=== PATIENT | female | born 1980 | race Two or more races ===

== ENCOUNTER → 2020-06-11 12:52 | Outpatient (BNVA) | payer OTHER, SELFPAY | PROVIDERS: PCP Internal Medicine Geriatric Medicine; Referring Provider Internal Medicine Geriatric Medicine; Visit Provider Internal Medicine | DX: Z76.89 Persons encountering health services in other specified circumstances (principal) | CPT/HCPCS: 99214 ==

== ENCOUNTER 2020-07-09 10:37 | Outpatient (REF) | payer OTHER, SELFPAY ==
[2020-07-09 12:57] LABS: Thyroid Stimulating Hormone 0.04 mIU/mL (0.32-4.0)
== END 2020-07-09 10:38 | disposition home or self-care (01) ==
LOC: HO.LAB 10:37
PROVIDERS: PCP Internal Medicine Geriatric Medicine; Visit Provider Internal Medicine
DX: C73 Malignant neoplasm of thyroid gland (principal)
CPT/HCPCS: 84439; 84443

== ENCOUNTER 2020-08-18 09:31 | Outpatient (REF) | payer OTHER, SELFPAY | END 2020-08-18 09:32 | disposition home or self-care (01) | LOC: HO.LAB 09:31 | PROVIDERS: PCP Internal Medicine Geriatric Medicine; Visit Provider Internal Medicine | DX: Z13.89 Encounter for screening for other disorder (principal) ==

== ENCOUNTER 2020-08-20 07:49 | Outpatient (REF) | payer OTHER, SELFPAY ==
[2020-08-20 14:10] LABS: Free T4 (Free Thyroxine) 1.47 ng/dL (0.71-1.85); Thyroid Stimulating Hormone 0.33 uIU/mL (0.32-4.0)
[2020-08-25 23:57] LABS: FT4 by Equilib. Dialysis 2.4 ng/dL (0.9-2.2)
== END 2020-08-20 07:50 | disposition home or self-care (01) ==
LOC: HO.LAB 07:49
PROVIDERS: PCP Internal Medicine Geriatric Medicine; Visit Provider Internal Medicine
DX: C73 Malignant neoplasm of thyroid gland (principal); E89.0 Postprocedural hypothyroidism; E55.9 Vitamin D deficiency, unspecified
CPT/HCPCS: 84439; 84443

== ENCOUNTER 2020-10-09 11:45 | Outpatient (REF) | payer OTHER, SELFPAY ==
[2020-10-09 14:56] LABS: Free T4 (Free Thyroxine) 1.46 ng/dL (0.71-1.85); Thyroid Stimulating Hormone 0.12 uIU/mL (0.32-4.0)
[2020-10-10 06:47] LABS: Triiodothyronine T3 Total 62 ng/dL (76-181)
[2020-10-18 06:27] LABS: FT4 by Equilib. Dialysis 2.6 ng/dL (0.9-2.2)
== END 2020-10-09 11:46 | disposition home or self-care (01) ==
LOC: HO.10HDL 11:45
PROVIDERS: Visit Provider Internal Medicine
DX: E89.0 Postprocedural hypothyroidism (principal); C73 Malignant neoplasm of thyroid gland
CPT/HCPCS: 36415; 84439; 84443; 84480

== ENCOUNTER → 2020-10-15 08:05 | Outpatient (BNVA) | payer OTHER, SELFPAY | PROVIDERS: PCP Internal Medicine Geriatric Medicine; Visit Provider Internal Medicine ==

== ENCOUNTER 2020-10-30 16:21 | Outpatient (REF) | payer OTHER, SELFPAY ==
--- NOTE | ~2020-10-30 | US_ITS ---
EXAMINATION: US SOFT TISSUE NECK CLINICAL INFORMATION: C73 - Malignant neoplasm of thyroid gland COMPARISON: CT neck with contrast, report 04/22/2019, ultrasound-guided lymph node fine-needle aspiration report 04/20/2019. TECHNIQUE: Ultrasound of the neck soft tissues is performed with high frequency duffy-scale imaging and color Doppler. FINDINGS: RIGHT NECK SOFT TISSUES: Scattered architecturally normal nodes are present. The nodes show normal fatty hilus, normal cortical thickness, and no cystic change or calcification. No abnormal color flow. The largest nodes are as follows: Level 2: 2.1 x 0.7 x 1.3 cm. Normal nicole architecture. Level 2: 1.4 x 0.5 x 1.2 cm. Normal nicole architecture. Level 3: 1.9 x 0.7 x 1.4 cm. Normal nicole architecture. LEFT NECK SOFT TISSUES: Scattered architecturally normal nodes are present. The nodes show normal fatty hilus, normal cortical thickness, and no cystic change or calcification. No abnormal color flow. Level 1B: 1.2 x 0.6 x 0.9 cm. Normal nicole architecture. Level 1B: 1.2 x 0.5 x 0.9 cm. Normal nicole architecture. US/US soft tiss head and/or neck IMPRESSION: 1. Bilateral architecturally normal nodes. No lymphadenopathy. 2. If further evaluation is clinically indicated, CT neck with contrast would be recommended.
== END 2020-10-30 16:22 | disposition home or self-care (01) ==
LOC: HO.US 16:21
PROVIDERS: PCP Internal Medicine Geriatric Medicine; Visit Provider Internal Medicine
DX: C73 Malignant neoplasm of thyroid gland (principal)
CPT/HCPCS: 76536

== ENCOUNTER → 2020-11-19 12:49 | Outpatient (BNVA) | payer OTHER, SELFPAY | PROVIDERS: PCP Internal Medicine Geriatric Medicine; Visit Provider Internal Medicine | DX: C73 Malignant neoplasm of thyroid gland (principal) | CPT/HCPCS: 96372 ==

== ENCOUNTER → 2020-11-20 12:53 | Outpatient (BNVA) | payer OTHER, SELFPAY | PROVIDERS: PCP Internal Medicine Geriatric Medicine; Visit Provider Internal Medicine Endocrinology, Diabetes & Metabolism | DX: C73 Malignant neoplasm of thyroid gland (principal) | CPT/HCPCS: 96372 ==

== ENCOUNTER 2020-11-21 12:45 | Outpatient (REF) | payer OTHER, SELFPAY ==
[2020-11-21 14:44] LABS: Thyroid Stimulating Hormone 91.16 uIU/mL (0.32-4.0)
[2020-11-22 18:01] LABS: Thyroglobulin 0.3 ng/mL; Thyroglobulin Antibodies 6 IU/mL (< or = 1)
== END 2020-11-21 12:46 | disposition home or self-care (01) ==
LOC: HO.10HDL 12:45
PROVIDERS: Visit Provider Internal Medicine
DX: C73 Malignant neoplasm of thyroid gland (principal)
CPT/HCPCS: 36415; 84432; 84443; 86800

== ENCOUNTER 2020-11-22 12:35 | Outpatient (REF) | payer OTHER, SELFPAY ==
[2020-11-22 14:45] LABS: Thyroid Stimulating Hormone 26.82 uIU/mL (0.32-4.0)
[2020-11-23 05:12] LABS: Thyroglobulin 0.3 ng/mL
[2020-11-23 09:07] LABS: Thyroglobulin Antibodies 6 IU/mL (< or = 1)
== END 2020-11-22 12:36 | disposition home or self-care (01) ==
LOC: HO.10HDL 12:35
PROVIDERS: Visit Provider Internal Medicine
DX: C73 Malignant neoplasm of thyroid gland (principal)
CPT/HCPCS: 36415; 84432; 84443; 86800

== ENCOUNTER → 2020-12-17 09:13 | Outpatient (BNVA) | payer OTHER, SELFPAY | PROVIDERS: PCP Internal Medicine Geriatric Medicine; Visit Provider Internal Medicine ==

== ENCOUNTER 2020-12-18 12:27 | Outpatient (REF) | payer OTHER, SELFPAY ==
[2020-12-18 14:27] LABS: Free T4 (Free Thyroxine) 1.05 ng/dL (0.71-1.85); Thyroid Stimulating Hormone 11.05 uIU/mL (0.32-4.0)
[2020-12-26 18:32] LABS: FT4 by Equilib. Dialysis 1.8 ng/dL (0.9-2.2)
== END 2020-12-18 12:28 | disposition home or self-care (01) ==
LOC: HO.10HDL 12:27
PROVIDERS: Visit Provider Internal Medicine
DX: C73 Malignant neoplasm of thyroid gland (principal)
CPT/HCPCS: 36415; 84439; 84443

== ENCOUNTER 2021-02-09 07:15 | Outpatient (REF) | payer OTHER, SELFPAY ==
[2021-02-09 09:01] LABS: Free T4 (Free Thyroxine) 1.46 ng/dL (0.71-1.85)
[2021-02-11 20:17] LABS: Thyroglobulin Antibodies 4 IU/mL (< or = 1); Triiodothyronine T3 Total 98 ng/dL (76-181)
[2021-02-12 01:06] LABS: Thyroglobulin <0.1 ng/mL
[2021-02-16 01:36] LABS: FT4 by Equilib. Dialysis 2.7 ng/dL (0.9-2.2)
== END 2021-02-09 07:16 | disposition home or self-care (01) ==
LOC: HO.LAB 07:15
PROVIDERS: PCP Internal Medicine Geriatric Medicine; Visit Provider Internal Medicine
DX: C73 Malignant neoplasm of thyroid gland (principal); E89.0 Postprocedural hypothyroidism
CPT/HCPCS: 36415; 84432; 84439; 84443; 84480; 86800

== ENCOUNTER → 2021-02-11 09:09 | Outpatient (BNVA) | payer OTHER, SELFPAY | PROVIDERS: PCP Internal Medicine Geriatric Medicine; Visit Provider Internal Medicine ==

== ENCOUNTER 2021-05-15 11:45 | Outpatient (REF) | payer OTHER, SELFPAY ==
[2021-05-15 14:29] LABS: Free T4 (Free Thyroxine) 1.41 ng/dL (0.71-1.85); Thyroid Stimulating Hormone 0.53 uIU/mL (0.32-4.0)
[2021-05-22 06:17] LABS: FT4 by Equilib. Dialysis 2.1 ng/dL (0.9-2.2)
== END 2021-05-15 11:46 | disposition home or self-care (01) ==
LOC: HO.10HDL 11:45
PROVIDERS: Visit Provider Internal Medicine
DX: E89.0 Postprocedural hypothyroidism (principal)
CPT/HCPCS: 36415; 84439; 84443

== ENCOUNTER → 2021-05-16 08:24 | Outpatient (BNVA) | payer OTHER, SELFPAY | PROVIDERS: PCP Internal Medicine Geriatric Medicine; Visit Provider Internal Medicine ==

== ENCOUNTER 2021-05-17 17:07 | Emergency (ER) | payer OTHER, SELFPAY ==
--- NOTE | ~2021-05-17 | XR_ITS ---
EXAMINATION: XR LUMBOSACRAL SPINE CLINICAL INFORMATION: Low back pain COMPARISON: None TECHNIQUE: Three views of the lumbosacral spine. FINDINGS: The vertebral bodies and posterior elements are normal aside from some minimal superior spondylitic endplate changes at L4.. The disc spaces are preserved and the vertebral alignment is normal. The paraspinal soft tissues are normal. Surgical clips are present in the upper abdomen. XR/XR lumbar spine 2-3V IMPRESSION: Unremarkable examination.
[2021-05-17 17:54] VITALS: BP 151/93; PULSE 73; RESP 16; TEMP 37.2; O2SAT 98; BMI 41.3
--- NOTE | 2021-05-17 21:26 | ED.ABDPAIN ---
HPI - Abdominal Pain General Chief Complaint: Extremity Injury, Lower Stated Complaint: leg pain Time Seen by Provider: 05/17/21 22:51 Source: patient Mode of arrival: ambulatory Limitations: no limitations History of Present Illness HPI narrative: 41-year-old female presents for left lower quadrant abdominal pain radiating to her groin and to her back and down the right knee. States that she has had this pain for approximately 2 days. Does not report any injury or any other concerning symptoms. MD elicited complaint: abdominal pain Onset (ago): day(s) (2) Pain Consistency: constant Severity: moderate Quality: cramping and aching Radiation: L flank Exacerbating factors: movement Relieving factors: nothing Associated symptoms: denies other symptoms Related Data Patient : No Home Medications Medication Instructions Recorded Confirmed ipratropium 20 mcg-albuterol 100 1 puff INHALATION QID 06/11/20 05/16/21 mcg/actuation mist for inhalation (Combivent Respimat) fluticasone propionate 50 1 spray INTRANASAL DAILY PRN 10/15/20 05/16/21 mcg/actuation nasal spray,suspension (Flonase Allergy Relief) Previous Rx's Medication Instructions Recorded levothyroxine 175 mcg tablet 175 mcg PO DAILY 30 Days #30 tab 12/19/20 nitrofurantoin 100 mg PO Q12H 7 Days #14 cap 05/17/21 monohydrate/macrocrystals 100 mg capsule (Macrobid) phenazopyridine 200 mg tablet 200 mg PO TID PRN #6 tab 05/17/21 (Pyridium) Allergies Allergy/AdvReac Type Severity Reaction Status Date / Time drospirenone [From SHAQ 28] Allergy Unknown SWELLING Verified 05/16/21 09:30 ethinyl estradiol Allergy Unknown SWELLING Verified 05/16/21 09:30 [From SHAQ 28] naproxen [From NAPROSYN] Allergy Unknown SWELLING Verified 05/16/21 09:30 sulfamethoxazole Allergy Unknown RASH Verified 05/16/21 09:30 [From BACTRIM] trimethoprim [From BACTRIM] Allergy Unknown RASH Verified 05/16/21 09:30 adhesive tape Allergy Unknown Unknown Uncoded 05/16/21 09:30 uti antibiotic Allergy Unknown Unknown Uncoded 05/16/21 09:30 Review of Systems Review of Systems Constitutional: No Fever, No Chills ENT/Mouth: No Ear Pain, No Hoarseness, No sore throat Eyes: No Eye Pain, No Swelling, No Redness, No Foreign Body Cardiovascular: No Chest Pain, No SOB Respiratory: No Cough, No Dyspnea Gastrointestinal: No Nausea, No Vomiting, No Diarrhea, positive abdominal Pain Genitourinary: No Dysuria, No Hematuria Musculoskeletal: positive lower back pain, No Myalgias, No Joint Swelling Skin: No Skin lacerations, No rash Neuro: No Weakness, No Numbness, No Paresthesias, No Loss of Consciousness, No Dizziness, No Headache Psych: No Anxiety/Panic, No Depression Heme/Lymph: no easy bruising, no Lymphadenopathy Endocrine: No Polyuria, No Polydipsia Yes all other systems are reviewed and are negative Physical Exam Vital Signs: Vital Signs: Last Vital Signs Temp 98.9 F 05/17/21 17:54 Pulse 73 05/17/21 17:54 Resp 16 05/17/21 17:54 BP 151/93 H 05/17/21 17:54 Pulse Ox 98 05/17/21 17:54 Body Mass Index 41.3 Appearance: Alert. Oriented X3. No acute distress. Eyes: Pupils equal, round and reactive to light. ENT: Pharynx normal. Neck: Normal inspection. Neck supple. CVS: Normal heart rate and rhythm. Pulses normal. Respiratory: No respiratory distress. Breath sounds normal. Abdomen: Soft and nontender. Skin: Skin warm and dry. Normal skin color. Normal skin turgor. Extremities: No lower extremity edema. Strength 5/5 to all extremities, gait well balanced well coordinated. Neuro: No motor deficit. No sensory deficit. Cranial nerves 2 through 12 intact. Course Course Course Narrative: 41-year-old female presents with left lower abdominal pain radiating to her groin and lower back pain. States that she is also trying to get at this time. Will order urinalysis and U preg. U preg is negative will order lumbar spine x-ray. Urinalysis positive for UTI. Lumbar x-ray negative. U preg negative. Plan of care is to treat for UTI. Patient verbalized understanding of and agrees to plan care discharge home. MDM - Abdominal Pain MDM Narrative Medical decision making narrative: UTI Differential Diagnosis Differential diagnosis: Likely abdominal pain and constipation Medical Records Attestation: I reviewed the patient's medical records. Lab Data Attestation: I reviewed the patient's lab results. Labs: Lab Results 05/17/21 05/17/21 Range/Units 22:17 22:17 Urine Color DK YELLOW Urine Appearance CLEAR Urine pH 6.0 (5.0-8.0) Ur Specific [place] >= 1.030 H (1.005-1.025) Urine Protein NEG (NEG-TRACE) MG/DL Urine Glucose (UA) NEG (NEG) MG/DL Urine Ketones 15 (NEG) MG/DL Urine Blood NEG (NEG) Urine Nitrite NEG (NEG) Ur Leukocyte Esterase 2+ H (NEG) Urine RBC 1-4 (0) /HPF Urine WBC 15-29 H (0-4) /HPF Ur Squamous Epith Cells 3+ /LPF Uric Acid Crystals 1+ /LPF Urine Bacteria 2+ /LPF Urine Mucus 4+ /LPF Urine Test NEGATIVE (NEGATIVE) Imaging Data Lumbar: Attestation: I personally reviewed and interpreted this imaging study as follows: Radiologist's impression: EXAMINATION: XR LUMBOSACRAL SPINE CLINICAL INFORMATION: Low back pain COMPARISON: None TECHNIQUE: Three views of the lumbosacral spine. FINDINGS: The vertebral bodies and posterior elements are normal aside from some minimal superior spondylitic endplate changes at L4.. The disc spaces are preserved and the vertebral alignment is normal. The paraspinal soft tissues are normal. Surgical clips are present in the upper abdomen. XR/XR lumbar spine 2-3V IMPRESSION: Unremarkable examination. Discharge Plan Discharge Clinical Impression: Urinary tract infection Qualifiers: Urinary tract infection type: acute cystitis Hematuria presence: with hematuria Qualified Code(s): N30.01 - Acute cystitis with hematuria Patient Disposition: Home, Self-Care Instructions: Urinary Tract Infection in Women (ED) Additional Instructions: You were evaluated for lower back pain and groin pain. Urinalysis positive for UTI. Please take Macrobid twice a day for the next 7 days. This medication is an antibiotic. Please use Pyridium for bladder spasms and pain. This medication will turn your urine bright orange. This is a normal side effect of this medication. Thank you for choosing this emergency department for evaluation. Please follow-up with primary care physician as needed. Return to the emergency department for any new, concerning, or worsening symptoms. Prescriptions: New phenazopyridine [Pyridium] 200 mg tablet 200 mg PO TID PRN (Reason: pain) Qty: 6 RF: 0 nitrofurantoin monohyd/m-cryst [Macrobid] 100 mg capsule 100 mg PO Q12H 7 Days Qty: 14 RF: 0 No Action levothyroxine 175 mcg tablet 175 mcg PO DAILY 30 Days Qty: 30 RF: 4 Combivent Respimat 20-100 mcg/actuation mist 1 puff inhalation QID RF: 0 fluticasone propionate [Flonase Allergy Relief] 50 mcg/actuation spray,suspension 1 spray intranasal DAILY PRN (Reason: nasal congestion) RF: 0 Interventions: ED Discharge Assessment Last Done: 05/18/21 00:01 Discharge Date/Time: 05/18/21 00:02 [facility] Past Medical History Attestation statement: The following information was validated with the patient. Source: old records reviewed Medical History Hypothyroidism Thyroid cancer Vitamin D deficiency Surgical History Hx of dilation and curettage Hx of thyroidectomy Family History Family History Father Asthma Hypertension Mother Hypertension Social History Social History Alcohol intake: current Alcohol intake frequency: holidays/special occasions only Patient Tobacco Use Status: Never used Tobacco Advance Directives: No Advance Directives Information Provided: No Patient : No
[2021-05-17 22:23] LABS: Appearance Urine CLEAR; Color Urine DK YELLOW; Glucose Urine UA NEG (NEG); Leukocyte Esterase Urine 2+ (NEG); Nitrite Urine NEG (NEG); Specific Gravity - Urine >= 1.030 (1.005-1.025); UACC Culture Trigger YES; Urine Blood NEG (NEG); Urine Ketones 15 MG/DL (NEG); Urine Protein NEG (NEG-TRACE)
[2021-05-17 22:38] LABS: Bacteria Urine 2+ /LPF; Mucus Urine 4+ /LPF; Squamous Epithelial Cell Urine 3+ /LPF; UPreg QC Valid YES; Uric Acid Crystals Urine 1+ /LPF; Urine Pregnancy NEGATIVE (NEGATIVE)
[2021-05-18] MEDS: Phenazopyridine HCL 200 MG TABLET PO (00:01)
[2021-05-18] MEDS: Nitrofurantoin Monohyd/M-Cryst 100 MG CAPSULE PO (00:01)
== END 2021-05-18 00:02 | disposition home or self-care (01) ==
PROVIDERS: Nurse Practitioner Family; Emergency Provider Emergency Medicine Emergency Medical Services; PCP Internal Medicine Geriatric Medicine
DX: N30.01 Acute cystitis with hematuria (principal); M54.5 Low back pain; R10.32 Left lower quadrant pain; Z79.899 Other long term (current) drug therapy
CPT/HCPCS: 72100; 81001; 81025; 87086; 87147; 99283

== ENCOUNTER 2021-05-21 11:24 | Outpatient (REF) | payer OTHER, SELFPAY ==
--- NOTE | ~2021-05-21 | US_ITS ---
EXAMINATION: US SOFT TISSUE NECK CLINICAL INFORMATION: Thyroid cancer. COMPARISON: 10/30/2020 TECHNIQUE: Ultrasound of the neck soft tissues is performed with high- frequency duffy-scale imaging and color Doppler. FINDINGS: THYROID BED: Prior thyroidectomy. No residual thyroid tissue demonstrated in the thyroid bed. No cystic or solid nodules demonstrated in the thyroid bed. There are numerous normal-appearing lymph nodes seen bilaterally RIGHT NECK SOFT TISSUES: Scattered lymph nodes are present. Some appear normal with normal fatty clefts and smooth margins without cortical thickening or lobulation. A few are abnormal and will be listed. The largest nodes are as follows: Level 3: 2.2 x 0.6 x 0.6 cm. Normal nicole architecture Level 3: 1.9 x 0.7 x 1.4 cm. Normal nicole architecture. Cortical thickness of 2.5 mm. There is an abnormal right level 1B lymph node that was not previously seen measuring 5 x 5 x 5 mm in size. It is rounded in appearance without fatty hilum identified. There is an abnormal lymph node seen within level 1B measuring 1.1 x 0.5 x 0.9 cm in size with a nodular cortex. There is normal fatty cleft present and no cortical thickening. There is an abnormal lymph node seen at level 1B which is essentially stable in size to previous study measuring 8 x 6 x 8 mm in size with some cortical nodularity but without significant change from prior study. Fatty hilum present. There is an abnormal-appearing lymph node level IA measuring 3 x 2 x 3 mm in size which is smaller than on prior study where it measured 5 x 4 x 5 mm in size. LEFT NECK SOFT TISSUES: Scattered architecturally normal nodes are present. The nodes show normal fatty hilus, normal cortical thickness, and no cystic change or calcification. No abnormal color flow. The largest nodes are as follows: Level 3: 1.1 x 0.3 x 0.8 cm. Normal nicole architecture. This was not noted on previous study. Level 3: 1.3 x 0.5 x 0.6 cm. Normal nicole architecture. This has enlarged and previously was 1.3 x 0.5 x 0.6 cm in size. Level 1B: 1.5 x 0.5 x 1.2 cm in size compared to previous study where it measured 1.2 x 0.6 x 0.9 cm in size. Normal nicole architecture. There are 3 other lymph nodes that were not seen on prior study: One within level 2 measuring 5 x 2 x 5 mm in size. This has normal architecture. Another is in level 3 measuring 1.1 x 0.3 x 0.8 cm in size. This has normal architecture. The third is in segment 5A measuring 6 x 4 x 5 mm in size with normal architecture. US/US soft tiss head and/or neck IMPRESSION: Numerous bilateral neck lymph nodes with normal architecture on the left with a few lymph nodes not noted previously as described. Some abnormal-appearing right neck lymph nodes as described above. In previous report it is stated that biopsies were performed of bilateral lymph nodes however none are listed as being within level 1 within the right neck where most of the abnormal-appearing lymph nodes are seen.
== END 2021-05-21 11:25 | disposition home or self-care (01) ==
LOC: HO.HMGCX 11:24
PROVIDERS: PCP Internal Medicine Geriatric Medicine; Visit Provider Internal Medicine
DX: C73 Malignant neoplasm of thyroid gland (principal)
CPT/HCPCS: 76536

== ENCOUNTER 2021-05-27 16:40 | Emergency (ER) | payer OTHER, SELFPAY ==
--- NOTE | ~2021-05-27 | CT_ITS ---
EXAMINATION: CT ABDOMEN AND PELVIS WITHOUT CONTRAST CLINICAL INFORMATION: Left flank pain COMPARISON: None TECHNIQUE: Multidetector volumetric imaging was performed from the superior aspect of the liver through the pubic symphysis. Sagittal and coronal reformatted images were obtained on the technologist's workstation. This CT examination was performed using dose optimization techniques as appropriate, variously including the following: *Automated exposure control *Adjustment of mA and/or kV according to patient size (this includes techniques or standardized protocols for targeted exams where dose is matched to indication/reason for exam; i.e. extremities or head) *Use of iterative reconstruction technique DLP: 895 mGy-cm FINDINGS: LUNG BASES: There is a 4 mm lung nodule in the right lower lobe (4:34). Some minimal bibasilar atelectasis is seen. The visualized lung bases are otherwise unremarkable. LIVER, GALLBLADDER, AND BILIARY TREE: The liver is normal in size, shape, and attenuation. No focal hepatic lesion or biliary ductal dilatation is present. The gallbladder is unremarkable with no evidence of radiopaque gallstones, gallbladder wall thickening, or obvious pericholecystic inflammatory changes. PANCREAS: Unremarkable. SPLEEN: There is mild splenic enlargement with the spleen measuring 12.9 cm in greatest length. ADRENAL GLANDS: Unremarkable. KIDNEYS AND URETERS: The kidneys are normal in size, shape, and attenuation. No hydronephrosis, hydroureter, or calculi seen. No perinephric stranding. BLADDER: Unremarkable. GASTROINTESTINAL TRACT: There is been previous bariatric gastric surgery. The small and large bowel are unremarkable. The appendix is is not seen but there is no evidence of appendicitis. ABDOMINAL WALL: No significant hernia is appreciated. Tiny umbilical hernia seen containing only fat. LYMPH NODES: Normal. VASCULAR: Unremarkable. PELVIC VISCERA: An anteverted uterus is present. An abnormal adnexal mass is not present. A small amount of fluid is present in the cul-de-sac. OSSEOUS STRUCTURES: Unremarkable. CT/CT abdomen pelvis wo con IMPRESSION: 1. An etiology for the patient's left flank pain is not seen. 2. Incidental note made of mild splenomegaly, prior bariatric surgery and 4 mm right lower lobe lung nodule. According to the UPDATED 2017 Fleischner Society recommendations, the advised follow-up imaging for solid nodules < 6 mm is: LOW RISK PATIENT: No routine follow-up. HIGH RISK PATIENT: Optional CT at 12 months.
[2021-05-27 17:32] VITALS: BP 146/101; PULSE 67; RESP 18; TEMP 36.1; O2SAT 100; BMI 41.7
[2021-05-27 17:56] LABS: Appearance Urine HAZY; Color Urine YELLOW; Glucose Urine UA NEG (NEG); Leukocyte Esterase Urine NEG (NEG); Nitrite Urine NEG (NEG); PH 6.5 (5.0-8.0); UACC Culture Trigger NO; Urine Blood TRACE (NEG); Urine Ketones 5 MG/DL (NEG); Urine Protein TRACE MG/DL (NEG-TRACE)
[2021-05-27 18:27] LABS: Bacteria Urine 1+ /LPF; Squamous Epithelial Cell Urine 2+ /LPF; WBC Urine 0 /HPF (0-4)
--- NOTE | 2021-05-27 20:55 | ED.BACK ---
HPI - Back Pain/Injury General Chief Complaint: General Medical Stated Complaint: hip pain, low back pain Time Seen by Provider: 05/27/21 20:54 Source: patient Mode of arrival: ambulatory Limitations: no limitations History of Present Illness MD elicited complaint: back pain Onset (ago): week(s) (1) Timing: constant Severity: severe Similar Symptoms Previously: No Quality: sharp Location: lumbar spine Radiation: groin, buttocks and left upper leg Relieving factors: movement Context: unknown Associated symptoms: denies other symptoms Treatments prior to arrival: other (was seen recently had xrays - UA + took abx no relief of pain) Work related injury: No Related Data Home Medications Medication Instructions Recorded Confirmed ipratropium 20 mcg-albuterol 100 1 puff INHALATION QID 06/11/20 05/16/21 mcg/actuation mist for inhalation (Combivent Respimat) fluticasone propionate 50 1 spray INTRANASAL DAILY PRN 10/15/20 05/16/21 mcg/actuation nasal spray,suspension (Flonase Allergy Relief) Previous Rx's Medication Instructions Recorded levothyroxine 175 mcg tablet 175 mcg PO DAILY 30 Days #30 tab 12/19/20 nitrofurantoin 100 mg PO Q12H 7 Days #14 cap 05/17/21 monohydrate/macrocrystals 100 mg capsule (Macrobid) phenazopyridine 200 mg tablet 200 mg PO TID PRN #6 tab 05/17/21 (Pyridium) cyclobenzaprine 10 mg tablet 10 mg PO TID PRN #14 tab 05/27/21 ibuprofen 600 mg tablet 600 mg PO Q6H PRN #30 tab 05/27/21 lidocaine 4 % topical patch 1 patch TOPICAL DAILY PRN #10 ea 05/27/21 prednisone 20 mg tablet 20 mg PO DAILY 5 Days #5 tab 05/27/21 Allergies Allergy/AdvReac Type Severity Reaction Status Date / Time drospirenone [From SHAQ 28] Allergy Unknown SWELLING Verified 05/16/21 09:30 ethinyl estradiol Allergy Unknown SWELLING Verified 05/16/21 09:30 [From SHAQ 28] naproxen [From NAPROSYN] Allergy Unknown SWELLING Verified 05/16/21 09:30 sulfamethoxazole Allergy Unknown RASH Verified 05/16/21 09:30 [From BACTRIM] trimethoprim [From BACTRIM] Allergy Unknown RASH Verified 05/16/21 09:30 adhesive tape Allergy Unknown Unknown Uncoded 05/16/21 09:30 uti antibiotic Allergy Unknown Unknown Uncoded 05/16/21 09:30 Review of Systems Review of Systems: Constitutional : No Weight loss, No Fever, No Chills, ENT/Mouth : No Hearing loss, No Ear Pain, No Nasal Congestion, No Sinus Pain, No Hoarseness, No sore throat, No Rhinorrhea, No Swallowing Difficulty Cardiovascular : No Chest Pain, No SOB Respiratory : No Cough, No Dyspnea Gastrointestinal : No Nausea, No Vomiting, No Diarrhea, No abdominal Pain, No Hematochezia, No Melena Genitourinary : No Dysuria, No Urinary Frequency, No Hematuria, No Urinary Incontinence, Musculoskeletal : positive back pain Skin : No Skin Lesions, No rash Neuro : No Weakness, No Numbness, No Paresthesias, no loss of bowel or bladder incontinence, no saddle anesthesia PMFSH Past Medical History Attestation statement: The following information was validated with the patient. Medical History Hypothyroidism Thyroid cancer Vitamin D deficiency Surgical History Hx of dilation and curettage Hx of thyroidectomy Family History Family History Father Asthma Hypertension Mother Hypertension Social History Social History Alcohol intake: current Alcohol intake frequency: holidays/special occasions only Patient Tobacco Use Status: Never used Tobacco Advance Directives: No Advance Directives Information Provided: No Physical Exam Vital Signs: Vital Signs: Last Vital Signs Temp 97.0 F 05/27/21 17:32 Pulse 57 05/27/21 21:36 Resp 16 05/27/21 21:36 BP 131/72 05/27/21 21:36 Pulse Ox 100 05/27/21 21:36 Body Mass Index 41.7 Appearance: Alert. Oriented X3. No acute distress. Eyes: Pupils equal, round and reactive to light. ENT: Pharynx normal. Neck: Normal inspection. Neck supple. CVS: Normal heart rate and rhythm. Pulses normal. Respiratory: No respiratory distress. Breath sounds normal. Abdomen: Soft and nontender. Back: ttp in L buttock radiates pain down LLE - NV intact distally Skin: Skin warm and dry. Normal skin color. Normal skin turgor. Extremities: No lower extremity edema. No calf ttp Neuro: Oriented X 3. No motor deficit. No sensory deficit. MDM - Back Pain/Injury MDM Narrative Medical decision making narrative: 41 yo female with hx of thyroid cancer - at this time c/o L sciatica distal NV intact, no b/b incontinence, no saddle anesthesia - no AC therapy, at this time will treat with toradol and flexeril. She does have history of thyroid cancer - CT scan for mass ordered, just had neck US there were some slight enlarged lymph nodes though I do think this is sciatica. Lab Data Result diagrams: 05/27/21 21:14 05/27/21 21:14 Labs: Lab Results 05/27/21 05/27/21 05/27/21 Range/Units 17:48 21:14 21:14 WBC 4.2 L (4.8-10.8) X10*3/uL RBC 4.03 L (4.20-5.50) X10*6/uL Hgb 12.0 (12.0-16.0) g/dl Hct 36.4 L (37-47) % MCV 90.3 (80-98) fL MCH 29.8 (27.0-33.0) pg MCHC 33.0 (31.0-35.0) g/dl RDW 14.3 (11.0-16.0) % Plt Count 171 (160-400) X10*3/uL MPV 12.7 H (9.4-12.3) fL Immature Gran % (Auto) 0.0 (0.0-0.4) % Neut % (Auto) 46.7 (45-73) % Lymph % (Auto) 32.1 (20-40) % [place] % (Auto) 13.8 H (2-11) % Eos % (Auto) 6.4 H (0-4) % Baso % (Auto) 1.0 (0-2) % Lymph # (Auto) 1.4 (1.2-4.9) X10*3/uL [place] # (Auto) 0.6 (0.1-1.2) X10*3/uL Eos # (Auto) 0.3 (0.0-0.4) X10*3/uL Baso # (Auto) 0.0 (0.0-0.2) X10*3/uL Abs Immat Gran (auto) 0.00 (0.00-0.03) X10*3/uL Absolute Neuts (auto) 2.0 (2.0-8.3) X10*3/uL Absolute Nucleated RBC 0.000 (0.0-0.012) X10*3/uL Nucleated RBC % (auto) 0.0 (0.0-0.2) /100WBC Sodium 142 (135-145) mmol/L Potassium 3.9 (3.3-5.1) mmol/L Chloride 112 H (96-108) mmol/L Carbon Dioxide 25 (22-29) mmol/L Anion Gap 9 L (12-20) BUN 14 (9-16) mg/dL Creatinine 0.63 (0.5-1.4) mg/dL Estim Creat Clear Calc 126.2 Estimated GFR > 60 Random Glucose 97 (60-115) mg/dL Calcium 8.2 L (8.4-10.2) mg/dL Urine Color YELLOW Urine Appearance HAZY Urine pH 6.5 (5.0-8.0) Ur Specific [place] 1.020 (1.005-1.025) Urine Protein TRACE (NEG-TRACE) MG/DL Urine Glucose (UA) NEG (NEG) MG/DL Urine Ketones 5 (NEG) MG/DL Urine Blood TRACE (NEG) Urine Nitrite NEG (NEG) Ur Leukocyte Esterase NEG (NEG) Urine RBC 1-4 (0) /HPF Urine WBC 0 (0-4) /HPF Ur Squamous Epith Cells 2+ /LPF Urine Bacteria 1+ /LPF Discharge Plan Discharge Clinical Impression: Sciatica Qualifiers: Laterality: left Qualified Code(s): M54.32 - Sciatica, left side Patient Disposition: Home, Self-Care Instructions: Sciatica (ED) Additional Instructions: return to ED for any worsening symptoms or concerns Prescriptions: New cyclobenzaprine 10 mg tablet 10 mg PO TID PRN (Reason: muscle spasm) Qty: 14 RF: 0 lidocaine 4 % adhesive patch,medicated 1 patch topical DAILY PRN (Reason: pain) Qty: 10 RF: 0 prednisone 20 mg tablet 20 mg PO DAILY 5 Days Qty: 5 RF: 0 ibuprofen 600 mg tablet 600 mg PO Q6H PRN (Reason: pain) Qty: 30 RF: 0 No Action levothyroxine 175 mcg tablet 175 mcg PO DAILY 30 Days Qty: 30 RF: 4 phenazopyridine [Pyridium] 200 mg tablet 200 mg PO TID PRN (Reason: pain) Qty: 6 RF: 0 nitrofurantoin monohyd/m-cryst [Macrobid] 100 mg capsule 100 mg PO Q12H 7 Days Qty: 14 RF: 0 Combivent Respimat 20-100 mcg/actuation mist 1 puff inhalation QID RF: 0 fluticasone propionate [Flonase Allergy Relief] 50 mcg/actuation spray,suspension 1 spray intranasal DAILY PRN (Reason: nasal congestion) RF: 0 Referrals: Name,MD [place] [Primary Care Provider] - 2 days Stand Alone Forms: Work/School Release
[2021-05-27 21:17] LABS: MANUAL DIFF FLAG NO
[2021-05-27 21:19] LABS: Eosinophils Absolute Auto 0.3 X10*3/uL (0.0-0.4); Eosinophils Percent Auto 6.4 % (0-4); Hematocrit 36.4 % (37-47); Lymphocytes Absolute Auto 1.4 X10*3/uL (1.2-4.9); Lymphocytes Percent Auto 32.1 % (20-40); Mean Corpuscular Hemoglobin 29.8 pg (27.0-33.0); Mean Corpuscular Volume 90.3 fL (80-98); Mean Platelet Volume 12.7 fL (9.4-12.3); Monocytes Absolute Auto 0.6 X10*3/uL (0.1-1.2); Monocytes Percent Auto 13.8 % (2-11); Neutrophils Percent Auto 46.7 % (45-73); Platelet Count 171 X10*3/uL (160-400); Red Blood Count 4.03 X10*6/uL (4.20-5.50); Red Cell Distribution Width 14.3 % (11.0-16.0); White Blood Count 4.2 X10*3/uL (4.8-10.8)
[2021-05-27] MEDS: Cyclobenzaprine HCl 10 MG TABLET PO (21:27)
[2021-05-27] MEDS: Ketorolac Tromethamine 60 MG/2 ML VIAL IM (21:28)
[2021-05-27 21:34] LABS: Anion Gap 9 (12-20); Blood Urea Nitrogen 14 mg/dL (9-16); Calcium 8.2 mg/dL (8.4-10.2); Carbon Dioxide 25 mmol/L (22-29); Chloride 112 mmol/L (96-108); Creatinine Clr Calc Pharmacy 126.2; Estimated Glomerular Filt Rate > 60; Glucose Random 97 mg/dL (60-115); Potassium 3.9 mmol/L (3.3-5.1); Sodium 142 mmol/L (135-145)
[2021-05-27 21:36] VITALS: BP 131/72; PULSE 57; RESP 16; O2SAT 100
== END 2021-05-27 22:43 | disposition home or self-care (01) ==
PROVIDERS: Emergency Provider Emergency Medicine; PCP Internal Medicine Geriatric Medicine
DX: M54.32 Sciatica, left side (principal); M25.552 Pain in left hip; M54.5 Low back pain; Z79.899 Other long term (current) drug therapy
CPT/HCPCS: 36415; 74176; 80048; 81001; 85025; 96372; 99284; J1885

== ENCOUNTER 2021-06-05 10:40 | Outpatient (REF) | payer OTHER, SELFPAY ==
--- NOTE | ~2021-06-05 | US_ITS ---
EXAMINATION: ULTRASOUND-GUIDED BIOPSY LYMPH NODE CLINICAL INFORMATION: Thyroid cancer. Lymphadenopathy. COMPARISON: Previous soft tissue head and neck ultrasound May and October 2020 TECHNIQUE: Procedure and risks and benefits including bleeding and infection were discussed with the patient and informed consent was obtained. Right neck in the submandibular region was prepped and draped in the usual sterile fashion. The skin and soft tissues were anesthetized with 1% lidocaine plain. Using ultrasound guidance and a 25-gauge needle,the requested right neck level 1b lymph node was aspirated. 3 separate 25-gauge FNA specimens were obtained for cytology and thyroglobulin washout studies. FINDINGS: There is a 0.8 x 1.1 x 0.5 cm in transverse sagittal and AP dimension right level 1B lymph node that was targeted for fine-needle aspiration. US/US biopsy lymph node IMPRESSION: Ultrasound-guided fine-needle aspiration of right cervical lymph node.
[2021-06-05] MEDS: Lidocaine HCl 1 % MPF 5 ML VIAL SUBCUT (12:14)
[2021-06-08 20:01] LABS: FNA Site NG; Thyroglobulin, Fine Needle Asp <0.1 ng/mL
== END 2021-06-05 10:41 | disposition home or self-care (01) ==
LOC: HO.US 10:40
PROVIDERS: Radiology Diagnostic Radiology; Visit Provider Internal Medicine
DX: C73 Malignant neoplasm of thyroid gland (principal)
CPT/HCPCS: 36415; 38505; 76942; 88172; 88173; 88177; 88184; 88185; 88300

== ENCOUNTER 2021-07-31 06:23 | Outpatient (REF) | payer OTHER, SELFPAY ==
[2021-07-31 08:04] LABS: Free T4 (Free Thyroxine) 1.23 ng/dL (0.71-1.85); Thyroid Stimulating Hormone 0.44 uIU/mL (0.32-4.0)
[2021-08-03 01:41] LABS: Thyroglobulin <0.1 ng/mL; Thyroglobulin Antibodies 3 IU/mL (< or = 1)
== END 2021-07-31 06:24 | disposition home or self-care (01) ==
LOC: HO.LAB 06:23
PROVIDERS: Visit Provider Internal Medicine
DX: C73 Malignant neoplasm of thyroid gland (principal)
CPT/HCPCS: 36415; 84432; 84439; 84443; 86800

== ENCOUNTER 2021-09-05 06:16 | Outpatient (REF) | payer OTHER, SELFPAY ==
[2021-09-05 08:12] LABS: Free T4 (Free Thyroxine) 1.14 ng/dL (0.71-1.85); Thyroid Stimulating Hormone 0.98 uIU/mL (0.32-4.0)
== END 2021-09-05 06:17 | disposition home or self-care (01) ==
LOC: HO.LAB 06:16
PROVIDERS: PCP Internal Medicine Geriatric Medicine; Visit Provider Internal Medicine
DX: E89.0 Postprocedural hypothyroidism (principal)
CPT/HCPCS: 36415; 84439; 84443

== ENCOUNTER → 2021-09-25 09:05 | Outpatient (BNVA) | payer OTHER, SELFPAY | PROVIDERS: PCP Internal Medicine Geriatric Medicine; Visit Provider Internal Medicine ==

== ENCOUNTER 2021-10-28 06:43 | Outpatient (REF) | payer OTHER, SELFPAY ==
[2021-10-28 08:08] LABS: Free T4 (Free Thyroxine) 1.04 ng/dL (0.71-1.85); Thyroid Stimulating Hormone 1.32 uIU/mL (0.32-4.0)
== END 2021-10-28 06:44 | disposition home or self-care (01) ==
LOC: HO.LAB 06:43
PROVIDERS: PCP Internal Medicine Geriatric Medicine; Visit Provider Internal Medicine
DX: C73 Malignant neoplasm of thyroid gland (principal)
CPT/HCPCS: 36415; 84439; 84443

== ENCOUNTER → 2021-12-30 09:20 | Outpatient (BNVA) | payer OTHER, SELFPAY | PROVIDERS: PCP Internal Medicine Geriatric Medicine; Visit Provider Internal Medicine | DX: Z13.89 Encounter for screening for other disorder (principal) ==

== ENCOUNTER 2022-01-02 06:06 | Outpatient (REF) | payer OTHER, SELFPAY ==
[2022-01-02 08:02] LABS: T4 Thyroxine 14.8 ug/dL (4.5-12.0); Thyroid Stimulating Hormone 0.33 uIU/mL (0.32-4.0)
== END 2022-01-02 06:07 | disposition home or self-care (01) ==
LOC: HO.LAB 06:06
PROVIDERS: PCP Internal Medicine Geriatric Medicine; Visit Provider Internal Medicine
DX: C73 Malignant neoplasm of thyroid gland (principal)
CPT/HCPCS: 36415; 84436; 84443

== ENCOUNTER → 2022-02-11 10:56 | Outpatient (BNVA) | payer OTHER, SELFPAY | PROVIDERS: PCP Internal Medicine Geriatric Medicine; Visit Provider Internal Medicine | DX: Z13.89 Encounter for screening for other disorder (principal) ==

== ENCOUNTER 2022-02-24 06:01 | Outpatient (REF) | payer OTHER, SELFPAY ==
[2022-02-24 08:37] LABS: T4 Thyroxine 13.3 ug/dL (4.5-12.0); Thyroid Stimulating Hormone 0.75 uIU/mL (0.32-4.0)
== END 2022-02-24 06:02 | disposition home or self-care (01) ==
LOC: HO.LAB 06:01
PROVIDERS: PCP Internal Medicine Geriatric Medicine; Visit Provider Internal Medicine
DX: C73 Malignant neoplasm of thyroid gland (principal)
CPT/HCPCS: 36415; 84436; 84443

== ENCOUNTER 2022-04-10 11:21 | Outpatient (REF) | payer OTHER, SELFPAY ==
[2022-04-10 12:17] LABS: Free T4 (Free Thyroxine) 1.62 ng/dL (0.71-1.85); Thyroid Stimulating Hormone 0.09 uIU/mL (0.32-4.0)
== END 2022-04-10 11:22 | disposition home or self-care (01) ==
LOC: HO.LAB 11:21
PROVIDERS: PCP Internal Medicine Geriatric Medicine; Visit Provider Internal Medicine
DX: C73 Malignant neoplasm of thyroid gland (principal)
CPT/HCPCS: 36415; 84439; 84443

== ENCOUNTER 2022-05-18 06:11 | Emergency (ER) | payer OTHER, SELFPAY ==
--- NOTE | ~2022-05-18 | US_ITS ---
EXAMINATION: US ABDOMEN LIMITED CLINICAL INFORMATION: Right upper quadrant pain and elevated LFTs.. COMPARISON: None TECHNIQUE: Real-time imaging of the right upper quadrant abdominal viscera. FINDINGS: PANCREAS: Head and body appear unremarkable. Tail not visualized. Pancreatic duct diameter within normal limits. LIVER: The liver is normal in size. The liver contour is normal. Parenchymal echogenicity is normal. No focal hepatic lesion identified. There is no intrahepatic biliary duct dilatation seen. GALLBLADDER: Mildly distended gallbladder, measuring 5.1 cm in diameter. No evidence of stones, sludge, polyps, wall thickening or pericholecystic fluid. Technologist reports positive sonographic Montalvo's sign. COMMON BILE DUCT: Normal in caliber measuring 0.8 cm in diameter. RIGHT KIDNEY: No hydronephrosis. No renal calculi or focal parenchymal lesions. The kidney measures 11.5 cm in maximum dimension. FREE FLUID: None. US/US abdomen limited IMPRESSION: Mildly distended gallbladder. Technologist reports positive sonographic Montalvo's sign. Mildly dilated common bile duct. No stone, gallbladder wall thickening, or pericholecystic fluid identified.
--- NOTE | ~2022-05-18 | CT_ITS ---
EXAMINATION: CT ABDOMEN AND PELVIS WITHOUT CONTRAST CLINICAL INFORMATION: Right upper quadrant abdominal pain and elevated LFT. COMPARISON: CT of the abdomen and pelvis done on 05/27/2021. TECHNIQUE: Multidetector volumetric imaging was performed from the superior aspect of the liver through the pubic symphysis. Sagittal and coronal reformatted images were obtained on the technologist's workstation. This CT examination was performed using dose optimization techniques as appropriate, variously including the following: *Automated exposure control *Adjustment of mA and/or kV according to patient size (this includes techniques or standardized protocols for targeted exams where dose is matched to indication/reason for exam; i.e. extremities or head) *Use of iterative reconstruction technique DLP: 733 mGy-cm FINDINGS: LUNG BASES: There is a 0.4 cm noncalcified right lower lobar lung nodule present (1:5). LIVER, GALLBLADDER, AND BILIARY TREE: The liver is normal in size, shape, and attenuation. No focal hepatic lesion or biliary ductal dilatation is present. The gallbladder is distended without evidence of any wall thickening or pericholecystic fluid or CT detectable gallstone, measures approximately 4.9 cm at its maximum transverse dimension (233:4). PANCREAS: The body and tail of the pancreas appear unremarkable. The head of the pancreas and uncinate process are not well evaluated on this nonenhanced study. There is soft tissue fullness present in the retroperitoneum inseparable from the head, may represent adjacent nonopacified bowel loops, suboptimally characterized on this study with no oral or intravenous contrast. SPLEEN: Unremarkable. ADRENAL GLANDS: Unremarkable. KIDNEYS AND URETERS: The kidneys are normal in size, shape, and attenuation. No hydronephrosis, hydroureter, or calculi seen. No perinephric stranding. BLADDER: Unremarkable. GASTROINTESTINAL TRACT: The small and large bowel are unremarkable. The appendix is nonvisualized, without any inflammatory changes around the cecum. Few shotty mesenteric lymph nodes are present around the ileocecal region. Postsurgical changes of gastric surgery. ABDOMINAL WALL: No significant hernia is appreciated. LYMPH NODES: Normal. VASCULAR: Unremarkable. PELVIC VISCERA: There is no pelvic mass present. No evidence of any free fluid and/or free air. OSSEOUS STRUCTURES: Unremarkable. CT/CT abdomen pelvis wo IV con IMPRESSION: 1. No CT evidence of any acute intra-abdominal and/or intrapelvic pathology is present. 2. Solitary 0.5 cm noncalcified right lower lung nodule. 3. Incidental note is also made of distended gallbladder without evidence of any gallbladder wall thickening or pericolonic fluid or CT detectable gallstones. The head of the pancreas is inseparable from the adjacent bowel loops, suboptimally evaluated on this noncontrast study. 5. Postsurgical changes of gastric surgery and few shotty lymph nodes at right lower quadrant of the abdomen near the ileocecal junction. 6. Nonvisualized appendix without any inflammatory changes around the cecum. According to the UPDATED 2017 Fleischner Society recommendations, the advised follow-up imaging for solid nodules < 6 mm is: LOW RISK PATIENT: No routine follow-up. HIGH RISK PATIENT: Optional CT at 12 months. Fleischner guidelines were followed.
[2022-05-18 06:27] VITALS: BP 159/83; PULSE 62; RESP 16; TEMP 36.1; O2SAT 95; BMI 38.7
[2022-05-18 06:38] LABS: Hematocrit 44.2 % (37.0-47.0); Hemoglobin 14.5 g/dl (12.0-16.0); Mean Corpuscular HGB Conc 32.8 g/dl (31.0-35.0); Mean Corpuscular Hemoglobin 29.4 pg (27.0-33.0); Mean Corpuscular Volume 89.5 fL (80.0-98.0); Platelet Count 192 X10*3/uL (160-400); Red Blood Count 4.94 X10*6/uL (4.20-5.50); Red Cell Distribution Width 13.2 % (11.0-16.0); White Blood Count 9.5 X10*3/uL (4.8-10.8)
[2022-05-18 07:09] LABS: Alanine Aminotransferase 52 U/L (0-31); Albumin Level 4.3 g/dL (3.5-5.0); Alkaline Phosphatase 111 U/L (39-117); Anion Gap 15 (12-20); Aspartate Amino Transferase 78 U/L (5-31); Bilirubin Direct 0.7 mg/dL (0.0-0.5); Bilirubin Total 1.2 mg/dL (0.0-1.0); Blood Urea Nitrogen 16 mg/dL (9-16); Calcium 9.1 mg/dL (8.4-10.2); Carbon Dioxide 26 mmol/L (22-29); Chloride 105 mmol/L (96-108); Creatinine Clr Calc Pharmacy 100.6; Estimated Glomerular Filt Rate > 60; Glucose Random 99 mg/dL (60-115); Lipase 55 U/L (8-78); Potassium 5.1 mmol/L (3.3-5.1); Sodium 141 mmol/L (135-145); Total Protein 7.2 g/dL (6.5-8.0)
--- NOTE | 2022-05-18 07:33 | ECG_ITS ---
Test Reason : CP Blood Pressure : / mmHG Vent. Rate : 055 BPM Atrial Rate : 055 BPM P-R Int : 142 ms QRS Dur : 096 ms QT Int : 430 ms P-R-T Axes : 028 -03 008 degrees QTc Int : 411 ms Sinus bradycardia Nonspecific T wave abnormality Abnormal ECG When compared with ECG of 17-NOV-2012 23:00, Heart rate has decreased Referred By: Generic ED Physician Electronically Signed By:KVNG ALARCON
--- NOTE | 2022-05-18 08:57 | ED.ABDPAIN ---
HPI - Abdominal Pain General Chief Complaint: Abdominal Pain Stated Complaint: abdominal pain near right rib cage Time Seen by Provider: 05/18/22 08:54 Source: patient Mode of arrival: ambulatory Limitations: no limitations History of Present Illness HPI narrative: 42-year-old female came in for evaluation of abdominal pain. Patient describes abdominal pain started since yesterday as intermittent right upper quadrant tenderness after eating breakfast yesterday, patient ate steak for dinner then the pain becoming more severe and more constant, pain is localized to the right upper quadrant area, associated with nausea and vomiting but no diarrhea or fever, no pain radiation, pain was described as severe 10/10, pain is aggravated by food. Patient had past Surgical history of sleeve gastrectomy in 2018 at [facility], and . No urinary tract symptoms no dysuria or frequency urination, last bowel movement was yesterday. Last she ate banana at 06:00 to take Tylenol for pain. Patient is breast feeding. Related Data Home Medications Medication Instructions Recorded Confirmed ipratropium 20 mcg-albuterol 100 1 puff inhalation QID 06/11/20 04/21/22 mcg/actuation mist for inhalation (Combivent Respimat) fluticasone propionate 50 1 spray intranasal DAILY PRN nasal 10/15/20 04/21/22 mcg/actuation nasal congestion spray,suspension (Flonase Allergy Relief) cyanocobalamin (vitamin B-12) 500 500 mcg PO DAILY 12/30/21 04/21/22 mcg tablet ergocalciferol (vitamin D2) 50 mcg 2,000 mcg PO 12/30/21 04/21/22 (2,000 unit) capsule vitamin with calcium 1 tab PO DAILY 12/30/21 04/21/22 no.72-iron 27 mg-folic acid 1 mg tablet (M-Renu Plus) Previous Rx's Medication Instructions Recorded nitrofurantoin 100 mg PO Q12H 7 days #14 caps 05/17/21 monohydrate/macrocrystals 100 mg capsule (Macrobid) phenazopyridine 200 mg tablet 200 mg PO TID PRN pain 6 doses #6 05/17/21 (Pyridium) tabs cyclobenzaprine 10 mg tablet 10 mg PO TID PRN muscle spasm #14 05/27/21 tabs ibuprofen 600 mg tablet 600 mg PO Q6H PRN pain #30 tabs 05/27/21 lidocaine 4 % topical patch 1 patch topical DAILY PRN pain #10 05/27/21 ea prednisone 20 mg tablet 20 mg PO DAILY 5 days #5 tabs 05/27/21 levothyroxine 175 mcg tablet 175 mcg PO DAILY 30 days #30 tabs 04/21/22 Allergies Allergy/AdvReac Type Severity Reaction Status Date / Time drospirenone [From SHAQ 28] Allergy Unknown SWELLING Verified 04/21/22 10:02 ethinyl estradiol Allergy Unknown SWELLING Verified 04/21/22 10:02 [From SHAQ 28] naproxen [From NAPROSYN] Allergy Unknown SWELLING Verified 04/21/22 10:02 sulfamethoxazole Allergy Unknown RASH Verified 04/21/22 10:02 [From BACTRIM] trimethoprim [From BACTRIM] Allergy Unknown RASH Verified 04/21/22 10:02 adhesive tape Allergy Unknown Unknown Uncoded 04/21/22 10:02 uti antibiotic Allergy Unknown Unknown Uncoded 04/21/22 10:02 Review of Systems Review of Systems All other systems are reviewed and are negative Constitutional: Reports as per HPI and Reports no additional constitutional complaints Eyes: Reports as per HPI and Reports no additional eye complaints Reports system reviewed and no additional complaints, except as documented Cardiovascular: Reports as per HPI and Reports no additional cardiovascular complaints Respiratory: Reports as per HPI and Reports no additional respiratory complaints Gastrointestinal: Reports as per HPI and Reports no additional gastrointestinal complaints Genitourinary: Reports no additional female genitourinary complaints Musculoskeletal: Reports no additional musculoskeletal complaints Skin/Breast: Reports system reviewed and no additional complaints, except as docu Psychiatric: Reports no additional psychiatric complaints Endocrine: Reports no additional endocrine complaints Hematologic/Lymphatic: Reports no additional hematologic/lymphatic complaints Allergic/Immunologic: Reports no additional allergic/immunologic complaints Reports system reviewed and no additional complaints, except as documented and Reports Abnormal speech present FORMERLY [facility] Past Medical History Medical History Hypothyroidism Thyroid cancer Vitamin D deficiency Surgical History Hx of dilation and curettage Hx of thyroidectomy Family History Family History Father Asthma Hypertension Mother Hypertension Social History Social History Alcohol intake: current Alcohol intake frequency: holidays/special occasions only Patient Tobacco Use Status: Never used Tobacco Advance Directives: No Advance Directives Information Provided: Yes Physical Exam ED Vital Signs: Vital Signs - 24 hr 05/18/22 06:27 05/18/22 10:38 Temperature 97 F 98.7 F Pulse Rate 62 54 Respiratory Rate 16 Blood Pressure 159/83 H 127/71 Pulse Oximetry 95 98 Oxygen Delivery Method Room Air Room Air BMI result Body Mass Index 38.7 Vital signs have been reviewed as appeared to be correct. Blood pressure normal. Heart rate normal. Respiration rate normal. Temperature normal. Oxygen saturation normal. Appearance: Alert. Oriented X3. No acute distress. Head: Normal external exam. Normocephalic. Atraumatic. No Steen signs noted. No raccoon eyes noted Eyes: PERRLA. EOMI. Conjunctiva and sclera normal. Eyelids normal. ENT: TM's Normal. Pharynx normal. Uvula midline. Moist mucous membranes. No trismus noted. No drooling noted. No muffled voice noted. Neck: Normal inspection. Neck supple. FROM. No adenopathy. Thyroid Normal. No meningeal signs. No neck mass noted. CVS: Normal heart rate and rhythm. Heart sound normal. No murmurs noted. Pulses normal throughout. Respiratory: No respiratory distress. Painless inspiration. Breath sounds normal. No wheezes/rales/rhonchi noted. Chest nontender. No accessory muscle usage noted or decreased air movement noted. Abdomen: Soft, obese, right upper quadrant tenderness, no rebound tenderness, no guarding. Bowel sounds normal in all 4 quadrants. No distention noted. No organomegaly noted. No visible injury noted. Back: No CVA tenderness. Full range of motion noted. Skin: Skin warm and dry. Normal skin color. Normal skin turgor. No rashes/lesions/lacerations noted. Extremities: No lower extremity edema. Extremities exhibit normal range of motion. Extremities nontender. Neuro: Oriented X 3. Cranial nerve exam: II-XII are grossly intact No motor deficit. No sensory deficit. Reflexes normal. Course Course Course Narrative: 42-year-old female status post sleeve gastrectomy bypass surgery 5 years ago, presented with upper abdominal pain after eating steak yesterday, because the elevation of LFTs and liver enzymes patient had an ultrasound which showed more less no evidence of cholelithiasis or cholecystitis. Patient feels better after was given Pepcid and Maalox, able to tolerate p.o. intake, will start the patient on Prilosec, patient also was instructed to start with clear not advance gradually and slowly as tolerated. Patient was instructed to return to the ED for worsening of the abdominal pain. MDM - Abdominal Pain Medical Records Attestation: I reviewed the patient's medical records. Lab Data Attestation: I reviewed the patient's lab results. Result diagrams: 05/18/22 06:34 05/18/22 06:34 Labs: Lab Results 05/18/22 05/18/22 05/18/22 Range/Units 06:34 06:34 08:53 WBC 9.5 (4.8-10.8) X10*3/uL RBC 4.94 (4.20-5.50) X10*6/uL Hgb 14.5 (12.0-16.0) g/dl Hct 44.2 (37.0-47.0) % MCV 89.5 (80.0-98.0) fL MCH 29.4 (27.0-33.0) pg MCHC 32.8 (31.0-35.0) g/dl RDW 13.2 (11.0-16.0) % Plt Count 192 (160-400) X10*3/uL MPV 12.0 (9.4-12.3) fL Absolute Nucleated RBC 0.000 (0.0-0.012) X10*3/uL Nucleated RBC % (auto) 0.0 (0.0-0.2) /100WBC Sodium 141 (135-145) mmol/L Potassium 5.1 D (3.3-5.1) mmol/L Chloride 105 (96-108) mmol/L Carbon Dioxide 26 (22-29) mmol/L Anion Gap 15 (12-20) BUN 16 (9-16) mg/dL Creatinine 0.75 (0.5-1.4) mg/dL Estim Creat Clear Calc 100.6 Estimated GFR > 60 Random Glucose 99 (60-115) mg/dL Calcium 9.1 D (8.4-10.2) mg/dL Total Bilirubin 1.2 H (0.0-1.0) mg/dL Direct Bilirubin 0.7 H (0.0-0.5) mg/dL AST 78 H (5-31) U/L ALT 52 H (0-31) U/L Alkaline Phosphatase 111 (39-117) U/L Total Protein 7.2 (6.5-8.0) g/dL Albumin 4.3 (3.5-5.0) g/dL Lipase 55 (8-78) U/L Urine Color Dark Yellow Urine Appearance Clear Urine pH 5.5 (5.0-9.0) Ur Specific [place] >= 1.030 H (1.005-1.025) Urine Protein Trace (Neg-Trace) mg/dL Urine Glucose (UA) Negative (Negative) mg/dL Urine Ketones Negative (Negative) mg/dL Urine Blood Moderate (2+) H (Negative) Urine Nitrite Negative (Negative) Ur Leukocyte Esterase Trace H (Negative) Urine RBC 11-20 H (0-2) /HPF Urine WBC 0-5 (0-5) /HPF Ur Squamous Epith Cells 0-2 (0-2) /HPF Urine Bacteria None Seen (None Seen) Hyaline Casts 0-2 (0-2) /LPF Urine Test (NEGATIVE) 05/18/22 Range/Units 08:53 WBC (4.8-10.8) X10*3/uL RBC (4.20-5.50) X10*6/uL Hgb (12.0-16.0) g/dl Hct (37.0-47.0) % MCV (80.0-98.0) fL MCH (27.0-33.0) pg MCHC (31.0-35.0) g/dl RDW (11.0-16.0) % Plt Count (160-400) X10*3/uL MPV (9.4-12.3) fL Absolute Nucleated RBC (0.0-0.012) X10*3/uL Nucleated RBC % (auto) (0.0-0.2) /100WBC Sodium (135-145) mmol/L Potassium (3.3-5.1) mmol/L Chloride (96-108) mmol/L Carbon Dioxide (22-29) mmol/L Anion Gap (12-20) BUN (9-16) mg/dL Creatinine (0.5-1.4) mg/dL Estim Creat Clear Calc Estimated GFR Random Glucose (60-115) mg/dL Calcium (8.4-10.2) mg/dL Total Bilirubin (0.0-1.0) mg/dL Direct Bilirubin (0.0-0.5) mg/dL AST (5-31) U/L ALT (0-31) U/L Alkaline Phosphatase (39-117) U/L Total Protein (6.5-8.0) g/dL Albumin (3.5-5.0) g/dL Lipase (8-78) U/L Urine Color Urine Appearance Urine pH (5.0-9.0) Ur Specific [place] (1.005-1.025) Urine Protein (Neg-Trace) mg/dL Urine Glucose (UA) (Negative) mg/dL Urine Ketones (Negative) mg/dL Urine Blood (Negative) Urine Nitrite (Negative) Ur Leukocyte Esterase (Negative) Urine RBC (0-2) /HPF Urine WBC (0-5) /HPF Ur Squamous Epith Cells (0-2) /HPF Urine Bacteria (None Seen) Hyaline Casts (0-2) /LPF Urine Test NEGATIVE (NEGATIVE) Imaging Data CT scan - abdomen: Attestation: I personally reviewed and interpreted this imaging study as follows: Radiologist's impression: 1. No CT evidence of any acute intra-abdominal and/or intrapelvic pathology is present. 2. Solitary 0.5 cm noncalcified right lower lung nodule. 3. Incidental note is also made of distended gallbladder without evidence of any gallbladder wall thickening or pericolonic fluid or CT detectable gallstones. The head of the pancreas is inseparable from the adjacent bowel loops, suboptimally evaluated on this noncontrast study. 5. Postsurgical changes of gastric surgery and few shotty lymph nodes at right lower quadrant of the abdomen near the ileocecal junction. 6. Nonvisualized appendix without any inflammatory changes around the cecum. Abdominal ultrasound: Attestation: I personally reviewed and interpreted this imaging study as follows: Radiologist's impression: PANCREAS: Head and body appear unremarkable. Tail not visualized. Pancreatic duct diameter within normal limits. LIVER: The liver is normal in size. The liver contour is normal. Parenchymal echogenicity is normal. No focal hepatic lesion identified. There is no intrahepatic biliary duct dilatation seen. GALLBLADDER: Mildly distended gallbladder, measuring 5.1 cm in diameter. No evidence of stones, sludge, polyps, wall thickening or pericholecystic fluid. Technologist reports positive sonographic Montalvo's sign. COMMON BILE DUCT: Normal in caliber measuring 0.8 cm in diameter. RIGHT KIDNEY: No hydronephrosis. No renal calculi or focal parenchymal lesions. The kidney measures 11.5 cm in maximum dimension. FREE FLUID: None. Discharge Plan Discharge Clinical Impression: Abdominal pain, Elevated liver function tests Clinical Impression: (Ruled Out): Constipation Patient Disposition: Home, Self-Care Instructions: Acute Abdominal Pain (ED) Additional Instructions: Start today was clear diet and avoid fried and greasy food start to advance your diet from tomorrow advanced gradually and slowly as you tolerated. Prescriptions: No Action cyclobenzaprine 10 mg tablet 10 mg PO TID PRN (Reason: muscle spasm) Qty: 14 0RF lidocaine 4 % adhesive patch,medicated 1 patch topical DAILY PRN (Reason: pain) Qty: 10 0RF Rx Instructions: may leave on for up to 12 hrs prednisone 20 mg tablet 20 mg PO DAILY 5 Days Qty: 5 0RF ibuprofen 600 mg tablet 600 mg PO Q6H PRN (Reason: pain) Qty: 30 0RF phenazopyridine [Pyridium] 200 mg tablet 200 mg PO TID PRN (Reason: pain) Qty: 6 0RF nitrofurantoin monohyd/m-cryst [Macrobid] 100 mg capsule 100 mg PO Q12H 7 Days Qty: 14 0RF Rx Instructions: must administer with a meal/food Combivent Respimat 20-100 mcg/actuation mist 1 puff inhalation QID Rx Instructions: space evenly during waking hours fluticasone propionate [Flonase Allergy Relief] 50 mcg/actuation spray,suspension 1 spray intranasal DAILY PRN (Reason: nasal congestion) Rx Instructions: administer into each nostril levothyroxine 175 mcg tablet 175 mcg PO DAILY 30 Days Qty: 30 4RF M-Renu Plus 27 mg iron- 1 mg tablet 1 tab PO DAILY cyanocobalamin (vitamin B-12) 500 mcg tablet 500 mcg PO DAILY ergocalciferol (vitamin D2) 50 mcg (2,000 unit) capsule 2,000 mcg PO Referrals: Physician,Unknown J [Primary Care Provider] -
[2022-05-18 08:59] LABS: UPreg QC Valid YES; Urine Pregnancy NEGATIVE (NEGATIVE)
[2022-05-18 09:00] LABS: Appearance Urine Clear; Color Urine Dark Yellow; Glucose Urine UA Negative (Negative); Leukocyte Esterase Urine Trace (Negative); Nitrite Urine Negative (Negative); PH 5.5 (5.0-9.0); Specific Gravity - Urine >= 1.030 (1.005-1.025); Urine Blood Moderate (2+) (Negative); Urine Ketones Negative (Negative); Urine Protein Trace mg/dL (Neg-Trace)
[2022-05-18 09:04] LABS: Bacteria Urine None Seen (None Seen); Hyaline Casts Urine 0-2 /LPF (0-2); Squamous Epithelial Cell Urine 0-2 /HPF (0-2); WBC Urine 0-5 /HPF (0-5)
[2022-05-18] MEDS: ondansetron HCL 4 MG/2 ML VIAL IVPUSH (09:04)
[2022-05-18] MEDS: Morphine Sulfate 2 MG/ML CARTRIDGE 1 MG IVPUSH (09:04)
[2022-05-18] MEDS: Piperacillin Sodium/Tazobactam 3.375 GM in 0.9 % Sodium Chloride 50 ML IV (09:07)
[2022-05-18 10:38] VITALS: BP 127/71; PULSE 54; TEMP 37.1; O2SAT 98
[2022-05-18] MEDS: Famotidine/PF 20 MG/2 ML VIAL IVPUSH (10:52)
[2022-05-18] MEDS: Magnesium Hydrox/Alum Hydrox 30 ML ORAL.SUSP PO (10:53)
--- NOTE | 2022-05-18 11:11 | PC.NURSE ---
nad, states epigastric pain still present, medicated as ordered, alert, aware of care plan
== END 2022-05-18 11:44 | disposition home or self-care (01) ==
PROVIDERS: Emergency Provider Emergency Medicine
DX: R07.81 Pleurodynia (principal); R10.11 Right upper quadrant pain; R79.89 Other specified abnormal findings of blood chemistry; Z79.899 Other long term (current) drug therapy
CPT/HCPCS: 36415; 74176; 76705; 80053; 81001; 81025; 82248; 83690; 85027; 93005; 99284; J2270; J2405; J2543

== ENCOUNTER 2022-09-06 00:47 | Emergency (ER) | payer OTHER, SELFPAY ==
--- NOTE | 2022-09-06 | ECG_ITS ---
Test Reason : abd pain Blood Pressure : / mmHG Vent. Rate : 065 BPM Atrial Rate : 065 BPM P-R Int : 140 ms QRS Dur : 100 ms QT Int : 404 ms P-R-T Axes : 039 002 021 degrees QTc Int : 420 ms Normal sinus rhythm Nonspecific T wave abnormality Abnormal ECG When compared with ECG of 18-MAY-2022 07:38, Nonspecific T wave abnormality, worse in Lateral leads Referred By: Generic ED Physician Electronically Signed By:KATHRIN BERRIOS
--- NOTE | ~2022-09-06 | US_ITS ---
EXAMINATION: US ABDOMEN LIMITED CLINICAL INFORMATION: Right upper quadrant pain. Distended gallbladder. COMPARISON: CT scan of the abdomen and pelvis dated 05/18/2022. TECHNIQUE: Real-time imaging of the right upper quadrant abdominal viscera. FINDINGS: GALLBLADDER: The gallbladder is hydropic, measuring 5.2 cm transversely. No evidence of stones, sludge, polyps, sonographic [place] sign or pericholecystic fluid. Gallbladder wall thickness is borderline normal at 0.3 cm. COMMON BILE DUCT: Normal in caliber measuring 0.4 cm in diameter. FREE FLUID: None. OTHER: The pancreas, liver, and right kidney were not specifically evaluated. Portions of the liver and right kidney are included and are grossly unremarkable. US/US abdomen limited IMPRESSION: 1. Hydropic gallbladder with borderline normal wall thickness. No evidence of cholelithiasis or other signs of acute cholecystitis. Close clinical correlation and follow-up as clinically appropriate is recommended. 2. No evidence of biliary obstruction.
[2022-09-06 00:58] VITALS: BP 156/72; PULSE 67; RESP 16; TEMP 36.2; O2SAT 99; BMI 42.5
[2022-09-06 01:42] LABS: MANUAL DIFF FLAG NO
[2022-09-06 01:43] LABS: Basophils Absolute Auto 0.1 X10*3/uL (0.0-0.2); Basophils Percent Auto 0.5 % (0-2); Eosinophils Absolute Auto 0.1 X10*3/uL (0.0-0.4); Imm Gran Abs Auto 0.03 X10*3/uL (0.00-0.03); Imm Gran Pct Auto 0.3 % (0.0-0.4); Lymphocytes Absolute Auto 1.9 X10*3/uL (1.2-4.9); Lymphocytes Percent Auto 18.4 % (20-40); Mean Corpuscular HGB Conc 32.6 g/dl (31.0-35.0); Mean Corpuscular Hemoglobin 29.3 pg (27.0-33.0); Mean Platelet Volume 11.9 fL (9.4-12.3); Monocytes Percent Auto 9.9 % (2-11); Neutrophils Absolute Auto 7.3 x10*3/uL (2.0-8.3); Neutrophils Percent Auto 69.9 % (45-73); Platelet Count 184 X10*3/uL (160-400); Red Blood Count 4.78 X10*6/uL (4.20-5.50); Red Cell Distribution Width 16.3 % (11.0-16.0); White Blood Count 10.5 X10*3/uL (4.8-10.8)
[2022-09-06 02:02] LABS: Alanine Aminotransferase 19 U/L (0-31); Albumin Level 4.2 g/dL (3.5-5.0); Alkaline Phosphatase 74 U/L (39-117); Anion Gap 12 (12-20); Aspartate Amino Transferase 26 U/L (5-31); Bilirubin Direct 0.4 mg/dL (0.0-0.5); Blood Urea Nitrogen 15 mg/dL (9-16); Calcium 8.5 mg/dL (8.4-10.2); Carbon Dioxide 26 mmol/L (22-29); Chloride 106 mmol/L (96-108); Creatinine Clr Calc Pharmacy 104.7; Estimated Glomerular Filt Rate > 60; Glucose Random 111 mg/dL (60-115); Potassium 4.1 mmol/L (3.3-5.1); Sodium 140 mmol/L (135-145); Total Protein 6.8 g/dL (6.5-8.0)
[2022-09-06 02:06] LABS: Troponin-I High Sensitivity < 3.5 ng/L (<3.5-17.0)
[2022-09-06 03:22] VITALS: BP 142/87; PULSE 72; RESP 18; TEMP 36.9; O2SAT 100
--- NOTE | 2022-09-06 04:20 | ED.ABDPAIN ---
HPI - Abdominal Pain General Chief Complaint: Abdominal Pain Stated Complaint: gallbladder pain Time Seen by Provider: 09/06/22 04:20 Source: patient Mode of arrival: ambulatory Limitations: no limitations History of Present Illness HPI narrative: Patient has recurrent right upper quadrant pain last episode was in 05/[address] scan and ultrasound which showed distended gallbladder without any stones comes back again for the pain started just prior to arrival at 23:00 started with nausea vomited 3 times patient had dinner at 17:00 and she woke up prior to arrival with pain and nausea vomiting no urinary complaints afebrile no urinary complaints Related Data Home Medications Medication Instructions Recorded Confirmed ipratropium 20 mcg-albuterol 100 1 puff inhalation QID 06/11/20 04/21/22 mcg/actuation mist for inhalation (Combivent Respimat) fluticasone propionate 50 1 spray intranasal DAILY PRN nasal 10/15/20 04/21/22 mcg/actuation nasal congestion spray,suspension (Flonase Allergy Relief) cyanocobalamin (vitamin B-12) 500 500 mcg PO DAILY 12/30/21 04/21/22 mcg tablet ergocalciferol (vitamin D2) 50 mcg 2,000 mcg PO 12/30/21 04/21/22 (2,000 unit) capsule vitamin with calcium 1 tab PO DAILY 12/30/21 04/21/22 no.72-iron 27 mg-folic acid 1 mg tablet (M- Plus) Previous Rx's Medication Instructions Recorded nitrofurantoin 100 mg PO Q12H 7 days #14 caps 05/17/21 monohydrate/macrocrystals 100 mg capsule (Macrobid) phenazopyridine 200 mg tablet 200 mg PO TID PRN pain 6 doses #6 05/17/21 (Pyridium) tabs cyclobenzaprine 10 mg tablet 10 mg PO TID PRN muscle spasm #14 05/27/21 tabs ibuprofen 600 mg tablet 600 mg PO Q6H PRN pain #30 tabs 05/27/21 lidocaine 4 % topical patch 1 patch topical DAILY PRN pain #10 05/27/21 ea prednisone 20 mg tablet 20 mg PO DAILY 5 days #5 tabs 05/27/21 levothyroxine 175 mcg tablet 175 mcg PO DAILY 30 days #30 tabs 04/21/22 ondansetron 4 mg disintegrating 4 mg PO Q6-8H PRN nausea and 09/06/22 tablet vomiting #14 tabs oxycodone 5 mg tablet 5 mg PO Q6H PRN pain #20 tabs 09/06/22 pantoprazole 40 mg tablet,delayed 40 mg PO DAILY #30 tabs 09/06/22 release (Protonix) Allergies Allergy/AdvReac Type Severity Reaction Status Date / Time drospirenone [From SHAQ 28] Allergy Unknown SWELLING Verified 09/06/22 01:02 ethinyl estradiol Allergy Unknown SWELLING Verified 09/06/22 01:02 [From SHAQ 28] naproxen [From NAPROSYN] Allergy Unknown SWELLING Verified 09/06/22 01:02 sulfamethoxazole Allergy Unknown RASH Verified 09/06/22 01:02 [From BACTRIM] trimethoprim [From BACTRIM] Allergy Unknown RASH Verified 09/06/22 01:02 adhesive tape Allergy Unknown Unknown Uncoded 09/06/22 01:02 uti antibiotic Allergy Unknown Unknown Uncoded 09/06/22 01:02 Review of Systems Review of Systems Yes all other systems are reviewed and are negative [facility] Past Medical History Medical History Hypothyroidism Thyroid cancer Vitamin D deficiency Surgical History Hx of dilation and curettage Hx of thyroidectomy Family History Family History Father Asthma Hypertension Mother Hypertension Social History Social History Alcohol intake: current Alcohol intake frequency: holidays/special occasions only Patient Tobacco Use Status: Never used Tobacco Smoked in Last 30 Days: No Advance Directives: No Advance Directives Information Provided: Yes Patient : No Physical Exam ED Vital Signs: Vital Signs - 24 hr 09/06/22 00:58 09/06/22 03:22 09/06/22 05:03 Temperature 97.2 F 98.5 F Pulse Rate 67 72 Respiratory Rate 16 18 18 Blood Pressure 156/72 H 142/87 H Pulse Oximetry 99 100 Oxygen Delivery Method Room Air Room Air 09/06/22 06:15 Temperature Pulse Rate 75 Respiratory Rate 18 Blood Pressure 140/94 H Pulse Oximetry 98 Oxygen Delivery Method Room Air BMI result Body Mass Index 42.5 Appearance: Alert. Oriented X3. No acute distress. Eyes: PERRLA, No Nystagmus ENT: Pharynx normal. Oral Mucosa moist Neck: Normal inspection. Neck supple. CVS: Normal heart rate and rhythm. Pulses normal. Respiratory: No respiratory distress. Equal air entry bilateral, no wheezing/rales/rhonchi Abdomen: Soft tenderness right upper quadrant with guarding no rebound tenderness Bowel sounds are present, no mass palpable, no CVA tenderness Skin: Skin warm and dry. Normal skin color. Normal skin turgor. Extremities: No lower extremity edema. No calf tenderness Neuro: Oriented X 3. No motor deficit. Medical Decision Making Medical Decision Making [facility] Narrative: Patient with recurrent right upper quadrant pain with distended gallbladder bedside ultrasound done which showed again distended gallbladder no obvious gallstone or gallbladder wall thickening was noticed. Patient LFTs are normal. Will get official ultrasound to see CBD dilatation/sludge if negative patient may need HIDA scan as outpatient Lab Data [facility] Lab Attestation statement: I reviewed the patient's lab results. Result Diagrams: 09/06/22 01:19 09/06/22 01:19 Labs: Lab Results 09/06/22 09/06/22 09/06/22 Range/Units 01:19 01:19 01:19 WBC 10.5 (4.8-10.8) X10*3/uL RBC 4.78 (4.20-5.50) X10*6/uL Hgb 14.0 (12.0-16.0) g/dl Hct 43.0 (37.0-47.0) % MCV 90.0 (80.0-98.0) fL MCH 29.3 (27.0-33.0) pg MCHC 32.6 (31.0-35.0) g/dl RDW 16.3 H (11.0-16.0) % Plt Count 184 (160-400) X10*3/uL MPV 11.9 (9.4-12.3) fL Immature Gran % (Auto) 0.3 (0.0-0.4) % Neut % (Auto) 69.9 (45-73) % Lymph % (Auto) 18.4 L (20-40) % [place] % (Auto) 9.9 (2-11) % Eos % (Auto) 1.0 (0-4) % Baso % (Auto) 0.5 (0-2) % Lymph # (Auto) 1.9 (1.2-4.9) X10*3/uL [place] # (Auto) 1.0 (0.1-1.2) X10*3/uL Eos # (Auto) 0.1 (0.0-0.4) X10*3/uL Baso # (Auto) 0.1 (0.0-0.2) X10*3/uL Abs Immat Gran (auto) 0.03 (0.00-0.03) X10*3/uL Absolute Neuts (auto) 7.3 (2.0-8.3) x10*3/uL Absolute Nucleated RBC 0.000 (0.0-0.012) X10*3/uL Nucleated RBC % (auto) 0.0 (0.0-0.2) /100WBC Sodium 140 (135-145) mmol/L Potassium 4.1 (3.3-5.1) mmol/L Chloride 106 (96-108) mmol/L Carbon Dioxide 26 (22-29) mmol/L Anion Gap 12 (12-20) BUN 15 (9-16) mg/dL Creatinine 0.76 (0.5-1.4) mg/dL Estim Creat Clear Calc 104.7 Estimated GFR > 60 Random Glucose 111 (60-115) mg/dL Calcium 8.5 D (8.4-10.2) mg/dL Total Bilirubin 1.0 (0.0-1.0) mg/dL Direct Bilirubin 0.4 (0.0-0.5) mg/dL AST 26 (5-31) U/L ALT 19 (0-31) U/L Alkaline Phosphatase 74 (39-117) U/L Troponin I High Sens < 3.5 (<3.5-17.0) ng/L Total Protein 6.8 (6.5-8.0) g/dL Albumin 4.2 (3.5-5.0) g/dL Urine Color Urine Appearance Urine pH (5.0-9.0) Ur Specific [place] (1.005-1.025) Urine Protein (Neg-Trace) mg/dL Urine Glucose (UA) (Negative) mg/dL Urine Ketones (Negative) mg/dL Urine Blood (Negative) Urine Nitrite (Negative) Ur Leukocyte Esterase (Negative) Urine RBC (0-2) /HPF Urine WBC (0-5) /HPF Ur Squamous Epith Cells (0-2) /HPF Urine Bacteria (None Seen) Hyaline Casts (0-2) /LPF 09/06/22 Range/Units 06:25 WBC (4.8-10.8) X10*3/uL RBC (4.20-5.50) X10*6/uL Hgb (12.0-16.0) g/dl Hct (37.0-47.0) % MCV (80.0-98.0) fL MCH (27.0-33.0) pg MCHC (31.0-35.0) g/dl RDW (11.0-16.0) % Plt Count (160-400) X10*3/uL MPV (9.4-12.3) fL Immature Gran % (Auto) (0.0-0.4) % Neut % (Auto) (45-73) % Lymph % (Auto) (20-40) % [place] % (Auto) (2-11) % Eos % (Auto) (0-4) % Baso % (Auto) (0-2) % Lymph # (Auto) (1.2-4.9) X10*3/uL [place] # (Auto) (0.1-1.2) X10*3/uL Eos # (Auto) (0.0-0.4) X10*3/uL Baso # (Auto) (0.0-0.2) X10*3/uL Abs Immat Gran (auto) (0.00-0.03) X10*3/uL Absolute Neuts (auto) (2.0-8.3) x10*3/uL Absolute Nucleated RBC (0.0-0.012) X10*3/uL Nucleated RBC % (auto) (0.0-0.2) /100WBC Sodium (135-145) mmol/L Potassium (3.3-5.1) mmol/L Chloride (96-108) mmol/L Carbon Dioxide (22-29) mmol/L Anion Gap (12-20) BUN (9-16) mg/dL Creatinine (0.5-1.4) mg/dL Estim Creat Clear Calc Estimated GFR Random Glucose (60-115) mg/dL Calcium (8.4-10.2) mg/dL Total Bilirubin (0.0-1.0) mg/dL Direct Bilirubin (0.0-0.5) mg/dL AST (5-31) U/L ALT (0-31) U/L Alkaline Phosphatase (39-117) U/L Troponin I High Sens (<3.5-17.0) ng/L Total Protein (6.5-8.0) g/dL Albumin (3.5-5.0) g/dL Urine Color Dark Yellow Urine Appearance Clear Urine pH 5.5 (5.0-9.0) Ur Specific [place] 1.025 (1.005-1.025) Urine Protein Negative (Neg-Trace) mg/dL Urine Glucose (UA) Negative (Negative) mg/dL Urine Ketones Negative (Negative) mg/dL Urine Blood Small (1+) H (Negative) Urine Nitrite Negative (Negative) Ur Leukocyte Esterase Negative (Negative) Urine RBC 0-2 (0-2) /HPF Urine WBC 0-5 (0-5) /HPF Ur Squamous Epith Cells 3-5 (0-2) /HPF Urine Bacteria None Seen (None Seen) Hyaline Casts 0-2 (0-2) /LPF Medications Administered Discontinued Medications Generic Name Dose Route Start Last Admin Trade Name Freq PRN Reason Stop Dose Admin Sodium Chloride 1,000 mls @ 999 mls/hr 09/06/22 04:29 09/06/22 06:15 Ns IV 09/06/22 05:29 Infused .Q1H1M ONE Infusion Morphine Sulfate 4 mg 09/06/22 04:29 09/06/22 05:03 Morphine Sulfate 4 Mg/Ml Cartridge IVPUSH 09/06/22 04:30 4 mg ONCE ONE Administration Protocol Ondansetron HCl 4 mg 09/06/22 04:29 09/06/22 05:03 Ondansetron Hcl 4 Mg/2 Ml Vial IVPUSH 09/06/22 04:30 4 mg ONCE ONE Administration Discharge Plan Discharge Clinical Impression: Abdominal pain Patient Disposition: Still a Patient Instructions: Abdominal Pain (ED) Additional Instructions: Cause of abdominal pain is not very clear you may need further evaluation including HIDA scan Avoid fried food and follow with supervising librarian Pain Medication as prescribed Prescriptions: New oxycodone 5 mg tablet 5 mg PO Q6H PRN (Reason: pain) Qty: 20 0RF Rx Instructions: Partial Fill upon patient request. ondansetron 4 mg tablet,disintegrating 4 mg PO Q6-8H PRN (Reason: nausea and vomiting) Qty: 14 0RF pantoprazole [Protonix] 40 mg tablet,delayed release (DR/EC) 40 mg PO DAILY Qty: 30 0RF No Action cyclobenzaprine 10 mg tablet 10 mg PO TID PRN (Reason: muscle spasm) Qty: 14 0RF lidocaine 4 % adhesive patch,medicated 1 patch topical DAILY PRN (Reason: pain) Qty: 10 0RF Rx Instructions: may leave on for up to 12 hrs prednisone 20 mg tablet 20 mg PO DAILY 5 Days Qty: 5 0RF ibuprofen 600 mg tablet 600 mg PO Q6H PRN (Reason: pain) Qty: 30 0RF phenazopyridine [Pyridium] 200 mg tablet 200 mg PO TID PRN (Reason: pain) Qty: 6 0RF nitrofurantoin monohyd/m-cryst [Macrobid] 100 mg capsule 100 mg PO Q12H 7 Days Qty: 14 0RF Rx Instructions: must administer with a meal/food Combivent Respimat 20-100 mcg/actuation mist 1 puff inhalation QID Rx Instructions: space evenly during waking hours fluticasone propionate [Flonase Allergy Relief] 50 mcg/actuation spray,suspension 1 spray intranasal DAILY PRN (Reason: nasal congestion) Rx Instructions: administer into each nostril levothyroxine 175 mcg tablet 175 mcg PO DAILY 30 Days Qty: 30 4RF M-Renu Plus 27 mg iron- 1 mg tablet 1 tab PO DAILY cyanocobalamin (vitamin B-12) 500 mcg tablet 500 mcg PO DAILY ergocalciferol (vitamin D2) 50 mcg (2,000 unit) capsule 2,000 mcg PO
[2022-09-06] MEDS: 0.9 % Sodium Chloride 1,000 ML 999 ML IV (05:00)
[2022-09-06 05:03] VITALS: RESP 18
[2022-09-06] MEDS: Morphine Sulfate 4 MG/ML CARTRIDGE IVPUSH (05:03)
[2022-09-06] MEDS: ondansetron HCL 4 MG/2 ML VIAL IVPUSH (05:03)
[2022-09-06 06:15] VITALS: BP 140/94; PULSE 75; RESP 18; O2SAT 98
[2022-09-06 06:31] LABS: Appearance Urine Clear; Color Urine Dark Yellow; Glucose Urine UA Negative (Negative); Leukocyte Esterase Urine Negative (Negative); Nitrite Urine Negative (Negative); PH 5.5 (5.0-9.0); Specific Gravity - Urine 1.025 (1.005-1.025); UMIC TRIGGER UACC YES; Urine Blood Small (1+) (Negative); Urine Ketones Negative (Negative); Urine Protein Negative (Neg-Trace)
[2022-09-06 06:48] LABS: Bacteria Urine None Seen (None Seen); Hyaline Casts Urine 0-2 /LPF (0-2); RBC Urine 0-2 /HPF (0-2); WBC Urine 0-5 /HPF (0-5)
[2022-09-06 08:07] VITALS: BP 121/63; PULSE 68; RESP 18; TEMP 37; O2SAT 97
[2022-09-06 09:12] VITALS: BP 124/75; PULSE 69; RESP 18; O2SAT 98
--- NOTE | 2022-09-06 09:13 | PC.NURSE ---
pt is currently resting with her eyes shut but easily arousble, skin appropriate for ethnicity, respirations even and unlabored, pt denies pain/nausea at this time.
== END 2022-09-06 09:35 | disposition still patient (30) ==
PROVIDERS: Internal Medicine; Emergency Provider Emergency Medicine; PCP Internal Medicine Geriatric Medicine
DX: K82.1 Hydrops of gallbladder (principal); R10.11 Right upper quadrant pain
CPT/HCPCS: 36415; 76705; 80048; 80076; 81001; 84484; 85025; 93005; 96361; 96374; 96375; 99284; 99285; J2270; J2405

== ENCOUNTER 2022-09-29 19:55 | Emergency (ER) | payer OTHER, SELFPAY ==
[2022-09-29 20:39] VITALS: BP 136/81; PULSE 75; RESP 20; TEMP 36.3; O2SAT 98; BMI 42.9
--- NOTE | 2022-09-29 20:45 | ED.ABDPAIN ---
HPI - Abdominal Pain General Chief Complaint: Abdominal Pain <INDIGO Dyson - Last Filed: 09/29/22 20:47> Stated Complaint: Abdominal pain <INDIGO Dyson - Last Filed: 09/29/22 20:47> Time Seen by Provider: 09/29/22 21:10 <INDIGO Dyson - Last Filed: 09/29/22 20:47> Source: patient <Maxim Casas MD - Last Filed: 09/29/22 21:46> Mode of arrival: ambulatory <Maxim Casas MD - Last Filed: 09/29/22 21:46> Limitations: no limitations <Maxim Casas MD - Last Filed: 09/29/22 21:46> History of Present Illness HPI narrative: Patient with hydropic gallbladder with no evidence of cholelithiasis been having upper abdominal pain since 05/29 seen her PCP had HIDA scan done today which was negative comes here for the pain in upper epigastric area after HIDA scan assist with nausea no vomiting pain is similar to that in the past <Maxim Casas MD - Last Filed: 09/29/22 21:46> Related Data Home Medications: Home Medications Medication Instructions Recorded Confirmed ipratropium 20 mcg-albuterol 100 1 puff inhalation QID 06/11/20 04/21/22 mcg/actuation mist for inhalation (Combivent Respimat) fluticasone propionate 50 1 spray intranasal DAILY PRN nasal 10/15/20 04/21/22 mcg/actuation nasal congestion spray,suspension (Flonase Allergy Relief) cyanocobalamin (vitamin B-12) 500 500 mcg PO DAILY 12/30/21 04/21/22 mcg tablet ergocalciferol (vitamin D2) 50 mcg 2,000 mcg PO 12/30/21 04/21/22 (2,000 unit) capsule vitamin with calcium 1 tab PO DAILY 12/30/21 04/21/22 no.72-iron 27 mg-folic acid 1 mg tablet (M-Renu Plus) Previous Rx's Medication Instructions Recorded nitrofurantoin 100 mg PO Q12H 7 days #14 caps 05/17/21 monohydrate/macrocrystals 100 mg capsule (Macrobid) phenazopyridine 200 mg tablet 200 mg PO TID PRN pain 6 doses #6 05/17/21 (Pyridium) tabs cyclobenzaprine 10 mg tablet 10 mg PO TID PRN muscle spasm #14 05/27/21 tabs ibuprofen 600 mg tablet 600 mg PO Q6H PRN pain #30 tabs 05/27/21 lidocaine 4 % topical patch 1 patch topical DAILY PRN pain #10 05/27/21 ea prednisone 20 mg tablet 20 mg PO DAILY 5 days #5 tabs 05/27/21 levothyroxine 175 mcg tablet 175 mcg PO DAILY 30 days #30 tabs 04/21/22 ondansetron 4 mg disintegrating 4 mg PO Q6-8H PRN nausea and 09/06/22 tablet vomiting #14 tabs oxycodone 5 mg tablet 5 mg PO Q6H PRN pain #20 tabs 09/06/22 pantoprazole 40 mg tablet,delayed 40 mg PO DAILY #30 tabs 09/06/22 release (Protonix) <INDIGO Dyson - Last Filed: 09/29/22 20:47> Allergies/Adverse Reactions: Allergies Allergy/AdvReac Type Severity Reaction Status Date / Time drospirenone [From SHAQ 28] Allergy Unknown SWELLING Verified 09/29/22 20:46 ethinyl estradiol Allergy Unknown SWELLING Verified 09/29/22 20:46 [From SHAQ 28] naproxen [From NAPROSYN] Allergy Unknown SWELLING Verified 09/29/22 20:46 sulfamethoxazole Allergy Unknown RASH Verified 09/29/22 20:46 [From BACTRIM] trimethoprim [From BACTRIM] Allergy Unknown RASH Verified 09/29/22 20:46 adhesive tape Allergy Unknown Unknown Uncoded 09/29/22 20:46 uti antibiotic Allergy Unknown Unknown Uncoded 09/29/22 20:46 <INDIGO Dyson - Last Filed: 09/29/22 20:47> Review of Systems Review of Systems Yes all other systems are reviewed and are negative <Maxim Casas MD - Last Filed: 09/29/22 21:46> PMFSH Past Medical History Medical History: Medical History Hypothyroidism Thyroid cancer Vitamin D deficiency <INDIGO Dyson - Last Filed: 09/29/22 20:47> Surgical History: Surgical History Hx of dilation and curettage Hx of thyroidectomy <INDIGO Dyson - Last Filed: 09/29/22 20:47> Family History Family History: Family History Father Asthma Hypertension Mother Hypertension <INDIGO Dyson - Last Filed: 09/29/22 20:47> Social History Social History: Social History Alcohol intake: current Alcohol intake frequency: holidays/special occasions only Patient Tobacco Use Status: Never used Tobacco Advance Directives: No Advance Directives Information Provided: No <INDIGO Dyson - Last Filed: 09/29/22 20:47> Physical Exam ED Vital Signs: Vital Signs - 24 hr 09/29/22 20:39 Temperature 97.4 F Pulse Rate 75 Respiratory Rate 20 Blood Pressure 136/81 Pulse Oximetry 98 Oxygen Delivery Method Room Air BMI result Body Mass Index 42.9 <INDIGO Dyson - Last Filed: 09/29/22 20:47> Vital Signs - 24 hr 09/29/22 20:39 Temperature 97.4 F Pulse Rate 75 Respiratory Rate 20 Blood Pressure 136/81 Pulse Oximetry 98 Oxygen Delivery Method Room Air BMI result Body Mass Index 42.9 <Maxim Casas MD - Last Filed: 09/29/22 21:46> Appearance: Alert. Oriented X3. No acute distress. Eyes: PERRLA, No Nystagmus ENT: Pharynx normal. Oral Mucosa moist Neck: Normal inspection. Neck supple. CVS: Normal heart rate and rhythm. Pulses normal. Respiratory: No respiratory distress. Equal air entry bilateral, no wheezing/rales/rhonchi Abdomen: Soft, tenderness in epigastric area no rebound tenderness or guarding no [place] sign. Bowel sounds are present, no mass palpable, no CVA tenderness Skin: Skin warm and dry. Normal skin color. Normal skin turgor. Extremities: No lower extremity edema. No calf tenderness Neuro: Oriented X 3. No motor deficit. <Maxim Casas MD - Last Filed: 09/29/22 21:46> Course Course Course Narrative: RME - 42 yo female presenting with acute onset of RUQ pain that started at 4:30pm today c/w her previous gallbladder attack pain. She took oxycodone and zofran and the pain continues to be a 9/10. She states she had a HIDA scan today at [facility] today but did not get the official results. Tech told her everything looked ok. Recent U/S here showed hydropic gallbladder w/ borderline normal wall thickness. No gallstones were seen. Will check LFTs and repeat U/S <INDIGO Dyson - Last Filed: 09/29/22 20:47> Medical Decision Making Medical Decision Making [facility] Narrative: Patient with chronic epigastric upper abdominal pain for over [address] scan shows hydropic gallbladder patient need to follow with environmental compliance engineer for further workup <Maxim Casas MD - Last Filed: 09/29/22 21:46> Lab Data [facility] Lab Attestation statement: I reviewed the patient's lab results. <Maxim Casas MD - Last Filed: 09/29/22 21:46> Result Diagrams: 09/29/22 20:57 09/29/22 20:57 <INDIGO Dyson - Last Filed: 09/29/22 20:47> Labs: Lab Results 09/29/22 09/29/22 Range/Units 20:57 20:57 WBC 9.2 (4.8-10.8) X10*3/uL RBC 4.79 (4.20-5.50) X10*6/uL Hgb 14.0 (12.0-16.0) g/dl Hct 43.1 (37.0-47.0) % MCV 90.0 (80.0-98.0) fL MCH 29.2 (27.0-33.0) pg MCHC 32.5 (31.0-35.0) g/dl RDW 15.4 (11.0-16.0) % Plt Count 223 (160-400) X10*3/uL MPV 12.2 (9.4-12.3) fL Immature Gran % (Auto) 0.2 (0.0-0.4) % Neut % (Auto) 76.0 H (45-73) % Lymph % (Auto) 11.5 L (20-40) % [place] % (Auto) 11.3 H (2-11) % Eos % (Auto) 0.3 (0-4) % Baso % (Auto) 0.7 (0-2) % Lymph # (Auto) 1.1 L (1.2-4.9) X10*3/uL [place] # (Auto) 1.0 (0.1-1.2) X10*3/uL Eos # (Auto) 0.0 (0.0-0.4) X10*3/uL Baso # (Auto) 0.1 (0.0-0.2) X10*3/uL Abs Immat Gran (auto) 0.02 (0.00-0.03) X10*3/uL Absolute Neuts (auto) 7.0 (2.0-8.3) x10*3/uL Absolute Nucleated RBC 0.000 (0.0-0.012) X10*3/uL Nucleated RBC % (auto) 0.0 (0.0-0.2) /100WBC Sodium 144 (135-145) mmol/L Potassium 4.1 (3.3-5.1) mmol/L Chloride 107 (96-108) mmol/L Carbon Dioxide 25 (22-29) mmol/L Anion Gap 16 (12-20) BUN 14 (9-16) mg/dL Creatinine 0.70 (0.5-1.4) mg/dL Estim Creat Clear Calc 114.2 Estimated GFR > 60 Random Glucose 114 (60-115) mg/dL Calcium 8.6 (8.4-10.2) mg/dL Magnesium 2.0 (1.6-2.6) mg/dL Total Bilirubin 1.2 H (0.0-1.0) mg/dL Direct Bilirubin 0.6 H (0.0-0.5) mg/dL AST 127 H (5-31) U/L ALT 85 H (0-31) U/L Alkaline Phosphatase 80 (39-117) U/L Total Protein 6.9 (6.5-8.0) g/dL Albumin 4.2 (3.5-5.0) g/dL <INDIGO Dyson - Last Filed: 09/29/22 20:47> Lab Results 09/29/22 09/29/22 Range/Units 20:57 20:57 WBC 9.2 (4.8-10.8) X10*3/uL RBC 4.79 (4.20-5.50) X10*6/uL Hgb 14.0 (12.0-16.0) g/dl Hct 43.1 (37.0-47.0) % MCV 90.0 (80.0-98.0) fL MCH 29.2 (27.0-33.0) pg MCHC 32.5 (31.0-35.0) g/dl RDW 15.4 (11.0-16.0) % Plt Count 223 (160-400) X10*3/uL MPV 12.2 (9.4-12.3) fL Immature Gran % (Auto) 0.2 (0.0-0.4) % Neut % (Auto) 76.0 H (45-73) % Lymph % (Auto) 11.5 L (20-40) % [place] % (Auto) 11.3 H (2-11) % Eos % (Auto) 0.3 (0-4) % Baso % (Auto) 0.7 (0-2) % Lymph # (Auto) 1.1 L (1.2-4.9) X10*3/uL [place] # (Auto) 1.0 (0.1-1.2) X10*3/uL Eos # (Auto) 0.0 (0.0-0.4) X10*3/uL Baso # (Auto) 0.1 (0.0-0.2) X10*3/uL Abs Immat Gran (auto) 0.02 (0.00-0.03) X10*3/uL Absolute Neuts (auto) 7.0 (2.0-8.3) x10*3/uL Absolute Nucleated RBC 0.000 (0.0-0.012) X10*3/uL Nucleated RBC % (auto) 0.0 (0.0-0.2) /100WBC Sodium 144 (135-145) mmol/L Potassium 4.1 (3.3-5.1) mmol/L Chloride 107 (96-108) mmol/L Carbon Dioxide 25 (22-29) mmol/L Anion Gap 16 (12-20) BUN 14 (9-16) mg/dL Creatinine 0.70 (0.5-1.4) mg/dL Estim Creat Clear Calc 114.2 Estimated GFR > 60 Random Glucose 114 (60-115) mg/dL Calcium 8.6 (8.4-10.2) mg/dL Magnesium 2.0 (1.6-2.6) mg/dL Total Bilirubin 1.2 H (0.0-1.0) mg/dL Direct Bilirubin 0.6 H (0.0-0.5) mg/dL AST 127 H (5-31) U/L ALT 85 H (0-31) U/L Alkaline Phosphatase 80 (39-117) U/L Total Protein 6.9 (6.5-8.0) g/dL Albumin 4.2 (3.5-5.0) g/dL <Maxim Casas MD - Last Filed: 09/29/22 21:46> Medications Administered Discontinued Medications Generic Name Dose Route Start Last Admin Trade Name Freq PRN Reason Stop Dose Admin Al Hydroxide/Mg Hydroxide 30 ml 09/29/22 21:26 09/29/22 21:38 Magnesium Hydrox/Alum Hydrox 30 Ml Oral.Susp PO 09/29/22 21:27 30 ml ONCE ONE Administration Lidocaine HCl 15 ml 09/29/22 21:26 09/29/22 21:38 Lidocaine Hcl Viscous 2 % 15 Ml Solution MUCOUS MEM 09/29/22 21:27 15 ml ONCE ONE Administration <INDIGO Dyson - Last Filed: 09/29/22 20:47> Medications Administered Discontinued Medications Generic Name Dose Route Start Last Admin Trade Name Freq PRN Reason Stop Dose Admin Al Hydroxide/Mg Hydroxide 30 ml 09/29/22 21:26 09/29/22 21:38 Magnesium Hydrox/Alum Hydrox 30 Ml Oral.Susp PO 09/29/22 21:27 30 ml ONCE ONE Administration Lidocaine HCl 15 ml 09/29/22 21:26 09/29/22 21:38 Lidocaine Hcl Viscous 2 % 15 Ml Solution MUCOUS MEM 09/29/22 21:27 15 ml ONCE ONE Administration <Maxim Casas MD - Last Filed: 09/29/22 21:46> Discharge Plan Discharge Clinical Impression: Abdominal pain <INDIGO Dyson - Last Filed: 09/29/22 20:47> Patient Disposition: Home, Self-Care <INDIGO Dyson - Last Filed: 09/29/22 20:47> Instructions: Abdominal Pain (ED) <INDIGO Dyson - Last Filed: 09/29/22 20:47> Additional Instructions: Your HIDA scan was negative for obstructive lesion of gallbladder Take medication as prescribed Have small meals Follow-up with environmental compliance engineer <INDIGO Dyson - Last Filed: 09/29/22 20:47> Prescriptions: No Action cyclobenzaprine 10 mg tablet 10 mg PO TID PRN (Reason: muscle spasm) Qty: 14 0RF lidocaine 4 % adhesive patch,medicated 1 patch topical DAILY PRN (Reason: pain) Qty: 10 0RF Rx Instructions: may leave on for up to 12 hrs prednisone 20 mg tablet 20 mg PO DAILY 5 Days Qty: 5 0RF ibuprofen 600 mg tablet 600 mg PO Q6H PRN (Reason: pain) Qty: 30 0RF phenazopyridine [Pyridium] 200 mg tablet 200 mg PO TID PRN (Reason: pain) Qty: 6 0RF nitrofurantoin monohyd/m-cryst [Macrobid] 100 mg capsule 100 mg PO Q12H 7 Days Qty: 14 0RF Rx Instructions: must administer with a meal/food oxycodone 5 mg tablet 5 mg PO Q6H PRN (Reason: pain) Qty: 20 0RF Rx Instructions: Partial Fill upon patient request. ondansetron 4 mg tablet,disintegrating 4 mg PO Q6-8H PRN (Reason: nausea and vomiting) Qty: 14 0RF pantoprazole [Protonix] 40 mg tablet,delayed release (DR/EC) 40 mg PO DAILY Qty: 30 0RF Combivent Respimat 20-100 mcg/actuation mist 1 puff inhalation QID Rx Instructions: space evenly during waking hours fluticasone propionate [Flonase Allergy Relief] 50 mcg/actuation spray,suspension 1 spray intranasal DAILY PRN (Reason: nasal congestion) Rx Instructions: administer into each nostril levothyroxine 175 mcg tablet 175 mcg PO DAILY 30 Days Qty: 30 4RF M-Renu Plus 27 mg iron- 1 mg tablet 1 tab PO DAILY cyanocobalamin (vitamin B-12) 500 mcg tablet 500 mcg PO DAILY ergocalciferol (vitamin D2) 50 mcg (2,000 unit) capsule 2,000 mcg PO <INDIGO Dyson - Last Filed: 09/29/22 20:47>
[2022-09-29 21:01] LABS: MANUAL DIFF FLAG NO
[2022-09-29 21:02] LABS: Basophils Absolute Auto 0.1 X10*3/uL (0.0-0.2); Basophils Percent Auto 0.7 % (0-2); Eosinophils Percent Auto 0.3 % (0-4); Hematocrit 43.1 % (37.0-47.0); Imm Gran Abs Auto 0.02 X10*3/uL (0.00-0.03); Imm Gran Pct Auto 0.2 % (0.0-0.4); Lymphocytes Absolute Auto 1.1 X10*3/uL (1.2-4.9); Lymphocytes Percent Auto 11.5 % (20-40); Mean Corpuscular HGB Conc 32.5 g/dl (31.0-35.0); Mean Corpuscular Hemoglobin 29.2 pg (27.0-33.0); Mean Platelet Volume 12.2 fL (9.4-12.3); Monocytes Percent Auto 11.3 % (2-11); Platelet Count 223 X10*3/uL (160-400); Red Blood Count 4.79 X10*6/uL (4.20-5.50); Red Cell Distribution Width 15.4 % (11.0-16.0); White Blood Count 9.2 X10*3/uL (4.8-10.8)
[2022-09-29 21:29] LABS: Alanine Aminotransferase 85 U/L (0-31); Albumin Level 4.2 g/dL (3.5-5.0); Alkaline Phosphatase 80 U/L (39-117); Anion Gap 16 (12-20); Aspartate Amino Transferase 127 U/L (5-31); Bilirubin Direct 0.6 mg/dL (0.0-0.5); Bilirubin Total 1.2 mg/dL (0.0-1.0); Blood Urea Nitrogen 14 mg/dL (9-16); Calcium 8.6 mg/dL (8.4-10.2); Carbon Dioxide 25 mmol/L (22-29); Chloride 107 mmol/L (96-108); Creatinine Clr Calc Pharmacy 114.2; Estimated Glomerular Filt Rate > 60; Glucose Random 114 mg/dL (60-115); Potassium 4.1 mmol/L (3.3-5.1); Sodium 144 mmol/L (135-145); Total Protein 6.9 g/dL (6.5-8.0)
[2022-09-29] MEDS: Lidocaine HCl Viscous 2 % 15 ML SOLUTION MUCOUS MEM (21:38)
[2022-09-29] MEDS: Magnesium Hydrox/Alum Hydrox 30 ML ORAL.SUSP PO (21:38)
== END 2022-09-29 22:11 | disposition home or self-care (01) ==
PROVIDERS: Physician Assistant; Emergency Provider Internal Medicine; PCP Internal Medicine
DX: G89.29 Other chronic pain (principal); R10.13 Epigastric pain; R10.10 Upper abdominal pain, unspecified; I10 Essential (primary) hypertension; Z79.899 Other long term (current) drug therapy
CPT/HCPCS: 36415; 80048; 80076; 83735; 85025; 99282; 99283

== ENCOUNTER 2022-10-10 06:44 | Outpatient (REF) | payer OTHER, SELFPAY ==
[2022-10-10 08:53] LABS: Free T4 (Free Thyroxine) 0.66 ng/dL (0.71-1.85); Thyroid Stimulating Hormone 31.48 uIU/mL (0.32-4.0); Vitamin D 25-OH Total 17.6 ng/mL (>30)
== END 2022-10-10 06:45 | disposition home or self-care (01) ==
LOC: HO.LAB 06:44
PROVIDERS: PCP Internal Medicine; Visit Provider Internal Medicine
DX: E89.0 Postprocedural hypothyroidism (principal); E55.9 Vitamin D deficiency, unspecified
CPT/HCPCS: 36415; 82306; 84439; 84443

== ENCOUNTER 2022-12-03 11:42 | Outpatient (REF) | payer OTHER, SELFPAY ==
[2022-12-03 14:18] LABS: Free T4 (Free Thyroxine) 1.13 ng/dL (0.71-1.85); Thyroid Stimulating Hormone 15.82 uIU/mL (0.32-4.0)
== END 2022-12-03 11:43 | disposition home or self-care (01) ==
LOC: HO.10HDL 11:42
PROVIDERS: Visit Provider Internal Medicine
DX: E89.0 Postprocedural hypothyroidism (principal)
CPT/HCPCS: 36415; 84439; 84443

== ENCOUNTER 2023-01-01 12:22 | Outpatient (REF) | payer OTHER, SELFPAY ==
[2023-01-01 14:19] LABS: Free T4 (Free Thyroxine) 1.22 ng/dL (0.71-1.85); Thyroid Stimulating Hormone 3.03 uIU/mL (0.32-4.0)
== END 2023-01-01 12:23 | disposition home or self-care (01) ==
LOC: HO.10HDL 12:22
PROVIDERS: Visit Provider Internal Medicine
DX: E89.0 Postprocedural hypothyroidism (principal)
CPT/HCPCS: 36415; 84439; 84443

== ENCOUNTER → 2023-01-07 07:54 | Outpatient (BNVA) | payer OTHER, SELFPAY | PROVIDERS: PCP Internal Medicine; Visit Provider Internal Medicine ==

== ENCOUNTER → 2023-01-21 08:25 | Outpatient (BNVA) | payer OTHER, SELFPAY | PROVIDERS: PCP Internal Medicine; Visit Provider Physician Assistant Surgical ==

== ENCOUNTER → 2023-01-26 14:20 | Outpatient (BNVA) | payer OTHER, SELFPAY | PROVIDERS: PCP Internal Medicine; Visit Provider Internal Medicine ==

== ENCOUNTER → 2023-02-23 08:22 | Outpatient (BNVA) | payer OTHER, SELFPAY | PROVIDERS: PCP Internal Medicine; Visit Provider Physician Assistant | DX: E66.01 Morbid (severe) obesity due to excess calories (principal); E89.0 Postprocedural hypothyroidism; C73 Malignant neoplasm of thyroid gland; J45.909 Unspecified asthma, uncomplicated; Z90.3 Acquired absence of stomach [part of]; Z68.41 Body mass index [BMI] 40.0-44.9, adult | CPT/HCPCS: 99202 ==

== ENCOUNTER 2023-03-18 10:30 | Outpatient (AMB) | payer OTHER, SELFPAY ==
--- NOTE | 2023-03-18 10:44 | MHC.OFFVISWM ---
Intake VS Expanded 03/18/23 10:49 Height 5 ft 1 in Weight 228 lb BMI 43.1 Intake Visit Reasons: VIDEO F/U SWL Allergies drospirenone [From SHAQ 28] Allergy (Unknown, Verified 02/23/23 08:40) SWELLING ethinyl estradiol [From SHAQ 28] Allergy (Unknown, Verified 02/23/23 08:40) SWELLING naproxen [From NAPROSYN] Allergy (Unknown, Verified 02/23/23 08:40) SWELLING sulfamethoxazole [From BACTRIM] Allergy (Unknown, Verified 02/23/23 08:40) RASH trimethoprim [From BACTRIM] Allergy (Unknown, Verified 02/23/23 08:40) RASH adhesive tape Allergy (Unknown, Uncoded 01/26/23 14:24) Unknown uti antibiotic Allergy (Unknown, Uncoded 01/26/23 14:24) Unknown HPI HPI Comments History of Present Illness Details This is patients second appt for revision from band to LSG done previously. Labs and UGI wre ordered on first appt. Labs have not been drawn yet. Meal plan and exercise plans created. Meal plan - had started meal plan for 2 weeks, then stopped while on vacation and restarted on vacation. 8:30- Premeir 12:30- same shake 3:30 - Zone bar dinner - meat and veggie 4 oz/4 oz Exercise - 20 or 30 minute beach body videos - 4 d/ week. [facility] Medical History (Updated 02/23/23 @ 08:42 by Faviola Harris PA-C) Hypothyroidism Thyroid cancer Vitamin D deficiency Surgical History (Updated 02/23/23 @ 08:42 by Faviola Harris PA-C) Hx of section Hx of dilation and curettage Hx of thyroidectomy S/P gastric sleeve procedure Family History Father Asthma Hypertension Mother Hypertension Social History Alcohol intake: current Alcohol intake frequency: holidays/special occasions only Patient Tobacco Use Status: Never used Tobacco Assessment & Plan Assessment & Plan (1) Morbid obesity: Code(s): E66.01 - Morbid (severe) obesity due to excess calories Plan: Pt started plan, stopped for vacation and then restarted - will continue now with her meal plan. Exercise - recommended doing at lest 30 minute classes 5d/ week. Will schedule RD, BH and SWL classes now. Pt states she will get labs done this week. Will order the rest of the pre op work up at next appt if she is progressing Next appt with me in 3 weeks. Patient is still morbidly obese and is not considered stable at this time. I spent 15 minutes in total speaking with the patient via video conference counseling , reviewing records and charting in patients chart. . (2) S/P gastric sleeve procedure: Comment: 2018 [facility] Code(s): Z90.3 - Acquired absence of stomach [part of] Telehealth Telehealth Location of provider rendering services: practice address Location of patient: address on file Patient Identification confirmed using: Name, : Yes Telehealth method: video Patient verbally consented to treatment: Yes Patient verbally consented to billing insurance company: Yes Patient informed of any privacy concerns related to visit: Yes Coding Level of Care Code Tele Est Pt Level 3 (25484) Diagnoses Morbid obesity E66.01 S/P gastric sleeve procedure Z90.3
[2023-03-18 10:49] VITALS: BMI 43.1
== END 2023-03-18 10:54 | disposition home or self-care (01) ==
LOC: HO.HBS 10:53
PROVIDERS: PCP Internal Medicine; Visit Provider Physician Assistant
DX: E66.01 Morbid (severe) obesity due to excess calories (principal); Z68.41 Body mass index [BMI] 40.0-44.9, adult; Z90.3 Acquired absence of stomach [part of]; Z98.84 Bariatric surgery status
CPT/HCPCS: 99213

== ENCOUNTER → 2023-03-18 10:30 | Outpatient (BNVA) | payer OTHER, SELFPAY | PROVIDERS: PCP Internal Medicine; Visit Provider Physician Assistant ==

== ENCOUNTER 2023-03-21 08:20 | Outpatient (REF) | payer OTHER, SELFPAY ==
[2023-03-21 08:40] LABS: MANUAL DIFF FLAG NO
[2023-03-21 08:49] LABS: Basophils Percent Auto 0.9 % (0-2); Eosinophils Absolute Auto 0.2 X10*3/uL (0.0-0.4); Eosinophils Percent Auto 4.7 % (0-4); Hematocrit 40.5 % (37.0-47.0); Hemoglobin 13.4 g/dl (12.0-16.0); Imm Gran Abs Auto 0.01 X10*3/uL (0.00-0.03); Imm Gran Pct Auto 0.2 % (0.0-0.4); Lymphocytes Absolute Auto 0.9 X10*3/uL (1.2-4.9); Mean Corpuscular HGB Conc 33.1 g/dl (31.0-35.0); Mean Corpuscular Hemoglobin 29.5 pg (27.0-33.0); Mean Corpuscular Volume 89.2 fL (80.0-98.0); Mean Platelet Volume 12.7 fL (9.4-12.3); Monocytes Absolute Auto 0.5 X10*3/uL (0.1-1.2); Monocytes Percent Auto 12.4 % (2-11); Neutrophils Absolute Auto 2.6 x10*3/uL (2.0-8.3); Neutrophils Percent Auto 60.8 % (45-73); Platelet Count 152 X10*3/uL (160-400); Red Blood Count 4.54 X10*6/uL (4.20-5.50); Red Cell Distribution Width 14.6 % (11.0-16.0); White Blood Count 4.3 X10*3/uL (4.8-10.8)
[2023-03-21 09:35] LABS: Alanine Aminotransferase 10 U/L (0-31); Alkaline Phosphatase 53 U/L (39-117); Anion Gap 12 (12-20); Aspartate Amino Transferase 13 U/L (5-31); Bilirubin Total 0.9 mg/dL (0.0-1.0); Blood Urea Nitrogen 12 mg/dL (9-16); C Reactive Protein 0.13 mg/dL (< or = 0.50); Calcium 8.5 mg/dL (8.4-10.2); Carbon Dioxide 23 mmol/L (22-29); Chloride 108 mmol/L (96-108); Cholesterol 145 mg/dL; Estimated Glomerular Filt Rate > 60; Glucose Random 91 mg/dL (60-115); HDL Cholesterol 66 mg/dL; Iron 79 mcg/dL (30-160); LDL Cholesterol Calculated 72 mg/dl; Percent Iron Saturation 31 % (15-50); Potassium 4.1 mmol/L (3.3-5.1); Sodium 139 mmol/L (135-145); Total Iron Binding Capacity 254 mcg/dL (228-428); Total Protein 6.7 g/dL (6.5-8.0); Triglycerides 39 mg/dL; Unsaturated Iron Binding 175 ug/dL
[2023-03-21 09:38] LABS: Estimated Average Glucose 91 mg/dL; Hemoglobin A1c % 4.8 %
[2023-03-21 09:43] LABS: Free T4 (Free Thyroxine) 0.79 ng/dL (0.71-1.85)
[2023-03-21 10:00] LABS: Ferritin 18 ng/mL (10-250); TSH reflex Free T4 17.67 uIU/mL (0.32-4.0); Thyroid Stimulating Hormone 17.67 uIU/mL (0.32-4.0); Vitamin D 25-OH Total 27.1 ng/mL (>30)
[2023-03-21 10:03] LABS: Folate 11.6 ng/mL (> or = 4.0)
[2023-03-21 10:11] LABS: Insulin 6 uU/mL (2-29); Vitamin B12 575 pg/mL (200-900)
[2023-03-23 01:44] LABS: HCG Tumor Marker <5 mIU/mL
[2023-03-24 19:09] LABS: Calcium (PTHI) 8.5 mg/dL (8.6-10.2); PTHI 40 pg/mL (16-77)
[2023-03-25 06:48] LABS: Zinc 67 mcg/dL (60-130)
[2023-03-26 17:23] LABS: Vitamin A 27 mcg/dL (38-98)
[2023-03-27 13:47] LABS: Vitamin B1 12 nmol/L (8-30)
[2023-03-30 01:13] LABS: Thyroglobulin Antibody 2 IU/mL (<=1); Thyroglobulin LC/MS/MS <0.4 ng/mL (Athyrotic: <0)
== END 2023-03-21 08:21 | disposition home or self-care (01) ==
LOC: HO.LAB 08:20
PROVIDERS: Absent Provider Internal Medicine; PCP Internal Medicine; Visit Provider Physician Assistant
DX: E66.01 Morbid (severe) obesity due to excess calories (principal); C73 Malignant neoplasm of thyroid gland; Z90.3 Acquired absence of stomach [part of]
CPT/HCPCS: 36415; 80053; 80061; 82306; 82607; 82728; 82746; 83036; 83525; 83540; 83970; 84425; 84432; 84439; 84443; 84590; 84630; 84702; 85025; 86140; 86800

== ENCOUNTER 2023-04-01 08:09 | Outpatient (REF) | payer OTHER, SELFPAY ==
--- NOTE | ~2023-04-01 | FL_ITS ---
EXAMINATION: XR FLUOROSCOPY UPPER GI WITH AIR CLINICAL INFORMATION: Obesity. Patient has history of previous gastric sleeve procedure. COMPARISON: None available. TECHNIQUE: Upper GI was performed using thin and thick barium and effervescent granules FINDINGS: Esophageal motility is normal. There is mild gastroesophageal reflux. No hernia is seen. The stomach and duodenum are normal-appearing. No fold thickening, mass, ulcer or stricture is seen. FLUOROSCOPY TIME: 0.4 minutes DOSE AREA PRODUCT: 4.8 Julio per centimeter squared. Total dose 16.6 mgy. 17 saved fluoroscopic images. FL/FL upper GI w air IMPRESSION: Mild gastroesophageal reflux otherwise unremarkable exam.
== END 2023-04-01 08:10 | disposition home or self-care (01) ==
LOC: HO.XRAY 08:09
PROVIDERS: PCP Internal Medicine; Visit Provider Physician Assistant
DX: E66.01 Morbid (severe) obesity due to excess calories (principal); Z90.3 Acquired absence of stomach [part of]
CPT/HCPCS: 74246

== ENCOUNTER → 2023-04-01 08:10 | Outpatient (BNV) | payer OTHER, SELFPAY | PROVIDERS: PCP Internal Medicine; Visit Provider Radiology Diagnostic Radiology | DX: E66.01 Morbid (severe) obesity due to excess calories (principal); Z68.41 Body mass index [BMI] 40.0-44.9, adult; Z90.3 Acquired absence of stomach [part of]; Z98.84 Bariatric surgery status | CPT/HCPCS: 74246 ==

== ENCOUNTER 2023-04-30 15:30 | Outpatient (REF) | payer OTHER, SELFPAY ==
[2023-04-30 18:28] LABS: Free T4 (Free Thyroxine) < 0.42 ng/dL (0.71-1.85); HCG Quantitative < 2 mIU/mL; Thyroid Stimulating Hormone > 100.00 uIU/mL (0.32-4.0)
[2023-05-15 01:54] LABS: Thyroglobulin Antibody 2 IU/mL (<=1); Thyroglobulin LC/MS/MS <0.4 ng/mL (Athyrotic: <0)
== END 2023-04-30 15:31 | disposition home or self-care (01) ==
LOC: HO.LAB 15:30
PROVIDERS: Visit Provider Internal Medicine
DX: C73 Malignant neoplasm of thyroid gland (principal)
CPT/HCPCS: 36415; 84432; 84439; 84443; 84702; 86800

== ENCOUNTER 2023-05-05 10:57 | Outpatient (REF) | payer OTHER, SELFPAY ==
[2023-05-05 14:16] LABS: HCG Quantitative < 2 mIU/mL
[2023-05-05 14:49] LABS: Free T4 (Free Thyroxine) < 0.42 ng/dL (0.71-1.85); Thyroid Stimulating Hormone > 100.00 uIU/mL (0.32-4.0)
[2023-05-16 00:49] LABS: Thyroglobulin Antibody 2 IU/mL (<=1); Thyroglobulin LC/MS/MS <0.4 ng/mL (Athyrotic: <0)
== END 2023-05-05 10:58 | disposition home or self-care (01) ==
LOC: HO.10HDL 10:57
PROVIDERS: Visit Provider Internal Medicine
DX: C73 Malignant neoplasm of thyroid gland (principal)
CPT/HCPCS: 36415; 84432; 84439; 84443; 84702; 86800

== ENCOUNTER → 2023-05-13 14:00 | Outpatient (BNVA) | payer OTHER, SELFPAY | PROVIDERS: PCP Internal Medicine; Visit Provider Internal Medicine ==

== ENCOUNTER → 2023-05-13 14:04 | Outpatient (BNV) | payer OTHER, SELFPAY ==
--- NOTE | 2023-05-13 14:04 | A.OFFVIS_ITS ---
Intake Intake Visit Reasons: Amb Documentation Allergies drospirenone [From SHAQ 28] Allergy (Unknown, Verified 05/13/23 14:04) SWELLING ethinyl estradiol [From SHAQ 28] Allergy (Unknown, Verified 05/13/23 14:04) SWELLING naproxen [From NAPROSYN] Allergy (Unknown, Verified 05/13/23 14:04) SWELLING sulfamethoxazole [From BACTRIM] Allergy (Unknown, Verified 05/13/23 14:04) RASH trimethoprim [From BACTRIM] Allergy (Unknown, Verified 05/13/23 14:04) RASH adhesive tape Allergy (Unknown, Uncoded 05/13/23 14:04) Unknown uti antibiotic Allergy (Unknown, Uncoded 05/13/23 14:04) Unknown Medication List - Last Reconciled 05/13/23 by Liliya Wayne DO cholecalciferol (vitamin D3) 50 mcg PO DAILY cyanocobalamin (vitamin B-12) 500 mcg PO DAILY fluticasone propionate 50 mcg/actuation (Flonase Allergy Relief) 1 spray intranasal DAILY PRN ibuprofen 600 mg PO Q6H PRN ipratropium-albuterol 20-100 mcg/actuation (Combivent Respimat) 1 puff inhalation QID levothyroxine 200 mcg PO DAILY 30 days liothyronine (Cytomel) 25 mcg PO DAILY 14 days PNV,calcium 52-elal-vkyrw acid 27 mg iron- 1 mg (M-Ernu Plus) 1 tab PO DAILY vitamin A palmitate 6,000 mcg (2 x 3,000 mcg (10,000 unit)) PO DAILY 2 weeks HPI HPI Comments History of Present Illness Details 43 YO Female with PMHx 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 She is currently 10 months with a healthy baby boy. She is currently . Review of records reveals that patient has a history of papillary thyroid cancer that was diagnosed in October of 2013. She is status post total thyr oidectomy which was completed October of 2013 at [facility] in [place]. Pathology revealed a 1.6 x 1.2x 1.3 cm left-sided PTC with 5% of cells tall cell variant. There was additionally multifocal microscopic foci of PTC within the R lobe, but no perithyroidal extension was identified. This was stage 1, PT1PN0. Surgery was completed at [facility] in [place] and she later received I- 131 ablation 35 millicurries at [facility] on 02/27/14. Her supervisor waterproofing was Dr. Roque at that time. She later followed up with [facility] in December of 2017. Labs have revealed persistently elevated thyroglobulin antibodies. She did have a whole body scan completed 02/22/14 with report reading LEI uptake in the thyroid bed consistent with metastatic disease if this patient is status post complete thyroidectomy. No distant metastatic deposits are identified. She received her I131 remnant ablation with 35 millicurries just after this. She did have an ultrasound of the neck completed 10/05/2017 which did reveal multiple enlarged cervical lymph nodes. She does report that she had biopsy of 1 lymph node in the past and that this was negative for malignancy. We repeated thyrogen stimulated WBS 03/25/19 which revealed persistent uptake within the thyroid bed, and also faint uptake within the R neck concerning for lymph node mets. TSH checked at that time was 144.62, with TG level of 0.2, with positive TG antibodies of 5. She had US soft tissue head and neck 02/21/19 which revealed multiple bilateral enlarged lymph nodes, including a L level 3 complex appearing 1.9 cm lymph node. She did have FNA biopsy of the enlarged R level II, R level IV, R level V and L level III lymph nodes. All were negative for carcinoma. TG washout was negative in all but the R level II lymph node, where no TG washout was sent. She was poorly compliant with her thyroid hormone medicaton prior to our visit 03/21/2020. TSH was approximately 12 at that time. She was counseled on the importance of compliance and from 03/21/2020 she had been compliant with Levothyroxine 175 mcg PO daily. She notified me of 04/30/2020 and her dose of Levothyroxine was increased to 200 mcg PO daily. She reported good compliance with this. Labs 06/04/2020 reveal TSH of 0.22 with FT4 by dialysis of 2.1. Labs then repeated Oct 2020 revealed elevated FT4 and TT3, so her dose of Levothyroxine was decreased to 150 mcg PO daily, but then increased again to 175 mcg PO daily. She had thyrogen stimulated labs completed 11/21/2020 which revealed a TSH of 91.16 with a TG of 0.3 and TG antibodies of 6. She unfortunately suffered a miscarriage and then began fertility treatments. She was able to succesfully conceive, and now has a 5 week old healthy baby boy. Her dose of levothyroxine was increased to 175 mcg PO 5 days per week, with 2 tabs 2 days per week at the time of conception. She has elected to defer any further WBS or any I131 treatment until after childbearing is complete. She did undergo a repeat US of the head and neck 10/30/2020 which revealed persistent lymphadenopathy. This was repeated 05/21/2021 and revealed 3 abnormal appearing cervical lymph nodes, a R level IB 1.1 cm, R level IB 0.8 cm, and a R level IA 0.3 cm lymph node. She underwent FNA biopsy of her R level IB 1.1 cm cervical lymph node 06/05/2021 with no evidence of metastatic carcinoma identified. She had multiple additional enlarged lymph nodes noted bilaterally, but these all had normal morphology. She now has completed childbearing and has had a tubal ligation. She also has completed . She remains on levothyroxine 200 mcg PO daily now. She underwent an I131 WBS 05/08/2023 with results revealing only physiologic uptake. TSH was >100. Stimulated TG levels are pending at this time. US Soft Tissue Head and Neck: 05/21/2021 FINDINGS: THYROID BED: Prior thyroidectomy. No residual thyroid tissue demonstrated in the thyroid bed. No cystic or solid nodules demonstrated in the thyroid bed. There are numerous normal-appearing lymph nodes seen bilaterally RIGHT NECK SOFT TISSUES: Scattered lymph nodes are present. Some appear normal with normal fatty clefts and smooth margins without cortical thickening or lobulation. A few are abnormal and will be listed. The largest nodes are as follows: Level 3: 2.2 x 0.6 x 0.6 cm.? Normal nicole architecture Level 3: 1.9 x 0.7 x 1.4 cm.? Normal nicole architecture. Cortical thickness of 2.5 mm. There is an abnormal right level 1B lymph node that was not previously seen measuring 5 x 5 x 5 mm in size. It is rounded in appearance without fatty hilum identified. There is an abnormal lymph node seen within level 1B measuring 1.1 x 0.5 x 0.9 cm in size with a nodular cortex. There is normal fatty cleft present and no cortical thickening. There is an abnormal lymph node seen at level 1B which is essentially stable in size to previous study measuring 8 x 6 x 8 mm in size with some cortical nodularity but without significant change from prior study. Fatty hilum present. There is an abnormal-appearing lymph node level IA measuring 3 x 2 x 3 mm in size which is smaller than on prior study where it measured 5 x 4 x 5 mm in size. LEFT NECK SOFT TISSUES: Scattered architecturally normal nodes are present. The nodes show normal fatty hilus, normal cortical thickness, and no cystic change or calcification. No abnormal color flow. The largest nodes are as follows: Level 3: 1.1 x 0.3 x 0.8 cm.? Normal nicole architecture. This was not noted on previous study. Level 3: 1.3 x 0.5 x 0.6 cm.? Normal nicole architecture. This has enlarged and previously was 1.3 x 0.5 x 0.6 cm in size. Level 1B: 1.5 x 0.5 x 1.2 cm in size compared to previous study where it measured 1.2 x 0.6 x 0.9 cm in size. Normal nicole architecture. There are 3 other lymph nodes that were not seen on prior study: One within level 2 measuring 5 x 2 x 5 mm in size. This has normal architecture. Another is in level 3 measuring 1.1 x 0.3 x 0.8 cm in size. This has normal architecture. The third is in segment 5A measuring 6 x 4 x 5 mm in size with normal architecture. Labs: Laboratory Tests 05/05/23 11:05 TSH > 100.00 H Free T4 < 0.42 L [facility] Medical History Hypothyroidism Thyroid cancer Vitamin D deficiency Surgical History Hx of section Hx of dilation and curettage Hx of thyroidectomy S/P gastric sleeve procedure Family History Father Asthma Hypertension Mother Hypertension Social History (Reviewed 05/13/23 @ 14:16 by BERNARDA Arias Alcohol intake: current Alcohol intake frequency: holidays/special occasions only Patient Tobacco Use Status: Never used Tobacco Assessment & Plan Assessment & Plan (1) Thyroid cancer: Code(s): C73 - Malignant neoplasm of thyroid gland Plan: 42 YO Female with PMHx 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 She did have WBS with concern for persistent or metastatic disease within the R neck. She had US which revealed multiple enlarged lymph nodes within the R and L neck. She had FNA of the most concerning of these lymph nodes, with negative TG washout and no evidence of carcinoma. TG has remained low, even stimulated, but there are TG antibodies present. We have discussed potential management options. We discussed that there is potential for recurrent PTC within her neck with spread to the lymph nodes. We discussed that this is concerning given the tall cell variant. We discussed potential options of repeat I131 ablation with a higher dose vs surveillance with repeat US, TG/TGAB levels and WBS at routine intervals. Patient now completed and underwent tubal ligation so no plans for future pregnancies. Will proceed with a nuclear medicine WBS at this time, and discuss findings. Thyrogen was unfortunately not approved. She completed her I131 WBS 05/08/2023 via the withdrawal protocol. TSH was >100 with TG and TG antibody pending at this time. Uptake was only physiologic. We reviewed this in detail today. Plan is to continue with routine surveillance. She will be seeing Walker Lemon in the coming months and determine interval of US cervical lymph node mapping as well as TG/TGAB monitoring. She is currently taking 2 tabs of levothyroxine daily this week and is set to return to 1 tab daily next week. I will repeat her TFTs now and call with adjustments. I would like to insure her TSH is improving. All of her questions were answered today. She is in agreement with this plan of care. I spent 20 minutes in reviewing the record, seeing the patient and documenting in the medical record including 5 minutes on the phone with the Patient. (2) Hypothyroidism: Code(s): E03.9 - Hypothyroidism, unspecified Qualifiers: Hypothyroidism type: postoperative Qualified Code(s): E89.0 - Postprocedural hypothyroidism Plan: Management as per above. Telehealth Telehealth Location of provider rendering services: practice address Location of patient: address on file Patient Identification confirmed using: Name, : Yes Telehealth method: voice only Patient verbally consented to treatment: Yes Patient verbally consented to billing insurance company: Yes Patient informed of any privacy concerns related to visit: Yes Coding Level of Care Code Tele Est Pt Level 3 (95461) Diagnoses Thyroid cancer C73 Hypothyroidism E89.0 Hypothyroidism type: postoperative
== END ==
PROVIDERS: PCP Internal Medicine; Visit Provider Internal Medicine
DX: C73 Malignant neoplasm of thyroid gland (principal); E89.0 Postprocedural hypothyroidism
CPT/HCPCS: 99213

== ENCOUNTER 2023-05-15 06:35 | Outpatient (REF) | payer OTHER, SELFPAY ==
[2023-05-15 08:03] LABS: Free T4 (Free Thyroxine) 0.85 ng/dL (0.71-1.85); Thyroid Stimulating Hormone 57.59 uIU/mL (0.32-4.0)
[2023-05-17 03:14] LABS: Triiodothyronine T3 Total 66 ng/dL (76-181)
[2023-05-29 17:38] LABS: Thyroglobulin Antibody 2 IU/mL (<=1); Thyroglobulin LC/MS/MS <0.4 ng/mL (Athyrotic: <0)
== END 2023-05-15 06:36 | disposition home or self-care (01) ==
LOC: HO.LAB 06:35
PROVIDERS: PCP Internal Medicine; Visit Provider Internal Medicine
DX: C73 Malignant neoplasm of thyroid gland (principal)
CPT/HCPCS: 36415; 84432; 84439; 84443; 84480; 86800

== ENCOUNTER 2023-05-22 12:09 | Outpatient (REF) | payer OTHER, SELFPAY ==
[2023-05-22 14:27] LABS: Free T4 (Free Thyroxine) 1.17 ng/dL (0.71-1.85); Thyroid Stimulating Hormone 5.23 uIU/mL (0.32-4.0)
[2023-06-02 11:39] LABS: Thyroglobulin Antibody 3 IU/mL (<=1); Thyroglobulin LC/MS/MS <0.4 ng/mL (Athyrotic: <0)
== END 2023-05-22 12:10 | disposition home or self-care (01) ==
LOC: HO.10HDL 12:09
PROVIDERS: Visit Provider Internal Medicine
DX: C73 Malignant neoplasm of thyroid gland (principal)
CPT/HCPCS: 36415; 84432; 84439; 84443; 86800

== ENCOUNTER 2023-06-05 14:13 | Outpatient (AMB) | payer OTHER, SELFPAY ==
--- NOTE | 2023-06-05 14:15 | A.OFFVIS_ITS ---
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[employer] Required: No Accompanied by: Self / Same As Patient Allergies drospirenone [From SHAQ 28] Allergy (Unknown, Verified 06/05/23 14:23) SWELLING ethinyl estradiol [From SHAQ 28] Allergy (Unknown, Verified 06/05/23 14:23) SWELLING naproxen [From NAPROSYN] Allergy (Unknown, Verified 06/05/23 14:23) SWELLING sulfamethoxazole [From BACTRIM] Allergy (Unknown, Verified 06/05/23 14:23) RASH trimethoprim [From BACTRIM] Allergy (Unknown, Verified 06/05/23 14:23) RASH adhesive tape Allergy (Unknown, Uncoded 05/13/23 14:04) Unknown uti antibiotic Allergy (Unknown, Uncoded 05/13/23 14:04) Unknown Medication List - Last Reconciled 06/05/23 by Rosas Lemon MD cholecalciferol (vitamin D3) 50 mcg PO DAILY cyanocobalamin (vitamin B-12) 500 mcg PO DAILY fluticasone propionate 50 mcg/actuation (Flonase Allergy Relief) 1 spray intranasal DAILY PRN ibuprofen 600 mg PO Q6H PRN ipratropium-albuterol 20-100 mcg/actuation (Combivent Respimat) 1 puff inhalation QID levothyroxine 200 mcg PO DAILY 30 days vitamin A palmitate 6,000 mcg (2 x 3,000 mcg (10,000 unit)) PO DAILY 2 weeks HPI HPI Comments History of Present Illness Details 43 YO Female with PMHx 1.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 Patient last saw Dr. Pastrana on 05/13/2023 Review of records reveals that patient has a history of papillary thyroid cancer that was diagnosed in October of 2013. She is status post total thyroidectomy which was completed October of 2013 at [facility] in [place]. Pathology revealed a 1.6 x 1.2x 1.3 cm left-sided PTC with 5% of cells tall cell variant. There was additionally multifocal microscopic foci of PTC within the R lobe, but no perithyroidal extension was identified. This was stage 1, PT1PN0. Surgery was completed at [facility] in [place] and she later received I- 131 ablation 35 millicurries at [facility] on 02/27/14. Her well logging mud analysis captain was Dr. Roque at that time. She later followed up with [facility] in December of 2017. Labs have revealed persistently elevated thyroglobulin antibodies. She did have a whole body scan completed 02/22/14 with report reading LEI uptake in the thyroid bed consistent with metastatic disease if this patient is status post complete thyroidectomy. No distant metastatic deposits are identified. She received her I131 remnant ablation with 35 millicurries just after this. She did have an ultrasound of the neck completed 10/05/2017 which did reveal multiple enlarged cervical lymph nodes. She does report that she had biopsy of 1 lymph node in the past and that this was negative for malignancy. We repeated thyrogen stimulated WBS 03/25/19 which revealed persistent uptake within the thyroid bed, and also faint uptake within the R neck concerning for lymph node mets. TSH checked at that time was 144.62, with TG level of 0.2, with positive TG antibodies of 5. She had US soft tissue head and neck 02/21/19 which revealed multiple bilateral enlarged lymph nodes, including a L level 3 complex appearing 1.9 cm lymph node. She did have FNA biopsy of the enlarged R level II, R level IV, R level V and L level III lymph nodes. All were negative for carcinoma. TG washout was negative in all but the R level II lymph node, where no TG washout was sent. She was poorly compliant with her thyroid hormone medicaton prior to our visit 03/21/2020. TSH was approximately 12 at that time. She was counseled on the importance of compliance and from 03/21/2020 she had been compliant with Levothyroxine 175 mcg PO daily. She notified me of 04/30/2020 and her dose of Levothyroxine was increased to 200 mcg PO daily. She reported good compliance with this. Labs 06/04/2020 reveal TSH of 0.22 with FT4 by dialysis of 2.1. Labs then repeated Oct 2020 revealed elevated FT4 and TT3, so her dose of Levothyroxine was decreased to 150 mcg PO daily, but then increased again to 175 mcg PO daily. She had thyrogen stimulated labs completed 11/21/2020 which revealed a TSH of 91.16 with a TG of 0.3 and TG antibodies of 6. She unfortunately suffered a miscarriage and then began fertility treatments. She was able to succesfully conceive, and now has a 5 week old healthy baby boy. Her dose of levothyroxine was increased to 175 mcg PO 5 days per week, with 2 tabs 2 days per week at the time of conception. She has elected to defer any further WBS or any I131 treatment until after childbearing is complete. She did undergo a repeat US of the head and neck 10/30/2020 which revealed persistent lymphadenopathy. This was repeated 05/21/2021 and revealed 3 abnormal appearing cervical lymph nodes, a R level IB 1.1 cm, R level IB 0.8 cm, and a R level IA 0.3 cm lymph node. She underwent FNA biopsy of her R level IB 1.1 cm cervical lymph node 06/05/2021 with no evidence of metastatic carcinoma identified. She had multiple additional enlarged lymph nodes noted bilaterally, but these all had normal morphology. She now has completed childbearing and has had a tubal ligation. She also has completed . She remains on levothyroxine 200 mcg PO daily now. She underwent an I131 WBS 05/08/2023 with results revealing only physiologic uptake. TSH was >100. Stimulated TG levels are pending at this time. US Soft Tissue Head and Neck: 05/21/2021 FINDINGS: THYROID BED: Prior thyroidectomy. No residual thyroid tissue demonstrated in the thyroid bed. No cystic or solid nodules demonstrated in the thyroid bed. There are numerous normal-appearing lymph nodes seen bilaterally RIGHT NECK SOFT TISSUES: Scattered lymph nodes are present. Some appear normal with normal fatty clefts and smooth margins without cortical thickening or lobulation. A few are abnormal and will be listed. The largest nodes are as follows: Level 3: 2.2 x 0.6 x 0.6 cm.? Normal nicole architecture Level 3: 1.9 x 0.7 x 1.4 cm.? Normal nicole architecture. Cortical thickness of 2.5 mm. There is an abnormal right level 1B lymph node that was not previously seen measuring 5 x 5 x 5 mm in size. It is rounded in appearance without fatty hilum identified. There is an abnormal lymph node seen within level 1B measuring 1.1 x 0.5 x 0.9 cm in size with a nodular irish ex. There is normal fatty cleft present and no cortical thickening. There is an abnormal lymph node seen at level 1B which is essentially stable in size to previous study measuring 8 x 6 x 8 mm in size with some cortical nodularity but without significant change from prior study. Fatty hilum present. There is an abnormal-appearing lymph node level IA measuring 3 x 2 x 3 mm in size which is smaller than on prior study where it measured 5 x 4 x 5 mm in size. LEFT NECK SOFT TISSUES: Scattered architecturally normal nodes are present. The nodes show normal fatty hilus, normal cortical thickness, and no cystic change or calcification. No abnormal color flow. The largest nodes are as follows: Level 3: 1.1 x 0.3 x 0.8 cm.? Normal nicole architecture. This was not noted on previous study. Level 3: 1.3 x 0.5 x 0.6 cm.? Normal nicole architecture. This has enlarged and previously was 1.3 x 0.5 x 0.6 cm in size. Level 1B: 1.5 x 0.5 x 1.2 cm in size compared to previous study where it measured 1.2 x 0.6 x 0.9 cm in size. Normal nicole architecture. There are 3 other lymph nodes that were not seen on prior study: One within level 2 measuring 5 x 2 x 5 mm in size. This has normal architecture. Another is in level 3 measuring 1.1 x 0.3 x 0.8 cm in size. This has normal architecture. The third is in segment 5A measuring 6 x 4 x 5 mm in size with normal architecture. Labs: Laboratory Tests 05/05/23 11:05 TSH > 100.00 H Free T4 < 0.42 L [facility] Medical History Hypothyroidism Thyroid cancer Vitamin D deficiency Surgical History S/P gastric sleeve procedure Hx of section Hx of dilation and curettage Hx of thyroidectomy Family History Father Asthma Hypertension Mother Hypertension Social History Alcohol intake: current Alcohol intake frequency: holidays/special occasions only Patient Tobacco Use Status: Never used Tobacco Physical Exam Vital Signs: Last Vital Signs Pulse 80 06/05/23 14:21 BP 136/92 H 06/05/23 14:21 BMI result Body Mass Index 44.2 Const Other: Healed scar status post thyroidectomy. 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 Recent thyroglobulin undetected with stimulation and total body scan did not show any evidence of avid disease in neck or elsewhere. She is currently being treated with levothyroxine 200 mcg QD Plan is to recheck TSH and free T4 in 6 weeks time and adjust levothyroxine accordingly. . Will change generic levothyroxine to branded Synthroid 200 mcg. willl order neck ultrasound. To better assess for abnormal lymph nodes. If there are abnormal lymph nodes on neck ultrasound, could consider referral to Dr. Tata Naidu [facility] Orders: Orders Free T4 (Free Thyroxine) 6 Weeks C73 - Malignant neoplasm of thyroid gland Thyroid Stimulating Hormone 6 Weeks C73 - Malignant neoplasm of thyroid gland US thyroid Today C73 - Malignant neoplasm of thyroid gland Medications: New Synthroid (levothyroxine) 200 mcg PO DAILY 30 tabs 5RF NS Discontinued levothyroxine Discontinued Reason: Doctor's Order 200 mcg PO DAILY 30 days 30 tabs 3RF Coding Level of Care Code Est Pt Level 3 (97122) Diagnoses Thyroid cancer C73
[2023-06-05 14:21] VITALS: BP 136/92; PULSE 80; BMI 44.2
== END 2023-06-05 15:23 | disposition home or self-care (01) ==
PROVIDERS: PCP Internal Medicine; Visit Provider Internal Medicine Endocrinology, Diabetes & Metabolism
DX: C73 Malignant neoplasm of thyroid gland (principal)
CPT/HCPCS: 99213

== ENCOUNTER → 2023-06-05 14:13 | Outpatient (BNVA) | payer OTHER, SELFPAY | PROVIDERS: PCP Internal Medicine; Visit Provider Internal Medicine Endocrinology, Diabetes & Metabolism | DX: C73 Malignant neoplasm of thyroid gland (principal) | CPT/HCPCS: 99212 ==

== ENCOUNTER 2023-06-19 15:45 | Outpatient (REF) | payer OTHER, SELFPAY ==
--- NOTE | ~2023-06-19 | US_ITS ---
EXAMINATION: US SOFT TISSUE OF THE NECK CLINICAL INFORMATION: Malignant neoplasm of thyroid gland. COMPARISON: Soft tissue neck ultrasound 05/21/2021. TECHNIQUE: Linear transducer grayscale and color Doppler examination of the thyroid bed and surrounding soft tissue. FINDINGS: Thyroidectomy. Bilateral thyroidectomy beds appear normal. Imaged cervical lymph nodes: Right upper: 1.7 x 0.6 x 1.0 cm with preserved fatty hilum. Right lower: 1.8 x 0.6 x 0.5 cm with preserved fatty hilum. Left mid: 1.4 x 0.7 x 0.7 cm with preserved fatty hilum. US/US thyroid IMPRESSION: Normal-appearing bilateral cervical lymph nodes. It is difficult to compare individual nodes between studies but there has likely been no significant change compared to soft tissue neck ultrasound 05/21/2021.
== END 2023-06-19 15:46 | disposition home or self-care (01) ==
LOC: HO.US 15:45
PROVIDERS: PCP Internal Medicine; Visit Provider Internal Medicine Endocrinology, Diabetes & Metabolism
DX: C73 Malignant neoplasm of thyroid gland (principal)
CPT/HCPCS: 76536

== ENCOUNTER → 2023-09-21 09:48 | Outpatient (BNVA) | payer OTHER, SELFPAY | PROVIDERS: PCP Internal Medicine; Visit Provider Physician Assistant Surgical ==

== ENCOUNTER 2023-10-12 08:09 | Outpatient (AMB) | payer OTHER, SELFPAY ==
--- NOTE | 2023-10-12 12:01 | A.OFFVIS_ITS ---
Intake VS Expanded 10/12/23 12:17 Height 5 ft 1 in Weight 235 lb 8 oz BMI 44.5 Body Fat % 48.7 Body Fat Mass 114.8 Fat Free Mass 120.8 Visceral Fat Rating 15 Body Water % 36.7 Body Water Mass 86.4 Basal Metabolic Rate/Score 1,728 Intake Visit Reasons: TV Re-Est Revision SWL BMI 44.6 *SEE COMMENTS* Allergies drospirenone [From SHAQ 28] Allergy (Unknown, Verified 10/12/23 12:05) SWELLING ethinyl estradiol [From SHAQ 28] Allergy (Unknown, Verified 10/12/23 12:05) SWELLING naproxen [From NAPROSYN] Allergy (Unknown, Verified 10/12/23 12:05) SWELLING sulfamethoxazole [From BACTRIM] Allergy (Unknown, Verified 10/12/23 12:05) RASH trimethoprim [From BACTRIM] Allergy (Unknown, Verified 10/12/23 12:05) RASH adhesive tape Allergy (Unknown, Uncoded 10/12/23 12:05) Unknown uti antibiotic Allergy (Unknown, Uncoded 10/12/23 12:05) Unknown Medication List - Last Reconciled 10/12/23 by Miguel Angel Solis MD cholecalciferol (vitamin D3) 50 mcg PO DAILY cyanocobalamin (vitamin B-12) 500 mcg PO DAILY fluticasone propionate 50 mcg/actuation (Flonase Allergy Relief) 1 spray intranasal DAILY PRN ipratropium-albuterol 20-100 mcg/actuation (Combivent Respimat) 1 puff inhalation QID Synthroid (levothyroxine) 200 mcg PO DAILY NS vitamin A palmitate 6,000 mcg (2 x 3,000 mcg (10,000 unit)) PO DAILY 2 weeks HPI TV Re-Est Revision SWL BMI 44.6 *SEE COMMENTS* HPI Details Start time: 11.45am, End time: 12.40pm ?I spent 45 minutes speaking with the patient on the phone plus an additional 10 minutes reviewing and updating records for a total of 55 minutes HPI Comments History of Present Illness Details Previous weight loss efforts: lap band and sleeve gastrectromy Wakes up: 6am, Sleeps: 10pm Breakfast: 8.30am (eggs) Lunch: 1pm (left over as dinner) Dinner: 5.30pm (rice, beans and chicken, fish) Snacks: 10.30am (cookies, fruit, or yogurt) Exercise: none Fluids: Coffee 1 cup/day (milk and sugar), tea: none, soda: regular Coke 2/wk, juice: none, ETOH: 2/month PFSH Medical History Vitamin D deficiency Hypothyroidism Thyroid cancer Surgical History S/P gastric sleeve procedure Hx of section Hx of dilation and curettage Hx of thyroidectomy Family History Father Asthma Hypertension Mother Hypertension Social History Alcohol intake: current Alcohol intake frequency: holidays/special occasions only Patient Tobacco Use Status: Never used Tobacco Assessment & Plan Assessment & Plan (1) Morbid obesity: Code(s): E66.01 - Morbid (severe) obesity due to excess calories Plan: 1.? Plan for lap sleeve gastrectomy revision. If diaphragmatic or ventral hernias are present at time of surgery, these will be repaired laparoscopically as well. Risks and complications were discussed in detail including possible conversion to an open procedure, anastomotic leak, bleeding requiring transfusion, small bowel obstruction, , DVT and pulmonary embolism, cardiac, or pulmonary complications, as ferry terminal agent complications such as anastomotic ulcer, insufficient weight loss and vitamin deficiencies. I emphasized the importance of close follow-up, adherence to instructions and good communication. 2. Nutritional counseling. Start with 2 CELEBRATE REBUILD protein (buy at [facility]) shakes (ONE scoop EACH in 8oz low fat unsweetened almond milk each) at 7am-9am and 10am-12pm, 2 protein bars (CELEBRATE protein bars, buy at [facility]) at 1pm-3pm and 4pm-6pm, dinner at 7pm (6 forks of protein and 6 forks of salad/vegetables) AND another HALF protein bar after dinner at 9pm-10pm. So you do 2 protein shakes, 2.5 protein bars and one meal per day. Meal to include lean meat (beef, fish, pork, turkey, chicken), or armenian yogurt, or egg whites, or beans with a salad with olive oil and fruits (berries, pears, apples, kiwi). Avoid salt, breads, potatoes, rice, pasta, desserts. 3. Each shake would be drunk slowly, like coffee in a period of 2 hours. You may add your coffee into your shakes, if flavors match. 4. Cut each bar in 4 pieces and eat each piece in 30min ?to make each bar last 2 hours. 5. I emphasized the importance of measuring accurately the food portion and measure it when serving the food in plate 6. The meal portions include 6 full-size forks of meat and 6 full-size forks of salad. You always eat the meat portion but you can replace up to 6 forks for salad/vegetables with rice, potatoes or pasta, or a fruit ?if you like. The less you do it the better weight loss will be. 7. One full-size fork is what it can be scooped on the fork without falling aside and not what can be bit with the fork. Use regular forks like those you find in a typical restaurant. 8.? Please send me weight measurements as soon as possible and then once a week. Always include your diet and exercise plan. 9. Start walking outside daily, tracking calories with a goal of 300 calories per day, daily. Goal is to burn 2000 calories per week on exercise, which means either 300 calories daily, or 400 calories 5 days per week, or 500 calories 4 days per week, or 650 calories 3 days per week. 10. The best choice would be to purchase a stationary bike, elliptical or treadmill at home that can track calories. Let me know if you do so I can give you an exercise plan. 11.?It is important of avoiding and for at least 18 months postoperatively and has been discussed at the infosession. 12. Goal is to lose at least 1.5-2lbs per week 13. Goal to lose 10% of your weight before surgery, which is about 24lbs. Ultimate weight goal: 211lbs before surgery 14. Please follow the diet plan exactly without any change. If you don't like something about the plan or you feel hungry you need to communicate with me so I can help you revise the plan. You should not change the plan yourself. Orders: Orders Insulin Today E66.01 - Morbid (severe) obesity due to excess calories, J45.909 - Unspecified asthma, uncomplicated, Z90.3 - Acquired absence of stomach [part of] H Pylori Breath Test Today E66.01 - Morbid (severe) obesity due to excess calories, J45.909 - Unspecified asthma, uncomplicated, Z90.3 - Acquired absence of stomach [part of] Complete Blood Count Auto Diff Today E66.01 - Morbid (severe) obesity due to excess calories, J45.909 - Unspecified asthma, uncomplicated, Z90.3 - Acquired absence of stomach [part of] Vitamin B12 and Folate Today E66.01 - Morbid (severe) obesity due to excess calories, J45.909 - Unspecified asthma, uncomplicated, Z90.3 - Acquired absence of stomach [part of] C Reactive Protein Today E66.01 - Morbid (severe) obesity due to excess calories, J45.909 - Unspecified asthma, uncomplicated, Z90.3 - Acquired absence of stomach [part of] Vitamin A Today E66.01 - Morbid (severe) obesity due to excess calories, J45.909 - Unspecified asthma, uncomplicated, Z90.3 - Acquired absence of stomach [part of] TSH reflex Free T4 Today E66.01 - Morbid (severe) obesity due to excess calories, J45.909 - Unspecified asthma, uncomplicated, Z90.3 - Acquired absence of stomach [part of] Ferritin Today E66.01 - Morbid (severe) obesity due to excess calories, J45.909 - Unspecified asthma, uncomplicated, Z90.3 - Acquired absence of stomach [part of] Vitamin D 25-OH Total Today E66.01 - Morbid (severe) obesity due to excess calories, J45.909 - Unspecified asthma, uncomplicated, Z90.3 - Acquired absence of stomach [part of] Hemoglobin A1c Today E66.01 - Morbid (severe) obesity due to excess calories, J45.909 - Unspecified asthma, uncomplicated, Z90.3 - Acquired absence of stomach [part of] Lipid Panel Today E66.01 - Morbid (severe) obesity due to excess calories, J45.909 - Unspecified asthma, uncomplicated, Z90.3 - Acquired absence of stomach [part of] IRON PROFILE Today E66.01 - Morbid (severe) obesity due to excess calories, J45.909 - Unspecified asthma, uncomplicated, Z90.3 - Acquired absence of stomach [part of] Comprehensive Met. Panel Today E66.01 - Morbid (severe) obesity due to excess calories, J45.909 - Unspecified asthma, uncomplicated, Z90.3 - Acquired absence of stomach [part of] Zinc Today E66.01 - Morbid (severe) obesity due to excess calories, J45.909 - Unspecified asthma, uncomplicated, Z90.3 - Acquired absence of stomach [part of] Vitamin B1 Today E66.01 - Morbid (severe) obesity due to excess calories, J45.909 - Unspecified asthma, uncomplicated, Z90.3 - Acquired absence of stomach [part of] US abdomen comp w elastography Today E66.01 - Morbid (severe) obesity due to excess calories, J45.909 - Unspecified asthma, uncomplicated, Z90.3 - Acquired absence of stomach [part of] XR chest 2V Today E66.01 - Morbid (severe) obesity due to excess calories, J45.909 - Unspecified asthma, uncomplicated, Z90.3 - Acquired absence of stomach [part of] ECG 12 lead EKG Today E66.01 - Morbid (severe) obesity due to excess calories, J45.909 - Unspecified asthma, uncomplicated, Z90.3 - Acquired absence of stomach [part of] Referrals Behavioral Health Referral E66.01 - Morbid (severe) obesity due to excess calories, J45.909 - Unspecified asthma, uncomplicated, Z90.3 - Acquired absence of stomach [part of] Nutrition/Dietitian Referral E66.01 - Morbid (severe) obesity due to excess calories, J45.909 - Unspecified asthma, uncomplicated, Z90.3 - Acquired absence of stomach [part of] Telehealth Telehealth Location of provider rendering services: practice address Location of patient: address on file Patient Identification confirmed using: Name, : Yes Telehealth method: voice only Patient verbally consented to treatment: Yes Patient verbally consented to billing insurance company: Yes Patient informed of any privacy concerns related to visit: Yes Minutes spent on Phone/Video with Pt.: 55 Coding Level of Care Code Tele [facility] Pt Level 4 (62628) Diagnoses Morbid obesity E66.01 Time Spent (min) 55
[2023-10-12 12:17] VITALS: BMI 44.5
== END 2023-10-12 13:25 | disposition home or self-care (01) ==
PROVIDERS: PCP Internal Medicine; Visit Provider Surgery
DX: E66.01 Morbid (severe) obesity due to excess calories (principal); Z68.41 Body mass index [BMI] 40.0-44.9, adult
CPT/HCPCS: 99204

== ENCOUNTER → 2023-10-12 08:09 | Outpatient (BNVA) | payer OTHER, SELFPAY | PROVIDERS: PCP Internal Medicine; Visit Provider Surgery ==

== ENCOUNTER 2023-10-19 06:09 | Outpatient (REF) | payer OTHER, SELFPAY ==
--- NOTE | ~2023-10-19 | XR_ITS ---
EXAMINATION: XR CHEST CLINICAL INFORMATION: Morbid (severe) obesity due to excess calories COMPARISON: None available. TECHNIQUE: 2 views of the chest were obtained. FINDINGS: No significant abnormality is noted involving the heart, lungs, mediastinum, bony thorax or soft tissues. XR/XR chest 2V IMPRESSION: Unremarkable examination.
[2023-10-19 06:26] LABS: MANUAL DIFF FLAG NO
[2023-10-19 08:03] LABS: Eosinophils Absolute Auto 0.1 X10*3/uL (0.0-0.4); Eosinophils Percent Auto 3.6 % (0-4); Hematocrit 40.5 % (37.0-47.0); Hemoglobin 13.4 g/dl (12.0-16.0); Imm Gran Abs Auto 0.01 X10*3/uL (0.00-0.03); Imm Gran Pct Auto 0.3 % (0.0-0.4); Lymphocytes Absolute Auto 1.6 X10*3/uL (1.2-4.9); Mean Corpuscular HGB Conc 33.1 g/dl (31.0-35.0); Mean Corpuscular Hemoglobin 28.6 pg (27.0-33.0); Mean Corpuscular Volume 86.4 fL (80.0-98.0); Mean Platelet Volume 12.9 fL (9.4-12.3); Monocytes Absolute Auto 0.5 X10*3/uL (0.1-1.2); Monocytes Percent Auto 12.3 % (2-11); Neutrophils Absolute Auto 1.6 x10*3/uL (2.0-8.3); Neutrophils Percent Auto 41.8 % (45-73); Platelet Count 148 X10*3/uL (160-400); Red Blood Count 4.69 X10*6/uL (4.20-5.50); Red Cell Distribution Width 15.7 % (11.0-16.0); White Blood Count 3.9 X10*3/uL (4.8-10.8)
[2023-10-19 08:11] LABS: Estimated Average Glucose 94 mg/dL; Hemoglobin A1c % 4.9 % (<6.0)
[2023-10-19 08:38] LABS: Alanine Aminotransferase 11 U/L (0-31); Albumin Level 3.9 g/dL (3.5-5.0); Alkaline Phosphatase 51 U/L (39-117); Anion Gap 11 (12-20); Aspartate Amino Transferase 15 U/L (5-31); Bilirubin Total 0.8 mg/dL (0.0-1.0); Blood Urea Nitrogen 21 mg/dL (9-16); C Reactive Protein 0.16 mg/dL (< or = 0.50); Calcium 8.6 mg/dL (8.4-10.2); Carbon Dioxide 19 mmol/L (22-29); Chloride 113 mmol/L (96-108); Cholesterol 134 mg/dL (<200); Estimated Glomerular Filt Rate > 60; Glucose Random 78 mg/dL (60-115); HDL Cholesterol 70 mg/dL (>40); Iron 89 mcg/dL (30-160); LDL Cholesterol Calculated 57 mg/dL (<100); Percent Iron Saturation 32 % (15-50); Potassium 4.1 mmol/L (3.3-5.1); Sodium 139 mmol/L (135-145); Total Iron Binding Capacity 280 mcg/dL (228-428); Total Protein 6.9 g/dL (6.5-8.0); Triglycerides 36 mg/dL (<150); Unsaturated Iron Binding 191 ug/dL
[2023-10-19 09:04] LABS: Folate 7.8 ng/mL (> or = 4.0); Vitamin B12 511 pg/mL (200-900)
[2023-10-19 09:06] LABS: Ferritin 15 ng/mL (10-250); TSH reflex Free T4 3.27 uIU/mL (0.32-4.0); Vitamin D 25-OH Total 21.8 ng/mL (>30)
[2023-10-19 09:35] LABS: Insulin 5 uU/mL (2-29)
--- NOTE | 2023-10-19 13:09 | ECG_ITS ---
Test Reason : morbid obesity Blood Pressure : / mmHG Vent. Rate : 070 BPM Atrial Rate : 070 BPM P-R Int : 140 ms QRS Dur : 094 ms QT Int : 384 ms P-R-T Axes : 040 022 023 degrees QTc Int : 414 ms Normal sinus rhythm Nonspecific T wave abnormality Abnormal ECG When compared with ECG of 06-SEP-2022 01:19, No significant change was found Referred By: Miguel Angel Solis Electronically Signed By:Saroj Rodas
[2023-10-22 00:43] LABS: Zinc 65 mcg/dL (60-130)
[2023-10-22 17:12] LABS: Vitamin A 23 mcg/dL (38-98)
[2023-10-25 15:49] LABS: Vitamin B1 10 nmol/L (8-30)
== END 2023-10-19 06:10 | disposition home or self-care (01) ==
LOC: HO.LAB 06:09
PROVIDERS: PCP Internal Medicine; Visit Provider Surgery
DX: E66.01 Morbid (severe) obesity due to excess calories (principal); J45.909 Unspecified asthma, uncomplicated; Z90.3 Acquired absence of stomach [part of]
CPT/HCPCS: 36415; 71046; 80053; 80061; 82306; 82607; 82728; 82746; 83036; 83525; 83540; 84425; 84443; 84590; 84630; 85025; 86140; 93005

== ENCOUNTER 2023-10-19 09:14 | Outpatient (AMB) | payer OTHER, SELFPAY ==
--- NOTE | 2023-10-19 08:47 | A.OFFWM_ITS ---
Intake Intake Visit Reasons: VIDEO BH Intake Allergies drospirenone [From SHAQ 28] Allergy (Unknown, Verified 10/12/23 12:05) SWELLING ethinyl estradiol [From SHAQ 28] Allergy (Unknown, Verified 10/12/23 12:05) SWELLING naproxen [From NAPROSYN] Allergy (Unknown, Verified 10/12/23 12:05) SWELLING sulfamethoxazole [From BACTRIM] Allergy (Unknown, Verified 10/12/23 12:05) RASH trimethoprim [From BACTRIM] Allergy (Unknown, Verified 10/12/23 12:05) RASH adhesive tape Allergy (Unknown, Uncoded 10/12/23 12:05) Unknown uti antibiotic Allergy (Unknown, Uncoded 10/12/23 12:05) Unknown PFSH Medical History Hypothyroidism Thyroid cancer Vitamin D deficiency Surgical History S/P gastric sleeve procedure Hx of section Hx of dilation and curettage Hx of thyroidectomy Family History Father Asthma Hypertension Mother Hypertension Social History Alcohol intake: current Alcohol intake frequency: holidays/special occasions only Patient Tobacco Use Status: Never used Tobacco Behavioral Health Assessment Weight Management Therapy Therapy Notes Details Pt is looking to have weight loss surgery revision due to weight gain, joint pain, and low energy. She is not in therapy and has never been. She denied any mental health history. Pt reported no hx of problems with drugs or alcohol. Presenting Concerns Referral Source provider Reason for referral weight loss surgery evaluation Precipitating Event obesity weight gain Living Situation Current Living Situation Relative's/Guardian's [place] At risk of losing current housing? No Satisfied with current living situation? Yes Comments Patient lives with her 2 year old son and her parents live downstairs. She rent her apartment from them. Food/Weight/Diet Expectations of change weight loss and maintenance History/Relationship with food Pt stated that she will snack when she is stressed on sweets. She will have eggs, toast, or cracker for breakfast sometimes skipping, grilled cheese, mac and cheese, chicken, rice for lunch, same for dinner, rice, meat, veggies. also will graze during the day. History/Relationship with weight Pt stated that she has struggled with her weight for her whole life. Even in childhood after age 9. History/Relationship with dieting 2018 gastric sleeve at [facility] 275lbs >180 lbs ( for about one year). Past year and a half she has been 235lbs. Binge Eating Do you frequently eat large amounts of food in short periods of time, not feeling physically hungry? No Do you feel out of control when you eat a large amount of food in a short period of time? No Do you eat large amounts of food rapidly and typically alone? Yes Night Eating Do you wake up at least once during the night to eat? No If you wake up in the night, do you find that it is necessary to eat something in order to fall back asleep? No Do you have little or no appetite in the morning and feel very hungry in the evening, often overeating between dinner and when you go to bed? No Social History Family history and relationship Pt was born and raised in [place] by her parents and two siblings. She moved here at age 16. Pt is single and has a two year old with her ex that co parents with her. 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 none Education Preferred learning style Auditory, Verbal, Written, Learn by doing and Visual Currently enrolled in educational program? No Interested in further educational program? 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 No Meaningful activities walking, spending time with her son Financial Situation Financial assistance? None Service Service? No Mental Health and Addiction Treatment Current/Past substance abuse? No Medications Is the patient compliant with medications? Yes Does the patient have [place] Guardian in place? Not applicable Does the patient use complimentary health approaches? No Questionnaires PHQ-9 Over the last 2 weeks, how often have you been bothered by any of the following problems? 1. Little interest or pleasure in doing things: more than half the days 2. Feeling down, depressed, or hopeless: more than half the days 3. Trouble falling or staying asleep, or sleeping too much: nearly every day 4. Feeling tired or having little energy: several days 5. Poor appetite or overeating: more than half the days 6. Feeling bad about yourself - or that you are a failure or have let yourself or your family down: more than half the days 7. Trouble concentrating on things, such as reading the newspaper or watching television: not at all 8. Moving or speaking so slowly that other people could have noticed. Or the opposite - being so fidgety or restless that you have been moving around a lot more than usual: not at all 9. Thoughts that you would be better off or of hurting yourself in some way: not at all Total score: 12 Source: Developed by Drs. Rosas Taylor, Marita Coe, Ralph Owen and colleagues, with an educational claudia from [employer]. Binge Eating Scale Group 1 A. I don't feel self-conscious about my wt. or body size when I'm with others. B. I feel concerned about how I look to others, but it normally does not make me fell disappointed with myself C. I do get self-conscious about my appearance and wt. which makes me feel disappointed in myself. D. I feel very self-conscious about my wt. and frequently I feel intense shame and disgust for myself. I try to avoid social contacts because of my self- consciousness. Response Group 1: B Group 2 A. I don't have any difficulty eating slowly in the proper manner. B. Although I seem to gobble down foods, I don't end up feeling stuffed because of eating to much. C. At times, I tend to eat quickly and then, I feel uncomfortably full afterwards. D. I have the habit of bolting down my food, without really chewing it. When this happens I usually feel uncomfortably stuffed because I've eaten to much. Response Group 2: C Group 3 A. I feel capable to control my eating urges when I want to. B. I feel like I have failed to control my eating more than the average person. C. I feel utterly helpless when it comes to feeling in control of my eating urges. D. Because I feel so helpless about controlling my eating I have become very desperate about trying to get control. Response Group 3: A Group 4 A. I don't have the habit of eating when I'm bored. B. I sometimes eat when I'm bored, but often I'm able to get busy and get my mind off food. C. I have a regular habit of eating when I'm bored, but occasionally, I can use some other activity to get my mind off eating. D. I have a strong habit of eating when I'm bored. Nothing seems to help me breath the habit. Response Group 4: C Group 5 A. I'm usually physically hungry when I eat something. B. Occasionally, I eat something on impulse even though I really am not hungry. C. I have the regular habit of eating foods, that I might not really enjoy, to satisfy a hungry feeling even though physically, I don't need the food. D. Although I'm not physically hungry, I get a hungry feeling in my mouth that only seems to be satisfied when I eat a food, like sandwich, that fills my mouth. Sometimes, when I eat the food to satisfy my mouth hunger, I then spit the food out so I won't gain weight. Response Group 5: B Group 6 A. I don't feel any guilt or self-hate after I overeat. B. After I overeat, occasionally I feel guilt or self-hate. C. Almost all the time I experience strong guilt or self-hate after I overeat. Response Group 6: C Group 7 A. I don't lose total control of my eating when dieting even after periods when I overeat. B. Sometimes when I eat a forbidden food on a diet, I feel like I blew it and eat even more. C. Frequently, I have the habit of saying to myself, I've blown it now, why not go all the way, when I overeat on a diet. When that happens I eat more. D. I have a regular habit of starting a strict diets for myself but I break the diets by going on an eating binge. My life seems to be either a feast or famine. Response Group 7: A Group 8 A. I rarely eat so much food that I feel uncomfortably stuffed afterwards. B. Usually about once a month, I each such a quantity of food, I end up feeling very stuffed. C. I have regular periods during the month when I eat large amounts of food, either at mealtime or at snacks. D. I eat so much food that I regularly feel quite uncomfortable after eating and sometimes a bit nauseous. Response Group 8: D Group 9 A. My level of calorie intake does not go up very high or go down very low on a regular basis. B. Sometimes after I overeat, I will try to reduce my caloric intake to almost nothing to compensate for the excess calories I've eaten. C. I have a regular habit of overeating during the night. It seems that my routine is not to be hungry in the morning but overeat in the evening. D. In my adult years, I have had week-long periods where I practically starve myself. This follows periods when I overeat. It seems I live a life of either feast or famine. Response Group 9: D Group 10 A. I usually am able to stop eating when I want to. I know when enough is enough. B. Every so often, I experience a compulsion to eat which I can't seem to control. C. Frequently, I experience strong urges to eat which I seem unable to control, but at other times I can control my eating urges. D. I feel incapable of controlling urges to eat. I have a fear of not being able to stop eating voluntarily. Response Group 10: C Group 11 A. I don't have any problem stopping eating when I feel full. B. I usually can stop eating when I feel full but occasionally overeat leaving me feeling uncomfortably stuffed. C. I have a problem stopping eating once I start and usually I feel uncomfortably stuffed after I eat a meal. D. Because I have a problem not being able to stop eating when I want, I sometimes have to induce vomiting to relieve my stuffed feeling. Response Group 11: A Group 12 A. I seem to eat just as much when I'm with others, Family social gatherings as when I'm by myself. B. Sometimes, when I'm with other persons, I don't eat as much as I want to eat because I'm self-conscious about my eating. C. Frequently, I eat only a small amount of food when others are present, because I'm very embarrassed about my eating. D. I feel so ashamed about overeating that I pick times to overeat when I know no one will see me. I feel like a closet eater. Response Group 12: A Group 13 A. I eat three meals a day with only an occasional between meal snack. B. I eat 3 meals a day, but I also normally snack between meals. C. When I am snacking heavily, I get in the habit of skipping regular meals. D. There are regular periods when I seem to be continually eating, with no planned meals. Response Group 13: B Group 14 A. I don't think much about trying to control unwanted eating urges. B. At least some of the time, I feel my thoughts are pre-occupied with trying to control my eating urges. C. I feel that frequently I spend much time thinking about how much I ate or about trying not to eat anymore. D. It seems to me that most of my waking hours are pre-occupied by thoughts about eating or not eating. I feel like I'm constantly struggling not to eat. Response Group 14: C Group 15 A. I don't think about food a great deal. B. I have strong craving for food but they last only for brief periods of time. C. I have days when I can't seem to think about anything else but food. D. Most of my days seem to be pre-occupied with thoughts about food. I feel like I live to eat. Response Group 15: B Group 16 A. I usually know whether or not I'm physically hungry. I take the right portion of food to satisfy me. B. Occasionally, I feel uncertain about knowing whether or not I'm physically hungry. A these times it's hard to know how much food I should take to satisfy me. C. Even though I might know how many calories I should eat, I don't have any idea what is a normal amount of food for me. Response Group 16: B Binge Eating Score: 21 Score less than 17 Minimal Risk Score between 18-26 Moderate Risk Score between 27-46 High Risk Assessment & Plan Assessment & Plan (1) Dysthymia: Code(s): F34.1 - Dysthymic disorder (2) Morbid obesity: Code(s): E66.01 - Morbid (severe) obesity due to excess calories Plan Patient has not started plan yet. will be this week. She was tearful in talking about raising her son and feeling the pressures of needing to be with him 30/03 because of what she went through to have him. We discussed self care, planned time for the gym, and using her supports such as his father and her parents. She has no serious mental health issues reported. She would like to be seen again. Coding Level of Care Code Tele [facility] ([id number]) Diagnoses Dysthymia F34.1 Morbid obesity E66.01 Time Spent (min) 45
== END 2023-10-19 09:37 | disposition home or self-care (01) ==
LOC: HO.HBST 09:14
PROVIDERS: PCP Internal Medicine; Visit Provider Counselor Mental Health
DX: F34.1 Dysthymic disorder (principal); E66.01 Morbid (severe) obesity due to excess calories
CPT/HCPCS: 90791

== ENCOUNTER → 2023-10-19 13:09 | Outpatient (BNV) | payer OTHER, SELFPAY | PROVIDERS: PCP Internal Medicine; Visit Provider Internal Medicine Cardiovascular Disease | DX: E66.01 Morbid (severe) obesity due to excess calories (principal); R94.31 Abnormal electrocardiogram [ECG] [EKG] | CPT/HCPCS: 93010 ==

== ENCOUNTER 2023-10-21 08:41 | Day surgery (SDC) | payer OTHER, SELFPAY ==
[2023-10-19 08:49] VITALS: BMI 44.4
--- NOTE | 2023-10-20 09:57 | HO.ANESPROP2 ---
Documented by User: Glenis Giraldo NP 10/20/23 09:58 HPI - Anesthesia Eval Consult details Narrative: 43yo F for Upper Endoscopy PMFSH Active Problems Active Problems: All Active Problems (Updated 10/19/23 @ 09:27 by Sachi Olson) Dysthymia (Acute) S/P gastric sleeve procedure (Acute) Asthma (Acute) Morbid obesity (Acute) Vitamin D deficiency (Acute) Hypothyroidism (Acute) Thyroid cancer (Acute) Past Medical History Medical History Vitamin D deficiency Hypothyroidism Thyroid cancer Family History Family History Father Asthma Hypertension Mother Hypertension Surgical History Surgical History S/P gastric sleeve procedure Hx of section Hx of dilation and curettage Hx of thyroidectomy Social History Social History Alcohol intake: current Alcohol intake frequency: holidays/special occasions only Patient Tobacco Use Status: Never used Tobacco Use of substances other than those prescribed or required for medical reasons: No Are you DNR?: No Advance Directives: No Advance Directives Information Provided: Yes Meds Allergies Allergy/AdvReac Type Severity Reaction Status Date / Time drospirenone [From SHAQ 28] Allergy Unknown SWELLING Verified 10/12/23 12:05 ethinyl estradiol Allergy Unknown SWELLING Verified 10/12/23 12:05 [From SHAQ 28] naproxen [From NAPROSYN] Allergy Unknown SWELLING Verified 10/12/23 12:05 sulfamethoxazole Allergy Unknown RASH Verified 10/12/23 12:05 [From BACTRIM] trimethoprim [From BACTRIM] Allergy Unknown RASH Verified 10/12/23 12:05 adhesive tape Allergy Unknown Unknown Uncoded 10/12/23 12:05 Home Medications Medication Instructions Recorded Confirmed Last Taken Type ipratropium 20 mcg-albuterol 100 1 puff inhalation QID PRN sob 06/11/20 10/21/23 Unknown History mcg/actuation mist for inhalation (Combivent Respimat) fluticasone propionate 50 1 spray intranasal DAILY PRN nasal 10/15/20 10/21/23 Unknown History mcg/actuation nasal congestion spray,suspension (Flonase Allergy Relief) cyanocobalamin (vitamin B-12) 500 500 mcg PO DAILY 12/30/21 10/21/23 Unknown History mcg tablet Exam Height,Weight and Vital Signs: Height 5 ft 1 in Weight 106.594 kg Pertinent Lab Results Pertinent Lab Results: Laboratory Tests 10/19/23 06:24 WBC 3.9 L Hgb 13.4 Hct 40.5 Plt Count 148 L Sodium 139 Potassium 4.1 Chloride 113 H Carbon Dioxide 19 L BUN 21 H Creatinine 0.70 Narrative Narrative: EKG 10/2022 Vent. Rate : 070 BPM Atrial Rate : 070 BPM P-R Int : 140 ms QRS Dur : 094 ms QT Int : 384 ms P-R-T Axes : 040 022 023 degrees QTc Int : 414 ms Normal sinus rhythm Nonspecific T wave abnormality Abnormal ECG When compared with ECG of 06-SEP-2022 01:19, No significant change was found Assessment and Plan Assessment Anesthesia Assessment: Chart Reviewed Documented by User: Katie Oneil MD 10/21/23 09:46 [facility] Past Medical History Medical History Vitamin D deficiency Hypothyroidism Thyroid cancer Family History Family History Father Asthma Hypertension Mother Hypertension Surgical History Surgical History S/P gastric sleeve procedure Hx of section Hx of dilation and curettage Hx of thyroidectomy History of Problems with Anesthesia: No Social History Social History Alcohol intake: current Alcohol intake frequency: holidays/special occasions only Patient Tobacco Use Status: Never used Tobacco Use of substances other than those prescribed or required for medical reasons: No Are you DNR?: No Advance Directives: No Advance Directives Information Provided: Yes Meds Allergies Allergy/AdvReac Type Severity Reaction Status Date / Time drospirenone [From SHAQ 28] Allergy Unknown SWELLING Verified 10/12/23 12:05 ethinyl estradiol Allergy Unknown SWELLING Verified 10/12/23 12:05 [From SHAQ 28] naproxen [From NAPROSYN] Allergy Unknown SWELLING Verified 10/12/23 12:05 sulfamethoxazole Allergy Unknown RASH Verified 10/12/23 12:05 [From BACTRIM] trimethoprim [From BACTRIM] Allergy Unknown RASH Verified 10/12/23 12:05 adhesive tape Allergy Unknown Unknown Uncoded 10/12/23 12:05 Home Medications Medication Instructions Recorded Confirmed Last Taken Type ipratropium 20 mcg-albuterol 100 1 puff inhalation QID PRN sob 06/11/20 10/21/23 Unknown History mcg/actuation mist for inhalation (Combivent Respimat) fluticasone propionate 50 1 spray intranasal DAILY PRN nasal 10/15/20 10/21/23 Unknown History mcg/actuation nasal congestion spray,suspension (Flonase Allergy Relief) cyanocobalamin (vitamin B-12) 500 500 mcg PO DAILY 12/30/21 10/21/23 Unknown History mcg tablet Exam Airway Mallampati Class: II TM Dist: >3cm Neck ROM: Full Loose/Missing/Broken Teeth: No Heart: RRR Lungs: CTA Assessment and Plan Assessment Anesthesia Assessment: Anesthesia Plan Discussed Final Anesthetic Review History of Problems with Anesthesia: No NPO: Yes ASA Class: III Final Preanesthetic Review: Meds/Allgs Chart Reviewed, Consent Obtained/Reviewed and Anes Risks/Benef Reviewed Patient Risk: Intermediate Procedure Risk: Intermediate Anesthetic Plan Anesthetic Plan: MAC: Disposition: Standard PACU
[2023-10-21 09:15] VITALS: BMI 46.1
[2023-10-21 09:27] VITALS: BP 114/77; PULSE 82; RESP 16; TEMP 37.4; O2SAT 98
[2023-10-21 09:28] LABS: UPreg QC Valid YES; Urine Pregnancy NEGATIVE (NEGATIVE)
[2023-10-21] MEDS: Lactated Ringers 1,000 ML 100 ML IVCONT (09:37)
--- NOTE | 2023-10-21 10:23 | MHC.SHP ---
Pre-Procedural Eval Section A - 24 Hr Update-Section A only Date of Service: 10/21/23 The patient is an INPATIENT: No The patient has been examined within 24 hours of the surgical procedure. The History & Physical has been completed within 30 days and I have reviewed it.: Yes Section B - Complete if H&P > 30 days Chief Complaint: Obesity, unspecified Relevant Family History (Specify if Yes): No Relevant Social History: None Present Medications: None Medical History: No relevant PMH History of Previous Operations: Relevant previous surgery/procedure and date(s) (s/p laparoscopic sleeve gastrectomy) Allergies: Allergies Allergy/AdvReac Type Severity Reaction Status Date / Time drospirenone [From SHAQ 28] Allergy Unknown SWELLING Verified 10/12/23 12:05 ethinyl estradiol Allergy Unknown SWELLING Verified 10/12/23 12:05 [From SHAQ 28] naproxen [From NAPROSYN] Allergy Unknown SWELLING Verified 10/12/23 12:05 sulfamethoxazole Allergy Unknown RASH Verified 10/12/23 12:05 [From BACTRIM] trimethoprim [From BACTRIM] Allergy Unknown RASH Verified 10/12/23 12:05 adhesive tape Allergy Unknown Unknown Uncoded 10/12/23 12:05 Review of Systems Sugical H&P ROS: Negative: Constitution, Cardiovascular, Respiratory, Neurological, Psychiatric, Hem-Onc, Allergic/Immunologic, Gastrointestinal, Genitourinary, Musculoskeletal, Integumentary, Endocrine and Eyes/Ears/Nose/Throat Exam Surgical H&P Exam: Normal: HEENT, Normal: Heart, Normal: Lungs, Normal: Extremities, Normal: Abdomen, Normal: Skin and Normal: Neurological Plan Diagnosis/Plan: Unchanged (EGD to assess the anatomy of the sleeve. Risks and complications were discussed with the patient in advance including bleeding and perforation.) I have reviewed the history and physical and performed a pertinent physical examination on my patient. No changes have occurred unless specified. Time Spent With Patient Time: Total time managing care of this patient today ____ minutes.
--- NOTE | 2023-10-21 10:24 | PM.OP ---
Brief Operative Note Date of Service: 10/21/23 Pre-op diagnosis: Obesity, s/p sleeve gastrectomy Post-op diagnosis: same (1) Small hiatal hernia, 2) redundancy proximal sleeve) Procedure: PROCEDURE DATE: 10/21/2023 PREOPERATIVE DIAGNOSIS: Obesity s/p sleeve gastrectomy POSTOPERATIVE DIAGNOSIS: ?Same as above. 1) small hiatal hernia, 2) redundancy proximal sleeve, 3) esophagitis II PROCEDURE: Oxpnocyy-jilrci-[id number] with biopsies Surgeon: ?Charbel Solis M.D.. Ph.D. Precision Grinder External: None ? Anesthesia: IV sedation Estimated blood loss: ?Minimal FINDINGS AND PROCEDURE: ? OPERATIVE INDICATIONS: ?The patient is a 43 year old female known to me who underwent a laparoscopic sleeve gastrectomy. The patient had inadequate weight loss so far and she is interested in a surgical revision of the previous bariatric peocedure.?Based on this information I recommended an upper endoscopy to evaluate the patient's symptoms. Risks and complications of the surgery were discussed with the patient in advance particularly the possibility of perforation or bleeding that may require surgical intervention. The patient understood the risks and was in agreement with the plan. ? PROCEDURE: After informed consent was obtained by the patient, the patient was ?transferred to the Operating Room and was placed in the supine position.? After successful induction of IV sedation, a mouth block was inserted and the patient was placed in the left lateral decubitus position. An upper endoscopy was performed next, the oropharynx and esophagus appeared within the normal limits. There was a small 2-3cm hiatal hernia. The z-line was irregular with tongues of gastric mucosa protruding into the esophagus in less than 50% circumference. Two biopsies were obtained from the distal esohagus 2-3 cm proximal to the GE junction and two additional biopsies from the GE junction. The GE junction was at 34cm and hiatus at 37cm. The sleeve was entered. There was a proximal chamber with mild redundancy ending in a mild narrowing at 39cm from incisisors. The scope could pass through easily. There was no gastritis at distal antrum. There was no ulcer. Biopsies were obtained from the proximal sleeve as well as the distal antrum. No significant bleeding was noted from any of the biopsy sites. The scope was then advanced into the duodenum which appeared to be normal as well. At that point the duodenum ?and the sleeve were decompressed and the scope was withdrawn from the patient's mouth. The patient extubated and was transferred in stable condition to the Recovery Room for further care. I was present and performed all steps of the procedure. There were no residents to assist with this case. Charbel Solis M.D., Ph.D. Surgeon: Miguel Angel Solis MD Anesthesia: MAC Was an Precision Grinder External used for this Procedure?: No Estimated blood loss (mL): 0 IV fluids (mL): 400 Urine output (mL): 0 Pathology: other ( 1) antrum x1, 2) proximal sleeve/gastric fundus x1, 3) EGJ x2, 4) distal esophagus x2) Condition: stable Disposition: PACU
[2023-10-21 11:37] VITALS: BP 118/83; PULSE 79; RESP 18; TEMP 36.6; O2SAT 100
[2023-10-21 11:52] VITALS: BP 136/88; PULSE 72; RESP 18; O2SAT 97
[2023-10-21 12:07] VITALS: BP 140/89; PULSE 86; RESP 18; TEMP 36.6; O2SAT 98
[2023-10-21 12:22] VITALS: BP 126/82; PULSE 75; RESP 16; TEMP 36.6; O2SAT 98
== END 2023-10-21 13:07 | disposition home or self-care (01) ==
PROVIDERS: Nurse Practitioner; PCP Internal Medicine; Visit Provider Surgery
PROC: 0DJ08ZZ Inspection of Upper Intestinal Tract, Via Natural or Artificial Opening Endoscopic (ICD-10-PCS; CPT 43235; principal; 2023-10-21 10:50)
DX: K95.89 Other complications of other bariatric procedure (principal); K20.80 Other esophagitis without bleeding; K22.89 Other specified disease of esophagus; E66.01 Morbid (severe) obesity due to excess calories; Z68.42 Body mass index [BMI] 45.0-49.9, adult; J45.909 Unspecified asthma, uncomplicated; Z98.84 Bariatric surgery status; Z90.3 Acquired absence of stomach [part of]; K44.9 Diaphragmatic hernia without obstruction or gangrene; E89.0 Postprocedural hypothyroidism; Z85.850 Personal history of malignant neoplasm of thyroid; E55.9 Vitamin D deficiency, unspecified; Z79.899 Other long term (current) drug therapy; Z79.51 Long term (current) use of inhaled steroids; Z88.8 Allergy status to other drugs, medicaments and biological substances; Z88.2 Allergy status to sulfonamides; Z91.040 Latex allergy status
CPT/HCPCS: 43239; 81025; 88305; 88313; 88342; J1596; J2250; J2704

== ENCOUNTER → 2023-10-21 08:41 | Outpatient (BNV) | payer OTHER, SELFPAY | PROVIDERS: PCP Internal Medicine; Visit Provider Surgery | DX: K95.89 Other complications of other bariatric procedure (principal); Z90.3 Acquired absence of stomach [part of]; K20.80 Other esophagitis without bleeding | CPT/HCPCS: 43239 ==

== ENCOUNTER 2023-10-30 13:16 | Outpatient (AMB) | payer OTHER, SELFPAY ==
--- NOTE | 2023-10-30 13:06 | A.OFFVIS_ITS ---
Intake Intake Visit Reasons: VIDEO Initial Nutrition [facility] Finance Mgr Required: No Allergies drospirenone [From SHAQ 28] Allergy (Unknown, Verified 10/12/23 12:05) SWELLING ethinyl estradiol [From SHAQ 28] Allergy (Unknown, Verified 10/12/23 12:05) SWELLING naproxen [From NAPROSYN] Allergy (Unknown, Verified 10/12/23 12:05) SWELLING sulfamethoxazole [From BACTRIM] Allergy (Unknown, Verified 10/12/23 12:05) RASH trimethoprim [From BACTRIM] Allergy (Unknown, Verified 10/12/23 12:05) RASH adhesive tape Allergy (Unknown, Uncoded 10/12/23 12:05) Unknown HPI Nutrition Presentation Details Current weight 231# Reason for consult elevated BMI Diet Assmnt Details Pt reports she is doing well with the program.she fagan no concerns or questions today. she is following Dr. pink nutrition plan. having 2 shakes, 2 bars, and a dinner meal - usually chicken or beef and a vegetable, really content with this Exercise: walking 4x per week 30 mins [facility] online classes: completed, reviewed Dietary counseling reduction Who buys your food self Who prepares/cooks your food self Meal frequency regular: breakfast (coffee w milk and sugar ), lunch (1pm rice, beans, chicken), dinner and snacks (mid afternoon and 3pm - fruit) Lifestyle Eating out 1-3 times/week Food frequency Fruit: daily, Vegetables: daily, Grains/pasta/breads/cereal (carbs): daily, Meats/poultry/fish (protein): daily, Meat substi tutes/nuts/seeds/legumes: daily, Processed foods/meats: several times weekly, Restaurants/fast foods: several times weekly, Water: daily, Soda: never, Juice: never and Coffee: daily Diagnosis Nutrition problem #1 overweight/obesity As related to (etiology) #1 excess energy intake and physical inactivity As evidenced by (sign/symptom) #1 high BMI Monitoring/Goals Nutrition problem monitoring total energy intake, level of knowledge/skill, total PRO intake, total CHO intake, weight and oral fluids Outcome progress progressing Learning/Education Readiness to learn good Stages of change action Educational materials provided Yes Most Recent Diabetes Results: Cholesterol 134 mg/dL (<200) 10/19/23 HDL Cholesterol 70 mg/dL (>40) 10/19/23 Triglycerides 36 mg/dL (<150) 10/19/23 Creatinine 0.70 mg/dL (0.5-1.4) 10/19/23 Blood Urea Nitrogen 21 mg/dL (9-16) H 10/19/23 Sodium 139 mmol/L (135-145) 10/19/23 Potassium 4.1 mmol/L (3.3-5.1) 10/19/23 Chloride 113 mmol/L (96-108) H 10/19/23 Carbon Dioxide 19 mmol/L (22-29) L 10/19/23 Calcium 8.6 mg/dL (8.4-10.2) 10/19/23 AST 15 U/L (5-31) 10/19/23 ALT 11 U/L (0-31) 10/19/23 Total Protein 6.9 g/dL (6.5-8.0) 10/19/23 Albumin 3.9 g/dL (3.5-5.0) 10/19/23 [facility] Medical History Vitamin D deficiency Hypothyroidism Thyroid cancer Surgical History S/P gastric sleeve procedure Hx of section Hx of dilation and curettage Hx of thyroidectomy Family History Father Asthma Hypertension Mother Hypertension Social History Alcohol intake: current Alcohol intake frequency: holidays/special occasions only Patient Tobacco Use Status: Never used Tobacco Assessment & Plan Assessment & Plan (1) Morbid obesity: Code(s): E66.01 - Morbid (severe) obesity due to excess calories Plan Patient is cleared from a nutrition standpoint for bariatric surgery. Educational requirements have been completed. Reviewed vitamin supplementation and commitment to protein shake for several months post surgery. Encouraged communication with office as needed Telehealth Telehealth Location of provider rendering services: practice address Location of patient: address on file Patient Identification confirmed using: Name, : Yes Telehealth method: video Patient verbally consented to treatment: Yes Patient verbally consented to billing insurance company: Yes Patient informed of any privacy concerns related to visit: Yes Minutes spent on Phone/Video with Pt.: 20 Coding Level of Care Code Nutr Indiv Intake (44693) Diagnoses Morbid obesity E66.01 Time Spent (min) 20
== END 2023-10-30 13:32 | disposition home or self-care (01) ==
LOC: HO.HBS 13:16
PROVIDERS: PCP Internal Medicine; Visit Provider Dietitian, Registered
DX: E66.01 Morbid (severe) obesity due to excess calories (principal)

== ENCOUNTER → 2023-10-30 13:16 | Outpatient (BNVA) | payer OTHER, SELFPAY | PROVIDERS: PCP Internal Medicine; Visit Provider Dietitian, Registered | DX: E66.01 Morbid (severe) obesity due to excess calories (principal) | CPT/HCPCS: 97802 ==

== ENCOUNTER 2023-11-03 08:13 | Outpatient (REF) | payer OTHER, SELFPAY ==
--- NOTE | ~2023-11-03 | US_ITS ---
EXAMINATION: US COMPLETE ABDOMEN WITH LIVER ELASTOGRAPHY CLINICAL INFORMATION: Morbid obesity. COMPARISON: None available. TECHNIQUE: Real-time imaging of the abdominal viscera. Noninvasive ultrasound liver fibrosis assessment is performed using John ElastPQ point quantification shear wave elastography (2D-SWE) with a C5-2 MHz transducer. Multiple elastography samples are obtained. FINDINGS: PANCREAS: Normal. The visualized pancreatic head and body are normal in appearance. The remainder of the pancreas is obscured from visualization by the overlying bowel gas. ABDOMINAL AORTA: The proximal, middle, and distal aortic segments are normal in caliber. INFERIOR VENA CAVA: Visualized portions are normal. LIVER: The liver demonstrates normal size, contour and generally increased echogenicity. No focal lesion or intrahepatic biliary duct dilatation. The right lobe measures 15.7 cm in length. The left lobe measures 9.5 cm in length. Portal flow is towards the liver (hepatopetal). Shear wave liver elastography median stiffness is 1.53 m/s (reference: normal median stiffness is 1.3 m/s or less). IQR/median stiffness to assess sampling precision is 0.10 (reference: good quality data set is IQR/median stiffness of 0.15 or less). GALLBLADDER: Normal. The gallbladder is physiologically distended without evidence of stones, sludge, polyps, wall thickening or pericholecystic fluid. COMMON BILE DUCT: Normal in caliber measuring 0.3 cm in diameter. RIGHT KIDNEY: Normal. No hydronephrosis. No renal calculi or focal parenchymal lesions. The kidney measures 11.7 cm in maximum dimension. LEFT KIDNEY: Normal. No hydronephrosis. No renal calculi or focal parenchymal lesions. The kidney measures 12.7 cm in maximum dimension. SPLEEN: No focal finding. The spleen measures 14.2 cm in maximum dimension. FREE FLUID: None. US/US abdomen comp w elastography IMPRESSION: 1. There is generalized increase in hepatic echotexture, consistent with fatty infiltration or hepatocellular disease. Please correlate clinically. No focal hepatic mass or intrahepatic biliary dilatation is seen. 2. Liver elastography: In the absence of other known clinical signs, measurements rule out compensated advanced chronic liver disease. If there are known clinical signs, further testing may be needed for confirmation. 3. There is mild splenomegaly. REFERENCE: Society of Radiologists in Ultrasound Liver Stiffness Thresholds (2020): LIVER STIFFNESS THRESHOLDS: *Liver Stiffness equal or less than 1.3 m/s: High probability of being normal. *Liver Stiffness less than 1.7 m/s: In the absence of other known clinical signs, rules out compensated advanced chronic liver disease. *Liver Stiffness 1.7-2.1 m/s: Suggestive of compensated advanced chronic liver disease but need further test for confirmation. *Liver Stiffness over 2.1 m/s: Rules in compensated advanced chronic liver disease. *Liver Stiffness over 2.4 m/s: Suggestive of clinically significant portal hypertension. QUALITY OF DATA SET: *IQR/Median value equal or less than 0.15 implies a quality data set. *IQR/Median value over 0.15 implies a poor quality data set. SIGNIFICANT CHANGE FROM PRIOR EXAM: Significant change if liver stiffness measurement is 10% or greater from prior exam. OTHER CONSIDERATIONS: The stage of liver fibrosis may be overestimated in the setting of acute hepatitis, liver inflammation, elevated liver function tests, hepatic vascular congestion, obstructive cholestasis, non-fasting state, and infiltrative diseases such as amyloidosis and lymphoma. In some patients with NAFLD, the liver stiffness thresholds for compensated advanced chronic liver disease may be lower. In causes other than viral hepatitis and NAFLD, liver stiffness thresholds are not well established.
== END 2023-11-03 08:14 | disposition home or self-care (01) ==
LOC: HO.US 08:13
PROVIDERS: PCP Internal Medicine; Visit Provider Surgery
DX: E66.01 Morbid (severe) obesity due to excess calories (principal); Z90.3 Acquired absence of stomach [part of]; J45.909 Unspecified asthma, uncomplicated
CPT/HCPCS: 76700; 76981

== ENCOUNTER 2023-11-06 08:12 | Outpatient (AMB) | payer OTHER, SELFPAY ==
--- NOTE | 2023-11-06 08:07 | MHC.OFFVISWM ---
Intake VS Expanded 11/06/23 08:14 Height 5 ft 1 in Weight 231 lb BMI 43.6 Body Fat % 38 Body Fat Mass 87.8 Fat Free Mass 143.2 Visceral Fat Rating 25 Body Water Mass 98.1 Basal Metabolic Rate/Score 1,766 Intake Visit Reasons: TV Follow Up SWL - 1ST Allergies drospirenone [From SHAQ 28] Allergy (Unknown, Verified 10/12/23 12:05) SWELLING ethinyl estradiol [From SHAQ 28] Allergy (Unknown, Verified 10/12/23 12:05) SWELLING naproxen [From NAPROSYN] Allergy (Unknown, Verified 10/12/23 12:05) SWELLING sulfamethoxazole [From BACTRIM] Allergy (Unknown, Verified 10/12/23 12:05) RASH trimethoprim [From BACTRIM] Allergy (Unknown, Verified 10/12/23 12:05) RASH adhesive tape Allergy (Unknown, Uncoded 10/12/23 12:05) Unknown HPI TV Follow Up SWL - HPI Details Start time: 8.00am, End time: 8.16am ?I spent 11 minutes speaking with the patient on the phone plus an additional 5 minutes reviewing and updating records for a total of 16 minutes HPI Comments History of Present Illness Details Overall weight loss: 4.8lbs, or 2% TBWL Is doing 2 Celebrate Rebuild protein shakes (1 scoop in 8oz almond milk), 2 Celebrate protein bars and one meal (6 forks of protein and 6 forks of vegetables). Exercise: is doing treadmill 5 days per week for 300 calories PFSH Medical History Vitamin D deficiency Hypothyroidism Thyroid cancer Surgical History S/P gastric sleeve procedure Hx of section Hx of dilation and curettage Hx of thyroidectomy Family History Father Asthma Hypertension Mother Hypertension Social History Alcohol intake: current Alcohol intake frequency: holidays/special occasions only Patient Tobacco Use Status: Never used Tobacco Assessment & Plan Assessment & Plan (1) Morbid obesity: Code(s): E66.01 - Morbid (severe) obesity due to excess calories Plan: 1. Continue same nutritional plan of 2 Celebrate Rebuild protein shakes (1 scoop in 8oz almond milk), 2 Celebrate protein bars and one meal (6 forks of protein and 6 forks of vegetables). 2. Exercise: continue treadmill 5 days per week but increase to 400 calories per work-out for a goal of 2000 calories per week 3. Continue to send me weight measurements weekly on Mondays Telehealth Telehealth Location of provider rendering services: practice address Location of patient: address on file Patient Identification confirmed using: Name, : Yes Telehealth method: voice only Patient verbally consented to treatment: Yes Patient verbally consented to billing insurance company: Yes Patient informed of any privacy concerns related to visit: Yes Minutes spent on Phone/Video with Pt.: 16 Coding Level of Care Code Tele Est Pt Level 2 (60918) Diagnoses Morbid obesity E66.01 Time Spent (min) 16
[2023-11-06 08:14] VITALS: BMI 43.6
== END 2023-11-06 08:16 | disposition home or self-care (01) ==
LOC: HO.HBS 08:13
PROVIDERS: PCP Internal Medicine; Visit Provider Surgery
DX: E66.01 Morbid (severe) obesity due to excess calories (principal)
CPT/HCPCS: 99212

== ENCOUNTER → 2023-11-06 08:12 | Outpatient (BNVA) | payer OTHER, SELFPAY | PROVIDERS: PCP Internal Medicine; Visit Provider Surgery ==

== ENCOUNTER 2023-11-09 11:04 | Outpatient (AMB) | payer OTHER, SELFPAY ==
--- NOTE | 2023-11-09 10:13 | A.OFFWM_ITS ---
Intake Intake Visit Reasons: VIDEO BH F/U Allergies drospirenone [From SHAQ 28] Allergy (Unknown, Verified 10/12/23 12:05) SWELLING ethinyl estradiol [From SHAQ 28] Allergy (Unknown, Verified 10/12/23 12:05) SWELLING naproxen [From NAPROSYN] Allergy (Unknown, Verified 10/12/23 12:05) SWELLING sulfamethoxazole [From BACTRIM] Allergy (Unknown, Verified 10/12/23 12:05) RASH trimethoprim [From BACTRIM] Allergy (Unknown, Verified 10/12/23 12:05) RASH adhesive tape Allergy (Unknown, Uncoded 10/12/23 12:05) Unknown PFSH Medical History Vitamin D deficiency Hypothyroidism Thyroid cancer Surgical History S/P gastric sleeve procedure Hx of section Hx of dilation and curettage Hx of thyroidectomy Family History Father Asthma Hypertension Mother Hypertension Social History Alcohol intake: current Alcohol intake frequency: holidays/special occasions only Patient Tobacco Use Status: Never used Tobacco Behavioral Health Assessment Weight Management Therapy Therapy Notes Details Pt is looking to have weight loss surgery revision due to weight gain, joint pain, and low energy. She is not in therapy and has never been. She denied any mental health history. Pt reported no hx of problems with drugs or alcohol. Presenting Concerns Referral Source provider Reason for referral weight loss surgery evaluation Precipitating Event obesity weight gain Living Situation Current Living Situation Relative's/Guardian's [place] At risk of losing current housing? No Satisfied with current living situation? Yes Comments Patient lives with her 2 year old son and her parents live downstairs. She rent her apartment from them. Food/Weight/Diet Expectations of change weight loss and maintenance History/Relationship with food Pt stated that she will snack when she is stressed on sweets. She will have eggs, toast, or cracker for breakfast sometimes skipping, grilled cheese, mac and cheese, chicken, rice for lunch, same for dinner, rice, meat, veggies. also will graze during the day. History/Relationship with weight Pt stated that she has struggled with her weight for her whole life. Even in childhood after age 9. History/Relationship with dieting 2018 gastric sleeve at [facility] [place] 275lbs >180 lbs ( for about one year). Past year and a half she has been 235lbs. Binge Eating Do you frequently eat large amounts of food in short periods of time, not feeling physically hungry? No Do you feel out of control when you eat a large amount of food in a short period of time? No Do you eat large amounts of food rapidly and typically alone? Yes Night Eating Do you wake up at least once during the night to eat? No If you wake up in the night, do you find that it is necessary to eat something in order to fall back asleep? No Do you have little or no appetite in the morning and feel very hungry in the evening, often overeating between dinner and when you go to bed? No Social History Family history and relationship Pt was born and raised in [place] by her parents and two siblings. She moved here at age 16. Pt is single and has a two year old with her ex that co parents with her. Parental/Familial well blower obligations 2 year old son Developmental history and status no issues reported Social support sister, brother, sister in law, parents Cultural/Ethnic information Legal Involvement and History Current or historical involvement with the legal system? none Education Preferred learning style Auditory, Verbal, Written, Learn by doing and Visual Currently enrolled in educational program? No Interested in further educational program? 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 Employment Employment Status [employer] Wants help to find employment? No Meaningful activities walking, spending time with her son Financial Situation Financial assistance? None Service Service? No Mental Health and Addiction Treatment Current/Past substance abuse? No Medications Is the patient compliant with medications? Yes Does the patient have Miller Guardian in place? Not applicable Does the patient use complimentary health approaches? No Questionnaires PHQ-9 Over the last 2 weeks, how often have you been bothered by any of the following problems? 1. Little interest or pleasure in doing things: several days 2. Feeling down, depressed, or hopeless: several days 3. Trouble falling or staying asleep, or sleeping too much: not at all 4. Feeling tired or having little energy: several days 5. Poor appetite or overeating: more than half the days 6. Feeling bad about yourself - or that you are a failure or have let yourself or your family down: more than half the days 7. Trouble concentrating on things, such as reading the newspaper or watching television: not at all 8. Moving or speaking so slowly that other people could have noticed. Or the opposite - being so fidgety or restless that you have been moving around a lot more than usual: not at all 9. Thoughts that you would be better off or of hurting yourself in some way: not at all Total score: 7 Source: Developed by Drs. Rosas Taylor, Marita Coe, Ralph Owen and colleagues, with an educational claudia from [employer]. Binge Eating Scale Group 1 A. I don't feel self-conscious about my wt. or body size when I'm with others. B. I feel concerned about how I look to others, but it normally does not make me fell disappointed with myself C. I do get self-conscious about my appearance and wt. which makes me feel disappointed in myself. D. I feel very self-conscious about my wt. and frequently I feel intense shame and disgust for myself. I try to avoid social contacts because of my self- consciousness. Response Group 1: B Group 2 A. I don't have any difficulty eating slowly in the proper manner. B. Although I seem to gobble down foods, I don't end up feeling stuffed because of eating to much. C. At times, I tend to eat quickly and then, I feel uncomfortably full afterwards. D. I have the habit of bolting down my food, without really chewing it. When this happens I usually feel uncomfortably stuffed because I've eaten to much. Response Group 2: C Group 3 A. I feel capable to control my eating urges when I want to. B. I feel like I have failed to control my eating more than the average person. C. I feel utterly helpless when it comes to feeling in control of my eating urges. D. Because I feel so helpless about controlling my eating I have become very d esperate about trying to get control. Response Group 3: A Group 4 A. I don't have the habit of eating when I'm bored. B. I sometimes eat when I'm bored, but often I'm able to get busy and get my mind off food. C. I have a regular habit of eating when I'm bored, but occasionally, I can use some other activity to get my mind off eating. D. I have a strong habit of eating when I'm bored. Nothing seems to help me breath the habit. Response Group 4: C Group 5 A. I'm usually physically hungry when I eat something. B. Occasionally, I eat something on impulse even though I really am not hungry. C. I have the regular habit of eating foods, that I might not really enjoy, to satisfy a hungry feeling even though physically, I don't need the food. D. Although I'm not physically hungry, I get a hungry feeling in my mouth that only seems to be satisfied when I eat a food, like sandwich, that fills my simeon th. Sometimes, when I eat the food to satisfy my mouth hunger, I then spit the food out so I won't gain weight. Response Group 5: B Group 6 A. I don't feel any guilt or self-hate after I overeat. B. After I overeat, occasionally I feel guilt or self-hate. C. Almost all the time I experience strong guilt or self-hate after I overeat. Response Group 6: C Group 7 A. I don't lose total control of my eating when dieting even after periods when I overeat. B. Sometimes when I eat a forbidden food on a diet, I feel like I blew it and eat even more. C. Frequently, I have the habit of saying to myself, I've blown it now, why not go all the way, when I overeat on a diet. When that happens I eat more. D. I have a regular habit of starting a strict diets for myself but I break the diets by going on an eating binge. My life seems to be either a feast or famine. Response Group 7: A Group 8 A. I rarely eat so much food that I feel uncomfortably stuffed afterwards. B. Usually about once a month, I each such a quantity of food, I end up feeling very stuffed. C. I have regular periods during the month when I eat large amounts of food, either at mealtime or at snacks. D. I eat so much food that I regularly feel quite uncomfortable after eating and sometimes a bit nauseous. Response Group 8: D Group 9 A. My level of calorie intake does not go up very high or go down very low on a regular basis. B. Sometimes after I overeat, I will try to reduce my caloric intake to almost nothing to compensate for the excess calories I've eaten. C. I have a regular habit of overeating during the night. It seems that my routine is not to be hungry in the morning but overeat in the evening. D. In my adult years, I have had week-long periods where I practically starve myself. This follows periods when I overeat. It seems I live a life of either feast or famine. Response Group 9: D Group 10 A. I usually am able to stop eating when I want to. I know when enough is enough. B. Every so often, I experience a compulsion to eat which I can't seem to control. C. Frequently, I experience strong urges to eat which I seem unable to control, but at other times I can control my eating urges. D. I feel incapable of controlling urges to eat. I have a fear of not being able to stop eating voluntarily. Response Group 10: C Group 11 A. I don't have any problem stopping eating when I feel full. B. I usually can stop eating when I feel full but occasionally overeat leaving me feeling uncomfortably stuffed. C. I have a problem stopping eating once I start and usually I feel uncomfortably stuffed after I eat a meal. D. Because I have a problem not being able to stop eating when I want, I sometimes have to induce vomiting to relieve my stuffed feeling. Response Group 11: A Group 12 A. I seem to eat just as much when I'm with others, Family social gatherings as when I'm by myself. B. Sometimes, when I'm with other persons, I don't eat as much as I want to eat because I'm self-conscious about my eating. C. Frequently, I eat only a small amount of food when others are present, because I'm very embarrassed about my eating. D. I feel so ashamed about overeating that I pick times to overeat when I know no one will see me. I feel like a closet eater. Response Group 12: A Group 13 A. I eat three meals a day with only an occasional between meal snack. B. I eat 3 meals a day, but I also normally snack between meals. C. When I am snacking heavily, I get in the habit of skipping regular meals. D. There are regular periods when I seem to be continually eating, with no planned meals. Response Group 13: B Group 14 A. I don't think much about trying to control unwanted eating urges. B. At least some of the time, I feel my thoughts are pre-occupied with trying to control my eating urges. C. I feel that frequently I spend much time thinking about how much I ate or about trying not to eat anymore. D. It seems to me that most of my waking hours are pre-occupied by thoughts about eating or not eating. I feel like I'm constantly struggling not to eat. Response Group 14: C Group 15 A. I don't think about food a great deal. B. I have strong craving for food but they last only for brief periods of time. C. I have days when I can't seem to think about anything else but food. D. Most of my days seem to be pre-occupied with thoughts about food. I feel like I live to eat. Response Group 15: B Group 16 A. I usually know whether or not I'm physically hungry. I take the right portion of food to satisfy me. B. Occasionally, I feel uncertain about knowing whether or not I'm physically hungry. A these times it's hard to know how much food I should take to satisfy me. C. Even though I might know how many calories I should eat, I don't have any idea what is a normal amount of food for me. Response Group 16: B Binge Eating Score: 21 Score less than 17 Minimal Risk Score between 18-26 Moderate Risk Score between 27-46 High Risk Assessment & Plan Assessment & Plan (1) Unspecified mental disorder due to known physiological condition: Code(s): F09 - Unspecified mental disorder due to known physiological condition (2) S/P gastric sleeve procedure: Comment: Crescencio Stone Code(s): Z90.3 - Acquired absence of stomach [part of] (3) Morbid obesity: Code(s): E66.01 - Morbid (severe) obesity due to excess calories Plan Patient has no serious mental health issues. She is cleared for surgery. Telehealth Telehealth Location of provider rendering services: other Location of patient: address on file Patient Identification confirmed using: Name, : Yes Telehealth method: voice only Patient verbally consented to treatment: Yes Patient verbally consented to billing insurance company: Yes Patient informed of any privacy concerns related to visit: Yes Minutes spent on Phone/Video with Pt.: 45 Coding Level of Care Code Tele Psy Diag Eval (25220) Diagnoses Unspecified mental disorder due to known physiological condition F09 S/P gastric sleeve procedure Z90.3 Morbid obesity E66.01 Time Spent (min) 45
== END 2023-11-09 12:00 ==
PROVIDERS: PCP Internal Medicine; Visit Provider Counselor Mental Health
DX: F09 Unspecified mental disorder due to known physiological condition (principal); Z90.3 Acquired absence of stomach [part of]; E66.01 Morbid (severe) obesity due to excess calories
CPT/HCPCS: 90791

== ENCOUNTER → 2023-11-09 11:04 | Outpatient (BNVA) | payer OTHER, SELFPAY | PROVIDERS: PCP Internal Medicine; Visit Provider Counselor Mental Health ==

== ENCOUNTER 2023-11-28 07:01 | Outpatient (REF) | payer OTHER, SELFPAY ==
[2023-11-28 08:33] LABS: Free T4 (Free Thyroxine) 1.01 ng/dL (0.71-1.85); HCG Quantitative < 2 mIU/mL; Thyroid Stimulating Hormone 3.53 uIU/mL (0.32-4.0)
== END 2023-11-28 07:02 | disposition home or self-care (01) ==
LOC: HO.LAB 07:01
PROVIDERS: Visit Provider Internal Medicine Endocrinology, Diabetes & Metabolism
DX: C73 Malignant neoplasm of thyroid gland (principal)
CPT/HCPCS: 36415; 84439; 84443; 84702

== ENCOUNTER 2023-12-02 10:38 | Outpatient (AMB) | payer OTHER, SELFPAY ==
--- NOTE | 2023-12-04 10:47 | A.OFFWM_ITS ---
Intake Intake Visit Reasons: (TV) BH F/U Allergies drospirenone [From SHAQ 28] Allergy (Unknown, Verified 12/03/23 15:21) SWELLING ethinyl estradiol [From SHAQ 28] Allergy (Unknown, Verified 12/03/23 15:21) SWELLING naproxen [From NAPROSYN] Allergy (Unknown, Verified 12/03/23 15:21) SWELLING sulfamethoxazole [From BACTRIM] Allergy (Unknown, Verified 12/03/23 15:21) RASH trimethoprim [From BACTRIM] Allergy (Unknown, Verified 12/03/23 15:21) RASH adhesive tape Allergy (Unknown, Uncoded 12/03/23 15:21) Unknown PFSH Medical History Vitamin D deficiency Hypothyroidism Thyroid cancer Surgical History S/P gastric sleeve procedure Hx of section Hx of dilation and curettage Hx of thyroidectomy Family History Father Asthma Hypertension Mother Hypertension Social History Alcohol intake: current Alcohol intake frequency: holidays/special occasions only Patient Tobacco Use Status: Never used Tobacco Behavioral Health Assessment Weight Management Therapy Therapy Notes Details Patient reported doing well no issues, she stated that the program is going well and has no struggles to report. increase in energy. Pt is looking to have weight loss surgery revision due to weight gain, joint pain, and low energy. She is not in therapy and has never been. She denied any mental health history. Pt reported no hx of problems with drugs or alcohol. Presenting Concerns Referral Source provider Reason for referral weight loss surgery evaluation Precipitating Event obesity weight gain Living Situation Current Living Situation Relative's/Guardian's [place] At risk of losing current housing? No Satisfied with current living situation? Yes Comments Patient lives with her 2 year old son and her parents live downstairs. She rent her apartment from them. Food/Weight/Diet Expectations of change weight loss and maintenance History/Relationship with food Pt stated that she will snack when she is stressed on sweets. She will have eggs, toast, or cracker for breakfast sometimes skipping, grilled cheese, mac and cheese, chicken, rice for lunch, same for dinner, rice, meat, veggies. also will graze during the day. History/Relationship with weight Pt stated that she has struggled with her weight for her whole life. Even in childhood after age 9. History/Relationship with dieting 2018 gastric sleeve at [facility] 275lbs >180 lbs ( for about one year). Past year and a half she has been 235lbs. Binge Eating Do you frequently eat large amounts of food in short periods of time, not feeling physically hungry? No Do you feel out of control when you eat a large amount of food in a short period of time? No Do you eat large amounts of food rapidly and typically alone? Yes Night Eating Do you wake up at least once during the night to eat? No If you wake up in the night, do you find that it is necessary to eat something in order to fall back asleep? No Do you have little or no appetite in the morning and feel very hungry in the evening, often overeating between dinner and when you go to bed? No Social History Family history and relationship Pt was born and raised in [place] by her parents and two siblings. She moved here at age 16. Pt is single and has a two year old with her ex that co parents with her. 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 none Education Preferred learning style Auditory, Verbal, Written, Learn by doing and Visual Currently enrolled in educational program? No Interested in further educational program? 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 No Meaningful activities walking, spending time with her son Financial Situation Financial assistance? None Service Service? No Mental Health and Addiction Treatment Current/Past substance abuse? No Medications Is the patient compliant with medications? Yes Does the patient have [facility] Guardian in place? Not applicable Does the patient use complimentary health approaches? No Assessment & Plan Assessment & Plan (1) Unspecified mental disorder due to known physiological condition: Code(s): F09 - Unspecified mental disorder due to known physiological condition (2) S/P gastric sleeve procedure: Comment: 2017 [facility] Code(s): Z90.3 - Acquired absence of stomach [part of] (3) Morbid obesity: Code(s): E66.01 - Morbid (severe) obesity due to excess calories Plan Patient has no serious mental health issues. She is cleared for surgery. Telehealth Telehealth Location of provider rendering services: other Location of patient: address on file Patient Identification confirmed using: Name, : Yes Telehealth method: voice only Patient verbally consented to treatment: Yes Patient verbally consented to billing insurance company: Yes Patient informed of any privacy concerns related to visit: Yes Minutes spent on Phone/Video with Pt.: 15 Coding Level of Care Code Tele Psytx 30 mins (58291) Diagnoses Unspecified mental disorder due to known physiological condition F09 S/P gastric sleeve procedure Z90.3 Morbid obesity E66.01 Time Spent (min) 15
== END 2023-12-04 10:47 | disposition home or self-care (01) ==
PROVIDERS: PCP Internal Medicine; Visit Provider Counselor Mental Health
DX: F09 Unspecified mental disorder due to known physiological condition (principal); Z90.3 Acquired absence of stomach [part of]; E66.01 Morbid (severe) obesity due to excess calories
CPT/HCPCS: 90832

== ENCOUNTER → 2023-12-02 10:38 | Outpatient (BNVA) | payer OTHER, SELFPAY | PROVIDERS: PCP Internal Medicine; Visit Provider Counselor Mental Health ==

== ENCOUNTER 2023-12-03 15:13 | Outpatient (AMB) | payer OTHER, SELFPAY ==
--- NOTE | 2023-12-03 15:16 | MHC.OFFVIS ---
Intake Vital Signs 12/03/23 15:17 Height 5 ft 1 in Weight 231 lb 7.766 oz BMI 43.7 BP 122/84 Blood Pressure Location Lt brachial Position Sitting Pulse 81 Pulse Source Pulse Oximeter Intake Visit Reasons: f/u thyroid cancer-confirmed Intake Note: Patient present today for Thyroid cancer follow up visit. Tobacco Stemmer Machine Required: No Accompanied by: Self / Same As Patient Allergies drospirenone [From SHAQ 28] Allergy (Unknown, Verified 12/03/23 15:21) SWELLING ethinyl estradiol [From SHAQ 28] Allergy (Unknown, Verified 12/03/23 15:21) SWELLING naproxen [From NAPROSYN] Allergy (Unknown, Verified 12/03/23 15:21) SWELLING sulfamethoxazole [From BACTRIM] Allergy (Unknown, Verified 12/03/23 15:21) RASH trimethoprim [From BACTRIM] Allergy (Unknown, Verified 12/03/23 15:21) RASH adhesive tape Allergy (Unknown, Uncoded 12/03/23 15:21) Unknown Medication List - Last Reconciled 12/03/23 by Rosas Lemon MD cholecalciferol (vitamin D3) 125 mcg PO DAILY cholecalciferol (vitamin D3) 50 mcg PO DAILY cyanocobalamin (vitamin B-12) 500 mcg PO DAILY fluticasone propionate 50 mcg/actuation (Flonase Allergy Relief) 1 spray intranasal DAILY PRN ipratropium-albuterol 20-100 mcg/actuation (Combivent Respimat) 1 puff inhalation QID PRN Synthroid (levothyroxine) 200 mcg PO DAILY NS vitamin A palmitate 6,000 mcg (2 x 3,000 mcg (10,000 unit)) PO DAILY 2 weeks vitamin A palmitate 10,000 units PO DAILY HPI HPI Comments History of Present Illness Details 43 YO Female with PMHx 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 Review of records reveals that patient has a history of papillary thyroid cancer that was diagnosed in October of 2013. She is status post total thyroidectomy which was completed October of 2013 at [facility] in [place]. Pathology revealed a 1.6 x 1.2x 1.3 cm left-sided PTC with 5% of cells tall cell variant. There was additionally multifocal microscopic foci of PTC within the R lobe, but no perithyroidal extension was identified. This was stage 1, PT1PN0. Surgery was completed at [facility] in [place] and she later received I-131 ablation 35 millicurries at [facility] on 02/27/14. Her inspector glass or mirror was Dr. Roque at that time. She later followed up with [facility] in December of 2017. Labs have revealed persistently elevated thyroglobulin antibodies. She did have a whole body scan completed 02/22/14 with report reading LEI uptake in the thyroid bed consistent with metastatic disease if this patient is status post complete thyroidectomy. No distant metastatic deposits are identified. She received her I131 remnant ablation with 35 millicurries just after this. She did have an ultrasound of the neck completed 10/05/2017 which did reveal multiple enlarged cervical lymph nodes. She does report that she had biopsy of 1 lymph node in the past and that this was negative for malignancy. We repeated thyrogen stimulated WBS 03/25/19 which revealed persistent uptake within the thyroid bed, and also faint uptake within the R neck concerning for lymph node mets. TSH checked at that time was 144.62, with TG level of 0.2, with positive TG antibodies of 5. She had US soft tissue head and neck 02/21/19 which revealed multiple bilateral enlarged lymph nodes, including a L level 3 complex appearing 1.9 cm lymph node. She did have FNA biopsy of the enlarged R level II, R level IV, R level V and L level III lymph nodes. All were negative for carcinoma. TG washout was negative in all but the R level II lymph node, where no TG washout was sent. She was poorly compliant with her thyroid hormone medicaton prior to our visit 03/21/2020. TSH was approximately 12 at that time. She was counseled on the importance of compliance and from 03/21/2020 she had been compliant with Levothyroxine 175 mcg PO daily. She notified me of 04/30/2020 and her dose of Levothyroxine was increased to 200 mcg PO daily. She reported good compliance with this. Labs 06/04/2020 reveal TSH of 0.22 with FT4 by dialysis of 2.1. Labs then repeated Oct 2020 revealed elevated FT4 and TT3, so her dose of Levothyroxine was decreased to 150 mcg PO daily, but then increased again to 175 mcg PO daily. She had thyrogen stimulated labs completed 11/21/2020 which revealed a TSH of 91.16 with a TG of 0.3 and TG antibodies of 6. She unfortunately suffered a miscarriage and then began fertility treatments. She was able to succesfully conceive, and now has a 5 week old healthy baby boy. Her dose of levothyroxine was increased to 175 mcg PO 5 days per week, with 2 tabs 2 days per week at the time of conception. She has elected to defer any further WBS or any I131 treatment until after childbearing is complete. She did undergo a repeat US of the head and neck 10/30/2020 which revealed persistent lymphadenopathy. This was repeated 05/21/2021 and revealed 3 abnormal appearing cervical lymph nodes, a R level IB 1.1 cm, R level IB 0.8 cm, and a R level IA 0.3 cm lymph node. She underwent FNA biopsy of her R level IB 1.1 cm cervical lymph node 06/05/2021 with no evidence of metastatic carcinoma identified. She had multiple additional enlarged lymph nodes noted bilaterally, but these all had normal morphology. She now has completed childbearing and has had a tubal ligation. She also has completed . She remains on levothyroxine (Synthroid) 200 mcg PO daily now. She underwent an I131 WBS 05/08/2023 with results revealing only physiologic uptake. TSH was >100. Stimulated TG levels are pending at this time. US Soft Tissue Head and Neck: 05/21/2021 FINDINGS: THYROID BED: Prior thyroidectomy. No residual thyroid tissue demonstrated in the thyroid bed. No cystic or solid nodules demonstrated in the thyroid bed. There are numerous normal-appearing lymph nodes seen bilaterally RIGHT NECK SOFT TISSUES: Scattered lymph nodes are present. Some appear normal with normal fatty clefts and smooth margins without cortical thickening or lobulation. A few are abnormal and will be listed. The largest nodes are as follows: Level 3: 2.2 x 0.6 x 0.6 cm.? Normal nicole architecture Level 3: 1.9 x 0.7 x 1.4 cm.? Normal nicole architecture. Cortical thickness of 2.5 mm. There is an abnormal right level 1B lymph node that was not previously seen measuring 5 x 5 x 5 mm in size. It is rounded in appearance without fatty hilum identified. There is an abnormal lymph node seen within level 1B measuring 1.1 x 0.5 x 0.9 cm in size with a nodular cortex. There is normal fatty cleft present and no cortical thickening. There is an abnormal lymph node seen at level 1B which is essentially stable in size to previous study measuring 8 x 6 x 8 mm in size with some cortical nodularity but without significant change from prior study. Fatty hilum present. There is an abnormal-appearing lymph node level IA measuring 3 x 2 x 3 mm in size which is smaller than on prior study where it measured 5 x 4 x 5 mm in size. LEFT NECK SOFT TISSUES: Scattered architecturally normal nodes are present. The nodes show normal fatty hilus, normal cortical thickness, and no cystic change or calcification. No abnormal color flow. The largest nodes are as follows: Level 3: 1.1 x 0.3 x 0.8 cm.? Normal nicole architecture. This was not noted on previous study. Level 3: 1.3 x 0.5 x 0.6 cm.? Normal nicole architecture. This has enlarged and previously was 1.3 x 0.5 x 0.6 cm in size. Level 1B: 1.5 x 0.5 x 1.2 cm in size compared to previous study where it measured 1.2 x 0.6 x 0.9 cm in size. Normal nicole architecture. There are 3 other lymph nodes that were not seen on prior study: One within level 2 measuring 5 x 2 x 5 mm in size. This has normal architecture. Another is in level 3 measuring 1.1 x 0.3 x 0.8 cm in size. This has normal architecture. The third is in segment 5A measuring 6 x 4 x 5 mm in size with normal architecture. Labs: Laboratory Tests 05/05/23 11:05 TSH > 100.00 H Free T4 < 0.[address] [facility] Medical History Vitamin D deficiency Hypothyroidism Thyroid cancer Surgical History S/P gastric sleeve procedure Hx of section Hx of dilation and curettage Hx of thyroidectomy Family History Father Asthma Hypertension Mother Hypertension Social History Alcohol intake: current Alcohol intake frequency: holidays/special occasions only Patient Tobacco Use Status: Never used Tobacco Physical Exam Vital Signs: Last Vital Signs Pulse 81 12/03/23 15:17 BP 122/84 12/03/23 15:17 BMI result Body Mass Index 43.7 Const Other: Healed scar status post thyroidectomy. 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 Recent thyroglobulin undetected with stimulation and total body scan did not show any evidence of avid disease in neck or elsewhere. She is currently being treated with Synthroid 200 mcg QD. She appears clinically euthyroid but TSH is high normal. Recent neck ultrasound showed the absence of any abnormal lymph nodes Plan is to increase the Synthroid to 250 mcg and recheck TSH and free T4 in 6 weeks time with the aim of keeping TSH <2.5 . She is scheduled for bariatric surgery I told her to contact our office after the surgery once weight loss occurs to recheck TSH and free T4 as her levothyroxine may need to be adjusted downward Orders: Orders Free T4 (Free Thyroxine) 6 Weeks C73 - Malignant neoplasm of thyroid gland Thyroid Stimulating Hormone 6 Weeks C73 - Malignant neoplasm of thyroid gland Medications: New Synthroid (levothyroxine) Take 50 ug with 200 ug = 250 ug daily 50 mcg PO DAILY 30 tabs 4RF NS Coding Level of Care Code Est Pt Level 3 (44171) Diagnoses Thyroid cancer C73
[2023-12-03 15:17] VITALS: BP 122/84; PULSE 81; BMI 43.7
== END 2023-12-03 15:50 | disposition home or self-care (01) ==
PROVIDERS: PCP Internal Medicine; Visit Provider Internal Medicine Endocrinology, Diabetes & Metabolism
DX: C73 Malignant neoplasm of thyroid gland (principal)
CPT/HCPCS: 99213

== ENCOUNTER → 2023-12-03 15:13 | Outpatient (BNVA) | payer OTHER, SELFPAY | PROVIDERS: PCP Internal Medicine; Visit Provider Internal Medicine Endocrinology, Diabetes & Metabolism | DX: C73 Malignant neoplasm of thyroid gland (principal) | CPT/HCPCS: 99212 ==

== ENCOUNTER 2023-12-04 07:34 | Outpatient (AMB) | payer OTHER, SELFPAY ==
--- NOTE | 2023-12-04 09:59 | MHC.OFFVISWM ---
Intake VS Expanded 12/04/23 10:14 Height 5 ft 1 in Weight 225 lb 6 oz BMI 42.6 Body Fat % 37 Body Fat Mass 83.4 Fat Free Mass 142 Visceral Fat Rating 24 Body Water % 43.2 Body Water Mass 97.4 Basal Metabolic Rate/Score 1,769 Intake Visit Reasons: TV Follow Up SWL Allergies drospirenone [From SHAQ 28] Allergy (Unknown, Verified 12/03/23 15:21) SWELLING ethinyl estradiol [From SHAQ 28] Allergy (Unknown, Verified 12/03/23 15:21) SWELLING naproxen [From NAPROSYN] Allergy (Unknown, Verified 12/03/23 15:21) SWELLING sulfamethoxazole [From BACTRIM] Allergy (Unknown, Verified 12/03/23 15:21) RASH trimethoprim [From BACTRIM] Allergy (Unknown, Verified 12/03/23 15:21) RASH adhesive tape Allergy (Unknown, Uncoded 12/03/23 15:21) Unknown HPI TV Follow Up SWL HPI Details Start time: 10.00am, End time: 10.20am ?I spent 15 minutes speaking with the patient on the phone plus an additional 5 minutes reviewing and updating records for a total of 20 minutes HPI Comments History of Present Illness Details Overall weight loss: 10.2lbs, or 4.33% TBWL Is doing 2 Celebrate Rebuild protein shakes (1 scoop each in 8oz almond milk), 2 Celebrate protein bars and one meal (6 forks of protein and 6 forks of salad or vegetables) Exercise: is doing treadmill for 300 calories, 7 days per week PFSH Medical History Vitamin D deficiency Hypothyroidism Thyroid cancer Surgical History S/P gastric sleeve procedure Hx of section Hx of dilation and curettage Hx of thyroidectomy Family History Father Asthma Hypertension Mother Hypertension Social History Alcohol intake: current Alcohol intake frequency: holidays/special occasions only Patient Tobacco Use Status: Never used Tobacco Assessment & Plan Assessment & Plan (1) Morbid obesity: Code(s): E66.01 - Morbid (severe) obesity due to excess calories Plan: 1. Continue same nutritional plan of 2 Celebrate Rebuild protein shakes (1 scoop each in 8oz almond milk), 2 Celebrate protein bars and one meal (6 forks of protein and 6 forks of salad or vegetables) 2. Exercise: continue the treadmill for 300 calories, 7 days per week. Try to increase, if possible to 350 calories per day. 3. Continue to send me weight measurements weekly on Sundays Telehealth Telehealth Location of provider rendering services: practice address Location of patient: address on file Patient Identification confirmed using: Name, : Yes Telehealth method: voice only Patient verbally consented to treatment: Yes Patient verbally consented to billing insurance company: Yes Patient informed of any privacy concerns related to visit: Yes Minutes spent on Phone/Video with Pt.: 20 Coding Level of Care Code Tele Est Pt Level 3 (35882) Diagnoses Morbid obesity E66.01 Time Spent (min) 20
[2023-12-04 10:14] VITALS: BMI 42.6
== END 2023-12-04 10:20 | disposition home or self-care (01) ==
PROVIDERS: PCP Internal Medicine; Visit Provider Surgery
DX: E66.01 Morbid (severe) obesity due to excess calories (principal)
CPT/HCPCS: 99213

== ENCOUNTER → 2023-12-04 07:37 | Outpatient (REF) | payer OTHER, SELFPAY ==
--- NOTE | 2023-12-04 07:40 | CA_ITS ---
Acquisition Time: 2023-12-04 08:01:55 Total Exercise Time: 00:06:16 Test Indications: Abnormal ECG Medications: Protocol: MELY Max HR: 155 BPM 88% of Pred: 176 BPM Max BP: 142/082 mmHG Max Work Load: 7.3 METS Exercise stress test exercise 6 min 16 sec of Mely protocol achieving 88% MPHR and 7.3 METs, without anginal symptoms, without arrhythmias, with normotensive response to exercise, without EKG changes. Test reviewed with Dr. Rodas. Referred By: Miguel Angel Solis Overread By: Carol Michelle
== END ==
LOC: HO.CARD 07:37
PROVIDERS: PCP Internal Medicine; Visit Provider Surgery
DX: R94.31 Abnormal electrocardiogram [ECG] [EKG] (principal)
CPT/HCPCS: 93017

== ENCOUNTER → 2023-12-04 07:40 | Outpatient (BNV) | payer OTHER, SELFPAY | PROVIDERS: PCP Internal Medicine; Visit Provider Nurse Practitioner | DX: R94.31 Abnormal electrocardiogram [ECG] [EKG] (principal) | CPT/HCPCS: 93016; 93018 ==

== ENCOUNTER 2024-01-18 09:15 | Outpatient (AMB) | payer OTHER, SELFPAY ==
--- NOTE | 2024-01-17 11:02 | A.OFFVIS_ITS ---
Intake Visit Reasons: TV Pre Op LSG 01/28/24 Allergies drospirenone [From SHAQ 28] Allergy (Unknown, Verified 01/17/24 11:03) SWELLING ethinyl estradiol [From SHAQ 28] Allergy (Unknown, Verified 01/17/24 11:03) SWELLING naproxen [From NAPROSYN] Allergy (Unknown, Verified 01/17/24 11:03) SWELLING sulfamethoxazole [From BACTRIM] Allergy (Unknown, Verified 01/17/24 11:03) RASH trimethoprim [From BACTRIM] Allergy (Unknown, Verified 01/17/24 11:03) RASH adhesive tape Allergy (Unknown, Uncoded 01/17/24 11:03) Unknown HPI HPI TV Pre Op LSG 01/28/24: Details: Start time: 1.32pm, End time: 2.02pm ?I spent 25 minutes speaking with the patient on the phone plus an additional 5 minutes reviewing and updating records for a total of 30 minutes HPI Comments Details: Overall weight loss: 22.2lbs, or 9.41% TBWL Is doing 2 Celebrate Rebuild protein shakes (1 scoop each in 8oz almond milk), 2 Celebrate protein bars and one meal (6 forks of protein and 6 forks of salad or vegetables) Exercise: is doing treadmill for 300 calories, 7 days per week PFSH Medical History Vitamin D deficiency Hypothyroidism Thyroid cancer Surgical History S/P gastric sleeve procedure Hx of section Hx of dilation and curettage Hx of thyroidectomy Family History Father Asthma Hypertension Mother Hypertension Social History Alcohol intake: current Alcohol intake frequency: holidays/special occasions only Patient Tobacco Use Status: Never used Tobacco Telehealth Telehealth Telehealth Platform: Telephone Location of provider rendering services: practice address Location of patient: address on file Patient Identification confirmed using: Name, : Yes Telehealth method: voice only Patient verbally consented to treatment: Yes Patient verbally consented to billing insurance company: Yes Patient informed of any privacy concerns related to visit: Yes Minutes spent on Phone/Video with Pt.: 30 Assessment & Plan Assessment & Plan (1) Morbid obesity: Code(s): E66.01 - Morbid (severe) obesity due to excess calories Category: Medical Plan: 1. Plan for lap revision of sleeve gastrectomy including upper GI endoscopy. All tests has been completed and reviewed and the patient is cleared for the surgery. ?If diaphragmatic or ventral hernias are present at time of surgery, these will be repaired laparoscopically as well. Risks and complications were discussed in detail including possible conversion to an open procedure, anastomotic leak, bleeding requiring transfusion, small bowel obstruction, , DVT and pulmonary embolism, cardiac, or pulmonary complications, as intermediate complications such as anastomotic ulcer, insufficient weight loss and vitamin deficiencies. I emphasized the importance of close follow-up, adherence to instructions and good communication. So far she has proven to be an excellent communicator and very compliant with all our directions accomplishing a great weight loss. I believe that she is an excellent candidate and she is ready. 2. Preop prescriptions were provided and explained the purpose of each one. Need to be purchased preop. Start Pantoprazole now as you get it from the pharmacy, 1 pill per day. Sucralfate and Zofran are for after surgery as needed. 3. Bowel prep: please do 7 measuring cups ?of Miralax mixing each one with a an 8oz glass of water, crystal light, gatorade zero, or propel ?on 01/26/24 and the same amount on 01/27/24. The Miralax you begin with one packet at a time in 8oz water or crystal light, gatorade zero, or propel ?as early in the day as you can and you do them back to back until you finish them. Continue the protein shakes during? the bowel prep. 4. Needs to purchase 1oz medicine cups . 5. Needs to purchase Children's liquid Tylenol for postop pain control. 6. Avoid aspirin, motrin, Advil, Aleve, Ibuprofen, Naproxyn. Tylenol is OK. 7. She needs to purchase the Celebrate 4:1 protein shakes from the [facility] gift [facility]. 8. Will do basic preop blood work-up any day between Thursday01/18/24 and Thursday01/22/24 fasting for 12 hours and is scheduled to see the Anesthesiologist prior to the day of surgery. 9. Importance of adherence to postop folllow-up and recommendations was underscored and she understands that. 10. Stop food and bars as of tomorrow 01/18/24 and continue with 3 Celebrate REBUILD protein shakes (ONE scoop EACH in 8oz almond milk) at 7am-9am, 10am-12pm and 1pm-3pm and TWO more Celebrate REBUILD protein shakes with TWO scoops EACH in 8oz of almond milk at 4pm-6pm and 7pm-9pm 11. No soups, broths or V8 12. The patient's?medical?history has been reviewed and they are considered low risk for post op DVT and therefore DVT prophylaxis is not considered necessary. Travel after surgery was reviewed. The patient has not disclosed any travel plans during the first 30 days after surgery and they have been advised that within the first 30 days after surgery any bus, plane, train or car travel over 2 hours in duration is contraindicated due to the possibility of developing blood clots from immobility. Any travel, needs to include periods of ambulation of 10 minutes in duration every 2 hours.? Patient was instructed to discuss any plans for travel during this period with their bariatric surgeon.? 13. Please take at the day of surgery the following medications: NONE 14. Stop any control pills and don't use them for one month after surgery 15. Absolutely no smoking or vaping, or marijuana until the surgery and for at least the first 4 weeks. Only nicotine patches are allowed. 16. Send me weight measurements on Thursday01/24/24 and then on 01/28/24 the day of surgery before you go to the hospital. 17. Avoid any steroids by mouth for any reason. Let me know if someone prescribes them to you20. These instructions supersede anything else you read in the handbook, anything you watched in videos or classes or you were told by any other provider. If there is any conflict, you follow the above instructions Orders: Orders TSH reflex Free T4 01/17/24 E66.01 - Morbid (severe) obesity due to excess calories Prothrombin Time INR 01/17/24 E66.01 - Morbid (severe) obesity due to excess calories Partial Thromboplastin Time 01/17/24 E66.01 - Morbid (severe) obesity due to excess calories Complete Blood Count Auto Diff 01/17/24 E66. - Morbid (severe) obesity due to excess calories Lipid Panel 01/17/24 E66. - Morbid (severe) obesity due to excess calories Comprehensive Met. Panel 01/17/24 E66. - Morbid (severe) obesity due to excess calories Type and Screen 01/17/24 E602.05 - Morbid (severe) obesity due to excess calories Insulin 01/17/24 E602.05 - Morbid (severe) obesity due to excess calories C Reactive Protein 01/17/24 E66. - Morbid (severe) obesity due to excess calories Hemoglobin A1c 01/17/24 E66 - Morbid (severe) obesity due to excess calories Medications: New pantoprazole 40 mg PO DAILY 90 tabs 0RF K21.9 - Gastro-esophageal reflux disease without esophagitis sucralfate 10 mL PO BID 600 mL 2RF K21.9 - Gastro-esophageal reflux disease without esophagitis ondansetron 4 mg PO Q12H 20 tabs 0RF nausea and vomiting R11.0 - Nausea polyethylene glycol 3350 Mix each measuring cup with 8oz of water, Crystal light, or Gatorade zero, or Propel and do 7 measuring cups on 01/26/24 and another 7 measuring cups on 01/27/24 17 grams PO DAILY 238 grams 0RF Z01.818 - Encounter for other preprocedural examination
== END 2024-01-18 14:03 | disposition home or self-care (01) ==
LOC: HO.HBS 09:15
PROVIDERS: PCP Internal Medicine; Visit Provider Surgery
DX: E66.01 Morbid (severe) obesity due to excess calories (principal)
CPT/HCPCS: 99214

== ENCOUNTER → 2024-01-18 09:15 | Outpatient (BNVA) | payer OTHER, SELFPAY | PROVIDERS: PCP Internal Medicine; Visit Provider Surgery | DX: E66.01 Morbid (severe) obesity due to excess calories (principal); K21.9 Gastro-esophageal reflux disease without esophagitis; R11.0 Nausea; Z01.818 Encounter for other preprocedural examination ==

== ENCOUNTER → 2024-01-22 15:25 | Outpatient (BNVA) | payer OTHER, SELFPAY | PROVIDERS: PCP Internal Medicine; Visit Provider Physician Assistant Surgical ==

== ENCOUNTER 2024-01-28 06:00 | Inpatient (IN) | payer OTHER, SELFPAY ==
[2024-01-20 06:29] LABS: MANUAL DIFF FLAG NO
[2024-01-20 08:03] LABS: Eosinophils Absolute Auto 0.2 X10*3/uL (0.0-0.4); Eosinophils Percent Auto 5.7 % (0-4); Hematocrit 40.1 % (37.0-47.0); Hemoglobin 13.4 g/dl (12.0-16.0); Lymphocytes Absolute Auto 1.3 X10*3/uL (1.2-4.9); Lymphocytes Percent Auto 40.1 % (20-40); Mean Corpuscular HGB Conc 33.4 g/dl (31.0-35.0); Mean Corpuscular Hemoglobin 29.1 pg (27.0-33.0); Mean Platelet Volume 13.6 fL (9.4-12.3); Monocytes Absolute Auto 0.5 X10*3/uL (0.1-1.2); Monocytes Percent Auto 16.9 % (2-11); Neutrophils Absolute Auto 1.1 x10*3/uL (2.0-8.3); Neutrophils Percent Auto 36.3 % (45-73); Platelet Count 132 X10*3/uL (160-400); Red Blood Count 4.61 X10*6/uL (4.20-5.50); Red Cell Distribution Width 14.6 % (11.0-16.0); White Blood Count 3.1 X10*3/uL (4.8-10.8)
[2024-01-20 08:05] LABS: Estimated Average Glucose 97 mg/dL; Prothrombin Time 12.2 SEC (11.1-13.3)
[2024-01-20 08:08] LABS: Partial Thromboplastin Time 32.2 SEC (26.0-36.8)
[2024-01-20 08:50] LABS: Alanine Aminotransferase 12 U/L (0-31); Albumin Level 4.2 g/dL (3.5-5.0); Alkaline Phosphatase 39 U/L (39-117); Anion Gap 13 (12-20); Aspartate Amino Transferase 15 U/L (5-31); Blood Urea Nitrogen 12 mg/dL (9-16); C Reactive Protein < 0.10 mg/dL (< or = 0.50); Calcium 8.9 mg/dL (8.4-10.2); Carbon Dioxide 22 mmol/L (22-29); Chloride 108 mmol/L (96-108); Cholesterol 132 mg/dL (<200); Estimated Glomerular Filt Rate > 60; Glucose Random 79 mg/dL (60-115); HDL Cholesterol 63 mg/dL (>40); LDL Cholesterol Calculated 60 mg/dL (<100); Potassium 4.1 mmol/L (3.3-5.1); Sodium 139 mmol/L (135-145); Triglycerides 45 mg/dL (<150)
[2024-01-20 09:00] VITALS: BMI 40.2
[2024-01-20 09:07] LABS: Insulin 6 uU/mL (2-29); TSH reflex Free T4 0.03 uIU/mL (0.32-4.0)
[2024-01-20 09:51] LABS: Free T4 (Free Thyroxine) 1.61 ng/dL (0.71-1.85)
--- NOTE | 2024-01-26 13:25 | P.CONAN_ITS ---
Documented by User: Glenis Giraldo NP 01/26/24 13:27 HPI - Anesthesia Eval Consult details Narrative: 43yo F for Revision Sleeve Gastrectomy,to Sleeve Gastrectomy,EGD,possible diaphragmatic hernia,possible ventral hernia,possible open s/p EGD 10/2023 with TIVA PMF[facility] Active Problems Active Problems: All Active Problems Unspecified mental disorder due to known physiological condition (Acute) Vitamin A deficiency (Acute) Dysthymia (Acute) S/P gastric sleeve procedure (Acute) Asthma (Acute) Morbid obesity (Acute) Vitamin D deficiency (Acute) Hypothyroidism (Acute) Thyroid cancer (Acute) Past Medical History Medical History Vitamin D deficiency Hypothyroidism Thyroid cancer Family History Family History Father Asthma Hypertension Mother Hypertension Surgical History Surgical History S/P gastric sleeve procedure Hx of section Hx of dilation and curettage Hx of thyroidectomy History of Problems with Anesthesia: No Social History Social History Are you a primary skin care instructor to a significant other at home: No Do you presently have visiting nurse or other home services: No Alcohol intake: current Alcohol intake frequency: does not drink Patient Tobacco Use Status: Never used Tobacco Use of substances other than those prescribed or required for medical reasons: No Have you been hit, kicked, punched, or otherwise hurt by someone within the past year? If so, by whom?: No Are you DNR?: No Advance Directives: No Advance Directives on File: No Recently lost weight without trying: No Eating poorly because of decreased appetite: No Nutrition Risks: No Nutritional Risk Patient : No : No Poor oral hygiene: No Meds Allergies Allergy/AdvReac Type Severity Reaction Status Date / Time drospirenone [From SHAQ 28] Allergy Unknown SWELLING Verified 01/22/24 15:38 ethinyl estradiol Allergy Unknown SWELLING Verified 01/22/24 15:38 [From SHAQ 28] naproxen [From NAPROSYN] Allergy Unknown SWELLING Verified 01/22/24 15:38 sulfamethoxazole Allergy Unknown RASH Verified 01/22/24 15:38 [From BACTRIM] trimethoprim [From BACTRIM] Allergy Unknown RASH Verified 01/22/24 15:38 adhesive tape Allergy Unknown Unknown Uncoded 01/22/24 15:38 Home Medications ?Medication ?Instructions ?Recorded ?Confirmed ?Last Taken ?Type cyanocobalamin (vitamin B-12) 500 500 mcg PO DAILY@1200 12/30/21 01/28/24 01/28/24 History mcg tablet cholecalciferol (vitamin D3) 125 125 mcg PO DAILY@1200 01/20/24 01/28/24 01/28/24 History mcg (5,000 unit) capsule vitamin A palmitate 3,000 mcg 10,000 unit PO DAILY@1200 01/20/24 01/28/24 History (10,000 unit) capsule levothyroxine 200 mcg tablet 200 mcg PO DAILY@0601/28/24 01/28/24 01/28/24 History (Synthroid) levothyroxine 50 mcg tablet 50 mcg PO DAILY@0601/28/24 01/28/24 01/28/24 History (Synthroid) Exam Height,Weight and Vital Signs: Height 5 ft 1 in Weight 96.615 kg Pertinent Lab Results Pertinent Lab Results: Laboratory Tests 01/20/24 01/20/24 06:25 06:28 WBC 3.1 L RBC 4.61 Hgb 13.4 Hct 40.1 MCV 87.0 MCH 29.1 MCHC 33.4 RDW 14.6 Plt Count 132 L MPV 13.6 H Immature Gran % (Auto) 0.0 Neut % (Auto) 36.3 L Lymph % (Auto) 40.1 H [place] % (Auto) 16.9 H Eos % (Auto) 5.7 H Baso % (Auto) 1.0 Lymph # (Auto) 1.3 [place] # (Auto) 0.5 Eos # (Auto) 0.2 Baso # (Auto) 0.0 Abs Immat Gran (auto) 0.00 Absolute Neuts (auto) 1.1 L Absolute Nucleated RBC 0.000 Nucleated RBC % (auto) 0.0 PT 12.2 INR 1.0 APTT 32.2 Sodium 139 Potassium 4.1 Chloride 108 Carbon Dioxide 22 Anion Gap 13 BUN 12 Creatinine 0.67 Estim Creat Clear Calc TNP Estimated GFR > 60 Random Glucose 79 Estimat Average Glucose 97 Hemoglobin A1c % 5.0 Insulin Level 6 Calcium 8.9 Total Bilirubin 1.0 AST 15 ALT 12 Alkaline Phosphatase 39 C-Reactive Protein < 0.10 Total Protein 7.0 Albumin 4.2 Triglycerides 45 Cholesterol 132 LDL Cholesterol, Calc 60 HDL Cholesterol 63 TSH 0.03 L Free T4 1.61 Blood Type A Positive Antibody Screen NEGATIVE Narrative Narrative: EKG 10/2023 Vent. Rate : 070 BPM Atrial Rate : 070 BPM P-R Int : 140 ms QRS Dur : 094 ms QT Int : 384 ms P-R-T Axes : 040 022 023 degrees QTc Int : 414 ms Normal sinus rhythm Nonspecific T wave abnormality Abnormal ECG When compared with ECG of 06-SEP-2022 01:19, No significant change was found Exercise Stress 11/2023 Protocol: TONG Max HR: 155 BPM 88% of Pred: 176 BPM Max BP: 142/082 mmHG Max Work Load: 7.3 METS Exercise stress test exercise 6 min 16 sec of Tong protocol achieving 88% MPHR and 7.3 METs, without anginal symptoms, without arrhythmias, with normotensive response to exercise, without EKG changes. Test reviewed with Dr. Rodas. Assessment and Plan Assessment Anesthesia Assessment: Chart Reviewed Final Anesthetic Review History of Problems with Anesthesia: No Documented by User: Karrie Powell MD 01/28/24 08:57 HPI - Anesthesia Eval Consult details Narrative: 43yo F for Revision Sleeve Gastrectomy,to Sleeve Gastrectomy,EGD,possible diaphragmatic hernia,possible ventral hernia,possible open s/p EGD 10/2023 with TIVA 01/28/24: Lap band 2012. Removal of lap band and conversion to LSG 2017 @ [facility]. Has regained weight. For revision of LSG [facility] Active Problems Active Problems: All Active Problems Unspecified mental disorder due to known physiological condition (Acute) Vitamin A deficiency (Acute) Dysthymia (Acute) S/P gastric sleeve procedure (Acute) Asthma - controlled. No inhalers recently Morbid obesity BMI 39 Vitamin D deficiency (Acute) Hypothyroidism (Acute) Thyroid cancer (Acute). S/p thyroidectomy 2013 Denies ZHENG Past Medical History Medical History Vitamin D deficiency Hypothyroidism Thyroid cancer Family History Family History Father Asthma Hypertension Mother Hypertension Family history of problems with anesthesia: No Surgical History Surgical History S/P gastric sleeve procedure Hx of section Hx of dilation and curettage Hx of thyroidectomy History of Problems with Anesthesia: No Social History Social History Are you a primary skin care instructor to a significant other at home: No Do you presently have visiting nurse or other home services: No Alcohol intake: current Alcohol intake frequency: does not drink Patient Tobacco Use Status: Never used Tobacco Use of substances other than those prescribed or required for medical reasons: No Have you been hit, kicked, punched, or otherwise hurt by someone within the past year? If so, by whom?: No Are you DNR?: No Advance Directives: No Advance Directives on File: No Recently lost weight without trying: No Eating poorly because of decreased appetite: No Nutrition Risks: No Nutritional Risk Patient : No : No Poor oral hygiene: No Meds Allergies Allergy/AdvReac Type Severity Reaction Status Date / Time drospirenone [From SHAQ 28] Allergy Unknown SWELLING Verified 01/22/24 15:38 ethinyl estradiol Allergy Unknown SWELLING Verified 01/22/24 15:38 [From SHAQ 28] naproxen [From NAPROSYN] Allergy Unknown SWELLING Verified 01/22/24 15:38 sulfamethoxazole Allergy Unknown RASH Verified 01/22/24 15:38 [From BACTRIM] trimethoprim [From BACTRIM] Allergy Unknown RASH Verified 01/22/24 15:38 adhesive tape Allergy Unknown Unknown Uncoded 01/22/24 15:38 Home Medications ?Medication ?Instructions ?Recorded ?Confirmed ?Last Taken ?Type cyanocobalamin (vitamin B-12) 500 500 mcg PO DAILY@1200 12/30/21 01/28/24 01/28/24 History mcg tablet cholecalciferol (vitamin D3) 125 125 mcg PO DAILY@1200 01/20/24 01/28/24 01/28/24 History mcg (5,000 unit) capsule vitamin A palmitate 3,000 mcg 10,000 unit PO DAILY@1200 01/20/24 01/28/24 01/27/24 History (10,000 unit) capsule levothyroxine 200 mcg tablet 200 mcg PO DAILY@0601/28/24 01/28/24 01/28/24 History (Synthroid) levothyroxine 50 mcg tablet 50 mcg PO DAILY@0601/28/24 01/28/24 01/28/24 History (Synthroid) Exam Height,Weight and Vital Signs: Height 5 ft 1 in Weight 96.615 kg Vital Signs Temp Pulse Resp BP Pulse Ox O2 Del Method 01/28/24 06:22 99.4 F 88 16 126/71 98 Room Air Pertinent Lab Results Pertinent Lab Results: Laboratory Tests 01/20/24 01/20/24 06:25 06:28 WBC 3.1 L RBC 4.61 Hgb 13.4 Hct 40.1 MCV 87.0 MCH 29.1 MCHC 33.4 RDW 14.6 Plt Count 132 L MPV 13.6 H Immature Gran % (Auto) 0.0 Neut % (Auto) 36.3 L Lymph % (Auto) 40.1 H [place] % (Auto) 16.9 H Eos % (Auto) 5.7 H Baso % (Auto) 1.0 Lymph # (Auto) 1.3 [place] # (Auto) 0.5 Eos # (Auto) 0.2 Baso # (Auto) 0.0 Abs Immat Gran (auto) 0.00 Absolute Neuts (auto) 1.1 L Absolute Nucleated RBC 0.000 Nucleated RBC % (auto) 0.0 PT 12.2 INR 1.0 APTT 32.2 Sodium 139 Potassium 4.1 Chloride 108 Carbon Dioxide 22 Anion Gap 13 BUN 12 Creatinine 0.67 Estim Creat Clear Calc TNP Estimated GFR > 60 Random Glucose 79 Estimat Average Glucose 97 Hemoglobin A1c % 5.0 Insulin Level 6 Calcium 8.9 Total Bilirubin 1.0 AST 15 ALT 12 Alkaline Phosphatase 39 C-Reactive Protein < 0.10 Total Protein 7.0 Albumin 4.2 Triglycerides 45 Cholesterol 132 LDL Cholesterol, Calc 60 HDL Cholesterol 63 TSH 0.03 L Free T4 1.61 Blood Type A Positive Antibody Screen NEGATIVE Lab Results 01/20/24 01/20/24 01/28/24 Range/Units 06:25 06:28 06:11 WBC 3.1 L (4.8-10.8) X10*3/uL RBC 4.61 (4.20-5.50) X10*6/uL Hgb 13.4 (12.0-16.0) g/dl Hct 40.1 (37.0-47.0) % MCV 87.0 (80.0-98.0) fL MCH 29.1 (27.0-33.0) pg MCHC 33.4 (31.0-35.0) g/dl RDW 14.6 (11.0-16.0) % Plt Count 132 L (160-400) X10*3/uL MPV 13.6 H (9.4-12.3) fL Immature Gran % (Auto) 0.0 (0.0-0.4) % Neut % (Auto) 36.3 L (45-73) % Lymph % (Auto) 40.1 H (20-40) % [place] % (Auto) 16.9 H (2-11) % Eos % (Auto) 5.7 H (0-4) % Baso % (Auto) 1.0 (0-2) % Lymph # (Auto) 1.3 (1.2-4.9) X10*3/uL [place] # (Auto) 0.5 (0.1-1.2) X10*3/uL Eos # (Auto) 0.2 (0.0-0.4) X10*3/uL Baso # (Auto) 0.0 (0.0-0.2) X10*3/uL Abs Immat Gran (auto) 0.00 (0.00-0.03) X10*3/uL Absolute Neuts (auto) 1.1 L (2.0-8.3) x10*3/uL Absolute Nucleated RBC 0.000 (0.0-0.012) X10*3/uL Nucleated RBC % (auto) 0.0 (0.0-0.2) /100WBC PT 12.2 (11.1-13.3) SEC INR 1.0 (0.9-1.1) APTT 32.2 (26.0-36.8) SEC Sodium 139 (135-145) mmol/L Potassium 4.1 (3.3-5.1) mmol/L Chloride 108 (96-108) mmol/L Carbon Dioxide 22 (22-29) mmol/L Anion Gap 13 (12-20) BUN 12 (9-16) mg/dL Creatinine 0.67 (0.5-1.4) mg/dL Estim Creat Clear Calc TNP Estimated GFR > 60 Random Glucose 79 (60-115) mg/dL Estimat Average Glucose 97 mg/dL Hemoglobin A1c % 5.0 (<6.0) % Insulin Level 6 (2-29) uU/mL Calcium 8.9 (8.4-10.2) mg/dL Total Bilirubin 1.0 (0.0-1.0) mg/dL AST 15 (5-31) U/L ALT 12 (0-31) U/L Alkaline Phosphatase 39 (39-117) U/L C-Reactive Protein < 0.10 (< or = 0.50) mg/dL Total Protein 7.0 (6.5-8.0) g/dL Albumin 4.2 (3.5-5.0) g/dL Triglycerides 45 (<150) mg/dL Cholesterol 132 (<200) mg/dL LDL Cholesterol, Calc 60 (<100) mg/dL HDL Cholesterol 63 (>40) mg/dL TSH 0.03 L (0.32-4.0) uIU/mL Free T4 1.61 (0.71-1.85) ng/dL Urine Test NEGATIVE (NEGATIVE) Blood Type A Positive Antibody Screen NEGATIVE Airway Mallampati Class: II TM Dist: >3cm Neck ROM: Full Loose/Missing/Broken Teeth: No (Denies broken, loose, missing teeth) Heart: RRR Lungs: CTAB Assessment and Plan Assessment Anesthesia Assessment: Anesthesia Plan Discussed and Chart Reviewed Final Anesthetic Review Family History of Problems with Anesthesia: No History of Problems with Anesthesia: No NPO: Yes ASA Class: III Final Preanesthetic Review: No Changes in Pt Med Stat, Meds/Allgs Chart Reviewed, Consent Obtained/Reviewed and Anes Risks/Benef Reviewed Patient Risk: Intermediate Procedure Risk: Intermediate Assessment/Block/Sedation in SS: Assess/Block/Sedation- Anesthetic Plan Anesthetic Plan: GA Disposition: Standard PACU and Inp. Admit - Standard Bed
[2024-01-28] VITALS (12 sets, daily range): BP systolic 116–141; BP diastolic 64–86; PULSE 73–107; RESP 12–20; TEMP 36.3–37.4; O2SAT 94–98; BMI 39.0
--- OUTSIDE RECORDS SUMMARY | 2024-01-28 06:08 | XMS_ITS | Continuity of Care Document ---
Author Organization [facility] Address [address] [place] [address], [address] [place] [address]- Care Team Providers Care Manager Global Communications Name Role Phone Name [place] HUYNH Primary Care Physician [place] [facility] [place](s): 12/27/21 - 01/26/22 [facility] [employer] [facility] [address], [address] [place] [address]- Allergies, Adverse Reactions, Alerts Substance Reaction Severity Status naproxen swollen eyes Moderate Active Bactrim Active Adhesive Bandage Active Vannesa Active Immunizations Given and Recorded Vaccine Date Status Refusal Reason tetanus/diphtheria/pertussis, acel(Tdap) 01/16/22 Given influenza virus vaccine, inactivated 08/29/21 Give n Medications aspirin 81 mg oral tablet, chewable 162 mg, 2, tablet, Chew, Daily, # 60 tablet, Refills 8, Tot. Refills 8, Maintenance, 08/29/21 9:42:00 EST, Route to Pharmacy Electronically, [facility]/pharmacy #[id number], Partial fill upon patient request if the prescription is for a schedule II opioid drug., 1... Start Date: 08/29/21 Status: Ordered Combivent 103 mcg-18 mcg/inh inhalation aerosol with adapter 2 puffs, Inhalation, 4 times a day, PRN Wheezing/Shortness of Breath, 0 Refills, Maintenance Start Date: 06/16/13 Status: Ordered Compression Stockings See Instructions, # 1 each, Refills 0, Tot. Refills 0, Maintenance, surgical, knee length 20-30 mm Hg, 11/20/21 11:13:00 EDT, Supply, 155, cm, 11/20/21 10:49:00 EDT, Height, 101.2, kg, 08/27/21 15:49:00 EST, Dry Weight Start Date: 11/20/21 Status: Ordered levothyroxine 150 mcg (0.15 mg) oral tablet 1 tablet = 150 mcg, By Mouth, Daily, 0 Refills, Maintenance, 10/23/20 10:03:00 EST, Partial fill upon patient request if the prescription is for a schedule II opioid drug. Start Date: 10/23/20 Status: Ordered PNV Plus oral tablet 1 tablet, By Mouth, Daily, # 90 tablet, 1 Refills, Maintenance, 10/07/21 16:30:00 EST, [id number], Partial fill upon patient request if the prescription is for a schedule II opioid drug., 1 tablet By Mouth Daily, 155, cm, 09/25/21 10:47:00 EST... Start Date: 10/07/21 Status: Ordered Vitamin B-12 500 mcg oral tablet 1 tablet = 500 mcg, By Mouth, Daily, # 90 tablet, 3 Refills, Maintenance, 11/01/21 8:45:00 EST, Tablet, [id number], Partial fill upon patient request if the prescription is for a schedule II opioid drug., 155, cm, 10/28/21 11:50:00 EST, Height... Start Date: 11/01/21 Status: Ordered Vitamin D2 2000 intl units oral capsule 1 capsule = 50 mcg, By Mouth, Daily, with food, # 90 capsule, 3 Refills, Maintenance, 11/01/21 8:47:00 EST, Capsule, [id number], Partial fill upon patient request if the prescription is for aschedule II opioid drug., 155, cm, 10/28/21 11:50:0... 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
--- OUTSIDE RECORDS SUMMARY | 2024-01-28 06:08 | XMS_ITS | Continuity of Care Document ---
Author Organization [facility] Address [address] [place] [address]- Care Team Providers Care Dermatology Procedural Physician Name Role Phone Sebastien HUYNH, Lashae Lozano Primary Care Physician [phone] Encounter [facility] Date(s): 01/12/23 - 02/11/23 [facility] [address] [place], [place] [address] Allergies, Adverse Reactions, Alerts Substance Reaction Severity Status naproxen swollen eyes Moderate Active Bactrim Active Adhesive Bandage Active Vannesa Active Immunizations Given and Recorded Vaccine Date Status Refusal Reason tetanus/diphtheria/pertussis, acel(Tdap) 01/16/22 Given tetanus/diphtheria/pertussis, acel(Tdap) 11/02/12 Recorded SARS-CoV-2 (COVID-19) mRNA-1273 vaccine 09/13/21 R ecorded SARS-CoV-2 (COVID-19) mRNA-1273 vaccine 12/14/20 R ecorded SARS-CoV-2 (COVID-19) mRNA-1273 vaccine 11/16/20 R ecorded influenza virus vaccine, inactivated 08/29/21 Give n influenza virus vaccine, inactivated 06/02/17 Kaleb rded influenza virus vaccine, inactivated 07/28/16 Kaleb rded influenza virus vaccine, inactivated 07/30/15 Kaleb rded influenza virus vaccine, inactivated 07/05/14 Kaleb rded influenza virus vaccine, inactivated 07/27/13 Kaleb rded influenza virus vaccine, inactivated 07/12/12 Kaleb rded influenza virus vaccine, inactivated 05/14/11 Kaleb rded influenza virus vaccine, inactivated 05/24/10 Kaleb rded influenza virus vaccine, inactivated 08/14/09 Kaleb rded influenza virus vaccine, inactivated 06/20/08 Kaleb rded tetanus-diphtheria toxoids (Td) 08/23/04 Recorded Medications Combivent Respimat 20 mcg-100 mcg/inh inhalation aerosol 1 puffs, Inhalation, 4 times a day, # 4 mL, 3 Refills, Maintenance, 09/15/22 8:02:00 EST, [id number], 30, TAKE 1 PUFF BY MOUTH 4 TIMES A DAY, 154.9, cm, 08/21/22 10:34:00 EST, Height, 96, kg, 04/17/22 14:30:00 EDT, Dry Weight Start Date: 09/15/22 Status: Ordered diclofenac 1% topical gel 1 application, Topically, 4 times a day, PRN Pain , Moderate, # 100 Gm, 1 Refills, Maintenance, 06/03/22 11:10:00 EDT, Gel, [facility]/pharmacy #[id number], Partial fill upon patient request if the prescription is for a schedule II opioid drug., 61, cm, 05/30/22 1... Start Date: 06/03/22 Status: Ordered ibuprofen 600 mg oral tablet 600 mg, 1, tablet, By Mouth, Every 6 hours, PRN, # 40 tablet, Refills 0, Tot. Refills 0, Maintenance, Pain , Mild, 07/18/22 14:31:00 EST, Route to Pharmacy Electronically, [facility]/pharmacy #[id number], Partialfill upon patient request if the prescription is fo... Start Date: 07/18/22 Status: Ordered levothyroxine 175 mcg (0.175 mg) oral tablet 90 each, TAKE 1 TABLET BY MOUTH EVERY DAY, 0 Refills, 05/15/22 9:08:00 EDT, Partial fill upon patient request if the prescription is for a schedule II opioid drug. Start Date: 05/15/22 Status: Ordered Plus Low Iron oral tablet 1 tablet, By Mouth, Daily, # 90 tablet, 1 Refills, Maintenance, 10/07/22 7:38:00 EST, [id number], 90, TAKE 1 TABLET BY MOUTH EVERY DAY, 154.9, cm, 09/30/22 16:07:00 EST, Height, 96, kg, 04/17/2214:30:00 EDT, Dry Weight Start Date: 10/07/22 Status: Ordered sertraline 25 mg oral tablet 1 tablet = 25 mg, By Mouth, Daily in AM, # 30 tablet, 3 Refills, Maintenance, 12/31/22 9:46:00 EDT,Tablet, [id number], Partial fill upon patient request if the prescription is for a scheduleII opioid drug., 154, cm, 12/19/22 13:01:00 EDT, He... 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 Hx of bariatric surgery Confirmed Active Gallbladder hydrops Confirmed Active Health care maintenance Confirmed Active Hypothyroidism, postsurgical Confirmed Active Chronic RUQ pain Confirmed Active Severe obesity Confirmed Active Social History Social History Type Response Smoking Status Never (less than 100 in lifetime) entered on: 07/31/20 Sex Patient Care team information Care Team Personnel Name: Lashae Crowe MD, V Position: [facility] Physician - Primary Care Member Role: PCP Address: Address: [address] [place] [address] Name: Dee Dee Roberts Position: [facility] Outreach Member Role: Lifetime Consulting Physician Care Team Related Persons Name: JUSTIN PEPPER Address: home [address] [address] Name: KAIN BROOKS Address: [address] Address: home [address] [address] [place] Name: TARSHA DANGELO Address: home [address] [address]
--- OUTSIDE RECORDS SUMMARY | 2024-01-28 06:08 | XMS_ITS | Continuity of Care Document ---
Author Organization [facility] Address Unknown Care Team Providers Care Drawing Tracer Name Role Phone Name [place] HUYNH Primary Care Physician [phone] Encounter [facility] [place] Date(s): 07/10/21 - 08/09/21 [facility] Allergies, Adverse Reactions, Alerts Substance Reaction Severity Status naproxen swollen eyes Moderate Active Bactrim Active Adhesive Bandage Active Vannesa Active Medications Combivent 103 mcg-18 mcg/inh inhalation aerosol with adapter 2 puffs, Inhalation, 4 times a day, PRN Wheezing/Shortness of Breath, 0 Refills, Maintenance Start Date: 06/16/13 Status: Ordered estradiol 2 mg oral tablet 1 tablet = 2 mg, By Mouth, 2 times a day, # 60 tablet, 1 Refills, Maintenance, 11/06/20 16:46:00 EST, [facility]/pharmacy #[id number], Partial fill upon patient request if the prescription is for a schedule II opioid drug., 155, cm, 10/23/20 10:00:00 EST, Height Start Date: 11/06/20 Stop Date: 01/05/21 Status: Ordered ibuprofen 800 mg oral tablet See Instructions, 1 tablet By Mouth 30 minutes prior to procedure, # 5 tablet, Refills 0, Tot. Refills 0, Maintenance, 11/22/20 17:08:00 EDT, Instructions Replace Required Details, Route to Pharmacy Electronically, [facility]/pharmacy #[id number], Partial fill upo... Start Date: 11/22/20 Status: Ordered levothyroxine 150 mcg (0.15 mg) oral tablet 1 tablet = 150 mcg, By Mouth, Daily, 0 Refills, Maintenance, 10/23/20 10:03:00 EST, Partial fill upon patient request if the prescription is for a schedule II opioid drug. Start Date: 10/23/20 Status: Ordered Multivitamins By Mouth, Daily, 0 Refills, Maintenance, 10/23/20 10:04:00 EST, Partial fill upon patient request if the prescription is for a schedule II opioid drug. Start Date: 10/23/20 Status: Ordered Prometrium 200 mg oral capsule = 400 mg, Vaginally, 2 times a day, # 120 capsule, 1 Refills, Maintenance, 07/22/21 16:11:00 EST, [facility]/pharmacy #[id number], Partial fill upon patient request if the prescription is for a schedule II opioiddrug., 155, cm, 01/02/21 9:19:00 EDT, Height Start Date: 07/22/21 Status: Ordered Provera 10 mg oral tablet 10 mg, 1, tablet, By Mouth, Daily, start tomorrow if test is negative, # 10 tablet, Refills 0, Tot. Refills 0, Maintenance, 12/13/20 13:05:00 EDT, Route to Pharmacy Electronically, [facility]/pharmacy #[id number], Partial fill upon patient request if the... 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
--- OUTSIDE RECORDS SUMMARY | 2024-01-28 06:09 | XMS_ITS | Continuity of Care Document ---
Author Organization [facility] Address [address], [address] [place] [address]- Care Team Providers Care Commission Specialist Name Role Phone Name [place] HUYNH Primary Care Physician Encounter [facility] Date(s): 03/06/22 - 04/05/22 [facility] [address], [address] [place], [place] [address] Allergies, Adverse Reactions, Alerts Substance Reaction Severity Status naproxen swollen eyes Moderate Active Bactrim Active Adhesive Bandage Active Vannesa Active Immunizations Given and Recorded Vaccine Date Status Refusal Reason tetanus/diphtheria/pertussis, acel(Tdap) 01/16/22 Given influenza virus vaccine, inactivated 08/29/21 Give n Medications acetaminophen 325 mg oral tablet 650 mg, By Mouth, Every 4 hours, (1-3), may give 325mg per patient preference and re-dose with 325mg within 4 hours, if needed. Patient should only receive a total of 650mg of Acetaminophen every 4 hours., # 90 tablet, Refills 0, Tot. Refills 0, Lianne... Start Date: 03/15/22 Status: Ordered Combivent 103 mcg-18 mcg/inh inhalation [...] Dry Weight Start Date: 11/20/21 Status: Ordered docusate sodium 50 mg oral capsule 2 capsule = 100 mg, By Mouth, 2 times a day, # 120 capsule, 0 Refills, Maintenance, 03/15/22 5:23:00 EDT, Capsule, [facility]/pharmacy #[id number], Partial fill upon patient request if the prescription is for a schedule II opioid drug., 61, cm, 03/15/22 0:26:00 ED... Start Date: 03/15/22 Status: Ordered FREESTYLE LITE TEST STRIP FREESTYLE LITE TEST STRIP, See Instructions, # 100 Unknown, 1 Refills, CHECK BLOOD SUGARS 4 TIMES ADAY. FASTING, AFTER BREAKFAST, AFTER LUNCH, AFTER DINNER, 155, cm, 01/30/22 11:20:00 EDT, Height, 108.1, kg, 02/17/22 19:24:00 EDT, Dry Weight Start Date: 02/18/22 Status: Ordered ibuprofen 800 mg oral tablet 800 mg, 1, tablet, By Mouth, Every 8 hours, (4-6), may give 400mg per patient preference and re-dose with 400mg within 8 hours, if needed. Patient should only receive a total of 800mg of Ibuprofen every 8 hours., # 90 tablet, Refills 0, Tot. Refills... Start Date: 03/15/22 Status: Ordered levothyroxine 150 mcg (0.15 mg) oral tablet 1 tablet = 150 mcg, By Mouth, Daily, 0 Refills, Maintenance, 10/23/20 10:03:00 EST, Partial fill upon patient request if the prescription is for a schedule II opioid drug. Start Date: 10/23/20 Status: Ordered oxyCODONE 5 mg oral tablet 5 mg, 1, tablet, By Mouth, Every 3 hours, PRN, (7-10), # 5 tablet, Refills 0, Tot. Refills 0, Maintenance, Pain , Severe, 03/15/22 5:23:00 EDT, Route to Pharmacy Electronically, [facility]/pharmacy #[id number], Partial fill upon patient request if the prescription... Start Date: 03/15/22 Status: Ordered PNV Plus oral tablet 1 [...] hypertension monitoring(Confirmed) Active Carpal tunnel syndrome(Confirmed) Active History of recurrent miscarriages(Confirmed) Active Bharat thyroiditis(Confirmed) Active Hx of bariatric surgery(Confirmed) Active Hypothyroidism, postsurgical(Confirmed) Active Severe obesity(Confirmed) Active Social History Social History Type Response Smoking Status Never (less than 100 in lifetime) entered on: 08/27/21 Sex
--- OUTSIDE RECORDS SUMMARY | 2024-01-28 06:09 | XMS_ITS | Continuity of Care Document ---
Author Organization [facility] [employer] [employer] Address [address] [place] [address], [address] [place] [address]- Care Team Providers Care Alternative Education Teacher Name Role Phone Name [place] HUYNH Primary Care Physician [phone] Encounter [facility] R [id number] Date(s): 01/16/22 - 01/23/22 [facility] [address], [address] [place] [address]- Attending Physician: Diego Pope MD Allergies, Adverse Reactions, Alerts Substance Reaction Severity Status naproxen swollen eyes Moderate Active Bactrim Active Vannesa Active Adhesive Bandage Active Immunizations Given and Recorded Vaccine Date Status Refusal Reason tetanus/diphtheria/pertussis, acel(Tdap) 01/16/22 Given influenza virus vaccine, inactivated 08/29/21 Give n Medications aspirin 81 mg oral tablet, chewable 162 mg, 2, tablet, Chew, Daily, # 60 tablet, Refills 8, Tot. Refills 8, Maintenance, 08/29/21 9:42:00 EST, Route to Pharmacy Electronically, [facility]/pharmacy #[id number], Partial fill upon patient request if the [...] Active Recurrent loss(Confirmed) Active Severe obesity(Confirmed) Active Vital Signs Most recent to oldest [Reference Range]: 1 Height 155 cm (01/16/22 11:13 AM) Weight 105.75 kg (01/16/22 11:13 AM) Body Mass Index [18.5-24.99] 44.02 *>HHI* (01/16/22 11:13 AM) Blood Pressure [90-138/55-84 mm Hg] 110/ 63mm Hg (01/16/22 11:13 AM) Blood pressure sites Arm, right (01/16/22 11:13 AM) Weight Obtained Via Standing scale (01/16/22 11:13 AM) Social History Social History Type Response Smoking Status Never (less than 100 in lifetime) entered on: 08/27/21 Sex
--- OUTSIDE RECORDS SUMMARY | 2024-01-28 06:09 | XMS_ITS | Continuity of Care Document ---
Author Organization [facility] Address [address] [place] [address]- Care Team Providers Care Collar Stitcher Name Role Phone Name [place] HUYNH Primary Care Physician Encounter [facility] Date(s): 12/16/21 - 01/15/[address] [address]- Allergies, Adverse Reactions, Alerts Substance Reaction Severity Status naproxen swollen eyes Moderate Active Bactrim Active Adhesive Bandage Active Vannesa Active Immunizations Given and Recorded Vaccine Date Status Refusal Reason influenza virus vaccine, inactivated 08/29/21 Give n Medications aspirin 81 mg oral tablet, chewable 162 mg, 2, tablet, Chew, Daily, # 60 tablet, Refills 8, Tot. Refills 8, Maintenance, 08/29/21 9:42:00 EST, Route to Pharmacy Electronically, [facility]/pharmacy #[id number], Partial fill upon patient request if the [...] Dry Weight Start Date: 11/20/21 Status: Ordered Freestyle Lite Lancets See Instructions, # 100 each, Refills 1, Tot. Refills 1, Maintenance, Check Blood Sugars 4 times a day. Fasting, after breakfast, after lunch, after dinner, 08/29/21 10:11:00 EST, Supply, 155, cm, 08/29/21 9:15:00 EST, Height, 101.2, kg, 08/27/21 15:4... Start Date: 08/29/21 Status: Ordered Freestyle Lite Monitor See Instructions, # 1 kit, Maintenance, Check Blood Sugars 4 times a day. Fasting, after breakfast,after lunch, and after dinner, 08/29/21 10:11:00 EST, Supply, 155, cm, 08/29/21 9:15:00 EST, Height, 101.2, kg, 08/27/21 15:49:00 EST, Dry Weight Start Date: 08/29/21 Status: Ordered FREESTYLE LITE TEST STRIP FREESTYLE LITE TEST STRIP, See Instructions, # 100 Unknown, 1 Refills, CHECK BLOOD SUGARS 4 TIMES ADAY. FASTING, AFTER BREAKFAST, AFTER LUNCH, AFTER DINNER, 155, cm, 12/19/21 13:01:00 EDT, Height, 105, kg, 12/19/21 13:01:00 EDT, Dry Weight Start Date: 12/24/21 Status: Ordered FREESTYLE LITE TEST STRIP FREESTYLE LITE TEST STRIP, See Instructions, # 100 Unknown, 1 Refills, CHECK BLOOD SUGARS 4 TIMES ADAY. FASTING, AFTER BREAKFAST, AFTER LUNCH, AFTER DINNER, 155, cm, 09/25/21 10:47:00 EST, Height, 101.2, kg, 08/27/21 15:49:00 EST, Dry Weight Start Date: 10/04/21 Status: Ordered Freestyle Lite Test Strips See Instructions, # 100 each, Refills 1, Tot. Refills 1, Maintenance, Check Blood Sugars 4 times a day. Fasting, after breakfast, after lunch, after dinner, 08/29/21 10:11:00 EST, Supply, 155, cm, 08/29/21 9:15:00 EST, Height, 101.2, kg, 08/27/21 15:4... Start Date: 08/29/21 Status: Ordered levothyroxine 150 mcg (0.15 mg) [...]
--- OUTSIDE RECORDS SUMMARY | 2024-01-28 06:09 | XMS_ITS | Continuity of Care Document ---
Author Organization [facility] Address [address] [place] [address], [address] [place] [address]- Care Team Providers Care Industrial Radiographer Name Role Phone Name [place] HUYNH Primary Care Physician [phone] Encounter [facility] Date(s): 10/17/20 - 11/16/20 [facility] [address], 4[address] [place], [place] [address] Allergies, Adverse Reactions, Alerts Substance Reaction Severity Status naproxen swollen eyes Moderate Active Bactrim Active Adhesive Bandage Active Vannesa Active Medications Combivent 103 mcg-18 mcg/inh inhalation aerosol with adapter 2 puffs, Inhalation, 4 times a day, PRN Wheezing/Shortness of Breath, 0 Refills, Maintenance Start Date: 06/16/13 Status: Ordered doxycycline hyclate 100 mg oral capsule 1 capsule = 100 mg, By Mouth, Every 12 hours, for 10 days, with fluids, take with food to minimize abdominal discomfort, # 20 capsule, 0 Refills, Acute 11/17/20 15:20:00 EST, 11/07/20 15:20:00 EST, Capsule, [id number], Partial fill upon patien... Start Date: 11/07/20 Stop Date: 11/17/20 Status: Ordered estradiol 2 mg oral tablet 1 tablet = 2 mg, By Mouth, 2 times a day, # 60 tablet, 1 Refills, Maintenance, 11/06/20 16:46:00 EST, [id number], Partial fill upon patient request if the prescription is for a schedule II opioid drug., 155, cm, 10/23/20 10:00:00 EST, Height Start Date: 11/06/20 Stop Date: 01/05/21 Status: Ordered ibuprofen 600 mg oral tablet 600 mg, 1, tablet, By Mouth, 4 times a day, PRN, # 40 tablet, Refills 0, Tot. Refills 0, Acute 12/08/20 15:04:00 EDT, for pain, 11/06/20 15:03:00 EST, Route to Pharmacy Electronically, [facility]/pharmacy #[id number], Partial fill upon patient request if the pres... Start Date: 11/06/20 Stop Date: 12/08/20 Status: Ordered Lessina 100 mcg-20 mcg oral tablet 1 tablet, By Mouth, Daily, Begin taking 1 ACTIVE Tablet on first day of period continuously, continue taking until instructed to stop by physician, # 28 tablet, 1 Refills, Maintenance, 10/23/20 12:34:00 EST, [id number], Partial fill upon patie... Start Date: 10/23/20 Status: Ordered levothyroxine 150 mcg (0.15 mg) oral tablet 1 tablet = 150 mcg, By Mouth, Daily, 0 Refills, Maintenance, 10/23/20 10:03:00 EST, Partial fill upon patient request if the prescription is for a schedule II opioid drug. Start Date: 10/23/20 Status: Ordered Multivitamin Daily, 0 Refills, Maintenance, 11/27/17 8:05:19 Start Date: 11/27/17 Status: Ordered oxyCODONE 5 mg oral tablet 5 mg, 1, tablet, By Mouth, Every 6 hours, PRN, # 6 tablet, Refills 0, Tot. Refills 0, Acute 12/07/20 17:03:00 EDT, as needed for pain, 11/06/20 17:03:00 EST, Route to Pharmacy Electronically, [facility]/pharmacy #[id number], Partial fill upon patient request if th... Start Date: 11/06/20 Stop Date: 12/07/20 Status: Ordered Multivitamins By Mouth, Daily, 0 Refills, Maintenance, 10/23/20 10:04:00 EST, Partial fill upon patient request if the prescription is for a schedule II opioid drug. 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 Social History Social History Type Response Smoking Status Never (less than 100 in lifetime) entered on: 07/31/20 Sex
--- OUTSIDE RECORDS SUMMARY | 2024-01-28 06:09 | XMS_ITS | Continuity of Care Document ---
Author Organization [facility] [employer] [employer] [facility] Address [address] [place] [address], [address] [address]- Care Team Providers Care Aerodynamics Professor Name Role Phone Name [place] HUYNH Primary Care Physician Encounter [facility] Date(s): 12/30/21 - 01/29/22 [facility] [employer] [facility] [address], [address] [place] [address]- Allergies, Adverse Reactions, Alerts Substance Reaction Severity [...] 08/29/21 9:42:00 EST, Route to Pharmacy Electronically, [facility]/pharmacy #[id number], Partial fill upon patient request if the [...]
--- OUTSIDE RECORDS SUMMARY | 2024-01-28 06:09 | XMS_ITS | Continuity of Care Document ---
Author Organization [facility] Address [address], [address] [place] [address]- Care Team Providers Care Chronic Disease Manager Name Role Phone Name [place] HUYNH Primary Care Physician Encounter [facility] Date(s): 12/13/21 - 04/12/22 [facility] [address], [address] [place] [address]- Attending Physician: Diego Pope MD Allergies, Adverse [...] 0 Refills, Maintenance, 03/15/22 5:23:00 EDT, Capsule, [facility]/pharmacy #[id number], Partial fill upon patient [...] 03/15/22 5:23:00 EDT, Route to Pharmacy Electronically, [facility]/pharmacy #[id number], Partial fill upon patient request if the prescription... Start Date: 03/15/22 Status: Ordered PNV Plus oral tablet 1 tablet, By Mouth, Daily, # 90 tablet, 1 Refills, Maintenance, 10/07/21 16:30:00 EST, [facility]/pharmacy#[id number], Partial fill upon patient request if the [...] 3 Refills, Maintenance, 11/01/21 8:47:00 EST, Capsule, [facility]/pharmacy #[id number], Partial fill upon patient [...]
--- OUTSIDE RECORDS SUMMARY | 2024-01-28 06:09 | XMS_ITS | Continuity of Care Document ---
Author Organization [facility] Address [address] [place] [address]- Care Team Providers Care Research & Analytics Manager Name Role Phone Sebastien HUYNH, Lashae Lozano Primary Care Physician Encounter [facility] Date(s): 01/16/23 - 02/15/23 [facility] [address] [place], [place] [address] Allergies, Adverse Reactions, Alerts Substance Reaction [...] inactivated 06/20/08 Kaleb rded tetanus-diphtheria toxoids (Td) 12/17/04 Recorded Medications Combivent Respimat 20 mcg-100 mcg/inh inhalation aerosol 1 puffs, Inhalation, 4 times a day, # 4 mL, 3 Refills, Maintenance, 09/15/22 8:02:00 EST, [facility] [id number], 30, TAKE 1 PUFF BY MOUTH 4 TIMES A DAY, 154.9, cm, 08/21/22 10:34:00 EST, Height, 96, kg, 04/17/22 14:30:00 EDT, Dry Weight Start Date: 09/15/22 Status: Ordered diclofenac 1% topical gel 1 application, Topically, 4 times a day, PRN Pain , Moderate, # 100 Gm, 1 Refills, Maintenance, 06/03/22 11:10:00 EDT, Gel, [facility]/pharmacy #[id number], Partial fill upon patient request if the prescription is for a schedule II opioid drug., 61, cm, 05/30/22 1... Start Date: 06/03/22 Status: Ordered ibuprofen 600 mg oral tablet 600 mg, 1, tablet, By Mouth, Every 6 hours, PRN, # 40 tablet, Refills 0, Tot. Refills 0, Maintenance, Pain , Mild, 07/18/22 14:31:00 EST, Route to Pharmacy Electronically, [facility]/pharmacy #[id number], Partialfill upon patient request if the [...] tablet, 1 Refills, Maintenance, 10/07/22 7:38:00 EST, [id number], 90, TAKE 1 TABLET BY MOUTH EVERY DAY, 154.9, cm, 09/30/22 16:07:00 EST, Height, 96, kg, 04/17/2214:30:00 EDT, Dry Weight Start Date: 10/07/22 Status: Ordered sertraline 25 mg oral tablet 1 tablet = 25 mg, By Mouth, Daily in AM, # 30 tablet, 3 Refills, Maintenance, 12/31/22 9:46:00 EDT,Tablet, [id number], Partial fill upon patient request if the [...] Personnel Name: Lashae Crowe MD, V Position: [facility] Physician - Primary Care Member Role: PCP Address: Address: [address] [place] [address] Name: Dee Dee Roberts Position: [facility] Outreach Member Role: Lifetime Consulting Physician Care Team Related Persons Name: JUSTIN PEPPER Address: [address] [address] Name: KAIN BROOKS Address: [id number] Address: home [address] [address] [place] Name: TARSHA DANGELO Address: home [address] [address]
--- OUTSIDE RECORDS SUMMARY | 2024-01-28 06:09 | XMS_ITS | Continuity of Care Document ---
Author Organization [facility] Address [address] [place] [address] [address] [place] [address]- Care Team Providers Care Cottage Supervisor Name Role Phone Lashae Crowe MD, V Primary Care Physician [phone] Encounter [facility] Date(s): 05/28/23 - 06/27/23 [facility] [address] [place] [address]- Attending Physician: AdmtrWhitney Admitting Physician: Admtr, Ar8 Referring Physician: Admtr, Ar8 Allergies, Adverse Reactions, Alerts Substance Reaction Severity [...] mL, 3 Refills, Maintenance, 09/15/22 8:02:00 EST, [facility] [id number], 30, TAKE 1 PUFF BY MOUTH 4 TIMES A DAY, 154.9, cm, 08/21/22 10:34:00 EST, Height, 96, kg, 04/17/22 14:30:00 EDT, Dry Weight Start Date: 09/15/22 Status: Ordered diclofenac 1% topical gel 1 application, Topically, 4 times a day, PRN Pain , Moderate, # 100 Gm, 3 Refills, Maintenance, 05/18/23 11:18:00 EDT, Gel, [facility]/pharmacy #[id number], Partial fill upon patient request if the prescription is for a schedule II opioid drug., 154, cm, 12/19/22... Start Date: 05/18/23 Status: Ordered ibuprofen 600 mg oral tablet 600 mg, 1, tablet, By Mouth, Every 6 hours, PRN, # 40 tablet, Refills 0, Tot. Refills 0, Maintenance, Pain , Mild, 07/18/22 14:31:00 EST, Route to Pharmacy Electronically, [facility]/pharmacy #[id number], Partialfill upon patient request if the prescription is fo... Start Date: 07/18/22 Status: Ordered levothyroxine 175 mcg (0.175 mg) oral tablet 90 each, TAKE 1 TABLET BY MOUTH EVERY DAY, 0 Refills, 05/15/22 9:08:00 EDT, Partial fill upon patient request if the prescription is for a schedule II opioid drug. Start Date: 05/15/22 Status: Ordered phentermine 37.5 mg oral capsule 1 capsule = 37.5 mg, By Mouth, Daily in AM, # 30 capsule, 3 Refills, Maintenance, 05/05/23 12:09:00EDT, Capsule, [facility]/pharmacy #[id number], Partial fill upon patient request if the prescription is for a schedule II opioid drug., 154, cm, 12/19/22 13:01:00 E... Start Date: 05/05/23 Status: Ordered Plus Low Iron oral tablet 1 tablet, By Mouth, Daily, # 90 tablet, 1 Refills, Maintenance, 10/07/22 7:38:00 EST, [id number], 90, TAKE 1 TABLET BY MOUTH EVERY DAY, 154.9, cm, 09/30/22 16:07:00 EST, Height, 96, kg, 04/17/2214:30:00 EDT, Dry Weight Start Date: 10/07/22 Status: Ordered sertraline 25 mg oral tablet 1 tablet, By Mouth, Daily in AM, # 90 tablet, 1 Refills, Maintenance, 04/27/23 9:08:00 EDT, [id number], 154, cm, 12/19/22 13:01:00 EDT, Height, 108, kg, 11/04/22 10:06:00 EST, Dry Weight Start Date: 04/27/23 Status: Ordered Problem List Condition Confirmation Course [...] Personnel Name: Lashae Crowe MD, V Position: [facility] Physician - Primary Care Member Role: PCP Address: Address: [address] [place] [address]- Name: Dee Dee Roberts Position: [facility] Outreach Member Role: Lifetime Consulting Physician Care Team Related Persons Name: JUSTIN PEPPER Address: home [address] [address] Name: KAIN BROOKS Address: [address] Address: home [address] [address] [place] Name: TARSHA DANGELO Address: home [address] [address]
--- OUTSIDE RECORDS SUMMARY | 2024-01-28 06:09 | XMS_ITS | Continuity of Care Document ---
Author Organization [facility] Address [address] [place] [address]- Care Team Providers Care Pan Helper Name Role Phone Sebastien HUYNH, Lashae Lozano Primary Care Physician Encounter [facility] Date(s): 07/18/22 - 08/17/22 [facility] [address] [place], [place] [address] Attending Physician: Whitney Cheng Admitting Physician: AdmtrWhitney Referring Physician: Admtr, Ar8 Allergies, Adverse Reactions, [...] rded tetanus-diphtheria toxoids (Td) 08/23/04 Recorded Medications albuterol-ipratropium 100 mcg-20 mcg/inh inhalation aerosol 1 puffs, Inhalation, 4 times a day, # 4 Gm, 3 Refills, Maintenance, 05/15/22 9:21:00 EDT, Aerosol, [id number], Partial fill upon patient request if the prescription is for a schedule II opioid drug., 1 puffs Inhalation 4 times a day, 61, cm, 0... Start Date: 05/15/22 Status: Ordered diclofenac 1% topical gel 1 application, Topically, 4 times a day, PRN Pain , Moderate, # 100 Gm, 1 Refills, Maintenance, 06/03/22 11:10:00 EDT, Gel, [facility]/pharmacy #[id number], Partial fill upon patient request if the prescription is for a schedule II opioid drug., 61, cm, 05/30/22 1... Start Date: 06/03/22 Status: Ordered ibuprofen 600 mg oral tablet 600 mg, 1, tablet, By Mouth, Every 6 hours, PRN, # 40 tablet, Refills 0, Tot. Refills 0, Maintenance, Pain , Mild, 07/18/22 14:31:00 EST, Route to Pharmacy Electronically, [facility]/pharmacy #[id number], Partialfill upon patient request if the prescription is fo... Start Date: 07/18/22 Status: Ordered levothyroxine 175 mcg (0.175 mg) oral tablet 90 each, TAKE 1 TABLET BY MOUTH EVERY DAY, 0 Refills, 05/15/22 9:08:00 EDT, Partial fill upon patient request if the prescription is for a schedule II opioid drug. Start Date: 05/15/22 Status: Ordered liraglutide 18 mg/3 mL subcutaneous solution = 0.6 mg, Subcutaneous Injection, Daily, # 9 mL, 0 Refills, Maintenance, 07/01/22 9:17:00 EDT, Solution, [id number], Partial fill upon patient request if the prescription is for a schedule IIopioid drug., 154.9, cm, 06/26/22 11:28:00 EDT, Hei... Start Date: 07/01/22 Stop Date: 07/08/22 Status: Ordered semaglutide 0.25 mg/0.5 mL (0.25 mg dose) subcutaneous solution = 0.25 mg, Subcutaneous Infusion, Every week, Administer by SUBQ injection into the abdomen, thigh,or upper arm at any time of day on the same day each week, with or without food. If changing the day of administration is necessary, allow =48 hours be... 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 Hx of bariatric surgery Confirmed Active Bilateral tennis elbow Confirmed Active Left knee pain Confirmed Active Encounter for general health examination Confirmed Active Hypothyroidism, postsurgical Confirmed Active Severe obesity Confirmed Active Social History Social History Type Response Smoking Status Never (less than 100 in lifetime) entered on: 08/27/21 Sex Note * Event Display: CT Scan Neck, Non- BH Authored Date: * Event Display: Ultrasound Neck, Non-BH Authored Date: * Event Display: Ultrasound Neck, Non-BH Authored Date: * Event Display: [place] Nuclear Medicine, Non- Authored Date: * Event Display: Ultrasound Neck, Non-BH Authored Date: * Event Display: Non BH Lab Results Authored Date: * Event Display: Non BH Lab Results Authored Date: * Event Display: Non BH Lab Results Authored Date: * Event Display: Non BH Cardiovascular Results Authored Date: * Event Display: EKG Non BH Authored Date: Patient Care team information Care Team Personnel Name: Lashae Crowe MD, V Position: [facility] Primary Care Physician Member Role: PCP Address: Address: [address] [place] [address]- Care Team Related Persons Name: SHANTELLE JUSTIN Address: home [address] [address] Name: KAIN BROOKS Address: [address] Address: home [address] [address] [place] Name: TARSHA DANGELO Address: [place] [address] [address]
--- OUTSIDE RECORDS SUMMARY | 2024-01-28 06:09 | XMS_ITS | Continuity of Care Document ---
Author Organization [facility] Address [address] [place] [address]- Care Team Providers Care Fan Installer Name Role Phone Sebastien HUYNH, Lashae Lozano Primary Care Physician [facility]counter [facility] Date(s): 06/19/22 - 07/19/22 [facility] [address] [place], [place] [address] Allergies, Adverse Reactions, Alerts Substance Reaction [...] 3 Refills, Maintenance, 05/15/22 9:21:00 EDT, Aerosol, [facility]/pharmacy #[id number], Partial fill upon patient request if the prescription is for a schedule II opioid drug., 1 puffs Inhalation 4 times a day, 61, cm, 0... Start Date: 05/15/22 Status: Ordered diclofenac 1% topical gel 1 application, Topically, 4 times a day, PRN Pain , Moderate, # 100 Gm, 1 Refills, Maintenance, 06/03/22 11:10:00 EDT, Gel, [facility]/pharmacy #[id number], Partial fill upon patient request if the prescription is for a schedule II opioid drug., 61, cm, 05/30/22 1... Start Date: 06/03/22 Status: Ordered ibuprofen 600 mg oral tablet 600 mg, 1, tablet, By Mouth, Every 6 hours, PRN, # 40 tablet, Refills 0, Tot. Refills 0, Maintenance, Pain , Mild, 07/18/22 14:31:00 EST, Route to Pharmacy Electronically, [facility]/pharmacy #[id number], Partialfill upon patient request if [...] 0 Refills, Maintenance, 07/01/22 9:17:00 EDT, Solution, [facility]/pharmacy #[id number], Partial fill upon patient request [...] 100 in lifetime) entered on: 08/27/21 Sex Patient Care team information Care Team Personnel Name: Lashae Crowe MD, V Position: [facility] Primary Care Physician Member Role: PCP Address: Address: [address] [place] [address]- Care Team Related Persons Name: JUSTIN PEPPER Address: home [address] [address] Name: KAIN BROOKS Address: [address] Address: home [address] [address] Name: TARSHA DANGELO Address: home [address] [address]
--- OUTSIDE RECORDS SUMMARY | 2024-01-28 06:09 | XMS_ITS | Continuity of Care Document ---
Author Organization [facility] Address [address] [place] [address]- Care Team Providers Care German Professor Name Role Phone Lashae Crowe MD, V Primary Care Physician [facility]counter [facility] Date(s): 09/25/22 - 10/25/22 [facility] [address] [place], [place] [address] Allergies, Adverse Reactions, Alerts [...] rded tetanus-diphtheria toxoids (Td) 08/23/04 Recorded Medications barium sulfate 2% oral suspension See Instructions, Please dispense 2 bottles each 450 ml #900 ml, # 2 each, 0 Refills, Maintenance, 10/17/22 11:33:00 EST, [facility]/pharmacy #[id number], Partial fill upon patient request if the prescription is for a schedule II opioid drug., Please dispense 2... Start Date: 10/17/22 Status: Ordered Combivent Respimat 20 mcg-100 mcg/inh inhalation aerosol 1 puffs, Inhalation, 4 times a day, # 4 mL, 3 Refills, Maintenance, 09/15/22 8:02:00 EST, [facility] [id number], 30, TAKE 1 PUFF BY MOUTH 4 TIMES A DAY, 154.9, cm, 08/21/22 10:34:00 EST, Height, 96, kg, 04/17/22 14:30:00 EDT, Dry Weight Start Date: 09/15/22 Status: Ordered diclofenac 1% topical gel 1 application, Topically, 4 times a day, PRN Pain , Moderate, # 100 Gm, 1 Refills, Maintenance, 06/03/22 11:10:00 EDT, Gel, [facility]/pharmacy #[id number], Partial fill upon patient request if the prescription is for a schedule II opioid drug., 61, cm, 05/30/22 1... Start Date: 06/03/22 Status: Ordered ibuprofen 600 mg oral tablet 600 mg, 1, tablet, By Mouth, Every 6 hours, PRN, # 40 tablet, Refills 0, Tot. Refills 0, Maintenance, Pain , Mild, 07/18/22 14:31:00 EST, Route to Pharmacy Electronically, [facility]/pharmacy #[id number], Partialfill upon patient request if [...] Date: 07/01/22 Stop Date: 07/08/22 Status: Ordered Plus Low Iron oral tablet 1 tablet, By Mouth, Daily, # 90 tablet, 1 Refills, Maintenance, 10/07/22 7:38:00 EST, [id number], 90, TAKE 1 TABLET BY MOUTH EVERY DAY, 154.9, cm, 09/30/22 16:07:00 EST, Height, 96, kg, 04/17/2214:30:00 EDT, Dry Weight Start Date: 10/07/22 Status: Ordered semaglutide 0.25 mg/0.5 mL (0.25 [...] Confirmed Active Carpal tunnel syndrome Confirmed Active Chronic epigastric pain Confirmed Active 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 Hx of bariatric surgery Confirmed Active Gallbladder hydrops Confirmed Active Bilateral tennis elbow Confirmed Active Left knee pain Confirmed Active Encounter for general health examination Confirmed Active Hypothyroidism, postsurgical Confirmed Active Severe obesity Confirmed Active Social History Social History Type Response Smoking Status Never (less than 100 in lifetime) entered on: 07/31/20 Sex Patient Care team information Care Team Personnel Name: Lashae Crowe MD, V Position: S Primary Care Physician Member Role: PCP Address: Address: [address] [place] [address]- Care Team Related Persons Name: JUSTIN PEPPER Address: home [address] [address] Name: TODD KAIN Address: [address] Address: home [address] [address] Name: TARSHA DANGELO Address: [address] [facility] [address]
--- OUTSIDE RECORDS SUMMARY | 2024-01-28 06:09 | XMS_ITS | Continuity of Care Document ---
Author Organization [facility] Address Unknown Care Team Providers Care Belt Notcher Name Role Phone Name Boston HUYNH Primary Care Physician Encounter [facility] Date(s): 05/24/21 - 06/23/21 [facility] Allergies, Adverse Reactions, Alerts Substance [...] tablet, 1 Refills, Maintenance, 11/06/20 16:46:00 EST, [facility]/pharmacy #[id number], Partial fill upon patient request if [...] Replace Required Details, Route to Pharmacy Electronically, [id number], Partial fill upo... Start Date: 11/22/20 [...] opioid drug. Start Date: 10/23/20 Status: Ordered Provera 10 mg oral tablet 10 mg, 1, tablet, By Mouth, Daily, start tomorrow if test is negative, # 10 tablet, Refills 0, Tot. Refills 0, Maintenance, 12/13/20 13:05:00 EDT, Route to Pharmacy Electronically, [facility]/pharmacy #[id number], Partial fill upon patient request if the... 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
--- OUTSIDE RECORDS SUMMARY | 2024-01-28 06:09 | XMS_ITS | Continuity of Care Document ---
Author Organization [facility] Address [address] [place] [address]- Care Team Providers Care Garnett Machine Operator Helper Name Role Phone Sebastien HUYNH, Lashae Lozano Primary Care Physician Encounter [facility] Date(s): 01/06/23 - 05/06/23 [facility] [address] [place], [place] [address] Attending Physician: Lashae Crowe MD, V Allergies, Adverse Reactions, Alerts Substance Reaction Severity [...] mL, 3 Refills, Maintenance, 09/15/22 8:02:00 EST, [facility] [id number], 30, TAKE 1 PUFF BY MOUTH 4 TIMES A DAY, 154.9, cm, 08/21/22 10:34:00 EST, Height, 96, kg, 04/17/22 14:30:00 EDT, Dry Weight Start Date: 09/15/22 Status: Ordered diclofenac 1% topical gel 1 application, Topically, 4 times a day, PRN Pain , Moderate, # 100 Gm, 1 Refills, Maintenance, 06/03/22 11:10:00 EDT, Gel, [facility]/pharmacy #[id number], Partial fill upon patient request if the prescription is for a schedule II opioid drug., 61, cm, 05/30/22 1... Start Date: 06/03/22 Status: Ordered ibuprofen 600 mg oral tablet 600 mg, 1, tablet, By Mouth, Every 6 hours, PRN, # 40 tablet, Refills 0, Tot. Refills 0, Maintenance, Pain , Mild, 07/18/22 14:31:00 EST, Route to Pharmacy Electronically, [facility]/pharmacy #[id number], Partialfill upon patient request if [...] capsule, 3 Refills, Maintenance, 05/05/23 12:09:00EDT, Capsule, [facility]/pharmacy #[id number], Partial fill upon patient request if the prescription is for a schedule II opioid drug., 154, cm, 12/19/22 13:01:00 E... Start Date: 05/05/23 Status: Ordered Plus Low Iron oral tablet 1 tablet, By Mouth, Daily, # 90 tablet, 1 Refills, Maintenance, 10/07/22 7:38:00 EST, [id number], 90, TAKE 1 TABLET BY MOUTH EVERY DAY, 154.9, cm, 09/30/22 16:07:00 EST, Height, 96, kg, 04/17/2214:30:00 EDT, Dry Weight Start Date: 10/07/22 Status: Ordered sertraline 25 mg oral tablet 1 tablet, By Mouth, Daily in AM, # 90 tablet, 1 Refills, Maintenance, 04/27/23 9:08:00 EDT, [id number], 154, cm, 12/19/22 13:01:00 EDT, Height, 108, [...] Personnel Name: Lashae Crowe MD, V Position: [facility] Physician - Primary Care Member Role: PCP Address: Address: [address] [place] [address] Name: Dee Dee Roberts Position: [facility] Outreach Member Role: Lifetime Consulting Physician Care Team Related Persons Name: JUSTIN PEPPER Address: home [address] [address] Name: KAIN BROOKS Address: [address] Address: home [address] [address] [place] Name: TARSHA DANGELO Address: home [address] [address]
--- OUTSIDE RECORDS SUMMARY | 2024-01-28 06:09 | XMS_ITS | Continuity of Care Document ---
Author Organization [facility] Address [address] [place] [address]- Care Team Providers Care Dealership General Manager Name Role Phone Sebastien HUYNH, Lashae Lozano Primary Care Physician Encounter [facility] Date(s): 04/30/23 - 06/04/[address] [address] Attending Physician: Lisa Urena MD Admitting Physician: Lisa Urena MD Allergies, Adverse Reactions, Alerts Substance Reaction [...] 08/14/09 Kaleb rded influenza virus vaccine, inactivated 10/14/08 Kaleb rded tetanus-diphtheria toxoids (Td) 08/23/04 Recorded Medications Combivent Respimat 20 mcg-100 mcg/inh inhalation aerosol 1 puffs, Inhalation, 4 times a day, # 4 mL, 3 Refills, Maintenance, 09/15/22 8:02:00 EST, [facility] [id number], 30, TAKE 1 PUFF BY MOUTH 4 TIMES A DAY, 154.9, cm, 08/21/22 10:34:00 EST, Height, 96, kg, 04/17/22 14:30:00 EDT, Dry Weight Start Date: 09/15/22 Status: Ordered diclofenac 1% topical gel 1 application, Topically, 4 times a day, PRN Pain , Moderate, # 100 Gm, 3 Refills, Maintenance, 05/18/23 11:18:00 EDT, Gel, [facility]/pharmacy #[id number], Partial fill upon patient request if the prescription is for a schedule II opioid drug., 154, cm, 12/19/22... Start Date: 05/18/23 Status: Ordered ibuprofen 600 mg oral tablet 600 mg, 1, tablet, By Mouth, Every 6 hours, PRN, # 40 tablet, Refills 0, Tot. Refills 0, Maintenance, Pain , Mild, 07/18/22 14:31:00 EST, Route to Pharmacy Electronically, [facility]/pharmacy #[id number], Partialfill upon patient request [...] capsule, 3 Refills, Maintenance, 05/05/23 12:09:00EDT, Capsule, [facility]/pharmacy #[id number], Partial fill upon patient request if the prescription is for a schedule II opioid drug., 154, cm, 12/19/22 13:01:00 E... Start Date: 05/05/23 Status: Ordered Plus Low Iron oral tablet 1 tablet, By Mouth, Daily, # 90 tablet, 1 Refills, Maintenance, 10/07/22 7:38:00 EST, [id number], 90, TAKE 1 TABLET BY MOUTH EVERY DAY, 154.9, cm, 09/30/22 16:07:00 EST, Height, 96, kg, 04/17/2214:30:00 EDT, Dry Weight Start Date: 10/07/22 Status: Ordered sertraline 25 mg oral tablet 1 tablet, By Mouth, Daily in AM, # 90 tablet, 1 Refills, Maintenance, 04/27/23 9:08:00 EDT, [id number], 154, cm, 12/19/22 13:01:00 EDT, Height, 108, [...] Personnel Name: Lashae Crowe MD, V Position: [facility] Physician - Primary Care Member Role: PCP Address: Address: [address] [place] [address]- Name: Dee Dee Roberts Position: [facility] Outreach Member Role: Lifetime Consulting Physician Care Team Related Persons Name: JUSTIN PEPPER Address: home [address] Name: TODD KAIN Address: [address] Address: home [address] [address] [place] Name: TARSHA DANGELO Address: home [address]
--- OUTSIDE RECORDS SUMMARY | 2024-01-28 06:10 | XMS_ITS | Continuity of Care Document ---
Author Organization [facility] Address [address] [place] [address]- Care Team Providers Care Travel Services Professional Name Role Phone Lashae Crowe MD, V Primary Care Physician Encounter [facility] Date(s): 04/24/22 - 05/24/22 [facility] [address] [place], [place] [address] Allergies, Adverse Reactions, Alerts Substance Reaction Severity Status naproxen swollen eyes Moderate Active Bactrim Active Adhesive Bandage Active Vannesa Active Immunizations Given and Recorded Vaccine Date Status Refusal Reason tetanus/diphtheria/pertussis, acel(Tdap) 01/16/22 Given SARS-CoV-2 (COVID-19) mRNA-1273 vaccine 09/13/21 R ecorded SARS-CoV-2 (COVID-19) mRNA-1273 vaccine 12/14/20 R ecorded SARS-CoV-2 (COVID-19) mRNA-1273 vaccine 11/16/20 R ecorded influenza virus vaccine, inactivated 08/29/21 Give n Medications albuterol-ipratropium 100 mcg-20 mcg/inh inhalation aerosol 1 puffs, Inhalation, 4 times a day, # 4 Gm, 3 Refills, Maintenance, 05/15/22 9:21:00 EDT, [facility], [id number], Partial fill upon patient request if the prescription is for a schedule II opioid drug., 1 puffs Inhalation 4 times a day, 61, cm, 0... Start Date: 05/15/22 Status: Ordered levothyroxine 175 mcg (0.175 mg) oral tablet 90 each, TAKE 1 TABLET BY MOUTH EVERY DAY, 0 Refills, 05/15/22 9:08:00 EDT, Partial fill upon patient request if the prescription is for a schedule II opioid drug. Start Date: 05/15/22 Status: Ordered Problem List Condition Effective Dates Status Health Status Inform ant Asthma(Confirmed) Active Attends hypertension monitoring(Confirmed) Active Carpal tunnel syndrome(Confirmed) Active History of recurrent miscarriages(Confirmed) Active Bharat thyroiditis(Confirmed) Active Hx of bariatric surgery(Confirmed) Active Hypothyroidism, postsurgical(Confirmed) Active Severe obesity(Confirmed) Active Social History Social History Type Response Smoking Status Never (less than 100 in lifetime) entered on: 08/27/21 Sex Care Team Personnel Name: Lashae Crowe MD, V Address: [address] [place] [address]
--- OUTSIDE RECORDS SUMMARY | 2024-01-28 06:10 | XMS_ITS | Continuity of Care Document ---
Author Organization [facility] [place] [employer] [facility] Address [address] [place] [address], [address] [place] [address]- Care Team Providers Care Drum Filler Name Role Phone Name Boston HUYNH Primary Care Physician [phone] Encounter [facility] Date(s): 12/25/21 - 01/24/22 [facility] [facility] [address] [facility], [address] [place] [address]- Allergies, Adverse Reactions, Alerts Substance Reaction Severity [...] 08/29/21 9:42:00 EST, Route to Pharmacy Electronically, [facility]/pharmacy #[id number], Partial fill upon patient request if the [...]
--- OUTSIDE RECORDS SUMMARY | 2024-01-28 06:10 | XMS_ITS | Continuity of Care Document ---
Author Organization [facility] [employer] Address [address] [place] [address], [address] [place] [address]- Care Team Providers Care Bench Machine Operator Name Role Phone Name [place] HUYNH Primary Care Physician [id number] Date(s): 10/28/21 - 11/04/21 [employer] [address] [facility], [address] [place] [address]- Attending Physician: Hilary Mobley MD Referring Physician: Jose HUYNH [OB], Dariana Pena Allergies, Adverse Reactions, Alerts Substance Reaction Severity [...] 08/29/21 9:42:00 EST, Route to Pharmacy Electronically, [facility]/pharmacy #[id number], Partial fill upon patient request [...] tablet, 1 Refills, Maintenance, 11/06/20 16:46:00 EST, [facility]/pharmacy #[id number], Partial fill upon patient request if the prescription is for a schedule II opioid drug., 155, cm, 10/23/20 10:00:00 EST, Height Start Date: 3/2/21 Stop Date: 01/05/21 Status: Ordered Freestyle Lite Lancets See Instructions, [...] 08/27/21 15:4... Start Date: 08/29/21 Status: Ordered ibuprofen 800 mg oral tablet See Instructions, 1 tablet By Mouth 30 minutes prior to procedure, # 5 tablet, Refills 0, Tot. Refills 0, Maintenance, 11/22/20 17:08:00 EDT, Instructions Replace Required Details, Route to Pharmacy Electronically, [facility]/pharmacy #[id number], Partial fill upo... Start Date: 11/22/20 Status: [...] 10:47:00 EST... Start Date: 10/07/21 Status: Ordered Multivitamins By Mouth, Daily, 0 Refills, Maintenance, 10/23/20 10:04:00 EST, Partial fill upon patient request if the prescription is for a schedule II opioid drug. Start Date: 10/23/20 Status: Ordered progesterone 200 mg oral capsule See Instructions, INSERT 2 CAPSULES INTRAVAGINALLY 2 TIMES A DAY, # 120 capsule, 1 Refills, [id number], 155, cm, 01/02/21 9:19:00 EDT, Height Start Date: 08/13/21 Status: Ordered Provera 10 mg oral tablet 10 mg, 1, tablet, By Mouth, Daily, start tomorrow if test is negative, # 10 tablet, Refills 0, Tot. Refills 0, Maintenance, 12/13/20 13:05:00 EDT, Route to Pharmacy Electronically, [facility]/pharmacy #[id number], Partial fill upon patient request if the... Start Date: 12/13/20 Stop Date: 12/23/20 Status: Ordered Vitamin B-12 500 mcg oral [...] Refills, Maintenance, 11/01/21 8:47:00 EST, [facility], [id number], Partial fill upon patient request if the prescription is for aschedule II opioid drug., 155, cm, 10/28/21 11:50:0... 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 Hx of bariatric surgery(Confirmed) Active Hypothyroidism, postsurgical(Confirmed) Active Recurrent loss(Confirmed) Active Severe obesity(Confirmed) Active Vital Signs Most recent to oldest [Reference Range]: 1 Height 155 cm (10/28/21 11:50 AM) Weight 104.09 kg (10/28/21 11:50 AM) Body Mass Index [18.5-24.99] 43.33 *>HHI* (10/28/21 11:50 AM) Blood Pressure [90-138/55-84 mm Hg] 112/ 72mm Hg (10/28/21 11:50 AM) Blood pressure sites Arm, left (10/28/21 11:50 AM) Weight Obtained Via Standing scale (10/28/21 11:50 AM) Social History Social History Type Response Smoking Status Never (less than 100 in lifetime) entered on: 08/27/21 Sex
--- OUTSIDE RECORDS SUMMARY | 2024-01-28 06:10 | XMS_ITS | Continuity of Care Document ---
Author Organization [facility] [employer] [facility] Address [address] [place] [address], [address] [place] [address]- Care Team Providers Care Tenant Relations Coordinator Name Role Phone Name [place] HUYNH Primary Care Physician [phone] [id number] - [facility]27/[facility] [employer] [facility] [address] [facility], [address] [place] [address]- Attending Physician: Diego Pope MD Allergies, Adverse [...] 08/29/21 9:42:00 EST, Route to Pharmacy Electronically, [facility]/pharmacy #[id number], Partial fill upon patient request if the [...] Dry Weight Start Date: 11/20/21 Status: Ordered FREESTYLE LITE TEST STRIP FREESTYLE LITE TEST STRIP, See Instructions, # 100 Unknown, 1 Refills, CHECK BLOOD SUGARS 4 TIMES ADAY. 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 Hx of bariatric surgery(Confirmed) Active Hypothyroidism, postsurgical(Confirmed) Active Severe obesity(Confirmed) Active Vital Signs Most recent to oldest [Reference Range]: 1 Height 155 cm (02/20/22 10:17 AM) Weight 108.97 kg (02/20/22 10:17 AM) Body Mass Index [18.5-24.99] 45.36 *>HHI* (02/20/22 10:17 AM) Blood Pressure [90-138/55-84 mm Hg] 126/ 79mm Hg (02/20/22 10:17 AM) Blood pressure sites Arm, right (02/20/22 10:17 AM) Weight Obtained Via Standing scale (02/20/22 10:17 AM) Social History Social History Type Response Smoking Status Never (less than 100 in lifetime) entered on: 08/27/21 Sex
--- OUTSIDE RECORDS SUMMARY | 2024-01-28 06:10 | XMS_ITS | Continuity of Care Document ---
Author Organization [facility] Address [address] [place] [address]- Care Team Providers Care Table Maker Name Role Phone Sebastien HUYNH, Lashae Lozano Primary Care Physician [phone] Encounter [facility] Date(s): 06/26/22 - 07/03/22 [facility] [address] [place], [place] [address] Attending Physician: Lashae Crowe MD, V [...] Refills, Maintenance, 05/15/22 9:21:00 EDT, [id number], Partial fill upon patient request if the prescription is for a schedule II opioid drug., 1 puffs Inhalation 4 times a day, 61, cm, 0... Start Date: 05/15/22 Status: Ordered diclofenac 1% topical gel 1 application, Topically, 4 times a day, PRN Pain , Moderate, # 100 Gm, 1 Refills, Maintenance, 06/03/22 11:10:00 EDT, Gel, [id number], Partial fill upon patient request if the prescription is for a schedule II opioid drug., 61, cm, 05/30/22 1... Start Date: 06/03/22 Status: Ordered levothyroxine 175 mcg (0.175 mg) [...] 0 Refills, Maintenance, 07/01/22 9:17:00 EDT, Solution, [facility]/pharmacy #[id number], Partial fill upon patient request [...] Confirmed Active Bilateral tennis elbow Confirmed Active Encounter for general health examination Confirmed Active Hypothyroidism, postsurgical Confirmed Active Severe obesity Confirmed Active Vital Signs Most recent to oldest [Reference Range]: 1 2 Height 154.9 cm (06/26/22 11:28 AM) 154.9 cm (06/26/22 10:27 AM) Weight 97.4 kg (06/26/22 11:28 AM) Body Mass Index [18.5-24.99 kg/m2] 40.59 kg/m2 *>HHI* (06/26/22 11:28 AM) Social History Social History Type Response Smoking Status Never (less than 100 in lifetime) entered on: 08/27/21 Sex Patient Care team information Personnel Name: Sebastien HUYNH, Lashae Lozano Address: Address: [address] [place] [address]
--- OUTSIDE RECORDS SUMMARY | 2024-01-28 06:10 | XMS_ITS | Continuity of Care Document ---
Author Organization [facility] Address [address] [place] [address]- Care Team Providers Care Chief Credit Officer Name Role Phone Lashae Crowe MD, V Primary Care Physician [phone] Encounter [facility] [place] Date(s): 11/14/22 - 12/14/22 [facility] [address] [place], [place] [address] Allergies, Adverse Reactions, Alerts Substance [...] Kaleb rded influenza virus vaccine, inactivated 07/28/16 Akleb rded influenza virus vaccine, inactivated 07/30/15 Kaleb [...] each, 0 Refills, Maintenance, 10/17/22 11:33:00 EST, [facility]/pharmacy #[id number], Partial fill upon patient request if the prescription is for a schedule II opioid drug., Please dispense 2... Start Date: 10/17/22 Status: Ordered Combivent Respimat 20 mcg-100 mcg/inh inhalation aerosol 1 puffs, Inhalation, 4 times a day, # 4 mL, 3 Refills, Maintenance, 09/15/22 8:02:00 EST, [facility] [id number], 30, TAKE 1 PUFF BY MOUTH 4 [...] 37.5 mg, By Mouth, Daily in AM, at least one hour after meals, # 30 capsule, 1 Refills,Maintenance, 11/18/22 12:22:00 EDT, [facility], [id number], Partial fill upon patient request if the prescription is for a schedule II opioid drug... Start Date: 11/18/22 Status: Ordered Plus Low Iron oral tablet 1 tablet, By Mouth, Daily, # 90 tablet, 1 Refills, Maintenance, 10/07/22 7:38:00 EST, [id number], 90, TAKE 1 TABLET BY MOUTH EVERY DAY, 154.9, cm, 09/30/22 16:07:00 EST, Height, 96, kg, 04/17/2214:30:00 EDT, Dry Weight Start Date: 10/07/22 Status: Ordered Problem List Condition Confirmation Course [...] Care team information Care Team Personnel Name: Sebastien HUYNH, Lashae Lozano Position: [facility] Primary Care Physician Member Role: PCP Address: Address: [address] [place] [address]- Care Team Related Persons Name: JUSTIN PEPPER Address: [address] [address] Name: KAIN BROOKS Address: [id number] Address: home [address] [address] Name: TARSHA DANGELO Address: home [address] [address]
--- OUTSIDE RECORDS SUMMARY | 2024-01-28 06:10 | XMS_ITS | Continuity of Care Document ---
Author Organization [facility] Address [address] [place] [address]- Care Team Providers Care Cream Beater Name Role Phone Sebastien HUYNH, Lashae Lozano Primary Care Physician Encounter [facility] Date(s): 06/30/22 - 07/30/22 [facility] [address] [place], [place] [address] Allergies, Adverse Reactions, Alerts Substance Reaction [...] 3 Refills, Maintenance, 05/15/22 9:21:00 EDT, Aerosol, [facility]/pharmacy #[id number], Partial fill upon patient request if the prescription is for a schedule II opioid drug., 1 puffs Inhalation 4 times a day, 61, cm, 0... Start Date: 05/15/22 Status: Ordered diclofenac 1% topical gel 1 application, Topically, 4 times a day, PRN Pain , Moderate, # 100 Gm, 1 Refills, Maintenance, 06/03/22 11:10:00 EDT, Gel, [facility]/pharmacy #[id number], Partial fill upon patient request if the prescription is for a schedule II opioid drug., 61, cm, 05/30/22 1... Start Date: 06/03/22 Status: Ordered ibuprofen 600 mg oral tablet 600 mg, 1, tablet, By Mouth, Every 6 hours, PRN, # 40 tablet, Refills 0, Tot. Refills 0, Maintenance, Pain , Mild, 07/18/22 14:31:00 EST, Route to Pharmacy Electronically, [facility]/pharmacy #[id number], Partialfill upon patient request if the [...] 0 Refills, Maintenance, 07/01/22 9:17:00 EDT, Solution, [facility]/pharmacy #[id number], Partial fill upon patient request if [...] Personnel Name: Lashae Crowe MD, V Position: [facility] Primary Care Physician Member Role: PCP Address: Address: [address] [place] [address]- Care Team Related Persons Name: JUSTIN PEPPER Address: home [address] [address] Name: KAIN BROOKS Address: [address] Address: home [address] [address] Name: TARSHA DANGELO Address: home [address] [address]
--- OUTSIDE RECORDS SUMMARY | 2024-01-28 06:10 | XMS_ITS | Continuity of Care Document ---
Author Organization [facility] [employer] Address [address] [place] [address], [address] [place] [address]- Care Team Providers Care Preschool Assistant Director Name Role Phone Name [place] HUYNH Primary Care Physician [phone] Encounter [facility] [place] Date(s): 01/02/22 - 01/09/22 [facility] [address] [facility] [place], 4[address] [place], [place] [address] Attending Physician: Diego Pope MD Allergies, Adverse [...] 9:42:00 EST, Route to Pharmacy Electronically, [facility]/pharmacy #[id number], Partial fill upon patient request if the [...] opioid drug. Start Date: 10/23/20 Status: Ordered nitrofurantoin macrocrystals-monohydrate 100 mg oral capsule 1 capsule = 100 mg, By Mouth, 2 times a day, for 7 days, # 14 capsule, 0 Refills, Acute 01/15/22 16:48:00 EDT, 01/08/22 16:48:00 EDT, [facility]ule, [id number], Partial fill upon patient request ifthe prescription is for a schedule II opioid drug.,... Start Date: 01/08/22 Stop Date: 01/15/22 Status: Ordered PNV Plus oral tablet 1 [...] oldest [Reference Range]: 1 Height 155 cm (01/02/22 10:06 AM) Weight 105 kg (01/02/22 10:06 AM) Body Mass Index [18.5-24.99] 43.7 *>HHI* (01/02/22 10:06 AM) Blood Pressure [90-138/55-84 mm Hg] 110/ 62mm Hg (01/02/22 10:06 AM) Blood pressure sites Arm, right (01/02/22 10:06 AM) Weight Obtained Via Standing scale (01/02/22 10:06 AM) Social History Social History Type Response Smoking Status Never (less than 100 in lifetime) entered on: 08/27/21 Sex
--- OUTSIDE RECORDS SUMMARY | 2024-01-28 06:10 | XMS_ITS | Continuity of Care Document ---
Author Organization [facility] Address [address] [facility], [address] [place] [address]- Care Team Providers Care Tow Feeder Name Role Phone Name [place] HUYNH Primary Care Physician [phone] [place] [facility] [place](s): 04/24/20 - 05/24/20 [facility] [address] [facility], [address] [place] [address] Attending Physician: Whitney Cheng Admitting Physician: AdmtrWhitney Referring Physician: Admtr, Ar8 Allergies, Adverse Reactions, Alerts Substance Reaction Severity Status naproxen swollen eyes Moderate Active Adhesive Bandage Active Medications Adipex-P 37.5 mg oral capsule 1 capsule = 37.5 mg, By Mouth, Daily, 0 Refills, Maintenance, Capsule Start Date: 06/16/13 Status: Ordered Colace sodium 100 mg oral capsule 1 capsule = 100 mg, By Mouth, 2 times a day, PRN for constipation, # 28 capsule, 0 Refills, Maintenance, Capsule Start Date: 06/30/13 Stop Date: 07/14/13 Status: Ordered Combivent 103 mcg-18 mcg/inh inhalation aerosol with adapter 2 puffs, Inhalation, 4 times a day, PRN Wheezing/Shortness of Breath, 0 Refills, Maintenance Start Date: 06/16/13 Status: Ordered levothyroxine levothyroxine, Refills 0, Maintenance, 11/27/17 8:04:59, Compound Start Date: 11/27/17 Status: Ordered Multivitamin Daily, 0 Refills, Maintenance, 11/27/17 8:05:19 Start Date: 11/27/17 Status: Ordered
--- OUTSIDE RECORDS SUMMARY | 2024-01-28 06:10 | XMS_ITS | Continuity of Care Document ---
Author Organization [facility] [employer] Address [address] [facility], [address] [place] [address]- Care Team Providers Care Lead Business Analyst Name Role Phone Name [place] HUYNH Primary Care Physician [phone] Encounter [facility] Date(s): 10/08/21 - 11/07/21 [facility] [address] [facility], [address] [place], [place] [address] Allergies, Adverse Reactions, Alerts Substance Reaction [...] 08/29/21 9:42:00 EST, Route to Pharmacy Electronically, [facility]/pharmacy #[id number], Partial fill upon patient request if [...] tablet, 1 Refills, Maintenance, 11/06/20 16:46:00 EST, [facility]/pharmacy #[id number], Partial fill upon patient request if the prescription is for a schedule II opioid drug., 155, cm, 10/23/20 10:00:00 EST, Height Start Date: 11/06/20 Stop Date: 01/05/21 Status: Ordered Freestyle Lite [...] Replace Required Details, Route to Pharmacy Electronically, [facility]/pharmacy #[id number], Partial fill upo... Start Date: 11/22/20 Status: [...] A DAY, # 120 capsule, 1 Refills, [facility], 155, cm, 01/02/21 9:19:00 EDT, Height Start Date: 08/13/21 Status: Ordered Provera 10 mg oral tablet 10 mg, 1, tablet, By Mouth, Daily, start tomorrow if test is negative, # 10 tablet, Refills 0, Tot. Refills 0, Maintenance, 12/13/20 13:05:00 EDT, Route to Pharmacy Electronically, [facility]/pharmacy #[id number], Partial fill upon patient request if [...] Refills, Maintenance, 11/01/21 8:47:00 EST, [facility], [id number], Partial fill upon patient request if the [...]
--- OUTSIDE RECORDS SUMMARY | 2024-01-28 06:10 | XMS_ITS | Continuity of Care Document ---
Author Organization [facility] Address [address] [facility], [place] [address]- Care Team Providers Care Weather Strip Mechanic Name Role Phone Lashae Crowe MD, V Primary Care Physician Encounter [facility] [place] ACCT R [id number] Date(s): 11/06/23 - 12/06/23 [facility] [address] [facility], [address] [place], [place] [address] Attending Physician: Admtr, Sanchez8 Admitting Physician: Admtr, Ar8 Referring Physician: Admtr, [...] 3 Refills, Maintenance, 09/15/22 8:02:00 EST, [facility] [id number], 30, TAKE 1 PUFF BY MOUTH 4 TIMES A DAY, 154.9, cm, 08/21/22 10:34:00 EST, Height, 96, kg, 04/17/22 14:30:00 EDT, Dry Weight Start Date: 09/15/22 Status: Ordered diclofenac 1% topical gel 1 application, Topically, 4 times a day, PRN Pain , Moderate, # 100 Gm, 3 Refills, Maintenance, 05/18/23 11:18:00 EDT, Gel, [facility]/pharmacy #[id number], Partial fill upon patient request if the prescription is for a schedule II opioid drug., 154, cm, 12/19/22... Start Date: 05/18/23 Status: Ordered ibuprofen 600 mg oral tablet 600 mg, 1, tablet, By Mouth, Every 6 hours, PRN, # 40 tablet, Refills 0, Tot. Refills 0, Maintenance, Pain , Mild, 07/18/22 14:31:00 EST, Route to Pharmacy Electronically, [facility]/pharmacy #[id number], Partialfill upon patient request if [...] capsule, 3 Refills, Maintenance, 05/05/23 12:09:00EDT, Capsule, [facility]/pharmacy #[id number], Partial fill upon patient request if the prescription is for a schedule II opioid drug., 154, cm, 12/19/22 13:01:00 E... Start Date: 05/05/23 Status: Ordered Plus Low Iron oral tablet 1 tablet, By Mouth, Daily, # 90 tablet, 1 Refills, Maintenance, 10/07/22 7:38:00 EST, [facility], 90, TAKE 1 TABLET BY MOUTH EVERY DAY, 154.9, cm, 09/30/22 16:07:00 EST, Height, 96, kg, 04/17/2214:30:00 EDT, Dry Weight Start Date: 10/07/22 Status: Ordered sertraline 25 mg oral tablet 1 tablet, By Mouth, Daily in AM, # 90 tablet, 1 Refills, Maintenance, 04/27/23 9:08:00 EDT, [facility], 154, cm, 12/19/22 13:01:00 EDT, Height, 108, [...] 100 in lifetime) entered on: 07/31/20 Sex Laboratory * Event Display: DELIVERY AND INSTALLATION SUBCONTRACTOR Pap Test, Non- Authored Date: Patient Care team information Care Team Personnel Name: Lashae Crowe MD, V Position: [facility] Physician - Primary Care Member Role: PCP Address: Address: [address] [place] [address]- Name: Dee Dee Roberts Position: [facility] Outreach Member Role: Lifetime Consulting Physician Care Team Related Persons Name: JUSTIN PEPPER Address: home [address] [address] Name: KAIN BROOKS Address: [address] Address: home [address] [address] [place] Name: TARSHA DANGELO Address: home [address] [address]
--- OUTSIDE RECORDS SUMMARY | 2024-01-28 06:10 | XMS_ITS | Continuity of Care Document ---
Author Organization [facility] Address [address] [place] [address]- Care Team Providers Care Network Field Engineer Name Role Phone Name [place] HUYNH Primary Care Physician Encounter [facility] Date(s): 03/24/22 - 04/23/[address] [address]- Allergies, Adverse Reactions, Alerts Substance Reaction Severity [...] 0 Refills, Maintenance, 03/15/22 5:23:00 EDT, Capsule, [facility]/pharmacy #[id number], Partial fill upon patient [...] Dry Weight Start Date: 02/18/22 Status: Ordered FREESTYLE LITE TEST STRIP FREESTYLE LITE TEST STRIP, See Instructions, # 100 Unknown, 1 Refills, CHECK BLOOD SUGARS 4 TIMES ADAY. FASTING, AFTER BREAKFAST, AFTER LUNCH, AFTER DINNER, 61, cm, 04/17/22 14:30:00 EDT, Height, 96, kg, 04/17/22 14:30:00 EDT, Dry Weight Start Date: 04/18/22 Status: Ordered ibuprofen 800 mg oral tablet [...] 03/15/22 5:23:00 EDT, Route to Pharmacy Electronically, [facility]/pharmacy #[id number], Partial fill upon patient request if the prescription... Start Date: 03/15/22 Status: Ordered PNV Plus oral tablet 1 tablet, By Mouth, Daily, # 90 tablet, 1 Refills, Maintenance, 10/07/21 16:30:00 EST, [facility]/pharmacy#[id number], Partial fill upon patient request if the prescription is for a schedule II opioid drug., 1 tablet By Mouth Daily, 155, cm, 09/25/21 10:47:00 EST... Start Date: 10/07/21 Status: Ordered Vitamin B-12 500 mcg oral tablet 1 tablet = 500 mcg, By Mouth, Daily, # 90 tablet, 3 Refills, Maintenance, 11/01/21 8:45:00 EST, Tablet, [facility]/pharmacy #[id number], Partial fill upon patient request if the prescription is for a schedule II opioid drug., 155, cm, 10/28/21 11:50:00 EST, Height... Start Date: 11/01/21 Status: Ordered Vitamin D2 2000 intl units oral capsule 1 capsule = 50 mcg, By Mouth, Daily, with food, # 90 capsule, 3 Refills, Maintenance, 11/01/21 8:47:00 EST, Capsule, [facility]/pharmacy #[id number], Partial fill upon patient [...]
--- OUTSIDE RECORDS SUMMARY | 2024-01-28 06:10 | XMS_ITS | Continuity of Care Document ---
Author Organization [facility] ter Address [address] [place] [address]- Care Team Providers Care Engineering Clerk Name Role Phone Name [place] HUYNH Primary Care Physician Encounter [facility] [place] Date(s): 12/31/21 - 01/01/[address] [address] Discharge Disposition: A-D/C Home Attending Physician: Melissa De La Vega MD Admitting Physician: Melissa De La Vega MD Referring Physician: Melissa De La Vega MD Allergies, Adverse Reactions, Alerts Substance Reaction [...] 08/29/21 9:42:00 EST, Route to Pharmacy Electronically, [facility]/pharmacy #[id number], Partial fill upon patient request if the [...] Active Recurrent loss(Confirmed) Active Severe obesity(Confirmed) Active Results Orders for Microbiology Reports Name Date Urine Culture 12/31/21 Microbiology Reports TEST:Urine Culture STATUS:Auth (Verified) BODY SITE: SOURCE:URINE COLLECTED DATE/TIME:12/31/21 8:20 PM Urine Culture SPECIMEN DESCRIPTION : URINE CLEAN CATCH/MIDSTREAM SPECIAL REQUESTS : NONE CULTURE : NO GROWTH REPORT STATUS : FINAL 01/01/2022 Vital Signs Most recent to oldest [Reference Range]: 1 2 3 Weight 104.6 kg (12/31/21 8:08 PM) Oxygen Saturation [94-100 %] 100 % (12/31/21 11:40 PM) 99 % (12/31/21 10:40 PM) 99 % (12/31/21 9:40 PM) Blood Pressure [90-138/55-84 mm Hg] 111/74mm Hg (12/31/21 8:21 PM) Respiratory Rate [16-30 br/min] 20 br/min (12/31/21 8:21 PM) Temperature [96.8-100.4 DegF] 98.6 DegF (12/31/21 8:08 PM) Mode of Delivery (Oxygen) Room air (12/31/21 8:21 PM) Blood pressure sites Arm, left (12/31/21 8:21 PM) Temperature Route Oral (12/31/21 8:08 PM) Dry Weight 104.6 kg (12/31/21 8:08 PM) Weight Obtained Via Standing scale (12/31/21 8:08 PM) Dry Weight Obtained Via Standing scale (12/31/21 8:08 PM) Social History Social History Type Response Smoking Status Never (less than 100 in lifetime) entered on: 08/27/21 Sex
--- OUTSIDE RECORDS SUMMARY | 2024-01-28 06:10 | XMS_ITS | Continuity of Care Document ---
Author Organization [facility] [employer] Address [address] [facility], [address] [place] [address]- Care Team Providers Care Splunk Dashboard Developer Name Role Phone Sebastien HUYNH, Lashae Lozano Primary Care Physician Encounter [facility] [place] Date(s): 01/31/22 - 05/31/22 [facility] [address] [facility], [address] [place] [address]- Attending Physician: Niko HUYNH, Diego Donnelly Referring Physician: Jose HUYNH [OB], Dariana Pena [...] Refills, Maintenance, 05/15/22 9:21:00 EDT, [id number], Partial fill upon patient request if the [...] thyroiditis(Confirmed) Active Hx of bariatric surgery(Confirmed) Active Bilateral tennis elbow(Confirmed) Active Encounter for general health examination(Confirmed) Active Hypothyroidism, postsurgical(Confirmed) Active Severe obesity(Confirmed) Active Social History Social History Type Response Smoking Status Never (less than 100 in lifetime) entered on: 08/27/21 Sex Care Team Personnel Name: Lashae Crowe MD, V Address: [address] [place] [address]
--- OUTSIDE RECORDS SUMMARY | 2024-01-28 06:10 | XMS_ITS | Continuity of Care Document ---
Author Organization [facility] Address [address] [place] [address]- Care Team Providers Care Risk Mgr Name Role Phone Lashae Crowe MD, V Primary Care Physician [phone] Encounter [facility] [place] [facility] Date(s): 05/15/22 - 05/22/22 [facility] [address] [place], [place] [address] Encounter Diagnosis Hypothyroidism, postsurgical(Discharge Diagnosis) - 05/15/22 Attending Physician: Lashae Crowe MD, V Allergies, [...] Refills, Maintenance, 05/15/22 9:21:00 EDT, [facility], [id number], Partial fill upon patient request if the [...] Active Hypothyroidism, postsurgical(Confirmed) Active Severe obesity(Confirmed) Active Diagnosis Diagnosis Type Effective Dates Health Status Clinical Service Informant Hypothyroidism, postsurgical Discharge Diagnosis 05/15/22 Social History Social History Type Response Smoking Status Never (less than 100 in lifetime) entered on: 08/27/21 Sex Care Team Personnel Name: Lashae Crowe MD, V Address: [address] [place] [address]
--- OUTSIDE RECORDS SUMMARY | 2024-01-28 06:10 | XMS_ITS | Continuity of Care Document ---
Author Organization [facility] [email or web address] Address [address] [place] [address], [address] [place] [address]- Care Team Providers Care Instructional Facilitator Name Role Phone Name [place] HUYNH Primary Care Physician [phone] Encounter [facility] ACCT R [id number] Date(s): 12/03/21 - 12/10/21 [facility] [employer] [facility] [address] [facility], [address] [place] [address]- Attending Physician: Cara Noe MD Referring Physician: Jose HUYNH [OB], Dariana [...] 08/29/21 9:42:00 EST, Route to Pharmacy Electronically, [facility]/pharmacy #[id number], Partial fill upon patient request if the [...] Dry Weight Start Date: 11/20/21 Status: Ordered estradiol 2 mg oral tablet 1 tablet = 2 mg, By Mouth, 2 times a day, # 60 tablet, 1 Refills, Maintenance, 11/06/20 16:46:00 EST, [facility]/pharmacy #8601, Partial fill upon patient request if the [...] Replace Required Details, Route to Pharmacy Electronically, [facility]/pharmacy #[id number], Partial fill upo... Start Date: 11/22/20 [...] tablet, 1 Refills, Maintenance, 10/07/21 16:30:00 EST, [facility]/pharmacy#[id number], Partial fill upon patient request if the [...] A DAY, # 120 capsule, 1 Refills, [facility] ST[facility] 54096, 155, cm, 01/02/21 9:19:00 EDT, Height Start Date: 08/13/21 Status: Ordered Provera 10 mg oral tablet 10 mg, 1, tablet, By Mouth, Daily, start tomorrow if test is negative, # 10 tablet, Refills 0, Tot. Refills 0, Maintenance, 12/13/20 13:05:00 EDT, Route to Pharmacy Electronically, [facility]/pharmacy #[id number], Partial fill upon patient request if [...]
--- OUTSIDE RECORDS SUMMARY | 2024-01-28 06:10 | XMS_ITS | Continuity of Care Document ---
Author Organization [facility] ry Address [address] [place] [address]- Care Team Providers Care Maxillofacial Pathology Name Role Phone Lashae Crowe MD, V Primary Care Physician [phone] Encounter [facility] Date(s): 07/16/23 - 08/15/23 [facility] [address] [place] [address]- Allergies, Adverse Reactions, Alerts Substance Reaction Severity [...] mL, 3 Refills, Maintenance, 09/15/22 8:02:00 EST, [facility] [id number], 30, TAKE 1 PUFF BY MOUTH 4 TIMES A DAY, 154.9, cm, 08/21/22 10:34:00 EST, Height, 96, kg, 04/17/22 14:30:00 EDT, Dry Weight Start Date: 09/15/22 Status: Ordered diclofenac 1% topical gel 1 application, Topically, 4 times a day, PRN Pain , Moderate, # 100 Gm, 3 Refills, Maintenance, 05/18/23 11:18:00 EDT, Gel, [facility]/pharmacy #[id number], Partial fill upon patient request if the prescription is for a schedule II opioid drug., 154, cm, 12/19/22... Start Date: 05/18/23 Status: Ordered ibuprofen 600 mg oral tablet 600 mg, 1, tablet, By Mouth, Every 6 hours, PRN, # 40 tablet, Refills 0, Tot. Refills 0, Maintenance, Pain , Mild, 07/18/22 14:31:00 EST, Route to Pharmacy Electronically, [facility]/pharmacy #[id number], Partialfill upon patient request if [...] capsule, 3 Refills, Maintenance, 05/05/23 12:09:00EDT, Capsule, [facility]/pharmacy #[id number], Partial fill upon patient request if the prescription is for a schedule II opioid drug., 154, cm, 12/19/22 13:01:00 E... Start Date: 05/05/23 Status: Ordered Plus Low Iron oral tablet 1 tablet, By Mouth, Daily, # 90 tablet, 1 Refills, Maintenance, 10/07/22 7:38:00 EST, [facility], 90, TAKE 1 TABLET BY MOUTH EVERY DAY, 154.9, cm, 09/30/22 16:07:00 EST, Height, 96, kg, 04/17/2214:30:00 EDT, Dry Weight Start Date: 10/07/22 Status: Ordered sertraline 25 mg oral tablet 1 tablet, By Mouth, Daily in AM, # 90 tablet, 1 Refills, Maintenance, 04/27/23 9:08:00 EDT, [facility], 154, cm, 12/19/22 13:01:00 EDT, Height, 108, [...] Personnel Name: Lashae Crowe MD, V Position: [facility] Physician - Primary Care Member Role: PCP Address: Address: [address] [place] [address]- Name: Dee Dee Roberts Position: [facility] Outreach Member Role: Lifetime Consulting Physician Care Team Related Persons Name: JUSTIN PEPPER Address: [address] [address] Name: KAIN BROOKS Address: [id number] Address: [address] [address] [place] Name: TARSHA DANGELO Address: home [address] [address]
--- OUTSIDE RECORDS SUMMARY | 2024-01-28 06:10 | XMS_ITS | Continuity of Care Document ---
Author Organization [facility] Address [address] [place] [address]- Care Team Providers Care Laboratory Cureman Name Role Phone Lashae Crowe MD, V Primary Care Physician [place] [facility] [place] - 11/01/22 [facility] [address] [place] [address]- [place] Allergies, Adverse Reactions, Alerts Substance Reaction Severity [...] each, 0 Refills, Maintenance, 10/17/22 11:33:00 EST, [facility]/pharmacy #[id number], Partial fill upon patient request if the prescription is for a schedule II opioid drug., Please dispense 2... Start Date: 10/17/22 Status: Ordered Combivent Respimat 20 mcg-100 mcg/inh inhalation aerosol 1 puffs, Inhalation, 4 times a day, # 4 mL, 3 Refills, Maintenance, 09/15/22 8:02:00 EST, [facility] [id number], 30, TAKE 1 PUFF BY MOUTH 4 TIMES A DAY, 154.9, cm, 08/21/22 10:34:00 EST, Height, 96, kg, 04/17/22 14:30:00 EDT, Dry Weight Start Date: 09/15/22 Status: Ordered diclofenac 1% topical gel 1 application, Topically, 4 times a day, PRN Pain , Moderate, # 100 Gm, 1 Refills, Maintenance, 06/03/22 11:10:00 EDT, Gel, [facility]/pharmacy #[id number], Partial fill upon patient request if the prescription is for a schedule II opioid drug., 61, cm, 05/30/22 1... Start Date: 06/03/22 Status: Ordered ibuprofen 600 mg oral tablet 600 mg, 1, tablet, By Mouth, Every 6 hours, PRN, # 40 tablet, Refills 0, Tot. Refills 0, Maintenance, Pain , Mild, 07/18/22 14:31:00 EST, Route to Pharmacy Electronically, [facility]/pharmacy #[id number], Partialfill upon patient request if [...] 0 Refills, Maintenance, 07/01/22 9:17:00 EDT, Solution, [facility]/pharmacy #[id number], Partial fill upon patient request if the prescription is for a schedule IIopioid drug., 154.9, cm, 06/26/22 11:28:00 EDT, Hei... Start Date: 07/01/22 Stop Date: 07/08/22 Status: Ordered Plus Low Iron oral tablet 1 tablet, By Mouth, Daily, # 90 tablet, 1 Refills, Maintenance, 10/07/22 7:38:00 EST, [id number], 90, TAKE 1 TABLET BY MOUTH EVERY [...] Personnel Name: Lashae Crowe MD, V Position: [facility] Primary Care Physician Member Role: PCP Address: Address: [address] [place] [address]- Care Team Related Persons Name: JUSTIN PEPPER Address: home [address] Name: KAIN BROOKS Address: [address] Address: home [address] Name: TARSHA DANGELO Address: home [address]
--- OUTSIDE RECORDS SUMMARY | 2024-01-28 06:10 | XMS_ITS | Continuity of Care Document ---
Author Organization [facility] e Medicine Address [address] [facility], 4t [address] [place] [address]- Care Team Providers Care Equalizing Saw Operator Name Role Phone Name [place] HUYNH Primary Care Physician Encounter [facility] [place] ACCT R [id number] Date(s): 01/02/21 - 02/01/21 [facility]ductive [facility] [address] [place] [address], 4th [address] [place] [address]- Attending Physician: Admtr, Ar8 Admitting Physician: Admtr, Ar8 Referring Physician: Admtr, Ar8 Allergies, Adverse Reactions, Alerts Substance Reaction Severity Status naproxen swollen eyes Moderate Active Bactrim Active Vannesa Active Adhesive Bandage Active Medications Combivent 103 mcg-18 mcg/inh inhalation aerosol with adapter 2 puffs, Inhalation, 4 times a day, PRN Wheezing/Shortness of Breath, 0 Refills, Maintenance Start Date: 06/16/13 Status: Ordered estradiol 2 mg oral tablet 1 tablet = 2 mg, By Mouth, 2 times a day, # 60 tablet, 1 Refills, Maintenance, 11/06/20 16:46:00 EST, [facility]/pharmacy #[id number], Partial fill upon patient request [...] 12/13/20 13:05:00 EDT, Route to Pharmacy Electronically, [facility]/pharmacy #[id number], Partial fill upon patient request if the... 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
--- OUTSIDE RECORDS SUMMARY | 2024-01-28 06:10 | XMS_ITS | Continuity of Care Document ---
Author Organization [facility] Address [address] [facility], 4t [address] [place] [address]- Care Team Providers Care Microbiology Lab Manager Name Role Phone Name [place] HUYNH Primary Care Physician En[place] [facility] [place] ACCT R [id number] Date(s): 12/13/20 - 01/12/21 [facility] Reproductive Medicine [address] [facility], 4th [address] [place] [address]- Attending Physician: Admtr, Ar8 Admitting Physician: Admtr, [...] tablet, 1 Refills, Maintenance, 11/06/20 16:46:00 EST, [facility]/pharmacy #[id number], Partial fill upon [...] 12/13/20 13:05:00 EDT, Route to Pharmacy Electronically, [facility]/pharmacy #[id number], Partial fill upon patient request if the... 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
--- OUTSIDE RECORDS SUMMARY | 2024-01-28 06:10 | XMS_ITS | Continuity of Care Document ---
Author Organization [facility] Address [address] [place] [address]- Care Team Providers Care Meatman Name Role Phone Lashae Crowe MD, V Primary Care Physician [phone] [place] [facility] [place] - 12/14/22 [facility] [address] [place], [place] [address] Allergies, Adverse Reactions, Alerts Substance Reaction Severity [...] each, 0 Refills, Maintenance, 10/17/22 11:33:00 EST, [facility]/pharmacy #[id number], Partial fill upon patient request if the prescription is for a schedule II opioid drug., Please dispense 2... Start Date: 10/17/22 Status: Ordered Combivent Respimat 20 mcg-100 mcg/inh inhalation aerosol 1 puffs, Inhalation, 4 times a day, # 4 mL, 3 Refills, Maintenance, 09/15/22 8:02:00 EST, [facility] [id number], 30, TAKE 1 PUFF BY MOUTH 4 TIMES A DAY, 154.9, cm, 08/21/22 10:34:00 EST, Height, 96, kg, 04/17/22 14:30:00 EDT, Dry Weight Start Date: 09/15/22 Status: Ordered diclofenac 1% topical gel 1 application, Topically, 4 times a day, PRN Pain , Moderate, # 100 Gm, 1 Refills, Maintenance, 06/03/22 11:10:00 EDT, Gel, [facility]/pharmacy #[id number], Partial fill upon patient request if the prescription is for a schedule II opioid drug., 61, cm, 05/30/22 1... Start Date: 06/03/22 Status: Ordered ibuprofen 600 mg oral tablet 600 mg, 1, tablet, By Mouth, Every 6 hours, PRN, # 40 tablet, Refills 0, Tot. Refills 0, Maintenance, Pain , Mild, 07/18/22 14:31:00 EST, Route to Pharmacy Electronically, [facility]/pharmacy #[id number], Partialfill upon patient request [...] 1 Refills,Maintenance, 11/18/22 12:22:00 EDT, [facility], [id number], Partial fill upon patient request if the prescription is for a schedule II opioid drug... Start Date: 11/18/22 Status: Ordered Plus Low Iron oral tablet 1 tablet, By Mouth, Daily, # 90 tablet, 1 Refills, Maintenance, 10/07/22 7:38:00 EST, [id number], 90, TAKE 1 TABLET BY MOUTH EVERY [...] Personnel Name: Sebastien HUYNH, Lashae Lozano Position: [facility] Primary Care Physician Member Role: PCP Address: Address: [address] [place] [address]- Care Team Related Persons Name: JUSTIN PEPPER Address: [address] [address] Name: KAIN BROOKS Address: [address] Address: [address] [address] Name: TARSHA DANGELO Address: [address] [address]
--- OUTSIDE RECORDS SUMMARY | 2024-01-28 06:10 | XMS_ITS | Continuity of Care Document ---
Author Organization [facility] Medicine Address [address] [facility], 4t [address] [place] [address]- Care Team Providers Care Brain Picker Name Role Phone Name [place] HUYNH Primary Care Physician [place] [facility] [place] 09/11/20 - 10/11/20 [facility] Reproductive Medicine [address] [place] [address], 4th [address] [place], [place] [address] Allergies, Adverse Reactions, Alerts Substance Reaction Severity Status naproxen swollen eyes Moderate Active Bactrim Active Adhesive Bandage Active Medications Adipex-P 37.5 [...] 11/27/17 8:05:19 Start Date: 11/27/17 Status: Ordered Synthroid 0.2 mg oral tablet 1 tablet = 200 mcg, By Mouth, Daily, # 30 tablet, 0 Refills, Maintenance, 07/31/20 17:41:00 EST, Tablet, Partial fill upon patient request Start Date: 07/31/20 Status: Ordered Problem List Condition Effective Dates Status Health Status Inform ant History of recurrent miscarriages(Confirmed) Active Hypothyroidism, postsurgical(Confirmed) Active Social History Social History Type Response Smoking Status Never (less than 100 in lifetime) entered on: 07/31/20 Sex
--- OUTSIDE RECORDS SUMMARY | 2024-01-28 06:10 | XMS_ITS | Continuity of Care Document ---
Author Organization [facility] [employer] [employer] Address [address] [facility], 4t [place] [address]- Care Team Providers Care Ecommerce Marketing Specialist Name Role Phone Name [place] HUYNH Primary Care Physician [place] [facility] [place](s[place] 04/04/22 - 04/11/22 [facility] [address] [facility], 4th [place] [address]- Attending Physician: Leandra HUYNH, Hilary Donnelly Referring Physician: Karen HUYNH, Chato Luis Allergies, Adverse Reactions, Alerts Substance Reaction Severity [...] 0 Refills, Maintenance, 03/15/22 5:23:00 EDT, Capsule, [facility]/pharmacy #[id number], Partial fill upon [...] 03/15/22 5:23:00 EDT, Route to Pharmacy Electronically, [facility]/pharmacy #[id number], Partial fill upon [...] recent to oldest [Reference Range]: 1 Height 61 cm (04/04/22 2:25 PM) Weight 96.81 kg (04/04/22 2:25 PM) Body Mass Index [18.5-24.99] 260.17 *>HHI* (04/04/22 2:25 PM) Blood Pressure [90-138/55-84 mm Hg] 130/ 82mm Hg (04/04/22 2:25 PM) Blood pressure sites Arm, left (04/04/22 2:25 PM) Weight Obtained Via Standing scale (04/04/22 2:25 PM) Social History Social History Type Response Smoking Status Never (less than 100 in lifetime) entered on: 08/27/21 Sex
--- OUTSIDE RECORDS SUMMARY | 2024-01-28 06:10 | XMS_ITS | Continuity of Care Document ---
Author Organization [facility] Martina [employer] [employer] [facility] Address [address] [place] [address], [address] [place] [address]- Care Team Providers Care Team Driver Name Role Phone Name [place] HUYNH Primary Care Physician [phone] [place] [facility] [place]21 - 12/01/21 [facility] [employer] [facility] [address] [facility], 4th [place] [address]- Allergies, Adverse Reactions, Alerts Substance Reaction Severity [...] 08/29/21 9:42:00 EST, Route to Pharmacy Electronically, [facility]/pharmacy #[id number], Partial fill upon patient request if the [...] tablet, 1 Refills, Maintenance, 11/06/20 16:46:00 EST, [facility]/pharmacy #[id number], Partial fill upon patient request if [...] Replace Required Details, Route to Pharmacy Electronically, [facility]/pharmacy #[id number], Partial fill upo... Start Date: 11/22/20 [...] tablet, 1 Refills, Maintenance, 10/07/21 16:30:00 EST, [facility]/pharmacy#[id number], Partial fill upon patient request if the [...] A DAY, # 120 capsule, 1 Refills, [id number], 155, cm, 01/02/21 9:19:00 EDT, Height Start Date: 08/13/21 Status: Ordered Provera 10 mg oral tablet 10 mg, 1, tablet, By Mouth, Daily, start tomorrow if test is negative, # 10 tablet, Refills 0, Tot. Refills 0, Maintenance, 12/13/20 13:05:00 EDT, Route to Pharmacy Electronically, [facility]/pharmacy #[id number], Partial fill upon patient request if [...] 3 Refills, Maintenance, 11/01/21 8:47:00 EST, Capsule, [facility]/pharmacy #[id number], Partial fill upon patient request if [...]
--- OUTSIDE RECORDS SUMMARY | 2024-01-28 06:10 | XMS_ITS | Continuity of Care Document ---
Author Organization [facility] Atilio umesh Address [address] [place] [address] [address] [place] [address]- Care Team Providers Care Editing Computer Publisher Name Role Phone Name [place] HUYNH Primary Care Physician [phone] En[place] [facility] [place] Date(s): 11/28/21 - 12/05/21 [facility] [address] [place], [place] [address] Attending Physician: Lisa Urena MD Referring Physician: Jose HUYNH [OB], Dariana [...] 08/29/21 9:42:00 EST, Route to Pharmacy Electronically, [facility]/pharmacy #[id number], Partial fill upon patient request if the [...] tablet, 1 Refills, Maintenance, 11/06/20 16:46:00 EST, [facility]/pharmacy #[id number], Partial fill upon patient request if the [...] Replace Required Details, Route to Pharmacy Electronically, [facility]/pharmacy #[id number], Partial fill upo... Start Date: 11/22/20 [...] tablet, 1 Refills, Maintenance, 10/07/21 16:30:00 EST, [facility]/pharmacy#[id number], Partial fill upon patient request if the [...] A DAY, # 120 capsule, 1 Refills, [facility] 19908, 155, cm, 01/02/21 9:19:00 EDT, Height Start Date: 08/13/21 Status: Ordered Provera 10 mg oral tablet 10 mg, 1, tablet, By Mouth, Daily, start tomorrow if test is negative, # 10 tablet, Refills 0, Tot. Refills 0, Maintenance, 12/13/20 13:05:00 EDT, Route to Pharmacy Electronically, [facility]/pharmacy #[id number], Partial fill upon patient request if [...] oldest [Reference Range]: 1 Height 155 cm (11/28/21 1:00 PM) Weight 104 kg (11/28/21 1:00 PM) Body Mass Index [18.5-24.99] 43.29 *>HHI* (11/28/21 1:00 PM) Dry Weight 104 kg (11/28/21 1:00 PM) Social History Social History Type Response Smoking Status Never (less than 100 in lifetime) entered on: 08/27/21 Sex
--- OUTSIDE RECORDS SUMMARY | 2024-01-28 06:10 | XMS_ITS | Continuity of Care Document ---
Author Organization [facility] ry Address [address] [place] [address]- Care Team Providers Care Scrip Clerk Name Role Phone Sebastien HUYNH, Lashae Lozano Primary Care Physician [place] [facility] [place]23 [place] 12/16/23 [facility] [address] [place] [address]- Allergies, Adverse Reactions, Alerts Substance Reaction Severity [...] 3 Refills, Maintenance, 09/15/22 8:02:00 EST, [facility] [id number], 30, TAKE 1 PUFF BY MOUTH 4 TIMES A DAY, 154.9, cm, 08/21/22 10:34:00 EST, Height, 96, kg, 04/17/22 14:30:00 EDT, Dry Weight Start Date: 09/15/22 Status: Ordered diclofenac 1% topical gel 1 application, Topically, 4 times a day, PRN Pain , Moderate, # 100 Gm, 3 Refills, Maintenance, 05/18/23 11:18:00 EDT, Gel, [facility]/pharmacy #[id number], Partial fill upon patient request if the prescription is for a schedule II opioid drug., 154, cm, 12/19/22... Start Date: 05/18/23 Status: Ordered ibuprofen 600 mg oral tablet 600 mg, 1, tablet, By Mouth, Every 6 hours, PRN, # 40 tablet, Refills 0, Tot. Refills 0, Maintenance, Pain , Mild, 07/18/22 14:31:00 EST, Route to Pharmacy Electronically, [facility]/pharmacy #[id number], Partialfill upon patient request [...] 3 Refills, Maintenance, 05/05/23 12:09:00EDT, Capsule, [facility]/pharmacy #[id number], Partial fill upon patient request if the prescription is for a schedule II opioid drug., 154, cm, 12/19/22 13:01:00 E... Start Date: 05/05/23 Status: Ordered Plus Low Iron oral tablet 1 tablet, By Mouth, Daily, # 90 tablet, 1 Refills, Maintenance, 10/07/22 7:38:00 EST, [facility], 90, TAKE 1 TABLET BY MOUTH EVERY DAY, 154.9, cm, 09/30/22 16:07:00 EST, Height, 96, kg, 04/17/2214:30:00 EDT, Dry Weight Start Date: 10/07/22 Status: Ordered sertraline 25 mg oral tablet 1 tablet, By Mouth, Daily in AM, # 90 tablet, 1 Refills, Maintenance, 04/27/23 9:08:00 EDT, [id number], 154, cm, 12/19/22 13:01:00 EDT, Height, 108, [...] Personnel Name: Lashae Crowe MD, V Position: [facility] Physician - Primary Care Member Role: PCP Address: Address: [address] [place] [address] Name: Dee Dee Roberts Position: [facility] Outreach Member Role: Lifetime Consulting Physician Care Team Related Persons Name: SHANTELLE JUSTIN Address: [address] [address] Name: KAIN BROOKS Address: [address] Address: [address] [address] [place] Name: TARSHA DANGELO Address: [address] [address]
--- OUTSIDE RECORDS SUMMARY | 2024-01-28 06:10 | XMS_ITS | Continuity of Care Document ---
Author Organization [facility] Address [address] [place] [address]- Care Team Providers Care Neurosurgical Nurse Name Role Phone Sebastien HUYNH, Lashae Lozano Primary Care Physician Encounter [facility] Date(s): 07/18/22 - 07/25/22 [facility] [address] [place] [address]- Encounter Diagnosis Left knee pain(Discharge Diagnosis) - 07/18/22 Attending Physician: Chuck Olivares Referring Physician: Lashae Crowe MD, V Allergies, Adverse [...] 3 Refills, Maintenance, 05/15/22 9:21:00 EDT, Aerosol, [facility]/pharmacy #[id number], Partial fill upon patient request if the prescription is for a schedule II opioid drug., 1 puffs Inhalation 4 times a day, 61, cm, 0... Start Date: 05/15/22 Status: Ordered diclofenac 1% topical gel 1 application, Topically, 4 times a day, PRN Pain , Moderate, # 100 Gm, 1 Refills, Maintenance, 06/03/22 11:10:00 EDT, Gel, [facility]/pharmacy #[id number], Partial fill upon patient request if the prescription is for a schedule II opioid drug., 61, cm, 05/30/22 1... Start Date: 06/03/22 Status: Ordered ibuprofen 600 mg oral tablet 600 mg, 1, tablet, By Mouth, Every 6 hours, PRN, # 40 tablet, Refills 0, Tot. Refills 0, Maintenance, Pain , Mild, 07/18/22 14:31:00 EST, Route to Pharmacy Electronically, [facility]/pharmacy #[id number], Partialfill upon patient request [...] 0 Refills, Maintenance, 07/01/22 9:17:00 EDT, Solution, [facility]/pharmacy #[id number], Partial fill upon patient [...] postsurgical Confirmed Active Severe obesity Confirmed Active Diagnosis Diagnosis Type Effective Dates Health Status Cl inical Service Informant Left knee pain Discharge Diagnosis 07/18/22 Vital Signs Most recent to oldest [Reference Range]: 1 Height 154.9 cm (07/18/22 2:22 PM) Weight 102.7 kg (07/18/22 2:22 PM) Oxygen Saturation [94-100 %] 100 % (07/18/22 2:22 PM) Pulse Rate [55-90 bpm] 81 bpm (07/18/22 2:22 PM) Body Mass Index [18.5-24.99 kg/m2] 42.8 kg/m2 *>HHI* (07/18/22 2:22 PM) Blood Pressure [90-138/55-84 mm Hg] 122/ 85mm Hg (07/18/22 2:22 PM) Temperature [96.8-100.4 DegF] 97.1 DegF (07/18/22 2:22 PM) Mode of Delivery (Oxygen) Room air (07/18/22 2:22 PM) Blood pressure sites Arm, left (07/18/22 2:22 PM) Temperature Route Temporal (07/18/22 2:22 PM) Weight Obtained Via Standing scale (07/18/22 2:22 PM) Social History Social History Type Response Smoking Status Never (less than 100 in lifetime) entered on: 08/27/21 Sex Patient Care team information Care Team Personnel Name: Lashae Crowe MD, V Position: [facility] Primary Care Physician Member Role: PCP Address: Address: [address] [place] [address] [place] [address]- [place] Care Team Related Persons Name: JUSTIN PEPPER Address: [address] [address] Name: KAIN BROOKS Address: [address] Address: [address] [address] Name: TARSHA DANGELO Address: [place] [address] [address]
--- OUTSIDE RECORDS SUMMARY | 2024-01-28 06:10 | XMS_ITS | Continuity of Care Document ---
Author Organization [facility] Address [address] [place] [address]- Care Team Providers Care Dermatopathologist Name Role Phone Sebastien HUYNH, Lashae Lozano Primary Care Physician Encounter [facility] Date(s): 08/15/22 - 09/14/22 [facility] [address] [place], [place] [address] Allergies, Adverse Reactions, Alerts Substance Reaction Severity [...] rded tetanus-diphtheria toxoids (Td) 12/17/04 Recorded Medications albuterol-ipratropium 100 mcg-20 mcg/inh inhalation aerosol 1 puffs, Inhalation, 4 times a day, # 4 Gm, 3 Refills, Maintenance, 05/15/22 9:21:00 EDT, Aerosol, [facility]/pharmacy #[id number], Partial fill upon patient request if the prescription is for a schedule II opioid drug., 1 puffs Inhalation 4 times a day, 61, cm, 0... Start Date: 05/15/22 Status: Ordered diclofenac 1% topical gel 1 application, Topically, 4 times a day, PRN Pain , Moderate, # 100 Gm, 1 Refills, Maintenance, 06/03/22 11:10:00 EDT, Gel, [facility]/pharmacy #[id number], Partial fill upon patient request if the prescription is for a schedule II opioid drug., 61, cm, 05/30/22 1... Start Date: 06/03/22 Status: Ordered ibuprofen 600 mg oral tablet 600 mg, 1, tablet, By Mouth, Every 6 hours, PRN, # 40 tablet, Refills 0, Tot. Refills 0, Maintenance, Pain , Mild, 07/18/22 14:31:00 EST, Route to Pharmacy Electronically, [facility]/pharmacy #[id number], Partialfill upon patient request if the [...] 0 Refills, Maintenance, 07/01/22 9:17:00 EDT, Solution, [facility]/pharmacy #[id number], Partial fill upon patient request if [...] Personnel Name: Lashae Crowe MD, V Position: [facility] Primary Care Physician Member Role: PCP Address: Address: [address] [place] [address]- Care Team Related Persons Name: JUSTIN PEPPER Address: [address] [address] Name: KAIN BROOKS Address: [address] Address: home [address] [address] Name: TARSHA DANGELO Address: [address] [address]
--- OUTSIDE RECORDS SUMMARY | 2024-01-28 06:10 | XMS_ITS | Continuity of Care Document ---
Author Organization [facility] Medicine Address [address] [facility], 4t [address] [place] [address]- Care Team Providers Care Wig Comber Name Role Phone Name [place] HUYNH Primary Care Physician En[place] [facility] [place] Date(s): 09/19/20 - 09/26/20 [facility] Repro[facility] [address] [facility], 4th [address] [place] [address]- Attending Physician: Tressa Graves MD Allergies, Adverse Reactions, Alerts Substance Reaction [...]
--- OUTSIDE RECORDS SUMMARY | 2024-01-28 06:10 | XMS_ITS | Continuity of Care Document ---
Author Organization [facility] Address [address] [place] [address]- Care Team Providers Care Brick Picker Name Role Phone Sebastien HUYNH, Lashae Lozano Primary Care Physician [facility]counter [facility] Date(s): 07/09/22 - 08/08/22 [facility] [address] [place], [place] [address] Allergies, Adverse Reactions, Alerts [...] 3 Refills, Maintenance, 05/15/22 9:21:00 EDT, Aerosol, [facility]/pharmacy #[id number], Partial fill upon patient request if the prescription is for a schedule II opioid drug., 1 puffs Inhalation 4 times a day, 61, cm, 0... Start Date: 05/15/22 Status: Ordered diclofenac 1% topical gel 1 application, Topically, 4 times a day, PRN Pain , Moderate, # 100 Gm, 1 Refills, Maintenance, 06/03/22 11:10:00 EDT, Gel, [facility]/pharmacy #[id number], Partial fill upon patient request if the prescription is for a schedule II opioid drug., 61, cm, 05/30/22 1... Start Date: 06/03/22 Status: Ordered ibuprofen 600 mg oral tablet 600 mg, 1, tablet, By Mouth, Every 6 hours, PRN, # 40 tablet, Refills 0, Tot. Refills 0, Maintenance, Pain , Mild, 07/18/22 14:31:00 EST, Route to Pharmacy Electronically, [facility]/pharmacy #[id number], Partialfill upon patient request [...] 0 Refills, Maintenance, 07/01/22 9:17:00 EDT, Solution, [facility]/pharmacy #[id number], Partial fill upon patient [...] Personnel Name: Lashae Crowe MD, V Position: [facility] Primary Care Physician Member Role: PCP Address: Address: [address] [place] [address]- Care Team Related Persons Name: JUSTIN PEPPER Address: [address] [address] Name: KAIN BROOKS Address: [id number] Address: [address] [address] Name: TARSHA DANGELO Address: [address] [address]
--- OUTSIDE RECORDS SUMMARY | 2024-01-28 06:10 | XMS_ITS | Continuity of Care Document ---
Author Organization [facility] Address [address] [place] [address] [address] [place] [address]- Care Team Providers Care Fiberline Supervisor Name Role Phone Name [place] HUYNH Primary Care Physician Encounter [facility] Date(s): 12/19/21 - 01/18/22 [facility] [address] [place] [address]- Attending Physician: Admtr, Ar8 Admitting Physician: Admtr, [...] 08/29/21 9:42:00 EST, Route to Pharmacy Electronically, [facility]/pharmacy #[id number], Partial fill upon patient request if the [...]
--- OUTSIDE RECORDS SUMMARY | 2024-01-28 06:11 | XMS_ITS | Continuity of Care Document ---
Author Organization [facility] Address [address] [place] [address]- Care Team Providers Care Inspector Rough Castings Name Role Phone Lashae Crowe MD, V Primary Care Physician [phone] Encounter [facility] Date(s): 09/09/22 - 10/09/22 [facility] [address] [place], [place] [address] Allergies, Adverse Reactions, Alerts Substance [...] mL, 3 Refills, Maintenance, 09/15/22 8:02:00 EST, [facility] [id number], 30, TAKE 1 PUFF BY MOUTH 4 TIMES A DAY, 154.9, cm, 08/21/22 10:34:00 EST, Height, 96, kg, 04/17/22 14:30:00 EDT, Dry Weight Start Date: 09/15/22 Status: Ordered diclofenac 1% topical gel 1 application, Topically, 4 times a day, PRN Pain , Moderate, # 100 Gm, 1 Refills, Maintenance, 06/03/22 11:10:00 EDT, Gel, [facility]/pharmacy #[id number], Partial fill upon patient request if the prescription is for a schedule II opioid drug., 61, cm, 05/30/22 1... Start Date: 06/03/22 Status: Ordered ibuprofen 600 mg oral tablet 600 mg, 1, tablet, By Mouth, Every 6 hours, PRN, # 40 tablet, Refills 0, Tot. Refills 0, Maintenance, Pain , Mild, 07/18/22 14:31:00 EST, Route to Pharmacy Electronically, [facility]/pharmacy #[id number], Partialfill upon patient request if [...] Refills, Maintenance, 07/01/22 9:17:00 EDT, Solution, [facility]/pharmacy #[id number], Partial fill upon patient request if the prescription is for a schedule IIopioid drug., 154.9, cm, 06/26/22 11:28:00 EDT, Hei... Start Date: 07/01/22 Stop Date: 07/08/22 Status: Ordered Plus Low Iron oral tablet 1 tablet, By Mouth, Daily, # 90 tablet, 1 Refills, Maintenance, 10/07/22 7:38:00 EST, [id number], 90, TAKE 1 TABLET BY MOUTH EVERY [...] Personnel Name: Sebastien HUYNH, Lashae Lozano Position: S Primary Care Physician Member Role: PCP Address: Address: [address] [place] [address]- Care Team Related Persons Name: JUSTIN PEPPER Address: [address] Name: TODD KAIN Address: [address] Address: [address] [address] Name: TARSHA DANGELO Address: [address]
--- OUTSIDE RECORDS SUMMARY | 2024-01-28 06:11 | XMS_ITS | Continuity of Care Document ---
Author Organization [facility] Address [address] [facility], 4t h [address] [place] [address]- Care Team Providers Care Ruling Technician Name Role Phone Name [place] HUYNH Primary Care Physician Encounter [facility] Date(s): 08/01/20 - 10/13/20 [facility] [address] [place] [address], 4th [address] [place] [address]- Attending Physician: Tressa Graves MD Allergies, Adverse [...]
--- OUTSIDE RECORDS SUMMARY | 2024-01-28 06:11 | XMS_ITS | Continuity of Care Document ---
Author Organization [facility] Martina [employer]ana [employer] [facility] Address [address] [place] [address], [address] [place] [address]- Care Team Providers Care Senior Planning Manager Name Role Phone Name [place] HUYNH Primary Care Physician Encounter [facility] Date(s): 11/20/21 - 11/27/21 [facility] [employer] [facility] [address] [facility], [address] [place] [address]- Attending Physician: Jose HUYNH [OB], Dariana Pena Allergies, [...] 9:42:00 EST, Route to Pharmacy Electronically, [facility]/pharmacy #[id number], Partial fill upon patient request if the [...] 1 Refills, Maintenance, 11/06/20 16:46:00 EST, [facility]/pharmacy #[id number], Partial fill upon patient request if the [...] Required Details, Route to Pharmacy Electronically, [facility]/pharmacy #[id number], Partial fill upo... Start Date: 11/22/20 [...] 1 Refills, Maintenance, 10/07/21 16:30:00 EST, [facility]/pharmacy#[id number], Partial fill upon patient request if the [...] DAY, # 120 capsule, 1 Refills, [id number], 155, cm, 01/02/21 9:19:00 EDT, Height Start Date: 08/13/21 Status: Ordered Provera 10 mg oral tablet 10 mg, 1, tablet, By Mouth, Daily, start tomorrow if test is negative, # 10 tablet, Refills 0, Tot. Refills 0, Maintenance, 12/13/20 13:05:00 EDT, Route to Pharmacy Electronically, [facility]/pharmacy #[id number], Partial fill upon patient request if [...] oldest [Reference Range]: 1 Height 155 cm (11/20/21 10:49 AM) Weight 104.88 kg (11/20/21 10:49 AM) Body Mass Index [18.5-24.99] 43.65 *>HHI* (11/20/21 10:49 AM) Blood Pressure [90-138/55-84 mm Hg] 118/ 74mm Hg (11/20/21 10:49 AM) Blood pressure sites Arm, right (11/20/21 10:49 AM) Weight Obtained Via Standing scale (11/20/21 10:49 AM) Social History Social History Type Response Smoking Status Never (less than 100 in lifetime) entered on: 08/27/21 Sex
--- OUTSIDE RECORDS SUMMARY | 2024-01-28 06:11 | XMS_ITS | Continuity of Care Document ---
Author Organization [facility] [email or web address] [facility] Address [address] [place] [address], [address] [place] [address]- Care Team Providers Care Elementary Vocal Music Teacher Name Role Phone Lashae Crowe MD, V Primary Care Physician [place] [facility] [place] - 05/28/22 [facility] [email or web address] [facility] [address] [facility], [address] [place] [address]- Allergies, Adverse Reactions, Alerts Substance Reaction Severity [...] Refills, Maintenance, 05/15/22 9:21:00 EDT, [facility]erosol, [id number], Partial fill upon patient request if the [...] Personnel Name: Lashae Crowe MD, V Address: [address] [place] [address]
--- OUTSIDE RECORDS SUMMARY | 2024-01-28 06:11 | XMS_ITS | Continuity of Care Document ---
Author Organization [facility] Address [address] [facility], 4t [place] [address]- Care Team Providers Care Organ Grinder Name Role Phone Sebastien HUYNH, Lashae Lozano Primary Care Physician Encounter [facility] Date(s): 09/18/22 - 10/18/22 [facility] [address] [facility], [address] [place] [address]- Attending Physician: Whitney Cheng Admitting Physician: AdmWhitney canseco Referring Physician: [id number] Allergies, Adverse Reactions, Alerts Substance Reaction Severity [...] each, 0 Refills, Maintenance, 10/17/22 11:33:00 EST, [facility]/pharmacy #[id number], Partial fill upon patient request if the prescription is for a schedule II opioid drug., Please dispense 2... Start Date: 10/17/22 Status: Ordered Combivent Respimat 20 mcg-100 mcg/inh inhalation aerosol 1 puffs, Inhalation, 4 times a day, # 4 mL, 3 Refills, Maintenance, 09/15/22 8:02:00 EST, [facility] [id number], 30, TAKE 1 PUFF BY MOUTH 4 TIMES A DAY, 154.9, cm, 08/21/22 10:34:00 EST, Height, 96, kg, 04/17/22 14:30:00 EDT, Dry Weight Start Date: 09/15/22 Status: Ordered diclofenac 1% topical gel 1 application, Topically, 4 times a day, PRN Pain , Moderate, # 100 Gm, 1 Refills, Maintenance, 06/03/22 11:10:00 EDT, Gel, [facility]/pharmacy #[id number], Partial fill upon patient request if the prescription is for a schedule II opioid drug., 61, cm, 05/30/22 1... Start Date: 06/03/22 Status: Ordered ibuprofen 600 mg oral tablet 600 mg, 1, tablet, By Mouth, Every 6 hours, PRN, # 40 tablet, Refills 0, Tot. Refills 0, Maintenance, Pain , Mild, 07/18/22 14:31:00 EST, Route to Pharmacy Electronically, [facility]/pharmacy #[id number], Partialfill upon patient request if the [...] 0 Refills, Maintenance, 07/01/22 9:17:00 EDT, Solution, [facility]/pharmacy #[id number], Partial fill upon patient request if the prescription is for a schedule IIopioid drug., 154.9, cm, 06/26/22 11:28:00 EDT, Hei... Start Date: 07/01/22 Stop Date: 07/08/22 Status: Ordered Plus Low Iron oral tablet 1 tablet, By Mouth, Daily, # 90 tablet, 1 Refills, Maintenance, 10/07/22 7:38:00 EST, [id number], 90, TAKE 1 TABLET BY MOUTH EVERY [...] 100 in lifetime) entered on: 07/31/20 Sex Cytology report of Cervical or vaginal smear or scraping Cyto stain * Event Display: CERTIFIED WELDING INSPECTOR Pap Test, Non- Authored Date: Patient Care team information Care Team Personnel Name: Sebastien HUYNH, Lashae Lozano Position: [facility] Primary Care Physician Member Role: PCP Address: Address: [address] [place] [address] [place] [address]- [place] Care Team Related Persons Name: JUSTIN PEPPER Address: [address] [address] Name: KAIN BROOKS Address: [address] Address: [address] [address] [place] Name: TARSHA DANGELO Address: [address] [address]
--- OUTSIDE RECORDS SUMMARY | 2024-01-28 06:11 | XMS_ITS | Continuity of Care Document ---
Author Organization [facility] Address [address] [facility], 4t [address] [place] [address]- Care Team Providers Care Wire Tester Name Role Phone Name Boston HUYNH Primary Care Physician [phone] [place] [facility] [place] 08/09/20 - 09/08/20 [facility] [address] [facility], 4th [address] [place], [place] [address] Allergies, Adverse Reactions, Alerts Substance Reaction [...]
--- OUTSIDE RECORDS SUMMARY | 2024-01-28 06:11 | XMS_ITS | Continuity of Care Document ---
Author Organization [facility] [employer] Address [address] [facility], [address] [place] [address]- Care Team Providers Care Peoplesoft Developer Name Role Phone Name [place] HUYNH Primary Care Physician Encounter [facility] Date(s): 10/07/21 - 11/06/21 [facility] [employer] [address] [facility], [address] [place], [place] [address] Allergies, Adverse Reactions, Alerts Substance [...] 08/29/21 9:42:00 EST, Route to Pharmacy Electronically, [facility]/pharmacy #[id number], Partial fill upon patient [...] tablet, 1 Refills, Maintenance, 11/06/20 16:46:00 EST, [facility]/pharmacy #[id number], Partial fill upon patient [...] Replace Required Details, Route to Pharmacy Electronically, [facility]/pharmacy #[id number], Partial fill upo... Start Date: 11/22/20 Status: [...] A DAY, # 120 capsule, 1 Refills, [id number], 155, cm, 01/02/21 9:19:00 EDT, Height Start Date: 08/13/21 Status: Ordered Provera 10 mg oral tablet 10 mg, 1, tablet, By Mouth, Daily, start tomorrow if test is negative, # 10 tablet, Refills 0, Tot. Refills 0, Maintenance, 12/13/20 13:05:00 EDT, Route to Pharmacy Electronically, [facility]/pharmacy #[id number], Partial fill upon patient [...] Refills, Maintenance, 11/01/21 8:47:00 EST, [facility], [id number], Partial fill upon patient request if the [...]
--- OUTSIDE RECORDS SUMMARY | 2024-01-28 06:11 | XMS_ITS | Continuity of Care Document ---
Author Organization [facility] Address [address] [facility], 4t [address] [place] [address]- Care Team Providers Care Communications Programmer Name Role Phone Name Boston HUYNH Primary Care Physician [phone] Encounter [facility] Date(s): 10/25/20 - 11/24/20 [facility] [address] [facility], 4th [address] [place], [place] [address] Allergies, Adverse Reactions, Alerts Substance [...] tablet, 1 Refills, Maintenance, 11/06/20 16:46:00 EST, [facility]/pharmacy #[id number], Partial fill upon [...] 11/06/20 15:03:00 EST, Route to Pharmacy Electronically, [facility]/pharmacy #[id number], Partial fill upon patient request if the presc... Start Date: 11/06/20 Stop Date: 12/08/20 Status: Ordered ibuprofen 800 mg oral tablet See Instructions, 1 tablet By Mouth 30 minutes prior to procedure, # 5 tablet, Refills 0, Tot. Refills 0, Maintenance, 11/22/20 17:08:00 EDT, Instructions Replace Required Details, Route to Pharmacy Electronically, [facility]/pharmacy #[id number], Partial fill upo... Start Date: 11/22/20 Status: Ordered Lessina 100 mcg-20 mcg oral tablet 1 tablet, By Mouth, Daily, Begin taking 1 ACTIVE Tablet on first day of period continuously, continue taking until instructed to stop by physician, # 28 tablet, 1 Refills, Maintenance, 10/23/20 12:34:00 EST, [facility]/pharmacy #[id number], Partial fill upon patie... Start Date: [...] 11/06/20 17:03:00 EST, Route to Pharmacy Electronically, [facility]/pharmacy #[id number], Partial fill upon [...]
--- OUTSIDE RECORDS SUMMARY | 2024-01-28 06:11 | XMS_ITS | Continuity of Care Document ---
Author Organization [facility] [employer] Address [address] [place] [address], [address] [place] [address]- Care Team Providers Care Drawing Tender Name Role Phone Name Boston HUYNH Primary Care Physician [phone] [place] [facility] Date(s): 05/06/22 - 05/13/22 [facility] [employer] [facility] [address] [facility], 4th [place] [address]- Attending Physician: Cara Schmitz MD Referring Physician: Apoorva Turpin DO Allergies, Adverse Reactions, Alerts Substance Reaction Severity [...] 0, Lianne... Start Date: 03/15/22 Status: Ordered Augmentin 875 mg-125 mg oral tablet 1 tablet, By Mouth, 2 times a day, for 5 days, # 10 each, 0 Refills, Acute 05/18/22 15:53:00 EDT, 05/13/22 15:53:00 EDT, [facility]/pharmacy #[id number], Partial fill upon patient request if the prescription is for a schedule II opioid drug., 61, cm, 05/06/22 13:0... Start Date: 05/13/22 Stop Date: 05/18/22 Status: Ordered Combivent 103 mcg-18 mcg/inh inhalation [...] 0 Refills, Maintenance, 03/15/22 5:23:00 EDT, Capsule, [facility]/pharmacy #[id number], Partial fill upon patient request [...] 03/15/22 5:23:00 EDT, Route to Pharmacy Electronically, [facility]/pharmacy #[id number], Partial fill upon patient request if the prescription... Start Date: 03/15/22 Status: Ordered PNV Plus oral tablet 1 tablet, By Mouth, Daily, # 90 tablet, 1 Refills, Maintenance, 10/07/21 16:30:00 EST, [facility]/pharmacy#[id number], Partial fill upon patient request if the prescription is for a schedule II opioid drug., 1 tablet By Mouth Daily, 155, cm, 09/25/21 10:47:00 EST... Start Date: 10/07/21 Status: Ordered Vitamin B-12 500 mcg oral tablet 1 tablet = 500 mcg, By Mouth, Daily, # 90 tablet, 3 Refills, Maintenance, 11/01/21 8:45:00 EST, Tablet, [facility]/pharmacy #[id number], Partial fill upon patient request if the prescription is for a schedule II opioid drug., 155, cm, 10/28/21 11:50:00 EST, Height... Start Date: 11/01/21 Status: Ordered Vitamin D2 2000 intl units oral capsule 1 capsule = 50 mcg, By Mouth, Daily, with food, # 90 capsule, 3 Refills, Maintenance, 11/01/21 8:47:00 EST, [facility], [id number], Partial fill upon patient request if the [...] oldest [Reference Range]: 1 Height 61 cm (05/06/22 1:03 PM) Weight 96 kg (05/06/22 1:03 PM) Pulse Rate [55-90 bpm] 65 bpm (05/06/22 1:03 PM) Body Mass Index [18.5-24.99] 258 *>HHI* (05/06/22 1:03 PM) Blood Pressure [90-138/55-84 mm Hg] 118/ 63mm Hg (05/06/22 1:03 PM) Respiratory Rate [16-30 br/min] 16 br/mi n (05/06/22 1:03 PM) Blood pressure sites Arm, left (05/06/22 1:03 PM) Weight Obtained Via Standing scale (05/06/22 1:03 PM) Social History Social History Type Response Smoking Status Never (less than 100 in lifetime) entered on: 08/27/21 Sex Care Team Personnel Name: Boston Ohara MD Address: [address] [place] [id number]
--- OUTSIDE RECORDS SUMMARY | 2024-01-28 06:11 | XMS_ITS | Continuity of Care Document ---
Author Organization [facility] Medicine Address [address] [place] [address]- Care Team Providers Care Vet Tech Name Role Phone Name [place] HUYNH Primary Care Physician Encounter [facility] Date(s): 12/16/21 - 01/15/[address] [address]- Allergies, Adverse Reactions, Alerts Substance Reaction Severity [...] 08/29/21 9:42:00 EST, Route to Pharmacy Electronically, [facility]/pharmacy #[id number], Partial fill upon patient request if the [...]
--- OUTSIDE RECORDS SUMMARY | 2024-01-28 06:11 | XMS_ITS | Continuity of Care Document ---
Author Organization [facility] Address [address] [place] [address]- Care Team Providers Care Piecer Up Name Role Phone Name [place] HUYNH Primary Care Physician [place] [facility] 11/06/20 - 11/06/[address] [address] Discharge Disposition: A-D/C Home Attending Physician: Tressa Graves MD Admitting Physician: Tressa Graves MD Referring Physician: Tressa Graves MD Allergies, Adverse Reactions, [...] 11/06/20 15:03:00 EST, Route to Pharmacy Electronically, [facility]- [...] tablet, 1 Refills, Maintenance, 10/23/20 12:34:00 EST, [facility]/pharmacy #[id number], Partial fill upon patie... Start Date: [...] 11/06/20 17:03:00 EST, Route to Pharmacy Electronically, [facility]/pharmacy #[id number], Partial fill upon patient request if th... Start Date: 11/06/20 Stop Date: 12/07/20 Status: Ordered OxyCODONE IR Tablet 5 mg, Tablet, By Mouth, Every 4 hours, in PACU ONLY, if patient can tolerate PO, PRN for Pain , Mild, Routine, 11/06/20 15:47:00 EST Start Date: 11/06/20 Stop Date: 11/13/20 Status: Ordered Multivitamins By Mouth, Daily, 0 Refills, Maintenance, 10/23/20 10:04:00 EST, Partial fill upon patient request if the prescription is for a schedule II opioid drug. 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 Vital Signs Most recent to oldest [Reference Range]: 1 2 3 Weight 104.2 kg (11/06/20 2:35 PM) Oxygen Saturation [94-100 %] 99 % (11/06/20 6:00 PM) 100 % (11/06/20 5:45 PM) 97 % (11/06/20 5:30 PM) Pulse Rate [55-90 bpm] 61 bpm (11/06/20 2:35 PM) Blood Pressure [90-138/55-84 mm Hg] 133/73mm Hg (11/06/20 6:00 PM) 132/55mm Hg (11/06/20 5:45 PM) 110/63mm Hg (11/06/20 5:30 PM) Respiratory Rate [16-30 br/min] 16 br/min (11/06/20 6:20 PM) 22 br/min (11/06/20 6:00 PM) 25 br/min (11/06/20 5:45 PM) Temperature [96.8-100.4 DegF] 97.2 DegF (11/06/20 5:45 PM) 97.5 DegF (11/06/20 4:50 PM) 98.6 DegF (11/06/20 2:35 PM) Mode of Delivery (Oxygen) Room air (11/06/20 6:00 PM) Room air (11/06/20 5:45 PM) Room air (11/06/20 5:30 PM) Blood pressure sites Arm, right (11/06/20 6:00 PM) Arm, right (11/06/20 5:45 PM) Arm, right (11/06/20 4:50 PM) Temperature Route Temporal (11/06/20 5:45 PM) Temporal (11/06/20 4:50 PM) Temporal (11/06/20 2:35 PM) Social History Social History Type Response Smoking Status Never (less than 100 in lifetime) entered on: 07/31/20 Sex
--- OUTSIDE RECORDS SUMMARY | 2024-01-28 06:11 | XMS_ITS | Continuity of Care Document ---
Author Organization [facility] Address [address] [place] [address]- Care Team Providers Care Vb Developer Name Role Phone Sebastien HUYNH, Lashae Lozano Primary Care Physician [facility] Date(s): 01/07/23 - 02/06/23 [facility] [address] [place], [place] [address] Allergies, Adverse Reactions, Alerts Substance Reaction [...] mL, 3 Refills, Maintenance, 09/15/22 8:02:00 EST, [facility] [id number], 30, TAKE 1 PUFF BY MOUTH 4 TIMES A DAY, 154.9, cm, 08/21/22 10:34:00 EST, Height, 96, kg, 04/17/22 14:30:00 EDT, Dry Weight Start Date: 09/15/22 Status: Ordered diclofenac 1% topical gel 1 application, Topically, 4 times a day, PRN Pain , Moderate, # 100 Gm, 1 Refills, Maintenance, 06/03/22 11:10:00 EDT, Gel, [facility]/pharmacy #[id number], Partial fill upon patient request if the prescription is for a schedule II opioid drug., 61, cm, 05/30/22 1... Start Date: 06/03/22 Status: Ordered ibuprofen 600 mg oral tablet 600 mg, 1, tablet, By Mouth, Every 6 hours, PRN, # 40 tablet, Refills 0, Tot. Refills 0, Maintenance, Pain , Mild, 07/18/22 14:31:00 EST, Route to Pharmacy Electronically, [facility]/pharmacy #[id number], Partialfill upon patient [...] tablet, 1 Refills, Maintenance, 10/07/22 7:38:00 EST, [id number], 90, TAKE 1 TABLET BY MOUTH EVERY DAY, 154.9, cm, 09/30/22 16:07:00 EST, Height, 96, kg, 04/17/2214:30:00 EDT, Dry Weight Start Date: 10/07/22 Status: Ordered sertraline 25 mg oral tablet 1 tablet = 25 mg, By Mouth, Daily in AM, # 30 tablet, 3 Refills, Maintenance, 12/31/22 9:46:00 EDT,Tablet, [id number], Partial fill upon patient request if the [...] Personnel Name: Lashae Crowe MD, V Position: [facility] Physician - Primary Care Member Role: PCP Address: Address: [address] [place] [address] Name: Dee Dee Roberts Position: [facility] Outreach Member Role: Lifetime Consulting Physician Care Team Related Persons Name: JUSTIN PEPPER Address: [address] [address] Name: KAIN BROOKS Address: [address] Address: home [address] [address] [place] Name: TARSHA DANGELO Address: home [address] [address]
--- OUTSIDE RECORDS SUMMARY | 2024-01-28 06:11 | XMS_ITS | Continuity of Care Document ---
Author Organization [facility] Atilio umesh Address [address] [place] [address] [address] [place] [address]- Care Team Providers Care Supervisor Boat Outfitting Name Role Phone Sebastien HUYNH, Lashae Lozano Primary Care Physician [facility]counter [facility] Date(s): 07/09/23 - 09/05/23 [facility] [address] [place] [address]- Attending Physician: Lisa Urena MD Allergies, Adverse Reactions, [...] mL, 3 Refills, Maintenance, 09/15/22 8:02:00 EST, [facility] [id number], 30, TAKE 1 PUFF BY MOUTH 4 TIMES A DAY, 154.9, cm, 08/21/22 10:34:00 EST, Height, 96, kg, 04/17/22 14:30:00 EDT, Dry Weight Start Date: 09/15/22 Status: Ordered diclofenac 1% topical gel 1 application, Topically, 4 times a day, PRN Pain , Moderate, # 100 Gm, 3 Refills, Maintenance, 05/18/23 11:18:00 EDT, Gel, [facility]/pharmacy #[id number], Partial fill upon patient request if the prescription is for a schedule II opioid drug., 154, cm, 12/19/22... Start Date: 05/18/23 Status: Ordered ibuprofen 600 mg oral tablet 600 mg, 1, tablet, By Mouth, Every 6 hours, PRN, # 40 tablet, Refills 0, Tot. Refills 0, Maintenance, Pain , Mild, 07/18/22 14:31:00 EST, Route to Pharmacy Electronically, [facility]/pharmacy #[id number], Partialfill upon patient request [...] capsule, 3 Refills, Maintenance, 05/05/23 12:09:00EDT, Capsule, [facility]/pharmacy #[id number], Partial fill upon patient request if the prescription is for a schedule II opioid drug., 154, cm, 12/19/22 13:01:00 E... Start Date: 05/05/23 Status: Ordered Plus Low Iron oral tablet 1 tablet, By Mouth, Daily, # 90 tablet, 1 Refills, Maintenance, 10/07/22 7:38:00 EST, [id number], 90, TAKE 1 TABLET BY MOUTH EVERY DAY, 154.9, cm, 09/30/22 16:07:00 EST, Height, 96, kg, 04/17/2214:30:00 EDT, Dry Weight Start Date: 10/07/22 Status: Ordered sertraline 25 mg oral tablet 1 tablet, By Mouth, Daily in AM, # 90 tablet, 1 Refills, Maintenance, 04/27/23 9:08:00 EDT, [id number], 154, cm, 12/19/22 13:01:00 EDT, Height, 108, [...] Personnel Name: Lashae Crowe MD, V Position: [facility] Physician - Primary Care Member Role: PCP Address: Address: [address] [place] [address]- Name: Dee Dee Roberts Position: [facility] Outreach Member Role: Lifetime Consulting Physician Care Team Related Persons Name: JUSTIN PEPPER Address: home [address] [address] Name: TODD KAIN Address: [address] Address: home [address] [address] [place] Name: TARSHA DANGELO Address: home [address]
--- OUTSIDE RECORDS SUMMARY | 2024-01-28 06:11 | XMS_ITS | Continuity of Care Document ---
Author Organization [facility] Address [address] [place] [address]- Care Team Providers Care Flexo Press Operator Name Role Phone Sebastien HUYNH, Lashae Lozano Primary Care Physician Encounter [facility] Date(s): 11/19/23 - 01/17/[address] [address]- Attending Physician: Lisa Urena MD Admitting Physician: [...] mL, 3 Refills, Maintenance, 09/15/22 8:02:00 EST, [facility] [id number], 30, TAKE 1 PUFF BY MOUTH 4 TIMES A DAY, 154.9, cm, 08/21/22 10:34:00 EST, Height, 96, kg, 04/17/22 14:30:00 EDT, Dry Weight Start Date: 09/15/22 Status: Ordered diclofenac 1% topical gel 1 application, Topically, 4 times a day, PRN Pain , Moderate, # 100 Gm, 3 Refills, Maintenance, 05/18/23 11:18:00 EDT, Gel, [facility]/pharmacy #[id number], Partial fill upon patient request if the prescription is for a schedule II opioid drug., 154, cm, 12/19/22... Start Date: 05/18/23 Status: Ordered ibuprofen 600 mg oral tablet 600 mg, 1, tablet, By Mouth, Every 6 hours, PRN, # 40 tablet, Refills 0, Tot. Refills 0, Maintenance, Pain , Mild, 07/18/22 14:31:00 EST, Route to Pharmacy Electronically, [facility]/pharmacy #[id number], Partialfill upon patient request if [...] capsule, 3 Refills, Maintenance, 05/05/23 12:09:00EDT, Capsule, [facility]/pharmacy #[id number], Partial fill upon patient request if the prescription is for a schedule II opioid drug., 154, cm, 12/19/22 13:01:00 E... Start Date: 05/05/23 Status: Ordered Plus Low Iron oral tablet 1 tablet, By Mouth, Daily, # 90 tablet, 1 Refills, Maintenance, 10/07/22 7:38:00 EST, [id number], 90, TAKE 1 TABLET BY MOUTH EVERY DAY, 154.9, cm, 09/30/22 16:07:00 EST, Height, 96, kg, 04/17/2214:30:00 EDT, Dry Weight Start Date: 10/07/22 Status: Ordered sertraline 25 mg oral tablet 1 tablet, By Mouth, Daily in AM, # 90 tablet, 1 Refills, Maintenance, 04/27/23 9:08:00 EDT, [id number], 154, cm, 12/19/22 13:01:00 EDT, Height, 108, [...] Crowe MD, V Position: [facility] Physician - Primary Care Member Role: PCP Address: Address: [address] [place] [address]- Name: Dee Dee Roberts Position: [facility] Outreach Member Role: Lifetime Consulting Physician Care Team Related Persons Name: JUSTIN PEPPER Address: home [address] [address] Name: TODD KAIN Address: [address] Address: [address] [address] [place] Name: TARSHA DANGELO Address: home [address]
--- OUTSIDE RECORDS SUMMARY | 2024-01-28 06:11 | XMS_ITS | Continuity of Care Document ---
Author Organization [facility] Martinarod Bates [employer] [facility] Address [address] [place] [address], [address] [place] [address]- Care Team Providers Care Training Developer Name Role Phone Name [place] HUYNH Primary Care Physician [phone] Encounter [facility] R [id number] Date(s): 12/20/21 - 04/19/22 [facility] [employer] [facility] [address] [facility], [address] [place] [address]- Attending Physician: Diego Pope MD Allergies, Adverse [...] 0 Refills, Maintenance, 03/15/22 5:23:00 EDT, Capsule, [id number], Partial fill upon [...] 03/15/22 5:23:00 EDT, Route to Pharmacy Electronically, [facility]/pharmacy #[id number], Partial fill upon patient request if the prescription... Start Date: 03/15/22 Status: Ordered PNV Plus oral tablet 1 tablet, By Mouth, Daily, # 90 tablet, 1 Refills, Maintenance, 10/07/21 16:30:00 EST, [facility]/pharmacy#[id number], Partial fill upon patient request if the prescription is for a schedule II opioid drug., 1 tablet By Mouth Daily, 155, cm, 09/25/21 10:47:00 EST... Start Date: 10/07/21 Status: Ordered Vitamin B-12 500 mcg oral tablet 1 tablet = 500 mcg, By Mouth, Daily, # 90 tablet, 3 Refills, Maintenance, 11/01/21 8:45:00 EST, Tablet, [facility]/pharmacy #[id number], Partial fill upon patient request if the prescription is for a schedule II opioid drug., 155, cm, 10/28/21 11:50:00 EST, Height... Start Date: 11/01/21 Status: Ordered Vitamin D2 2000 intl units oral capsule 1 capsule = 50 mcg, By Mouth, Daily, with food, # 90 capsule, 3 Refills, Maintenance, 11/01/21 8:47:00 EST, Capsule, [facility]/pharmacy #[id number], Partial [...]
--- OUTSIDE RECORDS SUMMARY | 2024-01-28 06:11 | XMS_ITS | Continuity of Care Document ---
Author Organization [facility] Address [address], [address] [place] [address]- Care Team Providers Care Health Physicist Name Role Phone Name [place] HUYNH Primary Care Physician [phone] [place] [facility] [place] 02/05/21 - 03/07/21 [facility] [address], 4th [address] [place] [address]- Allergies, Adverse Reactions, Alerts Substance Reaction Severity [...] tablet, 1 Refills, Maintenance, 11/06/20 16:46:00 EST, [facility]/pharmacy #[id number], Partial fill upon patient request [...] Replace Required Details, Route to Pharmacy Electronically, [facility]/pharmacy #[id number], Partial fill upo... Start Date: [...] 12/13/20 13:05:00 EDT, Route to Pharmacy Electronically, [facility]/pharmacy #[id number], Partial fill upon patient request if the... 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
--- OUTSIDE RECORDS SUMMARY | 2024-01-28 06:12 | XMS_ITS | Continuity of Care Document ---
Author Organization [facility] Address Unknown Care Team Providers Care Poured Wall Foreman Name Role Phone Name [place] HUYNH Primary Care Physician Encounter [facility] Date(s): 11/01/21 - 01/11/22 [facility] Attending Physician: Not on Staff, Attending MD Referring Physician: Leandra HUYNH, Hilary Donnelly Allergies, Adverse Reactions, Alerts Substance Reaction Severity [...] 08/29/21 9:42:00 EST, Route to Pharmacy Electronically, [facility]/pharmacy #[id number], Partial fill upon patient request if the [...]
--- OUTSIDE RECORDS SUMMARY | 2024-01-28 06:12 | XMS_ITS | Continuity of Care Document ---
Author Organization [facility] Martinarod Bates [employer] Address [address] [address], 4t [place] [address]- Care Team Providers Care Copping Machine Operator Name Role Phone Lashae Crowe MD, V Primary Care Physician Encounter [facility] Date(s): 07/21/22 - 08/20/22 [facility] [address], 4th [place] [address]- Allergies, Adverse Reactions, Alerts Substance Reaction Severity [...] Kaleb rded influenza virus vaccine, inactivated 06/20/08 Akleb rded tetanus-diphtheria toxoids (Td) 08/23/04 Recorded Medications albuterol-ipratropium 100 mcg-20 mcg/inh inhalation aerosol 1 puffs, Inhalation, 4 times a day, # 4 Gm, 3 Refills, Maintenance, 05/15/22 9:21:00 EDT, Aerosol, [facility]/pharmacy #[id number], Partial fill upon patient request if the prescription is for a schedule II opioid drug., 1 puffs Inhalation 4 times a day, 61, cm, 0... Start Date: 05/15/22 Status: Ordered diclofenac 1% topical gel 1 application, Topically, 4 times a day, PRN Pain , Moderate, # 100 Gm, 1 Refills, Maintenance, 06/03/22 11:10:00 EDT, Gel, [facility]/pharmacy #[id number], Partial fill upon patient request if the prescription is for a schedule II opioid drug., 61, cm, 05/30/22 1... Start Date: 06/03/22 Status: Ordered ibuprofen 600 mg oral tablet 600 mg, 1, tablet, By Mouth, Every 6 hours, PRN, # 40 tablet, Refills 0, Tot. Refills 0, Maintenance, Pain , Mild, 07/18/22 14:31:00 EST, Route to Pharmacy Electronically, [facility]/pharmacy #[id number], Partialfill upon patient request if the [...] 0 Refills, Maintenance, 07/01/22 9:17:00 EDT, Solution, [facility]/pharmacy #[id number], Partial fill upon patient request [...] Care Physician Member Role: PCP Address: Address: [address] [place] [address]- Care Team Related Persons Name: JUSTIN PEPPER Address: home [address] [address] Name: KAIN BROOKS Address: [address] Address: home [address] [address] Name: TARSHA DANGELO Address: home [address] [address]
--- OUTSIDE RECORDS SUMMARY | 2024-01-28 06:12 | XMS_ITS | Continuity of Care Document ---
Author Organization [facility] Address [address] [place] [address]- Care Team Providers Care Inside Sales Advertising Executive Name Role Phone Sebastien HUYNH, Lashae Lozano Primary Care Physician [facility] Date(s): 05/15/23 - 06/14/23 [facility] [address] [place], [place] [address] Allergies, Adverse Reactions, Alerts Substance [...] Refills, Maintenance, 09/15/22 8:02:00 EST, [id number], 30, TAKE 1 PUFF BY MOUTH 4 TIMES A DAY, 154.9, cm, 08/21/22 10:34:00 EST, Height, 96, kg, 04/17/22 14:30:00 EDT, Dry Weight Start Date: 09/15/22 Status: Ordered diclofenac 1% topical gel 1 application, Topically, 4 times a day, PRN Pain , Moderate, # 100 Gm, 3 Refills, Maintenance, 05/18/23 11:18:00 EDT, Gel, [facility]/pharmacy #[id number], [...] Refills, Maintenance, 05/05/23 12:09:00EDT, Capsule, [facility]/pharmacy #[id number], Partial fill upon patient request if the prescription is for a schedule II opioid drug., 154, cm, 12/19/22 13:01:00 E... Start Date: 05/05/23 Status: Ordered Plus Low Iron oral tablet 1 tablet, By Mouth, Daily, # 90 tablet, 1 Refills, Maintenance, 10/07/22 7:38:00 EST, [facility], 90, TAKE 1 TABLET BY MOUTH EVERY DAY, 154.9, cm, 09/30/22 16:07:00 EST, Height, 96, kg, 04/17/2214:30:00 EDT, Dry Weight Start Date: 10/07/22 Status: Ordered sertraline 25 mg oral tablet 1 tablet, By Mouth, Daily in AM, # 90 tablet, 1 Refills, Maintenance, 04/27/23 9:08:00 EDT, [facility], 154, cm, 12/19/22 13:01:00 EDT, Height, 108, [...] Personnel Name: Lashae Crowe MD, V Position: [facility] Physician - Primary Care Member Role: PCP Address: Address: [address] [place] [address]- Name: Dee Dee Roberts Position: [facility] Outreach Member Role: Lifetime Consulting Physician Care Team Related Persons Name: JUSTIN PEPPER Address: home [address] [address] Name: KAIN BROOKS Address: [address] Address: home [address] [address] [place] Name: TARSHA DANGELO Address: home [address] [address]
--- OUTSIDE RECORDS SUMMARY | 2024-01-28 06:12 | XMS_ITS | Continuity of Care Document ---
Author Organization [facility] Address [address] [place] [address]- Care Team Providers Care Fitness Floor Attendant Name Role Phone Name [place] HUYNH Primary Care Physician [facility] Date(s): 01/14/22 - 02/13/22 [facility] [address] [place] [id number] Allergies, Adverse Reactions, Alerts Substance Reaction [...] 08/29/21 9:42:00 EST, Route to Pharmacy Electronically, [facility]/pharmacy #[id number], Partial fill upon patient request if the [...] opioid drug. Start Date: 10/23/20 Status: Ordered Paxlovid 150 mg-100 mg oral tablet See Instructions, take as directed in package, # 30 tablet, 0 Refills, Maintenance, 02/03/22 13:07:00 EDT, [id number], Partial fill upon patient request if the prescription is for a schedule II opioid drug., take as directed in package, 155, c... 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
--- OUTSIDE RECORDS SUMMARY | 2024-01-28 06:12 | XMS_ITS | Continuity of Care Document ---
Author Organization [facility] Address [address], [address] [place] [address]- Care Team Providers Care Digital Press Operator Name Role Phone Name [place] HUYNH Primary Care Physician [phone] [place] [facility] Date(s): 07/31/20 - 08/30/20 [facility] [address], [address] [place], [place] [address] Allergies, Adverse Reactions, Alerts Substance [...] of recurrent miscarriages(Confirmed) Active Hypothyroidism, postsurgical(Confirmed) Active Procedures Procedure Date Related Diagnosis Body Site Status Gastric sleeve 09/24/17 Completed Thyroidectomy 01/24/15 Completed Vital Signs Most recent to oldest [Reference Range]: 1 Height 155 cm (07/31/20 5:33 PM) Weight 100.8 kg (07/31/20 5:33 PM) Body Mass Index [18.5-24.99] 41.96 *>HHI* (07/31/20 5:33 PM) Social History Social History Type Response Smoking Status Never (less than 100 in lifetime) entered on: 07/31/20 Sex
--- OUTSIDE RECORDS SUMMARY | 2024-01-28 06:12 | XMS_ITS | Continuity of Care Document ---
Author Organization [facility] Martinarod [facility]ul[facility] [facility] Address [address] [place] [address], [address] [place] [address]- Care Team Providers Care Graphic Design Intern Name Role Phone Name [place] HUYNH Primary Care Physician [id number]): 08[facility] - 09[facility]05/21 [facility] [employer] [facility] [facility] [address], [address]th [place] [address]- Attending Physician: Cara Schmitz MD Allergies, Adverse Reactions, Alerts Substance Reaction [...] Maintenance, 11/06/20 16:46:00 EST, [facility]/pharmacy #[id number], Partial fill upon [...] Dry Weight Start Date: 08/29/21 Status: Ordered Freestyle Lite Test Strips See [...] Route to Pharmacy Electronically, [facility]/pharmacy #[id number], Partial fill upo... 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
--- OUTSIDE RECORDS SUMMARY | 2024-01-28 06:12 | XMS_ITS | Continuity of Care Document ---
Author Organization [facility] Address [address], [address] [place] [address]- Care Team Providers Care Division Service Manager Name Role Phone Name [place] HUYNH Primary Care Physician [place] [facility] 11/08/20 - 11/15/20 [facility] [address] [facility] [address] [facility] [address] [facility], 4[address] [place], [place] [address] Attending Physician: Tressa [place] MD Allergies, Adverse [...] 11/06/20 15:03:00 EST, Route to Pharmacy Electronically, [facility]/pharmacy #[id number], Partial fill upon patient request [...] 11/06/20 17:03:00 EST, Route to Pharmacy Electronically, [facility]/pharmacy #[id number], Partial fill upon patient request [...]
--- OUTSIDE RECORDS SUMMARY | 2024-01-28 06:12 | XMS_ITS | Continuity of Care Document ---
Author Organization [facility]ar[facility] Address [address], [address] [place] [address]- Care Team Providers Care Faculty Research Assistant Name Role Phone Lashae Crowe MD, V Primary Care Physician Encounter [facility] [place](s[place] 09/18/22 - 09/25/22 [facility] [address], [address] [place] [address]- Attending Physician: Not on Staff, Attending MD Referring Physician: Alexx Shaikh Allergies, Adverse Reactions, Alerts Substance Reaction Severity [...] mL, 3 Refills, Maintenance, 09/15/22 8:02:00 EST, [facility] [id number], 30, TAKE 1 PUFF BY MOUTH 4 TIMES A DAY, 154.9, cm, 08/21/22 10:34:00 EST, Height, 96, kg, 04/17/22 14:30:00 EDT, Dry Weight Start Date: 09/15/22 Status: Ordered diclofenac 1% topical gel 1 application, Topically, 4 times a day, PRN Pain , Moderate, # 100 Gm, 1 Refills, Maintenance, 06/03/22 11:10:00 EDT, Gel, [facility]/pharmacy #[id number], Partial fill upon patient request if the prescription is for a schedule II opioid drug., 61, cm, 05/30/22 1... Start Date: 06/03/22 Status: Ordered ibuprofen 600 mg oral tablet 600 mg, 1, tablet, By Mouth, Every 6 hours, PRN, # 40 tablet, Refills 0, Tot. Refills 0, Maintenance, Pain , Mild, 07/18/22 14:31:00 EST, Route to Pharmacy Electronically, [facility]/pharmacy #[id number], Partialfill upon patient request if [...] 0 Refills, Maintenance, 07/01/22 9:17:00 EDT, Solution, [facility]/pharmacy #[id number], Partial fill upon patient request [...] oldest [Reference Range]: 1 Height 154.9 cm (09/18/22 11:02 AM) Weight 105.45 kg (09/18/22 11:02 AM) Body Mass Index [18.5-24.99 kg/m2] 43.95 kg/m2 *>HHI* (09/18/22 11:02 AM) Blood Pressure [90-138/55-84 mm Hg] 135/ 73mm Hg (09/18/22 11:02 AM) Blood pressure sites Arm, left (09/18/22 11:02 AM) Weight Obtained Via Standing scale (09/18/22 11:02 AM) Social History Social History Type Response Smoking Status Never (less than 100 in lifetime) entered on: 07/31/20 Sex Patient Care team information Care Team Personnel Name: Lashae Crowe MD, V Position: [facility] Primary Care Physician Member Role: PCP Address: Address: [address] [place] [address]- Care Team Related Persons Name: JUSTIN PEPPER Address: home [address] [address] Name: KAIN BROOKS Address: Address: home [address] [address] Name: TARSHA DANGELO Address: home [address] [address]
--- OUTSIDE RECORDS SUMMARY | 2024-01-28 06:12 | XMS_ITS | Continuity of Care Document ---
Author Organization [facility] Address [address] [place] [address]- Care Team Providers Care Stone Chimney Mason Name Role Phone Sebastien HUYNH, Lashae Lozano Primary Care Physician Encounter [facility] Date(s): 09/30/22 - 10/30/22 [facility] [address] [place], [place] [address] Attending Physician: AdmWhitney [email or web address] Admitting Physician: Admtr, [id number] Referring Physician: Admtr, [...] each, 0 Refills, Maintenance, 10/17/22 11:33:00 EST, [facility]/pharmacy #[id number], Partial fill upon patient request if the prescription is for a schedule II opioid drug., Please dispense 2... Start Date: 10/17/22 Status: Ordered Combivent Respimat 20 mcg-100 mcg/inh inhalation aerosol 1 puffs, Inhalation, 4 times a day, # 4 mL, 3 Refills, Maintenance, 09/15/22 8:02:00 EST, [facility] [id number], 30, TAKE 1 PUFF BY MOUTH 4 TIMES A DAY, 154.9, cm, 08/21/22 10:34:00 EST, Height, 96, kg, 04/17/22 14:30:00 EDT, Dry Weight Start Date: 09/15/22 Status: Ordered diclofenac 1% topical gel 1 application, Topically, 4 times a day, PRN Pain , Moderate, # 100 Gm, 1 Refills, Maintenance, 06/03/22 11:10:00 EDT, Gel, [facility]/pharmacy #[id number], Partial fill upon patient request if the prescription is for a schedule II opioid drug., 61, cm, 05/30/22 1... Start Date: 06/03/22 Status: Ordered ibuprofen 600 mg oral tablet 600 mg, 1, tablet, By Mouth, Every 6 hours, PRN, # 40 tablet, Refills 0, Tot. Refills 0, Maintenance, Pain , Mild, 07/18/22 14:31:00 EST, Route to Pharmacy Electronically, [facility]/pharmacy #[id number], Partialfill upon patient request [...] Refills, Maintenance, 07/01/22 9:17:00 EDT, Solution, [facility]/pharmacy #[id number], Partial fill upon patient request if the prescription is for a schedule IIopioid drug., 154.9, cm, 06/26/22 11:28:00 EDT, Hei... Start Date: 07/01/22 Stop Date: 07/08/22 Status: Ordered Plus Low Iron oral tablet 1 tablet, By Mouth, Daily, # 90 tablet, 1 Refills, Maintenance, 10/07/22 7:38:00 EST, [id number], 90, TAKE 1 TABLET BY MOUTH EVERY [...] 100 in lifetime) entered on: 07/31/20 Sex Note * Event Display: CT Scan Neck, Non- Authored Date: * Event Display: Ultrasound Neck, Non- Authored Date: * Event Display: Ultrasound Neck, Non- Authored Date: * Event Display: [place] Nuclear [...] Personnel Name: Sebastien HUYNH, Lashae Lozano Position: [facility] Primary Care Physician Member Role: PCP Address: Address: [address] [place] [address]- Care Team Related Persons Name: JUSTIN PEPPER Address: home [address] [address] Name: KAIN BROOKS Address: [id number] Address: home [address] [address] [place] Name: TARSHA DANGELO Address: home [address] [address]
--- OUTSIDE RECORDS SUMMARY | 2024-01-28 06:12 | XMS_ITS | Continuity of Care Document ---
Author Organization [facility] Address [address] [place] [address]- Care Team Providers Care Stock Driver Name Role Phone Name [place] HUYNH Primary Care Physician Encounter [facility] [place] Date(s): 03/24/22 - 04/23/[address] [address]- Allergies, Adverse Reactions, Alerts Substance Reaction Severity [...] 0 Refills, Maintenance, 03/15/22 5:23:00 EDT, Capsule, [facility]/pharmacy #[id number], Partial fill upon patient [...] 03/15/22 5:23:00 EDT, Route to Pharmacy Electronically, [facility]/pharmacy #[id number], Partial fill upon patient request if the prescription... Start Date: 03/15/22 Status: Ordered PNV Plus oral tablet 1 tablet, By Mouth, Daily, # 90 tablet, 1 Refills, Maintenance, 10/07/21 16:30:00 EST, [facility]/pharmacy#[id number], Partial fill upon patient request if the prescription is for a schedule II opioid drug., 1 tablet By Mouth Daily, 155, cm, 09/25/21 10:47:00 EST... Start Date: 10/07/21 Status: Ordered Vitamin B-12 500 mcg oral tablet 1 tablet = 500 mcg, By Mouth, Daily, # 90 tablet, 3 Refills, Maintenance, 11/01/21 8:45:00 EST, Tablet, [facility]/pharmacy #[id number], Partial fill upon patient request if the prescription is for a schedule II opioid drug., 155, cm, 10/28/21 11:50:00 EST, Height... Start Date: 11/01/21 Status: Ordered Vitamin D2 2000 intl units oral capsule 1 capsule = 50 mcg, By Mouth, Daily, with food, # 90 capsule, 3 Refills, Maintenance, 11/01/21 8:47:00 EST, Capsule, [facility]/pharmacy #[id number], Partial fill upon patient [...]
--- OUTSIDE RECORDS SUMMARY | 2024-01-28 06:12 | XMS_ITS | Continuity of Care Document ---
Author Organization [facility] ter Address [address] [place] [id number]- Care Team Providers Care Skin Former Name Role Phone Lashae Crowe MD, V Primary Care Physician Encounter [facility] [place] Date(s): 11/04/22 - 11/04/[address] [address]- Discharge Disposition: A-D/C Home Attending Physician: Beto Henry MD Admitting Physician: Beto Henry MD Referring Physician: Not on Staff, Referring MD Allergies, Adverse Reactions, Alerts Substance Reaction [...] each, 0 Refills, Maintenance, 10/17/22 11:33:00 EST, [facility]/pharmacy #[id number], Partial fill upon patient request if the prescription is for a schedule II opioid drug., Please dispense 2... Start Date: 10/17/22 Status: Ordered Combivent Respimat 20 mcg-100 mcg/inh inhalation aerosol 1 puffs, Inhalation, 4 times a day, # 4 mL, 3 Refills, Maintenance, 09/15/22 8:02:00 EST, [facility] [id number], 30, TAKE 1 PUFF BY MOUTH 4 TIMES A DAY, 154.9, cm, 08/21/22 10:34:00 EST, Height, 96, kg, 04/17/22 14:30:00 EDT, Dry Weight Start Date: 09/15/22 Status: Ordered diclofenac 1% topical gel 1 application, Topically, 4 times a day, PRN Pain , Moderate, # 100 Gm, 1 Refills, Maintenance, 06/03/22 11:10:00 EDT, Gel, [facility]/pharmacy #[id number], Partial fill upon patient request if the prescription is for a schedule II opioid drug., 61, cm, 05/30/22 1... Start Date: 06/03/22 Status: Ordered ibuprofen 600 mg oral tablet 600 mg, 1, tablet, By Mouth, Every 6 hours, PRN, # 40 tablet, Refills 0, Tot. Refills 0, Maintenance, Pain , Mild, 07/18/22 14:31:00 EST, Route to Pharmacy Electronically, [facility]/pharmacy #[id number], Partialfill upon patient request if [...] 0 Refills, Maintenance, 07/01/22 9:17:00 EDT, Solution, [facility]/pharmacy #[id number], Partial fill upon patient request if the prescription is for a schedule IIopioid drug., 154.9, cm, 06/26/22 11:28:00 EDT, Hei... Start Date: 07/01/22 Stop Date: 07/08/22 Status: Ordered MorPHINE Inj 4 mg, Injection, IV Push Slowly, Once, STAT, 11/04/22 11:40:00 EST, Stop date 11/04/22 11:40:00 EST Start Date: 11/04/22 Stop Date: 11/04/22 Status: Completed ondansetron 4 mg oral tablet, disintegrating 1 tablet = 4 mg, By Mouth, Every 8 hours, PRN as needed for nausea/vomiting, for 3 days, # 9 tablet, 0 Refills, Acute 11/07/22 14:26:00 EST, 11/04/22 14:26:00 EST, DIS Tablet, [facility]/pharmacy #[id number], Partial fill upon patient request if the prescription i... Start Date: 11/04/22 Stop Date: 11/07/22 Status: Ordered Plus Low Iron oral tablet 1 tablet, By Mouth, Daily, # 90 tablet, 1 Refills, Maintenance, 10/07/22 7:38:00 EST, [facility] STORE [id number], 90, TAKE 1 TABLET BY MOUTH EVERY [...] postsurgical Confirmed Active Severe obesity Confirmed Active Results Radiology Reports * Exam Date Time Procedure Performing Provider Status 11/04/22 1:[address] Abd/Pelvis W/ IV + Oral Contrast Marce Murphy; Auth (Verified) Notes: (CT Abd/Pelvis W/ IV + Oral Contrast) Reason For Exam: epigastric abdominal pain;Other: RESULT: CT Abd/Pelvis W/ IV + Oral Contrast CT Abd/Pelvis W/ IV + Oral Contrast Hx of Present Illness: epigastric pain radiating up to midsternal chest and down to RUQ since 1am. Reports came in recently in early Oct for same complaint, had CT done but didn't hear the results. Same pain is back. +nausea; Reason: Other:; epigastric abdominal pain; Clinical Question(s): Obstruction; Order Comment: TECHNIQUE: Spiral CT through the abdomen and pelvis with IV contrast formatted in 3 planes. 100 cc of Omnipaque 300 was administered intravenously. This study was performed with oral contrast. Weight-based protocol using automatic tube modulation was used to optimize exposure parameters. CTDIvol Body: 22.17 mGy, DLP Body: 1129 mGy*cm. COMPARISON: 10/29/2022. FINDINGS: [place] Findings, Lines and Tubes: Right upper quadrant surgical clips. Visualized Chest: Minimal basilar atelectasis. Unchanged 3 mm nodule in the right lung base, subpleural and likely postinflammatory, series 302 image 7. No consolidation or pleural effusion. Diaphragm: Normal. Liver: Diffuse hepatic steatosis Gallbladder: No CT evidence of gallbladder pathology. Bile ducts: No biliary ductal dilation. Spleen: Normal. Pancreas: Normal. Adrenal glands: Normal. Kidneys and ureters: No hydronephrosis, stones, or suspicious masses. Bladder: Normal. Reproductive organs: Unremarkable. Stomach, small bowel, and large bowel: Contrast in the distal small bowel and large bowel to left mid to lower colon. No bowel obstruction. Postsurgical changes of prior gastric surgery, unchanged. Prior metallic density in the right colon is not seen on today's exam. Appendix: Not seen, but no evidence of appendicitis. Peritoneum and retroperitoneum: No ascites or pneumoperitoneum. No omental or mesenteric lesions. Lymph nodes: No enlarged lymph nodes. Blood vessels: No aneurysm. No evidence of venous thrombosis. Abdominal and pelvic wall: Unremarkable. Bones: No acute abnormality. IMPRESSION: No acute abnormality on CT of the abdomen and pelvis. WSN: [id number] Ordering Physician: Anitra Collado Dictated By: Shayy Gaytan MD Dictated Date/Time: 11/04/22 1:55 pm Reviewed By: Shayy Gaytan MD Signed By: Shayy Gaytan MD Signed Date/Time: 11/04/22 1:55 pm Transcribed By: GARO Transcribed Date/Time: 11/04/22 1:40 pm * Exam Date Time Procedure Performing Provider Status 11/04/22 11:30 AM US RUQ Katie Martinez; Dillan ( Verified) Notes: (US RUQ) Reason For Exam: Abdominal Pain;Other: RESULT: US RUQ US RUQ Reason: Epigastric pain radiating up to the mid sternum with one episode of vomiting and nausea, concern for cholecystitis COMPARISON: CT abdomen and pelvis 10/29/2022, ultrasound right upper quadrant 05/23/2016 FINDINGS: Liver: Normal in size and echotexture. No focal lesion. Smooth hepatic contour. Main portal vein patent with normal hepatopetal direction of flow. Gallbladder: No gallstones. Normal wall thickness. No pericholecystic fluid. Negative Montalvo sign. Biliary Tree: No intrahepatic or extrahepatic bile duct dilation is identified. Common duct measures: 0.4 cm. Pancreas: Partially obscured by overlying bowel gas. No abnormality in the visualized portions of the pancreas. Right kidney: 11.7 cm in length. Normal parenchymal echotexture and thickness. No hydronephrosis, stone or mass. IMPRESSION: Normal right upper quadrant ultrasound. I have personally reviewed the images and I agree with this report. WSN: [id number] Ordering Physician: Anitra Collado Dictated By: Josh Jimenez MD Dictated Date/Time: 11/04/22 11:40 a Reviewed By: Nir Reinoso MD Signed By: Nir Reinoso MD Signed Date/Time: 11/04/22 11:45 am Transcribed By: GARO Transcribed Date/Time: 11/04/22 11:31 am * Exam Date Time Procedure Performing Provider Status 11/04/22 8:37 AM Chest 2 Views Frontal and Lat Dottie Aracely [email or web address]; Auth (Verified) Notes: (Chest 2 Views Frontal and Lat) Reason For Exam: Chest Pain;Other: RESULT: Chest 2 Views Frontal and Lat Chest 2 Views Frontal and Lat Hx of Present Illness: epigastric pain radiating up to midsternal chest and down to RUQ since 1am. Reports came in recently in early Oct for same complaint, had CT done but didn't hear the results. Same pain is back. +nausea; Reason: Other:; Chest Pain; Clinical Question(s): Other: COMPARISON: 06/16/2013 FINDINGS: LINES AND TUBES: None. LUNGS AND PLEURA: Clear lungs. Normal pulmonary vascularity. No pleural effusion. No pneumothorax. HEART, MEDIASTINUM AND TIWN: Heart is normal in size. Normal mediastinal and hilar contour. BONES AND SOFT TISSUES: No acute abnormality. Surgical clips in the abdomen. IMPRESSION: No acute abnormality. WSN: [id number] Ordering Physician: Mann Kathleen Dictated By: Nir Pederson MD Dictated Date/Time: 11/04/22 8:55 am Reviewed By: Nir Pederson MD Signed By: Nir Pederson MD Signed Date/Time: 11/04/22 8:55 am Transcribed By: GARO Transcribed Date/Time: 11/04/22 8:46 am Vital Signs Most recent to oldest [Reference Range]: 1 2 3 Height 154 cm (11/04/22 10:06 AM) 154 cm (11/04/22 7:50 AM) Weight 108 kg (11/04/22 10:06 AM) 108 kg (11/04/22 7:50 AM) Oxygen Saturation [94-100 %] 100 % (11/04/22 12:00 PM) 100 % (11/04/22 10:06 AM) 100 % (11/04/22 7:25 AM) Pulse Rate [55-90 bpm] 60 bpm (11/04/22 12:00 PM) 77 bpm (11/04/22 10:06 AM) 65 bpm (11/04/22 7:25 AM) Body Mass Index [18.5-24.99 kg/m2] 45.54 kg/m2 *>HHI* (11/04/22 10:06 AM) Blood Pressure [90-138/55-84 mm Hg] 129/72mm Hg (11/04/22 12:00 PM) 116/66mm Hg (11/04/22 10:06 AM) 169/85mm Hg *H* (11/04/22 7:25 AM) Respiratory Rate [16-30 br/min] 17 br/min (11/04/22 1:35 PM) 18 br/min (11/04/22 12:00 PM) 18 br/min (11/04/22 10:06 AM) Temperature [96.8-100.4 DegF] 97.8 DegF (11/04/22 12:00 PM) 98.0 DegF (11/04/22 10:06 AM) 98.3 DegF (11/04/22 7:25 AM) Mode of Delivery (Oxygen) Room air (11/04/22 12:00 PM) Room air (11/04/22 10:06 AM) Room air (11/04/22 7:25 AM) Blood pressure sites Arm, left (11/04/22 12:00 PM) Arm, right (11/04/22 10:06 AM) Temperature Route Oral (11/04/22 12:00 PM) Oral (11/04/22 10:06 AM) Oral (11/04/22 7:25 AM) Dry Weight 108 kg (11/04/22 10:06 AM) 108 kg (11/04/22 7:50 AM) Dry Weight Obtained Via Patient/family s tated (11/04/22 7:50 AM) Social History Social History Type Response Smoking Status Never (less than 100 in lifetime) entered on: 07/31/20 Sex EKG study * Event Display: ECG 12-Lead Authored Date: Please click on pdf link to open report * Event Display: ECG 12-Lead Authored Date: Ventricular Rate: 61 BPM Atrial Rate: 61 BPM P-R Interval: 146 ms QRS Duration: 96 ms Q-T Interval: 404 ms QTC Calculation(Bazett): 406 ms P Corinth: 42 degrees R Corinth: -3 degrees T Corinth: 11 degrees Normal sinus rhythm Nonspecific T wave abnormality Abnormal ECG When compared with ECG of 23-MAY-2016 19:08, No significant change was found Confirmed by CHANDA CARLSON MD ([id number]) on 11/04/2022 9:14:29 AM [place]: CHANDA CARLSON MD * Event Display: EKG Authored Date: Note * Heike Esposito: PERFORM Event Display: Patient Education Leaflets Authored Date: [id number] Unknown Causes of Abdominal Pain (Adult) ?? [id number] Unknown Causes of Abdominal Pain (Adult) The exact cause of your belly (abdominal) pain is not clear. Your exam and tests don't suggest a dangerous cause at this time. This does not mean that this is something to worry about. Everyone likesto know the exact cause of the problem. But sometimes with belly pain, there is no clear-cut cause,and this could be a good thing. Your symptoms can be treated, and you should feel better.?? Your condition does not seem serious now. But sometimes the signs of a serious problem may take more time to appear. For this reason,??it's important for you to watch for any new symptoms, problems,??or worsening of your condition. Over the next few days, the abdominal pain may come and go. Or it may be constant. Other common symptoms can include nausea and vomiting. Sometimes it can be difficult to tell if you feel nauseous. You may just feel bad and not connect that feeling to nausea. Constipation, diarrhea, and a fever maygo along with the pain. The pain may continue even if treated correctly over the following days. Depending on how things go, sometimes the cause can become clear and you may need more??or different treatment. You may also need other evaluations, medicines, or tests. Home care Your healthcare provider may prescribe medicine for pain, symptoms, or an infection. ??Follow the healthcare provider's instructions for taking these medicines. General care ??? Rest as much as you can until your next exam. No strenuous activities. ??? Try to not do anything that may have caused your symptoms. This might be not taking any medicines unless otherwise directed by your healthcare provider. It might be not eating certain foods or doing certain activities. ??? Find positions that ease discomfort. A small pillow placed on your belly may help relieve pain. ??? Something warm on your belly such as a heating pad may help, but be careful not to burn yourself. Diet ??? Don???t??force yourself to eat, especially if having cramps, vomiting, or diarrhea. ??? Water is important so you don't get dehydrated. Soup may also be good. Sports drinks may also help, especially if they are not too acidic. Don't drink sugary drinks as this can make things worse. Take liquids in small amounts. Don???t??guzzle them. ??? Caffeine sometimes makes the pain and cramping worse. ??? Don???t take??dairy products if you have vomiting or diarrhea. ??? Don't eat large amounts at a time. Eat several small meals during the day instead of 2 or 3 larger meals. Wait a few minutesbetween bites. ??? Eat a diet low in fiber (called a low-residue diet). Foods allowed include refined breads, white rice, fruit and vegetable juices without pulp, tender meats. These foods will pass more easily through the intestine. ??? Don???t have??whole-grain foods, whole fruits and vegetables,meats, seeds and nuts, fried or fatty foods, dairy, alcohol and spicy foods until your symptoms go away. ?? Follow-up care Follow up with your healthcare provider, or as advised, if your pain does not begin to improve in the next 24 hours. ?? Call 911 Call?? 911 if any of these occur: ??? Trouble breathing ??? Confusion ??? Fainting or loss of consciousness ??? Rapid heart rate ??? Seizure ?? When to seek medical advice Call your healthcare provider right away if any of these occur: ??? Pain gets worse or moves to theright lower abdomen ??? New or worsening vomiting or diarrhea ??? Swelling of the abdomen ??? Unable to pass stool for more than??3 days ??? Fever of 100.4??F (38??C) or higher, or as directed by your healthcare provider ??? Blood in vomit or bowel movements (dark red or black color) ??? Yellow color of eyes and skin (jaundice) ??? Weakness, dizziness ??? Chest, arm, back, neck, or jaw pain ??? Can't keep down medicines, liquids, or water because of too much vomiting ??? If you have a vagina: unexpected vaginal bleeding or missed period ?? Last Reviewed Date: 2021 ?? [id number] [employer]. All rights reserved. This information is not intended as a substitute for professional medical care. Always follow your healthcare professional's instructions. ?? * AFSHIN Lemus S: Nir Rodas MD: VERIFY Event Display: Result: Authored Date: [id number] Chest 2 Views Frontal and Lat Hx of Present Illness: epigastric pain radiating up to midsternal chest and down to RUQ since 1am. Reports came in recently in early Oct for same complaint, had CT done but didn't hear the results. Same pain is back. +nausea; Reason: Other:; Chest Pain; Clinical Question(s): Other: COMPARISON: 06/16/2013 FINDINGS: LINES AND TUBES: None. LUNGS AND PLEURA: Clear lungs. Normal pulmonary vascularity. No pleural effusion. No pneumothorax. HEART, MEDIASTINUM AND TWIN: Heart is normal in size. Normal mediastinal and hilar contour. BONES AND SOFT TISSUES: No acute abnormality. Surgical clips in the abdomen. IMPRESSION: No acute abnormality. WSN: [id number] Ordering Physician: Mann Kathleen Dictated By: Nir Pederson MD Dictated Date/Time: 11/04/22 8:55 am Reviewed By: Nir Pederson MD Signed By: Nir Pederson MD Signed Date/Time: 11/04/22 8:55 am Transcribed By: GARO Transcribed Date/Time: 11/04/22 8:46 am * AFSHIN Lemus S: SPIKE Jimenez MD, Josh: Nir Hwang MD: VERIFY Event Display: Result: Authored Date: [id number] US RUQ Reason: Epigastric pain radiating up to the mid sternum with one episode of vomiting and nausea, concern for cholecystitis COMPARISON: CT abdomen and pelvis 10/29/2022, ultrasound right upper quadrant 05/23/2016 FINDINGS: Liver: Normal in size and echotexture. No focal lesion. Smooth hepatic contour. Main portal vein patent with normal hepatopetal direction of flow. Gallbladder: No gallstones. Normal wall thickness. No pericholecystic fluid. Negative Montalvo sign. Biliary Tree: No intrahepatic or extrahepatic bile duct dilation is identified. Common duct measures: 0.4 cm. Pancreas: Partially obscured by overlying bowel gas. No abnormality in the visualized portions of the pancreas. Right kidney: 11.7 cm in length. Normal parenchymal echotexture and thickness. No hydronephrosis, stone or mass. IMPRESSION: Normal right upper quadrant ultrasound. I have personally reviewed the images and I agree with this report. WSN: [id number] Ordering Physician: Anitra Collado Dictated By: Josh Jimenez MD Dictated Date/Time: 11/04/22 11:40 a Reviewed By: Nir Reinoso MD Signed By: Nir Reinoso MD Signed Date/Time: 11/04/22 11:45 am Transcribed By: GARO Transcribed Date/Time: 11/04/22 11:[address] Abdomen and Pelvis W contrast IV * BHSPowerscriluiza , CIS S: SPIKE Gaytan MD, Shayy: VERIFY Event Display: Result: Authored Date: [id number] CT Abd/Pelvis W/ IV + Oral Contrast Hx of Present Illness: epigastric pain radiating up to midsternal chest and down to RUQ since 1am. Reports came in recently in early Oct for same complaint, had CT done but didn't hear the results. Same pain is back. +nausea; Reason: Other:; epigastric abdominal pain; Clinical Question(s): Obstruction; Order Comment: TECHNIQUE: Spiral CT through the abdomen and pelvis with IV contrast formatted in 3 planes. 100 cc of Omnipaque 300 was administered intravenously. This study was performed with oral contrast. Weight-based protocol using automatic tube modulation was used to optimize exposure parameters. CTDIvol Body: 22.17 mGy, DLP Body: 1129 mGy*cm. COMPARISON: 10/29/2022. FINDINGS: [place] View Findings, Lines and Tubes: Right upper quadrant surgical clips. Visualized Chest: Minimal basilar atelectasis. Unchanged 3 mm nodule in the right lung base, subpleural and likely postinflammatory, series 302 image 7. No consolidation or pleural effusion. Diaphragm: Normal. Liver: Diffuse hepatic steatosis Gallbladder: No CT evidence of gallbladder pathology. Bile ducts: No biliary ductal dilation. Spleen: Normal. Pancreas: Normal. Adrenal glands: Normal. Kidneys and ureters: No hydronephrosis, stones, or suspicious masses. Bladder: Normal. Reproductive organs: Unremarkable. Stomach, small bowel, and large bowel: Contrast in the distal small bowel and large bowel to left mid to lower colon. No bowel obstruction. Postsurgical changes of prior gastric surgery, unchanged. Prior metallic density in the right colon is not seen on today's exam. Appendix: Not seen, but no evidence of appendicitis. Peritoneum and retroperitoneum: No ascites or pneumoperitoneum. No omental or mesenteric lesions. Lymph nodes: No enlarged lymph nodes. Blood vessels: No aneurysm. No evidence of venous thrombosis. Abdominal and pelvic wall: Unremarkable. Bones: No acute abnormality. IMPRESSION: No acute abnormality on CT of the abdomen and pelvis. WSN: [id number] Ordering Physician: Anitra Collado Dictated By: Shayy Gaytan MD Dictated Date/Time: 11/04/22 1:55 pm Reviewed By: Shayy Gaytan MD Signed By: Shayy Gaytan MD Signed Date/Time: 11/04/22 1:55 pm Transcribed By: GARO Transcribed Date/Time: 11/04/22 1:40 pm Patient Care team information Care Team Personnel Name: Lashae Crowe MD, V Position: [facility] Primary Care Physician Member Role: PCP Address: Address: [address] [place] [address] Name: Heike Esposito Position: [facility] Associate Professional Member Role: ED Physician Convertible Power Shovel Operator Address: Address: [address] [place] [address] Name: Brina Wilde Position: [facility] ED RN W/OE and Tasks Member Role: Patient Care Provider Name: Joan Del Rosario Position: [facility] ED TA [facility] Member Role: Business Excellence Manager Name: Beto Henry MD Position: [facility] ED Medicine MD Member Role: Admitting Physician Address: Address: [address] [place] [address] Care Team Related Persons Name: JUSTIN PEPPER Address: home [address] [place] [id number] Name: TODD KAIN Address: [address] Address: home [address] [address] [place] Name: TARSHA DANGELO Address: [place] [address] [address]
--- OUTSIDE RECORDS SUMMARY | 2024-01-28 06:12 | XMS_ITS | Continuity of Care Document ---
Author Organization [facility] Martinarod Bates [employer] [facility] Address [address] [place] [address], [address] [place] [address]- Care Team Providers Care City Marshal Name Role Phone Name [place] HUYNH Primary Care Physician Encounter [facility] [place] ACCT R [id number] Date(s): 03/04/22 - 03/11/22 [facility] [employer] [facility] [address] [facility], [address] [place] [address]- Attending Physician: Renee Short MD Referring Physician: Diego Pope MD Allergies, Adverse Reactions, [...] 9:42:00 EST, Route to Pharmacy Electronically, [facility]/pharmacy #[id number], Partial fill upon patient request if the [...] oldest [Reference Range]: 1 Height 155 cm (03/04/22 10:26 AM) Weight 109.1 kg (03/04/22 10:26 AM) Body Mass Index [18.5-24.99] 45.41 *>HHI* (03/04/22 10:26 AM) Blood Pressure [90-138/55-84 mm Hg] 125/ 74mm Hg (03/04/22 10:26 AM) Blood pressure sites Arm, right (03/04/22 10:26 AM) Weight Obtained Via Standing scale (03/04/22 10:26 AM) Social History Social History Type Response Smoking Status Never (less than 100 in lifetime) entered on: 08/27/21 Sex
--- OUTSIDE RECORDS SUMMARY | 2024-01-28 06:12 | XMS_ITS | Continuity of Care Document ---
Author Organization [facility] Address [address] [place] [address]- Care Team Providers Care Turpentine Distiller Name Role Phone Lashae Crowe MD, V Primary Care Physician [phone] Encounter [facility] [place] Date(s): 11/18/22 - 12/18/22 [facility] [address] [place], [place] [address] Allergies, Adverse Reactions, Alerts Substance Reaction Severity [...] Maintenance, 09/15/22 8:02:00 EST, [facility] [id number], 30, TAKE 1 PUFF BY MOUTH 4 [...] 1 Refills,Maintenance, 11/18/22 12:22:00 EDT, Capsule, [id number], Partial fill upon patient request if the prescription is for a schedule II opioid drug... Start Date: 11/18/22 Status: Ordered Plus Low Iron oral tablet 1 tablet, By Mouth, Daily, # 90 tablet, 1 Refills, Maintenance, 10/07/22 7:38:00 EST, [id number], 90, TAKE 1 TABLET BY MOUTH EVERY [...] Personnel Name: Sebastien HUYNH, Lashae Lozano Position: [facility] Primary Care Physician Member Role: PCP Address: Address: [address] [place] [address]- Care Team Related Persons Name: JUSTIN PEPPER Address: home [address] [address] Name: KAIN BROOKS Address: [id number] Address: home [address] [address] Name: TARSHA DANGELO Address: home [address] [address]
--- OUTSIDE RECORDS SUMMARY | 2024-01-28 06:12 | XMS_ITS | Continuity of Care Document ---
Author Organization [facility] [employer] Address [address] [place] [address], [address] [place] [address]- Care Team Providers Care Nuclear Power Plant Engineer Name Role Phone Name [place] HUYNH Primary Care Physician Encounter [facility] Date(s): 11/05/21 - 11/12/21 [facility]od [employer] [facility] [address] [facility], [address] [place] [address]- Attending Physician: Jose HUYNH [OB], Dariana Pena [...] 08/29/21 9:42:00 EST, Route to Pharmacy Electronically, [facility]/pharmacy #[id number], Partial fill upon [...] tablet, 1 Refills, Maintenance, 11/06/20 16:46:00 EST, [facility]/pharmacy #[id number], Partial fill upon [...] Replace Required Details, Route to Pharmacy Electronically, [facility]/pharmacy #[id number], Partial fill upo... Start Date: 11/22/20 Status: [...] A DAY, # 120 capsule, 1 Refills, [facility] STORE [id number], 155, cm, 01/02/21 9:19:00 EDT, Height Start Date: 08/13/21 Status: Ordered Provera 10 mg oral tablet 10 mg, 1, tablet, By Mouth, Daily, start tomorrow if test is negative, # 10 tablet, Refills 0, Tot. Refills 0, Maintenance, 12/13/20 13:05:00 EDT, Route to Pharmacy Electronically, [facility]/pharmacy #[id number], Partial fill upon [...] Refills, Maintenance, 11/01/21 8:47:00 EST, Capsule, [id number], Partial fill upon patient request if the [...]
--- OUTSIDE RECORDS SUMMARY | 2024-01-28 06:12 | XMS_ITS | Continuity of Care Document ---
Author Organization [facility] [facility] Address [address] [place] [address], 4t [place] [address]- Care Team Providers Care Power Transformer Repair Supervisor Name Role Phone Name [place] HUYNH Primary Care Physician [id number]): [facility]25[facility] - 10/02/21 [facility] [address] [facility], [address]th [address] [place], [place] [address] Attending Physician: Jose HUYNH [OB], Dariana Pena Referring Physician: Cara Schmitz MD Allergies, Adverse Reactions, [...] 08/29/21 9:42:00 EST, Route to Pharmacy Electronically, [facility]/pharmacy #[id number], Partial fill upon patient request if [...] tablet, 1 Refills, Maintenance, 11/06/20 16:46:00 EST, [facility]/pharmacy #[id number], Partial fill upon patient request if [...] Replace Required Details, Route to Pharmacy Electronically, [facility]/pharmacy #[id number], Partial fill upo... Start Date: 11/22/20 Status: [...] # 120 capsule, 1 Refills, [facility], 155, cm, 01/02/21 9:19:00 EDT, Height Start Date: 08/13/21 Status: Ordered Provera 10 mg oral tablet 10 mg, 1, tablet, By Mouth, Daily, start tomorrow if test is negative, # 10 tablet, Refills 0, Tot. Refills 0, Maintenance, 12/13/20 13:05:00 EDT, Route to Pharmacy Electronically, [facility]/pharmacy #[id number], Partial fill upon patient request if the... [...] oldest [Reference Range]: 1 Height 155 cm (09/25/21 10:47 AM) Weight 104.78 kg (09/25/21 10:47 AM) Body Mass Index [18.5-24.99] 43.61 *>HHI* (09/25/21 10:47 AM) Blood Pressure [90-138/55-84 mm Hg] 123/ 74mm Hg (09/25/21 10:47 AM) Blood pressure sites Arm, left (09/25/21 10:47 AM) Weight Obtained Via Standing scale (09/25/21 10:47 AM) Social History Social History Type Response Smoking Status Never (less than 100 in lifetime) entered on: 08/27/21 Sex
--- OUTSIDE RECORDS SUMMARY | 2024-01-28 06:12 | XMS_ITS | Continuity of Care Document ---
Author Organization [facility] Address Unknown Care Team Providers Care Abstract Writer Name Role Phone Name [place] HUYNH Primary Care Physician [place] [facility] [place] 07/30/21 - 08/06/21 [facility] Rep[facility] Attending Physician: Kimberley Modi MD Referring Physician: Tressa Graves MD Allergies, [...] tablet, 1 Refills, Maintenance, 11/06/20 16:46:00 EST, [facility]/pharmacy #[id number], Partial fill upon patient request if [...] Replace Required Details, Route to Pharmacy Electronically, [facility]/pharmacy #[id number], Partial fill upo... Start Date: 11/22/20 [...] capsule, 1 Refills, Maintenance, 07/22/21 16:11:00 EST, [facility]/pharmacy #[id number], Partial fill upon patient request if the prescription is for a schedule II opioiddrug., 155, cm, 01/02/21 9:19:00 EDT, Height Start Date: 07/22/21 Status: Ordered Provera 10 mg oral tablet 10 mg, 1, tablet, By Mouth, Daily, start tomorrow if test is negative, # 10 tablet, Refills 0, Tot. Refills 0, Maintenance, 12/13/20 13:05:00 EDT, Route to Pharmacy Electronically, [facility]/pharmacy #[id number], Partial fill upon patient request if the... 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
--- OUTSIDE RECORDS SUMMARY | 2024-01-28 06:12 | XMS_ITS | Continuity of Care Document ---
Author Organization [facility] Martinarod Bates [email or web address] [facility] Address [address] [facility], 4t [place] [address]- Care Team Providers Care Cena Name Role Phone Lashae Crowe MD, V Primary Care Physician [phone] Encounter [facility] Date(s): 07/21/22 - 08/20/22 [facility] [email or web address] [facility] [address] [facility], 4th [place] [address]- Allergies, Adverse Reactions, Alerts Substance Reaction Severity [...] Care Physician Member Role: PCP Address: Address: [address] [place] [address]- Care Team Related Persons Name: JUSTIN PEPPER Address: home [address] [address] Name: KAIN BROOKS Address: [address] Address: home [address] [address] Name: TARSHA DANGELO Address: home [address] [address]
--- OUTSIDE RECORDS SUMMARY | 2024-01-28 06:12 | XMS_ITS | Continuity of Care Document ---
Author Organization [facility] Address [address] [facility], 4t [place] [address]- Care Team Providers Care Flatwork Ironer Name Role Phone Name [place] HUYNH Primary Care Physician En[place] [facility] Date(s): 08/23/21 - 09/22/21 [facility] [address] [facility], 4th [place] [address]- Allergies, Adverse Reactions, Alerts Substance Reaction Severity [...] 08/29/21 9:42:00 EST, Route to Pharmacy Electronically, [facility]/pharmacy #[id number], Partial fill upon patient [...] tablet, 1 Refills, Maintenance, 11/06/20 16:46:00 EST, [facility]/pharmacy #[id number], Partial fill upon patient [...] Replace Required Details, Route to Pharmacy Electronically, [facility]/pharmacy #[id number], Partial fill upo... Start Date: 11/22/20 Status: [...] # 120 capsule, 1 [facility]ills, [facility], 155, cm, 01/02/21 9:19:00 EDT, Height Start Date: 08/13/21 Status: Ordered Provera 10 mg oral tablet 10 mg, 1, tablet, By Mouth, Daily, start tomorrow if test is negative, # 10 tablet, Refills 0, Tot. Refills 0, Maintenance, 12/13/20 13:05:00 EDT, Route to Pharmacy Electronically, [facility]/pharmacy #[id number], Partial fill upon patient request if the... [...]
--- OUTSIDE RECORDS SUMMARY | 2024-01-28 06:12 | XMS_ITS | Continuity of Care Document ---
Author Organization [facility] Address [address] [place] [address]- Care Team Providers Care Building Code Administrator Name Role Phone Sebastien HUYNH, Lashae Loznao Primary Care Physician Encounter [facility] Date(s): 12/26/22 - 01/25/23 [facility] [address] [place], [place] [address] Allergies, Adverse Reactions, Alerts Substance Reaction [...] Refills, Maintenance, 09/15/22 8:02:00 EST, [facility] [id number], 30, TAKE 1 PUFF BY MOUTH 4 TIMES A DAY, 154.9, cm, 08/21/22 10:34:00 EST, Height, 96, kg, 04/17/22 14:30:00 EDT, Dry Weight Start Date: 09/15/22 Status: Ordered diclofenac 1% topical gel 1 application, Topically, 4 times a day, PRN Pain , Moderate, # 100 Gm, 1 Refills, Maintenance, 06/03/22 11:10:00 EDT, Gel, [facility]/pharmacy #[id number], Partial fill upon patient request if the prescription is for a schedule II opioid drug., 61, cm, 05/30/22 1... Start Date: 06/03/22 Status: Ordered ibuprofen 600 mg oral tablet 600 mg, 1, tablet, By Mouth, Every 6 hours, PRN, # 40 tablet, Refills 0, Tot. Refills 0, Maintenance, Pain , Mild, 07/18/22 14:31:00 EST, Route to Pharmacy Electronically, [facility]/pharmacy #[id number], Partialfill upon patient request if [...] capsule = 37.5 mg, By Mouth, Daily, 30 each, TAKE 1 CAPSULE BY MOUTH EVERY DAY IN THE MORNING AT LEAST 1 HOUR AFTER MEALS, # 30 capsule, 1 Refills, Acute 02/06/23 12:38:00 EDT, 01/16/23 12:38:00 EDT, Capsule, [facility]/pharmacy #[id number], Partial fill upon pa... Start Date: 01/16/23 Stop Date: 02/06/23 Status: Ordered Plus Low Iron oral tablet 1 tablet, By Mouth, Daily, # 90 tablet, 1 Refills, Maintenance, 10/07/22 7:38:00 EST, [facility], 90, TAKE 1 TABLET BY MOUTH EVERY DAY, 154.9, cm, 09/30/22 16:07:00 EST, Height, 96, kg, 04/17/2214:30:00 EDT, Dry Weight Start Date: 10/07/22 Status: Ordered sertraline 25 mg oral tablet 1 tablet = 25 mg, By Mouth, Daily in AM, # 30 tablet, 3 Refills, Maintenance, 12/31/22 9:46:00 EDT,Tablet, [id number], Partial fill upon patient request [...] Personnel Name: Lashae Crowe MD, V Position: [facility] Primary Care Physician Member Role: PCP Address: Address: [address] [place] [address]- Name: Dee Dee Roberts Position: [facility] Outreach Member Role: Lifetime Consulting Physician Care Team Related Persons Name: JUSTIN PEPPER Address: home [address] Name: KAIN BROOKS Address: [address] Address: home [address] [address] [place] Name: TARSHA DANGELO Address: home [address]
--- OUTSIDE RECORDS SUMMARY | 2024-01-28 06:12 | XMS_ITS | Continuity of Care Document ---
Author Organization [facility] [employer] [facility] Address [address] [facility], 4t [place] [address]- Care Team Providers Care Forestry Consultant Name Role Phone Lashae Crowe MD, V Primary Care Physician Encounter [facility] Date(s): 05/29/22 - 09/26/22 [facility] [employer] [facility] [address] [place], 4th [address] [place], [place] [address] Attending Physician: Not on Staff, Attending MD Referring Physician: Kiara Muro Allergies, Adverse Reactions, Alerts Substance Reaction Severity [...] mL, 3 Refills, Maintenance, 09/15/22 8:02:00 EST, [facility] [id number], 30, TAKE 1 PUFF BY MOUTH 4 TIMES A DAY, 154.9, cm, 08/21/22 10:34:00 EST, Height, 96, kg, 04/17/22 14:30:00 EDT, Dry Weight Start Date: 09/15/22 Status: Ordered diclofenac 1% topical gel 1 application, Topically, 4 times a day, PRN Pain , Moderate, # 100 Gm, 1 Refills, Maintenance, 06/03/22 11:10:00 EDT, Gel, [facility]/pharmacy #[id number], Partial fill upon patient request if the prescription is for a schedule II opioid drug., 61, cm, 05/30/22 1... Start Date: 06/03/22 Status: Ordered ibuprofen 600 mg oral tablet 600 mg, 1, tablet, By Mouth, Every 6 hours, PRN, # 40 tablet, Refills 0, Tot. Refills 0, Maintenance, Pain , Mild, 07/18/22 14:31:00 EST, Route to Pharmacy Electronically, [facility]/pharmacy #[id number], Partialfill upon patient request if [...] Refills, Maintenance, 07/01/22 9:17:00 EDT, Solution, [facility]/pharmacy #[id number], Partial fill upon patient request [...] Care team information Care Team Personnel Name: aLshae Crowe MD, V Position: [facility] Primary Care Physician Member Role: PCP Address: Address: [address] [place] [address]- Care Team Related Persons Name: JUSTIN PEPPER Address: home [address] [address] Name: KAIN BROOKS Address: [address] Address: home [address] [address] [place] Name: TARSHA DANGELO Address: home [address] [address]
--- OUTSIDE RECORDS SUMMARY | 2024-01-28 06:12 | XMS_ITS | Continuity of Care Document ---
Author Organization [facility] Address [address] [facility] [place] [address]- Care Team Providers Care Silo Painter Name Role Phone Lashae Crowe MD, V Primary Care Physician [phone] Encounter 05/20/22 - 05/27/22 [facility] [address] [facility], [address] [place] [address]- Attending Physician: Cara Schmitz MD Admitting Physician: Cara Schmitz MD Referring Physician: Cara Schmitz MD Allergies, Adverse [...] Refills, Maintenance, 05/15/22 9:21:00 EDT, Aerosol, [id number], Partial fill upon patient request if the [...] on: 08/27/21 Sex Care Team Personnel Name: Sebastien HUYNH, Lashae Lozano Address: [address] [place] [address]
--- OUTSIDE RECORDS SUMMARY | 2024-01-28 06:12 | XMS_ITS | Continuity of Care Document ---
Author Organization [facility] Address [address] [place] [address] [address] [place] [address]- Care Team Providers Care Practice Coordinator Name Role Phone Lashae Crowe MD, V Primary Care Physician Encounter [facility] Date(s): 12/18/23 - 01/17/24 [facility] [address] [place] [address] Allergies, Adverse Reactions, Alerts Substance [...] Maintenance, 09/15/22 8:02:00 EST, [facility] [id number], 30, TAKE 1 PUFF BY MOUTH 4 [...] Refills, Maintenance, 10/07/22 7:38:00 EST, [facility], 90, TAKE 1 TABLET BY MOUTH EVERY DAY, 154.9, cm, 09/30/22 16:07:00 EST, Height, 96, kg, 04/17/2214:30:00 EDT, Dry Weight Start Date: 10/07/22 Status: Ordered sertraline 25 mg oral tablet 1 tablet, By Mouth, Daily in AM, # 90 tablet, 1 Refills, Maintenance, 04/27/23 9:08:00 EDT, [facility], 154, cm, 12/19/22 13:01:00 EDT, Height, 108, [...] Personnel Name: Lashae Crowe MD, V Position: [facility] Physician - Primary Care Member Role: PCP Address: Address: [address] [place] [address] Name: Dee Dee Roberts Position: [facility] Outreach Member Role: Lifetime Consulting Physician Care Team Related Persons Name: JUSTIN PEPPER Address: home [address] [address] Name: KAIN BROOKS Address: [address] Address: home [address] [address] [place] Name: TARSHA DANGELO Address: home [address] [address]
--- OUTSIDE RECORDS SUMMARY | 2024-01-28 06:12 | XMS_ITS | Continuity of Care Document ---
Author Organization [facility] Address [address] [facility], 4t [address] [place] [address]- Care Team Providers Care Institutional Aide Name Role Phone Name [place] HUYNH Primary Care Physician [place] [facility] 01[place]28[place]21 - 02/27/21 [facility] [address] [facility], 4th [address] [place] [address]- Allergies, Adverse Reactions, Alerts Substance Reaction Severity [...] tablet, 1 Refills, Maintenance, 11/06/20 16:46:00 EST, [facility]/pharmacy #[id number], Partial fill upon patient request [...] Replace Required Details, Route to Pharmacy Electronically, [facility]/pharmacy #[id number], Partial fill upo... Start Date: [...] 12/13/20 13:05:00 EDT, Route to Pharmacy Electronically, [facility]/pharmacy #[id number], Partial fill upon patient request if the... 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
--- OUTSIDE RECORDS SUMMARY | 2024-01-28 06:12 | XMS_ITS | Continuity of Care Document ---
Author Organization [facility] Address [address] [facility], 4t [address] [place] [address]- Care Team Providers Care Air Traffic Controller Name Role Phone Name [place] HUYNH Primary Care Physician En[facility] Date(s): 04/03/20 - 05/24/20 [facility] [address] [facility], 4th [address] [place] [address]- [facility] Attending Physician: Mary Garcia MD Referring Physician: Janice Torres MD Allergies, Adverse Reactions, Alerts Substance Reaction [...]
--- OUTSIDE RECORDS SUMMARY | 2024-01-28 06:12 | XMS_ITS | Continuity of Care Document ---
Author Organization [facility] Address [address] [place] [address]- Care Team Providers Care Sample Mounter Name Role Phone Lashae Crowe MD, V Primary Care Physician Encounter [facility] Date(s): 01/29/23 - 05/29/[address] [address] Attending Physician: Liliya Wayne DO Admitting Physician: Liliya Wayne DO Referring Physician: Liliya Wayne DO Allergies, Adverse Reactions, Alerts Substance Reaction [...] 3 Refills, Maintenance, 09/15/22 8:02:00 EST, [facility] [id number], 30, TAKE 1 PUFF BY MOUTH 4 TIMES A DAY, 154.9, cm, 08/21/22 10:34:00 EST, Height, 96, kg, 04/17/22 14:30:00 EDT, Dry Weight Start Date: 09/15/22 Status: Ordered diclofenac 1% topical gel 1 application, Topically, 4 times a day, PRN Pain , Moderate, # 100 Gm, 3 Refills, Maintenance, 05/18/23 11:18:00 EDT, Gel, [facility]/pharmacy #[id number], Partial fill upon patient request if the prescription is for a schedule II opioid drug., 154, cm, 12/19/22... Start Date: 05/18/23 Status: Ordered ibuprofen 600 mg oral tablet 600 mg, 1, tablet, By Mouth, Every 6 hours, PRN, # 40 tablet, Refills 0, Tot. Refills 0, Maintenance, Pain , Mild, 07/18/22 14:31:00 EST, Route to Pharmacy Electronically, [facility]/pharmacy #[id number], Partialfill upon patient request if [...] 3 Refills, Maintenance, 05/05/23 12:09:00EDT, Capsule, [facility]/pharmacy #[id number], Partial fill upon patient request if the prescription is for a schedule II opioid drug., 154, cm, 12/19/22 13:01:00 E... Start Date: 05/05/23 Status: Ordered Plus Low Iron oral tablet 1 tablet, By Mouth, Daily, # 90 tablet, 1 Refills, Maintenance, 10/07/22 7:38:00 EST, [facility], 90, TAKE 1 TABLET BY MOUTH EVERY DAY, 154.9, cm, 09/30/22 16:07:00 EST, Height, 96, kg, 04/17/2214:30:00 EDT, Dry Weight Start Date: 10/07/22 Status: Ordered sertraline 25 mg oral tablet 1 tablet, By Mouth, Daily in AM, # 90 tablet, 1 Refills, Maintenance, 04/27/23 9:08:00 EDT, [facility], 154, cm, 12/19/22 13:01:00 EDT, Height, 108, [...] Personnel Name: Lashae Crowe MD, V Position: [facility] Physician - Primary Care Member Role: PCP Address: Address: [address] [place] [address]- Name: Dee Dee Roberts Position: [facility] Outreach Member Role: Lifetime Consulting Physician Care Team Related Persons Name: JUSTIN PEPPER Address: home [address] [place] [address] Name: KAIN BROOKS Address: [address] Address: home [address] [place] [address] [place] Name: TARSHA DANGELO Address: home [address] [place] [address]
--- OUTSIDE RECORDS SUMMARY | 2024-01-28 06:12 | XMS_ITS | Continuity of Care Document ---
Author Organization [facility] Address [address] [place] [address]- Care Team Providers Care Supply Officer Name Role Phone Sebastien HUYNH, Lashae Lozano Primary Care Physician Encounter [facility] Date(s): 12/25/22 - 01/24/23 [facility] [address] [place], [place] [address] Allergies, Adverse Reactions, Alerts Substance Reaction [...] mL, 3 Refills, Maintenance, 09/15/22 8:02:00 EST, [facility] [id number], 30, TAKE 1 PUFF BY MOUTH 4 TIMES A DAY, 154.9, cm, 08/21/22 10:34:00 EST, Height, 96, kg, 04/17/22 14:30:00 EDT, Dry Weight Start Date: 09/15/22 Status: Ordered diclofenac 1% topical gel 1 application, Topically, 4 times a day, PRN Pain , Moderate, # 100 Gm, 1 Refills, Maintenance, 06/03/22 11:10:00 EDT, Gel, [facility]/pharmacy #[id number], Partial fill upon patient request if the prescription is for a schedule II opioid drug., 61, cm, 05/30/22 1... Start Date: 06/03/22 Status: Ordered ibuprofen 600 mg oral tablet 600 mg, 1, tablet, By Mouth, Every 6 hours, PRN, # 40 tablet, Refills 0, Tot. Refills 0, Maintenance, Pain , Mild, 07/18/22 14:31:00 EST, Route to Pharmacy Electronically, [facility]/pharmacy #[id number], Partialfill upon patient request if the [...] 02/06/23 12:38:00 EDT, 01/16/23 12:38:00 EDT, Capsule, [facility]/pharmacy #[id number], Partial fill upon pa... Start Date: 01/16/23 Stop Date: 02/06/23 Status: Ordered Plus Low Iron oral tablet 1 tablet, By Mouth, Daily, # 90 tablet, 1 Refills, Maintenance, 10/07/22 7:38:00 EST, [facility], 90, TAKE 1 TABLET BY MOUTH EVERY [...] Name: Lashae Crowe MD, V Position: [facility] Primary Care Physician Member Role: PCP Address: Address: [address] [place] [address]- Name: Dee Dee Roberts Position: [facility] Outreach Member Role: Lifetime Consulting Physician Care Team Related Persons Name: JUSTIN PEPPER Address: [address] Name: KAIN BROOKS Address: [address] Address: home [address] [address] [place] Name: TARSHA DANGELO Address: home [address]
--- OUTSIDE RECORDS SUMMARY | 2024-01-28 06:12 | XMS_ITS | Continuity of Care Document ---
Author Organization [facility] Martinarod Bates [employer] [facility] Address [address] [place] [address], [address]t [place] [address]- Care Team Providers Care Ammonia Print Operator Name Role Phone Name [place] HUYNH Primary Care Physician [phone] [id number] Date[facility] 12/27/21 - 04/26/22 [facility] [employer] [facility] [address] [facility], [address] [place] [address]- Attending Physician: Diego Pope MD Allergies, Adverse [...] 03/15/22 5:23:00 EDT, Route to Pharmacy Electronically, [facility]/pharmacy #[id number], Partial fill upon patient request if the prescription... Start Date: 03/15/22 Status: Ordered PNV Plus oral tablet 1 tablet, By Mouth, Daily, # 90 tablet, 1 Refills, Maintenance, 10/07/21 16:30:00 EST, [facility]/pharmacy#[id number], Partial fill upon patient request if the prescription is for a schedule II opioid drug., 1 tablet By Mouth Daily, 155, cm, 09/25/21 10:47:00 EST... Start Date: 10/07/21 Status: Ordered Vitamin B-12 500 mcg oral tablet 1 tablet = 500 mcg, By Mouth, Daily, # 90 tablet, 3 Refills, Maintenance, 11/01/21 8:45:00 EST, Tablet, [facility]/pharmacy #[id number], Partial fill upon patient request if the prescription is for a schedule II opioid drug., 155, cm, 10/28/21 11:50:00 EST, Height... Start Date: 11/01/21 Status: Ordered Vitamin D2 2000 intl units oral capsule 1 capsule = 50 mcg, By Mouth, Daily, with food, # 90 capsule, 3 Refills, Maintenance, 11/01/21 8:47:00 EST, Capsule, [facility]/pharmacy #[id number], Partial fill upon [...]
--- OUTSIDE RECORDS SUMMARY | 2024-01-28 06:12 | XMS_ITS | Continuity of Care Document ---
Author Organization [facility] Address [address] [place] [address], 4t [address] [place] [address]- Care Team Providers Care Commodity Supervisor Name Role Phone Name Boston HUYNH Primary Care Physician Encounter [facility] Date(s): 11/07/20 - 12/07/20 [facility] [address] [place] [address], 4th [address] [place], [place] [address] Allergies, Adverse Reactions, Alerts Substance [...] 11/06/20 15:03:00 EST, [facility], [id number], Partial fill upon patient request if the presc... Start Date: 11/06/20 Stop Date: 12/08/20 Status: Ordered ibuprofen 800 mg oral tablet See Instructions, 1 tablet By Mouth 30 minutes prior to procedure, # 5 tablet, Refills 0, Tot. Refills 0, Maintenance, 11/22/20 17:08:00 EDT, Instructions Replace Required Details, Route to Pharmacy Electronically, [facility]/pharmacy #[id number], Partial fill upo... Start Date: 11/22/20 Status: Ordered levothyroxine 150 mcg (0.15 mg) oral tablet 1 tablet = 150 mcg, By Mouth, Daily, 0 Refills, Maintenance, 10/23/20 10:03:00 EST, Partial fill upon patient request if the prescription is for a schedule II opioid drug. Start Date: 10/23/20 Status: Ordered Multivitamin Daily, 0 Refills, Maintenance, 11/27/17 8:05:19 Start Date: 11/27/17 Status: Ordered Multivitamins By Mouth, Daily, 0 Refills, Maintenance, 10/23/20 10:04:00 EST, Partial fill upon patient request if the prescription is for a schedule II opioid drug. Start Date: 10/23/20 Status: Ordered Sronyx 100 mcg-20 mcg oral tablet See Instructions, TAKE 1 ACTIVE TABLET ON FIRST DAY OF PERIOD. TAKE CONTINUOUSLY UNTIL INSTRUCTED TO STOP BY , # 28 tablet, 1 Refills, Maintenance, 12/03/20 8:04:00 EDT, [facility]/pharmacy #[id number], 21, TAKE 1 ACTIVE TABLET ON FIRST DAY OF PERIOD. TAKE GREG... 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
--- OUTSIDE RECORDS SUMMARY | 2024-01-28 06:12 | XMS_ITS | Continuity of Care Document ---
Author Organization [facility]od [facility] Address [address] [place] [address], [address] [place] [address]- Care Team Providers Care Plant Guard Name Role Phone Name [place] HUYNH Primary Care Physician [phone] [facility] [id number] Date(s): 08/27/21 - 09/03/21 [facility] [address] [facility], 4th [place] [address]- Attending Physician: Hilary Mobley MD Referring Physician: Tressa Graves MD Allergies, [...] 08/29/21 9:42:00 EST, Route to Pharmacy Electronically, [facility]/pharmacy #[id number], Partial fill [...] tablet, 1 Refills, Maintenance, 11/06/20 16:46:00 EST, [facility]/pharmacy #[id number], Partial fill [...] Replace Required Details, Route to Pharmacy Electronically, [facility]/pharmacy #[id number], Partial fill upo... Start Date: 11/22/20 Status: [...] # 120 capsule, 1 Refills, [id number], 155, cm, 01/02/21 9:19:00 EDT, Height Start Date: 08/13/21 Status: Ordered Provera 10 mg oral tablet 10 mg, 1, tablet, By Mouth, Daily, start tomorrow if test is negative, # 10 tablet, Refills 0, Tot. Refills 0, Maintenance, 12/13/20 13:05:00 EDT, Route to Pharmacy Electronically, [facility]/pharmacy #[id number], Partial fill upon patient request if the... 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
--- OUTSIDE RECORDS SUMMARY | 2024-01-28 06:12 | XMS_ITS | Continuity of Care Document ---
Author Organization [facility] Address Unknown Care Team Providers Care Linking Machine Operator Name Role Phone Name [place] HUYNH Primary Care Physician [phone] Encounter [facility] Date(s): 03/21/22 - 04/20/22 [facility] Allergies, Adverse Reactions, Alerts Substance Reaction Severity [...] 0 Refills, Maintenance, 03/15/22 5:23:00 EDT, Capsule, [facility]/pharmacy #[id number], Partial [...] 03/15/22 5:23:00 EDT, Route to Pharmacy Electronically, [facility]/pharmacy #[id number], Partial fill [...]
--- OUTSIDE RECORDS SUMMARY | 2024-01-28 06:12 | XMS_ITS | Continuity of Care Document ---
Author Organization [facility] Address [address] [place] [address]- Care Team Providers Care Deployment Manager Name Role Phone Sebastien HUYNH, Lashae Lozano Primary Care Physician [facility]counter [facility] Date(s): 04/28/23 - 05/28/23 [facility] [address] [place], [place] [address] Allergies, Adverse Reactions, Alerts Substance [...] mL, 3 Refills, Maintenance, 09/15/22 8:02:00 EST, [facility] [id number], 30, TAKE 1 PUFF BY MOUTH 4 TIMES A DAY, 154.9, cm, 08/21/22 10:34:00 EST, Height, 96, kg, 04/17/22 14:30:00 EDT, Dry Weight Start Date: 09/15/22 Status: Ordered diclofenac 1% topical gel 1 application, Topically, 4 times a day, PRN Pain , Moderate, # 100 Gm, 3 Refills, Maintenance, 05/18/23 11:18:00 EDT, Gel, [facility]/pharmacy #[id number], Partial fill upon patient request if the prescription is for a schedule II opioid drug., 154, cm, 12/19/22... Start Date: 05/18/23 Status: Ordered ibuprofen 600 mg oral tablet 600 mg, 1, tablet, By Mouth, Every 6 hours, PRN, # 40 tablet, Refills 0, Tot. Refills 0, Maintenance, Pain , Mild, 07/18/22 14:31:00 EST, Route to Pharmacy Electronically, [facility]/pharmacy #[id number], Partialfill upon patient request if [...] capsule, 3 Refills, Maintenance, 05/05/23 12:09:00EDT, Capsule, [facility]/pharmacy #[id number], Partial fill upon patient request if the prescription is for a schedule II opioid drug., 154, cm, 12/19/22 13:01:00 E... Start Date: 05/05/23 Status: Ordered Plus Low Iron oral tablet 1 tablet, By Mouth, Daily, # 90 tablet, 1 Refills, Maintenance, 10/07/22 7:38:00 EST, [id number], 90, TAKE 1 TABLET BY MOUTH EVERY DAY, 154.9, cm, 09/30/22 16:07:00 EST, Height, 96, kg, 04/17/2214:30:00 EDT, Dry Weight Start Date: 10/07/22 Status: Ordered sertraline 25 mg oral tablet 1 tablet, By Mouth, Daily in AM, # 90 tablet, 1 Refills, Maintenance, 04/27/23 9:08:00 EDT, [id number], 154, cm, 12/19/22 13:01:00 EDT, Height, 108, [...] Personnel Name: Lashae Crowe MD, V Position: [facility] Physician - Primary Care Member Role: PCP Address: Address: [address] [place] [address]- Name: Dee Dee Roberts Position: [facility] Outreach Member Role: Lifetime Consulting Physician Care Team Related Persons Name: JUSTIN PEPPER Address: home [address] [address] Name: KAIN BROOKS Address: [address] Address: home [address] [address] [place] Name: TARSHA DANGELO Address: home [address] [address]
--- OUTSIDE RECORDS SUMMARY | 2024-01-28 06:13 | XMS_ITS | Continuity of Care Document ---
Author Organization [facility] Address [address] [place] [address]- Care Team Providers Care Cardiopulmonary Technician And Eeg Tech Name Role Phone Sebastien HUYNH, Lashae Lozano Primary Care Physician Encounter [facility] Date(s): 04/29/22 - 05/29/22 [facility] [address] [place], [place] [address] Allergies, Adverse Reactions, Alerts Substance [...] Refills, Maintenance, 05/15/22 9:21:00 EDT, [facility], [id number], Partial fill upon patient request if the [...] Personnel Name: Sebastien HUYNH, Lashae Lozano Address: [address] [place] [address]
--- OUTSIDE RECORDS SUMMARY | 2024-01-28 06:13 | XMS_ITS | Continuity of Care Document ---
Author Organization [facility] Address [address] [facility], 4t [address] [place] [address]- Care Team Providers Care Oyster Bed Worker Name Role Phone Name [place] HUYNH Primary Care Physician En[facility] [id number] Date(s): 11/30/20 - 12/07/20 [facility] [address] [facility], 4th [address] [place], [place] [address] Attending Physician: Tressa Graves MD Allergies, Adverse [...] tablet, 1 Refills, Maintenance, 11/06/20 16:46:00 EST, [facility]/pharmacy #[id number], Partial fill upon patient request if [...] 11/06/20 15:03:00 EST, Route to Pharmacy Electronically, [facility]/pharmacy #[id number], Partial fill upon patient request if the presc... Start Date: 11/06/20 Stop Date: 12/08/20 Status: Ordered ibuprofen 800 mg oral tablet See Instructions, 1 tablet By Mouth 30 minutes prior to procedure, # 5 tablet, Refills 0, Tot. Refills 0, Maintenance, 11/22/20 17:08:00 EDT, Instructions Replace Required Details, Route to Pharmacy Electronically, [facility]/pharmacy #[id number], Partial fill upo... Start Date: 11/22/20 [...] tablet, 1 Refills, Maintenance, 12/03/20 8:04:00 EDT, [facility]/pharmacy #[id number], 21, TAKE 1 ACTIVE TABLET ON FIRST DAY OF PERIOD. TAKE GREG... 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
--- OUTSIDE RECORDS SUMMARY | 2024-01-28 06:13 | XMS_ITS | Continuity of Care Document ---
Author Organization [facility] Address [address] [place] [address], 4t [address] [place] [address]- Care Team Providers Care Director Dietetics Department Name Role Phone Name Boston HUYNH Primary Care Physician [phone] En[place] [facility] Date(s): 12/13/20 - 12/20/20 [facility] [address] [facility], 4th [address] [place] [address]- Attending Physician: Tressa Graves MD Referring Physician: Name Boston HUYNH Allergies, Adverse Reactions, Alerts Substance Reaction Severity [...] 12/13/20 13:05:00 EDT, Route to Pharmacy Electronically, [facility]/pharmacy #[id number], Partial fill upon patient request if the... Start Date: 12/13/20 Stop Date: 12/23/20 Status: Ordered Problem List Condition Effective Dates Status Health Status Inform ant History of recurrent miscarriages(Confirmed) Active Hypothyroidism, postsurgical(Confirmed) Active Recurrent loss(Confirmed) Active Vital Signs Most recent to oldest [Reference Range]: 1 Height 155 cm (12/13/20 12:47 PM) Pulse Rate [55-90 bpm] 84 bpm (12/13/20 12:47 PM) Blood Pressure [90-138/55-84 mm Hg] 142/ 86mm Hg *H* (12/13/20 12:47 PM) Blood pressure sites Arm, right (12/13/20 12:47 PM) Social History Social History Type Response Smoking Status Never (less than 100 in lifetime) entered on: 07/31/20 Sex
--- OUTSIDE RECORDS SUMMARY | 2024-01-28 06:13 | XMS_ITS | Continuity of Care Document ---
Author Organization [facility] Address [address] [place] [address] [address] [place] [address]- Care Team Providers Care Assistant Offset Press Operator Name Role Phone Sebastien HUYNH, Lashae Lozano Primary Care Physician [phone] Encounter [facility] Date(s): 04/17/22 - 05/17/22 [facility] [address] [place], [place] [address] Attending Physician: Admtr, [id number] Admitting Physician: Admtr, [...] Refills, Maintenance, 05/15/22 9:21:00 EDT, [facility], [id number], Partial fill upon patient request if the prescription is for a schedule II opioid drug., 1 puffs Inhalation 4 times a day, 61, cm, 0... Start Date: 05/15/22 Status: Ordered clindamycin 300 mg oral capsule 2 capsule = 600 mg, By Mouth, Every 6 hours, for 5 days, # 40 capsule, 0 Refills, Acute 05/21/22 8:30:00 EDT, 05/16/22 8:30:00 EDT, Capsule, [facility]/pharmacy #[id number], Partial fill upon patient request if the prescription is for a schedule II opioid drug., 6... Start Date: 05/16/22 Stop Date: 05/21/22 Status: Ordered levothyroxine 175 mcg (0.175 mg) [...] Personnel Name: Lashae Crowe MD, V Address: [address] [place] [address]
--- OUTSIDE RECORDS SUMMARY | 2024-01-28 06:13 | XMS_ITS | Continuity of Care Document ---
Author Organization [facility] Address [address] [place] [address]- Care Team Providers Care Ophthalmology Technician Name Role Phone Lashae Crowe MD, V Primary Care Physician En[place] [facility] Date(s): 09/30/22 - 10/07/22 [facility] [address] [place], [place] [address] Encounter Diagnosis Chronic epigastric pain(Discharge Diagnosis) - 10/01/22 Gallbladder hydrops(Discharge Diagnosis) - 10/01/22 Attending Physician: Lashae Crowe MD, V Allergies, [...] Refills, Maintenance, 09/15/22 8:02:00 EST, [facility] [id number], 30, TAKE 1 PUFF BY MOUTH 4 TIMES A DAY, 154.9, cm, 08/21/22 10:34:00 EST, Height, 96, kg, 04/17/22 14:30:00 EDT, Dry Weight Start Date: 09/15/22 Status: Ordered diclofenac 1% topical gel 1 application, Topically, 4 times a day, PRN Pain , Moderate, # 100 Gm, 1 Refills, Maintenance, 06/03/22 11:10:00 EDT, Gel, [facility]/pharmacy #[id number], Partial fill upon patient request if the prescription is for a schedule II opioid drug., 61, cm, 05/30/22 1... Start Date: 06/03/22 Status: Ordered ibuprofen 600 mg oral tablet 600 mg, 1, tablet, By Mouth, Every 6 hours, PRN, # 40 tablet, Refills 0, Tot. Refills 0, Maintenance, Pain , Mild, 07/18/22 14:31:00 EST, Route to Pharmacy Electronically, [facility]/pharmacy #[id number], Partialfill upon patient request if the [...] Maintenance, 07/01/22 9:17:00 EDT, Solution, [facility]/pharmacy #[id number], Partial fill upon patient request if the prescription is for a schedule IIopioid drug., 154.9, cm, 06/26/22 11:28:00 EDT, Hei... Start Date: 07/01/22 Stop Date: 07/08/22 Status: Ordered Plus Low Iron oral tablet 1 tablet, By Mouth, Daily, # 90 tablet, 1 Refills, Maintenance, 10/07/22 7:38:00 EST, [facility], 90, TAKE 1 TABLET BY MOUTH EVERY [...] Effective Dates Health Status Clinical Service Informant Chronic epigastric pain Discharge Diagnosis 10/01/22 Gallbladder hydrops Discharge Diagnosis 10/01/22 Vital Signs Most recent to oldest [Reference Range]: 1 Height 154.9 cm (09/30/22 4:07 PM) Weight 106.10 kg (09/30/22 4:07 PM) Oxygen Saturation [94-100 %] 99 % (09/30/22 4:07 PM) Pulse Rate [55-90 bpm] 70 bpm (09/30/22 4:07 PM) Body Mass Index [18.5-24.99 kg/m2] 44.22 kg/m2 *>HHI* (09/30/22 4:07 PM) Blood Pressure [90-138/55-84 mm Hg] 108/ 80mm Hg (09/30/22 4:07 PM) Mode of Delivery (Oxygen) Room air (09/30/22 4:07 PM) Blood pressure sites Arm, left (09/30/22 4:07 PM) Social History Social History Type Response Smoking Status Never (less than 100 in lifetime) entered on: 07/31/20 Sex Patient Care team information Care Team Personnel Name: Sebastien HUYNH, Lashae Lozano Position: S Primary Care Physician Member Role: PCP Address: Address: [address] [place] [address]- Care Team Related Persons Name: JUSTIN PEPPER Address: [address] [address] Name: KAIN BROOKS Address: [address] Address: [address] [address] Name: TARSHA DANGELO Address: [address] [address]
--- OUTSIDE RECORDS SUMMARY | 2024-01-28 06:13 | XMS_ITS | Continuity of Care Document ---
Author Organization [facility] Address [address] [place] [address]- Care Team Providers Care Bridal Consultant Name Role Phone Sebastien HUYNH, Lashae Lozano Primary Care Physician [facility]counter [facility] Date(s): 09/25/22 - 10/25/22 [facility] [address] [place], [place] [address] Allergies, Adverse Reactions, Alerts Substance Reaction [...] each, 0 Refills, Maintenance, 10/17/22 11:33:00 EST, [facility]/pharmacy #[id number], Partial fill upon patient request if the prescription is for a schedule II opioid drug., Please dispense 2... Start Date: 10/17/22 Status: Ordered Combivent Respimat 20 mcg-100 mcg/inh inhalation aerosol 1 puffs, Inhalation, 4 times a day, # 4 mL, 3 Refills, Maintenance, 09/15/22 8:02:00 EST, [facility] [id number], 30, TAKE 1 PUFF BY MOUTH 4 TIMES A DAY, 154.9, cm, 08/21/22 10:34:00 EST, Height, 96, kg, 04/17/22 14:30:00 EDT, Dry Weight Start Date: 09/15/22 Status: Ordered diclofenac 1% topical gel 1 application, Topically, 4 times a day, PRN Pain , Moderate, # 100 Gm, 1 Refills, Maintenance, 06/03/22 11:10:00 EDT, Gel, [facility]/pharmacy #[id number], Partial fill upon patient request if the prescription is for a schedule II opioid drug., 61, cm, 05/30/22 1... Start Date: 06/03/22 Status: Ordered ibuprofen 600 mg oral tablet 600 mg, 1, tablet, By Mouth, Every 6 hours, PRN, # 40 tablet, Refills 0, Tot. Refills 0, Maintenance, Pain , Mild, 07/18/22 14:31:00 EST, Route to Pharmacy Electronically, [facility]/pharmacy #[id number], Partialfill upon patient request if [...] Refills, Maintenance, 10/07/22 7:38:00 EST, [id number], 90, TAKE 1 TABLET BY MOUTH EVERY [...] Care Physician Member Role: PCP Address: Address: [address] [place] [address]- Care Team Related Persons Name: JUSTIN PEPPER Address: [address] [address] Name: KAIN BROOKS Address: [address] Address: [address] [address] [place] Name: TARSHA DANGELO Address: home [address] [address]
--- OUTSIDE RECORDS SUMMARY | 2024-01-28 06:13 | XMS_ITS | Continuity of Care Document ---
Author Organization [facility] Address [address] [place] [address], 4t [address] [place] [address]- Care Team Providers Care Risk Management Specialist Name Role Phone Name Boston HUYNH Primary Care Physician [phone] [place] [facility] [place] 11/01/20 - 12/22/20 [facility] [address] [place] [address], 4th [address] [place] [address]- Attending Physician: Tressa Graves MD Referring Physician: [...] 11/06/20 16:46:00 EST, [facility]/pharmacy #[id number], Partial fill [...] to Pharmacy Electronically, [facility]/pharmacy #[id number], Partial fill upon patient request if the... 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
--- OUTSIDE RECORDS SUMMARY | 2024-01-28 06:13 | XMS_ITS | Continuity of Care Document ---
Author Organization [facility] Address [address] [place] [address]- Care Team Providers Care Steeping Press Operator Name Role Phone Sebastien HUYNH, Lashae Lozano Primary Care Physician Encounter [facility] Date(s): 07/16/22 - 08/15/22 [facility] [address] [place], [place] [address] Allergies, Adverse Reactions, Alerts Substance [...] 3 Refills, Maintenance, 05/15/22 9:21:00 EDT, Aerosol, [facility]/pharmacy #[id number], Partial fill upon patient request if the prescription is for a schedule II opioid drug., 1 puffs Inhalation 4 times a day, 61, cm, 0... Start Date: 05/15/22 Status: Ordered diclofenac 1% topical gel 1 application, Topically, 4 times a day, PRN Pain , Moderate, # 100 Gm, 1 Refills, Maintenance, 06/03/22 11:10:00 EDT, Gel, [facility]/pharmacy #[id number], Partial fill upon patient request if the prescription is for a schedule II opioid drug., 61, cm, 05/30/22 1... Start Date: 06/03/22 Status: Ordered ibuprofen 600 mg oral tablet 600 mg, 1, tablet, By Mouth, Every 6 hours, PRN, # 40 tablet, Refills 0, Tot. Refills 0, Maintenance, Pain , Mild, 07/18/22 14:31:00 EST, Route to Pharmacy Electronically, [facility]/pharmacy #[id number], Partialfill upon patient request if [...] 0 Refills, Maintenance, 07/01/22 9:17:00 EDT, Solution, [facility]/pharmacy #[id number], Partial fill upon patient request [...] Personnel Name: Lashae Crowe MD, V Position: [facility] Primary Care Physician Member Role: PCP Address: Address: [address] [place] [address]- Care Team Related Persons Name: JUSTIN PEPPER Address: [address] [address] Name: KAIN BROOKS Address: [address] Address: home [address] [address] Name: TARSHA DANGELO Address: home [address] [address]
--- OUTSIDE RECORDS SUMMARY | 2024-01-28 06:13 | XMS_ITS | Continuity of Care Document ---
Author Organization [facility] e Medicine Address [address], 4t [address] [place] [address]- Care Team Providers Care Voltage Tester Name Role Phone Name [place] HUYNH Primary Care Physician En[place] [facility] [place] Date(s): 10/23/20 - 10/30/20 [facility] Reproductive Medicine [address], 4th [address] [place], [place] [address] Attending Physician: Tressa Graves MD Allergies, Adverse Reactions, Alerts Substance Reaction Severity Status naproxen swollen eyes Moderate Active Bactrim Active Adhesive Bandage Active Vannesa Active Medications clomiPHENE 50 mg oral tablet 100 mg, 2, tablet, By Mouth, Daily, for 5 days, beginning on the 5th day of menstrual cycle, # 10 tablet, Refills 3, Tot. Refills 3, Acute 11/06/20 14:09:00 EST, 10/17/20 14:09:00 EST, Route to Pharmacy Electronically, [facility]/pharmacy #[id number], Partial fill... Start Date: 10/17/20 Stop Date: 11/06/20 Status: Ordered Combivent 103 mcg-18 mcg/inh inhalation aerosol with adapter 2 puffs, Inhalation, 4 times a day, PRN Wheezing/Shortness of Breath, 0 Refills, Maintenance Start Date: 06/16/13 Status: Ordered Lessina 100 mcg-20 mcg oral tablet 1 tablet, By Mouth, Daily, Begin taking 1 ACTIVE Tablet on first day of period continuously, continue taking until instructed to stop by physician, # 28 tablet, 1 Refills, Maintenance, 10/23/20 12:34:00 EST, [facility]/pharmacy #[id number], Partial fill upon patie... Start Date: [...] of recurrent miscarriages(Confirmed) Active Hypothyroidism, postsurgical(Confirmed) Active Vital Signs Most recent to oldest [Reference Range]: 1 Height 155 cm (10/23/20 10:00 AM) Weight 104.8 kg (10/23/20 10:00 AM) Pulse Rate [55-90 bpm] 67 bpm (10/23/20 10:00 AM) Body Mass Index [18.5-24.99] 43.62 *>HHI* (10/23/20 10:00 AM) Blood Pressure [90-138/55-84 mm Hg] 119/ 60mm Hg (10/23/20 10:00 AM) Blood pressure sites Arm, right (10/23/20 10:00 AM) Weight Obtained Via Standing scale (10/23/20 10:00 AM) Social History Social History Type Response Smoking Status Never (less than 100 in lifetime) entered on: 07/31/20 Sex
--- OUTSIDE RECORDS SUMMARY | 2024-01-28 06:13 | XMS_ITS | Continuity of Care Document ---
Author Organization [facility] [employer] Address [address], [address] [place] [address]- Care Team Providers Care Shop Supervisor Name Role Phone Name [place] HUYNH Primary Care Physician Encounter [facility] [place] Date(s): 03/07/22 - 04/12/22 [facility] [employer] [facility] [address], 4th [place] [address]- Attending Physician: Diego Pope MD Admitting Physician: Diego Pope MD Referring Physician: Diego Pope MD Allergies, [...] 0 Refills, Maintenance, 03/15/22 5:23:00 EDT, Capsule, [facility]/pharmacy #[id number], Partial fill upon [...] 03/15/22 5:23:00 EDT, Route to Pharmacy Electronically, [facility]/pharmacy #[id number], Partial fill upon [...]
--- OUTSIDE RECORDS SUMMARY | 2024-01-28 06:13 | XMS_ITS | Continuity of Care Document ---
Author Organization [facility] e Medicine Address Unknown Care Team Providers Care Mechanical Product Engineer Name Role Phone Name [place] HUYNH Primary Care Physician Encounter [facility] [place] Date(s): 08/08/21 - 09/07/21 [facility] Attending Physician: Whitney Cheng Admitting Physician: AdmtrWhitney Referring Physician: AdmtrWhitney Allergies, Adverse Reactions, Alerts Substance Reaction Severity [...] 08/29/21 9:42:00 EST, Route to Pharmacy Electronically, [facility]/pharmacy #[id number], Partial fill upon patient request [...] tablet, 1 Refills, Maintenance, 11/06/20 16:46:00 EST, [facility]/pharmacy #[id number], Partial fill upon patient request [...] Replace Required Details, Route to Pharmacy Electronically, [facility]/pharmacy #[id number], Partial fill upo... Start Date: 11/22/20 Status: [...] # 120 capsule, 1 Refills, [id number], 155, cm, 01/02/21 9:19:00 EDT, Height Start Date: 08/13/21 Status: Ordered Provera 10 mg oral tablet 10 mg, 1, tablet, By Mouth, Daily, start tomorrow if test is negative, # 10 tablet, Refills 0, Tot. Refills 0, Maintenance, 12/13/20 13:05:00 EDT, Route to Pharmacy Electronically, [facility]/pharmacy #[id number], Partial fill upon patient request if the... [...]
--- OUTSIDE RECORDS SUMMARY | 2024-01-28 06:13 | XMS_ITS | Continuity of Care Document ---
Author Organization [facility] e Medicine Address [address], 4t [address] [place] [address]- Care Team Providers Care Quarry Plant Crusher Operator Name Role Phone Name [place] HUYNH Primary Care Physician En[place] [facility] [place] Date(s): 12/26/20 - 01/25/21 [facility] [address], 4th [address] [place] [address]- Allergies, Adverse Reactions, Alerts Substance Reaction Severity [...] tablet, 1 Refills, Maintenance, 11/06/20 16:46:00 EST, [facility]/pharmacy #[id number], Partial fill upon patient request [...] Replace Required Details, Route to Pharmacy Electronically, [facility]/pharmacy #[id number], Partial fill upo... Start Date: [...] 12/13/20 13:05:00 EDT, Route to Pharmacy Electronically, [facility]/pharmacy #[id number], Partial fill upon patient request if the... 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
--- OUTSIDE RECORDS SUMMARY | 2024-01-28 06:13 | XMS_ITS | Continuity of Care Document ---
Author Organization [facility] Address Unknown Care Team Providers Care Triple Valve Mechanic Name Role Phone Name [place] HUYNH Primary Care Physician [phone] [place] [facility] [place] Date(s): 12/12/21 - 01/11/22 [facility] Attending Physician: Whitney Cheng Admitting Physician: AdmtrWhitney [...] Route to Pharmacy Electronically, [facility]/pharmacy #[id number], Partial fill upon patient request if the [...]
--- OUTSIDE RECORDS SUMMARY | 2024-01-28 06:13 | XMS_ITS | Continuity of Care Document ---
Author Organization [facility] [employer] Address [address] [place] [address], [address]t [place] [address]- Care Team Providers Care Occupational Therapist Assistants Name Role Phone Name [place] HUYNH Primary Care Physician En[place] [facility] [place] Date(s): 02/27/22 - 03/06/22 [facility] [employer] [facility] [address], 4th [place] [address]- Attending Physician: Diego Pope MD Allergies, Adverse [...] 08/29/21 9:42:00 EST, Route to Pharmacy Electronically, [facility]/pharmacy #[id number], Partial fill upon patient request if the [...] oldest [Reference Range]: 1 Height 155 cm (02/27/22 10:29 AM) Weight 109.5 kg (02/27/22 10:29 AM) Body Mass Index [18.5-24.99] 45.58 *>HHI* (02/27/22 10:29 AM) Blood Pressure [90-138/55-84 mm Hg] 126/ 79mm Hg (02/27/22 10:29 AM) Blood pressure sites Arm, right (02/27/22 10:29 AM) Weight Obtained Via Standing scale (02/27/22 10:29 AM) Social History Social History Type Response Smoking Status Never (less than 100 in lifetime) entered on: 08/27/21 Sex
--- OUTSIDE RECORDS SUMMARY | 2024-01-28 06:13 | XMS_ITS | Continuity of Care Document ---
Author Organization [facility] Address [address] [place] [address]- Care Team Providers Care Cap Lining Machine Operator Name Role Phone Sebastien HUYNH, Lashae Lozano Primary Care Physician Encounter [facility] Date(s): 04/06/23 - 05/06/23 [facility] [address] [place], [place] [address] Attending Physician: AdmWhitney canseco Admitting Physician: Admtr, [...] 3 Refills, Maintenance, 09/15/22 8:02:00 EST, [facility] [id number], 30, TAKE 1 PUFF BY MOUTH 4 TIMES A DAY, 154.9, cm, 08/21/22 10:34:00 EST, Height, 96, kg, 04/17/22 14:30:00 EDT, Dry Weight Start Date: 09/15/22 Status: Ordered diclofenac 1% topical gel 1 application, Topically, 4 times a day, PRN Pain , Moderate, # 100 Gm, 1 Refills, Maintenance, 06/03/22 11:10:00 EDT, Gel, [facility]/pharmacy #[id number], Partial fill upon patient request if the prescription is for a schedule II opioid drug., 61, cm, 05/30/22 1... Start Date: 06/03/22 Status: Ordered ibuprofen 600 mg oral tablet 600 mg, 1, tablet, By Mouth, Every 6 hours, PRN, # 40 tablet, Refills 0, Tot. Refills 0, Maintenance, Pain , Mild, 07/18/22 14:31:00 EST, Route to Pharmacy Electronically, [facility]/pharmacy #[id number], Partialfill upon patient request if the [...] capsule, 3 Refills, Maintenance, 05/05/23 12:09:00EDT, Capsule, [facility]/pharmacy #[id number], Partial fill upon patient request if the prescription is for a schedule II opioid drug., 154, cm, 12/19/22 13:01:00 E... Start Date: 05/05/23 Status: Ordered Plus Low Iron oral tablet 1 tablet, By Mouth, Daily, # 90 tablet, 1 Refills, Maintenance, 10/07/22 7:38:00 EST, [facility], 90, TAKE 1 TABLET BY MOUTH EVERY DAY, 154.9, cm, 09/30/22 16:07:00 EST, Height, 96, kg, 04/17/2214:30:00 EDT, Dry Weight Start Date: 10/07/22 Status: Ordered sertraline 25 mg oral tablet 1 tablet, By Mouth, Daily in AM, # 90 tablet, 1 Refills, Maintenance, 04/27/23 9:08:00 EDT, [facility], 154, cm, 12/19/22 13:01:00 EDT, Height, 108, [...] 100 in lifetime) entered on: 07/31/20 Sex Cardiology * Event Display: Non BH Cardiovascular Results Authored Date: * Event Display: EKG Non BH Authored Date: Laboratory * Event Display: Non BH Lab Results Authored Date: * Event Display: Non BH Lab Results Authored Date: * Event Display: Non BH Lab Results Authored Date: Radiology * Event Display: CT Scan Neck, Non- BH Authored Date: * Event Display: Ultrasound Neck, Non-BH Authored Date: * Event Display: Ultrasound Neck, Non-BH Authored Date: * Event Display: NM Nuclear Medicine, Non-BH Authored Date: * Event Display: Ultrasound Neck, Non-BH Authored Date: Patient Care team information Care Team Personnel Name: Lashae Crowe MD, V Position: [facility] Physician - Primary Care Member Role: PCP Address: Address: [address] [place] [address]- Name: Dee Dee Roberts Position: [facility] Outreach Member Role: Lifetime Consulting Physician Care Team Related Persons Name: SHANTELLEJUSTIN Address: home [address] [place] [address] Name: KAIN BROOKS Address: [address] Address: [address] [address] Name: TARSHA DANGELO Address: home [address] [place] [address]
--- OUTSIDE RECORDS SUMMARY | 2024-01-28 06:13 | XMS_ITS | Continuity of Care Document ---
Author Organization [facility] [employer] [facility] Address [address], [address] [address]- Care Team Providers Care It Compliance Analyst Name Role Phone Name [place] HUYNH Primary Care Physician [phone] [place] [facility] [place] 12/19/21 - [facility]26[facility] [employer] [facility] [address], 4th [place] [address]- Attending Physician: Niko HUYNH, Diego Donnelly Referring [...] to Pharmacy Electronically, [facility]/pharmacy #[id number], Partial fill upon patient request if the [...] oldest [Reference Range]: 1 Height 155 cm (12/19/21 11:45 AM) Weight 105.87 kg (12/19/21 11:45 AM) Body Mass Index [18.5-24.99] 44.07 *>HHI* (12/19/21 11:45 AM) Blood Pressure [90-138/55-84 mm Hg] 105/ 52mm Hg (12/19/21 11:45 AM) Blood pressure sites Arm, right (12/19/21 11:45 AM) Weight Obtained Via Standing scale (12/19/21 11:45 AM) Social History Social History Type Response Smoking Status Never (less than 100 in lifetime) entered on: 08/27/21 Sex
--- OUTSIDE RECORDS SUMMARY | 2024-01-28 06:13 | XMS_ITS | Continuity of Care Document ---
Author Organization [facility] Address [address] [place] [address]- Care Team Providers Care Counter Former Name Role Phone Lashae Crowe MD, V Primary Care Physician [phone] [place] [facility] [place] Date(s): 04/23/22 - 05/23/22 [facility] [address] [place], [place] [address] Allergies, Adverse Reactions, Alerts Substance Reaction [...] Refills, Maintenance, 05/15/22 9:21:00 EDT, [id number], Partial fill upon patient request if the [...] Personnel Name: Lashae Crowe MD, V Address: [address] [place] [address]
--- OUTSIDE RECORDS SUMMARY | 2024-01-28 06:13 | XMS_ITS | Continuity of Care Document ---
Author Organization [facility] Address [address] [place] [address]- Care Team Providers Care Sleeve Machine Tender Name Role Phone Sebastien HUYNH, Lashae Lozano Primary Care Physician Encounter [facility] Date(s): 07/16/22 - 08/15/22 [facility] [address] [place], [place] [address] Allergies, Adverse Reactions, Alerts Substance Reaction [...] Give n influenza virus vaccine, inactivated 06/02/17 Kalbe rded influenza virus vaccine, inactivated 07/28/16 Kaleb [...] 3 Refills, Maintenance, 05/15/22 9:21:00 EDT, Aerosol, [facility]/pharmacy #[id number], Partial fill upon patient request if the prescription is for a schedule II opioid drug., 1 puffs Inhalation 4 times a day, 61, cm, 0... Start Date: 05/15/22 Status: Ordered diclofenac 1% topical gel 1 application, Topically, 4 times a day, PRN Pain , Moderate, # 100 Gm, 1 Refills, Maintenance, 06/03/22 11:10:00 EDT, Gel, [facility]/pharmacy #[id number], Partial fill upon patient request if the prescription is for a schedule II opioid drug., 61, cm, 05/30/22 1... Start Date: 06/03/22 Status: Ordered ibuprofen 600 mg oral tablet 600 mg, 1, tablet, By Mouth, Every 6 hours, PRN, # 40 tablet, Refills 0, Tot. Refills 0, Maintenance, Pain , Mild, 07/18/22 14:31:00 EST, Route to Pharmacy Electronically, [facility]/pharmacy #[id number], Partialfill upon patient request if [...] 0 Refills, Maintenance, 07/01/22 9:17:00 EDT, Solution, [facility]/pharmacy #[id number], Partial fill upon patient [...] MD, V Position: [facility] Primary Care Physician Member Role: PCP Address: Address: [address] [place] [address]- Care Team Related Persons Name: JUSTIN PEPPER Address: home [address] [address] Name: KAIN BROOKS Address: [address] Address: [address] [address] Name: TARSHA DANGELO Address: [address] [address]
--- OUTSIDE RECORDS SUMMARY | 2024-01-28 06:13 | XMS_ITS | Continuity of Care Document ---
Author Organization [facility] e Medicine Address [address] [place] [address], [address]t [address] [place] [address]- Care Team Providers Care Molder Sweep Name Role Phone Name [place] HUYNH Primary Care Physician [place] [facility] [place] [facility] [id number] Date(s): 06/19/20 - 08/30/20 [facility] Repro[facility] [address] [facility], 4th [address] [place] [address]- Attending Physician: Mary Garcia MD Referring Physician: [...]
--- OUTSIDE RECORDS SUMMARY | 2024-01-28 06:13 | XMS_ITS | Continuity of Care Document ---
Author Organization [facility] [employer] Bates [employer] [facility] Address [address] [place] [address], [address] [address]- Care Team Providers Care Sewer Bricklayer Name Role Phone Name [place] HUYNH Primary Care Physician [place] [facility] [place]01[place]21 - 12/01/21 [facility] [email or web address] [facility] [address] [facility], 4th [place] [address]- Allergies, Adverse Reactions, Alerts Substance Reaction Severity [...] 08/29/21 9:42:00 EST, Route to Pharmacy Electronically, [facility]/pharmacy #[id number], Partial fill upon patient request if the [...] tablet, 1 Refills, Maintenance, 11/06/20 16:46:00 EST, [facility]/pharmacy #[id number], Partial fill [...] Replace Required Details, Route to Pharmacy Electronically, [facility]/pharmacy #[id number], Partial fill upo... Start [...] tablet, 1 Refills, Maintenance, 10/07/21 16:30:00 EST, [facility]/pharmacy#[id number], Partial fill upon patient request [...] A DAY, # 120 capsule, 1 Refills, [facility], 155, cm, 01/02/21 9:19:00 EDT, Height Start Date: 08/13/21 Status: Ordered Provera 10 mg oral tablet 10 mg, 1, tablet, By Mouth, Daily, start tomorrow if test is negative, # 10 tablet, Refills 0, Tot. Refills 0, Maintenance, 12/13/20 13:05:00 EDT, [facility], [id number], Partial [...]
--- OUTSIDE RECORDS SUMMARY | 2024-01-28 06:13 | XMS_ITS | Continuity of Care Document ---
Author Organization [facility] [employer] [facility] Address [address] [place] [address], [address] [place] [address]- Care Team Providers Care Clinic Director Name Role Phone Name [place] HUYNH Primary Care Physician [place] [facility] [id number] Date(s): 01/30/22 - 02/06/22 [facility] [facility] [address] [facility], [address] [place] [address]- Attending Physician: Diego Pope MD Allergies, Adverse [...] Route to Pharmacy Electronically, [facility]/pharmacy #[id number], Partial fill upon patient request if the [...] oldest [Reference Range]: 1 Height 155 cm (01/30/22 11:20 AM) Weight 105.75 kg (01/30/22 11:20 AM) Body Mass Index [18.5-24.99] 44.02 *>HHI* (01/30/22 11:20 AM) Blood Pressure [90-138/55-84 mm Hg] 109/ 59mm Hg (01/30/22 11:20 AM) Blood pressure sites Arm, right (01/30/22 11:20 AM) Weight Obtained Via Standing scale (01/30/22 11:20 AM) Social History Social History Type Response Smoking Status Never (less than 100 in lifetime) entered on: 08/27/21 Sex
--- OUTSIDE RECORDS SUMMARY | 2024-01-28 06:13 | XMS_ITS | Continuity of Care Document ---
Author Organization [facility] ter Address [address] [place] [address]- Care Team Providers Care Electronics Assembler Name Role Phone Name [place] HUYNH Primary Care Physician [phone] [place] [facility] [place] 03/17/22 - 03/18/[address] [address] Discharge Disposition: A-D/C Home Attending Physician: Diego Pope MD Admitting Physician: [...] Refills, Maintenance, 03/15/22 5:23:00 EDT, Capsule, [facility]/pharmacy #[id number], Partial fill upon patient request [...] 5:23:00 EDT, Route to Pharmacy Electronically, [facility]/pharmacy #[id number], Partial fill upon patient request [...] oldest [Reference Range]: 1 2 3 Height 61 cm (03/18/22 1:30 AM) Weight 109.1 kg (03/18/22 12:58 AM) Oxygen Saturation [94-100 %] 100 % (03/18/22 2:18 AM) 100 % (03/18/22 2:09 AM) 92 % *L* (03/18/22 1:47 AM) Blood Pressure [90-138/55-84 mm Hg] 124/69mm Hg (03/18/22 2:18 AM) 117/76mm Hg (03/18/22 2:09 AM) 121/81mm Hg (03/18/22 1:47 AM) Temperature [96.8-100.4 DegF] 97.8 DegF (03/18/22 1:08 AM) Blood pressure sites Arm, left (03/18/22 1:08 AM) Temperature Route Oral (03/18/22 1:08 AM) Dry Weight 109.1 kg (03/18/22 12:58 AM) Weight Obtained Via Standing scale (03/18/22 12:58 AM) Social History Social History Type Response Smoking Status Never (less than 100 in lifetime) entered on: 08/27/21 Sex
--- OUTSIDE RECORDS SUMMARY | 2024-01-28 06:13 | XMS_ITS | Continuity of Care Document ---
Author Organization [facility] Address [address] [place] [address]- Care Team Providers Care Line Supply Name Role Phone Sebastien HUYNH, Lashae Lozano Primary Care Physician Encounter [facility] [place] Date(s): 05/05/23 - 06/04/23 [facility] [address] [place] [address]- Allergies, Adverse Reactions, Alerts Substance Reaction Severity [...] mL, 3 Refills, Maintenance, 09/15/22 8:02:00 EST, [facility] [id number], 30, TAKE 1 PUFF BY MOUTH 4 TIMES A DAY, 154.9, cm, 08/21/22 10:34:00 EST, Height, 96, kg, 04/17/22 14:30:00 EDT, Dry Weight Start Date: 09/15/22 Status: Ordered diclofenac 1% topical gel 1 application, Topically, 4 times a day, PRN Pain , Moderate, # 100 Gm, 3 Refills, Maintenance, 05/18/23 11:18:00 EDT, Gel, [facility]/pharmacy #[id number], Partial fill upon patient request if the prescription is for a schedule II opioid drug., 154, cm, 12/19/22... Start Date: 05/18/23 Status: Ordered ibuprofen 600 mg oral tablet 600 mg, 1, tablet, By Mouth, Every 6 hours, PRN, # 40 tablet, Refills 0, Tot. Refills 0, Maintenance, Pain , Mild, 07/18/22 14:31:00 EST, Route to Pharmacy Electronically, [facility]/pharmacy #[id number], Partialfill upon patient request [...] capsule, 3 Refills, Maintenance, 05/05/23 12:09:00EDT, Capsule, [facility]/pharmacy #[id number], Partial fill upon patient request if the prescription is for a schedule II opioid drug., 154, cm, 12/19/22 13:01:00 E... Start Date: 05/05/23 Status: Ordered Plus Low Iron oral tablet 1 tablet, By Mouth, Daily, # 90 tablet, 1 Refills, Maintenance, 10/07/22 7:38:00 EST, [facility], 90, TAKE 1 TABLET BY MOUTH EVERY DAY, 154.9, cm, 09/30/22 16:07:00 EST, Height, 96, kg, 04/17/2214:30:00 EDT, Dry Weight Start Date: 10/07/22 Status: Ordered sertraline 25 mg oral tablet 1 tablet, By Mouth, Daily in AM, # 90 tablet, 1 Refills, Maintenance, 04/27/23 9:08:00 EDT, [facility], 154, cm, 12/19/22 13:01:00 EDT, Height, 108, [...] Name: Lashae Crowe MD, V Position: [facility] Physician - Primary Care Member Role: PCP Address: Address: [address] [place] [address] Name: Dee Dee Roberts Position: [facility] Outreach Member Role: Lifetime Consulting Physician Care Team Related Persons Name: SHANTELLE JUSTIN Address: home [address] [address] Name: KAIN BROOKS Address: [address] Address: home [address] [address] [place] Name: TARSHA DANGELO Address: home [address] [address]
--- OUTSIDE RECORDS SUMMARY | 2024-01-28 06:13 | XMS_ITS | Continuity of Care Document ---
Author Organization [facility] Address [address] [place] [address]- Care Team Providers Care Aircraft Worker Name Role Phone Name [place] HUYNH Primary Care Physician En[place] [facility] [place] Date(s): 01/02/22 - 02/01/[address] [address] Allergies, Adverse Reactions, Alerts [...] Route to Pharmacy Electronically, [facility]/pharmacy #[id number], Partial fill upon patient request if the [...]
--- OUTSIDE RECORDS SUMMARY | 2024-01-28 06:13 | XMS_ITS | Continuity of Care Document ---
Author Organization [facility] [email or web address] Address [address], [address] [place] [address]- Care Team Providers Care Selvage Machine Operator Name Role Phone Name Boston HUYNH Primary Care Physician Encounter [facility] Date(s): 09/11/21 - 09/18/21 [facility] Martinarod [email or web address] [facility] [address], [address] [place] [address]- Attending Physician: Cara Noe MD Referring Physician: [...] 08/29/21 9:42:00 EST, Route to Pharmacy Electronically, [facility]/pharmacy #[id number], Partial fill upon [...] tablet, 1 Refills, Maintenance, 11/06/20 16:46:00 EST, [facility]/pharmacy #[id number], Partial fill upon [...] Replace Required Details, Route to Pharmacy Electronically, [facility]/pharmacy #[id number], Partial fill upo... Start Date: 11/22/20 Status: [...] # 120 capsule, 1 [facility]ills[id number], 155, cm, 01/02/21 9:19:00 EDT, Height Start Date: 08/13/21 Status: Ordered Provera 10 mg oral tablet 10 mg, 1, tablet, By Mouth, Daily, start tomorrow if test is negative, # 10 tablet, Refills 0, Tot. Refills 0, Maintenance, 12/13/20 13:05:00 EDT, Route to Pharmacy Electronically, [facility]/pharmacy #[id number], Partial fill upon patient request if the... [...]
--- OUTSIDE RECORDS SUMMARY | 2024-01-28 06:13 | XMS_ITS | Continuity of Care Document ---
Author Organization [facility] Address [address] [place] [address]- Care Team Providers Care Atm Mechanic Name Role Phone Sebastien HUYNH, Lashae Lozano Primary Care Physician Encounter [facility] Date(s): 07/08/22 - 08/07/22 [facility] [address] [place], [place] [address] Allergies, Adverse Reactions, Alerts Substance Reaction Severity [...] 3 Refills, Maintenance, 05/15/22 9:21:00 EDT, Aerosol, [facility]/pharmacy #[id number], Partial fill upon patient request if the prescription is for a schedule II opioid drug., 1 puffs Inhalation 4 times a day, 61, cm, 0... Start Date: 05/15/22 Status: Ordered diclofenac 1% topical gel 1 application, Topically, 4 times a day, PRN Pain , Moderate, # 100 Gm, 1 Refills, Maintenance, 06/03/22 11:10:00 EDT, Gel, [facility]/pharmacy #[id number], Partial fill upon patient request if the prescription is for a schedule II opioid drug., 61, cm, 05/30/22 1... Start Date: 06/03/22 Status: Ordered ibuprofen 600 mg oral tablet 600 mg, 1, tablet, By Mouth, Every 6 hours, PRN, # 40 tablet, Refills 0, Tot. Refills 0, Maintenance, Pain , Mild, 07/18/22 14:31:00 EST, Route to Pharmacy Electronically, [facility]/pharmacy #[id number], Partialfill upon patient request [...] 0 Refills, Maintenance, 07/01/22 9:17:00 EDT, Solution, [facility]/pharmacy #[id number], Partial fill upon patient [...] Personnel Name: Lashae Crowe MD, V Position: [facility] Primary Care Physician Member Role: PCP Address: Address: [address] [place] [address]- Care Team Related Persons Name: JUSTIN PEPPER Address: home [address] [address] Name: KAIN BROOKS Address: [address] Address: home [address] [address] Name: TARSHA DANGELO Address: home [address] [address]
--- OUTSIDE RECORDS SUMMARY | 2024-01-28 06:13 | XMS_ITS | Continuity of Care Document ---
Author Organization [facility] Address [address] [place] [address]- Care Team Providers Care Levi Maker Name Role Phone Sebastien HUYNH, Lashae Lozano Primary Care Physician En[facility] Date(s): 12/31/22 - 01/07/23 [facility] [address] [place] [address]- Encounter Diagnosis CADE (generalized anxiety disorder)(Discharge Diagnosis) - 12/31/22 Attending Physician: Lashae Crowe MD, V Allergies, [...] 3 Refills, Maintenance, 09/15/22 8:02:00 EST, [facility] [id number], 30, TAKE 1 PUFF BY MOUTH 4 TIMES A DAY, 154.9, cm, 08/21/22 10:34:00 EST, Height, 96, kg, 04/17/22 14:30:00 EDT, Dry Weight Start Date: 09/15/22 Status: Ordered diclofenac 1% topical gel 1 application, Topically, 4 times a day, PRN Pain , Moderate, # 100 Gm, 1 Refills, Maintenance, 06/03/22 11:10:00 EDT, Gel, [facility]/pharmacy #[id number], Partial fill upon patient request if the prescription is for a schedule II opioid drug., 61, cm, 05/30/22 1... Start Date: 06/03/22 Status: Ordered ibuprofen 600 mg oral tablet 600 mg, 1, tablet, By Mouth, Every 6 hours, PRN, # 40 tablet, Refills 0, Tot. Refills 0, Maintenance, Pain , Mild, 07/18/22 14:31:00 EST, Route to Pharmacy Electronically, [facility]/pharmacy #[id number], Partialfill upon patient request if [...] tablet, 1 Refills, Maintenance, 10/07/22 7:38:00 EST, [facility] [id number], 90, TAKE 1 TABLET BY MOUTH EVERY DAY, 154.9, cm, 09/30/22 16:07:00 EST, Height, 96, kg, 04/17/2214:30:00 EDT, Dry Weight Start Date: 1/31/23 Status: Ordered sertraline 25 mg oral tablet 1 tablet = 25 mg, By Mouth, Daily in AM, # 30 tablet, 3 Refills, Maintenance, 12/31/22 9:46:00 EDT,Tablet, [facility]/pharmacy #[id number], Partial fill upon patient request if the [...] pain Confirmed Active Severe obesity Confirmed Active Diagnosis Diagnosis Type Effective Dates Health Status Cl inical Service Informant CADE (generalized anxiety disorder) Discharge Diagnosis 12/31/22 Social History Social History Type Response Smoking Status Never (less than 100 in lifetime) entered on: 07/31/20 Sex Patient Care team information Care Team Personnel Name: Lashae Crowe MD, V Position: [facility] Primary Care Physician Member Role: PCP Address: Address: [address] [place] [address]- Care Team Related Persons Name: JUSTIN PEPPER Address: [address] [address] Name: KAIN BROOKS Address: [address] Address: [address] [address] [place] Name: TARSHA DANGELO Address: [place] [address] [address]
--- OUTSIDE RECORDS SUMMARY | 2024-01-28 06:13 | XMS_ITS | Continuity of Care Document ---
Author Organization [facility] Atil[employer] umesh Address [address] [place] [address] [address] [place] [address]- Care Team Providers Care Celery Cutter Name Role Phone Name [place] HUYNH Primary Care Physician Encounter [facility] Date(s): 12/19/21 - 12/26/21 [facility] [address] [place], [place] [address] Attending Physician: Lisa Urena MD Allergies, Adverse [...] 08/29/21 9:42:00 EST, Route to Pharmacy Electronically, [facility]/pharmacy #[id number], Partial fill upon patient request if the [...] [Reference Range]: 1 Height 155 cm (12/19/21 1:01 PM) Weight 105 kg (12/19/21 1:01 PM) Body Mass Index [18.5-24.99] 43.7 *>HHI* (12/19/21 1:01 PM) Dry Weight 105 kg (12/19/21 1:01 PM) Social History Social History Type Response Smoking Status Never (less than 100 in lifetime) entered on: 08/27/21 Sex
--- OUTSIDE RECORDS SUMMARY | 2024-01-28 06:13 | XMS_ITS | Continuity of Care Document ---
Author Organization [facility] Address [address] [place] [address]- Care Team Providers Care Containers Sales Representative Name Role Phone Lashae Crowe MD, V Primary Care Physician Encounter [facility] Date(s): 04/23/22 - 05/23/22 [facility] [address] [place], [place] [address] Allergies, Adverse Reactions, Alerts [...] Personnel Name: Lashae Crowe MD, V Address: [address] [place] [address]
--- OUTSIDE RECORDS SUMMARY | 2024-01-28 06:13 | XMS_ITS | Continuity of Care Document ---
Author Organization [facility] Address [address] [place] [address] [address] [place] [address]- Care Team Providers Care Milk And Cream Grader Name Role Phone Sebastien HUYNH, Lashae Lozano Primary Care Physician [phone] Encounter [facility] Date(s): 10/14/22 - 10/21/[address] [place] [address]- Attending Physician: Elías Philip MD Referring Physician: Lashae Crowe MD, V Allergies, [...] each, 0 Refills, Maintenance, 10/17/22 11:33:00 EST, [facility]/pharmacy #[id number], Partial fill upon patient request if the prescription is for a schedule II opioid drug., Please dispense 2... Start Date: 10/17/22 Status: Ordered Combivent Respimat 20 mcg-100 mcg/inh inhalation aerosol 1 puffs, Inhalation, 4 times a day, # 4 mL, 3 Refills, Maintenance, 09/15/22 8:02:00 EST, [facility] [id number], 30, TAKE 1 PUFF BY MOUTH 4 [...] Refills, Maintenance, 10/07/22 7:38:00 EST, [facility], 90, TAKE 1 TABLET BY MOUTH EVERY [...] oldest [Reference Range]: 1 Height 154.9 cm (10/14/22 3:38 PM) Weight 108.2 kg (10/14/22 3:38 PM) Oxygen Saturation [94-100 %] 99 % (10/14/22 3:38 PM) Pulse Rate [55-90 bpm] 75 bpm (10/14/22 3:38 PM) Body Mass Index [18.5-24.99 kg/m2] 45.09 kg/m2 *>HHI* (10/14/22 3:38 PM) Blood Pressure [90-138/55-84 mm Hg] 129/ 90mm Hg (10/14/22 3:38 PM) Blood pressure sites Arm, left (10/14/22 3:38 PM) Weight Obtained Via Bed scale (10/14/22 3:38 PM) Social History Social History Type Response Smoking Status Never (less than 100 in lifetime) entered on: 07/31/20 Sex Patient Care team information Care Team Personnel Name: Lashae Crowe MD, V Position: [facility] Primary Care Physician Member Role: PCP Address: Address: [address] [place] [address]- Care Team Related Persons Name: JUSTIN PEPPER Address: home [address] [address] Name: TODD KAIN Address: [address] Address: home [address] [address] Name: TARSHA DANGELO Address: [address] [address]
--- OUTSIDE RECORDS SUMMARY | 2024-01-28 06:14 | XMS_ITS | Continuity of Care Document ---
Author Organization [facility] Address [address] [facility], [address] [place] [address]- Care Team Providers Care Building Pressure Washer Name Role Phone Name [place] HUYNH Primary Care Physician [facility] [place] [place] [id number] Date(s): 10/23/20 - 11/24/20 [facility] [address], [address] [place], [place] [address] Attending Physician: Tressa Graves MD Allergies, Adverse [...] 1 Refills, Maintenance, 11/06/20 16:46:00 EST, [facility]/pharmacy #[id number], Partial fill [...] 11/06/20 15:03:00 EST, Route to Pharmacy Electronically, [facility]/pharmacy #[id number], Partial fill upon patient request if the presc... Start Date: 11/06/20 Stop Date: 12/08/20 Status: Ordered ibuprofen 800 mg oral tablet See Instructions, 1 tablet By Mouth 30 minutes prior to procedure, # 5 tablet, Refills 0, Tot. Refills 0, Maintenance, 11/22/20 17:08:00 EDT, Instructions Replace Required Details, Route to Pharmacy Electronically, [facility]/pharmacy #[id number], Partial fill upo... Start Date: 11/22/20 Status: Ordered Lessina 100 mcg-20 mcg oral tablet 1 tablet, By Mouth, Daily, Begin taking 1 ACTIVE Tablet on first day of period continuously, continue taking until instructed to stop by physician, # 28 tablet, 1 Refills, Maintenance, 10/23/20 12:34:00 EST, [facility]/pharmacy #[id number], Partial fill upon patie... Start Date: [...] 11/06/20 17:03:00 EST, Route to Pharmacy Electronically, [facility]/pharmacy #[id number], Partial fill [...]
--- OUTSIDE RECORDS SUMMARY | 2024-01-28 06:14 | XMS_ITS | Continuity of Care Document ---
Author Organization [facility] [employer] Address [address] [facility], [address] [place] [address]- Care Team Providers Care Playground Monitor Name Role Phone Sebastien HUYNH, Lashae Lozano Primary Care Physician Encounter [facility] Date(s): 05/15/22 - 06/14/22 [facility] [address], [address] [place] [address]- Allergies, Adverse Reactions, Alerts Substance Reaction Severity [...] Refills, Maintenance, 05/15/22 9:21:00 EDT, [id number], Partial fill upon patient request if the prescription is for a schedule II opioid drug., 1 puffs Inhalation 4 times a day, 61, cm, 0... Start Date: 05/15/22 Status: Ordered diclofenac 1% topical gel 1 application, Topically, 4 times a day, PRN Pain , Moderate, # 100 Gm, 1 Refills, Maintenance, 06/03/22 11:10:00 EDT, [facility]/pharmacy #[id number], Partial fill upon patient request if the [...] Date: 05/15/22 Status: Ordered Problem List Condition Confirmation Course [...] Sex Patient Care team information Personnel Name: Lashae Crowe MD, V Address: Address: [address] [place] [address]
--- OUTSIDE RECORDS SUMMARY | 2024-01-28 06:14 | XMS_ITS | Continuity of Care Document ---
Author Organization [facility] Address Unknown Care Team Providers Care Extension Professor Name Role Phone Name [place] HUYNH Primary Care Physician [phone] Encounter [facility] Date(s): 08/08/21 - 08/15/21 [facility] Attending Physician: Tressa Graves MD Allergies, Adverse [...] Refills, Maintenance, 11/06/20 16:46:00 EST, [facility]/pharmacy #[id number], Partial fill upon [...] Required Details, Route to Pharmacy Electronically, [facility]/pharmacy #[id number], Partial fill upo... Start Date: [...] # 120 capsule, 1 Refills, [facility], 155, cm, 01/02/21 9:19:00 EDT, Height Start Date: 08/13/21 Status: Ordered Provera 10 mg oral tablet 10 mg, 1, tablet, By Mouth, Daily, start tomorrow if test is negative, # 10 tablet, Refills 0, Tot. Refills 0, Maintenance, 12/13/20 13:05:00 EDT, Route to Pharmacy Electronically, [facility]/pharmacy #[id number], Partial fill upon patient request if the... 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
--- OUTSIDE RECORDS SUMMARY | 2024-01-28 06:14 | XMS_ITS | Continuity of Care Document ---
Author Organization [facility]od [facility] Address [address] [place] [address], [address] [place] [address]- Care Team Providers Care Snow Blower Name Role Phone Name Boston HUYNH Primary Care Physician [phone] En[facility] [place] [place] AC[facility] R [id number] Date(s): 03/21/22 - 03/28/22 [facility] [employer] [facility] [facility] [address] [facility] [address] [facility], [address]th [place] [address]- Attending Physician: Hilary Mobley MD Referring Physician: Glenis Mckinney MD Allergies, Adverse Reactions, Alerts Substance Reaction [...] 90 tablet, Refills 0, Tot. Refills 0, Linane... Start Date: 03/15/22 Status: Ordered Combivent 103 mcg-18 mcg/inh inhalation aerosol with adapter 2 puffs, Inhalation, 4 times a day, PRN Wheezing/Shortness of Breath, 0 Refills, Maintenance Start Date: 06/16/13 Status: Ordered Compression Stockings See Instructions, # 1 each, Refills 0, Tot. Refills 0, Maintenance, surgical, knee length 20-30 mm Hg, 11/20/21 11:13:00 EDT, Supply, 155, cm, 11/20/21 10:49:00 EDT, Height, 101.2, kg, 12/21/21 15:49:00 EST, Dry Weight Start Date: 11/20/21 Status: Ordered docusate sodium 50 mg oral capsule 2 capsule = 100 mg, By Mouth, 2 times a day, # 120 capsule, 0 Refills, Maintenance, 03/15/22 5:23:00 EDT, Capsule, [facility]/pharmacy #[id number], Partial fill upon patient request if [...] 03/15/22 5:23:00 EDT, Route to Pharmacy Electronically, [facility]/pharmacy #[id number], Partial fill upon patient request if [...]
--- OUTSIDE RECORDS SUMMARY | 2024-01-28 06:14 | XMS_ITS | Continuity of Care Document ---
Author Organization [facility] Address Unknown Care Team Providers Care Instructional Systems Specialist Name Role Phone Name [place] HUYNH Primary Care Physician [phone] [place] [facility] Date(s): 12/04/21 - 01/03/22 [facility] Allergies, Adverse Reactions, Alerts Substance [...] Route to Pharmacy Electronically, [facility]/pharmacy #[id number], Partial fill upon patient request if the [...] opioid drug. Start Date: 10/23/20 Status: Ordered metroNIDAZOLE 500 mg oral tablet 1 tablet = 500 mg, By Mouth, Every 12 hours, for 7 days, # 14 tablet, 0 Refills, Acute 01/09/22 10:32:00 EDT, 01/02/22 10:32:00 EDT, [facility], [id number], Partial fill upon patient request if the prescription is for a schedule II opioid drug., 1... Start Date: 01/02/22 Stop Date: 01/09/22 Status: Ordered PNV Plus oral tablet 1 [...]
--- OUTSIDE RECORDS SUMMARY | 2024-01-28 06:14 | XMS_ITS | Continuity of Care Document ---
Author Organization [facility] umesh Address [address] [place] [address] [address] [place] [address]- Care Team Providers Care Marketing Content Coordinator Name Role Phone Sebastien HUYNH, Lashae Lozano Primary Care Physician Encounter [facility] Date(s): 08/21/22 - 09/20/22 [facility] [address] [place], [place] [address] Attending Physician: Admtr, Ar8 Admitting Physician: Admtr, [...] mL, 3 Refills, Maintenance, 09/15/22 8:02:00 EST, [facility] [id number], 30, TAKE 1 PUFF BY MOUTH 4 TIMES A DAY, 154.9, cm, 08/21/22 10:34:00 EST, Height, 96, kg, 04/17/22 14:30:00 EDT, Dry Weight Start Date: 09/15/22 Status: Ordered diclofenac 1% topical gel 1 application, Topically, 4 times a day, PRN Pain , Moderate, # 100 Gm, 1 Refills, Maintenance, 06/03/22 11:10:00 EDT, Gel, [facility]/pharmacy #[id number], Partial fill upon patient request if the prescription is for a schedule II opioid drug., 61, cm, 05/30/22 1... Start Date: 06/03/22 Status: Ordered ibuprofen 600 mg oral tablet 600 mg, 1, tablet, By Mouth, Every 6 hours, PRN, # 40 tablet, Refills 0, Tot. Refills 0, Maintenance, Pain , Mild, 07/18/22 14:31:00 EST, Route to Pharmacy Electronically, [facility]/pharmacy #[id number], Partialfill upon patient [...] 0 Refills, Maintenance, 07/01/22 9:17:00 EDT, Solution, [facility]/pharmacy #[id number], Partial fill [...] Personnel Name: Sebastien HUYNH, Lashae Lozano Position: [facility] Primary Care Physician Member Role: PCP Address: Address: [address] [place] [address]- Care Team Related Persons Name: JUSTIN PEPPER Address: [address] [address] Name: KAIN BROOKS Address: [address] Address: home [address] [address] Name: TARSHA DANGELO Address: home [address] [address]
--- OUTSIDE RECORDS SUMMARY | 2024-01-28 06:14 | XMS_ITS | Continuity of Care Document ---
Author Organization [facility]ina [facility] Address [address] [facility], [address] [place] [address]- Care Team Providers Care Db2 Developer Name Role Phone Lashae Crowe MD, V Primary Care Physician Encounter [facility] Date(s): 09/22/23 - 12/06/23 [facility] [employer] [facility] [address] [facility], [address]th [place] [address]- Attending Physician: Not on Staff, Attending MD [...] mL, 3 Refills, Maintenance, 09/15/22 8:02:00 EST, [facility] [id number], 30, TAKE 1 PUFF BY MOUTH 4 TIMES A DAY, 154.9, cm, 08/21/22 10:34:00 EST, Height, 96, kg, 04/17/22 14:30:00 EDT, Dry Weight Start Date: 09/15/22 Status: Ordered diclofenac 1% topical gel 1 application, Topically, 4 times a day, PRN Pain , Moderate, # 100 Gm, 3 Refills, Maintenance, 05/18/23 11:18:00 EDT, Gel, [facility]/pharmacy #[id number], Partial fill upon patient request if the prescription is for a schedule II opioid drug., 154, cm, 12/19/22... Start Date: 05/18/23 Status: Ordered ibuprofen 600 mg oral tablet 600 mg, 1, tablet, By Mouth, Every 6 hours, PRN, # 40 tablet, Refills 0, Tot. Refills 0, Maintenance, Pain , Mild, 07/18/22 14:31:00 EST, Route to Pharmacy Electronically, [facility]/pharmacy #[id number], Partialfill upon patient request if [...] capsule, 3 Refills, Maintenance, 05/05/23 12:09:00EDT, Capsule, [facility]/pharmacy #[id number], Partial fill upon patient request if the prescription is for a schedule II opioid drug., 154, cm, 12/19/22 13:01:00 E... Start Date: 05/05/23 Status: Ordered Plus Low Iron oral tablet 1 tablet, By Mouth, Daily, # 90 tablet, 1 Refills, Maintenance, 10/07/22 7:38:00 EST, [facility], 90, TAKE 1 TABLET BY MOUTH EVERY DAY, 154.9, cm, 09/30/22 16:07:00 EST, Height, 96, kg, 04/17/2214:30:00 EDT, Dry Weight Start Date: 10/07/22 Status: Ordered sertraline 25 mg oral tablet 1 tablet, By Mouth, Daily in AM, # 90 tablet, 1 Refills, Maintenance, 04/27/23 9:08:00 EDT, [id number], 154, cm, 12/19/22 13:01:00 EDT, Height, 108, [...] MD, V Position: [facility] Physician - Primary Care Member Role: PCP Address: Address: [address] [place] [address]- Name: Dee Dee Roberts Position: [facility] Outreach Member Role: Lifetime Consulting Physician Care Team Related Persons Name: JUSTIN PEPPER Address: [address] [place] [address] Name: KAIN BROOKS Address: [address] Address: home [address] [place] [address] [place] Name: TARSHA DANGELO Address: [address] [facility] [address] [place] [address]
--- OUTSIDE RECORDS SUMMARY | 2024-01-28 06:14 | XMS_ITS | Continuity of Care Document ---
Author Organization [facility] Jana nDNP [employer] [facility] Address [address] [place] [address], [address] [place] [address]- Care Team Providers Care Asic Verification Engineer Name Role Phone Name [place] HUYNH Primary Care Physician Encounter [facility] Date(s): 12/27/21 - 01/26/22 [facility] Women[facility] [employer] [facility] [address], [address] [place] [address]- Allergies, Adverse Reactions, Alerts Substance Reaction Severity [...] 08/29/21 9:42:00 EST, Route to Pharmacy Electronically, [facility]/pharmacy #[id number], Partial fill upon patient request if the [...]
--- OUTSIDE RECORDS SUMMARY | 2024-01-28 06:14 | XMS_ITS | Continuity of Care Document ---
Author Organization [facility] Address [address] [facility], [address] [place] [address]- Care Team Providers Care Retail Salesperson Name Role Phone Sebastien HUYNH, Lashae Lozano Primary Care Physician [place] [facility] [place]14/22 - 06/13/22 [facility] [address] [facility], [address] [place] [address]- Allergies, Adverse Reactions, Alerts Substance Reaction Severity [...] Refills, Maintenance, 05/15/22 9:21:00 EDT, [facility], [id number], Partial fill upon patient request if the prescription is for a schedule II opioid drug., 1 puffs Inhalation 4 times a day, 61, cm, 0... Start Date: 05/15/22 Status: Ordered diclofenac 1% topical gel 1 application, Topically, 4 times a day, PRN Pain , Moderate, # 100 Gm, 1 Refills, Maintenance, 06/03/22 11:10:00 EDT, David, [facility] #[id number], Partial fill upon patient request if the [...] Name: Sebastien HUYNH, Lashae Lozano Address: Address: [address] [place] [address]
--- OUTSIDE RECORDS SUMMARY | 2024-01-28 06:14 | XMS_ITS | Continuity of Care Document ---
Author Organization [facility] Address [address] [place] [address]- Care Team Providers Care Prototype Carpenter Name Role Phone Sebastien HUYNH, Lashae Lozano Primary Care Physician [phone] [place] [facility] [place] 07/10/23 - 08/15/[address] [address]- Attending Physician: Lisa Urena MD Admitting Physician: [...] mL, 3 Refills, Maintenance, 09/15/22 8:02:00 EST, [facility] [id number], 30, TAKE 1 PUFF BY MOUTH 4 TIMES A DAY, 154.9, cm, 08/21/22 10:34:00 EST, Height, 96, kg, 04/17/22 14:30:00 EDT, Dry Weight Start Date: 09/15/22 Status: Ordered diclofenac 1% topical gel 1 application, Topically, 4 times a day, PRN Pain , Moderate, # 100 Gm, 3 Refills, Maintenance, 05/18/23 11:18:00 EDT, Gel, [facility]/pharmacy #[id number], Partial fill upon patient request if the prescription is for a schedule II opioid drug., 154, cm, 12/19/22... Start Date: 05/18/23 Status: Ordered ibuprofen 600 mg oral tablet 600 mg, 1, tablet, By Mouth, Every 6 hours, PRN, # 40 tablet, Refills 0, Tot. Refills 0, Maintenance, Pain , Mild, 07/18/22 14:31:00 EST, Route to Pharmacy Electronically, [facility]/pharmacy #[id number], Partialfill upon patient request if the [...] capsule, 3 Refills, Maintenance, 05/05/23 12:09:00EDT, Capsule, [facility]/pharmacy #[id number], Partial fill upon patient request if the prescription is for a schedule II opioid drug., 154, cm, 12/19/22 13:01:00 E... Start Date: 05/05/23 Status: Ordered Plus Low Iron oral tablet 1 tablet, By Mouth, Daily, # 90 tablet, 1 Refills, Maintenance, 10/07/22 7:38:00 EST, [facility], 90, TAKE 1 TABLET BY MOUTH EVERY DAY, 154.9, cm, 09/30/22 16:07:00 EST, Height, 96, kg, 04/17/2214:30:00 EDT, Dry Weight Start Date: 10/07/22 Status: Ordered sertraline 25 mg oral tablet 1 tablet, By Mouth, Daily in AM, # 90 tablet, 1 Refills, Maintenance, 04/27/23 9:08:00 EDT, [facility], 154, cm, 12/19/22 13:01:00 EDT, Height, 108, [...] Personnel Name: Lashae Crowe MD, V Position: [facility] Physician - Primary Care Member Role: PCP Address: Address: [address] [place] [address]- Name: Dee Dee Roberts Position: [facility] Outreach Member Role: Lifetime Consulting Physician Care Team Related Persons Name: JUSTIN PEPPER Address: [address] [address] Name: TODD KAIN Address: [address] Address: [address] [address] [place] Name: TARSHA DANGELO Address: [address]
--- OUTSIDE RECORDS SUMMARY | 2024-01-28 06:14 | XMS_ITS | Continuity of Care Document ---
Author Organization [facility] Address [address] [place] [address]- Care Team Providers Care Wildlife Veterinarian Name Role Phone Name [place] HUYNH Primary Care Physician [phone] [place] [facility] [place] 12/16/21 - 01/15/[address] [address]- Allergies, Adverse Reactions, Alerts Substance Reaction Severity [...] 08/29/21 9:42:00 EST, Route to Pharmacy Electronically, [facility]/pharmacy #[id number], Partial fill upon patient request if the [...]
--- OUTSIDE RECORDS SUMMARY | 2024-01-28 06:14 | XMS_ITS | Continuity of Care Document ---
Author Organization [facility] Address [address] [place] [address]- Care Team Providers Care Patch Driller Name Role Phone Sebastien HUYNH, Lashae Lozano Primary Care Physician Encounter [facility] Date(s): 04/28/23 - 05/28/23 [facility] [address] [place], [place] [address] Allergies, Adverse Reactions, Alerts Substance Reaction [...] 3 Refills, Maintenance, 09/15/22 8:02:00 EST, [facility] [id number], 30, TAKE 1 PUFF BY MOUTH 4 TIMES A DAY, 154.9, cm, 08/21/22 10:34:00 EST, Height, 96, kg, 04/17/22 14:30:00 EDT, Dry Weight Start Date: 09/15/22 Status: Ordered diclofenac 1% topical gel 1 application, Topically, 4 times a day, PRN Pain , Moderate, # 100 Gm, 3 Refills, Maintenance, 05/18/23 11:18:00 EDT, Gel, [facility]/pharmacy #[id number], Partial fill upon patient request if the prescription is for a schedule II opioid drug., 154, cm, 12/19/22... Start Date: 05/18/23 Status: Ordered ibuprofen 600 mg oral tablet 600 mg, 1, tablet, By Mouth, Every 6 hours, PRN, # 40 tablet, Refills 0, Tot. Refills 0, Maintenance, Pain , Mild, 07/18/22 14:31:00 EST, Route to Pharmacy Electronically, [facility]/pharmacy #[id number], Partialfill upon patient request if [...] 3 Refills, Maintenance, 05/05/23 12:09:00EDT, Capsule, [facility]/pharmacy #[id number], Partial fill upon patient request if the prescription is for a schedule II opioid drug., 154, cm, 12/19/22 13:01:00 E... Start Date: 05/05/23 Status: Ordered Plus Low Iron oral tablet 1 tablet, By Mouth, Daily, # 90 tablet, 1 Refills, Maintenance, 10/07/22 7:38:00 EST, [facility], 90, TAKE 1 TABLET BY MOUTH EVERY DAY, 154.9, cm, 09/30/22 16:07:00 EST, Height, 96, kg, 04/17/2214:30:00 EDT, Dry Weight Start Date: 10/07/22 Status: Ordered sertraline 25 mg oral tablet 1 tablet, By Mouth, Daily in AM, # 90 tablet, 1 Refills, Maintenance, 04/27/23 9:08:00 EDT, [facility], 154, cm, 12/19/22 13:01:00 EDT, Height, 108, [...] MD, V Position: [facility] Physician - Primary Care Member Role: PCP Address: Address: [address] [place] [address]- Name: Dee Dee Roberts Position: [facility] Outreach Member Role: Lifetime Consulting Physician Care Team Related Persons Name: JUSTIN PEPPER Address: [address] [address] Name: KAIN BROOKS Address: [address] Address: [address] [address] [place] Name: TARSHA DANGELO Address: home [address] [address]
--- OUTSIDE RECORDS SUMMARY | 2024-01-28 06:14 | XMS_ITS | Continuity of Care Document ---
Author Organization [facility] Address [address] [place] [address]- Care Team Providers Care Radiology Manager Name Role Phone Lashae Crowe MD, V Primary Care Physician [phone] Encounter [facility] [place] Date(s): 06/03/22 - 07/03/22 [facility] [address] [place], [place] [address] Allergies, Adverse Reactions, [...] 0 Refills, Maintenance, 07/01/22 9:17:00 EDT, Solution, [facility]/pharmacy #[id number], Partial fill upon patient [...] Name: Lashae Crowe MD, V Address: Address: [address] [place] [address]
--- OUTSIDE RECORDS SUMMARY | 2024-01-28 06:14 | XMS_ITS | Continuity of Care Document ---
Author Organization [facility] ter Address [address] [place] [address]- Care Team Providers Care Pasting Machine Offbearer Name Role Phone Name [place] HUYNH Primary Care Physician [place] [facility] [place] 03/11/22 - 03/15/[address] [address] Discharge Disposition: A-D/C Home Attending Physician: Jose HUYNH [OB], Dariana Pena Admitting Physician: Jose HUYNH [OB], Dariana Pena Referring Physician: Jose HUYNH [OB], Dariana Pena [...] 0, Lianne... Start Date: 03/15/22 Status: Ordered Acetaminophen Tablet 650 mg, Tablet, By Mouth, (1-3), may give 325mg per patient preference and re- dose with 325mg within 4 hours, if needed. Patient should only receive a total of 650mg of Acetaminophen every 4 hours., 03/15/22 12:00:00 EDT Start Date: 03/15/22 Stop Date: 03/15/22 Status: Completed Combivent 103 mcg-18 mcg/inh inhalation aerosol with [...] Refills, Maintenance, 03/15/22 5:23:00 EDT, Capsule, [facility]/pharmacy #[id number], Partial fill upon patient request if the [...] Tot. Refills... Start Date: 03/15/22 Status: Ordered Ibuprofen Tablet 800 mg, Tablet, By Mouth, (4-6), may give 400mg per patient preference and re- dose with 400mg within 8 hours, if needed. Patient should only receive a total of 800mg of Ibuprofen every 8 hours., 03/15/22 12:00:00 EDT Start Date: 03/15/22 Stop Date: 03/15/22 Status: Completed levothyroxine 150 mcg (0.15 mg) oral tablet [...] 5:23:00 EDT, Route to Pharmacy Electronically, [facility]/pharmacy #[id number], Partial fill upon patient request if the prescription... 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 Hx of bariatric surgery(Confirmed) Active Hypothyroidism, postsurgical(Confirmed) Active Severe obesity(Confirmed) Active Procedures Procedure Date Related Diagnosis Body Site Status delivery only; 03/13/22 C ompleted Vital Signs Most recent to oldest [Reference Range]: 1 2 3 4 Height 61 cm (03/15/22 8:00 AM) 61 cm (03/15/22 12:06 AM) 61 cm (03/14/22 5:00 PM) Weight 110.3 kg (03/11/22 5:37 PM) 110.8 kg (03/11/22 4:16 PM) Oxygen Saturation [94-100 %] 100 % (03/15/22 8:00 AM) 100 % (03/15/22 12:06 AM) 98 % (03/14/22 5:00 PM) Pulse Rate [55-90 bpm] 77 bpm (03/15/22 8:00 AM) 75 bpm (03/15/22 12:06 AM) 84 bpm (03/14/22 5:00 PM) Body Mass Index [18.5-24.99] 296.43 *>HHI* (03/11/22 5:37 PM) Blood Pressure [90-138/55-84 mm Hg] 135/67mm Hg (03/15/22 8:00 AM) 117/72mm Hg (03/15/22 12:06 AM) 127/67mm Hg (03/14/22 5:00 PM) Respiratory Rate [16-30 br/min] 20 br/min (03/15/22 2:32 PM) 20 br/min (03/15/22 11:30 AM) 20 br/min (03/15/22 11:30 AM) 20 br/min (03/15/22 11:30 AM) Temperature [96.8-100.4 DegF] 98.0 DegF (03/15/22 8:00 AM) 98.2 DegF (03/15/22 12:06 AM) 97.8 DegF (03/14/22 5:00 PM) Mode of Delivery (Oxygen) Room air (03/15/22 8:00 AM) Room air (03/15/22 12:06 AM) Room air (03/14/22 12:00 AM) Blood pressure sites Arm, left (03/15/22 8:00 AM) Arm, left (03/15/22 12:06 AM) Arm, right (03/14/22 12:00 AM) Temperature Route Oral (03/15/22 8:00 AM) Oral (03/15/22 12:06 AM) Oral (03/14/22 5:00 PM) Dry Weight 110.3 kg (03/11/22 5:37 PM) Weight Obtained Via Standing scale (03/11/22 4:16 PM) Social History Social History Type Response Smoking Status Never (less than 100 in lifetime) entered on: 08/27/21 Sex
--- OUTSIDE RECORDS SUMMARY | 2024-01-28 06:14 | XMS_ITS | Continuity of Care Document ---
Author Organization [facility] [facility] Address [address] [facility], [address] [place] [address]- Care Team Providers Care Laborer Road Name Role Phone Name [place] HUYNH Primary Care Physician [place] [facility] [place] 09/20/21 [facility] [employer] [facility] [address] [facility], [address] [place] [address]- Attending Physician: Hilary Mobley MD Referring Physician: Cara Schmitz MD Allergies, [...] [id number], Partial fill upon patient [...] Refills, Maintenance, 11/06/20 16:46:00 EST, [facility]/pharmacy #[id number], Partial fill upon patient [...] Details, Route to Pharmacy Electronically, [facility]/pharmacy #[id number], Partial fill upo... Start Date: 11/22/20 Status: [...] # 120 capsule, 1 Refills, [facility], 155, cm, 01/02/21 9:19:00 EDT, Height Start Date: 08/13/21 Status: Ordered Provera 10 mg oral tablet 10 mg, 1, tablet, By Mouth, Daily, start tomorrow if test is negative, # 10 tablet, Refills 0, Tot. Refills 0, Maintenance, 12/13/20 13:05:00 EDT, Route to Pharmacy Electronically, [facility]/pharmacy #[id number], Partial fill upon patient request if the... [...]
--- OUTSIDE RECORDS SUMMARY | 2024-01-28 06:14 | XMS_ITS | Continuity of Care Document ---
Author Organization [facility] ter Address [address] [place] [address]- Care Team Providers Care Product Safety Tester Name Role Phone Name [place] HUYNH Primary Care Physician Encounter [facility] [place] Date(s): 02/25/22 - 04/19/[address] [address] Attending Physician: Hilary Mobley MD Referring Physician: Diego Pope MD Allergies, [...]
--- OUTSIDE RECORDS SUMMARY | 2024-01-28 06:14 | XMS_ITS | Continuity of Care Document ---
Author Organization [facility] ter Address [address] [place] [address]- Care Team Providers Care Laborer Gold Leaf Name Role Phone Name [place] HUYNH Primary Care Physician En[place] [facility] [place] Date(s): 03/11/22 - 03/11/[address] [address] Discharge Disposition: A-D/C Home Attending Physician: Luther Gamble MD Admitting Physician: Luther Gamble MD Referring Physician: Luther Gamble MD Allergies, Adverse Reactions, Alerts Substance Reaction [...] 9:42:00 EST, Route to Pharmacy Electronically, [facility]/pharmacy #[id number], Partial fill upon patient request if the [...] recent to oldest [Reference Range]: 1 2 Weight 110.3 kg (03/11/22 6:22 AM) Oxygen Saturation [94-100 %] 100 % (03/11/22 7:21 AM) 99 % (03/11/22 6:31 AM) Blood Pressure [90-138/55-84 mm Hg] 134/ 80mm Hg (03/11/22 6:31 AM) Temperature [96.8-100.4 DegF] 98.2 DegF (03/11/22 6:31 AM) Mode of Delivery (Oxygen) Room air (03/11/22 6:31 AM) Temperature Route Oral (03/11/22 6:31 AM) Dry Weight 110.3 kg (03/11/22 6:22 AM) Weight Obtained Via Standing scale (03/11/22 6:22 AM) Social History Social History Type Response Smoking Status Never (less than 100 in lifetime) entered on: 08/27/21 Sex
--- OUTSIDE RECORDS SUMMARY | 2024-01-28 06:14 | XMS_ITS | Continuity of Care Document ---
Author Organization [facility] Bates [employer] Address [address] [place] [address], [address] [place] [address]- Care Team Providers Care Sql Application Developer Name Role Phone Name [place] HUYNH Primary Care Physician [id number] 02/13/22 - 02/20/22 [facility] [employer] [address] [facility], [address] [place] [address]- Attending Physician: Diego Pope MD Allergies, Adverse [...] 08/29/21 9:42:00 EST, Route to Pharmacy Electronically, [facility]/pharmacy #[id number], Partial fill upon patient request if the [...] days, # 14 tablet, 0 Refills, Acute 02/24/22 21:50:00 EDT, 02/17/22 21:50:00 EDT, [facility]t, [id number], Partial fill upon patient request if the prescription is for a schedule II opioid drug., 1... Start Date: 02/17/22 Stop Date: 02/24/22 Status: Ordered PNV Plus oral tablet 1 [...] Refills, Maintenance, 11/01/21 8:47:00 EST, [facility], [id number], Partial fill upon patient request if the [...]
--- OUTSIDE RECORDS SUMMARY | 2024-01-28 06:14 | XMS_ITS | Continuity of Care Document ---
Author Organization [facility] ter Address [address] [place] [address]- Care Team Providers Care Diesel Truck Driver Name Role Phone Name [place] HUYNH Primary Care Physician [phone] [place] [facility] [place]/23/21 - 08/23/[address] [address] Discharge Disposition: A-D/C Home Attending Physician: Diego [...] 1 Refills, Maintenance, 11/06/20 16:46:00 EST, [facility]/pharmacy #[id number], Partial fill upon patient request if [...] A DAY, # 120 capsule, 1 Refills, [facility], 155, cm, 01/02/21 9:19:00 EDT, Height Start Date: 08/13/21 Status: Ordered Provera 10 mg oral tablet 10 mg, 1, tablet, By Mouth, Daily, start tomorrow if test is negative, # 10 tablet, Refills 0, Tot. Refills 0, Maintenance, 12/13/20 13:05:00 EDT, Route to Pharmacy Electronically, [facility]/pharmacy #[id number], Partial fill upon patient request if the... Start Date: 12/13/20 Stop Date: 12/23/20 Status: Ordered Problem List Condition Effective Dates Status Health Status Inform ant History of recurrent miscarriages(Confirmed) Active Hypothyroidism, postsurgical(Confirmed) Active Recurrent loss(Confirmed) Active Vital Signs Most recent to oldest [Reference Range]: 1 Weight 101.2 kg (08/23/21 10:33 AM) Oxygen Saturation [94-100 %] 100 % (08/23/21 10:33 AM) Pulse Rate [55-90 bpm] 72 bpm (08/23/21 10:33 AM) Blood Pressure [90-138/55-84 mm Hg] 138/ 76mm Hg (08/23/21 10:33 AM) Respiratory Rate [16-30 br/min] 18 br/mi n (08/23/21 10:33 AM) Temperature [96.8-100.4 DegF] 98.4 DegF (08/23/21 10:33 AM) Mode of Delivery (Oxygen) Room air (08/23/21 10:33 AM) Blood pressure sites Arm, right 1 (08/23/21 10:33 AM) Temperature Route Oral (08/23/21 10:33 AM) Dry Weight 101.2 kg (08/23/21 10:33 AM) 1Result Comment: right upper arm measured 39.5cm Social History Social History Type Response Smoking Status Never (less than 100 in lifetime) entered on: 07/31/20 Sex
--- OUTSIDE RECORDS SUMMARY | 2024-01-28 06:14 | XMS_ITS | Continuity of Care Document ---
Author Organization [facility] Address Unknown Care Team Providers Care Deposition Operator Name Role Phone Name [place] HUYNH Primary Care Physician [place] [facility] [place] 05/24/21 - 06/23/21 [facility] Allergies, Adverse Reactions, Alerts [...] tablet, 1 Refills, Maintenance, 11/06/20 16:46:00 EST, [facility]/pharmacy #[id number], Partial fill upon patient [...] Route to Pharmacy Electronically, [facility]/pharmacy #[id number], Partial fill upon patient request if the... 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
--- OUTSIDE RECORDS SUMMARY | 2024-01-28 06:14 | XMS_ITS | Continuity of Care Document ---
Author Organization [facility] Address [address] [facility], [address] [place] [address] [place] [address]- Care Team Providers Care Consumer Insight Manager Name Role Phone Name [place] HUYNH Primary Care Physician En[place] [facility] [place] Date(s): 12/31/20 - 01/30/21 [place] [facility] [address] [facility], [address] [place] [address]- Allergies, Adverse Reactions, Alerts Substance Reaction Severity [...] tablet, 1 Refills, Maintenance, 11/06/20 16:46:00 EST, [facility]/pharmacy #[id number], Partial fill [...] Replace Required Details, Route to Pharmacy Electronically, [facility]/pharmacy #[id number], Partial fill upo... [...] 12/13/20 13:05:00 EDT, Route to Pharmacy Electronically, [facility]/pharmacy #[id number], Partial fill upon patient request if the... 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
--- OUTSIDE RECORDS SUMMARY | 2024-01-28 06:15 | XMS_ITS | Continuity of Care Document ---
Author Organization [facility] Address [address] [place] [address]- Care Team Providers Care Cutter Woodwind Reeds Name Role Phone Sebastien HUYNH, Lashae Lozano Primary Care Physician [phone] Encounter [facility] Date(s): 08/14/22 - 09/13/22 [facility] [address] [place], [place] [address] Allergies, Adverse Reactions, Alerts [...] Kaleb rded influenza virus vaccine, inactivated 07/05/14 Klaeb rded influenza virus vaccine, inactivated 07/27/13 Kaleb [...] 3 Refills, Maintenance, 05/15/22 9:21:00 EDT, Aerosol, [facility]/pharmacy #[id number], Partial [...] 0 Refills, Maintenance, 07/01/22 9:17:00 EDT, Solution, [facility]/pharmacy #[id number], Partial [...] Personnel Name: Lashae Crowe MD, V Position: [facility] Primary Care Physician Member Role: PCP Address: Address: [address] [place] [address]- Care Team Related Persons Name: JUSTIN PEPPER Address: home [address] [address] Name: KAIN BROOKS Address: [address] Address: home [address] [address] Name: TARSHA DANGELO Address: home [address] [address]
--- OUTSIDE RECORDS SUMMARY | 2024-01-28 06:15 | XMS_ITS | Continuity of Care Document ---
Author Organization [facility] ry Address [address] [place] [address]- Care Team Providers Care Loom Cleaner Name Role Phone Lashae Crowe MD, V Primary Care Physician [phone] [place] [facility] [place] 08/07/23 [facility] Surgery [address] [place] [address]- Allergies, Adverse Reactions, Alerts Substance Reaction Severity [...] mL, 3 Refills, Maintenance, 09/15/22 8:02:00 EST, [facility] [id number], 30, TAKE 1 PUFF BY MOUTH 4 TIMES A DAY, 154.9, cm, 08/21/22 10:34:00 EST, Height, 96, kg, 04/17/22 14:30:00 EDT, Dry Weight Start Date: 09/15/22 Status: Ordered diclofenac 1% topical gel 1 application, Topically, 4 times a day, PRN Pain , Moderate, # 100 Gm, 3 Refills, Maintenance, 05/18/23 11:18:00 EDT, Gel, [facility]/pharmacy #[id number], Partial fill upon patient request if the prescription is for a schedule II opioid drug., 154, cm, 12/19/22... Start Date: 05/18/23 Status: Ordered ibuprofen 600 mg oral tablet 600 mg, 1, tablet, By Mouth, Every 6 hours, PRN, # 40 tablet, Refills 0, Tot. Refills 0, Maintenance, Pain , Mild, 07/18/22 14:31:00 EST, Route to Pharmacy Electronically, [facility]/pharmacy #[id number], Partialfill upon patient request if [...] capsule, 3 Refills, Maintenance, 05/05/23 12:09:00EDT, Capsule, [facility]/pharmacy #[id number], Partial fill upon patient request if the prescription is for a schedule II opioid drug., 154, cm, 12/19/22 13:01:00 E... Start Date: 05/05/23 Status: Ordered Plus Low Iron oral tablet 1 tablet, By Mouth, Daily, # 90 tablet, 1 Refills, Maintenance, 10/07/22 7:38:00 EST, [facility], 90, TAKE 1 TABLET BY MOUTH EVERY DAY, 154.9, cm, 09/30/22 16:07:00 EST, Height, 96, kg, 04/17/2214:30:00 EDT, Dry Weight Start Date: 10/07/22 Status: Ordered sertraline 25 mg oral tablet 1 tablet, By Mouth, Daily in AM, # 90 tablet, 1 Refills, Maintenance, 04/27/23 9:08:00 EDT, [facility], 154, cm, 12/19/22 13:01:00 EDT, Height, 108, [...] Personnel Name: Lashae Crowe MD, V Position: [facility] Physician - Primary Care Member Role: PCP Address: Address: [address] [place] [address]- Name: Dee Dee Roberts Position: [facility] Outreach Member Role: Lifetime Consulting Physician Care Team Related Persons Name: JUSTIN PEPPER Address: home [address] [address] Name: KAIN BROOKS Address: [address] Address: home [address] [address] [place] Name: TARSHA DANGELO Address: home [address] [address]
--- OUTSIDE RECORDS SUMMARY | 2024-01-28 06:15 | XMS_ITS | Continuity of Care Document ---
Author Organization [facility] Address [address] [place] [address]- Care Team Providers Care Collections Assistant Name Role Phone Name Boston HUYNH Primary Care Physician Encounter [facility] [place] Date(s): 04/02/22 - 05/02/[address] [address] Allergies, Adverse Reactions, Alerts Substance [...] 0 Refills, Maintenance, 03/15/22 5:23:00 EDT, Capsule, [facility]/pharmacy #[id number], Partial fill upon patient request [...] 03/15/22 5:23:00 EDT, Route to [facility], [id number], [...] Team Personnel Name: Boston Ohara MD Address: [address] [place] [address]
--- OUTSIDE RECORDS SUMMARY | 2024-01-28 06:15 | XMS_ITS | Continuity of Care Document ---
Author Organization [facility] Address [address] [place] [address]- Care Team Providers Care [employer] Name Role Phone Lashae Crowe MD, V Primary Care Physician [phone] En[place] [facility] [place](s): 05/30/22 - 06/06/22 [facility] [address] [place], [place] [address] Encounter Diagnosis Bilateral tennis elbow(Discharge Diagnosis) - 05/30/22 Encounter for general health examination(Discharge Diagnosis) - 05/30/22 Attending Physician: Lashae Crowe MD, V Allergies, [...] Refills, Maintenance, 05/15/22 9:21:00 EDT, [facility], [id number], Partial fill upon patient request if the prescription is for a schedule II opioid drug., 1 puffs Inhalation 4 times a day, 61, cm, 0... Start Date: 05/15/22 Status: Ordered diclofenac 1% topical gel 1 application, Topically, 4 times a day, PRN Pain , Moderate, # 100 Gm, 1 Refills, Maintenance, 06/03/22 11:10:00 EDT, Gel, [id number], Partial fill upon patient request if the [...] Effective Dates Health Status Clinical Service Informant Bilateral tennis elbow Discharge Diagnosis 05/30/22 Encounter for general health examination Discharge Diagnosis 05/30/22 Vital Signs Most recent to oldest [Reference Range]: 1 Height 61 cm (05/30/22 12:54 PM) Weight 97.4 kg (05/30/22 12:54 PM) Oxygen Saturation [94-100 %] 98 % (05/30/22 12:54 PM) Pulse Rate [55-90 bpm] 63 bpm (05/30/22 12:54 PM) Body Mass Index [18.5-24.99 kg/m2] 261.7 6 kg/m2 *>HHI* (05/30/22 12:54 PM) Blood Pressure [90-138/55-84 mm Hg] 118/ 72mm Hg (05/30/22 12:54 PM) Respiratory Rate [16-30 br/min] 16 br/mi n (05/30/22 12:54 PM) Temperature [96.8-100.4 DegF] 98.3 DegF (05/30/22 12:54 PM) Mode of Delivery (Oxygen) Room air (05/30/22 12:54 PM) Blood pressure sites Arm, left (05/30/22 12:54 PM) Temperature Route Temporal (05/30/22 12:54 PM) Weight Obtained Via Standing scale (05/30/22 12:54 PM) Social History Social History Type Response Smoking Status Never (less than 100 in lifetime) entered on: 08/27/21 Sex Patient Care team information Personnel Name: Lashae Crowe MD, V Address: Address: [address] [place] [address]
--- OUTSIDE RECORDS SUMMARY | 2024-01-28 06:15 | XMS_ITS | Continuity of Care Document ---
Author Organization [facility] Address [address] [place] [address]- Care Team Providers Care Certified First Assistant Name Role Phone Sebastien HUYNH, Lashae Lozano Primary Care Physician [place] [facility] [place] - 12/26/22 [facility] [address] [place], [place] [address] Encounter Diagnosis Severe obesity(Discharge Diagnosis) - 12/19/22 Chronic RUQ pain(Discharge Diagnosis) - 12/19/22 Hypothyroidism, postsurgical(Discharge Diagnosis) - 12/19/22 Health care maintenance(Discharge Diagnosis) - 12/19/22 Attending Physician: Lashae Crowe MD, V Allergies, [...] mL, 3 Refills, Maintenance, 09/15/22 8:02:00 EST, [facility] [id number], 30, TAKE 1 PUFF BY MOUTH 4 TIMES A DAY, 154.9, cm, 08/21/22 10:34:00 EST, Height, 96, kg, 04/17/22 14:30:00 EDT, Dry Weight Start Date: 09/15/22 Status: Ordered diclofenac 1% topical gel 1 application, Topically, 4 times a day, PRN Pain , Moderate, # 100 Gm, 1 Refills, Maintenance, 06/03/22 11:10:00 EDT, Gel, [facility]/pharmacy #[id number], Partial fill upon patient request if the prescription is for a schedule II opioid drug., 61, cm, 05/30/22 1... Start Date: 06/03/22 Status: Ordered ibuprofen 600 mg oral tablet 600 mg, 1, tablet, By Mouth, Every 6 hours, PRN, # 40 tablet, Refills 0, Tot. Refills 0, Maintenance, Pain , Mild, 07/18/22 14:31:00 EST, Route to Pharmacy Electronically, [facility]/pharmacy #[id number], Partialfill upon patient [...] tablet, 1 Refills, Maintenance, 10/07/22 7:38:00 EST, [facility], 90, TAKE 1 TABLET BY MOUTH EVERY DAY, 154.9, cm, 09/30/22 16:07:00 EST, Height, 96, kg, 04/17/2214:30:00 EDT, Dry Weight Start Date: 10/07/22 Status: Ordered Problem List Condition Confirmation Course Effective Dates Status Health St atus Informant Asthma Confirmed Active 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 Hx of bariatric surgery Confirmed Active Gallbladder hydrops Confirmed Active Health care maintenance Confirmed Active Hypothyroidism, postsurgical Confirmed Active Chronic RUQ pain Confirmed Active Severe obesity Confirmed Active Diagnosis Diagnosis Type Effective Dates Health Status Clinical Service Informant Severe obesity Discharge Diagnosis 12/19/22 Chronic RUQ pain Discharge Diagnosis 12/19/22 Hypothyroidism, postsurgical Discharge Diagnosis 12/19/22 Health care maintenance Discharge Diagnosis 12/19/22 Vital Signs Most recent to oldest [Reference Range]: 1 Height 154 cm (12/19/22 1:01 PM) Weight 105.2 kg (12/19/22 1:01 PM) Oxygen Saturation [94-100 %] 98 % (12/19/22 1:01 PM) Pulse Rate [55-90 bpm] 72 bpm (12/19/22 1:01 PM) Body Mass Index [18.5-24.99 kg/m2] 44.36 kg/m2 *>HHI* (12/19/22 1:01 PM) Blood Pressure [90-138/55-84 mm Hg] 122/ 76mm Hg (12/19/22 1:01 PM) Blood pressure sites Arm, left (12/19/22 1:01 PM) Social History Social History Type Response Smoking Status Never (less than 100 in lifetime) entered on: 07/31/20 Sex Patient Care team information Care Team Personnel Name: Lashae Crowe MD, V Position: [facility] Primary Care Physician Member Role: PCP Address: Address: [address] [place] [address]- Care Team Related Persons Name: JUSTIN PEPPER Address: home [address] [address] Name: KAIN BROOKS Address: [address] Address: home [address] [address] Name: TARSHA DANGELO Address: home [address] [address]
--- OUTSIDE RECORDS SUMMARY | 2024-01-28 06:15 | XMS_ITS | Continuity of Care Document ---
Author Organization [facility] Atilio umesh Address [address] [place] [address] [address] [place] [address]- Care Team Providers Care Thermostat Repairer Name Role Phone Name Boston HUYNH Primary Care Physician [phone] [place] [facility] [place](s): 04/17/22 - 04/24/22 [facility] [address] [place] [address]- Attending Physician: Lisa Urena MD Referring Physician: Name Boston HUYNH Allergies, [...] 03/15/22 5:23:00 EDT, Route to Pharmacy Electronically, [facility]/pharmacy #[id number], Partial fill upon patient [...] 3 Refills, Maintenance, 11/01/21 8:45:00 EST, Tablet, [facility]/pharmacy #[id number], Partial fill upon patient request if the prescription is for a schedule II opioid drug., 155, cm, 10/28/21 11:50:00 EST, Height... Start Date: 11/01/21 Status: Ordered Vitamin D2 2000 intl units oral capsule 1 capsule = 50 mcg, By Mouth, Daily, with food, # 90 capsule, 3 Refills, Maintenance, 11/01/21 8:47:00 EST, Capsule, [facility]/pharmacy #[id number], Partial fill upon patient [...] oldest [Reference Range]: 1 Height 61 cm (04/17/22 2:30 PM) Weight 96 kg (04/17/22 2:30 PM) Body Mass Index [18.5-24.99] 258 *>HHI* (04/17/22 2:30 PM) Dry Weight 96 kg (04/17/22 2:30 PM) Dry Weight Obtained Via Standing scale (04/17/22 2:30 PM) Social History Social History Type Response Smoking Status Never (less than 100 in lifetime) entered on: 08/27/21 Sex
--- OUTSIDE RECORDS SUMMARY | 2024-01-28 06:15 | XMS_ITS | Continuity of Care Document ---
Author Organization [facility] Address [address] [place] [address]- Care Team Providers Care Railroad Crossing Protection Maintainer Name Role Phone Lashae Crowe MD, V Primary Care Physician Encounter [facility] [place] Date(s): 11/14/22 - 12/14/[address] [facility] [place] [facility] [address] [place], [place] [address] Allergies, Adverse [...] each, 0 Refills, Maintenance, 10/17/22 11:33:00 EST, [facility]/pharmacy #[id number], Partial fill upon patient request if the prescription is for a schedule II opioid drug., Please dispense 2... Start Date: 10/17/22 Status: Ordered Combivent Respimat 20 mcg-100 mcg/inh inhalation aerosol 1 puffs, Inhalation, 4 times a day, # 4 mL, 3 Refills, Maintenance, 09/15/22 8:02:00 EST, [facility] [id number], 30, TAKE 1 PUFF BY MOUTH 4 TIMES A DAY, 154.9, cm, 08/21/22 10:34:00 EST, Height, 96, kg, 04/17/22 14:30:00 EDT, Dry Weight Start Date: 09/15/22 Status: Ordered diclofenac 1% topical gel 1 application, Topically, 4 times a day, PRN Pain , Moderate, # 100 Gm, 1 Refills, Maintenance, 06/03/22 11:10:00 EDT, Gel, [facility]/pharmacy #[id number], Partial fill upon patient request if the prescription is for a schedule II opioid drug., 61, cm, 05/30/22 1... Start Date: 06/03/22 Status: Ordered ibuprofen 600 mg oral tablet 600 mg, 1, tablet, By Mouth, Every 6 hours, PRN, # 40 tablet, Refills 0, Tot. Refills 0, Maintenance, Pain , Mild, 07/18/22 14:31:00 EST, Route to Pharmacy Electronically, [facility]/pharmacy #[id number], Partialfill upon patient [...] 1 Refills,Maintenance, 11/18/22 12:22:00 EDT, [facility], [id number], Partial fill upon patient request if the prescription is for a schedule II opioid drug... Start Date: 11/18/22 Status: Ordered Plus Low Iron oral tablet 1 tablet, By Mouth, Daily, # 90 tablet, 1 Refills, Maintenance, 10/07/22 7:38:00 EST, [facility], 90, TAKE 1 TABLET BY MOUTH EVERY [...] Personnel Name: Sebastien HUYNH, Lashae Lozano Position: [facility] Primary Care Physician Member Role: PCP Address: Address: [address] [place] [address]- Care Team Related Persons Name: JUSTIN PEPPER Address: home [address] [address] Name: KAIN BROOKS Address: [address] Address: [address] [address] Name: TARSHA DANGELO Address: [address] [address]
--- OUTSIDE RECORDS SUMMARY | 2024-01-28 06:15 | XMS_ITS | Continuity of Care Document ---
Author Organization [facility] Martinarod Bates [employer] [facility] Address [address] [facility], [address] [place] [address]- Care Team Providers Care Block Placer Name Role Phone Name Boston HUYNH Primary Care Physician [phone] [facility] [place] Date(s): 02/27/22 - 03/29/22 [facility] [employer] [facility] [address] [facility], [address] [place] [address]- Allergies, Adverse Reactions, Alerts Substance Reaction Severity [...] 0 Refills, Maintenance, 03/15/22 5:23:00 EDT, Capsule, [facility]/pharmacy #[id number], Partial fill upon patient request [...] 03/15/22 5:23:00 EDT, Route to Pharmacy Electronically, [facility]/pharmacy #[id number], Partial fill upon patient request if the prescription... Start Date: 03/15/22 Status: Ordered PNV Plus oral tablet 1 tablet, By Mouth, Daily, # 90 tablet, 1 Refills, Maintenance, 10/07/21 16:30:00 EST, [facility]/pharmacy#[id number], Partial fill upon patient request if [...]
--- OUTSIDE RECORDS SUMMARY | 2024-01-28 06:15 | XMS_ITS | Continuity of Care Document ---
Author Organization [facility] Address Unknown Care Team Providers Care Color Dipper Name Role Phone Name Boston HUYNH Primary Care Physician En[place] [facility] [place] Date(s): 07/22/21 - 08/21/21 [facility] Allergies, Adverse Reactions, Alerts Substance [...] tablet, 1 Refills, Maintenance, 11/06/20 16:46:00 EST, [facility]/pharmacy #[id number], Partial fill upon patient [...] Replace Required Details, Route to Pharmacy Electronically, [facility]/pharmacy #[id number], Partial fill upo... Start [...] # 120 capsule, 1 Refills, [id number], 155, cm, 01/02/21 9:19:00 EDT, Height Start Date: 08/13/21 Status: Ordered Provera 10 mg oral tablet 10 mg, 1, tablet, By Mouth, Daily, start tomorrow if test is negative, # 10 tablet, Refills 0, Tot. Refills 0, Maintenance, 12/13/20 13:05:00 EDT, Route to Pharmacy Electronically, [facility]/pharmacy #[id number], Partial fill upon patient request if the... 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
--- OUTSIDE RECORDS SUMMARY | 2024-01-28 06:15 | XMS_ITS | Continuity of Care Document ---
Author Organization [facility] Address [address] [place] [address]- Care Team Providers Care Video And Sound Recorder Name Role Phone Sebastien HUYNH, Lashae Lozano Primary Care Physician [phone] Encounter [facility] [place] Date(s): 07/15/22 - 08/14/[address] [address]- Allergies, Adverse Reactions, Alerts Substance Reaction Severity [...] 3 Refills, Maintenance, 05/15/22 9:21:00 EDT, Aerosol, [facility]/pharmacy #[id number], Partial fill [...] Personnel Name: Lashae Crowe MD, V Position: [facility] Primary Care Physician Member Role: PCP Address: Address: [address] [place] [address]- Care Team Related Persons Name: JUSTIN PEPPER Address: home [address] [address] Name: KAIN BROOKS Address: [address] Address: home [address] [address] [place] Name: TARSHA DANGELO Address: home [address] [address]
--- OUTSIDE RECORDS SUMMARY | 2024-01-28 06:15 | XMS_ITS | Continuity of Care Document ---
Author Organization [facility] Martinarod Bates [facility] Address [address] [place] [address], [address] [place] [address]- Care Team Providers Care Select Banker Name Role Phone Name Boston HUYNH Primary Care Physician Encounter [facility] [place] Date(s): 02/26/22 - 03/28/22 [facility] [employer] [facility] [facility] [address] [facility], [address]th [place] [address]- Allergies, Adverse Reactions, Alerts Substance Reaction Severity [...] Refills, Maintenance, 03/15/22 5:23:00 EDT, Capsule, [facility]/pharmacy #[id number], Partial fill upon patient request if [...] 5:23:00 EDT, Route to Pharmacy Electronically, [facility]/pharmacy #[id number], Partial fill upon patient request if the prescription... Start Date: 03/15/22 Status: Ordered PNV Plus oral tablet 1 tablet, By Mouth, Daily, # 90 tablet, 1 Refills, Maintenance, 10/07/21 16:30:00 EST, [facility]/pharmacy#[id number], Partial fill upon patient request if the [...]
--- OUTSIDE RECORDS SUMMARY | 2024-01-28 06:15 | XMS_ITS | Continuity of Care Document ---
Author Organization [facility] Address [address] [place] [address]- Care Team Providers Care Tool And Production Planner Name Role Phone Sebastien HUYNH, Lashae Lozano Primary Care Physician Encounter [facility] Date(s): 06/18/22 - 07/18/22 [facility] [address] [place], [place] [address] Allergies, Adverse Reactions, Alerts Substance [...] Kaleb rded influenza virus vaccine, inactivated 05/14/11 Kalbe rded influenza virus vaccine, inactivated 05/24/10 Kaleb rded influenza virus vaccine, inactivated 08/14/09 Kaleb rded influenza virus vaccine, inactivated 06/20/08 Kaleb rded tetanus-diphtheria toxoids (Td) 08/23/04 Recorded Medications albuterol-ipratropium 100 mcg-20 mcg/inh inhalation aerosol 1 puffs, Inhalation, 4 times a day, # 4 Gm, 3 Refills, Maintenance, 05/15/22 9:21:00 EDT, Aerosol, [facility]/pharmacy #[id number], Partial fill upon patient request if the prescription is for a schedule II opioid drug., 1 puffs Inhalation 4 times a day, 61, cm, 0... Start Date: 05/15/22 Status: Ordered diclofenac 1% topical gel 1 application, Topically, 4 times a day, PRN Pain , Moderate, # 100 Gm, 1 Refills, Maintenance, 06/03/22 11:10:00 EDT, Gel, [facility]/pharmacy #[id number], Partial fill upon patient request if the prescription is for a schedule II opioid drug., 61, cm, 05/30/22 1... Start Date: 06/03/22 Status: Ordered ibuprofen 600 mg oral tablet 600 mg, 1, tablet, By Mouth, Every 6 hours, PRN, # 40 tablet, Refills 0, Tot. Refills 0, Maintenance, Pain , Mild, 07/18/22 14:31:00 EST, Route to Pharmacy Electronically, [facility]/pharmacy #[id number], Partialfill upon patient [...] 0 Refills, Maintenance, 07/01/22 9:17:00 EDT, Solution, [facility]/pharmacy #[id number], Partial fill [...] Crowe MD, V Position: [facility] Primary Care Physician Member Role: PCP Address: Address: [address] [place] [address]- Care Team Related Persons Name: JUSTIN PEPPER Address: home [address] [address] Name: KAIN BROOKS Address: [address] Address: home [address] [address] Name: TARSHA DANGELO Address: home [address] [address]
--- OUTSIDE RECORDS SUMMARY | 2024-01-28 06:15 | XMS_ITS | Continuity of Care Document ---
Author Organization [facility] Address [address] [facility], [address] [place] [address]- Care Team Providers Care Net Repairer Name Role Phone Name Boston HUYNH Primary Care Physician [place] [facility] [place]s): 11/26/21 - 12/26/21 [facility] [address] [facility], [address] [place] [address]- Allergies, Adverse Reactions, Alerts Substance Reaction Severity [...] Route to Pharmacy Electronically, [facility]/pharmacy #[id number], Partial fill upon patient request if the [...]
--- OUTSIDE RECORDS SUMMARY | 2024-01-28 06:15 | XMS_ITS | Continuity of Care Document ---
Author Organization [facility] Address [address] [place] [address]- Care Team Providers Care Loin Puller Name Role Phone Sebastien HUYNH, Lashae Lozano Primary Care Physician Encounter [facility] [place] Date(s): 04/07/23 - 05/07/[address] [address]- Allergies, Adverse Reactions, Alerts Substance Reaction Severity [...] mL, 3 Refills, Maintenance, 09/15/22 8:02:00 EST, [facility] [id number], 30, TAKE 1 PUFF BY MOUTH 4 TIMES A DAY, 154.9, cm, 08/21/22 10:34:00 EST, Height, 96, kg, 04/17/22 14:30:00 EDT, Dry Weight Start Date: 09/15/22 Status: Ordered diclofenac 1% topical gel 1 application, Topically, 4 times a day, PRN Pain , Moderate, # 100 Gm, 1 Refills, Maintenance, 06/03/22 11:10:00 EDT, Gel, [facility]/pharmacy #[id number], [...] 07/18/22 14:31:00 EST, Route to Pharmacy Electronically, [facility]/pharmacy #[id number], Partialfill upon patient request if the [...] capsule, 3 Refills, Maintenance, 05/05/23 12:09:00EDT, Capsule, [facility]/pharmacy #[id number], Partial fill upon patient request if the prescription is for a schedule II opioid drug., 154, cm, 12/19/22 13:01:00 E... Start Date: 05/05/23 Status: Ordered Plus Low Iron oral tablet 1 tablet, By Mouth, Daily, # 90 tablet, 1 Refills, Maintenance, 10/07/22 7:38:00 EST, [facility], 90, TAKE 1 TABLET BY MOUTH EVERY DAY, 154.9, cm, 09/30/22 16:07:00 EST, Height, 96, kg, 04/17/2214:30:00 EDT, Dry Weight Start Date: 10/07/22 Status: Ordered sertraline 25 mg oral tablet 1 tablet, By Mouth, Daily in AM, # 90 tablet, 1 Refills, Maintenance, 04/27/23 9:08:00 EDT, [id number], 154, cm, 12/19/22 13:01:00 EDT, Height, 108, [...] Personnel Name: Lashae Crowe MD, V Position: [facility] Physician - Primary Care Member Role: PCP Address: Address: [address] [place] [address]- Name: Dee Dee Roberts Position: [facility] Outreach Member Role: Lifetime Consulting Physician Care Team Related Persons Name: JUSTIN PEPPER Address: home [address] [address] Name: KAIN BROOKS Address: [address] Address: home [address] [address] [place] Name: TARSHA DANGELO Address: home [address] [address]
--- OUTSIDE RECORDS SUMMARY | 2024-01-28 06:15 | XMS_ITS | Continuity of Care Document ---
Author Organization [facility] Address [address] [place] [address] ve [address] [place] [address]- Care Team Providers Care Hydrologic Engineer Name Role Phone Lashae Crowe MD, V Primary Care Physician Encounter [facility] Date(s): 10/14/22 - 11/13/[address] [place] [address]- Attending Physician: Admtr, [id number] Admitting Physician: Admtr, [...] 0 Refills, Maintenance, 10/17/22 11:33:00 EST, [facility]/pharmacy #[id number], Partial fill upon patient request if the prescription is for a schedule II opioid drug., Please dispense 2... Start Date: 10/17/22 Status: Ordered Combivent Respimat 20 mcg-100 mcg/inh inhalation aerosol 1 puffs, Inhalation, 4 times a day, # 4 mL, 3 Refills, Maintenance, 09/15/22 8:02:00 EST, [facility] [id number], 30, TAKE 1 PUFF BY MOUTH 4 TIMES A DAY, 154.9, cm, 08/21/22 10:34:00 EST, Height, 96, kg, 04/17/22 14:30:00 EDT, Dry Weight Start Date: 09/15/22 Status: Ordered diclofenac 1% topical gel 1 application, Topically, 4 times a day, PRN Pain , Moderate, # 100 Gm, 1 Refills, Maintenance, 06/03/22 11:10:00 EDT, Gel, [facility]/pharmacy #[id number], Partial fill upon patient request if the prescription is for a schedule II opioid drug., 61, cm, 05/30/22 1... Start Date: 06/03/22 Status: Ordered ibuprofen 600 mg oral tablet 600 mg, 1, tablet, By Mouth, Every 6 hours, PRN, # 40 tablet, Refills 0, Tot. Refills 0, Maintenance, Pain , Mild, 07/18/22 14:31:00 EST, Route to Pharmacy Electronically, [facility]/pharmacy #[id number], Partialfill upon patient request [...] Refills, Maintenance, 10/07/22 7:38:00 EST, [id number], 90, TAKE 1 TABLET BY MOUTH EVERY [...] Care Physician Member Role: PCP Address: Address: [address] [place] [address]- Care Team Related Persons Name: JUSTIN PEPPER Address: home [address] [address] Name: KAIN BROOKS Address: [address] Address: [address] Name: HADLEYSONYARODOOCTAVIO Address: home [address] [place] [address]
--- OUTSIDE RECORDS SUMMARY | 2024-01-28 06:15 | XMS_ITS | Continuity of Care Document ---
Author Organization [facility] Address [address] [facility], [address] [place] [address]- Care Team Providers Care Commercial Solar Sales Consultant Name Role Phone Sebastien HUYNH, Lashae Lozano Primary Care Physician Encounter [facility] Date(s): 05/14/22 - 06/13/22 [facility] [place] [facility] [address] [facility], [address] [place] [address]- Allergies, Adverse Reactions, Alerts Substance Reaction Severity [...] Refills, Maintenance, 05/15/22 9:21:00 EDT, [facility], [id number], Partial fill upon patient request if the prescription is for a schedule II opioid drug., 1 puffs Inhalation 4 times a day, 61, cm, 0... Start Date: 05/15/22 Status: Ordered diclofenac 1% topical gel 1 application, Topically, 4 times a day, PRN Pain , Moderate, # 100 Gm, 1 Refills, Maintenance, 06/03/22 11:10:00 EDT, [facility]/pharmacy #[id number], Partial fill upon patient request if the [...] Name: Lashae Crowe MD, V Address: Address: [address] [place] [address]
--- OUTSIDE RECORDS SUMMARY | 2024-01-28 06:15 | XMS_ITS | Continuity of Care Document ---
Author Organization [facility] Address [address] [place] [address], [address] [place] [address]- Care Team Providers Care Pattern Gater Name Role Phone Name [place] HUYNH Primary Care Physician [phone] Encounter [facility] Date(s): 11/05/21 - 12/05/21 [facility] [employer] [facility] [address] [facility], [address] [place] [address]- Allergies, Adverse Reactions, Alerts Substance Reaction Severity [...] to Pharmacy Electronically, [facility]/pharmacy #[id number], Partial fill upon patient request if [...] 1 Refills, Maintenance, 11/06/20 16:46:00 EST, [facility]/pharmacy #[id number], Partial fill [...] Required Details, Route to Pharmacy Electronically, [facility]/pharmacy #[id number], Partial fill upo... Start [...] 1 Refills, Maintenance, 10/07/21 16:30:00 EST, [facility]/pharmacy#[id number], Partial fill upon patient request if [...] DAY, # 120 capsule, 1 Refills, [id number], 155, cm, 01/02/21 9:19:00 EDT, Height Start Date: 08/13/21 Status: Ordered Provera 10 mg oral tablet 10 mg, 1, tablet, By Mouth, Daily, start tomorrow if test is negative, # 10 tablet, Refills 0, Tot. Refills 0, Maintenance, 12/13/20 13:05:00 EDT, [facility], [facility] Refills, Maintenance, 11/01/21 8:47:00 EST, Capsule, [facility]/pharmacy #[id number], Partial [...]
--- OUTSIDE RECORDS SUMMARY | 2024-01-28 06:15 | XMS_ITS | Continuity of Care Document ---
Author Organization [facility] Address [address] [place] [address] [address] [place] [address]- Care Team Providers Care Delicatessen Clerk Name Role Phone Lashae Crowe MD, V Primary Care Physician [phone] Encounter [facility] Date(s): 08/06/23 - 09/05/23 [facility] [address] [place], [place] [address] Attending Physician: Admtr, Whitney Admitting Physician: Admtr, [id number] Referring Physician: Admtr, [id number] Allergies, Adverse Reactions, [...] mL, 3 Refills, Maintenance, 09/15/22 8:02:00 EST, [facility] [id number], 30, TAKE 1 PUFF BY MOUTH 4 TIMES A DAY, 154.9, cm, 08/21/22 10:34:00 EST, Height, 96, kg, 04/17/22 14:30:00 EDT, Dry Weight Start Date: 09/15/22 Status: Ordered diclofenac 1% topical gel 1 application, Topically, 4 times a day, PRN Pain , Moderate, # 100 Gm, 3 Refills, Maintenance, 05/18/23 11:18:00 EDT, Gel, [facility]/pharmacy #[id number], Partial fill upon patient request if the prescription is for a schedule II opioid drug., 154, cm, 12/19/22... Start Date: 05/18/23 Status: Ordered ibuprofen 600 mg oral tablet 600 mg, 1, tablet, By Mouth, Every 6 hours, PRN, # 40 tablet, Refills 0, Tot. Refills 0, Maintenance, Pain , Mild, 07/18/22 14:31:00 EST, Route to Pharmacy Electronically, [facility]/pharmacy #[id number], Partialfill upon patient [...] capsule, 3 Refills, Maintenance, 05/05/23 12:09:00EDT, Capsule, [facility]/pharmacy #[id number], Partial fill upon patient request if the prescription is for a schedule II opioid drug., 154, cm, 12/19/22 13:01:00 E... Start Date: 05/05/23 Status: Ordered Plus Low Iron oral tablet 1 tablet, By Mouth, Daily, # 90 tablet, 1 Refills, Maintenance, 10/07/22 7:38:00 EST, [id number], 90, TAKE 1 TABLET BY MOUTH EVERY DAY, 154.9, cm, 09/30/22 16:07:00 EST, Height, 96, kg, 04/17/2214:30:00 EDT, Dry Weight Start Date: 10/07/22 Status: Ordered sertraline 25 mg oral tablet 1 tablet, By Mouth, Daily in AM, # 90 tablet, 1 Refills, Maintenance, 04/27/23 9:08:00 EDT, [id number], 154, cm, 12/19/22 13:01:00 EDT, Height, 108, [...] Personnel Name: Lashae Crowe MD, V Position: [facility] Physician - Primary Care Member Role: PCP Address: Address: [address] [place] [address]- Name: Dee Dee Roberts Position: [facility] Outreach Member Role: Lifetime Consulting Physician Care Team Related Persons Name: JUSTIN PEPPER Address: [address] [address] Name: TODD KAIN Address: [address] Address: [address] [address] [place] Name: TARSHA DANGELO Address: home [address] [address]
--- OUTSIDE RECORDS SUMMARY | 2024-01-28 06:15 | XMS_ITS | Continuity of Care Document ---
Author Organization [facility] Address [address] [place] [address] ve [address] [place] [address]- Care Team Providers Care Programming Equipment Operator Name Role Phone Sebastien HUYNH, Lashae Lozano Primary Care Physician [phone] [place] [facility] [place]s): 04/29/23 - 06/27/23 [facility] [address] [place] [address]- Attending Physician: Lisa Urena MD Allergies, Adverse [...] mL, 3 Refills, Maintenance, 09/15/22 8:02:00 EST, [facility] [id number], 30, TAKE 1 PUFF BY MOUTH 4 TIMES A DAY, 154.9, cm, 08/21/22 10:34:00 EST, Height, 96, kg, 04/17/22 14:30:00 EDT, Dry Weight Start Date: 09/15/22 Status: Ordered diclofenac 1% topical gel 1 application, Topically, 4 times a day, PRN Pain , Moderate, # 100 Gm, 3 Refills, Maintenance, 05/18/23 11:18:00 EDT, Gel, [facility]/pharmacy #[id number], Partial fill upon patient request if the prescription is for a schedule II opioid drug., 154, cm, 12/19/22... Start Date: 05/18/23 Status: Ordered ibuprofen 600 mg oral tablet 600 mg, 1, tablet, By Mouth, Every 6 hours, PRN, # 40 tablet, Refills 0, Tot. Refills 0, Maintenance, Pain , Mild, 07/18/22 14:31:00 EST, Route to Pharmacy Electronically, [facility]/pharmacy #[id number], Partialfill upon patient request if [...] capsule, 3 Refills, Maintenance, 05/05/23 12:09:00EDT, Capsule, [facility]/pharmacy #[id number], Partial fill upon patient request if the prescription is for a schedule II opioid drug., 154, cm, 12/19/22 13:01:00 E... Start Date: 05/05/23 Status: Ordered Plus Low Iron oral tablet 1 tablet, By Mouth, Daily, # 90 tablet, 1 Refills, Maintenance, 10/07/22 7:38:00 EST, [id number], 90, TAKE 1 TABLET BY MOUTH EVERY DAY, 154.9, cm, 09/30/22 16:07:00 EST, Height, 96, kg, 04/17/2214:30:00 EDT, Dry Weight Start Date: 10/07/22 Status: Ordered sertraline 25 mg oral tablet 1 tablet, By Mouth, Daily in AM, # 90 tablet, 1 Refills, Maintenance, 04/27/23 9:08:00 EDT, [id number], 154, cm, 12/19/22 13:01:00 EDT, Height, 108, [...] Personnel Name: Lashae Crowe MD, V Position: [facility] Physician - Primary Care Member Role: PCP Address: Address: [address] [place] [address] Name: Dee Dee Roberts Position: [facility] Outreach Member Role: Lifetime Consulting Physician Care Team Related Persons Name: JUSTIN PEPPER Address: [address] [address] Name: KAIN BROOKS Address: [address] Address: [address] [address] [place] Name: TARSHA DANGELO Address: home [address] [address]
--- OUTSIDE RECORDS SUMMARY | 2024-01-28 06:15 | XMS_ITS | Continuity of Care Document ---
Author Organization [facility] Address [address] [place] [address] [address] [place] [address]- Care Team Providers Care Skid Wrapper Name Role Phone Sebastien HUYNH, Lashae Lozano Primary Care Physician Encounter [facility] [place] [place] [facility] [id number] Date(s): 08/21/22 - 08/28/22 [facility] [address] [place] [address]- Attending Physician: Lisa Urena MD Referring Physician: Lashae Crowe MD, V [...] Refills, Maintenance, 05/15/22 9:21:00 EDT, Aerosol, [facility]/pharmacy #[id number], Partial fill upon patient request if the prescription is for a schedule II opioid drug., 1 puffs Inhalation 4 times a day, 61, cm, 0... Start Date: 05/15/22 Status: Ordered diclofenac 1% topical gel 1 application, Topically, 4 times a day, PRN Pain , Moderate, # 100 Gm, 1 Refills, Maintenance, 06/03/22 11:10:00 EDT, Gel, [facility]/pharmacy #[id number], Partial fill upon patient request if the prescription is for a schedule II opioid drug., 61, cm, 05/30/22 1... Start Date: 06/03/22 Status: Ordered ibuprofen 600 mg oral tablet 600 mg, 1, tablet, By Mouth, Every 6 hours, PRN, # 40 tablet, Refills 0, Tot. Refills 0, Maintenance, Pain , Mild, 07/18/22 14:31:00 EST, Route to Pharmacy Electronically, [facility]/pharmacy #[id number], Partialfill upon patient request if [...] Refills, Maintenance, 07/01/22 9:17:00 EDT, Solution, [facility]/pharmacy #[id number], Partial fill upon patient request [...] oldest [Reference Range]: 1 Height 154.9 cm (08/21/22 10:34 AM) Social History Social History Type Response Smoking Status Never (less than 100 in lifetime) entered on: 07/31/20 Sex Patient Care team information Care Team Personnel Name: Sebastien HUYNH, Lashae Lozano Position: [facility] Primary Care Physician Member Role: PCP Address: Address: [address] [place] [address]- Care Team Related Persons Name: JUSTIN PEPPER Address: home [address] [address] Name: KAIN BROOKS Address: [id number] Address: [address] [address] Name: TARSHA DANGELO Address: [address] [address]
[2024-01-28] MEDS: Aprepitant 32 MG/4.4 ML VIAL IVPUSH (06:42)
[2024-01-28] MEDS: Lactated Ringers 1,000 ML 999 ML IV (06:42)
[2024-01-28 06:43] LABS: UPreg QC Valid YES; Urine Pregnancy NEGATIVE (NEGATIVE)
--- NOTE | 2024-01-28 06:44 | PHA.MEDREC ---
Pharmacy Consult ? Medication Reconciliation Pharmacy has completed the medication reconciliation. Reviewed med rec done by nursing
--- NOTE | 2024-01-28 07:36 | PC.NURSE ---
md by bedside speaking to patient about her plan of care.
--- NOTE | 2024-01-28 12:13 | P.DS_ITS ---
DS: Providers Provider Date of Service: 01/29/24 Date of admission: 01/28/24 06:00 Primary care physician: Lashae Crowe MD DS: Summary Hospital Course Hospital Course: ADMITTING DIAGNOSIS: obesity, dysthymia, asthma, hypothyroidism, ? DISCHARGE DIAGNOSIS: same, s/p revision of previous laparoscopic sleeve gastrectomy and repair diaphragmatic hernia ? PAST SURGICAL HISTORY: gastric band, removal of band and sleeve gastrectomy, cesarian section, thyroidectomy ? PROCEDURE: upper endoscopy, laparoscopic revision of sleeve gastrectomy, lysis of adhesions and repair of diaphragmatic hernia hernia ? DISCHARGE SUMMARY: ? History of Present Illness: ? The patient is a?43 year-old woman with a BMI of?43.6 kg/m2 and associated co- morbidities as described above. The patient had extensive work-up,lost?18.1 lbs preoperatively and was electively scheduled for laparoscopic, possible open revision of previous sleeve gastrectomy and gastropexy. Risks and complications of the surgery were discussed with the patient in advance, particularly the possibility of , pulmonary embolism, anastomotic leak, bleeding, bowel injury, GERD, cardiac, renal or pulmonary complications. The patient understood all the risks and was in agreement with the surgical plan. ? Hospital Course: ? The patient underwent an uneventful laparoscopic revision of sleeve gastrectomy and lysis of adhesions with gastropexy and repair of diaphragmatic hernia on the day of admission. Postoperatively, the patient was transferred to the surgical floor. The patient received IV Acetaminophen and IV dilaudid for pain control. Patient was started on bariatric phase 1 diet POD #0. On postoperative day one, the patient was feeling well without nausea, vomiting, fevers, or tachycardia. The patient had some mild incisional pain and the abdomen was soft. ? On the morning of postoperative day one, the patient was continued on 1 ounce of water or ice every half hour. During the day, the patient did fairly well, having some incisional pain, but able to ambulate adequately and to tolerate liquids well. ? Since the patient is doing well, we decided that the patient was ready to be discharged. The patient was given instructions to follow-up with me next week and to call my office for any fever over 101, persistent abdominal pain, nausea, vomiting, GERD, symptoms of DVT such as calf tenderness, or leg swelling, or pulmonary embolism such as chest pain or shortness of breath. The patient was also instructed to drink 40-60 ounces of liquids per day using the 1-ounce cups. The patient had been given prescriptions for Tylenol for pain, Zofran prn for nausea, and pantoprazole and carafate previously. The patient was encouraged to ambulate and use the incentive spirometer. The patient was allowed to shower, but no baths, and encouraged to stay active at home. All of these instructions were given to the patient personally. All questions were answered and the patient understood all instructions, the instructions were also given to the patient in print. Time Attestation Total time managing care of this patient today: 25 mintues. Discharge Coordination Time (in mins): 25 Quality: Safe Use of Opioids Does Pt have an Active Cancer Diagnosis on the Problem List?: No Quality: Stroke Does the patient have a stroke diagnosis?: No Physical Exam Vital Signs: Vital Signs: Last Vital Signs Temp 97.8 F 01/28/24 11:42 Pulse 106 H 01/28/24 12:00 Resp 19 01/28/24 12:00 BP 135/85 01/28/24 12:00 Pulse Ox 96 01/28/24 12:00 O2 Del Method Nasal Cannula wit h Capnography 01/28/24 12:00 O2 Flow Rate 2 01/28/24 12:00 BMI result Body Mass Index 39.0 DS: Data Data Completed and Pending Pending studies at discharge: Pending at discharge 01/28/24 10:54 Surgical [PTH] Routine Labs on day of discharge: Laboratory Results - last 24 hr 01/28/24 06:11 Urine Test NEGATIVE Discharge Plan Discharge Anticipated Discharge Date/Time: 01/29/24 10:00 Patient Disposition: Home, Self-Care Discharge Diagnosis: s/p laparoscopic revision of sleeve gastrectomy, lysis of adhesions and repair of diaphragmatic hernia Referrals: Lashae Crowe MD [Primary Care Provider] - 1 Week Discharge Medications: Continued levothyroxine [Synthroid] 200 mcg tablet 200 mcg PO DAILY@0600 pantoprazole 40 mg tablet,delayed release (DR/EC) 40 mg PO DAILY Qty: 90 0RF sucralfate 100 mg/mL suspension 10 ml PO BID Qty: 600 2RF ondansetron 4 mg tablet,disintegrating 4 mg PO Q12H Qty: 20 0RF Discontinued cholecalciferol (vitamin D3) 125 mcg (5,000 unit) capsule 125 mcg PO DAILY@1200 vitamin A palmitate 3,000 mcg (10,000 unit) capsule 10,000 unit PO DAILY@1200 levothyroxine [Synthroid] 50 mcg tablet 50 mcg PO DAILY@0600 Rx Instructions: Take 50 ug with 200 ug = 250 ug daily cyanocobalamin (vitamin B-12) 500 mcg tablet 500 mcg PO DAILY@1200 polyethylene glycol 3350 17 gram/dose powder 17 g PO DAILY Qty: 238 0RF Rx Instructions: Mix each measuring cup with 8oz of water, Crystal light, or Gatorade zero, or Propel and do 7 measuring cups on 01/26/24 and another 7 measuring cups on 01/27/24 Discharge Orders: Discharge Order (Routine); Ordered 01/29/24 Ordered By: Miguel Angel Solis Activity on Discharge: No heavy lifting Stand Alone Forms: Patient Portal Discharge page Print Language: Wolof Care Plan Goals: weight loss Health Concerns: obesity Plan of Treatment: No tub baths, sex or returning to work until discussed at first post op appointment. No exercise, alcohol, tobacco or illegal drug use. Continue to use incentive spirometer hourly while awake. Walk in home for 5- 10 minutes every 2 hours during the first week. Follow all instructions in the bariatric handbook and call with any questions.Discharge Instructions 1. Please call your doctor or come back to the emergency room should any new symptoms arise. 2. You will receive a courtesy call from [facility] 24-48 hours after discharge. 3. Activity: abstain from alcohol, practice limited stair climbing, no bending, no driving, no exercise, no illicit substances, no lifting, no sex, no tub bath, no work. 4. Diet: continue as discussed with Dr. Solis. 5. Dressing Change/Wound Care: Your incision is covered by clear bandages and guaze underneath. If the area is tender, you may apply an ice pack for short intervals (no more than 20 minutes on, followed by at least 20 minutes off). Do not apply heat. Do not use creams, lotions, or topical antibiotics unless instructed to do so by your surgeon. These can cause infection or allergic reaction. 6. Call your doctor if: - Your temperature exceeds 101.5 F - You experience excessive pain or swelling - You have an unexpected reaction to medication - You have excessive bleeding - You experience continued vomiting/nausea - Your incision begins to separate - Your incision shows signs of infection such as increased redness, swelling, excessive pain, heat, or drainage (light blood or clear fluid is normal) 7. General instructions: No lifting greater than 5 lbs for 1 week and not more than 20lbs the next 3?weeks. No driving until seen at the office in 5-7 days after surgery. If you do not move your bowels in the next 2 days, please tell?Dr. Solis. Please walk around your home every hour or two to prevent blood clots from forming in your legs. You do not need to wake from sleeping to walk. Please sleep in a bed or couch to prevent kinking at the hips and knees. Please take your incentive spirometer (your lung student development specialist) home with you and use it for the next few days to prevent pneumonia. You may shower, no hot tubs, baths or swimming pools.?Please follow the post op diet instructions you are?given by Dr Solis? and text me daily at 5-6pm for an update.?If you have any issues or concerns or questions please communicate this to him via text.? The Celebrate shakes have all of the bariatric vitamins you need if you consume these shakes. If you are drinking other protein shakes, you will need to purchase the Celebrate multivitamins and calcium that are available in the hospital gift shop on the first floor of the main hospital.??Do not take anything without first discussing with Dr Solis. Please make sure you are consuming at least 40 ounces of fluids per day starting the?day AFTER your discharge from the hospital. Always drink 1-2 ml per minute using the 5ml?syringe. If you drink faster you may experience?bloating,?gas pain, burping, nausea or heartburn. In that case please slow down your pace and use the syringe to?understand better the?proper?pace and volume of drinking. Do not hesitate to contact the office with any questions at . The patient's medical history has been reviewed and they are considered low risk for post op DVT and therefore DVT prophylaxis is not considered necessary. Travel after surgery was reviewed. The patient has not disclosed any travel pl ans during the first 30 days after surgery and they have been advised that within the first 30 days after surgery any bus, plane, train or car travel over 2 hours in duration is contraindicated due to the possibility of developing blood clots from immobility. Any travel, needs to include periods of ambulation of 10 minutes in duration every 2 hours.? The patient was instructed to discuss any plans for travel during this period with their bariatric surgeon. Assessment: stable s/p laparoscopic revision of sleeve gastrectomy, lysis of adhesions and repair of diaphragmatic hernia
[2024-01-28] MEDS: Lactated Ringers 1,000 ML 100 ML IVCONT ×2 (13:26→22:49)
[2024-01-28] MEDS: ceFAZolin Sodium/Dextrose,Iso 2 GM/50 ML PIGGYBACK IV (13:30)
[2024-01-28 13:55] LABS: Hematocrit 39.4 % (37.0-47.0); Hemoglobin 13.2 g/dl (12.0-16.0)
--- NOTE | 2024-01-28 14:05 | P.BOP_ITS ---
Brief Operative Note Date of Service: 01/28/24 Pre-op diagnosis: Morbid obesity with comorbidities (see below) Post-op diagnosis: same (& diaphragmatic hernia, & extensive adhesions) Procedure: INITIAL PATIENT BMI ON PRESENTATION AT OUR OFFICE: 44.6 kg/m2 LAST BMI BEFORE SURGERY: 40.9 kg/m2 COMORBIDITIES: asthma, hypothyroidism, GERD, liver fibrosis, splenomegaly The patient presented to the Weight Management Program with significant obesity that was negatively impacting the patient's comorbidities as listed above. The program is a phased program with a special focus on preoperative medical weight management to promote substantial weight loss and prepare the patients for the second phase of the program: bariatric surgery. The patient participated in an intensive weekly lifestyle intervention and exercise program during which the patient has lost between the initial office visit and the last preoperative visit 22.2lbs, or 9.41% of initial actual body weight. It was deemed appropriate for the patient to now have bariatric surgery. In light of the current Covid-19 pandemic and the well documented strong association of obesity and increased risk of worse outcomes if infected with Covid-19 (REFERENCES:https://pubmed.ncb i.nlm.nih.gov/50410541/, https://pubmed.ncbi.nlm.nih.gov/94040051/), any delay in undergoing bariatric surgery may lead to the patient's worsening health condition and increased risk of more severe Covid-19 disease if infected. In addition a recent study from [facility] published in [facility] on 09/02/2021 ([email or web address]) found that, among patients with obesity, substantial weight loss achieved with surgery was associated with improved outcomes of COVID-19 infection. The findings suggest that obesity can be a modifiable risk factor for the severity of COVID-19 infection. In addition, the patient met the BMI-criteria for bariatric surgery based on the BMI on initial presentation. The patient should not be penalized for achieving such weight loss because it is not sustainable long-term without surgical intervention and it was achieved in preparation for bariatric surgery under my direction and based on my published research ([email or web address]).[email or web address] and [email or web address].soard.org/article/[email or web address]/pdf) that a 10% preoperative weight loss improves long-term weight loss after surgery and reduces perioperative complications. Insurance carriers such as [facility] have endorsed my recommendations and have included in their policies criteria to include a 10% preoperative weight loss requirement. PROCEDURE: Esophago-gastroscopy, laparoscopic repair of incarcerated diaphragmatic hernia, laparoscopic lysis of adhesions, laparoscopic sleeve gastrectomy and laparoscopic gastropexy INDICATIONS: This is a 43 year-old female who was electively scheduled for laparoscopic, possibly open sleeve gastrectomy revision. The patient has a previous lap band, which was subsequently removed and converted to sleeve gastrectomy by Dr. Jay. Preoperative work-up including an UGI and EGD is suggestive of a very large proximal pouch of retained gastric fundus as well as incomplete distal antral resection. The objective of this operation is to redo the sleeve. The risks and complications of the procedure were discussed with the patient in advance, particularly the possibility of ; pulmonary embolism; staple line leak; bleeding; GERD; cardiac, pulmonary, or renal complications; as well as long-term problems such as insufficient weight loss, vitamin deficiency, strictures, or ulcers. The patient understood all the risks, and was in agreement to proceed with surgery. DESCRIPTION OF PROCEDURE: After informed consent was obtained from the patient, the patient was given preoperative antibiotics, and was transferred to the operating room. After successful induction of general anesthesia, pneumatic compression devices were placed on both lower extremities. An upper endoscopy was performed next. The oropharynx and esophagus appeared to be within normal limits. There was a diaphragmatic hernia present of moderate size consistent with the findings of the preoperative upper GI. The stomach was entered. Then after all fluid and air were suctioned and the stomach was fully decompressed, the scope was withdrawn and secured in the mid esophagus. The patient was then prepped and draped in the usual sterile manner, and abdominal access was established at the right upper quadrant with the Andrew technique. A 12 mm blunt port was inserted, and the abdomen was insufflated with CO2 to a pressure of 15 mmHg. Under direct visualization, additional ports were placed, specifically two 5 mm Versi-step ports to the left upper quadrant, and a 5 mm Versi-Step port to the right upper quadrant. 1% lidocaine plain was used to infiltrate all port sites as well as all fascia defects. There were adhesions in the abdomen from previous sleeve gastrectomy involving the left lobe of the liver, the omentum and the anterior abdominal wall. These were very dense but I was able to free completely the sleeve from the left liver lobe. Those were lysed completely with the ultrasonic device. Following that, the patient was placed in a steep reverse Trendelenburg position. An additional 5 mm port was placed to the right flank for the Mediflex retractor that was used to retract the left lobe of the liver. The gastro-esophageal fat pad was opened with the ultrasonic device (Klinqunderbeat, Olympus) and the anterior esophagus and hiatus were exposed. The angle of His was opened with the ultrasonic device the fundus of the stomach from any diaphragmatic and splenic attachments. This was very difficult as there was a hard band which was part of the gastric band's capsule. However, I was able to free this area as well. I then opened the gastrocolic ligament between the transverse colon and the greater curvature of the stomach with the ultrasonic device to enter the lesser sac. This was very difficult as there were dense adhesions from previous sleeve gastrectomy. The posterior gastric wall was attached to the pancreas and extensive and tedious dissection was required to free the stomach. The dissection continued all the way to the angle of His until the left judy was completely dissected at its entirety. This allowed us to mobilize the stomach completely and appreciate the amount of stomach that was inappropriately left unresected at the original operation. Adhesiolysis took approximately 120 min to complete with a total operative time of 3 hours and 10 minutes. There was also an obvious hiatal hernia. I continued dissecting along the hiatus toward the left judy and the angle of His. I fully mobilized the fat pad that was incarcerated in the hernia. I then continued by dissecting even further into the posterior retro-esophageal space all the way to the angle of His. I continued to mobilize the esophagus into the mediastinum circumferentially. Both vagal nerves were seen and preserved. At that point, I was able to have at least 3 to 5 cm of esophagus into the abdomen. After I completely mobilized the esophagus from both the left and right judy and I had a good mobilization of the esophagus circumferentially, I closed the hernia defect with three interrupted #0 Surgidac sutures using the Endo Stitch device, one of which was placed posterior and two of which anterior to the esophagus. The stomach was then divided transversely with two Endo BILLIE-45 purple loads using the Fashiontrot stapler and loads. Every effort was made that the gastric sleeve had a tubular shape and an even caliber throughout. An endoscopy was performed before the first fire to ensure that I did not narrow the gastro- esophageal junction. During the process of firing the first staple, there was a clip that was used by the previous surgeon and it was not visible, that was within the stapler and slowed down significantly the cutting process. Once the sleeve resection was completed, the staple line near the GE junction of the gastric sleeve was reinforced with Hemoclips. The more proximal staple line in which the clip had interfered with the resection process, was reinforced with several interrupted 2.0 Ethibond sutures incorporating into the repair the nearby omentum as part of the gastropexy in an effort to reinforce the staple line closure. The resected stomach was retrieved without difficulty from the Andrew port. A gastropexy was then performed in order to prevent postoperative GERD and partial gastric volvulus. Several interrupted 2.0 Surgidac sutures were placed between the sleeve's staple line and the previously divided greater omentum and gastro-colic ligament using the Endo-Stitch device. An upper endoscopy was performed. There was no narrowing at the GE junction. The scope was easily advanced all the way to the pylorus which was clearly visualized. There was no narrowing anywhere and the sleeve's caliber was even throughout. The sleeve's staple line was inspected and there was no evidence of ischemia, bleeding or dehiscence. At that point the gastroscope was withdrawn from the patient?s mouth while we were decompressing the bowel and the stomach from any remaining air. I looked into the lesser sac to see how the sleeve was situating and it was situating well. There was no bleeding from the staple line, spleen, or short gastric vessels. A Elder drain was placed near the new staple line that I created and was secured in place with a Nylon suture. The Mediflex retractor was removed, and the undersurface of the liver was inspected and there was no bleeding. The patient was placed in supine position. I closed the fascial defect of the 12 mm port site with a figure of eight #1 Polysorb suture. Then 30cc Ropivacaine plain with 10 mg of Dexamethasone were used to infiltrate the fascial closure as well as all skin incisions. A total of 7 ml of Zynrelef was used at the Andrew port site. At this point, the abdomen was deflated, all ports were removed under direct vision, and no bleeding was noted from any of the port sites. The skin incisions were irrigated with saline and were closed with 4-0 absorbable monofilament sutures. Steri-Strips and OpSites were used to cover all incisions. The patient was extubated and was transferred in stable condition to the recovery room for further care. I was present and performed all breaux parts of the procedure. Mr. Snow was the assistant passenger locomotive engineer. There were no residents to assist with this case. Charbel Solis MD, PhD, FACS Surgeon: Miguel Angel Solis MD Anesthesia: GETA, local and other (TAP block and 7ml Zynrelef) Was an Leveling Machine Operator used for this Procedure?: Yes Leveling Machine Operator: Zhang Snow Estimated blood loss (mL): 10 IV fluids (mL): 2,900 Urine output (mL): 450 Pathology: other (Stomach) Condition: stable Disposition: PACU
[2024-01-28 14:09] LABS: Anion Gap 17 (12-20); Blood Urea Nitrogen 9 mg/dL (9-16); Calcium 8.4 mg/dL (8.4-10.2); Carbon Dioxide 18 mmol/L (22-29); Chloride 108 mmol/L (96-108); Creatinine Clr Calc Pharmacy 118.8; Estimated Glomerular Filt Rate > 60; Glucose Random 160 mg/dL (60-115); Potassium 3.9 mmol/L (3.3-5.1); Sodium 139 mmol/L (135-145)
--- NOTE | 2024-01-28 14:21 | P.PNGS_ITS ---
Subjective Subjective Date of Service: 01/29/24 Interval history: Feels well. Mild incisional pain. She is tolerating phase 1 bariatric diet Physical Exam 2 Vital Signs: Vital Signs: Last Vital Signs Temp 97.3 F 01/28/24 13:42 Pulse 73 01/28/24 13:42 Resp 12 01/28/24 13:42 BP 116/68 01/28/24 13:42 Pulse Ox 94 01/28/24 13:42 O2 Del Method Room Air 01/28/24 13:42 O2 Flow Rate 2 01/28/24 12:30 BMI result Body Mass Index 39.0 GI: Inspection: Yes normal to inspection, Yes incision (clean, dry and intact), Yes obesity and No other (Elder drain with serosanguinous fluid) P alpation (GI): Soft to palpation Extrem: Right lower extremity: normal to inspection (no calf tenderness) L eft lower extremity: normal to inspection (no calf tenderness) Objective Data Active Medications Famotidine (Famotidine/Pf 20 Mg/2 Ml Vial) 20 mg IVPUSH BID ANGELITA Hydromorphone HCl (Hydromorphone Hcl 0.5 Mg/0.5 Ml Syringe) 0.25 mg IVPUSH Q4H PRN; Protocol PRN Reason: Pain, Moderate(Pain Scale 4-6) Lactated Ringer's (Lr) 1,000 mls @ 100 mls/hr IVCONT .Q10H [facility] Last Admin: 01/28/24 13:26 Dose: 100 mls/hr Documented By: NAWAF Cefazolin Sodium/Dextrose (Ancef) 2 gm in 50 mls @ 100 mls/hr IV POSTOP ONE Stop: 01/28/24 14:29 Last Infusion: 01/28/24 14:00 Dose: Infused Documented By: DEYSI Acetaminophen (Ofirmev) 1,000 mg in 100 mls @ 16.7 mls/hr IV .Q6H ANGELITA Levothyroxine Sodium (Levothyroxine Sodium 50 Mcg Tablet) 50 mcg PO DAILY@0600 [facility] Levothyroxine Sodium (Levothyroxine Sodium 200 Mcg Tablet) 200 mcg PO DAILY@0600 [facility] Metoclopramide HCl (Metoclopramide Hcl 10 Mg/2 Ml Vial) 10 mg IVPUSH Q6H PRN PRN Reason: Nausea no reflief from zofran Ondansetron HCl (Ondansetron Hcl 4 Mg/2 Ml Vial) 4 mg IVPUSH Q8H PRN PRN Reason: Nausea Sodium Chloride (0.9 % Sodium Chloride Flush 3 Ml Syringe) 3 ml IVFLUSH QSHIFT ANGELITA Labs 01/29/24 05:59 01/29/24 05:59 Labs: Laboratory Results - last 24 hr 01/28/24 01/28/24 06:11 13:40 Anion Gap 17 Estim Creat Clear Calc 118.8 Estimated GFR > 60 Random Glucose 160 H Calcium 8.4 Urine Test NEGATIVE Procedures Date of Service Date of Service: 01/29/24 Progress Note: A&P Assessment and plan (1) Morbid obesity: Status: Acute Assessment and Plan: s/p laparoscopic sleeve gastrectomy revision, lysis of adhesions, diaphragmatic hernia repair and gastropexy Doing well Will check am labs and if OK the patient will be discharged home (2) Asthma: Status: Acute (3) Hypothyroidism: Status: Acute (4) Diaphragmatic hernia: Status: Acute (5) Intra-abdominal adhesions: Status: Acute (6) S/P gastric sleeve procedure: Status: Acute (7) S/P repair of paraesophageal hernia: Status: Acute (8) GERD (gastroesophageal reflux disease): Status: Acute Time Spent With Patient Time: Total time managing care of this patient today ____ minutes. Quality Stroke Does the patient have a stroke diagnosis?: No VTE Prior VTE?: No VTE Risk Level:: Surgical - moderate VTE Device Contraindication: N/A - Device Ordered VTE Drug Contraindication: Treatment Not Indicated
[2024-01-28] MEDS: Acetaminophen 1,000 MG/100 ML PIGGYBACK 16.7 MG IV ×2 (17:03→22:48)
--- NOTE | 2024-01-28 17:24 | PC.NURSE ---
Pt was able to ambulate to bathroom and void 400ml of clear yellow urine. Pt able to ambulate in hallway independently. Pt tolerating phase 1 diet.
[2024-01-28] MEDS: 0.9 % Sodium Chloride Flush 3 ML SYRINGE IVFLUSH (20:21)
[2024-01-28] MEDS: Famotidine/PF 20 MG/2 ML VIAL IVPUSH (20:21)
[2024-01-29 04:00] VITALS: BP 118/72; PULSE 97; RESP 18; TEMP 36.4; O2SAT 99
[2024-01-29] MEDS: Acetaminophen 1,000 MG/100 ML PIGGYBACK 16.7 MG IV (04:51)
[2024-01-29] MEDS: Levothyroxine Sodium 200 MCG TABLET PO (06:00)
[2024-01-29 06:54] LABS: MANUAL DIFF FLAG NO
[2024-01-29 07:12] LABS: Basophils Percent Auto 0.1 % (0-2); Hemoglobin 12.6 g/dl (12.0-16.0); Imm Gran Abs Auto 0.02 X10*3/uL (0.00-0.03); Imm Gran Pct Auto 0.3 % (0.0-0.4); Lymphocytes Absolute Auto 1.1 X10*3/uL (1.2-4.9); Mean Corpuscular HGB Conc 34.1 g/dl (31.0-35.0); Mean Corpuscular Hemoglobin 29.2 pg (27.0-33.0); Mean Corpuscular Volume 85.8 fL (80.0-98.0); Monocytes Absolute Auto 0.8 X10*3/uL (0.1-1.2); Neutrophils Absolute Auto 5.7 x10*3/uL (2.0-8.3); Neutrophils Percent Auto 74.6 % (45-73); Platelet Count 139 X10*3/uL (160-400); Red Blood Count 4.31 X10*6/uL (4.20-5.50); Red Cell Distribution Width 14.2 % (11.0-16.0); White Blood Count 7.6 X10*3/uL (4.8-10.8)
[2024-01-29 07:21] LABS: Anion Gap 15 (12-20); Blood Urea Nitrogen 5 mg/dL (9-16); Calcium 8.5 mg/dL (8.4-10.2); Carbon Dioxide 19 mmol/L (22-29); Chloride 109 mmol/L (96-108); Creatinine Clr Calc Pharmacy 136.2; Estimated Glomerular Filt Rate > 60; Glucose Random 84 mg/dL (60-115); Potassium 3.8 mmol/L (3.3-5.1); Sodium 139 mmol/L (135-145)
[2024-01-29] MEDS: Famotidine/PF 20 MG/2 ML VIAL IVPUSH (07:41)
[2024-01-29 07:47] VITALS: BP 137/80; PULSE 94; RESP 16; TEMP 36.5; O2SAT 99
--- NOTE | 2024-01-29 09:11 | MHC.CM.PN ---
PT REPORTS SHE LIVES WITH HER PARENTS AND 22 MONTH OLD BABY SHE IS INDEPENDENT WITH CARE, HAS NO SERVICES AND NO DME PT DECLINES TO COMPLETE A HCP PCP: HOWARD EASLEY NEGATIVE THRIVE ASSESSMENT PT WILL DC HOME TODAY WITH NO SERVICES VIA PRIVATE TRANSPORT
--- NOTE | 2024-01-29 10:33 | HO.POSTANES ---
Post Anesthesia Evaluation Post Anesthesia Evaluation Date of Service: 01/28/24 Vital Signs: Vital Signs Temp Pulse Resp BP Pulse Ox O2 Del Method 01/29/24 07:47 97.7 F 94 16 137/80 99 Room Air 01/29/24 04:00 97.5 F 97 18 118/72 99 Room Air Anesthesia: General Endotracheal-GETA Mental Status: Awake Pain Control: Satisfactory Nausea/Vomiting: None Hydration: Adequate Anesthesia-Related Issues: No Anes. Related Issues
== END 2024-01-29 10:50 | disposition home or self-care (01) | DRG 403 ==
LOC: HO.SSSA 06:07 → HO.S3 12:05
PROVIDERS: Nurse Practitioner; Physician Assistant Surgical; Admitting Provider Surgery; PCP Internal Medicine; Visit Provider Surgery
PROC: 0DB64Z3 Excision of Stomach, Percutaneous Endoscopic Approach, Vertical (ICD-10-PCS; principal; 2024-01-28 07:30)
DX: E66.01 Morbid (severe) obesity due to excess calories (principal); K44.0 Diaphragmatic hernia with obstruction, without gangrene; E89.0 Postprocedural hypothyroidism; Z68.41 Body mass index [BMI] 40.0-44.9, adult; K21.9 Gastro-esophageal reflux disease without esophagitis; J45.909 Unspecified asthma, uncomplicated; K66.0 Peritoneal adhesions (postprocedural) (postinfection); Z98.84 Bariatric surgery status; Z79.890 Hormone replacement therapy; Z85.850 Personal history of malignant neoplasm of thyroid; Z79.899 Other long term (current) drug therapy
CPT/HCPCS: 36415; 80048; 80053; 80061; 81025; 83036; 83525; 84439; 84443; 85014; 85018; 85025; 85610; 85730; 86140; 86850; 86900; 86901; 88307; 88342; A4649; C9088; C9145; J0131; J0690; J1100; J1170; J2250; J2405; J2704; J2795; J3010; J7120

== ENCOUNTER → 2024-01-28 06:00 | Outpatient (BNV) | payer OTHER, SELFPAY | PROVIDERS: Admitting Provider Surgery; PCP Internal Medicine; Visit Provider Surgery | DX: E66.01 Morbid (severe) obesity due to excess calories (principal); Z68.41 Body mass index [BMI] 40.0-44.9, adult; Z90.3 Acquired absence of stomach [part of]; Z98.84 Bariatric surgery status; K44.9 Diaphragmatic hernia without obstruction or gangrene; K66.0 Peritoneal adhesions (postprocedural) (postinfection) | CPT/HCPCS: 43281; 43659; 43775; 99024; 99499 ==

== ENCOUNTER 2024-02-03 10:09 | Outpatient (AMB) | payer OTHER, SELFPAY ==
--- NOTE | 2024-02-03 10:46 | A.OFFVIS_ITS ---
VS Expanded 02/03/24 11:05 BP 126/75 Blood Pressure Location Rt brachial Blood Pressure Position Sitting Pulse 93 Pulse Source Pulse Oximeter Temp 98.7 F Temperature Source Temporal Artery Scan Pulse Oximetry 100 Oxygen Delivery Method Room Air Height 5 ft 1 in Weight 199 lb 9.6 oz BMI 37.7 Body Fat % 44.9 Body Fat Mass 89.6 Fat Free Mass 110.0 Visceral Fat Rating 12.0 Body Water % 39.3 Body Water Mass 78.4 Muscle Mass/Score 104.4 Basal Metabolic Rate/Score 1,552 Intake Visit Reasons: (OV) PO LSG 01/28/24 Allergies drospirenone [From SHAQ 28] Allergy (Unknown, Verified 02/03/24 10:57) SWELLING ethinyl estradiol [From SHAQ 28] Allergy (Unknown, Verified 02/03/24 10:57) SWELLING naproxen [From NAPROSYN] Allergy (Unknown, Verified 02/03/24 10:57) SWELLING sulfamethoxazole [From BACTRIM] Allergy (Unknown, Verified 02/03/24 10:57) RASH trimethoprim [From BACTRIM] Allergy (Unknown, Verified 02/03/24 10:57) RASH adhesive tape Allergy (Unknown, Uncoded 01/22/24 15:38) Unknown HPI Comments Details: Patient is a pleasant 43-year-old female who returns to the office today in follow-up. She is status post gastric banding with subsequent conversion to sleeve gastrectomy and revision of sleeve gastrectomy with hiatal hernia repair performed on 01/28/2024. A drain was left in place and she has had approximately 25 mL of serous fluid daily. She is moved her bowels and is tolerating 3 celebrate 4 in 1 shakes with 1 scoop each. [facility] Medical History (Updated 01/30/24 @ 00:02 by Shalom Manriquez) Vitamin D deficiency Hypothyroidism Thyroid cancer Surgical History (Updated 02/03/24 @ 10:58 by Arabella Man CMA) S/P repair of paraesophageal hernia S/P gastric sleeve procedure Hx of section Hx of dilation and curettage Hx of thyroidectomy Family History Father Asthma Hypertension Mother Hypertension Social History Household Members: Family Housing: House Are you a primary care management specialist to a significant other at home: No Do you presently have visiting nurse or other home services: No Alcohol intake: current Alcohol intake frequency: does not drink Patient Tobacco Use Status: Never used Tobacco service: No Physical Exam Vital Signs: Last Vital Signs Temp 98.7 F 02/03/24 11:05 Pulse 93 02/03/24 11:05 BP 126/75 02/03/24 11:05 Pulse Ox 100 02/03/24 11:05 Oxygen Delivery Method Room Air 02/03/24 11:05 BMI result Body Mass Index 37.7 GI Inspection: Yes incision (Healing nicely. Approximately 20 mL of serous fluid in the bulb) Assessment & Plan Assessment & Plan (1) S/P repair of paraesophageal hernia: Code(s): Z98.890 - Other specified postprocedural states; Z87.19 - Personal history of other diseases of the digestive system Category: Surgical Plan: Patient's weight on presentation on 02/1923 was 230.6 lb with a BMI of 43.6. Operative weight was 212.5 lb equaling an 18.1 lb weight loss or 7.8% total body weight loss. Continue current meal plan. Return to clinic on Thursday for further evaluation and possible drain removal.
[2024-02-03 11:05] VITALS: BP 126/75; PULSE 93; TEMP 37.1; O2SAT 100; BMI 37.7
== END 2024-02-03 11:15 | disposition home or self-care (01) ==
PROVIDERS: PCP Internal Medicine; Visit Provider Physician Assistant Surgical
DX: Z98.890 Other specified postprocedural states (principal); Z87.19 Personal history of other diseases of the digestive system
CPT/HCPCS: 99024

== ENCOUNTER → 2024-02-03 10:09 | Outpatient (BNVA) | payer OTHER, SELFPAY | PROVIDERS: PCP Internal Medicine; Visit Provider Physician Assistant Surgical | DX: Z48.815 Encounter for surgical aftercare following surgery on the digestive system (principal); Z98.84 Bariatric surgery status | CPT/HCPCS: 99212 ==

== ENCOUNTER 2024-02-05 09:18 | Outpatient (AMB) | payer OTHER, SELFPAY ==
--- NOTE | 2024-02-05 09:21 | MHC.OFFVISWM ---
VS Expanded 02/05/24 09:32 BP 129/84 Blood Pressure Location Rt brachial Blood Pressure Position Sitting Pulse 104 H Pulse Source Pulse Oximeter Temp 96.8 F Temperature Source Tympanic Pulse Oximetry 99 Oxygen Delivery Method Room Air Intake Visit Reasons: (OV) PO LSG 01/28/24 Allergies drospirenone [From SHAQ 28] Allergy (Unknown, Verified 02/05/24 09:33) SWELLING ethinyl estradiol [From SHAQ 28] Allergy (Unknown, Verified 02/05/24 09:33) SWELLING naproxen [From NAPROSYN] Allergy (Unknown, Verified 02/05/24 09:33) SWELLING sulfamethoxazole [From BACTRIM] Allergy (Unknown, Verified 02/05/24 09:33) RASH trimethoprim [From BACTRIM] Allergy (Unknown, Verified 02/05/24 09:33) RASH adhesive tape Allergy (Unknown, Uncoded 02/05/24 09:33) Unknown HPI Comments Details: Patient is a pleasant 43-year-old female who returns to the office today in follow-up. She is approximately 10 days status post revision of previous sleeve gastrectomy as well as hiatal hernia repair. She had a drain left in place which has been draining approximately 20-25 mL serosanguineous fluid. She has no complaints of pain and is tolerating her meal plan. [facility] Medical History (Updated 01/30/24 @ 00:02 by Shalom Manriquez) Vitamin D deficiency Hypothyroidism Thyroid cancer Surgical History (Updated 02/03/24 @ 10:58 by Arabella Man CMA) S/P repair of paraesophageal hernia S/P gastric sleeve procedure Hx of section Hx of dilation and curettage Hx of thyroidectomy Family History Father Asthma Hypertension Mother Hypertension Social History Household Members: Family Housing: House Are you a primary foster care therapist to a significant other at home: No Do you presently have visiting nurse or other home services: No Alcohol intake: current Alcohol intake frequency: does not drink Patient Tobacco Use Status: Never used Tobacco service: No Physical Exam Vital Signs: Last Vital Signs Temp 96.8 F 02/05/24 09:32 Pulse 104 H 05/31/24 09:32 BP 129/84 02/05/24 09:32 Pulse Ox 99 02/05/24 09:32 Oxygen Delivery Method Room Air 02/05/24 09:32 GI Inspection: Yes incision (Incisions healing nicely.) Assessment & Plan Assessment & Plan (1) S/P repair of paraesophageal hernia: Code(s): Z98.890 - Other specified postprocedural states; Z87.19 - Personal history of other diseases of the digestive system Category: Surgical Plan: Overall doing well. Drain was removed without difficulty. She was instructed to keep this clean, dry, covered. She may shower on Thursday. No submersion into a pool or bath. Continue wearing the abdominal binder for 2 weeks. Continue to follow meal plan.
[2024-02-05 09:32] VITALS: BP 129/84; PULSE 104; TEMP 36; O2SAT 99
== END 2024-02-05 09:49 | disposition home or self-care (01) ==
PROVIDERS: PCP Internal Medicine; Visit Provider Physician Assistant Surgical
DX: Z98.890 Other specified postprocedural states (principal); Z87.19 Personal history of other diseases of the digestive system
CPT/HCPCS: 99024

== ENCOUNTER → 2024-02-05 09:18 | Outpatient (BNVA) | payer OTHER, SELFPAY | PROVIDERS: PCP Internal Medicine; Visit Provider Physician Assistant Surgical | DX: Z48.815 Encounter for surgical aftercare following surgery on the digestive system (principal); Z98.890 Other specified postprocedural states | CPT/HCPCS: 99212 ==

== ENCOUNTER 2024-02-26 13:44 | Outpatient (AMB) | payer OTHER, SELFPAY ==
--- NOTE | 2024-02-26 08:46 | MHC.OFFVISWM ---
VS Expanded 02/26/24 08:47 Height 5 ft 1 in Weight 190 lb 3.2 oz BMI 35.9 Body Fat % 30.8 Body Fat Mass 58.6 Fat Free Mass 131.6 Visceral Fat Rating 17 Body Water % 47.5 Body Water Mass 90.4 Muscle Mass/Score 123.6 Basal Metabolic Rate/Score 1,672 Intake Visit Reasons: (tV) PO LSG 01/28/24 Applied Behavior Science Specialist Required: No Allergies drospirenone [From SHAQ 28] Allergy (Unknown, Verified 02/05/24 09:33) SWELLING ethinyl estradiol [From SHAQ 28] Allergy (Unknown, Verified 02/05/24 09:33) SWELLING naproxen [From NAPROSYN] Allergy (Unknown, Verified 02/05/24 09:33) SWELLING sulfamethoxazole [From BACTRIM] Allergy (Unknown, Verified 02/05/24 09:33) RASH trimethoprim [From BACTRIM] Allergy (Unknown, Verified 02/05/24 09:33) RASH adhesive tape Allergy (Unknown, Uncoded 02/05/24 09:33) Unknown Medication List - Last Reconciled 02/26/24 by INDIGO Salas docusate sodium (Colace) 100 mg PO BID levothyroxine (Synthroid) 200 mcg PO DAILY@0600 pantoprazole 40 mg PO DAILY sucralfate 10 mL PO BID HPI Comments Details: Patient is a pleasant 43-year-old female who returns to the office today in follow-up. She is status post gastric banding (2012) with subsequent conversion to sleeve gastrectomy (2018 -[facility] - Dr Jay) and then revision of sleeve gastrectomy with hiatal hernia repair performed on 01/28/[address] Solis. Weight today is 190.2 lb with a BMI of 36.4. She states she is doing well. No complaints of pain Meal plan: Celebrate 4 in 1 2 scoops 8-10, 11-1, w 8 oz water Celebrate rebuild 2-4 Celebrate protein bar 5-8 Drinking 64 oz water Exercise plan: Treadmill 4-5 x per week, 250-300 calories, speed 4, incline 5 PFS Medical History (Updated 02/19/24 @ 17:05 by Miguel Angel Solis MD) Vitamin D deficiency Hypothyroidism Thyroid cancer Surgical History (Updated 02/03/24 @ 10:58 by Arabella Man CMA) S/P repair of paraesophageal hernia S/P gastric sleeve procedure Hx of section Hx of dilation and curettage Hx of thyroidectomy Family History Father Asthma Hypertension Mother Hypertension Social History Household Members: Family Housing: House Are you a primary primary care nurse practitioner to a significant other at home: No Do you presently have visiting nurse or other home services: No Alcohol intake: current Alcohol intake frequency: does not drink Patient Tobacco Use Status: Never used Tobacco service: No Physical Exam Vital Signs: BMI result Body Mass Index 35.9 Telehealth Telehealth Telehealth Platform: Telephone Location of provider rendering services: practice address Location of patient: address on file Patient Identification confirmed using: Name, : Yes Telehealth method: voice only Patient verbally consented to treatment: Yes Patient verbally consented to billing insurance company: Yes Patient informed of any privacy concerns related to visit: Yes Minutes spent on Phone/Video with Pt.: 15 Assessment & Plan Assessment & Plan (1) S/P repair of paraesophageal hernia: Code(s): Z98.890 - Other specified postprocedural states; Z87.19 - Personal history of other diseases of the digestive system Category: Surgical Plan: Recommend changing her exercise routine to include a goal of 2000 calories burn per week. Decreased speed to 3.6, increase in from 4 to 10, increasing by 1 every 3 minutes until max then decreasing every 3 minutes then increasing again until goal of 400 calories burned in a 5 day gym routine. Continue her current meal plan. Add meds for constipation. Continue fiber by way of Metamucil, 1 tbsp in 8 oz of water daily. Return to the office in 4 weeks. Encouraged to text weekly with her weight and with any questions or concerns. (2) Constipation: Code(s): K59.00 - Constipation, unspecified Category: Medical Plan: senna hs dulcolax Medications: New sennosides (senna) 17.2 mg (2 x 8.6 mg) PO BEDTIME PRN 90 tabs 2RF constipation 90 days bisacodyl (Dulcolax (bisacodyl)) 10 mg [place] DAILY PRN 12 ea 0RF constipation
[2024-02-26 08:47] VITALS: BMI 35.9
== END 2024-02-26 14:24 | disposition home or self-care (01) ==
LOC: HO.HBS 13:44
PROVIDERS: PCP Internal Medicine; Visit Provider Physician Assistant Surgical
DX: Z98.890 Other specified postprocedural states (principal); Z87.19 Personal history of other diseases of the digestive system; K59.00 Constipation, unspecified
CPT/HCPCS: 99024

== ENCOUNTER → 2024-02-26 13:44 | Outpatient (BNVA) | payer OTHER, SELFPAY | PROVIDERS: PCP Internal Medicine; Visit Provider Physician Assistant Surgical | DX: Z48.815 Encounter for surgical aftercare following surgery on the digestive system (principal); K59.00 Constipation, unspecified; Z98.890 Other specified postprocedural states; Z87.19 Personal history of other diseases of the digestive system | CPT/HCPCS: 99212 ==

== ENCOUNTER 2024-04-01 13:59 | Outpatient (AMB) | payer OTHER, SELFPAY ==
[2024-04-01 08:33] VITALS: BMI 33.5
--- NOTE | 2024-04-01 08:33 | A.OFFVIS_ITS ---
VS Expanded 04/01/24 08:33 Height 5 ft 1 in Weight 177 lb 6.4 oz BMI 33.5 Body Fat % 28.5 Body Fat Mass 50.6 Fat Free Mass 126.8 Visceral Fat Rating 15 Body Water % 49.1 Body Water Mass 87 Muscle Mass/Score 119.2 Basal Metabolic Rate/Score 1,615 Intake Visit Reasons: (tV) PO LSG 01/28/24 Fish Hatchery Specialist Required: No Allergies drospirenone [From SHAQ 28] Allergy (Unknown, Verified 02/05/24 09:33) SWELLING ethinyl estradiol [From SHAQ 28] Allergy (Unknown, Verified 02/05/24 09:33) SWELLING naproxen [From NAPROSYN] Allergy (Unknown, Verified 02/05/24 09:33) SWELLING sulfamethoxazole [From BACTRIM] Allergy (Unknown, Verified 02/05/24 09:33) RASH trimethoprim [From BACTRIM] Allergy (Unknown, Verified 02/05/24 09:33) RASH adhesive tape Allergy (Unknown, Uncoded 02/05/24 09:33) Unknown Medication List - Last Reconciled 04/01/24 by INDIGO Salas bisacodyl (Dulcolax (bisacodyl)) 10 mg ND DAILY PRN docusate sodium (Colace) 100 mg PO BID pantoprazole 40 mg PO DAILY sennosides (senna) 17.2 mg (2 x 8.6 mg) PO BEDTIME PRN 90 days sucralfate 10 mL PO BID Synthroid (levothyroxine) 50 mcg PO DAILY NS HPI Comments Details: Patient is a pleasant 43-year-old female who returns to the office today in follow-up. She is status post gastric banding (2012) with subsequent conversion to sleeve gastrectomy (2017 -[facility] - Dr Jay) and then revision of sleeve gastrectomy with hiatal hernia repair performed on 01/28/[address] Solis. Returns to the office for 2 month post op appointment. Weight today is 177.4 lb with a BMI of 33.5. She states she is doing well. No complaints of pain. Meal plan: Celebrate 4 in 1, 1 scoops 8-10, 11-1, w 8 oz water 2 scoops 2-4 Celebrate protein bar 5-8 Drinking 64 oz water Exercise plan: Treadmill 5 x per week, 350-400 calories, speed 4, incline 5 PFSH Medical History (Updated 02/19/24 @ 17:05 by Miguel Angel Solis MD) Vitamin D deficiency Hypothyroidism Thyroid cancer Surgical History (Updated 02/03/24 @ 10:58 by Arabella Man CMA) S/P repair of paraesophageal hernia S/P gastric sleeve procedure Hx of section Hx of dilation and curettage Hx of thyroidectomy Family History Father Asthma Hypertension Mother Hypertension Social History Household Members: Family Housing: House Are you a primary healthcare risk control consultant to a significant other at home: No Do you presently have visiting nurse or other home services: No Alcohol intake: current Alcohol intake frequency: does not drink Patient Tobacco Use Status: Never used Tobacco service: No Telehealth Telehealth Telehealth Platform: Telephone Location of provider rendering services: practice address Location of patient: address on file Patient Identification confirmed using: Name, : Yes Telehealth method: voice only Patient verbally consented to treatment: Yes Patient verbally consented to billing insurance company: Yes Patient informed of any privacy concerns related to visit: Yes Minutes spent on Phone/Video with Pt.: 15 Assessment & Plan Assessment & Plan (1) S/P repair of paraesophageal hernia: Code(s): Z98.890 - Other specified postprocedural states; Z87.19 - Personal history of other diseases of the digestive system Category: Surgical Plan: Overall, patient is doing well. Recommend that she increase her calories burned at the gym, 400-450 daily. She will continue her current meal plan for another month. We will have her return to the office then. Encouraged to text weekly with weights and with any questions or concerns.
== END 2024-04-01 14:15 | disposition home or self-care (01) ==
LOC: HO.HBS 13:59
PROVIDERS: PCP Internal Medicine; Visit Provider Physician Assistant Surgical
DX: Z98.890 Other specified postprocedural states (principal); Z87.19 Personal history of other diseases of the digestive system
CPT/HCPCS: 99024

== ENCOUNTER → 2024-04-01 13:59 | Outpatient (BNVA) | payer OTHER, SELFPAY | PROVIDERS: PCP Internal Medicine; Visit Provider Physician Assistant Surgical | DX: E66.9 Obesity, unspecified (principal); Z68.33 Body mass index [BMI] 33.0-33.9, adult; Z98.84 Bariatric surgery status; Z48.815 Encounter for surgical aftercare following surgery on the digestive system | CPT/HCPCS: 99212 ==

== ENCOUNTER 2024-04-08 06:04 | Outpatient (REF) | payer OTHER, SELFPAY ==
[2024-04-08 08:10] LABS: Free T4 (Free Thyroxine) 1.04 ng/dL (0.71-1.85); Thyroid Stimulating Hormone 2.35 uIU/mL (0.32-4.0)
== END 2024-04-08 06:05 | disposition home or self-care (01) ==
LOC: HO.LAB 06:04
PROVIDERS: PCP Internal Medicine; Visit Provider Internal Medicine Endocrinology, Diabetes & Metabolism
DX: C73 Malignant neoplasm of thyroid gland (principal)
CPT/HCPCS: 36415; 84439; 84443

== ENCOUNTER 2024-05-03 14:39 | Outpatient (AMB) | payer OTHER, SELFPAY ==
--- NOTE | 2024-05-03 12:57 | A.OFFVIS_ITS ---
VS Expanded 05/03/24 12:59 Height 5 ft 1 in Weight 167 lb 2 oz BMI 31.6 Body Fat % 26.7 Body Fat Mass 44.6 Fat Free Mass 122.4 Visceral Fat Rating 14 Body Water % 50.3 Body Water Mass 84 Muscle Mass/Score 115.2 Basal Metabolic Rate/Score 1,568 Intake Visit Reasons: (tV) PO LSG 01/28/24 Public Affairs Manager Required: No Allergies drospirenone [From SHAQ 28] Allergy (Unknown, Verified 02/05/24 09:33) SWELLING ethinyl estradiol [From SHAQ 28] Allergy (Unknown, Verified 02/05/24 09:33) SWELLING naproxen [From NAPROSYN] Allergy (Unknown, Verified 02/05/24 09:33) SWELLING sulfamethoxazole [From BACTRIM] Allergy (Unknown, Verified 02/05/24 09:33) RASH trimethoprim [From BACTRIM] Allergy (Unknown, Verified 02/05/24 09:33) RASH adhesive tape Allergy (Unknown, Uncoded 02/05/24 09:33) Unknown Medication List - Last Reconciled 05/03/24 by INDIGO Salas bisacodyl (Dulcolax (bisacodyl)) 10 mg DE DAILY PRN docusate sodium (Colace) 100 mg PO BID sennosides (senna) 17.2 mg (2 x 8.6 mg) PO BEDTIME PRN 90 days Synthroid (levothyroxine) 50 mcg PO DAILY NS HPI Comments Details: Patient is a pleasant 44-year-old female who returns to the office today in follow-up. She is status post gastric banding (2012) with subsequent conversion to sleeve gastrectomy (2017 -[facility] - Dr Jay) and then revision of sleeve gastrectomy with hiatal hernia repair performed on 01/28/[address] Solis. Returns to the office for 3 month post op appointment. Weight today is 167.2 lb with a BMI of 31.6. Op weight was 206.4 pounds. She has lost 39.2 pounds or 18.9% TBWl She states she is doing well. No complaints of pain. Patient is satisfied with her meal plan and would like to continue. Meal plan: Celebrate 4 in 1, 1 scoops 8-10, 11-1, w 8 oz water 2 scoops 2-4 Celebrate protein bar 5-8 Drinking 64 oz water Exercise plan: Treadmill 5 x per week, 300 calories, speed 4, incline 5 bike or stairmaster, 100-150 calories PFSH Medical History Vitamin D deficiency Hypothyroidism Thyroid cancer Surgical History S/P repair of paraesophageal hernia S/P gastric sleeve procedure Hx of section Hx of dilation and curettage Hx of thyroidectomy Family History Father Asthma Hypertension Mother Hypertension Other S/P repair of paraesophageal hernia Social History Household Members: Family Housing: House Are you a primary care mgr to a significant other at home: No Do you presently have visiting nurse or other home services: No Alcohol intake: current Alcohol intake frequency: does not drink Patient Tobacco Use Status: Never used Tobacco service: No Telehealth Telehealth Telehealth Platform: Telephone Location of provider rendering services: practice address Location of patient: address on file Patient Identification confirmed using: Name, : Yes Telehealth method: voice only Patient verbally consented to treatment: Yes Patient verbally consented to billing insurance company: Yes Patient informed of any privacy concerns related to visit: Yes Minutes spent on Phone/Video with Pt.: 12 Assessment & Plan Assessment & Plan (1) Obesity (BMI 30-39.9): Code(s): E66.9 - Obesity, unspecified Category: Medical Plan: Patient is making good progress. She is following the meal plan exactly. I did encourage her to increase her exercise as she is able. She wants to continue her current meal plan and not reintroduce food at this point. We will have her return to the office in approximately a month. She was encouraged to continue to text her weights weekly and with any questions or concerns.
[2024-05-03 12:59] VITALS: BMI 31.6
== END 2024-05-03 14:46 | disposition home or self-care (01) ==
LOC: HO.HBS 14:39
PROVIDERS: PCP Internal Medicine; Visit Provider Physician Assistant Surgical
DX: E66.9 Obesity, unspecified (principal); Z68.31 Body mass index [BMI] 31.0-31.9, adult
CPT/HCPCS: 99213

== ENCOUNTER → 2024-05-03 14:39 | Outpatient (BNVA) | payer OTHER, SELFPAY | PROVIDERS: PCP Internal Medicine; Visit Provider Physician Assistant Surgical | DX: K59.00 Constipation, unspecified (principal) ==

== ENCOUNTER 2024-05-11 15:56 | Outpatient (AMB) | payer OTHER, SELFPAY ==
--- NOTE | 2024-05-11 16:01 | MHC.OFFVIS ---
Vital Signs 05/11/24 16:02 BMI Reason not done Patient refused/unable BP 108/78 Blood Pressure Location Rt brachial Position Sitting Pulse 92 Pulse Source Pulse Oximeter Intake Visit Reasons: F/u-thyroid cancer-confirmed Intake Note: Patient present today for Thyroid Cancer follow up. Laboratory Analyst Required: No Accompanied by: Self / Same As Patient Allergies drospirenone [From SHAQ 28] Allergy (Unknown, Verified 05/11/24 16:03) SWELLING ethinyl estradiol [From SHAQ 28] Allergy (Unknown, Verified 05/11/24 16:03) SWELLING naproxen [From NAPROSYN] Allergy (Unknown, Verified 05/11/24 16:03) SWELLING sulfamethoxazole [From BACTRIM] Allergy (Unknown, Verified 05/11/24 16:03) RASH trimethoprim [From BACTRIM] Allergy (Unknown, Verified 05/11/24 16:03) RASH adhesive tape Allergy (Unknown, Uncoded 05/11/24 16:03) Unknown Medication List - Last Reconciled 05/11/24 by Rosas Lemon MD bisacodyl (Dulcolax (bisacodyl)) 10 mg [place] DAILY PRN docusate sodium (Colace) 100 mg PO BID sennosides (senna) 17.2 mg (2 x 8.6 mg) PO BEDTIME PRN 90 days Synthroid (levothyroxine) 50 mcg PO DAILY NS HPI Comments Details: 44 YO Female with PMHx 1.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 Review of records reveals that patient has a history of papillary thyroid cancer that was diagnosed in October of 2013. She is status post total thyroidectomy which was completed October of 2013 at [facility] in [place]. Pathology revealed a 1.6 x 1.2x 1.3 cm left-sided PTC with 5% of cells tall cell variant. There was additionally multifocal microscopic foci of PTC within the R lobe, but no perithyroidal extension was identified. This was stage 1, PT1PN0. Surgery was completed at [facility] in [place] and she later received I-131 ablation 35 millicurries at [facility] on 02/27/14. Her bread panner was Dr. Roque at that time. She later followed up with [facility] in December of 2017. Labs have revealed persistently elevated thyroglobulin antibodies. She did have a whole body scan completed 02/22/14 with report reading LEI uptake in the thyroid bed consistent with metastatic disease if this patient is status post complete thyroidectomy. No distant metastatic deposits are identified. She received her I131 remnant ablation with 35 millicurries just after this. She did have an ultrasound of the neck completed 10/05/2017 which did reveal multiple enlarged cervical lymph nodes. She does report that she had biopsy of 1 lymph node in the past and that this was negative for malignancy. We repeated thyrogen stimulated WBS 03/25/19 which revealed persistent uptake within the thyroid bed, and also faint uptake within the R neck concerning for lymph node mets. TSH checked at that time was 144.62, with TG level of 0.2, with positive TG antibodies of 5. She had US soft tissue head and neck 02/21/19 which revealed multiple bilateral enlarged lymph nodes, including a L level 3 complex appearing 1.9 cm lymph node. She did have FNA biopsy of the enlarged R level II, R level IV, R level V and L level III lymph nodes. All were negative for carcinoma. TG washout was negative in all but the R level II lymph node, where no TG washout was sent. She was poorly compliant with her thyroid hormone medicaton prior to our visit 03/21/2020. TSH was approximately 12 at that time. She was counseled on the importance of compliance and from 03/21/2020 she had been compliant with Levothyroxine 175 mcg PO daily. She notified me of 04/30/2020 and her dose of Levothyroxine was increased to 200 mcg PO daily. She reported good compliance with this. Labs 06/04/2020 reveal TSH of 0.22 with FT4 by dialysis of 2.1. Labs then repeated Oct 2020 revealed elevated FT4 and TT3, so her dose of Levothyroxine was decreased to 150 mcg PO daily, but then increased again to 175 mcg PO daily. She had thyrogen stimulated labs completed 11/21/2020 which revealed a TSH of 91.16 with a TG of 0.3 and TG antibodies of 6. She unfortunately suffered a miscarriage and then began fertility treatments. She was able to succesfully conceive, and now has a 5 week old healthy baby boy. Her dose of levothyroxine was increased to 175 mcg PO 5 days per week, with 2 tabs 2 days per week at the time of conception. She has elected to defer any further WBS or any I131 treatment until after childbearing is complete. She did undergo a repeat US of the head and neck 10/30/2020 which revealed persistent lymphadenopathy. This was repeated 05/21/2021 and revealed 3 abnormal appearing cervical lymph nodes, a R level IB 1.1 cm, R level IB 0.8 cm, and a R level IA 0.3 cm lymph node. She underwent FNA biopsy of her R level IB 1.1 cm cervical lymph node 06/05/2021 with no evidence of metastatic carcinoma identified. She had multiple additional enlarged lymph nodes noted bilaterally, but these all had normal morphology. She now has completed childbearing and has had a tubal ligation. She also has completed . She remains on levothyroxine (Synthroid) 200 mcg PO daily now. She underwent an I131 WBS 05/08/2023 with results revealing only physiologic uptake. TSH was >100. Stimulated TG levels are pending at this time. US Soft Tissue Head and Neck: 05/21/2021 FINDINGS: THYROID BED: Prior thyroidectomy. No residual thyroid tissue demonstrated in the thyroid bed. No cystic or solid nodules demonstrated in the thyroid bed. There are numerous normal-appearing lymph nodes seen bilaterally RIGHT NECK SOFT TISSUES: Scattered lymph nodes are present. Some appear normal with normal fatty clefts and smooth margins without cortical thickening or lobulation. A few are abnormal and will be listed. The largest nodes are as follows: Level 3: 2.2 x 0.6 x 0.6 cm.? Normal nicole architecture Level 3: 1.9 x 0.7 x 1.4 cm.? Normal nicole architecture. Cortical thickness of 2.5 mm. There is an abnormal right level 1B lymph node that was not previously seen measuring 5 x 5 x 5 mm in size. It is rounded in appearance without fatty hilum identified. There is an abnormal lymph node seen within level 1B measuring 1.1 x 0.5 x 0.9 cm in size with a nodular cortex. There is normal fatty cleft present and no cortical thickening. There is an abnormal lymph node seen at level 1B which is essentially stable in size to previous study measuring 8 x 6 x 8 mm in size with some cortical nodularity but without significant change from prior study. Fatty hilum present. There is an abnormal-appearing lymph node level IA measuring 3 x 2 x 3 mm in size which is smaller than on prior study where it measured 5 x 4 x 5 mm in size. LEFT NECK SOFT TISSUES: Scattered architecturally normal nodes are present. The nodes show normal fatty hilus, normal cortical thickness, and no cystic change or calcification. No abnormal color flow. The largest nodes are as follows: Level 3: 1.1 x 0.3 x 0.8 cm.? Normal nicole architecture. This was not noted on previous study. Level 3: 1.3 x 0.5 x 0.6 cm.? Normal nicole architecture. This has enlarged and previously was 1.3 x 0.5 x 0.6 cm in size. Level 1B: 1.5 x 0.5 x 1.2 cm in size compared to previous study where it measured 1.2 x 0.6 x 0.9 cm in size. Normal nicole architecture. There are 3 other lymph nodes that were not seen on prior study: One within level 2 measuring 5 x 2 x 5 mm in size. This has normal architecture. Another is in level 3 measuring 1.1 x 0.3 x 0.8 cm in size. This has normal architecture. The third is in segment 5A measuring 6 x 4 x 5 mm in size with normal architecture. Labs: Laboratory Tests 05/05/23 11:05 TSH > 100.00 H Free T4 < 0.42 L [facility] Medical History Vitamin D deficiency Hypothyroidism Thyroid cancer Surgical History S/P repair of paraesophageal hernia S/P gastric sleeve procedure Hx of section Hx of dilation and curettage Hx of thyroidectomy Family History Father Asthma Hypertension Mother Hypertension Other S/P repair of paraesophageal hernia Social History Household Members: Family Housing: House Are you a primary complex care nurse practitioner to a significant other at home: No Do you presently have visiting nurse or other home services: No Alcohol intake: current Alcohol intake frequency: does not drink Patient Tobacco Use Status: Never used Tobacco service: No Physical Exam Const Other: Healed scar status post thyroidectomy. 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 Recent thyroglobulin undetected with stimulation and total body scan did not show any evidence of avid disease in neck or elsewhere. She is currently being treated with Synthroid 200 mcg QD. She appears clinically and biochemically euthyroid. Recent neck ultrasound showed the absence of any abnormal lymph nodes Plan is to continue the current management. We will have patient follow-up with Dr. Ambriz in 6 months Medications: New Synthroid (levothyroxine) 200 mcg PO DAILY 30 tabs 5RF NS Discontinued Synthroid (levothyroxine) Discontinued Reason: Doctor's Order 50 mcg PO DAILY 90 tabs 1RF NS Coding Level of Care Code Est Pt Level 3 (49969) Diagnoses Thyroid cancer C73
[2024-05-11 16:02] VITALS: BP 108/78; PULSE 92
== END 2024-05-11 16:13 | disposition home or self-care (01) ==
PROVIDERS: PCP Internal Medicine; Visit Provider Internal Medicine Endocrinology, Diabetes & Metabolism
DX: C73 Malignant neoplasm of thyroid gland (principal)
CPT/HCPCS: 99213

== ENCOUNTER → 2024-05-11 15:56 | Outpatient (BNVA) | payer OTHER, SELFPAY | PROVIDERS: PCP Internal Medicine; Visit Provider Internal Medicine Endocrinology, Diabetes & Metabolism | DX: C73 Malignant neoplasm of thyroid gland (principal) | CPT/HCPCS: 99212 ==

== ENCOUNTER 2024-06-06 14:00 | Outpatient (AMB) | payer OTHER, SELFPAY ==
--- NOTE | 2024-06-06 08:55 | MHC.OFFVISWM ---
VS Expanded 06/06/24 08:56 Height 5 ft 1 in Weight 154 lb 2 oz BMI 29.1 Intake Visit Reasons: (TV) PO LSG 01/28/24 Allergies drospirenone [From SHAQ 28] Allergy (Unknown, Verified 05/11/24 16:03) SWELLING ethinyl estradiol [From SHAQ 28] Allergy (Unknown, Verified 05/11/24 16:03) SWELLING naproxen [From NAPROSYN] Allergy (Unknown, Verified 05/11/24 16:03) SWELLING sulfamethoxazole [From BACTRIM] Allergy (Unknown, Verified 05/11/24 16:03) RASH trimethoprim [From BACTRIM] Allergy (Unknown, Verified 05/11/24 16:03) RASH adhesive tape Allergy (Unknown, Uncoded 05/11/24 16:03) Unknown HPI Comments Details: Patient is a pleasant 44-year-old female who returns to the office today in follow-up. She is status post gastric banding (2012) with subsequent conversion to sleeve gastrectomy (2017 -[facility] - Dr Jay) and then revision of sleeve gastrectomy with hiatal hernia repair performed on 01/28/[address] Solis. Returns to the office for 4 month post op appointment. Weight today is 154.2 lb with a BMI of 29.1. Op weight was 206.4 pounds. She has lost 52.2 pounds or 25.2% TBWl She states she is doing well. No complaints of pain. Patient is satisfied with her meal plan but would like to start food. Meal plan: Celebrate 4 in 1, 1 scoops 8-10, 11-1, w 8 oz water 2 scoops 2-4 Celebrate protein bar 5-8 Drinking 64 oz water Exercise plan: Treadmill 5 x per week, 400 calories, speed 4, incline 5 PFSH Medical History Vitamin D deficiency Hypothyroidism Thyroid cancer Surgical History S/P repair of paraesophageal hernia S/P gastric sleeve procedure Hx of section Hx of dilation and curettage Hx of thyroidectomy Family History Father Asthma Hypertension Mother Hypertension Other S/P repair of paraesophageal hernia Social History Household Members: Family Housing: House Are you a primary district manager primary care sales to a significant other at home: No Do you presently have visiting nurse or other home services: No Alcohol intake: current Alcohol intake frequency: does not drink Patient Tobacco Use Status: Never used Tobacco service: No Telehealth Telehealth Telehealth Platform: Telephone Location of provider rendering services: practice address Location of patient: address on file Patient Identification confirmed using: Name, : Yes Telehealth method: voice only Patient verbally consented to treatment: Yes Patient verbally consented to billing insurance company: Yes Patient informed of any privacy concerns related to visit: Yes Minutes spent on Phone/Video with Pt.: 15 Assessment & Plan Assessment & Plan (1) S/P repair of paraesophageal hernia: Code(s): Z98.890 - Other specified postprocedural states; Z87.19 - Personal history of other diseases of the digestive system Category: Surgical Plan: Overall, patient is doing very well. She likes to incorporate food at this point. Celebrate 4 in 1, 2 scoops, x2 Meal with 4 forks protein and 4 forks vegetables Continue exercise as she is doing. Return to clinic as scheduled.
[2024-06-06 08:56] VITALS: BMI 29.1
== END 2024-06-06 14:30 | disposition home or self-care (01) ==
LOC: HO.HBS 14:10
PROVIDERS: PCP Internal Medicine; Visit Provider Physician Assistant Surgical
DX: E66.3 Overweight (principal); Z68.29 Body mass index [BMI] 29.0-29.9, adult; Z98.84 Bariatric surgery status
CPT/HCPCS: 99213

== ENCOUNTER → 2024-06-06 14:00 | Outpatient (BNVA) | payer OTHER, SELFPAY | PROVIDERS: PCP Internal Medicine; Visit Provider Physician Assistant Surgical ==

== ENCOUNTER 2024-07-15 09:30 | Outpatient (AMB) | payer OTHER, SELFPAY ==
[2024-07-15 09:10] VITALS: BMI 27.5
--- NOTE | 2024-07-15 09:10 | A.OFFVIS_ITS ---
VS Expanded 07/15/24 09:10 Height 5 ft 1 in Weight 145 lb 5 oz BMI 27.5 Body Fat % 22.5 Body Fat Mass 32.7 Fat Free Mass 112.8 Visceral Fat Rating 9 Body Water % 53.2 Body Water Mass 77.4 Muscle Mass/Score 105.9 Intake Visit Reasons: (TV) PO LSG 01/28/24 Pest Locator Required: No Allergies drospirenone [From SHAQ 28] Allergy (Unknown, Verified 05/11/24 16:03) SWELLING ethinyl estradiol [From SHAQ 28] Allergy (Unknown, Verified 05/11/24 16:03) SWELLING naproxen [From NAPROSYN] Allergy (Unknown, Verified 05/11/24 16:03) SWELLING sulfamethoxazole [From BACTRIM] Allergy (Unknown, Verified 05/11/24 16:03) RASH trimethoprim [From BACTRIM] Allergy (Unknown, Verified 05/11/24 16:03) RASH adhesive tape Allergy (Unknown, Uncoded 05/11/24 16:03) Unknown Medication List - Last Reconciled 07/15/24 by INDIGO Salas bisacodyl (Dulcolax (bisacodyl)) 10 mg ND DAILY PRN docusate sodium (Colace) 100 mg PO BID sennosides (senna) 17.2 mg (2 x 8.6 mg) PO BEDTIME PRN 90 days Synthroid (levothyroxine) 200 mcg PO DAILY NS HPI Comments Details: Patient is a pleasant 44-year-old female who returns to the office today in follow-up. She is status post gastric banding (2012) with subsequent conversion to sleeve gastrectomy (2017 -[facility] - Dr Jay) and then revision of sleeve gastrectomy with hiatal hernia repair performed on 01/28/[address] Solis. Returns to the office for 6 month post op appointment. Weight today is 145.5 lb with a BMI of 27.5. Op weight was 206.4 pounds. She has lost 60.9 pounds or 29.5% TBWl She states she is doing well. No complaints of pain. Feeling great and has increased energy. Patient is satisfied with her meal plan. Moving bowels without trouble Meal plan: Celebrate 4 in 1, 2 scoops, x2 Meal with 4 forks protein and 4 forks vegetables Drinking 64 oz water Exercise plan: Treadmill 5 x per week, 400 calories, speed 4.7, incline 6 Any post op complications: none ZHENG: never DM: never HTN: never Hyperlipidemia: never GERD:?0-5 scale ??0 = no symptoms ??1 = symptoms noticeable but not bothersome 2 =symptoms bothersome but not daily ? 3 = symptoms bothersome and daily 4 = symptoms affect daily activities 5 = symptoms are incapacitating, unable to do daily activities ? How bad is the heartburn: 0 ? Heartburn while lying down: 0 ? Heartburn when standing up: 0 ? Heartburn after meals: 0 ? Does heartburn change your diet: 0 ? Does heartburn wake you up from sleep: 0 ? Do you have difficulty swallowin ? Do you have pain with swallowin ? If you take medicine for your reflux, does this affect your daily life: 0 Satisfaction with present condition - satisfied or not satisfied: satisfied [facility] Medical History Vitamin D deficiency Hypothyroidism Thyroid cancer Surgical History S/P repair of paraesophageal hernia S/P gastric sleeve procedure Hx of section Hx of dilation and curettage Hx of thyroidectomy Family History Father Asthma Hypertension Mother Hypertension Other S/P repair of paraesophageal hernia Social History Household Members: Family Housing: House Are you a primary inspector health care facilities to a significant other at home: No Do you presently have visiting nurse or other home services: No Alcohol intake: current Alcohol intake frequency: does not drink Patient Tobacco Use Status: Never used Tobacco service: No Telehealth Telehealth Telehealth Platform: Telephone Location of provider rendering services: practice address Location of patient: address on file Patient Identification confirmed using: Name, : Yes Telehealth method: voice only Patient verbally consented to treatment: Yes Patient verbally consented to billing insurance company: Yes Patient informed of any privacy concerns related to visit: Yes Minutes spent on Phone/Video with Pt.: 15 Assessment & Plan Assessment & Plan (1) S/P gastric sleeve procedure: Comment: 2018 [facility] revision 01/28/24 Code(s): Z90.3 - Acquired absence of stomach [part of] Category: Surgical Plan: Overall doing very well. She is certainly much more committed than she was previously. She has no questions and is doing well with her meal plan. I did suggest decreasing the speed of her treadmill to 4 and then increasing the incline from 5-13 gradually over a 3 minute period per 1 % incline. We will have her return to the office in approximately 6 weeks. Additionally, check six-month postop labs. All questions were answered to her satisfaction. Orders: Orders Hemoglobin A1c Today E50.9 - Vitamin A deficiency, unspecified, E55.9 - Vitamin D deficiency, unspecified, E89.0 - Postprocedural hypothyroidism, Z87.19 - Personal history of other diseases of the digestive system, Z90.3 - Acquired absence of stomach [part of], Z98.890 - Other specified postprocedural states Zinc Today E50.9 - Vitamin A deficiency, unspecified, E55.9 - Vitamin D deficiency, unspecified, E89.0 - Postprocedural hypothyroidism, Z87.19 - Personal history of other diseases of the digestive system, Z90.3 - Acquired absence of stomach [part of], Z98.890 - Other specified postprocedural states C Reactive Protein Today E50.9 - Vitamin A deficiency, unspecified, E55.9 - Vitamin D deficiency, unspecified, E89.0 - Postprocedural hypothyroidism, Z87.19 - Personal history of other diseases of the digestive system, Z90.3 - Acquired absence of stomach [part of], Z98.890 - Other specified postprocedural states Insulin Today E50.9 - Vitamin A deficiency, unspecified, E55.9 - Vitamin D deficiency, unspecified, E89.0 - Postprocedural hypothyroidism, Z87.19 - Personal history of other diseases of the digestive system, Z90.3 - Acquired absence of stomach [part of], Z98.890 - Other specified postprocedural states Complete Blood Count Auto Diff Today E50.9 - Vitamin A deficiency, unspecified, E55.9 - Vitamin D deficiency, unspecified, E89.0 - Postprocedural hypothyroidism, Z87.19 - Personal history of other diseases of the digestive system, Z90.3 - Acquired absence of stomach [part of], Z98.890 - Other specified postprocedural states Lipid Panel Today E50.9 - Vitamin A deficiency, unspecified, E55.9 - Vitamin D deficiency, unspecified, E89.0 - Postprocedural hypothyroidism, Z87.19 - Personal history of other diseases of the digestive system, Z90.3 - Acquired absence of stomach [part of], Z98.890 - Other specified postprocedural states IRON PROFILE Today E50.9 - Vitamin A deficiency, unspecified, E55.9 - Vitamin D deficiency, unspecified, E89.0 - Postprocedural hypothyroidism, Z87.19 - Personal history of other diseases of the digestive system, Z90.3 - Acquired absence of stomach [part of], Z98.890 - Other specified postprocedural states Comprehensive Met. Panel Today E50.9 - Vitamin A deficiency, unspecified, E55.9 - Vitamin D deficiency, unspecified, E89.0 - Postprocedural hypothyroidism, Z87.19 - Personal history of other diseases of the digestive system, Z90.3 - Acquired absence of stomach [part of], Z98.890 - Other specified postprocedural states Vitamin B12 and Folate Today E50.9 - Vitamin A deficiency, unspecified, E55.9 - Vitamin D deficiency, unspecified, E89.0 - Postprocedural hypothyroidism, Z87.19 - Personal history of other diseases of the digestive system, Z90.3 - Acquired absence of stomach [part of], Z98.890 - Other specified postprocedural states Vitamin B1 Today E50.9 - Vitamin A deficiency, unspecified, E55.9 - Vitamin D deficiency, unspecified, E89.0 - Postprocedural hypothyroidism, Z87.19 - Personal history of other diseases of the digestive system, Z90.3 - Acquired absence of stomach [part of], Z98.890 - Other specified postprocedural states Vitamin A Today E50.9 - Vitamin A deficiency, unspecified, E55.9 - Vitamin D deficiency, unspecified, E89.0 - Postprocedural hypothyroidism, Z87.19 - Personal history of other diseases of the digestive system, Z90.3 - Acquired absence of stomach [part of], Z98.890 - Other specified postprocedural states TSH reflex Free T4 Today E50.9 - Vitamin A deficiency, unspecified, E55.9 - Vitamin D deficiency, unspecified, E89.0 - Postprocedural hypothyroidism, Z87.19 - Personal history of other diseases of the digestive system, Z90.3 - Acquired absence of stomach [part of], Z98.890 - Other specified postprocedural states Ferritin Today E50.9 - Vitamin A deficiency, unspecified, E55.9 - Vitamin D deficiency, unspecified, E89.0 - Postprocedural hypothyroidism, Z87.19 - Personal history of other diseases of the digestive system, Z90.3 - Acquired absence of stomach [part of], Z98.890 - Other specified postprocedural states Vitamin D 25-OH Total Today E50.9 - Vitamin A deficiency, unspecified, E55.9 - Vitamin D deficiency, unspecified, E89.0 - Postprocedural hypothyroidism, Z87.19 - Personal history of other diseases of the digestive system, Z90.3 - Acquired absence of stomach [part of], Z98.890 - Other specified postprocedural states
== END 2024-07-15 09:53 | disposition home or self-care (01) ==
LOC: HO.HBS 09:49
PROVIDERS: PCP Internal Medicine; Visit Provider Physician Assistant Surgical
DX: E66.3 Overweight (principal); Z68.27 Body mass index [BMI] 27.0-27.9, adult; Z90.3 Acquired absence of stomach [part of]; Z98.84 Bariatric surgery status
CPT/HCPCS: 99213

== ENCOUNTER 2024-07-23 08:45 | Outpatient (REF) | payer OTHER, SELFPAY ==
[2024-07-23 09:24] LABS: MANUAL DIFF FLAG NO
[2024-07-23 10:09] LABS: Basophils Percent Auto 0.8 % (0-2); Eosinophils Absolute Auto 0.2 X10*3/uL (0.0-0.4); Eosinophils Percent Auto 3.8 % (0-4); Hematocrit 39.2 % (37.0-47.0); Hemoglobin 12.8 g/dl (12.0-16.0); Imm Gran Abs Auto 0.01 X10*3/uL (0.00-0.03); Imm Gran Pct Auto 0.3 % (0.0-0.4); Lymphocytes Absolute Auto 1.4 X10*3/uL (1.2-4.9); Lymphocytes Percent Auto 35.6 % (20-40); Mean Corpuscular HGB Conc 32.7 g/dl (31.0-35.0); Mean Corpuscular Hemoglobin 29.6 pg (27.0-33.0); Mean Corpuscular Volume 90.5 fL (80.0-98.0); Monocytes Absolute Auto 0.6 X10*3/uL (0.1-1.2); Monocytes Percent Auto 15.1 % (2-11); Neutrophils Absolute Auto 1.7 x10*3/uL (2.0-8.3); Neutrophils Percent Auto 44.4 % (45-73); Platelet Count 167 X10*3/uL (160-400); Red Blood Count 4.33 X10*6/uL (4.20-5.50); Red Cell Distribution Width 15.8 % (11.0-16.0); White Blood Count 3.9 X10*3/uL (4.8-10.8)
[2024-07-23 11:04] LABS: Estimated Average Glucose 91 mg/dL; Hemoglobin A1C 98.0708 umol/L; Hemoglobin A1c % 4.8 % (<6.0); Total Hemoglobin (HGBA1C) 3332.9833 umol/L
[2024-07-23 11:22] LABS: Alanine Aminotransferase 13 U/L (0-31); Alkaline Phosphatase 53 U/L (39-117); Anion Gap 11 (12-20); Aspartate Amino Transferase 18 U/L (5-31); Bilirubin Total 0.9 mg/dL (0.0-1.0); Blood Urea Nitrogen 18 mg/dL (9-16); C Reactive Protein < 0.10 mg/dL (< or = 0.50); Calcium 8.3 mg/dL (8.4-10.2); Carbon Dioxide 25 mmol/L (22-29); Chloride 108 mmol/L (96-108); Cholesterol 147 mg/dL (<200); Estimated Glomerular Filt Rate > 60; Glucose Random 85 mg/dL (60-115); HDL Cholesterol 83 mg/dL (>40); Iron 72 mcg/dL (30-160); LDL Cholesterol Calculated 55 mg/dL (<100); Percent Iron Saturation 23 % (15-50); Potassium 4.5 mmol/L (3.3-5.1); Sodium 139 mmol/L (135-145); Total Iron Binding Capacity 310 mcg/dL (228-428); Total Protein 6.6 g/dL (6.5-8.0); Triglycerides 46 mg/dL (<150); Unsaturated Iron Binding 238 ug/dL
[2024-07-23 11:46] LABS: Ferritin 8 ng/mL (10-250); TSH reflex Free T4 7.71 uIU/mL (0.32-4.0); Vitamin D 25-OH Total 21.6 ng/mL (>30)
[2024-07-23 11:47] LABS: Folate 9.1 ng/mL (> or = 4.0); Vitamin B12 483 pg/mL (200-900)
[2024-07-23 12:21] LABS: Free T4 (Free Thyroxine) 1.06 ng/dL (0.71-1.85)
[2024-07-23 14:51] LABS: Insulin 4 uU/mL (2-29)
[2024-07-26 22:03] LABS: Zinc 71 mcg/dL (60-130)
[2024-08-05 08:04] LABS: Vitamin B1 96
== END 2024-07-23 08:46 | disposition home or self-care (01) ==
LOC: HO.LAB 08:45
PROVIDERS: PCP Internal Medicine; Visit Provider Physician Assistant Surgical
DX: E89.0 Postprocedural hypothyroidism (principal); Z98.890 Other specified postprocedural states; Z87.19 Personal history of other diseases of the digestive system; E50.9 Vitamin A deficiency, unspecified; E55.9 Vitamin D deficiency, unspecified; Z90.3 Acquired absence of stomach [part of]; Z13.1 Encounter for screening for diabetes mellitus
CPT/HCPCS: 36415; 80053; 80061; 82306; 82607; 82728; 82746; 83036; 83525; 83540; 84425; 84439; 84443; 84590; 84630; 85025; 86140

== ENCOUNTER 2024-08-24 13:30 | Outpatient (AMB) | payer OTHER, SELFPAY ==
[2024-08-24 08:35] VITALS: BMI 26.5
--- NOTE | 2024-08-24 08:35 | A.OFFVIS_ITS ---
VS Expanded 08/24/24 08:35 Height 5 ft 1 in Weight 140 lb 4 oz BMI 26.5 Intake Visit Reasons: (TV) PO LSG 01/28/24 Allergies drospirenone [From SHAQ 28] Allergy (Unknown, Verified 05/11/24 16:03) SWELLING ethinyl estradiol [From SHAQ 28] Allergy (Unknown, Verified 05/11/24 16:03) SWELLING naproxen [From NAPROSYN] Allergy (Unknown, Verified 05/11/24 16:03) SWELLING sulfamethoxazole [From BACTRIM] Allergy (Unknown, Verified 05/11/24 16:03) RASH trimethoprim [From BACTRIM] Allergy (Unknown, Verified 05/11/24 16:03) RASH adhesive tape Allergy (Unknown, Uncoded 05/11/24 16:03) Unknown HPI Comments Details: Patient is a pleasant 44-year-old female who returns to the office today in follow-up. She is status post gastric banding (2012) with subsequent conversion to sleeve gastrectomy (2017 -[facility] - Dr Jay) and then revision of sleeve gastrectomy with hiatal hernia repair performed on 01/28/[address] Solis. Returns to the office for 7 month post op appointment. Weight today is 144.4 lb with a BMI of 26.5. Op weight was 206.4 pounds. She has lost 66 pounds or 31.9% TBWl since her revision in January 2024. She states she is doing well. No complaints of pain. Feeling great and has increased energy. Patient is satisfied with her meal plan. Moving bowels without trouble. She has not been exercising recently given the fact that her child has been sick requiring multiple doctors visits. In fact, today's visit is shortened because she is having to take her child to the emergency room Meal plan: Celebrate 4 in 1, 2 scoops, x2 Meal with 4 forks protein and 4 forks vegetables Drinking 64 oz water Exercise plan: Treadmill 5 x per week, 400 calories, speed 4.7, incline 6 PFSH Medical History Vitamin D deficiency Hypothyroidism Thyroid cancer Surgical History S/P repair of paraesophageal hernia S/P gastric sleeve procedure Hx of section Hx of dilation and curettage Hx of thyroidectomy Family History Father Asthma Hypertension Mother Hypertension Other S/P repair of paraesophageal hernia Social History Household Members: Family Housing: House Are you a primary youth care worker to a significant other at home: No Do you presently have visiting nurse or other home services: No Alcohol intake: current Alcohol intake frequency: does not drink Patient Tobacco Use Status: Never used Tobacco service: No Telehealth Telehealth Telehealth Platform: Telephone Location of provider rendering services: practice address Location of patient: address on file Patient Identification confirmed using: Name, : Yes Telehealth method: voice only Patient verbally consented to treatment: Yes Patient verbally consented to billing insurance company: Yes Patient informed of any privacy concerns related to visit: Yes Minutes spent on Phone/Video with Pt.: 5 Assessment & Plan Assessment & Plan (1) S/P gastric sleeve procedure: Comment: 2018 [facility] revision 01/28/24 Code(s): Z90.3 - Acquired absence of stomach [part of] Category: Surgical Plan: Patient had to cut the visit short given that she was taking her child to the emergency room. She is satisfied with her meal plan and is following it closely. She has not exercise recently given her multiple illnesses with her kid however she will return to exercise as soon as she is able. We will have her return to the office in approximately 2 months. She will call the office sooner with any questions or concerns.
== END 2024-08-24 13:53 | disposition home or self-care (01) ==
LOC: HO.HBS 13:44
PROVIDERS: PCP Internal Medicine; Visit Provider Physician Assistant Surgical
DX: E66.3 Overweight (principal); Z68.26 Body mass index [BMI] 26.0-26.9, adult; Z90.3 Acquired absence of stomach [part of]; Z98.84 Bariatric surgery status
CPT/HCPCS: 99212

== ENCOUNTER 2024-11-08 15:30 | Outpatient (AMB) | payer OTHER, SELFPAY ==
[2024-11-08 15:32] VITALS: BP 112/84; PULSE 76; O2SAT 98; BMI 39.9
--- NOTE | 2024-11-08 15:32 | MHC.OFFVIS ---
Vital Signs 11/08/24 15:32 Height 5 ft 1 in Weight 211 lb 6.773 oz BMI 39.9 BP 112/84 Blood Pressure Location Lt brachial Position Sitting Pulse 76 Pulse Source Pulse Oximeter Pulse Oximetry (%) 98 Oxygen Delivery Method Room Air Intake Visit Reasons: f/u thyroid cancer Intake Note: Patient present today for thyroid cancer office visit. Chief Unit Forester Required: No Accompanied by: Self / Same As Patient Allergies drospirenone [From SHAQ 28] Allergy (Unknown, Verified 11/08/24 15:35) SWELLING ethinyl estradiol [From SHAQ 28] Allergy (Unknown, Verified 11/08/24 15:35) SWELLING naproxen [From NAPROSYN] Allergy (Unknown, Verified 11/08/24 15:35) SWELLING sulfamethoxazole [From BACTRIM] Allergy (Unknown, Verified 11/08/24 15:35) RASH trimethoprim [From BACTRIM] Allergy (Unknown, Verified 11/08/24 15:35) RASH adhesive tape Allergy (Unknown, Uncoded 11/08/24 15:35) Unknown Medication List - Last Reconciled 11/08/24 by Malika Ambriz MD bisacodyl (Dulcolax (bisacodyl)) 10 mg IN DAILY PRN cholecalciferol (vitamin D3) 125 mcg PO DAILY 90 days docusate sodium (Colace) 100 mg PO BID sennosides (senna) 17.2 mg (2 x 8.6 mg) PO BEDTIME PRN 90 days Synthroid (levothyroxine) 200 mcg PO DAILY NS HPI Comments Details: 44-year-old female coming in today for follow up of papillary thyroid cancer, status post total thyroidectomy in 2013 at [facility] in [place], pathology showing 1.6 cm PTC left-sided, with 5% cells of tall cell variant. There was additional multifocal microscopic foci of PTC within the right lobe. No extrathyroidal extension, no lymphatic invasion, no angioinvasion, AJCC stage I pT1 N0, TRENT intermediate risk of recurrence given portion of tall cell variant. Currently with TRENT excellent response to therapy. History of PTC in detail October 2013: Diagnosed with PTC, status post total thyroidectomy at [facility] in [place] with pathology showing 1.6 X 1.2 X 1.3 cm left-sided PTC with 5% cells of tall cell variant. There were additional multifocal microscopic foci of PTC within the right lobe but no parathyroid all extension was identified. AJCC stage I pT1 N0. TRENT intermediate risk of recurrence. 02/27/2014: Status post 35 mCi of radioactive iodine ablation with I 131 at [facility] in [place] 02/22/2014: Whole-body scan reported LEI uptake in the thyroid bed consistent with metastatic disease, no distant metastatic deposits identified. She was following with her industrial training specialist Dr. Roque at that time, and then later establish with [facility] endocrinology in 2018. 10/05/2017: Ultrasound of the neck revealed multiple enlarged cervical lymph nodes, apparently per chart review FNA biopsy of 1 of these was negative for malignancy. 03/25/2019: Thyrogen stimulated whole-body scan difficult persistent uptake within the thyroid bed and also faint uptake within the right neck concerning for lymph node metastasis. TSH 144.62, TG 0.2, TG antibody level of 5. 02/21/2019: Ultrasound of the neck revealed multiple bilateral enlarged lymph nodes including a left level 3 complex appearing 1.9 cm lymph node. FNA biopsy often enlarged right level 2, right level 4, right level 5 and left level 3 lymph nodes, all negative for cancer. TG washout was negative in all but the right level 2 lymph node were no TG washout was sent. Then apparently there was some issues with the adherence to medication. 11/21/2020: Thyrogen stimulated labs TSH of 91.16 with TG of 0.3, TG antibody of 6. Also around this time in 2020, she had fertility treatments, and can see if successfully. Further whole-body scans are I 131 treatment was deferred until her childbearing was complete. 10/30/2020: Ultrasound of the neck showed persistent lymphadenopathy. 05/21/2021: Ultrasound of the neck showed 3 of normal-appearing cervical lymph nodes a right level 1B, 1.1 cm, a right level 1B, 0.8 cm and a right level 1A, 0.3 cm lymph node. 06/05/2021: FNA biopsy of the right level 1B 1.1 cm cervical lymph node with no evidence of metastatic carcinoma identified. 05/08/2023: Whole-body scan only showed physiologic uptake. TSH was greater than 100, stimulated TG levels with the LC EMS was undetectable, TG antibody level was 2 05/22/2023: TSH 5.23, free T4 1.17, thyroglobulin by LC MS less than 0.4, TG antibody 3 06/19/2023: US neck Normal-appearing bilateral cervical lymph nodes 07/23/2024: TSH 7.71 Free T4 1.06 Interval history No dysphagia, or voice chnages but endorses some tenderness to touch in central neck for 4 months or so On brand name synthroid due to fluctuations in TSH on generic in the past Reports strict adherence to the medication Takes it at 545 AM in the monring, coffee 6 30, breakfast 8 AM Bowel movements regular , tired all the time, weight stable Laboratory Tests 10/09/20 11/22/20 12/18/20 11:50 12:40 12:35 Free T4 1.46 1.05 TSH Thyroglobulin LC-MS/MS Thyroglobulin Antibody 6 H 02/09/21 05/15/21 07/31/21 07:30 11:50 06:29 Free T4 1.46 1.41 1.23 TSH Thyroglobulin LC-MS/MS Thyroglobulin Antibody 4 H 3 H 09/05/21 10/28/21 04/10/22 06:24 06:48 11:33 Free T4 1.14 1.04 1.62 TSH Thyroglobulin LC-MS/MS Thyroglobulin Antibody 10/10/22 12/03/22 01/01/23 06:47 11:46 12:27 Free T4 0.66 L 1.13 1.22 TSH 31.48 H 15.82 H 3.03 Thyroglobulin LC-MS/MS Thyroglobulin Antibody 03/21/23 04/30/23 05/05/23 08:37 16:05 11:05 Free T4 0.79 < 0.42 L < 0.42 L TSH 17.67 H > 100.00 H > 100.00 H Thyroglobulin LC-MS/MS <0.4 <0.4 <0.4 Thyroglobulin Antibody 2 H 2 H 2 H 05/15/23 05/22/23 10/19/23 Unknown 12:15 06:24 Free T4 0.85 1.17 TSH 57.59 H 5.23 H 3.27 Thyroglobulin LC-MS/MS <0.4 <0.4 Thyroglobulin Antibody 2 H 3 H 11/28/23 01/20/24 04/08/24 07:13 06:28 06:16 Free T4 1.01 1.61 1.04 TSH 3.53 0.03 L 2.35 Thyroglobulin LC-MS/MS Thyroglobulin Antibody 07/23/24 09:22 Free T4 1.06 TSH 7.71 H Thyroglobulin LC-MS/MS Thyroglobulin Antibody US SOFT TISSUE OF THE NECK 06/19/23 CLINICAL INFORMATION: Malignant neoplasm of thyroid gland. COMPARISON: Soft tissue neck ultrasound 05/21/2021. TECHNIQUE: Linear transducer grayscale and color Doppler examination of the thyroid bed and surrounding soft tissue. FINDINGS: Thyroidectomy. Bilateral thyroidectomy beds appear normal. Imaged cervical lymph nodes: Right upper: 1.7 x 0.6 x 1.0 cm with preserved fatty hilum. Right lower: 1.8 x 0.6 x 0.5 cm with preserved fatty hilum. Left mid: 1.4 x 0.7 x 0.7 cm with preserved fatty hilum. US/US thyroid IMPRESSION: Normal-appearing bilateral cervical lymph nodes. It is difficult to compare individual nodes between studies but there has likely been no significant change compared to soft tissue neck ultrasound 05/21/2021. US SOFT TISSUE NECK 05/21/21 CLINICAL INFORMATION: Thyroid cancer. COMPARISON: 10/30/2020 TECHNIQUE: Ultrasound of the neck soft tissues is performed with high- frequency duffy-scale imaging and color Doppler. FINDINGS: THYROID BED: Prior thyroidectomy. No residual thyroid tissue demonstrated in the thyroid bed. No cystic or solid nodules demonstrated in the thyroid bed. There are numerous normal-appearing lymph nodes seen bilaterally RIGHT NECK SOFT TISSUES: Scattered lymph nodes are present. Some appear normal with normal fatty clefts and smooth margins without cortical thickening or lobulation. A few are abnormal and will be listed. The largest nodes are as follows: Level 3: 2.2 x 0.6 x 0.6 cm. Normal incole architecture Level 3: 1.9 x 0.7 x 1.4 cm. Normal nicole architecture. Cortical thickness of 2.5 mm. There is an abnormal right level 1B lymph node that was not previously seen measuring 5 x 5 x 5 mm in size. It is rounded in appearance without fatty hilum identified. There is an abnormal lymph node seen within level 1B measuring 1.1 x 0.5 x 0.9 cm in size with a nodular cortex. There is normal fatty cleft present and no cortical thickening. There is an abnormal lymph node seen at level 1B which is essentially stable in size to previous study measuring 8 x 6 x 8 mm in size with some cortical nodularity but without significant change from prior study. Fatty hilum present. There is an abnormal-appearing lymph node level IA measuring 3 x 2 x 3 mm in size which is smaller than on prior study where it measured 5 x 4 x 5 mm in size. LEFT NECK SOFT TISSUES: Scattered architecturally normal nodes are present. The nodes show normal fatty hilus, normal cortical thickness, and no cystic change or calcification. No abnormal color flow. The largest nodes are as follows: Level 3: 1.1 x 0.3 x 0.8 cm. Normal nicole architecture. This was not noted on previous study. Level 3: 1.3 x 0.5 x 0.6 cm. Normal nicole architecture. This has enlarged and previously was 1.3 x 0.5 x 0.6 cm in size. Level 1B: 1.5 x 0.5 x 1.2 cm in size compared to previous study where it measured 1.2 x 0.6 x 0.9 cm in size. Normal nicole architecture. There are 3 other lymph nodes that were not seen on prior study: One within level 2 measuring 5 x 2 x 5 mm in size. This has normal architecture. Another is in level 3 measuring 1.1 x 0.3 x 0.8 cm in size. This has normal architecture. The third is in segment 5A measuring 6 x 4 x 5 mm in size with normal architecture. US/US soft tiss head and/or neck IMPRESSION: Numerous bilateral neck lymph nodes with normal architecture on the left with a few lymph nodes not noted previously as described. Some abnormal-appearing right neck lymph nodes as described above. In previous report it is stated that biopsies were performed of bilateral lymph nodes however none are listed as being within level 1 within the right neck where most of the abnormal-appearing lymph nodes are seen. US SOFT TISSUE NECK 10/30/20 CLINICAL INFORMATION: C73 - Malignant neoplasm of thyroid gland COMPARISON: CT neck with contrast, report 04/22/2019, ultrasound-guided lymph node fine-needle aspiration report 04/20/2019. TECHNIQUE: Ultrasound of the neck soft tissues is performed with high frequency duffy-scale imaging and color Doppler. FINDINGS: RIGHT NECK SOFT TISSUES: Scattered architecturally normal nodes are present. The nodes show normal fatty hilus, normal cortical thickness, and no cystic change or calcification. No abnormal color flow. The largest nodes are as follows: Level 2: 2.1 x 0.7 x 1.3 cm. Normal nicole architecture. Level 2: 1.4 x 0.5 x 1.2 cm. Normal nicole architecture. Level 3: 1.9 x 0.7 x 1.4 cm. Normal nicole architecture. LEFT NECK SOFT TISSUES: Scattered architecturally normal nodes are present. The nodes show normal fatty hilus, normal cortical thickness, and no cystic change or calcification. No abnormal color flow. Level 1B: 1.2 x 0.6 x 0.9 cm. Normal nicole architecture. Level 1B: 1.2 x 0.5 x 0.9 cm. Normal nicole architecture. US/US soft tiss head and/or neck IMPRESSION: 1. Bilateral architecturally normal nodes. No lymphadenopathy. 2. If further evaluation is clinically indicated, CT neck with contrast would be recommended. [facility] Medical History Vitamin D deficiency Hypothyroidism Thyroid cancer Surgical History S/P repair of paraesophageal hernia S/P gastric sleeve procedure Hx of section Hx of dilation and curettage Hx of thyroidectomy Family History Father Asthma Hypertension Mother Hypertension Other S/P repair of paraesophageal hernia Social History Household Members: Family Housing: House Are you a primary client care coordinator to a significant other at home: No Do you presently have visiting nurse or other home services: No Alcohol intake: current Alcohol intake frequency: does not drink Patient Tobacco Use Status: Never used Tobacco service: No Physical Exam Vital Signs: Last Vital Signs Pulse 76 11/08/24 15:32 BP 112/84 11/08/24 15:32 Pulse Ox 98 11/08/24 15:32 Oxygen Delivery Method Room Air 11/08/24 15:32 BMI result Body Mass Index 39.9 Assessment & Plan Assessment & Plan (1) Thyroid cancer: Code(s): C73 - Malignant neoplasm of thyroid gland Category: Medical Plan: 44-year-old female coming in today for follow up of papillary thyroid cancer, status post total thyroidectomy in 2013 at [facility] in [place], pathology showing 1.6 cm PTC left-sided, with 5% cells of tall cell variant. There was additional multifocal microscopic foci of PTC within the right lobe. No extrathyroidal extension, no lymphatic invasion, no angioinvasion, AJCC stage I pT1 N0, TRENT intermediate risk of recurrence given portion of tall cell variant. Over the years she has had multiple ultrasounds of the neck that showed some of normal cervical lymph nodes, FNA biopsy of these lymph nodes in 2018 and then again in 2019 was negative for cancer with TG washout being negative. Last ultrasound done in June 2023 did not show any abnormal lymph nodes. Her last whole-body scan from May 2023 also only showed physiologic uptake. Stimulated TG levels were undetectable with LC MS. She has had positive TG antibodies which makes us a little bit concerned about reliability of the thyroglobulin markers, however these have also declined over the years from being anywhere around 6 in 7 to most recently in 2022 when levels were at 3. Based on all this data, with most recently from 2022 both stimulated and unstimulated TG levels with the LCM as being undetectable, I would classify her as Currently with TRENT excellent response to therapy. TSH goal 0.5-2. Most recent labs from July 2024 showed TSH was elevated at 7.71, these were done by PCP, no dose changes were made by our endocrinology department. Patient is adamant about being adherent to the medication. At this time I will repeat her labs including the tumor markers. She is also due to get an ultrasound of the neck. Plan: -ordered ultrasound of the neck -ordered TSH, free T4, TG and TG antibodies to be done now, TG levels should be done LC MS -continue Synthroid 200 mcg daily, she has had abnormal TSH fluctuations with levothyroxine generic in the past -we will reach out with the results of the labs on the portal -follow up in 8 weeks to discuss ultrasound results (2) Hypothyroidism: Code(s): E03.9 - Hypothyroidism, unspecified Category: Medical Qualifiers: Hypothyroidism type: postoperative Qualified Code(s): E89.0 - Postprocedural hypothyroidism Plan: Given excellent response to therapy, TSH goal 0.5-2. Most recent labs from July 2024 showed TSH was elevated at 7.71, these were done by PCP, no dose changes were made by our endocrinology department. Patient is adamant about being adherent to the medication. At this time I will repeat her labs Plan: -ordered TSH, free T4, TG and TG antibodies to be done now, TG levels should be done with LC MS -continue Synthroid 200 mcg daily, she has had abnormal TSH fluctuations with levothyroxine generic in the past -we will reach out with the results of the labs on the portal Plan I spent 30 minutes in reviewing the record, seeing the patient and documenting in the medical record. Orders: Orders Thyroid Stimulating Hormone Today C73 - Malignant neoplasm of thyroid gland, E89.0 - Postprocedural hypothyroidism Thyroglobulin Tumor Marker Today C73 - Malignant neoplasm of thyroid gland, E89.0 - Postprocedural hypothyroidism Thyroglobulin Antibodies Today C73 - Malignant neoplasm of thyroid gland, E89.0 - Postprocedural hypothyroidism Free T4 (Free Thyroxine) Today C73 - Malignant neoplasm of thyroid gland, E89.0 - Postprocedural hypothyroidism US soft tiss head and/or neck Today C73 - Malignant neoplasm of thyroid gland Patient Instructions: Continue Synthroid 200 mcg daily Do blood work today, I will reach out with the results on the portal Do neck ultrasound, follow up in 8 weeks to discuss results Coding Level of Care Code Est Pt Level 4 (97109) Complex EM visit Add On G2211 Diagnoses Thyroid cancer C73 Postoperative hypothyroidism E89.0 Hypothyroidism type: postoperative Time Spent (min) 30
--- OUTSIDE RECORDS SUMMARY | 2024-11-08 19:34 | XMS_ITS | Clinical Summary ---
Author Organization [facility] Address [address] [place] [address] Care Team Providers Care Highway Maintainer Name Role Phone Dominic Rudolph MD Primary Care Provider [phone] Surgical History Surgery Date Site/Laterality Comments LAPAROSCOPIC GASTRIC BANDING 06/2013 PROCEDURE: LAP ADJUSTABLE GASTRIC BAND; COMMENT: 09/24/17 removed TONSILLECTOMY PROCEDURE: HISTORICAL TONSILLECTOMY OTHER SURGICAL HISTORY 11/2010 PROCEDURE: [place] INSERTION INTRAUTERINE DEVICE IUD; COMMENT: Dr. Carrillo, record indicates removal on 11/29/2010 this was when she had it inserted BARIATRIC SURGERY [id number] PROCEDURE: NY LAPS GSTRC RSTRICTIV PX LONGITUDINAL GASTRECTOMY THYROIDECTOMY 01/24/2014 PROCEDURE: HISTORICAL TOTAL THYROIDECTOMY OTHER SURGICAL HISTORY 01/2020 PROCEDURE: [place] DILATION & CURETTAGE DX&/THER NONOBSTETRIC Medical History Medical History Date Comments Asthma 12/03/2005 DX:Asthma; COMME NT: stable since childhood Herpes simplex without complication 12/03/2005 DX:Herpes simplex without complication; COMMENT: Type 1 History of bariatric surgery 11/03/2013 DX: History of bariatric surgery; COMMENT: 11/16/17 BMI 41.8 09/24/17 Lap gastrectomy w/lap removal of gastric band, (antrum biopsy) chronic gastritis and lyphoid nodule and H. Pylori identified; Lap Band 06/2013 Hx of thyroid cancer 06/05/2014 DX:Hx of th yroid cancer; COMMENT: 2013 Thyroidectomy Family history of breast cancer 01/18/2015 DX:Family history of breast cancer Hypothyroidism, acquired 03/03/2014 DX:Hypo thyroidism, acquired Allergic rhinitis 01/21/2011 DX:Allergic rh initis GERD (gastroesophageal reflu x disease) 05/14/2011 DX:GERD (gastroesophageal re flux disease) Morbid obesity with BMI of 4 0.0-44.9, adult (CMS/HCC) 12/03/2005 DX:Morbid obesity with BMI o f 40.0-44.9, adult (HCC) S/P D&C (status post dilatio n and curettage) 11/03/2013 DX:S/P D&C (status post dila tion and curettage); COMMENT: 11/16/17 BMI 41.8. 09/24/17 Lap gastrectomy w/lap removal of gastric band, (antrum biopsy) chronic gastritis and lyphoid nodule and H. Pylori identified; Lap Band 06/2013 Type A blood, Rh positive 2019 DX:Typ e A blood, Rh positive Missed 12/29/2019 DX:Missed aborti on Family History Medical History Relation Name Comments Breast cancer Aunt 1 1 maternal aunt; second primary br ca at 40 Other: lupus Aunt 2 maternal aunt d x - age 40 Hypertension Father alive at 70, 20 15 Other: Other Maternal Grandfather HTN; al jules at 85, 2015 Diabetes Maternal Grandmother arthrit is; alive at age 89 2015 Hypertension Mother alive at 54 201 5 Other: Other Other 1 maternal gr aun t ? type Other: brain tumor Other 2 niece; di ed at age 9 Other: ovarian cancer Other 3 patern al 1st cousin Heart attack Paternal Grandfather age 70' Other: bladder cancer Paternal Grandmother Cervical cancer Neg Hx Colon cancer Neg Hx Pancreatic cancer Neg Hx Prostate cancer Neg Hx Uterine cancer Neg Hx Relation Name Status Comments Aunt 1 1 Aunt 2 Alive Brother Alive Asthma Father Alive HTN Maternal Grandfather Maternal Grandmother Alive Mother Alive HTN Other 1 Other 2 Other 3 Alive Paternal Grandfather Paternal Grandmother Sister Alive Sesonal allergi es, thyroid problems Social History Tobacco Use Types Packs/Day Years Used Date Smoking Tobacco: Never Smokeless Tobacco: Never Alcohol Use Standard Drinks/Week Comments Yes 0 (1 standard drink = 0.6 oz pur e alcohol) Comments Unknown Sex and Gender Information Value Date Recorded Sex Assigned at Not on file Legal Sex Female 1:57 PM EST Gender Identity Not on file Sexual Orientation Not on file Obstetrics History Last Filed Vital Signs Vital Sign Reading Time Taken Comments Blood Pressure 110/74 01/21/2023 9:56 AM EDT Sitting L Arm Pulse 82 01/21/2023 9:56 AM EDT Temperature - - Respiratory Rate - - Oxygen Saturation - - Inhaled Oxygen Concentration - - Weight 108 kg (237 lb 3.2 oz) 3 9:56 AM EDT Height 154.9 cm (5' 1 ) 01/21/2023 9:56 AM EDT Body Mass Index 44.82 01/21/2023 9:56 AM EDT Plan of Treatment Health Maintenance Due Date Last Done Comments Hepatitis B Vaccines (1 of 3 - 19+ 3-dose series) 1998 Pneumococcal Vaccine: Pediatrics (0 to 5 Years) and At-Risk Patients (6 to 64 Years) (1 of 2 - PCV) 1998 Cervical Cancer Screening: HPV 2000 Breast Cancer Screening 07/19/2021 07/19/20, 02/25/2018, 03/19/2017, Additional history exists Colorectal Cancer Screening: Colonoscopy 08/06/2022 Depression Screening 08/06/2022 HIV Screening 08/06/2022 Hepatitis C Screening 08/06/2022 Social Influencers of Health Screening 08/06/2022 DTaP,Tdap,and Td Vaccines (2 - Td or Tdap) 11/02/2022 11/02/2012 COVID-19 Vaccine ( - season) 2024 Influenza Vaccine (#1) 2024 5, 07/05/2014, 07/27/2013, Additional history exists HIB Vaccines Aged Out No longer eligi ble based on patient's age to complete this topic HPV Vaccines Aged Out No longer eligi ble based on patient's age to complete this topic Hepatitis A Vaccines Aged Out No long er eligible based on patient's age to complete this topic IPV Vaccines Aged Out No longer eligi ble based on patient's age to complete this topic MMR Vaccines Aged Out No longer eligi ble based on patient's age to complete this topic Meningococcal ACWY Vaccine Aged Out N o longer eligible based on patient's age to complete this topic Meningococcal B Vacine Aged Out No lo nger eligible based on patient's age to complete this topic RSV Immunization Patients Under 20 months Aged Out No longer eligible based on patient's age to complete this topic Varicella Vaccines Aged Out No longer eligible based on patient's age to complete this topic Procedures Procedure Name Priority Date/Time Associated Diagnosis Comments SCR MAMMO BI INCL CAD Routine 07/19/2020 5:01 PM EST Encounter for other screening for malignant neoplasm of breast Family history of malignant neoplasm of breast from Last 3 Months or Most Recently Relevant to Health Maintenance Results * SCR MAMMO BI INCL CAD (07/19/2020 5:01 PM EST) Anatomical Region Laterality Modality Radiographic Saranya ging 03/27/2020 10:0 0 AM EDT Narrative 07/20/2020 9:19 AM EST This is a summary report. The complete report is available in the patient's medical record. If you cannot access the medical record, please contact the sending organization for a detailed fax or copy. Exam: Screening mammogram Findings: Digital bilateral full-field screening mammography is performed and interpreted with the aid of computer-aided detection. ??Comparison is made with 02/25/2018 and as far back as 02/01/2015. Breast parenchyma is composed of scattered fibroglandular densities. ??No new suspicious mass, architectural distortion, or suspicious calcifications. Impression: No mammographic evidence of malignancy. BI-RADS 1 - negative Procedure Note Delores Morgan MD - 08/26/2022 This is a summary report. The complete report is available in thepatient's medical record. If you cannot access the medical record, pleasecontact the sending organization for a detailed fax or copy. Exam: Screening mammogram Findings: Digital bilateral full-field screening mammography is performedand interpreted with the aid of computer-aided detection. Comparison ismade with 02/25/2018 and as far back as 02/01/2015. Breast parenchyma is composed of scattered fibroglandular densities. Nonew suspicious mass, architectural distortion, or suspiciouscalcifications. Impression: No mammographic evidence of malignancy. BI-RADS 1 - negative us Janice Torres MD IMG XR PROCEDURES Final Res ult from Last 3 Months or Most Recently Relevant to Health Maintenance Care Teams Highway Maintainer Relationship Specialty Start Date End Date Dominic Rudolph MD [address] [place] [address] Dr George MA PCP - General Internal Medicine 01/12/20
--- OUTSIDE RECORDS SUMMARY | 2024-11-08 19:34 | XMS_ITS | Clinical Summary ---
Author Organization [facility] [employer] Address [address] [place] [address] [address] [place] [address] Care Team Providers Care Materials Engineer Name Role Phone Unavailable Primary Care Provider Unavailabl e Social History Tobacco Use Types Packs/Day Years Used Date Smoking Tobacco: Never Assessed Comments Unknown Sex and Gender Information Value Date Recorded Sex Assigned at Female 07/07/2022 10:29 AM EDT Legal Sex Female 10:29 AM EDT Gender Identity Choose not to disclose 10:29 AM EDT Sexual Orientation Choose not to disclose 2021 10:29 AM EDT Plan of Treatment Health Maintenance Due Date Last Done Comments CT Colonography 1979 Colonoscopy 1979 Colorectal Cancer Screening 1979 Depression Screening 1979 FIT DNA/Cologuard 1979 FIT 1979 FOBT 1979 Sigmoidoscopy 1979 Alcohol/Substance Use Screening 1991 Tobacco Screening 1991 Family Planning (PISQ) 1994 Hepatitis B Vaccines (1 of 3 - 19+ 3-dose series) 1998 Pap Smear 2000 Cervical Cancer Screening 2009 HPV/Cotest 2009 Mammogram 2019 COVID-19 Vaccine ( season) 2024 09/13/2021, 12/14/2020, 11/16/2020 Influenza Vaccine (#1) 2024 , 06/02/2017, 07/28/2016, Additional history exists Zoster Vaccines (1 of 2) 2029 DTaP/Tdap/Td Vaccines (3 - Td or Tdap) 01/17/2032 01/16/2022, 11/02/2012, 08/23/2004 RSV Patients and Patients Aged 60 years or older (1 - 1-dose 75+ series) 2054 HIB Vaccines Aged Out No longer eligi [...] patient's age to complete this topic Meningococcal Vaccine Aged Out No cole irene eligible based on patient's age to complete this topic Pneumococcal Vaccine: Pediatrics (0 to 5 Years) and At-Risk Patients (6 to 49) Years) Aged Out No longer eligible based on patient's age to complete this topic RSV under 20 months Aged Out No longe r eligible based on patient's age to complete this topic Rotavirus Vaccines Aged Out No longer eligible based on patient's age to complete this topic
== END 2024-11-08 16:05 | disposition home or self-care (01) ==
PROVIDERS: PCP Internal Medicine; Visit Provider Student in an Organized Health Care Education/Training Program
DX: C73 Malignant neoplasm of thyroid gland (principal); E89.0 Postprocedural hypothyroidism
CPT/HCPCS: 99214

== ENCOUNTER 2024-11-08 15:30 | Outpatient (REF) | payer OTHER, SELFPAY ==
[2024-11-08 17:50] LABS: Free T4 (Free Thyroxine) 1.19 ng/dL (0.71-1.85); Thyroid Stimulating Hormone 12.82 uIU/mL (0.32-4.0)
--- OUTSIDE RECORDS SUMMARY | 2024-11-08 20:03 | XMS_ITS | Encounter Summary ---
Author Organization [facility] Address [address] [place] [address] Care Team Providers Care Demand Planning Manager Name Role Phone Name, [place] HUYNH Primary Care Provider Unavailabl e Name, [place] HUYNH Primary Care Provider Unavailrose mary e Dominic Rudolph MD Primary Care Provider Unava ilable Luther Bowen MD Primary Care Provider Unavail able Name, [place] HUYNH Primary Care Provider Unavailabl e Name, [place] HUYNH Primary Care Provider Unavailabl e Dominic Rudolph MD Primary Care Provider Unava ilable Encounter Details Date Type Department Care Team Description 05/01/2015 Release of Information Medical Records [address] [place] [id number] Abstract, Provider Social History Tobacco Use Types Packs/Day Years Used Date Smoking Tobacco: Never Smokeless Tobacco: Never Alcohol Use Standard Drinks/Week Comments Yes 0 (1 standard drink = 0.6 oz pur e alcohol) socially Sex Assigned at Date Recorded Not on file documented as of this encounter Plan of Treatment Not on file documented as of this encounter Visit Diagnoses Not on filedocumented in this encounter Care Teams Demand Planning Manager Relationship Specialty Start Date End Date [place] Ohara MD PCP - General 07/05/08 11/18/15 [place] Ohara MD PCP - General Internal Medicine 11/19/15 12/06/15 Dominic Rudolph MD PCP - General Internal Medicine 12/07/15 12/17/15 Luther Bowen MD PCP - General Internal Medicine 12/18/15 03/06/16 [place] Ohara MD PCP - General Internal Medicine 03/07/16 02/02/18 [place] Ohara MD PCP - General Internal Medicine 02/03/18 01/11/20 Dominic Rudolph MD PCP - General Internal Medicine 01/12/20 documented as of this encounter
--- OUTSIDE RECORDS SUMMARY | 2024-11-08 20:03 | XMS_ITS | Clinical Summary ---
Author Organization [facility] Address [address] [place] [address] Care Team Providers Care Chicken Handler Name Role Phone Dominic Rudolph MD Primary Care Provider [phone] Surgical History Surgery Date Site/Laterality Comments LAPAROSCOPIC GASTRIC BANDING 06/2013 PROCEDURE: LAP ADJUSTABLE GASTRIC BAND; COMMENT: 09/24/17 removed TONSILLECTOMY PROCEDURE: HISTORICAL TONSILLECTOMY OTHER SURGICAL HISTORY 11/2010 PROCEDURE: ND INSERTION INTRAUTERINE DEVICE IUD; COMMENT: Dr. Carrillo, record indicates removal on 11/29/2010 this was when she had it inserted BARIATRIC SURGERY [id number] PROCEDURE: ND LAPS GSTRC RSTRICTIV PX LONGITUDINAL GASTRECTOMY THYROIDECTOMY 01/24/2014 PROCEDURE: HISTORICAL TOTAL THYROIDECTOMY OTHER SURGICAL HISTORY 01/2020 PROCEDURE: ND DILATION & CURETTAGE DX&/THER NONOBSTETRIC Medical History [...] Recently Relevant to Health Maintenance Care Teams Chicken Handler Relationship Specialty Start Date End Date Dominic Rudolph MD [address] [place] [address] Dr George [place] PCP - General Internal Medicine 01/12/20
--- OUTSIDE RECORDS SUMMARY | 2024-11-08 20:03 | XMS_ITS | Encounter Summary ---
Author Organization [facility] Address [address] [place] [address] Care Team Providers Care Knockout Man Name Role Phone Name, [place] HUYNH Primary Care Provider Unavailrose mary e Name, [place] HUYNH Primary Care Provider Unavailabl e Dominic Rudolph MD Primary Care Provider Unava ilable Reason for Referral * Radiology Services (Routine) - Authorized/Booked Specialty Diagnoses / Procedures Referred By Silvio santana Referred To Contact Radiology Diagnoses At high risk for breast cancer Procedures MRI BREAST BILATERAL Merlyn Gutiérrez PA-C [address] [place] [id number] [facility] [address] [place] [address] Referral ID Status Reason Start Date Expiration Date V isits Requested Visits Authorized [id number] Authorized/B ooked 03/09/2018 03/09/2019 1 1 Encounter Details Date Type Department Care Team Description 03/20/2017 Orders Only Genetic & Disease Counseling - [place] [address] [place] [address] Merlyn Gutiérrez PA-C At high risk for breast cancer (Primary Dx) Social History Tobacco Use Types Packs/Day Years Used Date Smoking Tobacco: Never Smokeless Tobacco: Never Alcohol Use Standard Drinks/Week Comments Yes 0 (1 standard drink = 0.6 oz pur e alcohol) socially Sex Assigned at Date Recorded Not on file documented as of this encounter Plan of Treatment Not on file documented as of this encounter Visit Diagnoses Diagnosis At high risk for breast cancer- Primary documented in this encounter Care Teams Knockout Man Relationship Specialty Start Date End Date Name, MD [place] PCP - General Internal Medicine 03/07/16 02/02/18 Name, MD [place] PCP - General Internal Medicine 02/03/18 01/11/20 Dominic Rudolph MD PCP - General Internal Medicine 01/12/20 documented as of this encounter
--- OUTSIDE RECORDS SUMMARY | 2024-11-08 20:03 | XMS_ITS | Encounter Summary ---
Author Organization [facility] Address [address] [place] [address] Care Team Providers Care Supervisor Poultry Farm Name Role Phone Name, [place] HUYNH Primary [...] Details Date Type Department Care Team Description 02/08/2014 Cv Tech Report Medical Records [address] [place] [id number] Gómez Celis Social History Tobacco Use Types Packs/Day Years [...] on filedocumented in this encounter Care Teams Supervisor Poultry Farm Relationship Specialty Start Date End Date Name, MD [place] PCP - General 07/05/08 11/18/15 [place] Ohara [...]
--- OUTSIDE RECORDS SUMMARY | 2024-11-08 20:03 | XMS_ITS | Clinical Summary ---
Author Organization [facility] Address [address] [place] [address] Care Team Providers Care Client Experience Specialist Name Role Phone Dominic Rudolph MD Primary Care Provider Fidencio ilable Allergies Active Allergy Reactions Severity Noted Date Comments Tape 12/14/2013 Na Benzoate-Sulfamethoxazole -Trimethoprim Hives/Urticaria Medium 06/06/2020 Naproxen 10/08/2005 Eye swelling. Ok with Alieve Seasonal Allergies 06/06/2020 Estrogens Hives/Urticaria 11/05/2005 Medications Medication Sig Dispensed Refills Start Date End Date Status levothyroxine 100 MCG tablet Take 2 Tablets by mouth daily. 0 Active Nutritional Supplements (VITAMIN D BOOSTER OR) Take by mouth daily. 0 Active Cyanocobalamin (VITAMIN B 12 OR) Take by mouth daily. 0 Active Aluminum & Magnesium Hydroxide (MAGNESIUM-ALUMINUM OR) Take by mouth daily. 0 Active phentermine (ADIPEX-P) 37.5 MG tablet Take 1 Tablet by mouth every morning (before breakfast). 0 Active dicyclomine (BENTYL) 20 MG tablet Take 1 Tablet by mouth 4 times daily as needed (abd cramping) for up to 90 days. 120 Tablet 2 01/21/2023 Active Active Problems Problem Noted Date Infertility associated with anovulation 03/27/2020 Last Assessment & Plan: I explained at her age, we do not recommend retirement attempts at conception, but rather early referral to [facility] for possible intervention if she is serious about trying to conceive. We discussed risks of at this age. She will continue PNV. She accepted referral to [facility]. She was informed that she should hear back in 1-2 weeks with an appointment date. If not, she should call back to our office and inquire on getting this arranged. She voiced understanding and agreed. Vitamin D deficiency 03/01/2018 Family history of breast can cer-Pt BRCA negative 01/18/2015. Tyrer-Ge score = 23.2% = high risk 01/18/2015 Hx of thyroid cancer 06/05/2014 Overview: 2013 Thyroidectomy Hypothyroidism, acquired 03/03/2014 GERD (gastroesophageal reflux disease) 0 05/14/2011 Allergic rhinitis 01/21/2011 Herpes simplex without complication 11/06 Overview: Hx of Herpes Labialis Asthma 12/03/2005 Overview: stable since childhood Class 3 severe obesity with body mass in dex (BMI) of 45.0 to 49.9 in adult 12/03/2005 Resolved Problems Problem Noted Date Resolved Date Supervision of other normal 06/06/2020 07/05/2020 Overview: 1. [facility] site: [place] 2. Delivery site: [facility] 3. Dating criteria: LMP only 3. Blood type: A+ 4. Genetic screening: Date: Result: 5. GBS: Date: 6. FOB name: Jaiden Sears 7. Plans A. Epidural or other pain management - B. Labor support identified - C. Tdap - Date:, Flu - Date: D. Breast or Bottle feed: both breast and bottle E. Baby's name - F. Circumcision - 8. Hospital Course: Zika assessment screening: negative History of miscarriage, currently 06/0607/05/2020 Overview: Pt had SAB in December 2019 and a D & C in January. Advanced maternal age in multigravida, first tri mester 06/06/2020 07/05/2020 Overview: Pt is 40 years old. Obesity in 06/06/2020 07/05/2020 Overview: BMI 41.27 Missed 12/29/2019 08/17/2020 Last Assessment & Plan: I recommended she wait until after her first real period to try to conceive again. Has previously been counseled re: risks due to her age. She will continue PNV for now. Will call with issues and see us for AG as due in late summer. S/P thyroidectomy 03/03/2014 02/08/2018 S/P D&C (status post dilation and curettage) 01/24/2020 Overview: 11/16/17 BMI 41.8. 09/24/17 Lap gastrectomy w/lap removal of gastric band, (antrum biopsy) chronic gastritis and lyphoid nodule and H. Pylori identified; Lap Band 06/2013 Thyroid nodule 11/03/2013 02/08/2018 Herpes labialis 10/04/2009 02/08/2018 Vitamin D deficiency 08/27/2009 02/08/2018 Pneumonia 08/23/2008 10/12/2008 Cough 08/21/2008 08/23/2008 Chest pain 08/21/2008 08/23/2008 Sinusitis 08/18/2008 08/23/2008 Sinusitis 08/27/2007 07/21/2008 Acute upper respiratory infections of unspecifie d site 12/22/2006 08/27/2007 Overview: IMO update Immunizations Name Administration Dates Next Due Influenza (> 6 Months) 07/30/2015,2013,07/27/2013,2010,05/24/2010,08/14/2009,06/20/2008 Influenza (>6 Months) Split Preservative Free 07/12/2012 Influenza H1N1 Pandemic Flu Vaccine 08/27/2009 PPD-RBMG 10/06/2001,10/04/2001 TETANUS/DIPTHERIA (ADULT) 08/23/2004 Tdap 11/02/2012 Family History Medical History Relation Name Comments CA Breast Aunt 1 1 maternal aunt; second primary br ca at 40 lupus Aunt 2 maternal aunt d x ~ age 40 Hypertension Father alive at 70, 20 15 Other Maternal Grandfather HTN; al jules at 85, 2015 Diabetes Maternal Grandmother arthrit is; alive at age 89 2015 Hypertension Mother alive at 54 201 5 Other Other 1 maternal gr aun t ? type brain tumor Other 2 niece; at age 9 ovarian cancer Other 3 paternal 1st cousin AL Paternal Grandfather age 70' bladder cancer Paternal Grandmother CA Colon Negative Hx Cancer of the Pancreas Negative Hx Cancer of the Prostate Negative Hx Cervical Cancer Negative Hx Uterine Cancer Negative Hx Relation Name Status Comments Aunt 1 1 Aunt 2 Alive Brother Alive Asthma Father Alive HTN Maternal Grandfather Maternal Grandmother Alive Mother Alive HTN Other 1 Other 2 Other 3 Alive Paternal Grandfather Paternal Grandmother Sister Alive Sesonal allergi es, thyroid problems Social History Tobacco Use Types Packs/Day Years Used Date Smoking Tobacco: Never Smokeless Tobacco: Never Tobacco Cessation:Counseling Given: Not Answered Alcohol Use Standard Drinks/Week Comments Yes 0 (1 standard drink = 0.6 oz pure alcohol) socially, stopped with Sex Assigned at Date Recorded Not on file Last Filed Vital Signs Vital Sign Reading Time Taken Comments Blood Pressure 110/74 01/21/2023 9:56 AM EDT Pulse 82 01/21/2023 9:56 AM EDT Temperature 36.9 ??C (98.4 ??F) 07/01/2021 8:42 AM ED T Respiratory Rate 16 09/03/2020 9:18 AM EST Oxygen Saturation 98% 01/21/2023 9:56 AM EDT Inhaled Oxygen Concentration - - Weight 107.6 kg (237 lb 3.2 oz) 01/21/2023 9:56 AM EDT Height 154.9 cm (5' 1 ) 01/21/2023 9:56 AM EDT Body Mass Index 44.82 01/21/2023 9:56 AM EDT Plan of Treatment Health Maintenance Due Date Last Done Comments Covid-19 Vaccine (#1) 1979 BASELINE HEALTH EXAM 40-64 04/05/201911/02, 05/15/2011, 05/14/2011, Additional history exists Breast Cancer High Risk??Screening??(Annual Breast MRI) 08/24/2020 08/24/2019, 03/19/2017, 02/18/2016, Additional history exists CERVICAL CANCER SCREENING 12/06/20202015, 07/12/2012, 06/13/2011, Additional history exists MAMMOGRAM 07/19/2021 07/19/2020, 02/06, 02/17/2017, Additional history exists INFLUENZA (#1) 2024 07/30/2015, 06/08, 07/27/2013, Additional history exists BMI CHECK/ADVISE 09/07/2024 09/03/2020, 10/2019, 06/15/2020, Additional history exists DEPRESSION SCREENING/FOLLOWUP 09/07/2024 02/18/2019 SOCIAL NEEDS SCREENING 09/07/2024 02/18/2019 CHOLESTEROL SCREENING 10/10/2027 10/10/2022 , 08/14/2020, 10/20/2014, Additional history exists DTAP/TDAP/TD (3 - Td or Tdap) 01/17/2032 01/16/2022, 11/02/2012 PNEUMOCOCCAL VACCINE FOR HIG H RISK PATIENTS (#2) 2044 01/17/2014 (External Complet ion of Vaccination per patient) Care Teams Client Experience Specialist Relationship Specialty Start Date End Date Dominic Rudolph MD PCP - General Internal Medicine 01/12/20
--- OUTSIDE RECORDS SUMMARY | 2024-11-08 20:03 | XMS_ITS | Encounter Summary ---
Author Organization [facility] Address [address] [place] [address] Care Team Providers Care Sugar Reprocess Operator Head Name Role Phone Dominic Rudolph MD Primary Care Provider Unava ilable Reason for Visit * Reason Comments E-prescribe Rx Request Encounter Details Date Type Department Care Team Description 01/04/2023 Refill Bariatric Surgery - [place] [address] [facility] [address] [place] [address] Heike Heller MD [address] [facility] [address] [place] [address] E-prescribe Rx Request Social History Tobacco Use Types Packs/Day Years Used Date Smoking Tobacco: Never Smokeless Tobacco: Never Alcohol Use Standard Drinks/Week Comments Yes 0 (1 standard drink = 0.6 oz pure alcohol) socially, stopped with Sex Assigned at Date Recorded Not on file COVID-19 Exposure Response Date Recorded In the last 10 days, have yo u been in contact with someone who was confirmed or suspected to have Coronavirus/COVID-19? Unable to assess 01/07/2023 7:48 AM EDT documented as of this encounter Miscellaneous Notes * Telephone Encounter - Heike Heller MD - 01/06/2023 11:46 AM EDT Only needs 12 capsules documented in this encounter Plan of Treatment Not on file documented as of this encounter Visit Diagnoses Not on filedocumented in this encounter Care Teams Sugar Reprocess Operator Head Relationship Specialty Start Date End Date Dominic Rudolph MD PCP - General Internal Medicine 01/12/20 documented as of this encounter
--- OUTSIDE RECORDS SUMMARY | 2024-11-08 20:03 | XMS_ITS | Encounter Summary ---
Author Organization [facility] Address [address] [place] [address] Care Team Providers Care Public Information Specialist Name Role Phone Name, [place] HUYNH Primary [...] Unava ilable Reason for Visit * Reason Onset Date Comments Provider Call Back 01/26/2014 Encounter Details Date Type Department Care Team Description 01/26/2014 Telephone General Surgery [address] [place] [address] Chato Calixto MD [address] [place] [address] Provider Call Back Social History Tobacco Use Types Packs/Day Years Used Date Smoking Tobacco: Never Smokeless Tobacco: Never Alcohol Use Standard Drinks/Week Comments Yes 0 (1 standard drink = 0.6 oz pur e alcohol) socially Sex Assigned at Date Recorded Not on file documented as of this encounter Miscellaneous Notes * Telephone Encounter - Frances Evans - 01/26/2014 8:38 AM EDT Error documented in this encounter Plan of Treatment Not on file documented as of this encounter Visit Diagnoses Not on filedocumented in this encounter Care Teams Public Information Specialist Relationship Specialty Start Date End Date Name, MD [place] PCP - General 07/05/08 11/18/15 Name, MD [place] PCP - General Internal Medicine 11/19/15 12/06/15 Dominic Rudolph MD PCP - General Internal Medicine 12/07/15 12/17/15 Luther Bowen MD PCP - General Internal Medicine 12/18/15 03/06/16 Name, MD [place] PCP - General Internal Medicine 03/07/16 02/02/18 Lev, MD [place] PCP - General Internal Medicine 02/03/18 01/11/20 Dominic Rudolhp MD PCP - General Internal Medicine 01/12/20 documented as of this encounter
--- OUTSIDE RECORDS SUMMARY | 2024-11-08 20:03 | XMS_ITS | Encounter Summary ---
Author Organization [facility] Address [facility] [place] [address] Care Team Providers Care Furniture Reproducer Name Role Phone Name, [place] HUYNH Primary [...] Details Date Type Department Care Team Description 08/05/2015 Refill Adult Medicine [address] [address] Luther Bowen MD Social History Tobacco Use Types Packs/Day Years Used Date Smoking Tobacco: Never Smokeless Tobacco: Never Alcohol Use Standard Drinks/Week Comments Yes 0 (1 standard drink = 0.6 oz pur e alcohol) socially Sex Assigned at Date Recorded Not on file documented as of this encounter Miscellaneous Notes * Telephone Encounter - Lesli Roberts - 08/06/2015 10:30 AM EST Manually faxed to pharmacy * Telephone Encounter - Luther Bowen MD - 08/06/2015 10:04 AM EST Please fax to pharmacy * Telephone Encounter - Lindsey PerezPЕленаN. - 08/06/2015 9:23 AM EST Last office visit 07/30/15 and follow up booked for 11/02/15 Component Value Date TSH 2.18 08/01/2015 * Telephone Encounter - Lindsey Sher L.P.NЕлена - 08/06/2015 9:23 AM ESTFrom: [place] Man To: Luther Bowen MD Sent: 08/05/2015 4:57 PM EST Subject: Medication Renewal Request Original authorizing provider: MD Virginia Lazo would like a refill of the following medications: SYNTHROID 200 MCG tablet [Luther Bowen MD] Preferred pharmacy: [facility] [address] [place] [address] Comment: documented in this encounter Plan of Treatment Not on file documented as of this encounter Visit Diagnoses Not on filedocumented in this encounter Care Teams Furniture Reproducer Relationship Specialty Start Date End Date [place] [...]
--- OUTSIDE RECORDS SUMMARY | 2024-11-08 20:03 | XMS_ITS | Encounter Summary ---
Author Organization [facility] Address [address] [place] [address] Care Team Providers Care Hand Ii Cutter Name Role Phone Name, [place] HUYNH Primary Care Provider Unavailabl e Name, [place] HUYNH Primary Care Provider UnavailDominic Umana MD Primary Care Provider Unava ilable Luther Bowen MD Primary Care Provider Unavail able Name, [place] HUYNH Primary Care Provider Unavailabl e Name, [place] HUYNH Primary Care Provider Unavailabl e Dominic Rudolph MD Primary Care Provider Unava ilable Encounter Details Date Type Department Care Team Description 02/27/2014 Hospital Medical Records [address] [place] [address] Gómez Celis Social History Tobacco Use Types [...] on filedocumented in this encounter Care Teams Hand Ii Cutter Relationship Specialty Start Date End Date Name, MD [place] PCP - General 07/05/08 11/18/15 [place] Ohara MD PCP - General Internal Medicine 11/19/15 12/06/15 Dominic Rudolph MD PCP - General Internal Medicine 12/07/15 12/17/15 Luther Bowen MD PCP - General Internal Medicine 12/18/15 03/06/16 Bsoton Ohara MD PCP - General Internal Medicine 03/07/16 02/02/18 [place] Ohara MD PCP - General Internal Medicine 02/03/18 01/11/20 Dominic Rudolph MD PCP - General Internal Medicine 01/12/20 documented as of this encounter
--- OUTSIDE RECORDS SUMMARY | 2024-11-08 20:03 | XMS_ITS | Encounter Summary ---
Author Organization [facility] Address [address] [place] [address] Care Team Providers Care Pickler Helper Name Role Phone Dominic Rudolph MD Primary Care Provider Fidencio bolden Encounter Details Date Type Department Care Team Description 06/20/2020 Orders Only Medical Records [address] [place] [address] Melida Ascencio DO Social History Tobacco Use Types Packs/Day Years Used Date Smoking Tobacco: Never Smokeless Tobacco: Never Alcohol Use Standard Drinks/Week Comments Yes 0 (1 standard drink = 0.6 oz pure alcohol) socially, stopped with Sex Assigned at Date Recorded Not on file COVID-19 Exposure Response Date Recorded In the last month, have you been in contact with someone who was confirmed or suspected to have Coronavirus / COVID-19? No / Unsure 06/15/2020 8:53 AM EDT documented as of this encounter Plan of Treatment Not on file documented as of this encounter Procedures Procedure Name Priority Date/Time Associated Diagnosis Comments OUTSIDE PATHOLOGY Routine 06/18/2020 documented in this encounter Results * OUTSIDE PATHOLOGY (06/18/2020) Melida Ascencio DO OUTSIDE LAB documented in this encounter Visit Diagnoses Not on filedocumented in this encounter Care Teams Pickler Helper Relationship Specialty Start Date End Date Dominic Rudolph MD PCP - General Internal Medicine 01/12/20 documented as of this encounter
--- OUTSIDE RECORDS SUMMARY | 2024-11-08 20:03 | XMS_ITS | Encounter Summary ---
Author Organization [facility] Address [address] [place] [address] Care Team Providers Care Block Greaser Name Role Phone Name, [place] HUYNH Primary [...] Details Date Type Department Care Team Description 03/02/2015 Pt. Non Urgent Medical Question Adult Medicine [address] [address] Benjamin Blair PA-C [address] [place] [address] Social History Tobacco Use Types Packs/Day Years Used Date Smoking Tobacco: Never Smokeless Tobacco: Never Alcohol Use Standard Drinks/Week Comments Yes 0 (1 standard drink = 0.6 oz pur e alcohol) socially Sex Assigned at Date Recorded Not on file documented as of this encounter Progress Notes * Courtney Roberts M.A. - 03/05/2015 8:06 AM EDTFrom: [place] Donovan To: Benjamin Blair PA-C Sent: 03/02/2015 6:02 PM EDT Subject: Cough Wonder if I can get a prescription for the cough. I haven't stop coughing. Plus when I'm laying down is when it gets worst documented in this encounter Plan of Treatment Not on file documented as of this encounter Visit Diagnoses Not on filedocumented in this encounter Care Teams Block Greaser Relationship Specialty Start Date End Date Name, MD [place] PCP - General 07/05/08 11/18/15 NameBoston MD PCP - General Internal Medicine 11/19/15 [...]
--- OUTSIDE RECORDS SUMMARY | 2024-11-08 20:03 | XMS_ITS | Encounter Summary ---
Author Organization [facility] Address [address] [place] [address] Care Team Providers Care Telephone Station Installer Name Role Phone Name, [place] HUYNH Primary Care Provider Dominic Garcia MD Primary Care Provider Unava ilable Encounter Details Date Type Department Care Team Description 05/27/2018 Pt. Non Urgent Medical Question OBGYN - [address] [address] Dee Keane CNM [address] [place] [address] Social History Tobacco Use Types Packs/Day Years Used Date Smoking Tobacco: Never Smokeless Tobacco: Never Alcohol Use Standard Drinks/Week Comments Yes 0 (1 standard drink = 0.6 oz pur e alcohol) socially Sex Assigned at Date Recorded Not on file documented as of this encounter Progress Notes * Krystyna Mckay R.N. - 05/27/2018 8:59 AM EDTFrom: [place] Man To: Dee Keane CNM Sent: 05/27/2018 6:20 AM EDT Subject: Prescription Would like to know if i can get another prescription of the medicine you gave me for the yeast infection. Im dtill have the discomfort and irritation documented in this encounter Plan of Treatment Not on file documented as of this encounter Visit Diagnoses Not on filedocumented in this encounter Care Teams Telephone Station Installer Relationship Specialty Start Date End Date Name, MD [place] PCP - General Internal Medicine 02/03/18 01/11/20 Dominic Rudolph MD PCP - General Internal Medicine 01/12/20 documented as of this encounter
--- OUTSIDE RECORDS SUMMARY | 2024-11-08 20:03 | XMS_ITS | Encounter Summary ---
Author Organization [facility] Address [facility] [place] [address] Care Team Providers Care Strapping Machine Operator Name Role Phone Name, [place] HUYNH Primary [...] Details Date Type Department Care Team Description 06/21/2014 Pt. Non Urgent Medic al Question Adult Medicine [address] [address] Luther Bowen MD Social History Tobacco Use Types Packs/Day Years Used Date Smoking Tobacco: Never Smokeless Tobacco: Never Alcohol Use Standard Drinks/Week Comments Yes 0 (1 standard drink = 0.6 oz pur e alcohol) socially Sex Assigned at Date Recorded Not on file documented as of this encounter Progress Notes * Mona Hope M.A. - 06/21/2014 2:10 PM EDTFrom: [place] Man To: Luther Bowen MD Sent: 06/21/2014 12:31 PM EDT Subject: Results Wondering if you got the results back of the blood work I had done 9 days ago. documented in this encounter Plan of Treatment Not on file documented as of this encounter Visit Diagnoses Not on filedocumented in this encounter Care Teams Strapping Machine Operator Relationship Specialty Start Date End Date Name, [...]
--- OUTSIDE RECORDS SUMMARY | 2024-11-08 20:03 | XMS_ITS | Encounter Summary ---
Author Organization [facility] Address [address] [place] [address] Care Team Providers Care Art Museum Docent Name Role Phone Name, [place] HUYNH Primary [...] Details Date Type Department Care Team Description 09/03/2010 Night Triage Doc Medical Records [address] [place] [address] Abstract, Provider Social History Tobacco Use Types Packs/Day Years Used Date Smoking Tobacco: Never Alcohol Use Standard Drinks/Week Comments Yes 0 (1 standard drink = 0.6 oz pur e alcohol) socially Sex Assigned at Date Recorded Not on file documented as of this encounter Plan of Treatment Not on file documented as of this encounter Visit Diagnoses Not on filedocumented in this encounter Care Teams Art Museum Docent Relationship Specialty Start Date End Date [place] [...]
--- OUTSIDE RECORDS SUMMARY | 2024-11-08 20:03 | XMS_ITS | Encounter Summary ---
Author Organization [facility] Address [address] [place] [address] Care Team Providers Care Load Mixer Name Role Phone Name, [place] HUYNH Primary [...] Details Date Type Department Care Team Description 06/30/2013 Hospital Medical Records [address] [place] [address] Loly Aceves III, MD Social History Tobacco Use Types Packs/Day [...] on filedocumented in this encounter Care Teams Load Mixer Relationship Specialty Start Date End Date Lev, MD [place] PCP - General 07/05/08 11/18/15 [...]
--- OUTSIDE RECORDS SUMMARY | 2024-11-08 20:03 | XMS_ITS | Encounter Summary ---
Author Organization [facility] Address [address] [place] [address] Care Team Providers Care Meter Reader Name Role Phone Name, [place] HUYNH Primary Care Provider Douglas bullock NameBoston MD Primary Care Provider Douglas e Dominic Rudolph MD Primary Care Provider Unava ilable Encounter Details Date Type Department Care Team Description 11/03/2017 Pt. Non Urgent Medic al Question Adult Medicine [address] [address] Luther Bowen MD Social History Tobacco Use Types Packs/Day Years Used Date Smoking Tobacco: Never Smokeless Tobacco: Never Alcohol Use Standard Drinks/Week Comments Yes 0 (1 standard drink = 0.6 oz pur e alcohol) socially Sex Assigned at Date Recorded Not on file documented as of this encounter Progress Notes * Mayda Mares M.A. - 11/03/2017 2:26 PM ESTFrom: [place] Man To: Luther Bowen MD Sent: 11/03/2017 12:44 PM EST Subject: Question regarding THYROGLOBULIN I have a question about THYROGLOBULIN resulted on 10/22/17, 12:45 PM. Need more details about the test. Don't understand documented in this encounter Plan of Treatment Not on file documented as of this encounter Visit Diagnoses Not on filedocumented in this encounter Care Teams Meter Reader Relationship Specialty Start Date End Date Lev, MD [place] PCP - General Internal Medicine 03/07/16 02/02/18 [place] Ohara MD PCP - General Internal Medicine 02/03/18 01/11/20 Dominic Rudolph MD PCP - General Internal Medicine 01/12/20 documented as of this encounter
--- OUTSIDE RECORDS SUMMARY | 2024-11-08 20:03 | XMS_ITS | Encounter Summary ---
Author Organization [facility] Address [address] [place] [address] Care Team Providers Care Freight Elevator Operator Name Role Phone Dominic Rudolph MD Primary Care Provider Fidencio bolden Encounter Details Date Type Department Care Team Description 09/03/2020 Telephone OBGYN - [place] [address] [place] [address] Ama Grajeda CNM [address] [place] [address] Social History Tobacco Use Types Packs/Day Years [...] have Coronavirus / COVID-19? No / Unsure 09/05/2020 12:01 PM EST documented as of this encounter Plan of Treatment Not on file documented as of this encounter Visit Diagnoses Not on filedocumented in this encounter Care Teams Freight Elevator Operator Relationship Specialty Start Date End Date Dominic Rudolph MD PCP - General Internal Medicine 01/12/20 documented as of this encounter
--- OUTSIDE RECORDS SUMMARY | 2024-11-08 20:03 | XMS_ITS | Encounter Summary ---
Author Organization [facility] Address [facility] [place] [address] Care Team Providers Care Finishing Frame Runner Name Role Phone Name, [place] HUYNH Primary Care Provider Unavailrose mary e Name, [place] HUYNH Primary Care Provider Unavailabl e Dominic Rudolph MD Primary Care Provider Unava ilable Reason for Visit * Reason Onset Date Comments Provider Call Back 09/16/2017 medication problems 09/16/2017 Prior Authorization 09/16/2017 Encounter Details Date Type Department Care Team Description 09/16/2017 Telephone Adult Medicine [address] [address] Luther Bowen MD Provider Call Back; medication problems; Prior Authorization Social History Tobacco Use Types Packs/Day Years Used Date Smoking Tobacco: Never Smokeless Tobacco: Never Alcohol Use Standard Drinks/Week Comments Yes 0 (1 standard drink = 0.6 oz pur e alcohol) socially Sex Assigned at Date Recorded Not on file documented as of this encounter Miscellaneous Notes * Telephone Encounter - Payal Otoole M.A. - 09/17/2017 5:16 PM EST Prior auth done by form and [facility] Pt tried and failed levothyroxine 02/02/14-08/05/15 did not work well Pt has been on the synthroid brand name since 08/05/2015 and labs are stable Dx E03.9,C73 * Telephone Encounter - Luther Bowen MD - 09/17/2017 4:45 PM EST The patient says the generic pills did not work but cannot be more specific. * Telephone Encounter - Payal Otoole M.A. - 09/17/2017 4:23 PM EST I need to know why pt take name brand synthroid Please reply back to p [phone] Prior Auth pool Payal Otoole M.A. Regional Prior Authorizations Ext [id number] * Telephone Encounter - Karlene Rollins - 09/16/2017 1:23 PM EST Pre Authorization for Medication-do not complete and send this encounter unless you have the fax from the pharmacy. Is this a Cover My Meds request: Yes -- Osman Code [id number] Name of Medication SYNTHROID 200 MCG tablet Dose of Medication as stated above How does patient take this med? TAKE 1 TABLET DAILY WITH 2 TABS TAKEN ON THE FIRST AND THE 15TH OF THE MONTH What Pharmacy did the fax come from: [facility] fax #: [phone] [employer] Information from fax: What Prescription Plan does the patient have? [facility] BIN/PCN if applicable: not stated on fax Cardholder ID: [id number] Person Code: not stated on fax Relationship Code: not stated on fax Help desk phone: only phone # on fax is [phone] * Telephone Encounter - Aida Sagastume - 09/16/2017 1:18 PM EST Who is calling? The patient Name of the medication SYNTHROID 200 MCG tablet What is the specific problem or interaction? Patient states that the pharmacy has been faxing a priour auth for this medication, patient needs this medication has been out of this since 09/08/17 If the patient is having a problem with taking the med - how long has the problem been going on? N/A documented in this encounter Plan of Treatment Not on file documented as of this encounter Visit Diagnoses Not on filedocumented in this encounter Care Teams Finishing Frame Runner Relationship Specialty Start Date End Date Name, MD [place] PCP - General Internal Medicine 03/07/16 02/02/18 Name, MD [place] PCP - General Internal Medicine 02/03/18 01/11/20 Dominic Rudolph MD PCP - General Internal Medicine 01/12/20 documented as of this encounter
--- OUTSIDE RECORDS SUMMARY | 2024-11-08 20:03 | XMS_ITS | Encounter Summary ---
Author Organization [facility] Address [address] [place] [address] Care Team Providers Care Core Drill Operator Name Role Phone Dominic Rudolph MD Primary Care Provider Fidencio bolden Encounter Details Date Type Department Care Team Description 07/23/2020 [facility] Medical Records [address] [place] [address] Abstract, Provider Social History Tobacco Use Types [...] have Coronavirus / COVID-19? No / Unsure 07/19/2020 4:10 PM EST documented as of this encounter Plan of Treatment Not on file documented as of this encounter Visit Diagnoses Not on filedocumented in this encounter Care Teams Core Drill Operator Relationship Specialty Start Date End Date Dominic Rudolph MD PCP - General Internal Medicine 01/12/20 documented as of this encounter
--- OUTSIDE RECORDS SUMMARY | 2024-11-08 20:03 | XMS_ITS | Encounter Summary ---
Author Organization [facility] Address [address] [place] [address] Care Team Providers Care Documentation Spec Name Role Phone Name, [place] HUYNH Primary Care Provider Dominic Garcia MD Primary Care Provider Unava ilable Encounter Details Date Type Department Care Team Description 03/01/2018 Release of Information Medical Records [address] [place] [address] Abstract, Provider Social History Tobacco Use Types [...] on filedocumented in this encounter Care Teams Documentation Spec Relationship Specialty Start Date End Date Name, MD [place] PCP - General Internal Medicine 02/03/18 01/11/20 Dominic Rudolph MD PCP - General Internal Medicine 01/12/20 documented as of this encounter
--- OUTSIDE RECORDS SUMMARY | 2024-11-08 20:03 | XMS_ITS | Encounter Summary ---
Author Organization [facility] Address [address] [place] [address] Care Team Providers Care Stone Cleaner Name Role Phone Name, [place] HUYNH Primary [...] Details Date Type Department Care Team Description 03/05/2015 Pt. Non Urgent Medic al Question Adult Medicine [address] [address] [place] Ohara MD Social History Tobacco Use Types Packs/Day Years Used Date Smoking Tobacco: Never Smokeless Tobacco: Never Alcohol Use Standard Drinks/Week Comments Yes 0 (1 standard drink = 0.6 oz pur e alcohol) socially Sex Assigned at Date Recorded Not on file documented as of this encounter Progress Notes * Courtney Roberts M.A. - 03/05/2015 11:16 AM EDTFrom: [place] Man To: [place] Ohara MD Sent: 03/05/2015 10:32 AM EDT Subject: Bad cough I've been with a bad cough since last Thursday. I went to the office on Thursday. I got antibiotics prescribed for an ear infection but nothing for the cough. Migdalia been using over the counter meds for the cough plus using my asthma machine & it seems not getting better. Even my chest hurts when I breath & cough. documented in this encounter Plan of Treatment Not on file documented as of this encounter Visit Diagnoses Not on filedocumented in this encounter Care Teams Stone Cleaner Relationship Specialty Start Date End Date Lev, [...]
--- OUTSIDE RECORDS SUMMARY | 2024-11-08 20:03 | XMS_ITS | Encounter Summary ---
Author Organization [facility] Address [address] [place] [address] Care Team Providers Care Car Restorer Name Role Phone Name, [place] HUYNH Primary [...] Details Date Type Department Care Team Description 01/04/2013 [facility] Teacher Report Medical Records [address] [place] [address] Loly Aceves III, MD Social History Tobacco [...] on filedocumented in this encounter Care Teams Car Restorer Relationship Specialty Start Date End Date Lev, [...]
--- OUTSIDE RECORDS SUMMARY | 2024-11-08 20:03 | XMS_ITS | Encounter Summary ---
Author Organization [facility] Address [address] [place] [address] Care Team Providers Care Picture Framer Name Role Phone Name, [place] HUYNH Primary Care Provider [place] Rush MD Primary Care Provider Unavailrose mary e Dominic Rudolph MD Primary Care Provider Unava ilable Encounter Details Date Type Department Care Team Description 11/27/2017 Carbonizer Tester Report Medical Records [address] [place] [address] Emily Ramey MD Social History Tobacco Use Types Packs/Day [...] on filedocumented in this encounter Care Teams Picture Framer Relationship Specialty Start Date End Date [place] Ohara MD PCP - General Internal Medicine 03/07/16 02/02/18 [place] Ohara MD PCP - General Internal Medicine 02/03/18 01/11/20 Dominic Rudolph MD PCP - General Internal Medicine 01/12/20 documented as of this encounter
--- OUTSIDE RECORDS SUMMARY | 2024-11-08 20:03 | XMS_ITS | Encounter Summary ---
Author Organization [facility] Address [address] [place] [address] Care Team Providers Care Physician Practice Manager Name Role Phone Name, [place] HUYNH Primary Care Provider Douglas bullock Name, [place] HUYNH Primary Care Provider Douglas e Dominic Rudolph MD Primary Care Provider Unava ilable Encounter Details Date Type Department Care Team Description 06/10/2017 Pt. Non Urgent Medic al Question OBGYN - [address] [address] Elodia Hale DO Social History Tobacco Use Types Packs/Day Years Used Date Smoking Tobacco: Never Smokeless Tobacco: Never Alcohol Use Standard Drinks/Week Comments Yes 0 (1 standard drink = 0.6 oz pur e alcohol) socially Sex Assigned at Date Recorded Not on file documented as of this encounter Progress Notes * Renee Andrews R.N. - 06/10/2017 8:51 AM EDTFrom: [place] Man To: Elodia Hale DO Sent: 06/10/2017 6:11 AM EDT Subject: Question regarding LAMB VAG, DNA, DIR PROBE I have a question about LAMB VAG, DNA, DIR PROBE resulted on 06/02/17, 9:46 PM. I finished all the medication prescribed ut also I got my spotting of every month and I've been experiencing itchiness like if I have a yeast infection. Should I have to be seen again or can you put a prescription for that on the pharmacy documented in this encounter Plan of Treatment Not on file documented as of this encounter Visit Diagnoses Not on filedocumented in this encounter Care Teams Physician Practice Manager Relationship Specialty Start Date End Date Name, MD [place] PCP - General Internal Medicine 03/07/16 02/02/18 Name, MD [place] PCP - General Internal Medicine 02/03/18 01/11/20 Dominic Rudolph MD PCP - General Internal Medicine 01/12/20 documented as of this encounter
--- OUTSIDE RECORDS SUMMARY | 2024-11-08 20:03 | XMS_ITS | Encounter Summary ---
Author Organization [facility] Address [address] [place] [address] Care Team Providers Care Rehabilitation Team Lead Name Role Phone Name, [place] HUYNH Primary [...] Date Type Department Care Team Description 03/02/2015 Button Maker And Installer Report Medical Records [address] [place] [address] Gómez Celis Social History Tobacco Use Types [...] on filedocumented in this encounter Care Teams Rehabilitation Team Lead Relationship Specialty Start Date End Date Name, [...]
--- OUTSIDE RECORDS SUMMARY | 2024-11-08 20:03 | XMS_ITS | Encounter Summary ---
Author Organization [facility] Address [facility] [place] [address] Care Team Providers Care Senior Billing Consultant Name Role Phone [place] Ohara MD Primary Care Provider [place] Rush MD Primary Care Provider Unavailrose mary e Dominic Rudolph MD Primary Care Provider Unava ilable Encounter Details Date Type Department Care Team Description 09/24/2017 [facility] Medical Records [address] [place] [address] Rosmery Jay MD Social History Tobacco Use Types Packs/Day [...] on filedocumented in this encounter Care Teams Senior Billing Consultant Relationship Specialty Start Date End Date [place] Ohara MD PCP - General Internal Medicine 03/07/16 02/02/18 [place] Ohara MD PCP - General Internal Medicine 02/03/18 01/11/20 Dominic Rudolph MD PCP - General Internal Medicine 01/12/20 documented as of this encounter
--- OUTSIDE RECORDS SUMMARY | 2024-11-08 20:03 | XMS_ITS | Encounter Summary ---
Author Organization [facility] Address [address] [place] [address] Care Team Providers Care Web Worker Name Role Phone Name, [place] HUYNH Primary [...] for Visit * Reason Onset Date Comments TEST RESULTS 06/13/2014 Encounter Details Date Type Department Care Team Description 06/13/2014 [place] [facility] [address] [address] Name, MD [place] TEST RESULTS Social History Tobacco Use Types Packs/Day Years Used Date Smoking Tobacco: Never Smokeless Tobacco: Never Alcohol Use Standard Drinks/Week Comments Yes 0 (1 standard drink = 0.6 oz pur e alcohol) socially Sex Assigned at Date Recorded Not on file documented as of this encounter Miscellaneous Notes * Telephone Encounter - Mona Hope M.A. - 06/13/2014 1:15 PM EDT Patient notified * Telephone Encounter - Luther Bowen MD - 06/13/2014 12:18 PM EDT Please let patient know it takes several days for thyroglobulin to come back. I will contact her when lab results are available. * Telephone Encounter - Milly Chowdary - 06/13/2014 10:20 AM EDT Inform patient: ANY URGENT OR ABNORMAL RESULTS WIILL RESULT IN A CALL BACK TO THE PATIENT JACKIE. Type of test: :labs, doesn't understand results Date test was performed: 06/12/14 Where was the test performed: [facility] [place] Who ordered this test?: Dr. Bowen Is the doctor here today?: YES Can the message wait until the doctor returns?: YES IF PATIENT'S PCP IS NOT IN INSTRUCT PATIENT THAT THEY WILL RECEIVE A CALL BACK WHEN THE PCP IS IN THE OFFICE NEXT. documented in this encounter Plan of Treatment Not on file documented as of this encounter Visit Diagnoses Not on filedocumented in this encounter Care Teams Web Worker Relationship Specialty Start Date End Date Lev, [...]
--- OUTSIDE RECORDS SUMMARY | 2024-11-08 20:03 | XMS_ITS | Clinical Summary ---
Author Organization [facility] Address [address] [place] [address] [address] [place] [address] Care Team Providers Care Auto Body Shop Manager Name Role Phone Unavailable Primary Care Provider [...]
--- OUTSIDE RECORDS SUMMARY | 2024-11-08 20:03 | XMS_ITS | Encounter Summary ---
Author Organization [facility] Address [address] [place] [address] Care Team Providers Care Stave Block Roller Name Role Phone Name, [place] HUYNH Primary [...] Details Date Type Department Care Team Description 05/19/2013 Microchip Specialist Report Medical Records [address] [place] [address] Rosas Pastrana Social History Tobacco Use Types Packs/Day Years [...] on filedocumented in this encounter Care Teams Stave Block Roller Relationship Specialty Start Date End Date Name, [...]
[2024-11-14 11:38] LABS: Thyroglobulin Antibodies 3 IU/mL (< or = 1)
[2024-11-20 20:23] LABS: Thyroglobulin Antibody 3 IU/mL (<=1); Thyroglobulin LC/MS/MS <0.4 ng/mL (Athyrotic: <0)
== END 2024-11-08 15:31 | disposition home or self-care (01) ==
LOC: HO.LAB 15:30
PROVIDERS: PCP Internal Medicine; Visit Provider Student in an Organized Health Care Education/Training Program
DX: C73 Malignant neoplasm of thyroid gland (principal); E89.0 Postprocedural hypothyroidism
CPT/HCPCS: 36415; 84432; 84439; 84443; 84590; 86800

== ENCOUNTER 2024-11-29 15:40 | Outpatient (REF) | payer OTHER, SELFPAY ==
--- NOTE | ~2024-11-29 | US_ITS ---
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 Comparison: None. Findings: Patient underwent total thyroidectomy 11 years prior. Ultrasound evaluation of the cervical lymph nodes was performed. Multiple bilateral jugular lymph nodes are identified. The technologist notes that many of these lymph nodes are new since prior study. Patient reportedly had a prior examination performed June 19, 2023. Please note that I do not have access to those images or report at this time. A total of 7 right jugular lymph nodes are identified. These measure up to 19 x 5 x 8 mm in size. There is a submental lymph node to the right of midline without a fatty hilum measuring 7 x 4 x 4 mm in size. Level 1B lymph nodes measure up to 10 x 3 x 6 mm in size without a definitive fatty hilum. A total of 4 left jugular lymph nodes are identified. These each have a fatty hilum. Impression: Indeterminate lymph nodes along the right jugular lymph node chain as above. Although I do not have the patient's prior imaging studies for review, this technologist labels these as ???new??? lymph nodes. Clinical correlation and direct correlation with the patient's prior imaging studies suggested. This document has been electronically signed by: Gómez Dempsey MD on 12/01/2024 06:09:04
--- OUTSIDE RECORDS SUMMARY | 2024-11-29 19:26 | XMS_ITS | Clinical Summary ---
Author Organization [facility] Address [address] [place] [address] Care Team Providers Care Story Teller Name Role Phone Dominic Rudolph MD Primary Care Provider [phone] Surgical History Surgery Date Site/Laterality Comments LAPAROSCOPIC GASTRIC BANDING 06/2013 PROCEDURE: LAP ADJUSTABLE GASTRIC BAND; COMMENT: 09/24/17 removed TONSILLECTOMY PROCEDURE: HISTORICAL TONSILLECTOMY OTHER SURGICAL HISTORY 11/2010 PROCEDURE: GA INSERTION INTRAUTERINE DEVICE IUD; COMMENT: Dr. Carrillo, record indicates removal on 11/29/2010 this was when she had it inserted BARIATRIC SURGERY [id number] PROCEDURE: GA LAPS GSTRC RSTRICTIV PX LONGITUDINAL GASTRECTOMY THYROIDECTOMY 01/24/2014 PROCEDURE: HISTORICAL TOTAL THYROIDECTOMY OTHER SURGICAL HISTORY 01/2020 PROCEDURE: GA DILATION & CURETTAGE DX&/THER NONOBSTETRIC Medical History [...] Weight 108 kg (237 lb 3.2 oz) 9:56 AM EDT Height 154.9 cm (5' [...] 07/19/2021 07/19/20, 02/25/2018, 03/19/2017, Additional history exists Cholesterol Screening (Lipid Panel) 08/06/2022 Colorectal Cancer Screening: Colonoscopy 08/06/2022 Depression Screening 08/06/2022 HIV Screening 08/06/2022 Hepatitis C Screening 08/06/2022 Social Influencers of Health Screening 08/06/2022 COVID-19 Vaccine (4 - season) 2024 09/13/2021, 12/14/2020, 11/16/2020 Influenza Vaccine (#1) 2024 , 06/02/2017, 07/28/2016, Additional history exists DTaP,Tdap,and Td Vaccines (4 - Td or Tdap) 01/17/2032 01/16/2022, 11/02/2012, 08/23/2004 HIB Vaccines Aged Out No longer eligi [...] Recently Relevant to Health Maintenance Care Teams Story Teller Relationship Specialty Start Date End Date Dominic Rudolph MD [address] [place] [address] Dr George [place] PCP - General Internal Medicine 01/12/20
--- OUTSIDE RECORDS SUMMARY | 2024-11-29 19:26 | XMS_ITS | Clinical Summary ---
Author Organization [facility] Address [address] [place] [address] [address] [place] [address] Care Team Providers Care Burnisher Name Role Phone Unavailable Primary Care Provider [...]
== END 2024-11-29 15:41 | disposition home or self-care (01) ==
LOC: HO.US 15:40
PROVIDERS: PCP Internal Medicine; Visit Provider Student in an Organized Health Care Education/Training Program
DX: C73 Malignant neoplasm of thyroid gland (principal)
CPT/HCPCS: 76536

== ENCOUNTER → 2024-11-29 15:43 | Outpatient (BNV) | payer OTHER, SELFPAY | PROVIDERS: PCP Internal Medicine; Visit Provider Radiology Diagnostic Radiology | DX: R59.0 Localized enlarged lymph nodes (principal) | CPT/HCPCS: 76536 ==

== ENCOUNTER 2025-01-02 06:11 | Outpatient (REF) | payer OTHER, SELFPAY ==
--- OUTSIDE RECORDS SUMMARY | 2025-01-02 06:13 | XMS_ITS | Clinical Summary ---
Author Organization [employer] Address [address] [place] [address] [address] [place] [address] Care Team Providers Care It Communications Specialist Name Role Phone Unavailable Primary Care Provider [...]
--- OUTSIDE RECORDS SUMMARY | 2025-01-02 06:13 | XMS_ITS | Clinical Summary ---
Author Organization [facility] Address [address] [place] [address] Care Team Providers Care Holiday Detector Operator Name Role Phone Dominic Rudolph MD Primary Care Provider [phone] Surgical History Surgery Date Site/Laterality Comments LAPAROSCOPIC GASTRIC BANDING 06/2013 PROCEDURE: LAP ADJUSTABLE GASTRIC BAND; COMMENT: 09/24/17 removed TONSILLECTOMY PROCEDURE: HISTORICAL TONSILLECTOMY OTHER SURGICAL HISTORY 11/2010 PROCEDURE: MO INSERTION INTRAUTERINE DEVICE IUD; COMMENT: Dr. Carrillo, record indicates removal on 11/29/2010 this was when she had it inserted BARIATRIC SURGERY [id number] PROCEDURE: MO LAPS GSTRC RSTRICTIV PX LONGITUDINAL GASTRECTOMY THYROIDECTOMY 01/24/2014 PROCEDURE: HISTORICAL TOTAL THYROIDECTOMY OTHER SURGICAL HISTORY 01/2020 PROCEDURE: MO DILATION & CURETTAGE DX&/THER NONOBSTETRIC Medical History [...] obesity with BMI of 4 0.0-44.9, adult (CMS/HCC V24, CMS/HCC V28) 12/03/2005 DX:Morbid obesity wit h BMI of 40.0-44.9, adult ([facility]) S/P D&C (status post dilatio n and [...] jules at 84, 2015 Diabetes Maternal Grandmother arthtrey is; alive at age 89 2015 Hypertension [...] season) 2024 09/13/2021, 12/14/2020, 11/16/2020 Influenza Vaccine (Season Ended) 2025 08/29/2021, 06/02/2017, 07/28/2016, Additional history exists DTaP,Tdap,and Td [...] age to complete this topic Meningococcal B Vaccine Aged Out No l onger eligible based on patient's age to complete [...] Recently Relevant to Health Maintenance Care Teams Holiday Detector Operator Relationship Specialty Start Date End Date Dominic Rudolph MD [address] [place] [address] Dr Goerge [place] PCP - General Internal Medicine 01/12/20
[2025-01-02 08:07] LABS: Free T4 (Free Thyroxine) 1.14 ng/dL (0.71-1.85); Thyroid Stimulating Hormone 9.71 uIU/mL (0.32-4.0)
== END 2025-01-02 06:12 | disposition home or self-care (01) ==
LOC: HO.LAB 06:11
PROVIDERS: PCP Internal Medicine; Visit Provider Student in an Organized Health Care Education/Training Program
DX: E89.0 Postprocedural hypothyroidism (principal); C73 Malignant neoplasm of thyroid gland
CPT/HCPCS: 36415; 84439; 84443

== ENCOUNTER 2025-01-05 15:42 | Outpatient (AMB) | payer OTHER, SELFPAY ==
--- NOTE | 2025-01-05 15:43 | A.OFFVIS_ITS ---
Vital Signs 3 01/05/25 15:44 Height 5 ft 1 in Weight 209 lb 7.026 oz BMI 39.6 BP 116/74 Blood Pressure Location Rt brachial Position Sitting Pulse 86 Pulse Source Pulse Oximeter Pulse Oximetry (%) 96 Oxygen Delivery Method Room Air Intake Visit Reasons: f/u thyroid cancer Intake Note: Patient present today for thyroid cancer office visit. L Script Supervisor Required: No Accompanied by: Self / Same As Patient Allergies drospirenone [From SHAQ 28] Allergy (Unknown, Verified 11/08/24 15:35) SWELLING ethinyl estradiol [From SHAQ 28] Allergy (Unknown, Verified 11/08/24 15:35) SWELLING naproxen [From NAPROSYN] Allergy (Unknown, Verified 11/08/24 15:35) SWELLING sulfamethoxazole [From BACTRIM] Allergy (Unknown, Verified 11/08/24 15:35) RASH trimethoprim [From BACTRIM] Allergy (Unknown, Verified 11/08/24 15:35) RASH adhesive tape Allergy (Unknown, Uncoded 11/08/24 15:35) Unknown Medication List - Last Reconciled 01/05/25 by Malika Ambriz MD bisacodyl (Dulcolax (bisacodyl)) 10 mg [place] DAILY PRN cholecalciferol (vitamin D3) 125 mcg PO DAILY 90 days docusate sodium (Colace) 100 mg PO BID sennosides (senna) 17.2 mg (2 x 8.6 mg) PO BEDTIME PRN 90 days Synthroid (levothyroxine) 200 mcg PO DAILY NS Synthroid (levothyroxine) 25 mcg PO DAILY NS HPI Comments Details: 44-year-old female coming in today for follow up of papillary thyroid cancer, status post total thyroidectomy in 2013 at [facility], pathology showing 1.6 cm PTC left-sided, with 5% cells of tall cell variant. There was additional multifocal microscopic foci of PTC within the right lobe. No extrathyroidal extension, no lymphatic invasion, no angioinvasion, AJCC stage I pT1 N0, TRENT intermediate risk of recurrence given portion of tall cell variant. Currently with TRENT excellent response to therapy. History of PTC in detail October 2013: Diagnosed with PTC, status post total thyroidectomy at [facility] in [place] with pathology showing 1.6 X 1.2 X 1.3 cm left-sided PTC with 5% cells of tall cell variant. There were additional multifocal microscopic foci of PTC within the right lobe but no parathyroid all extension was identified. AJCC stage I pT1 N0. TRENT intermediate risk of recurrence. 02/27/2014: Status post 35 mCi of radioactive iodine ablation with I 131 at [facility] in [place] 02/22/2014: Whole-body scan reported LEI uptake in the thyroid bed consistent with metastatic disease, no distant metastatic deposits identified. She was following with her superintendent laundry Dr. Roque at that time, and then later establish with [facility] endocrinology in 2018. 10/05/2017: Ultrasound of the neck revealed multiple enlarged cervical lymph nodes, apparently per chart review FNA biopsy of 1 of these was negative for malignancy. 03/25/2019: Thyrogen stimulated whole-body scan difficult persistent uptake within the thyroid bed and also faint uptake within the right neck concerning for lymph node metastasis. TSH 144.62, TG 0.2, TG antibody level of 5. 02/21/2019: Ultrasound of the neck revealed multiple bilateral enlarged lymph nodes including a left level 3 complex appearing 1.9 cm lymph node. FNA biopsy often enlarged right level 2, right level 4, right level 5 and left level 3 lymph nodes, all negative for cancer. TG washout was negative in all but the right level 2 lymph node were no TG washout was sent. Then apparently there was some issues with the adherence to medication. 11/21/2020: Thyrogen stimulated labs TSH of 91.16 with TG of 0.3, TG antibody of 6. Also around this time in 2020, she had fertility treatments, and can see if successfully. Further whole-body scans are I 131 treatment was deferred until her childbearing was complete. 10/30/2020: Ultrasound of the neck showed persistent lymphadenopathy. 05/21/2021: Ultrasound of the neck showed 3 of normal-appearing cervical lymph nodes a right level 1B, 1.1 cm, a right level 1B, 0.8 cm and a right level 1A, 0.3 cm lymph node. 06/05/2021: FNA biopsy of the right level 1B 1.1 cm cervical lymph node with no evidence of metastatic carcinoma identified. 05/08/2023: Whole-body scan only showed physiologic uptake. TSH was greater than 100, stimulated TG levels with the EMS was undetectable, TG antibody level was 2 05/22/2023: TSH 5.23, free T4 1.17, thyroglobulin by LC MS less than 0.4, TG antibody 3 06/19/2023: US neck Normal-appearing bilateral cervical lymph nodes 07/23/2024: TSH 7.71 Free T4 1.06 Interval history 11/08/2024: TSH 12.82, free T4 1.19, TG by LC MS less than 0.4, TG antibody 3 Synthroid increased to 225 mcg daily from 200 mcg daily 12/01/2024: Ultrasound of the neck done, I reviewed the images myself which shows bilateral normal-appearing lymph nodes 12/25/2024: TSH 9.71, free T4 1.14 No dysphagia, or voice chnages On brand name synthroid due to fluctuations in TSH on generic in the past Reports strict adherence to the medication Takes it at 545 AM in the monring, coffee 6 30, breakfast 8 AM Bowel movements regular , tired all the time, weight stable Laboratory Tests 10/09/20 11/22/20 12/18/20 11:50 12:40 12:35 Free T4 1.46 1.05 TSH Thyroglobulin LC-MS/MS Thyroglobulin Antibody 6 H 02/09/21 05/15/21 07/31/21 07:30 11:50 06:29 Free T4 1.46 1.41 1.23 TSH Thyroglobulin LC-MS/MS Thyroglobulin Antibody 4 H 3 H 09/05/21 10/28/21 04/10/22 06:24 06:48 11:33 Free T4 1.14 1.04 1.62 TSH Thyroglobulin LC-MS/MS Thyroglobulin Antibody 10/10/22 12/03/22 01/01/23 06:47 11:46 12:27 Free T4 0.66 L 1.13 1.22 TSH 31.48 H 15.82 H 3.03 Thyroglobulin LC-MS/MS Thyroglobulin Antibody 03/21/23 04/30/23 05/05/23 08:37 16:05 11:05 Free T4 0.79 < 0.42 L < 0.42 L TSH 17.67 H > 100.00 H > 100.00 H Thyroglobulin LC-MS/MS <0.4 <0.4 <0.4 Thyroglobulin Antibody 2 H 2 H 2 H 05/15/23 05/22/23 10/19/23 Unknown 12:15 06:24 Free T4 0.85 1.17 TSH 57.59 H 5.23 H 3.27 Thyroglobulin LC-MS/MS <0.4 <0.4 Thyroglobulin Antibody 2 H 3 H 11/28/23 01/20/24 04/08/24 07:13 06:28 06:16 Free T4 1.01 1.61 1.04 TSH 3.53 0.03 L 2.35 Thyroglobulin LC-MS/MS Thyroglobulin Antibody 07/23/24 09:22 Free T4 1.06 TSH 7.71 H Thyroglobulin LC-MS/MS Thyroglobulin Antibody Laboratory Tests 11/08/24 01/02/25 16:17 06:26 TSH 12.82 H 9.71 H Free T4 1.19 1.14 Thyroglobulin LC-MS/MS <0.4 Thyroglobulin Antibody 3 H Exam: Ultrasound of the neck. 12/01/24 Comparison: None. Findings: Patient underwent total thyroidectomy 11 years prior. Ultrasound evaluation of the cervical lymph nodes was performed. Multiple bilateral jugular lymph nodes are identified. The technologist notes that many of these lymph nodes are new since prior study. Patient reportedly had a prior examination performed June 19, 2023. Please note that I do not have access to those images or report at this time. A total of 7 right jugular lymph nodes are identified. These measure up to 19 x 5 x 8 mm in size. There is a submental lymph node to the right of midline without a fatty hilum measuring 7 x 4 x 4 mm in size. Level 1B lymph nodes measure up to 10 x 3 x 6 mm in size without a definitive fatty hilum. A total of 4 left jugular lymph nodes are identified. These each have a fatty hilum. Impression: Indeterminate lymph nodes along the right jugular lymph node chain as above. Although I do not have the patient's prior imaging studies for review, this technologist labels these as ???new??? lymph nodes. Clinical correlation and direct correlation with the patient's prior imaging studies suggested. This document has been electronically signed by: Gómez Dempsey MD on 12/01/2024 06:09:04 US SOFT TISSUE OF THE NECK 06/19/23 CLINICAL INFORMATION: Malignant neoplasm of thyroid gland. COMPARISON: Soft tissue neck ultrasound 05/21/2021. TECHNIQUE: Linear transducer grayscale and color Doppler examination of the thyroid bed and surrounding soft tissue. FINDINGS: Thyroidectomy. Bilateral thyroidectomy beds appear normal. Imaged cervical lymph nodes: Right upper: 1.7 x 0.6 x 1.0 cm with preserved fatty hilum. Right lower: 1.8 x 0.6 x 0.5 cm with preserved fatty hilum. Left mid: 1.4 x 0.7 x 0.7 cm with preserved fatty hilum. US/US thyroid IMPRESSION: Normal-appearing bilateral cervical lymph nodes. It is difficult to compare individual nodes between studies but there has likely been no significant change compared to soft tissue neck ultrasound 05/21/2021. US SOFT TISSUE NECK 05/21/21 CLINICAL INFORMATION: Thyroid cancer. COMPARISON: 10/30/2020 TECHNIQUE: Ultrasound of the neck soft tissues is performed with high- frequency duffy-scale imaging and color Doppler. FINDINGS: THYROID BED: Prior thyroidectomy. No residual thyroid tissue demonstrated in the thyroid bed. No cystic or solid nodules demonstrated in the thyroid bed. There are numerous normal-appearing lymph nodes seen bilaterally RIGHT NECK SOFT TISSUES: Scattered lymph nodes are present. Some appear normal with normal fatty clefts and smooth margins without cortical thickening or lobulation. A few are abnormal and will be listed. The largest nodes are as follows: Level 3: 2.2 x 0.6 x 0.6 cm. Normal nicole architecture Level 3: 1.9 x 0.7 x 1.4 cm. Normal nicole architecture. Cortical thickness of 2.5 mm. There is an abnormal right level 1B lymph node that was not previously seen measuring 5 x 5 x 5 mm in size. It is rounded in appearance without fatty hilum identified. There is an abnormal lymph node seen within level 1B measuring 1.1 x 0.5 x 0.9 cm in size with a nodular cortex. There is normal fatty cleft present and no cortical thickening. There is an abnormal lymph node seen at level 1B which is essentially stable in size to previous study measuring 8 x 6 x 8 mm in size with some cortical nodularity but without significant change from prior study. Fatty hilum present. There is an abnormal-appearing lymph node level IA measuring 3 x 2 x 3 mm in size which is smaller than on prior study where it measured 5 x 4 x 5 mm in size. LEFT NECK SOFT TISSUES: Scattered architecturally normal nodes are present. The nodes show normal fatty hilus, normal cortical thickness, and no cystic change or calcification. No abnormal color flow. The largest nodes are as follows: Level 3: 1.1 x 0.3 x 0.8 cm. Normal nicole architecture. This was not noted on previous study. Level 3: 1.3 x 0.5 x 0.6 cm. Normal nicole architecture. This has enlarged and previously was 1.3 x 0.5 x 0.6 cm in size. Level 1B: 1.5 x 0.5 x 1.2 cm in size compared to previous study where it measured 1.2 x 0.6 x 0.9 cm in size. Normal nicole architecture. There are 3 other lymph nodes that were not seen on prior study: One within level 2 measuring 5 x 2 x 5 mm in size. This has normal architecture. Another is in level 3 measuring 1.1 x 0.3 x 0.8 cm in size. This has normal architecture. The third is in segment 5A measuring 6 x 4 x 5 mm in size with normal architecture. US/US soft tiss head and/or neck IMPRESSION: Numerous bilateral neck lymph nodes with normal architecture on the left with a few lymph nodes not noted previously as described. Some abnormal-appearing right neck lymph nodes as described above. In previous report it is stated that biopsies were performed of bilateral lymph nodes however none are listed as being within level 1 within the right neck where most of the abnormal-appearing lymph nodes are seen. US SOFT TISSUE NECK 10/30/20 CLINICAL INFORMATION: C73 - Malignant neoplasm of thyroid gland COMPARISON: CT neck with contrast, report 04/22/2019, ultrasound-guided lymph node fine-needle aspiration report 04/20/2019. TECHNIQUE: Ultrasound of the neck soft tissues is performed with high frequency duffy-scale imaging and color Doppler. FINDINGS: RIGHT NECK SOFT TISSUES: Scattered architecturally normal nodes are present. The nodes show normal fatty hilus, normal cortical thickness, and no cystic change or calcification. No abnormal color flow. The largest nodes are as follows: Level 2: 2.1 x 0.7 x 1.3 cm. Normal nicole architecture. Level 2: 1.4 x 0.5 x 1.2 cm. Normal nicole architecture. Level 3: 1.9 x 0.7 x 1.4 cm. Normal nicole architecture. LEFT NECK SOFT TISSUES: Scattered architecturally normal nodes are present. The nodes show normal fatty hilus, normal cortical thickness, and no cystic change or calcification. No abnormal color flow. Level 1B: 1.2 x 0.6 x 0.9 cm. Normal nicole architecture. Level 1B: 1.2 x 0.5 x 0.9 cm. Normal nicole architecture. US/US soft tiss head and/or neck IMPRESSION: 1. Bilateral architecturally normal nodes. No lymphadenopathy. 2. If further evaluation is clinically indicated, CT neck with contrast would be recommended. PFSH Medical History Vitamin D deficiency Hypothyroidism Thyroid cancer Surgical History S/P repair of paraesophageal hernia S/P gastric sleeve procedure Hx of section Hx of dilation and curettage Hx of thyroidectomy Family History Father Asthma Hypertension Mother Hypertension Other S/P repair of paraesophageal hernia Social History Household Members: Family Housing: House Are you a primary health care sanitary technician to a significant other at home: No Do you presently have visiting nurse or other home services: No Alcohol intake: current Alcohol intake frequency: does not drink Patient Tobacco Use Status: Never used Tobacco service: No Physical Exam Vital Signs: Last Vital Signs Pulse 86 01/05/25 15:44 BP 116/74 01/05/25 15:44 Pulse Ox 96 01/05/25 15:44 Oxygen Delivery Method Room Air 01/05/25 15:44 BMI result Body Mass Index 39.6 Assessment & Plan Assessment & Plan (1) Thyroid cancer: Code(s): C73 - Malignant neoplasm of thyroid gland Category: Medical Plan: 44-year-old female coming in today for follow up of papillary thyroid cancer, status post total thyroidectomy in 2013 at [facility] in [place], pathology showing 1.6 cm PTC left-sided, with 5% cells of tall cell variant. There was additional multifocal microscopic foci of PTC within the right lobe. No extrathyroidal extension, no lymphatic invasion, no angioinvasion, AJCC stage I pT1 N0, TRENT intermediate risk of recurrence given portion of tall cell variant. Over the years she has had multiple ultrasounds of the neck that showed some of normal cervical lymph nodes, FNA biopsy of these lymph nodes in 2018 and then again in 2019 was negative for cancer with TG washout being negative. Last ultrasound done in November 2024 did not show any abnormal lymph nodes. Her last whole-body scan from May 2023 also only showed physiologic uptake. Stimulated TG levels were undetectable with LC MS. She has had positive TG antibodies which makes us a little bit concerned about reliability of the thyroglobulin markers, however these have also declined over the years from being anywhere around 6 in 7 to most recently in 2022 when levels were at 3. Based on all this data, with most recently from 2022 both stimulated and unstimulated TG levels with the LCM as being undetectable, I would classify her as Currently with TRENT excellent response to therapy. TSH goal 0.5-2. Most recent labs from November 2024 : TSH 12.82, free T4 1.19, TG by LC MS less than 0.4, TG antibody 3 Synthroid increased to 225 mcg daily from 200 mcg daily 12/25/2024: TSH 9.71, free T4 1.14 She is promising strict adherence to the medication. Her weight based dose of levothyroxine is 150 mcg so I am unsure why she is requiring such a high dose. She has a history of sleeve gastrectomy, that could be affecting some of her absorption possibly. Otherwise she is not on any interfering medications. Plan: -increase Synthroid to 250 mcg daily by taking an additional 50 mcg pill to the 200 mcg pill -ordered TSH, free T4, to be done in 6 weeks -we will reach out with the results of the labs on the portal -thyroid cancer follow up would be due in 6 months with tumor markers so sometime in June or July 2025. She would also like to establish care with me for obesity, could not addressed during the visit today, we will bring her back for another visit in 6 weeks for obesity management. (2) Hypothyroidism: Code(s): E03.9 - Hypothyroidism, unspecified Category: Medical Qualifiers: Hypothyroidism type: postoperative Qualified Code(s): E89.0 - Postprocedural hypothyroidism Plan: TSH goal 0.5-2. Most recent labs from November 2024 : TSH 12.82, free T4 1.19, TG by LC MS less than 0.4, TG antibody 3 Synthroid increased to 225 mcg daily from 200 mcg daily 12/25/2024: TSH 9.71, free T4 1.14 She is promising strict adherence to the medication. Her weight based dose of levothyroxine is 150 mcg so I am unsure why she is requiring such a high dose. She has a history of sleeve gastrectomy, that could be affecting some of her absorption possibly. Otherwise she is not on any interfering medications. Plan: -increase Synthroid to 250 mcg daily by taking an additional 50 mcg pill to the 200 mcg pill -ordered TSH, free T4, to be done in 6 weeks -we will reach out with the results of the labs on the portal Plan See above Orders: Orders 2 Free T4 (Free Thyroxine) 6 Weeks C73 - Malignant neoplasm of thyroid gland, E89.0 - Postprocedural hypothyroidism Thyroid Stimulating Hormone 6 Weeks C73 - Malignant neoplasm of thyroid gland, E89.0 - Postprocedural hypothyroidism Medications: New 2 levothyroxine (Synthroid) Take 1 tablet daily along with you 200 mcg tablet daily BRAND NAME ONLY No substitution allowed BLAISE 50 mcg PO DAILY 90 tabs 2RF Discontinued 2 Synthroid (levothyroxine) Take 1 tablet daily along with you 200 mcg tablet daily BRAND NAME ONLY No substitution allowed BLAISE Discontinued Reason: Doctor's Order 25 mcg PO DAILY 30 tabs 5RF NS Coding Level of Care Code Est Pt Level 4 (65589) Complex EM visit Add On G2211 Diagnoses Thyroid cancer C73 Postoperative hypothyroidism E89.0 Hypothyroidism type: postoperative
[2025-01-05 15:44] VITALS: BP 116/74; PULSE 86; O2SAT 96; BMI 39.6
--- OUTSIDE RECORDS SUMMARY | 2025-01-05 17:20 | XMS_ITS | Encounter Summary ---
Author Organization [facility] Address [address] [place] [address] Care Team Providers Care Clam Dredger Name Role Phone Name, [place] HUYNH Primary Care Provider Dominic Garcia MD Primary Care Provider Fidencio ilaleksander Encounter Details Date Type Department Care Team Description 01/06/2020 Pt. Non Urgent Medic al Question OBGYN - [place] [address] [place] [address] Loretta Ascencio CNM [address] [place] [address] Social History Tobacco Use Types Packs/Day Years Used Date Smoking Tobacco: Never Smokeless Tobacco: Never Alcohol Use Standard Drinks/Week Comments Yes 0 (1 standard drink = 0.6 oz pur e alcohol) socially Sex Assigned at Date Recorded Not on file documented as of this encounter Miscellaneous Notes * Telephone Encounter - Krystyna Mckay R.N. - 01/06/2020 2:04 PM EDTFrom: [place] Man To: Loretta Ascencio CNM Sent: 01/06/2020 12:28 PM EDT Subject: Concern How long after a miscarriage do a women has spotting. I've been spotting since December 22 plus cramping every other day. documented in this encounter Plan of Treatment Not on file documented as of this encounter Visit Diagnoses Not on filedocumented in this encounter Care Teams Clam Dredger Relationship Specialty Start Date End Date Name, MD [place] PCP - General Internal Medicine 02/03/18 01/11/20 Dominic Rudolph MD PCP - General Internal Medicine 01/12/20 documented as of this encounter
--- OUTSIDE RECORDS SUMMARY | 2025-01-05 17:20 | XMS_ITS | Encounter Summary ---
Author Organization [facility] Address [address] [place] [address] Care Team Providers Care Traffic Representative Name Role Phone Dominic Rudolph MD Primary Care Provider Fidencio bolden Encounter Details Date Type Department Care Team Description 11/29/2020 Orders Only General Surgery - [place] [address] [facility] [address] [place] [address] Heike Heller MD [address] [facility] [address] [place] [address] S/P bariatric surgery; Abnormal weight gain Social History Tobacco Use Types Packs/Day Years [...] or suspected to have Coronavirus / COVID-19? Unable to assess 11/19/2020 7:37 AM EDT documented as of this encounter Plan of Treatment Not on file documented as of this encounter Procedures Procedure Name Priority Date/Time Associated Diagnosis Comments CHG RADIOLOGIC EXAM UPR GI TRC DOUBLE CONTRAST STUDY Routine 10/24/2020 S/P bariatric surgery Abnormal weight gain documented in this encounter Results * CHG RADIOLOGIC EXAM UPR GI TRC DOUBLE CONTRAST STUDY (10/24/2020) Heike Heller MD OUTSIDE RADIOLOGY documented in this encounter Visit Diagnoses Diagnosis S/P bariatric surgery Bariatric surgery status Abnormal weight gain documented in this encounter Care Teams Traffic Representative Relationship Specialty Start Date End Date Dominic Rudolph MD PCP - General Internal Medicine 01/12/20 documented as of this encounter
--- OUTSIDE RECORDS SUMMARY | 2025-01-05 17:20 | XMS_ITS | Encounter Summary ---
Author Organization [facility] Address [address] [place] [address] Care Team Providers Care Back Feeder Plywood Layup Line Name Role Phone Name, [place] HUYNH Primary Care Provider Dominic Garcia MD Primary Care Provider Unava ilable Encounter Details Date Type Department Care Team Description 03/01/2018 Release of Information Medical Records [address] [place] [id number] Abstract, Provider Social History Tobacco Use Types [...] on filedocumented in this encounter Care Teams Back Feeder Plywood Layup Line Relationship Specialty Start Date End Date Name, MD [place] PCP - General Internal Medicine 02/03/18 01/11/20 Dominic Rudolph MD PCP - General Internal Medicine 01/12/20 documented as of this encounter
--- OUTSIDE RECORDS SUMMARY | 2025-01-05 17:20 | XMS_ITS | Encounter Summary ---
Author Organization [facility] Address [address] [place] [address] Care Team Providers Care Layout Designer Name Role Phone Name, [place] HUYNH Primary [...] Care Team Description 01/26/2014 Telephone General Surgery [address] [place] [address] Chato Calixto MD [address] [place] [address] Provider Call Back Social History Tobacco Use [...] on filedocumented in this encounter Care Teams Layout Designer Relationship Specialty Start Date End Date Name, [...]
--- OUTSIDE RECORDS SUMMARY | 2025-01-05 17:20 | XMS_ITS | Encounter Summary ---
Author Organization [facility] Address [address] [place] [address] Care Team Providers Care Hot End Operator Name Role Phone Name, [place] HUYNH [...] Reason Onset Date Comments Provider Call Back 10/21/2013 Encounter Details Date Type Department Care Team Description 10/21/2013 [place] [facility] [address] [address] Name, MD [place] Provider Call Back Social History Tobacco Use Types Packs/Day Years Used Date Smoking Tobacco: Never Smokeless Tobacco: Never Alcohol Use Standard Drinks/Week Comments Yes 0 (1 standard drink = 0.6 oz pur e alcohol) socially Sex Assigned at Date Recorded Not on file documented as of this encounter Miscellaneous Notes * Telephone Encounter - Deidre Brown - 10/21/2013 10:17 AM EST Patient returning a call she received from Darshana Garcia documented in this encounter Plan of Treatment Not on file documented as of this encounter Visit Diagnoses Not on filedocumented in this encounter Care Teams Hot End Operator Relationship Specialty Start Date End Date [...]
--- OUTSIDE RECORDS SUMMARY | 2025-01-05 17:20 | XMS_ITS | Encounter Summary ---
Author Organization [facility] Address [address] [place] [address] Care Team Providers Care Teller Head Name Role Phone Luther Bowen MD Primary Care Provider Unavail able NameBoston MD Primary Care Provider Unavailabl e Name, [place] HUYNH Primary Care Provider Unavailabl e Dominic Rudolph MD Primary Care Provider Unava ilable Encounter Details Date Type Department Care Team Description 02/18/2016 [facility] Medical Records [address] [place] [address] Rosmery Jay MD Social History Tobacco Use [...] on filedocumented in this encounter Care Teams Teller Head Relationship Specialty Start Date End Date Luther Bowen MD PCP - General Internal Medicine 12/18/15 03/06/16 [place] Ohara MD PCP - General Internal Medicine 03/07/16 02/02/18 [place] Ohara MD PCP - General Internal Medicine 02/03/18 01/11/20 Dominic Rudolph MD PCP - General Internal Medicine 01/12/20 documented as of this encounter
--- OUTSIDE RECORDS SUMMARY | 2025-01-05 17:20 | XMS_ITS | Encounter Summary ---
Author Organization [facility] Address [address] [place] [address] Care Team Providers Care Product Picker Name Role Phone NameBoston MD Primary Care Provider Boston Rush MD Primary Care Provider Unavailrose mary e Dominic Rudolph MD Primary Care Provider Unava ilable Encounter Details Date Type Department Care Team Description 07/12/2016 Release of Information Medical Records [address] [place] [address] Abstract, Provider Social History Tobacco Use Types [...] on filedocumented in this encounter Care Teams Product Picker Relationship Specialty Start Date End Date Boston Ohara MD PCP - General Internal Medicine 03/07/16 02/02/18 [place] Ohara MD PCP - General Internal Medicine 02/03/18 01/11/20 Dominic Rudolph MD PCP - General Internal Medicine 01/12/20 documented as of this encounter
--- OUTSIDE RECORDS SUMMARY | 2025-01-05 17:20 | XMS_ITS | Clinical Summary ---
Author Organization [facility] [facility] Address [address] [place] [address] [address] [place] [address] Care Team Providers Care Operating Room Surgical Technician Name Role Phone Unavailable Primary Care Provider [...]
--- OUTSIDE RECORDS SUMMARY | 2025-01-05 17:20 | XMS_ITS | Encounter Summary ---
Author Organization [facility] Address [address] [place] [address] Care Team Providers Care Translator Interpreter Name Role Phone Name, [place] HUYNH Primary Care Provider Douglas bullock NameBoston MD Primary Care Provider Douglas e Dominic Rudolph MD Primary Care Provider Unava ilable Encounter Details Date Type Department Care Team Description 11/03/2017 Pt. Non Urgent Medic al Question Adult Medicine [address] [address] Luther Bowen MD Social History Tobacco Use [...] on filedocumented in this encounter Care Teams Translator Interpreter Relationship Specialty Start Date End Date Lev, MD [place] PCP - General Internal Medicine 03/07/16 02/02/18 [place] Ohara MD PCP - General Internal Medicine 02/03/18 01/11/20 Dominic Rudolph MD PCP - General Internal Medicine 01/12/20 documented as of this encounter
--- OUTSIDE RECORDS SUMMARY | 2025-01-05 17:20 | XMS_ITS | Encounter Summary ---
Author Organization [facility] Address [address] [place] [address] Care Team Providers Care Getter Welder Name Role Phone Name, [place] HUYNH Primary [...] Care Team Description 02/27/2014 Hospital Medical Records [address] [place] [address] Gómez Celis Social History Tobacco Use Types [...] on filedocumented in this encounter Care Teams Getter Welder Relationship Specialty Start Date End Date Name, [...]
--- OUTSIDE RECORDS SUMMARY | 2025-01-05 17:20 | XMS_ITS | Encounter Summary ---
Author Organization [facility] Address [address] [place] [address] Care Team Providers Care Driver Education Road Instructor Name Role Phone Dominic Rudolph MD Primary Care Provider Fidencio bolden Encounter Details Date Type Department Care Team Description 07/23/2020 [facility] Medical Records [address] [place] [address] Abstract, Provider Social History Tobacco Use Types [...] on filedocumented in this encounter Care Teams Driver Education Road Instructor Relationship Specialty Start Date End Date Dominic Rudolph MD PCP - General Internal Medicine 01/12/20 documented as of this encounter
--- OUTSIDE RECORDS SUMMARY | 2025-01-05 17:20 | XMS_ITS | Encounter Summary ---
Author Organization [facility] Address [facility] [place] [address] Care Team Providers Care Cardiology Nurse Name Role Phone Name, [place] HUYNH Primary [...] Description 05/01/2015 Release of Information Medical Records [address] [place] [address] Abstract, Provider Social History Tobacco Use Types [...] on filedocumented in this encounter Care Teams Cardiology Nurse Relationship Specialty Start Date End Date Boston [...]
--- OUTSIDE RECORDS SUMMARY | 2025-01-05 17:20 | XMS_ITS | Encounter Summary ---
Author Organization [facility] Address [address] [place] [address] Care Team Providers Care Deck Supervisor Name Role Phone Name, [place] HUYNH Primary Care Provider Dominic Garcia MD Primary Care Provider Fidencio ilaleksander Encounter Details Date Type Department Care Team Description 12/15/2019 Pt. Non Urgent Medic al Question OBGYN - [place] [address] [place] [address] Loretta Ascencio CNM [address] [place] [address] Social History Tobacco Use Types Packs/Day Years Used Date Smoking Tobacco: Never Smokeless Tobacco: Never Alcohol Use Standard Drinks/Week Comments Yes 0 (1 standard drink = 0.6 oz pur e alcohol) socially Sex Assigned at Date Recorded Not on file documented as of this encounter Miscellaneous Notes * Telephone Encounter - Renee Andrews R.N. - 12/15/2019 1:16 PM EDTFrom: [place] Man To: Loretta Ascencio CNM Sent: 12/15/2019 1:13 PM EDT Subject: Concern I've being pink spotting when I wipe only and no pain since i have intercourse. Should I see the Ángel worry documented in this encounter Plan of Treatment Not on file documented as of this encounter Visit Diagnoses Not on filedocumented in this encounter Care Teams Deck Supervisor Relationship Specialty Start Date End Date Name, MD [place] PCP - General Internal Medicine 02/03/18 01/11/20 Dominic Rudolph MD PCP - General Internal Medicine 01/12/20 documented as of this encounter
--- OUTSIDE RECORDS SUMMARY | 2025-01-05 17:20 | XMS_ITS | Encounter Summary ---
Author Organization [facility] Address [address] [place] [address] Care Team Providers Care Deputy Chief Counsel Name Role Phone Name, [place] HUYNH Primary [...] Details Date Type Department Care Team Description 01/25/2014 Hospital Medical Records [address] [place] [address] Luther Bowen MD Social History Tobacco Use [...] on filedocumented in this encounter Care Teams Deputy Chief Counsel Relationship Specialty Start Date End Date Lev, [...]
--- OUTSIDE RECORDS SUMMARY | 2025-01-05 17:20 | XMS_ITS | Encounter Summary ---
Author Organization [facility] Address [facility] [place] [address] Care Team Providers Care Manager Fashion Name Role Phone Name, [place] HUYNH Primary [...] Details Date Type Department Care Team Description 04/29/2013 Release of Information Medical Records [address] [place] [address] Abstract, Provider Social History Tobacco Use Types [...] on filedocumented in this encounter Care Teams Manager Fashion Relationship Specialty Start Date End Date [place] [...] - General Internal Medicine 02/03/18 01/11/20 Dominic Ruodlph MD PCP - General Internal Medicine 01/12/20 documented as of this encounter
--- OUTSIDE RECORDS SUMMARY | 2025-01-05 17:20 | XMS_ITS | Encounter Summary ---
Author Organization [facility] Address [address] [place] [address] Care Team Providers Care Survey Worker Name Role Phone Name, [place] HUYNH [...] Date Type Department Care Team Description 01/04/2013 Journeyman Machinist Report Medical Records [address] [place] [address] Loly Aceves III, MD Social History Tobacco [...] on filedocumented in this encounter Care Teams Survey Worker Relationship Specialty Start Date End Date [...]
--- OUTSIDE RECORDS SUMMARY | 2025-01-05 17:20 | XMS_ITS | Encounter Summary ---
Author Organization [facility] Address [address] [place] [address] Care Team Providers Care Turkey Picker Name Role Phone Name, [place] HUYNH Primary [...] Details Date Type Department Care Team Description 10/30/2014 Pt. Non Urgent Medic al Question Adult Medicine [address] [address] [place] Ohara MD Social History Tobacco Use Types Packs/Day Years Used Date Smoking Tobacco: Never Smokeless Tobacco: Never Alcohol Use Standard Drinks/Week Comments Yes 0 (1 standard drink = 0.6 oz pur e alcohol) socially Sex Assigned at Date Recorded Not on file documented as of this encounter Progress Notes * Courtney Roberts M.A. - 10/31/2014 8:07 AM ESTFrom: [place] Man To: [place] Ohara MD Sent: 10/30/2014 8:29 PM EST Subject: Question regarding MRI OF BRAIN There is some parts of the test that I really dont understand. Can I have an appointment so I can seat with you and discuss the test. Also there is few questions I have regarding my thyroid levels coming extremely high when my thyroid was supposedly removed completely. I have asked Dr Bowen aboutit and he keeps saying everything is ok documented in this encounter Plan of Treatment Not on file documented as of this encounter Visit Diagnoses Not on filedocumented in this encounter Care Teams Turkey Picker Relationship Specialty Start Date End Date Name, [...]
--- OUTSIDE RECORDS SUMMARY | 2025-01-05 17:20 | XMS_ITS | Encounter Summary ---
Author Organization [facility] Address [address] [place] [address] Care Team Providers Care Motorcycle Builder Name Role Phone Luther Bowen MD Primary Care Provider Unavail able Name, [place] HUYNH Primary Care Provider Unavailabl e Name, [place] HUYNH Primary Care Provider Unavailabl e Dominic Rudolph MD Primary Care Provider Unava ilable Encounter Details Date Type Department Care Team Description 02/06/2016 Pt. Non Urgent Medic al Question OBGYN - [place] [address] [place] [address] Jose Pitts MD Social History Tobacco Use Types Packs/Day Years Used Date Smoking Tobacco: Never Smokeless Tobacco: Never Alcohol Use Standard Drinks/Week Comments Yes 0 (1 standard drink = 0.6 oz pur e alcohol) socially Sex Assigned at Date Recorded Not on file documented as of this encounter Progress Notes * Jose Rafael Goetz R.N. - 02/07/2016 8:36 AM EDTFrom: [place] Donovan To: Jose Pitts MD Sent: 02/06/2016 7:57 PM EDT Subject: Forgot to mention I'm just writing because I forgot to mentioned yesterday that lately every time I sneeze my urine comes out. There is time that its alot that I even have to change my underwear and even my pants. Im just a little concerned about this documented in this encounter Plan of Treatment Not on file documented as of this encounter Visit Diagnoses Not on filedocumented in this encounter Care Teams Motorcycle Builder Relationship Specialty Start Date End Date Luther Bowen MD PCP - General Internal Medicine 12/18/15 03/06/16 Name, MD [place] PCP - General Internal Medicine 03/07/16 02/02/18 Name, MD [place] PCP - General Internal Medicine 02/03/18 01/11/20 Dominic Rudolph MD PCP - General Internal Medicine 01/12/20 documented as of this encounter
--- OUTSIDE RECORDS SUMMARY | 2025-01-05 17:20 | XMS_ITS | Clinical Summary ---
Author Organization [facility] Address [address] [place] [address] Care Team Providers Care Scaffold Erector Name Role Phone Dominic Rudolph MD Primary Care Provider [phone] Surgical History Surgery Date Site/Laterality Comments LAPAROSCOPIC [...] obesity wit h BMI of 40.0-44.9, adult ([facility]) S/P D&C (status post dilatio n and [...] Recently Relevant to Health Maintenance Care Teams Scaffold Erector Relationship Specialty Start Date End Date Dominic Rudolph MD [address] [place] [address] Dr George [place] PCP - General Internal Medicine 01/12/20
--- OUTSIDE RECORDS SUMMARY | 2025-01-05 17:20 | XMS_ITS | Encounter Summary ---
Author Organization [facility] Address [address] [place] [address] Care Team Providers Care Metal Casket Assembler Name Role Phone Name, [place] HUYNH Primary [...] Details Date Type Department Care Team Description 08/26/2014 [facility] Medical Records [address] [place] [address] Abstract, Provider Social History Tobacco Use Types [...] Name Priority Date/Time Associated Diagnosis Comments OUTSIDE LAB Routine 02/21/2014 documented in this encounter Results * OUTSIDE LAB (02/21/2014) Provider Abstract LAB documented in this encounter Visit Diagnoses Not on filedocumented in this encounter Care Teams Metal Casket Assembler Relationship Specialty Start Date End Date [place] Ohara MD PCP - General 07/05/08 11/18/15 [place] Ohara MD PCP - General Internal Medicine 11/19/15 12/06/15 Dominic Rudolph MD PCP - General Internal Medicine 12/07/15 12/17/15 Luther Bowen MD PCP - General Internal Medicine 12/18/15 03/06/16 NameBoston MD PCP - General Internal Medicine 03/07/16 02/02/18 [place] Ohara MD PCP - General Internal Medicine 02/03/18 01/11/20 Dominic Rudolph MD PCP - General Internal Medicine 01/12/20 documented as of this encounter
--- OUTSIDE RECORDS SUMMARY | 2025-01-05 17:20 | XMS_ITS | Encounter Summary ---
Author Organization [facility] Address [facility] [place] [address] Care Team Providers Care Test Borer Name Role Phone Name, [place] HUYNH Primary Care Provider Douglas bullock Name, [place] HUYNH Primary Care Provider Douglas e Dominic Rudolph MD Primary Care Provider Unava ilable Encounter Details Date Type Department Care Team Description 06/10/2017 Pt. Non Urgent Medic al Question OBGYN - [place] [address] Elodia Hale DO Social History Tobacco Use [...] on filedocumented in this encounter Care Teams Test Borer Relationship Specialty Start Date End Date Name, MD [place] PCP - General Internal Medicine 03/07/16 02/02/18 Name, MD [place] PCP - General Internal Medicine 02/03/18 01/11/20 Dominic Rudolph MD PCP - General Internal Medicine 01/12/20 documented as of this encounter
--- OUTSIDE RECORDS SUMMARY | 2025-01-05 17:20 | XMS_ITS | Encounter Summary ---
Author Organization [facility] Address [address] [place] [address] Care Team Providers Care Dining Room Server Name Role Phone Name, [place] HUYNH Primary Care Provider Unavailrose mary e Name, [place] HUYNH Primary Care Provider Unavailabl e Dominic Rudolph MD Primary Care Provider Unava ilable Reason for Referral * Radiology Services (Routine) - Authorized/Booked Specialty Diagnoses / Procedures Referred By Silvio santana Referred To Contact Radiology Diagnoses At high risk for breast cancer Procedures MRI BREAST BILATERAL Merlyn Gutiérrez PA-C [address] [place] [address] [facility] [address] [place] [address] Referral ID Status Reason Start Date Expiration Date V isits Requested Visits Authorized [id number] Authorized/B ooked 03/09/2018 03/09/2019 1 1 Encounter Details Date Type Department Care Team Description 03/20/2017 Orders Only Genetic & Disease Counseling - [place] [address] [place] [address] Merlyn Gutiérrez PA-C At high risk for [...] Primary documented in this encounter Care Teams Dining Room Server Relationship Specialty Start Date End Date Name, MD [place] PCP - General Internal Medicine 03/07/16 02/02/18 Name, MD [place] PCP - General Internal Medicine 02/03/18 01/11/20 Dominic Rudolph MD PCP - General Internal Medicine 01/12/20 documented as of this encounter
--- OUTSIDE RECORDS SUMMARY | 2025-01-05 17:20 | XMS_ITS | Encounter Summary ---
Author Organization [facility] Address [address] [place] [address] Care Team Providers Care Business Excellence Leader Name Role Phone Name, [place] HUYNH Primary [...] Care Team Description 06/30/2013 Hospital Medical Records [address] [place] [address] Loly Aceves III, MD Social History Tobacco [...] on filedocumented in this encounter Care Teams Business Excellence Leader Relationship Specialty Start Date End Date Name, [...]
--- OUTSIDE RECORDS SUMMARY | 2025-01-05 17:20 | XMS_ITS | Encounter Summary ---
Author Organization [facility] Address [address] [place] [address] Care Team Providers Care Wheel Alignment Technician Name Role Phone Name, [place] HUYNH Primary Care Provider Unavailrose mary e Name, [place] HUYNH Primary Care Provider Unavailabl e Dominic Rudolph MD Primary Care Provider Unava ilable Reason for Visit * Reason Onset Date Comments Provider Call Back 09/16/2017 medication problems 09/16/2017 Prior Authorization 09/16/2017 Encounter Details Date Type Department Care Team Description 09/16/2017 Telephone Adult Medicine [address] [address] Luther Bowen MD Provider Call Back; medication [...] brand synthroid [place] p [phone] Prior Auth pool Payal Otoole M.A. Regional [...] What Pharmacy did the fax come from: [facility] fax #: [phone] [facility] [employer] Party Information from fax: What Prescription Plan does the patient have? [facility] BIN/PCN if applicable: not stated on fax Cardholder ID: [id number] Person Code: not stated on fax Relationship Code: not stated on fax Help desk phone: only phone # on fax is [phone] * Telephone Encounter - Aida Sagastume - [...] on filedocumented in this encounter Care Teams Wheel Alignment Technician Relationship Specialty Start Date End Date Name, MD [place] PCP - General Internal Medicine 03/07/16 02/02/18 Name, MD [place] PCP - General Internal Medicine 02/03/18 01/11/20 Dominic Rudolph MD PCP - General Internal Medicine 01/12/20 documented as of this encounter
--- OUTSIDE RECORDS SUMMARY | 2025-01-05 17:20 | XMS_ITS | Encounter Summary ---
Author Organization [facility] Address [address] [place] [address] Care Team Providers Care Transmission Builder Name Role Phone Name, [place] HUYNH Primary Care Provider Dominic Garcia MD Primary Care Provider Unava ilable Encounter Details Date Type Department Care Team Description 05/27/2018 Pt. Non Urgent Medical Question OBGYN - [address] [address] Dee Keane CNM [address] [place] [address] Social History Tobacco Use Types Packs/Day Years [...] on filedocumented in this encounter Care Teams Transmission Builder Relationship Specialty Start Date End Date Name, MD [place] PCP - General Internal Medicine 02/03/18 01/11/20 Dominic Rudolph MD PCP - General Internal Medicine 01/12/20 documented as of this encounter
--- OUTSIDE RECORDS SUMMARY | 2025-01-05 17:20 | XMS_ITS | Clinical Summary ---
Author Organization [facility] Address [address] [place] [address] Care Team Providers Care Assistant Housekeeping Manager Name Role Phone Dominic Rudolph MD Primary [...] at her age, we do not recommend snf attempts at conception, but rather early referral [...] of other normal 06/06/2020 07/05/2020 Overview: 1. [facility] site: [facility] 2. Delivery site: [facility] 3. Dating criteria: LMP only 3. Blood [...] ovarian cancer Other 3 paternal 1st cousin [place] Paternal Grandfather age 70' bladder cancer Paternal [...] 07/19/2021 07/19/2020, 02/06, 02/17/2017, Additional history exists BMI CHECK/ADVISE 09/07/2024 09/03/2020, 10/2019, 06/15/2020, Additional history exists DEPRESSION SCREENING/FOLLOWUP 09/07/2024 02/18/2019 SOCIAL NEEDS SCREENING 09/07/2024 02/18/2019 INFLUENZA (Season Ended) 2025 015, 07/05/2014, 07/27/2013, Additional history exists CHOLESTEROL SCREENING 10/10/2027 10/10/2022 , 08/14/2020, 10/20/2014, Additional history exists DTAP/TDAP/TD (3 - Td or Tdap) 01/17/2032 01/16/2022, 11/02/2012 PNEUMOCOCCAL VACCINE FOR HIG H RISK PATIENTS (#2) 2044 01/17/2014 (External Complet ion of Vaccination per patient) Care Teams Assistant Housekeeping Manager Relationship Specialty Start Date End Date Dominic Rudolph MD PCP - General Internal Medicine 01/12/20
--- OUTSIDE RECORDS SUMMARY | 2025-01-05 17:21 | XMS_ITS | Encounter Summary ---
Author Organization [facility] Address [address] [place] [address] Care Team Providers Care Accessories Repairer Name Role Phone Dominic Rudolph MD Primary Care Provider Unava ilable Reason for Visit * Reason Onset Date Comments Appointment-Internal Referral 10/17/2022 En docrinology Encounter Details Date Type Department Care Team Description 10/17/2022 Telephone Internal Medicine - [address], [address] [place] [address] Dominic Rudolph MD Appointment-Internal Referral (Endocrinology) Social History Tobacco Use Types Packs/Day Years [...] was confirmed or suspected to have Coronavirus/COVID-19? No / Unsure 10/20/2022 9:16 AM EST documented as of this encounter Miscellaneous Notes * Telephone Encounter - Lisa Bass - 10/17/2022 10:45 AM EST Good morning Dr. Heller, Made call & pt declined to schedule stating she has a endocrinology Dr. At this time referral will be closed. Thank you Lisa documented in this encounter Plan of Treatment Not on file documented as of this encounter Visit Diagnoses Not on filedocumented in this encounter Care Teams Accessories Repairer Relationship Specialty Start Date End Date Dominic Rudolph MD PCP - General Internal Medicine 01/12/20 documented as of this encounter
--- OUTSIDE RECORDS SUMMARY | 2025-01-05 17:21 | XMS_ITS | Encounter Summary ---
Author Organization [facility] Address [address] [place] [address] Care Team Providers Care Kiln Puller Name Role Phone Dominic Rudolph MD Primary Care Provider Unava ilable Reason for Visit * Reason Onset Date Comments Call From Hospital 01/12/2020 Encounter Details Date Type Department Care Team Description 01/12/2020 Telephone OBGYN - [facility] [address] [place] [address] Janice Torres MD [address] [place] [phone] Call From Hospital Social History Tobacco Use Types Packs/Day Years Used Date Smoking Tobacco: Never Smokeless Tobacco: Never Alcohol Use Standard Drinks/Week Comments Yes 0 (1 standard drink = 0.6 oz pur e alcohol) socially Sex Assigned at Date Recorded Not on file documented as of this encounter Miscellaneous Notes * Telephone Encounter - Aspen Wilson - 01/12/2020 2:53 PM EDT Spoke with pt and made her aware her arrival time has changed to 11:00 am and procedure will start at 12:30 pm. I also forward a message to the provider. AM * Telephone Encounter - Dee Polanco - 01/12/2020 1:51 PM EDT Iris from [facility] called to let us know Dr Torres's patient's surgery was moved to 12:30 PM tomorrow documented in this encounter Plan of Treatment Not on file documented as of this encounter Visit Diagnoses Not on filedocumented in this encounter Care Teams Kiln Puller Relationship Specialty Start Date End Date Dominic Rudolph MD PCP - General Internal Medicine 01/12/20 documented as of this encounter
--- OUTSIDE RECORDS SUMMARY | 2025-01-05 17:21 | XMS_ITS | Encounter Summary ---
Author Organization [facility] Address [address] [place] [id number] Care Team Providers Care Boring Machine Operator Double End Name Role Phone Name, [place] HUYNH Primary [...] Care Team Description 08/05/2015 Refill Adult Medicine [address] [address] Luther Bowen MD Social History Tobacco Use [...] MCG tablet [Luther Bowen MD] Preferred pharmacy: [facility] [address] [place] [address] Comment: documented in this encounter Plan of Treatment Not on file documented as of this encounter Visit Diagnoses Not on filedocumented in this encounter Care Teams Boring Machine Operator Double End Relationship Specialty Start Date End Date [place] [...]
== END 2025-01-05 15:59 | disposition home or self-care (01) ==
LOC: HO.ENCR 15:43
PROVIDERS: PCP Internal Medicine; Visit Provider Student in an Organized Health Care Education/Training Program
DX: C73 Malignant neoplasm of thyroid gland (principal); E89.0 Postprocedural hypothyroidism
CPT/HCPCS: 99214

== ENCOUNTER 2025-02-16 05:59 | Outpatient (REF) | payer OTHER, SELFPAY ==
[2025-02-16 08:15] LABS: Free T4 (Free Thyroxine) 1.46 ng/dL (0.71-1.85)
== END 2025-02-16 06:00 | disposition home or self-care (01) ==
LOC: HO.LAB 05:59
PROVIDERS: PCP Internal Medicine; Visit Provider Student in an Organized Health Care Education/Training Program
DX: C73 Malignant neoplasm of thyroid gland (principal); E89.0 Postprocedural hypothyroidism
CPT/HCPCS: 36415; 84439; 84443

== ENCOUNTER 2025-02-20 14:47 | Outpatient (AMB) | payer OTHER, SELFPAY ==
[2025-02-20 14:51] VITALS: BP 106/84; PULSE 79; O2SAT 97; BMI 37.7
--- NOTE | 2025-02-20 14:51 | A.OFFVIS_ITS ---
Vital Signs 02/20/25 14:51 Height 5 ft 1 in Weight 199 lb 11.821 oz BMI 37.7 BP 106/84 Blood Pressure Location Lt brachial Position Sitting Pulse 79 Pulse Source Pulse Oximeter Pulse Oximetry (%) 97 Oxygen Delivery Method Room Air Intake Visit Reasons: Obesity Intake Note: Patient present today for Obesity office visit. Agitator Operator Required: No Accompanied by: Self / Same As Patient Allergies drospirenone [From SHAQ 28] Allergy (Unknown, Verified 02/20/25 14:56) SWELLING ethinyl estradiol [From SHAQ 28] Allergy (Unknown, Verified 02/20/25 14:56) SWELLING naproxen [From NAPROSYN] Allergy (Unknown, Verified 02/20/25 14:56) SWELLING sulfamethoxazole [From BACTRIM] Allergy (Unknown, Verified 02/20/25 14:56) RASH trimethoprim [From BACTRIM] Allergy (Unknown, Verified 02/20/25 14:56) RASH adhesive tape Allergy (Unknown, Uncoded 02/20/25 14:56) Unknown Medication List - Last Reconciled 02/20/25 by Malika Ambriz MD bisacodyl (Dulcolax (bisacodyl)) 10 mg HI DAILY PRN cholecalciferol (vitamin D3) 125 mcg PO DAILY 90 days docusate sodium (Colace) 100 mg PO BID levothyroxine (Synthroid) 50 mcg PO DAILY sennosides (senna) 17.2 mg (2 x 8.6 mg) PO BEDTIME PRN 90 days Synthroid (levothyroxine) 200 mcg PO DAILY NS HPI Comments Details: 84-year-old female here today to establish care for obesity. She already sees me for history of thyroid cancer and postsurgical hypothyroidism Current BMI 37.7 kg per m2, current weight 199 lb She is status post gastric banding in 2012 with subsequent conversion to sleeve gastrectomy in 2017, then revision of sleeve gastrectomy with hiatal hernia repair performed on 01/28/2024. Since her revision in January 2024 she has lost 66 lb or 31.9% of total body weight. She was 213 lb prior to her revision, and weight dropped to 140 lb up until August 2024. Then she started gaining back the weight, now weight is up to 199 lb. Was over weight growing up. Highest weight 303 lbs, before she had inital sleeve gastrectomy in 2017 Lowest weight 140 lbs post revision up until Aug 2024. She has been following with weight management program over here, with a an exercise plan as well as a meal plan for the past year. Meal plan involves limiting to protein and vegetables and protein powder with good hydration. Exercise plan: Treadmill 5 times a week, 400 calories speed 4.7, inclines 6, lately some days she is not going because she is not seeing much results. No change in ring size or shoe size. No cushingoid features such as skin thinning, abdominal striae, facial plethora, no history of hypertension, diabetes. Normal lipid level and A1c from July 2024. Physical exam General: sitting comfortably in no acute distress HEENT: normocephalic/atraumatic, Neck: supple,, no dorsocervical or supraclavicular fat pads Cardiac: normal heart sounds Pulm: normal breath sounds B/L, no added breath sounds Abd: not distended, no tenderness Extremities: no edema, no signs of myxedema Neuro: AAO x3, Speech: normal, no facial droop, moving all 4 extremities Laboratory Tests 07/23/24 02/16/25 09:22 06:10 Hemoglobin A1c % 4.8 Insulin Level 4 AST 18 ALT 13 Triglycerides 46 Cholesterol 147 LDL Cholesterol, Calc 55 HDL Cholesterol 83 TSH 0.20 L Free T4 1.46 PFSH Medical History Vitamin D deficiency Hypothyroidism Thyroid cancer Surgical History S/P repair of paraesophageal hernia S/P gastric sleeve procedure Hx of section Hx of dilation and curettage Hx of thyroidectomy Family History Father Asthma Hypertension Mother Hypertension Other S/P repair of paraesophageal hernia Social History Household Members: Family Housing: House Are you a primary medicare sales representative to a significant other at home: No Do you presently have visiting nurse or other home services: No Alcohol intake: current Alcohol intake frequency: does not drink Patient Tobacco Use Status: Never used Tobacco service: No Assessment & Plan Assessment & Plan (1) Obesity (BMI 30-39.9): Code(s): E66.9 - Obesity, unspecified Category: Medical Plan: 44-year-old female coming in today to establish care for obesity. She already sees me for thyroid cancer and postsurgical hypothyroidism. Current BMI 37.7 kg per m2, current weight 199 lb She is status post gastric banding in 2012 with subsequent conversion to sleeve gastrectomy in 2017, then revision of sleeve gastrectomy with hiatal hernia repair performed on 01/28/2024. Since her revision in January 2024 she has lost 66 lb or 31.9% of total body weight. She was 213 lb prior to her revision, and weight dropped to 140 lb up until August 2024. Then she started gaining back the weight, now weight is up to 199 lb. Was over weight growing up. Highest weight 303 lbs, before she had inital sleeve gastrectomy in 2017 Lowest weight 140 lbs post revision up until Aug 2024. No acromegalic or cushingoid features. She has been following with weight management program over here, with a an exercise plan as well as a meal plan for the past year. Meal plan involves limiting to protein and vegetables and protein powder with good hydration. Exercise plan: Treadmill 5 times a week, 400 calories speed 4.7, inclines 6, lately some days she is not going because she is not seeing much results. I reviewed with patient the importance of weight loss as it relates to decreasing the risk of worsening control of diabetes, cardiovascular disease, obstructive sleep apnea, arthritis. We reviewed the importance of decreasing total calorie consumption, minimizing fats and carbohydrates. We discussed the method of 500 calorie deficit per day using phone calorie apps such as lose it or [employer] fitness pal. She has already is also been following with the weight management clinic where she is prescribed a meal plan which she has been following for the past year. She also has a an exercise plan from the weight management clinic . I have asked her to add resistance training to her exercise regimen about 2-3 days a week with weight lifting and resistance bands. Continue current aerobic activity. She is very motivated to lose weight and is maintaining a good exercise regimen, plus some additional information giving regarding dietary education. In addition to lifestyle modification I would strongly believe that she is a good candidate for weight loss medications. I I would like to start her on Zepbound which is a GLP 1/GI P agonist, patient would be an excellent candidate for this medication. No family history of thyroid cancer, no personal history of pancreatitis, no history of gallstones. No current alcohol use. I discussed the adverse effects of GI intolerance, risk of pancreatitis and risk of medullary thyroid cancer seen in rodents but not human being. this medication will result in about 15-20% weight loss which would be her target. She is not a good candidate for other weight loss medications which are less potent such as phentermine, as those only result in about 5% weight loss which is a short-term solution, 5% weight loss would not be getting her to her goal target. Plus weight management is a terminal gauger supervisor chronic treatment which requires medications that patients can be on safely for long periods of time. Plan: -start zepbound 2.5 mg weekly injection -continue follow up with the weight management program for exercise and meal plan -follow up in 6 weeks (2) Hypothyroidism: Code(s): E03.9 - Hypothyroidism, unspecified Category: Medical Qualifiers: Hypothyroidism type: postoperative Qualified Code(s): E89.0 - Postprocedural hypothyroidism Plan: TSH goal 0.5-2. Excellent response to therapy with regards to history of thyroid cancer. 12/25/2024: TSH 9.71, free T4 1.14 Synthroid was then increased to 250 mcg daily. Her weight based dose of levothyroxine is 150 mcg so I am unsure why she is requiring such a high dose. She has a history of sleeve gastrectomy, that could be affecting some of her absorption possibly. Otherwise she is not on any interfering medications. 02/16/2025: TSH 0.2, free T4 1.46, since TSH is below goal, we will decrease the dose of Synthroid. Plan: -decrease Synthroid to 225 mcg daily by taking an additional 25 mcg pill to the 200 mcg pill -ordered TSH, free T4, to be done in 6 weeks -we will reach out with the results of the labs on the portal Plan I spent 45 minutes in reviewing the record, seeing the patient and documenting in the medical record. Orders: Orders Thyroid Stimulating Hormone 6 Weeks E89.0 - Postprocedural hypothyroidism Free T4 (Free Thyroxine) 6 Weeks E89.0 - Postprocedural hypothyroidism Medications: New tirzepatide (weight loss) (Zepbound) for 4 weeks 2.5 mg (0.5 mL) subcut QWEEK 2 mL 3RF levothyroxine (Synthroid) Take 1 tablet daily along with you 200 mcg tablet daily BRAND NAME ONLY No substitution allowed BLAISE 25 mcg PO DAILY 90 tabs 3RF Discontinued levothyroxine (Synthroid) Take 1 tablet daily along with you 200 mcg tablet daily BRAND NAME ONLY No substitution allowed BLAISE Discontinued Reason: Doctor's Order 50 mcg PO DAILY 90 tabs 2RF Patient Instructions: Weight loss counselling ? Limit added sugars to less than 25 grams daily. There are 4.2 grams of sugar per teaspoon of sugar. A teaspoon of honey has 6 grams of sugar! Bread also can have more sugar than you think-check labels ? No soda or juices. Drink water, unsweetened iced tea or seltzer ? Limit eating out/take out or prepared meals to twice weekly at most ? Avoid red meat, hot dogs, santiago and deli meat. Substitute plant protein for animal protein as much as you can. Beans, nuts, tofu, soy milk ? Limit cheese to 1 ounce a few times weekly ? Eat high fiber foods like beans, apples and green veggies, salsa is a great snack with whole grain cracker like Wasa ? Look for the whole grain stamp when choosing bread etc. Aim for 48 grams of whole grains daily. Whole wheat does not equal whole grains! ? Don't keep tempting treats in the house. Go out once in a while for a treat. ? Don't eat anything deep fried or cream based-no sour cream Exercise 30 mins 5 days a week with treadmill plus 20 mins of 2-3 days a week of resistance training 500 calorie deficit per day using phone flaca LOSE it or continue with the meal plan advised by weight management clinic Start Zepbound 2.5 mg weekly injection, if approved please let me know Coding Level of Care Code Est Pt Level 4 (18484) Diagnoses Obesity (BMI 30-39.9) E66.9 Postoperative hypothyroidism E89.0 Hypothyroidism type: postoperative Time Spent (min) 45
--- OUTSIDE RECORDS SUMMARY | 2025-02-20 16:33 | XMS_ITS | Clinical Summary ---
Author Organization [employer] Address [address] [place] [address] Care Team Providers Care Rigger Name Role Phone Unavailable Primary Care Provider [...] 1979 FIT 1979 FOBT 1979 Sigmoidoscopy 1979 Disability Screening 1979 Alcohol/Substance Use Screening 1991 Tobacco Screening 1991 Family Planning (PISQ) 1994 Hepatitis B Vaccines (1 of 3 - 19+ 3-dose series) 1998 Pap Smear 2000 Cervical Cancer Screening 2009 HPV/Cotest 2009 Mammogram 2019 COVID-19 Vaccine ( season) 2024 09/13/2021, 12/14/2020, 11/16/2020 Influenza Vaccine (Season Ended) 2025 08/29/2021, 06/02/2017, 07/28/2016, Additional history exists Zoster Vaccines [...] Years) and At-Risk Patients (6 to 49) Years Aged Out No longer eligible based on patient's age to complete this topic RSV under 20 months Aged Out No longe r eligible based on patient's age to complete this topic Rotavirus Vaccines Aged Out No longer eligible based on patient's age to complete this topic
== END 2025-02-20 15:19 | disposition home or self-care (01) ==
LOC: HO.ENCR 14:48
PROVIDERS: PCP Internal Medicine; Visit Provider Student in an Organized Health Care Education/Training Program
DX: E66.9 Obesity, unspecified (principal); E89.0 Postprocedural hypothyroidism
CPT/HCPCS: 99214

== ENCOUNTER → 2025-02-20 14:47 | Outpatient (BNVA) | payer OTHER, SELFPAY | PROVIDERS: PCP Internal Medicine; Visit Provider Student in an Organized Health Care Education/Training Program ==

== ENCOUNTER 2025-05-01 06:15 | Outpatient (REF) | payer OTHER, SELFPAY ==
--- OUTSIDE RECORDS SUMMARY | 2025-05-01 06:17 | XMS_ITS | Clinical Summary ---
Author Organization [facility] Address [address] [place] [address] Care Team Providers Care Abatement Worker Name Role Phone Dominic Rudolph MD Primary Care Provider [phone] Surgical History Surgery Date Site/Laterality Comments LAPAROSCOPIC GASTRIC BANDING 06/2013 PROCEDURE: LAP ADJUSTABLE GASTRIC BAND; COMMENT: 09/24/17 removed TONSILLECTOMY PROCEDURE: HISTORICAL TONSILLECTOMY OTHER SURGICAL HISTORY 11/2010 PROCEDURE: AZ INSERTION INTRAUTERINE DEVICE IUD; COMMENT: Dr. Carrillo, record indicates removal on 11/29/2010 this was when she had it inserted BARIATRIC SURGERY [id number] PROCEDURE: AZ LAPS GSTRC RSTRICTIV PX LONGITUDINAL GASTRECTOMY THYROIDECTOMY 01/24/2014 PROCEDURE: HISTORICAL TOTAL THYROIDECTOMY OTHER SURGICAL HISTORY 01/2020 PROCEDURE: AZ DILATION & CURETTAGE DX&/THER NONOBSTETRIC Medical History [...] obesity wit h BMI of 40.0-44.9, adult ([facility]) S/P D&C (status post dilatio [...] 5 Years) and At-Risk Patients (6 to 49 Years) (1 of 2 - PCV) 1998 Cervical Cancer Screening: HPV 2000 Breast Cancer Screening 07/19/2021 07/19/20, 02/25/2018, 03/19/2017, Additional history exists Cholesterol Screening (Lipid Panel) 08/06/2022 Colorectal Cancer Screening: Colonoscopy 08/06/2022 HIV Screening 08/06/2022 Hepatitis C Screening 08/06/2022 Social Influencers of Health Screening 08/06/2022 COVID-19 Vaccine (4 - season) 2024 09/13/2021, 12/14/2020, 11/16/2020 Depression Screening 09/07/2024 Influenza Vaccine (#1) 2025 , 06/02/2017, 07/28/2016, Additional history exists DTaP,Tdap,and [...] with the aid of computer-aided detection. Comparison is made with 02/25/2018 and as far back as 02/01/2015. Breast parenchyma is composed of scattered fibroglandular densities. No new suspicious mass, architectural distortion, or suspicious [...] Recently Relevant to Health Maintenance Care Teams Abatement Worker Relationship Specialty Start Date End Date Dominic Rudolph MD [address] [place] [address] Dr George [place] PCP - General Internal Medicine 01/12/20
[2025-05-01 08:12] LABS: Free T4 (Free Thyroxine) 1.27 ng/dL (0.71-1.85); Thyroid Stimulating Hormone 0.43 uIU/mL (0.32-4.0)
== END 2025-05-01 06:16 | disposition home or self-care (01) ==
LOC: HO.LAB 06:15
PROVIDERS: PCP Internal Medicine; Visit Provider Student in an Organized Health Care Education/Training Program
DX: E89.0 Postprocedural hypothyroidism (principal)
CPT/HCPCS: 36415; 84439; 84443

== ENCOUNTER 2025-05-03 15:43 | Outpatient (AMB) | payer OTHER, SELFPAY ==
[2025-05-03 15:46] VITALS: BP 108/80; PULSE 78; O2SAT 99; BMI 35.9
--- NOTE | 2025-05-03 15:46 | A.OFFVIS_ITS ---
Vital Signs 05/03/25 15:46 Height 5 ft 1 in Weight 189 lb 13.088 oz BMI 35.9 BP 108/80 Blood Pressure Location Lt brachial Position Sitting Pulse 78 Pulse Source Pulse Oximeter Pulse Oximetry (%) 99 Oxygen Delivery Method Room Air Intake Visit Reasons: Obesity Intake Note: Patient present today for Obesity office visit. Hole Digger Operator Required: No Accompanied by: Self / Same As Patient Allergies drospirenone (From SHAQ 28) Allergy (Unknown, Verified 05/03/25 15:50) SWELLING ethinyl estradiol (From SHAQ 28) Allergy (Unknown, Verified 05/03/25 15:50) SWELLING naproxen (From NAPROSYN) Allergy (Unknown, Verified 05/03/25 15:50) SWELLING sulfamethoxazole (From BACTRIM) Allergy (Unknown, Verified 05/03/25 15:50) RASH trimethoprim (From BACTRIM) Allergy (Unknown, Verified 05/03/25 15:50) RASH adhesive tape Allergy (Unknown, Uncoded 05/03/25 15:50) Unknown HPI Comments Details: 84-year-old female here today for fup of obesity. She already sees me for history of thyroid cancer and postsurgical hypothyroidism Current BMI 37.7 kg per m2, current weight 199 lb She is status post gastric banding in 2012 with subsequent conversion to sleeve gastrectomy in 2017, then revision of sleeve gastrectomy with hiatal hernia repair performed on 01/28/2024. Since her revision in January 2024 she has lost 66 lb or 31.9% of total body weight. She was 213 lb prior to her revision, and weight dropped to 140 lb up until Dece mb2023. Then she started gaining back the weight, now weight is up to 199 lb. Was over weight growing up. Highest weight 303 lbs, before she had inital sleeve gastrectomy in 2017 Lowest weight 140 lbs post revision up until Aug 2024. She has been following with weight management program over here, with a an exercise plan as well as a meal plan for the past year. Meal plan involves limiting to protein and vegetables and protein powder with good hydration. Exercise plan: Treadmill 5 times a week, 400 calories speed 4.7, inclines 6, lately some days she is not going because she is not seeing much results. No change in ring size or shoe size. No cushingoid features such as skin thinning, abdominal striae, facial plethora, no history of hypertension, diabetes. Normal lipid level and A1c from July 2024. Interval history Started Zepbpund 2.5 mg weekly injection mid February 2025, has had 8 injections, no side effects Lost 10 lbs in the last 8 weeks Current weight 189 lbs down from 199 lbs in mid February 2025, BMI 35.9 down from 37 Meal plan involves limiting to protein and vegetables and protein powder with good hydration. Exercise plan: Treadmill 5 times a week, 400 calories speed 4.7, inclines 6, Remains very motivated Physical exam General: sitting comfortably in no acute distress HEENT: normocephalic/atraumatic, Neck: supple,, no dorsocervical or supraclavicular fat pads Cardiac: normal heart sounds Pulm: normal breath sounds B/L, no added breath sounds Abd: not distended, no tenderness Extremities: no edema, no signs of myxedema Neuro: AAO x3, Speech: normal, no facial droop, moving all 4 extremities Laboratory Tests 07/23/24 02/16/25 09:22 06:10 Hemoglobin A1c % 4.8 Insulin Level 4 AST 18 ALT 13 Triglycerides 46 Cholesterol 147 LDL Cholesterol, Calc 55 HDL Cholesterol 83 TSH 0.20 L Free T4 1.46 Laboratory Tests 05/01/25 06:29 TSH 0.43 Free T4 1.27 [facility] Medical History Vitamin D deficiency Hypothyroidism Thyroid cancer Surgical History S/P repair of paraesophageal hernia S/P gastric sleeve procedure Hx of section Hx of dilation and curettage Hx of thyroidectomy Family History Father Asthma Hypertension Mother Hypertension Other S/P repair of paraesophageal hernia Social History Household Members: Family Housing: House Are you a primary child care giver to a significant other at home: No Do you presently have visiting nurse or other home services: No Alcohol intake: current Alcohol intake frequency: does not drink Patient Tobacco Use Status: Never used Tobacco service: No Physical Exam Vital Signs: Last Vital Signs Pulse 78 05/03/25 15:46 BP 108/80 05/03/25 15:46 Pulse Ox 99 05/03/25 15:46 Oxygen Delivery Method Room Air 05/03/25 15:46 BMI result Body Mass Index 35.9 Assessment & Plan Assessment & Plan (1) Obesity (BMI 30-39.9): Code(s): E66.9 - Obesity, unspecified Category: Medical Plan: 44-year-old female coming in today for fup of obesity. She already sees me for thyroid cancer and postsurgical hypothyroidism. She is status post gastric banding in 2012 with subsequent conversion to sleeve gastrectomy in 2017, then revision of sleeve gastrectomy with hiatal hernia repair performed on 01/28/2024. Since her revision in January 2024 she had lost 66 lb or 31.9% of total body weight. She was 213 lb prior to her revision, and weight dropped to 140 lb up until August 2024. Then she started gaining back the weight, weight up to 199 lb February 2025 . She has been following with weight management program over here, with a an exercise plan as well as a meal plan for the past year. Meal plan involves limiting to protein and vegetables and protein powder with good hydration. Exercise plan: Treadmill 5 times a week, 400 calories speed 4.7, inclines 6 Started Zepbpund 2.5 mg weekly injection mid February 2025, has had 8 injections, no side effects Lost 10 lbs in the last 8 weeks Current weight 189 lbs down from 199 lbs in mid February 2025, BMI 35.9 down from 37 Meal plan involves limiting to protein and vegetables and protein powder with good hydration. Exercise plan: Treadmill 5 times a week, 400 calories speed 4.7, inclines 6, Remains very motivated Plan: -increase Zepbound to 5 mg weekly injection -continue follow up with the weight management program for exercise and meal plan -follow up in 2 months (2) Hypothyroidism: Code(s): E03.9 - Hypothyroidism, unspecified Category: Medical Qualifiers: Hypothyroidism type: postoperative Qualified Code(s): E89.0 - Postprocedural hypothyroidism Plan: TSH goal 0.5-2. Excellent response to therapy with regards to history of thyroid cancer. 12/25/2024: TSH 9.71, free T4 1.14 Synthroid was then increased to 250 mcg daily. Her weight based dose of levothyroxine is 150 mcg so I am unsure why she is requiring such a high dose. She has a history of sleeve gastrectomy, that could be affecting some of her absorption possibly. Otherwise she is not on any interfering medications. 02/16/2025: TSH 0.2, free T4 1.46, since TSH is below goal, 02/20/2025: Levothyroxine reduced to 225 mcg daily 05/01/2025: TSH 0.43, free T4 1.27, TSH is very close to goal Plan: -continue Synthroid to 225 mcg daily by taking an additional 25 mcg pill to the 200 mcg pill -labs ordered to be done prior to follow up for thyroid cancer in July 2025 Plan I spent 30 minutes in reviewing the record, seeing the patient and documenting in the medical record. Orders: Orders Thyroglobulin Antibodies 07/03/25 C73 - Malignant neoplasm of thyroid gland, E89.0 - Postprocedural hypothyroidism Thyroglobulin Tumor Marker 07/03/25 C73 - Malignant neoplasm of thyroid gland, E89.0 - Postprocedural hypothyroidism Thyroid Stimulating Hormone 07/03/25 C73 - Malignant neoplasm of thyroid gland, E89.0 - Postprocedural hypothyroidism Free T4 (Free Thyroxine) 07/03/25 C73 - Malignant neoplasm of thyroid gland, E89.0 - Postprocedural hypothyroidism Thyroglobulin 07/03/25 C73 - Malignant neoplasm of thyroid gland, E89.0 - Postprocedural hypothyroidism Medications: New tirzepatide (weight loss) (Zepbound) 5 mg (0.5 mL) subcut QWEEK 2 mL 6RF E66.9 - Obesity, unspecified Discontinued tirzepatide (weight loss) (Zepbound) for 4 weeks Discontinued Reason: Doctor's Order 2.5 mg (0.5 mL) subcut QWEEK 2 mL 3RF Patient Instructions: Increase Zepbound to 5 mg weekly injection Do blood work a week prior to your next follow up in July Coding Level of Care Code Est Pt Level 4 (94314) Diagnoses Obesity (BMI 30-39.9) E66.9 Postoperative hypothyroidism E89.0 Hypothyroidism type: postoperative Time Spent (min) 30
--- OUTSIDE RECORDS SUMMARY | 2025-05-03 16:52 | XMS_ITS | Clinical Summary ---
Author Organization [facility] Address [address] [place] [address] Care Team Providers Care Sales Incentive Analyst Name Role Phone Dominic Rudolph MD Primary Care Provider [phone] Surgical History Surgery Date Site/Laterality Comments LAPAROSCOPIC GASTRIC BANDING 06/2013 PROCEDURE: LAP ADJUSTABLE GASTRIC BAND; COMMENT: 09/24/17 removed TONSILLECTOMY PROCEDURE: HISTORICAL TONSILLECTOMY OTHER SURGICAL HISTORY 11/2010 PROCEDURE: OK INSERTION INTRAUTERINE DEVICE IUD; COMMENT: Dr. Carrillo, record indicates removal on 11/29/2010 this was when she had it inserted BARIATRIC SURGERY [id number] PROCEDURE: OK LAPS GSTRC RSTRICTIV PX LONGITUDINAL GASTRECTOMY THYROIDECTOMY 01/24/2014 PROCEDURE: HISTORICAL TOTAL THYROIDECTOMY OTHER SURGICAL HISTORY 01/2020 PROCEDURE: [place] DILATION & CURETTAGE DX&/THER NONOBSTETRIC Medical History [...] obesity wit h BMI of 40.0-44.9, adult ([facility]) S/P D&C (status post dilatio n and [...] Recently Relevant to Health Maintenance Care Teams Sales Incentive Analyst Relationship Specialty Start Date End Date Dominic Rudolph MD [address] [place] [address] Dr George MA PCP - General Internal Medicine 01/12/20
== END 2025-05-03 16:24 | disposition home or self-care (01) ==
LOC: HO.ENCR 15:43
PROVIDERS: PCP Internal Medicine; Visit Provider Student in an Organized Health Care Education/Training Program
DX: E66.9 Obesity, unspecified (principal); E89.0 Postprocedural hypothyroidism
CPT/HCPCS: 99214

== ENCOUNTER 2025-06-23 09:25 | Outpatient (REF) | payer OTHER, SELFPAY ==
--- OUTSIDE RECORDS SUMMARY | 2025-06-23 10:30 | XMS_ITS | Clinical Summary ---
Author Organization [employer] Address [address] [facility] 7[address] [place] [address] Care Team Providers Care Riprap Placing Supervisor Name Role Phone Unavailable Primary Care Provider [...] 2009 Mammogram 2019 COVID-19 Vaccine ( season) 2025 09/13/2021, 12/14/2020, 11/16/2020 Influenza Vaccine (#1) 2025 , 06/02/2017, 07/28/2016, Additional history exists Zoster [...]
--- OUTSIDE RECORDS SUMMARY | 2025-06-23 10:30 | XMS_ITS | Clinical Summary ---
Author Organization [facility] Address [address] [place] [address] Care Team Providers Care Electric Motor Analyst Name Role Phone Dominic Rudolph MD Primary Care Provider [phone] Surgical History Surgery Date Site/Laterality Comments LAPAROSCOPIC [...] h BMI of 40.0-44.9, adult ([facility]) S/P D&C (status post dilatio n and [...] Health Maintenance Due Date Last Done Comments Colorectal Cancer Screening: Colonoscopy 1979 Hepatitis B Vaccines (1 of 3 - 19+ 3-dose series) 1998 Pneumococcal Vaccine: Pediatrics (0 to 5 Years) and At-Risk Patients (6 to 49 Years) (1 of 2 - PCV) 1998 Cervical Cancer Screening: HPV 2000 Breast Cancer Screening 07/19/2021 07/19/20, 02/25/2018, 03/19/2017, Additional history exists Cholesterol Screening (Lipid Panel) 08/06/2022 HIV Screening 08/06/2022 Hepatitis C Screening 08/06/2022 Social Influencers of Health Screening 08/06/2022 Depression Screening 09/07/2024 COVID-19 Vaccine (4 - season) 2025 09/13/2021, 12/14/2020, 11/16/2020 Influenza Vaccine (#1) 2025 , 06/02/2017, 07/28/2016, Additional history exists DTaP,Tdap,and Td Vaccines (4 - Td or Tdap) 01/17/2032 01/16/2022, 11/02/2012, 08/23/2004 RSV Immunization Adult Patients (1 - 1-dose 75+ series) 2054 HIB [...] Recently Relevant to Health Maintenance Care Teams Electric Motor Analyst Relationship Specialty Start Date End Date Dominic Rudolph MD [address] [place] [address] Dr George MA PCP - General Internal Medicine 01/12/20
[2025-06-23 13:44] LABS: Free T4 (Free Thyroxine) 1.41 ng/dL (0.71-1.85); Thyroid Stimulating Hormone 0.05 uIU/mL (0.32-4.0)
[2025-06-26 18:53] LABS: Thyroglobulin <0.1 ng/mL; Thyroglobulin Antibodies 1 IU/mL (< or = 1)
== END 2025-06-23 09:26 | disposition home or self-care (01) ==
LOC: HO.10HDL 09:25
PROVIDERS: Visit Provider Student in an Organized Health Care Education/Training Program
DX: E89.0 Postprocedural hypothyroidism (principal); C73 Malignant neoplasm of thyroid gland
CPT/HCPCS: 36415; 84432; 84439; 84443; 86800

== ENCOUNTER 2025-07-19 15:36 | Outpatient (AMB) | payer OTHER, SELFPAY ==
[2025-07-19 15:46] VITALS: BP 118/78; PULSE 96; O2SAT 97; BMI 34.2
--- NOTE | 2025-07-19 15:46 | MHC.OFFVIS ---
Vital Signs 07/19/25 15:46 Height 5 ft 1 in Weight 180 lb 12.465 oz BMI 34.2 BP 118/78 Blood Pressure Location Rt brachial Position Sitting Pulse 96 Pulse Source Pulse Oximeter Pulse Oximetry (%) 97 Oxygen Delivery Method Room Air Intake Visit Reasons: Hx of thyroid cancer, obesity Intake Note: Patient presents here today for Hx Thyroid Cancer Obesity, follow-up after completion of work-up. Thyroid Work-up completed on 07/03/2025. Contact Lens Lathe Operator Required: No Accompanied by: Self / Same As Patient Allergies drospirenone (From SHAQ 28) Allergy (Unknown, Verified 05/03/25 15:50) SWELLING ethinyl estradiol (From SHAQ 28) Allergy (Unknown, Verified 05/03/25 15:50) SWELLING naproxen (From NAPROSYN) Allergy (Unknown, Verified 05/03/25 15:50) SWELLING sulfamethoxazole (From BACTRIM) Allergy (Unknown, Verified 05/03/25 15:50) RASH trimethoprim (From BACTRIM) Allergy (Unknown, Verified 05/03/25 15:50) RASH adhesive tape Allergy (Unknown, Uncoded 05/03/25 15:50) Unknown HPI Comments Details: 45-year-old female here today for history of thyroid cancer and postsurgical hypothyroidism. She has a history of papillary thyroid cancer, status post total thyroidectomy in 2013 at [facility] in [place], pathology showing 1.6 cm PTC left-sided, with 5% cells of tall cell variant. There was additional multifocal microscopic foci of PTC within the right lobe. No extrathyroidal extension, no lymphatic invasion, no angioinvasion, AJCC stage I pT1 N0, TRENT intermediate risk of recurrence given portion of tall cell variant. She was previously seen by Dr. Ambriz on 05/03/25 for obesity, and on 01/05/25 for Thyroid cancer. This is my 1st time seeing this patient. Interval history: She reports doing well overall Taking Levothyroxine 225 mcg since November/2024, no issues with tolerance. Takes it early in the AM. She also requested that her medication be increased her Zepbound from 5mg to 7.5mg Denies cold or heat intolerance. No palpitations. No diarrhea or constipation. She has lost around 20 lbs since February when she was started on Zepbound. History of PTC in detail October 2013: Diagnosed with PTC, status post total thyroidectomy at [facility] in [place] with pathology showing 1.6 X 1.2 X 1.3 cm left-sided PTC with 5% cells of tall cell variant. There were additional multifocal microscopic foci of PTC within the right lobe but no parathyroid all extension was identified. AJCC stage I pT1 N0. TRENT intermediate risk of recurrence. 02/27/2014: Status post 35 mCi of radioactive iodine ablation with I 131 at [facility] in [place] 02/22/2014: Whole-body scan reported LEI uptake in the thyroid bed consistent with metastatic disease, no distant metastatic deposits identified. She was following with her maintenance man Dr. Roque at that time, and then later establish with [facility] endocrinology in 2018. 10/05/2017: Ultrasound of the neck revealed multiple enlarged cervical lymph nodes, apparently per chart review FNA biopsy of 1 of these was negative for malignancy. 03/25/2019: Thyrogen stimulated whole-body scan difficult persistent uptake within the thyroid bed and also faint uptake within the right neck concerning for lymph node metastasis. TSH 144.62, TG 0.2, TG antibody level of 5. 02/21/2019: Ultrasound of the neck revealed multiple bilateral enlarged lymph nodes including a left level 3 complex appearing 1.9 cm lymph node. FNA biopsy often enlarged right level 2, right level 4, right level 5 and left level 3 lymph nodes, all negative for cancer. TG washout was negative in all but the right level 2 lymph node were no TG washout was sent. Then apparently there was some issues with the adherence to medication. 11/21/2020: Thyrogen stimulated labs TSH of 91.16 with TG of 0.3, TG antibody of 6. Also around this time in 2020, she had fertility treatments, and can see if successfully. Further whole-body scans are I 131 treatment was deferred until her childbearing was complete. 10/30/2020: Ultrasound of the neck showed persistent lymphadenopathy. 05/21/2021: Ultrasound of the neck showed 3 of normal-appearing cervical lymph nodes a right level 1B, 1.1 cm, a right level 1B, 0.8 cm and a right level 1A, 0.3 cm lymph node. 06/05/2021: FNA biopsy of the right level 1B 1.1 cm cervical lymph node with no evidence of metastatic carcinoma identified. 05/08/2023: Whole-body scan only showed physiologic uptake. TSH was greater than 100, stimulated TG levels with the LC EMS was undetectable, TG antibody level was 2 05/22/2023: TSH 5.23, free T4 1.17, thyroglobulin by LC MS less than 0.4, TG antibody 3 06/19/2023: US neck Normal-appearing bilateral cervical lymph nodes 07/23/2024: TSH 7.71 Free T4 1.06 11/08/2024: TSH 12.82, free T4 1.19, TG by LC MS less than 0.4, TG antibody 3 Synthroid increased to 225 mcg daily from 200 mcg daily 12/01/2024: Ultrasound of the neck done, I reviewed the images myself which shows bilateral normal-appearing lymph nodes 12/25/2024: TSH 9.71, free T4 1.14 Physical exam: General: Well appearing. NAD. Not Cushingoid or Acromegalic Neck/Thyroid: Thyroid not palpable, no nodules. Eyes: No conjunctival injection, not lid lag or proptosis CV: RRR, no murmur. No edema. Resp:Lungs clear to auscultation bilaterally Abdomen: Soft, nontender. nondistended Extremities/Neuro: No weakness Laboratory Tests 06/23/25 09:30 TSH 0.05 L Free T4 1.41 Thyroglobulin <0.1 Thyroglobulin Antibody 1 10/10/22 12/03/22 01/01/23 06:47 11:46 12:27 Free T4 0.66 L 1.13 1.22 TSH 31.48 H 15.82 H 3.03 Thyroglobulin LC-MS/MS Thyroglobulin Antibody 03/21/23 04/30/23 05/05/23 08:37 16:05 11:05 Free T4 0.79 < 0.42 L < 0.42 L TSH 17.67 H > 100.00 H > 100.00 H Thyroglobulin LC-MS/MS <0.4 <0.4 <0.4 Thyroglobulin Antibody 2 H 2 H 2 H 05/15/23 05/22/23 10/19/23 Unknown 12:15 06:24 Free T4 0.85 1.17 TSH 57.59 H 5.23 H 3.27 Thyroglobulin LC-MS/MS <0.4 <0.4 Thyroglobulin Antibody 2 H 3 H 11/28/23 01/20/24 04/08/24 07:13 06:28 06:16 Free T4 1.01 1.61 1.04 TSH 3.53 0.03 L 2.35 Thyroglobulin LC-MS/MS Thyroglobulin Antibody 07/23/24 09:22 Free T4 1.06 TSH 7.71 H Thyroglobulin LC-MS/MS Thyroglobulin Antibody Laboratory Tests 11/08/24 01/02/25 16:17 06:26 TSH 12.82 H 9.71 H Free T4 1.19 1.14 Thyroglobulin LC-MS/MS <0.4 Thyroglobulin Antibody 3 H Exam: Ultrasound of the neck. 12/01/24 Comparison: None. Findings: Patient underwent total thyroidectomy 11 years prior. Ultrasound evaluation of the cervical lymph nodes was performed. Multiple bilateral jugular lymph nodes are identified. The technologist notes that many of these lymph nodes are new since prior study. Patient reportedly had a prior examination performed June 19, 2023. Please note that I do not have access to those images or report at this time. A total of 7 right jugular lymph nodes are identified. These measure up to 19 x 5 x 8 mm in size. There is a submental lymph node to the right of midline without a fatty hilum measuring 7 x 4 x 4 mm in size. Level 1B lymph nodes measure up to 10 x 3 x 6 mm in size without a definitive fatty hilum. A total of 4 left jugular lymph nodes are identified. These each have a fatty hilum. Impression: Indeterminate lymph nodes along the right jugular lymph node chain as above. Although I do not have the patient's prior imaging studies for review, this technologist labels these as ???new??? lymph nodes. Clinical correlation and direct correlation with the patient's prior imaging studies suggested. This document has been electronically signed by: Gómez Dempsey MD on 12/01/2024 06:09:04 US SOFT TISSUE OF THE NECK 06/19/23 CLINICAL INFORMATION: Malignant neoplasm of thyroid gland. COMPARISON: Soft tissue neck ultrasound 05/21/2021. TECHNIQUE: Linear transducer grayscale and color Doppler examination of the thyroid bed and surrounding soft tissue. FINDINGS: Thyroidectomy. Bilateral thyroidectomy beds appear normal. Imaged cervical lymph nodes: Right upper: 1.7 x 0.6 x 1.0 cm with preserved fatty hilum. Right lower: 1.8 x 0.6 x 0.5 cm with preserved fatty hilum. Left mid: 1.4 x 0.7 x 0.7 cm with preserved fatty hilum. US/US thyroid IMPRESSION: Normal-appearing bilateral cervical lymph nodes. It is difficult to compare individual nodes between studies but there has likely been no significant change compared to soft tissue neck ultrasound 05/21/2021. US SOFT TISSUE NECK 05/21/21 CLINICAL INFORMATION: Thyroid cancer. COMPARISON: 10/30/2020 TECHNIQUE: Ultrasound of the neck soft tissues is performed with high- frequency duffy-scale imaging and color Doppler. FINDINGS: THYROID BED: Prior thyroidectomy. No residual thyroid tissue demonstrated in the thyroid bed. No cystic or solid nodules demonstrated in the thyroid bed. There are numerous normal-appearing lymph nodes seen bilaterally RIGHT NECK SOFT TISSUES: Scattered lymph nodes are present. Some appear normal with normal fatty clefts and smooth margins without cortical thickening or lobulation. A few are abnormal and will be listed. The largest nodes are as follows: Level 3: 2.2 x 0.6 x 0.6 cm. Normal nicole architecture Level 3: 1.9 x 0.7 x 1.4 cm. Normal nicole architecture. Cortical thickness of 2.5 mm. There is an abnormal right level 1B lymph node that was not previously seen measuring 5 x 5 x 5 mm in size. It is rounded in appearance without fatty hilum identified. There is an abnormal lymph node seen within level 1B measuring 1.1 x 0.5 x 0.9 cm in size with a nodular cortex. There is normal fatty cleft present and no cortical thickening. There is an abnormal lymph node seen at level 1B which is essentially stable in size to previous study measuring 8 x 6 x 8 mm in size with some cortical nodularity but without significant change from prior study. Fatty hilum present. There is an abnormal-appearing lymph node level IA measuring 3 x 2 x 3 mm in size which is smaller than on prior study where it measured 5 x 4 x 5 mm in size. LEFT NECK SOFT TISSUES: Scattered architecturally normal nodes are present. The nodes show normal fatty hilus, normal cortical thickness, and no cystic change or calcification. No abnormal color flow. The largest nodes are as follows: Level 3: 1.1 x 0.3 x 0.8 cm. Normal nicole architecture. This was not noted on previous study. Level 3: 1.3 x 0.5 x 0.6 cm. Normal nicole architecture. This has enlarged and previously was 1.3 x 0.5 x 0.6 cm in size. Level 1B: 1.5 x 0.5 x 1.2 cm in size compared to previous study where it measured 1.2 x 0.6 x 0.9 cm in size. Normal nicole architecture. There are 3 other lymph nodes that were not seen on prior study: One within level 2 measuring 5 x 2 x 5 mm in size. This has normal architecture. Another is in level 3 measuring 1.1 x 0.3 x 0.8 cm in size. This has normal architecture. The third is in segment 5A measuring 6 x 4 x 5 mm in size with normal architecture. US/US soft tiss head and/or neck IMPRESSION: Numerous bilateral neck lymph nodes with normal architecture on the left with a few lymph nodes not noted previously as described. Some abnormal-appearing right neck lymph nodes as described above. In previous report it is stated that biopsies were performed of bilateral lymph nodes however none are listed as being within level 1 within the right neck where most of the abnormal-appearing lymph nodes are seen. US SOFT TISSUE NECK 10/30/20 CLINICAL INFORMATION: C73 - Malignant neoplasm of thyroid gland COMPARISON: CT neck with contrast, report 04/22/2019, ultrasound-guided lymph node fine-needle aspiration report 04/20/2019. TECHNIQUE: Ultrasound of the neck soft tissues is performed with high frequency duffy-scale imaging and color Doppler. FINDINGS: RIGHT NECK SOFT TISSUES: Scattered architecturally normal nodes are present. The nodes show normal fatty hilus, normal cortical thickness, and no cystic change or calcification. No abnormal color flow. The largest nodes are as follows: Level 2: 2.1 x 0.7 x 1.3 cm. Normal nicole architecture. Level 2: 1.4 x 0.5 x 1.2 cm. Normal nicole architecture. Level 3: 1.9 x 0.7 x 1.4 cm. Normal nicole architecture. LEFT NECK SOFT TISSUES: Scattered architecturally normal nodes are present. The nodes show normal fatty hilus, normal cortical thickness, and no cystic change or calcification. No abnormal color flow. Level 1B: 1.2 x 0.6 x 0.9 cm. Normal nicole architecture. Level 1B: 1.2 x 0.5 x 0.9 cm. Normal nicole architecture. US/US soft tiss head and/or neck IMPRESSION: 1. Bilateral architecturally normal nodes. No lymphadenopathy. 2. If further evaluation is clinically indicated, CT neck with contrast would be recommended. [facility] Medical History Vitamin D deficiency Hypothyroidism Thyroid cancer Surgical History S/P repair of paraesophageal hernia S/P gastric sleeve procedure Hx of section Hx of dilation and curettage Hx of thyroidectomy Family History Father Asthma Hypertension Mother Hypertension Other S/P repair of paraesophageal hernia Social History Household Members: Family Housing: House Are you a primary home day care provider to a significant other at home: No Do you presently have visiting nurse or other home services: No Alcohol intake: current Alcohol intake frequency: does not drink Patient Tobacco Use Status: Never used Tobacco service: No Physical Exam Vital Signs: Last Vital Signs Pulse 96 07/19/25 15:46 BP 118/78 07/19/25 15:46 Pulse Ox 97 07/19/25 15:46 Oxygen Delivery Method Room Air 07/19/25 15:46 BMI result Body Mass Index 34.2 Assessment & Plan Assessment & Plan (1) Hypothyroidism: Code(s): E03.9 - Hypothyroidism, unspecified Category: Medical Qualifiers: Hypothyroidism type: postoperative Qualified Code(s): E89.0 - Postprocedural hypothyroidism (2) Thyroid cancer: Code(s): C73 - Malignant neoplasm of thyroid gland Category: Medical Plan: 44-year-old female coming in today for follow up of papillary thyroid cancer, status post total thyroidectomy in 2013 at [facility] in [place], pathology showing 1.6 cm PTC left-sided, with 5% cells of tall cell variant. There was additional multifocal microscopic foci of PTC within the right lobe. No extrathyroidal extension, no lymphatic invasion, no angioinvasion, AJCC stage I pT1 N0, TRENT intermediate risk of recurrence given portion of tall cell variant. Over the years she has had multiple ultrasounds of the neck that showed some of normal cervical lymph nodes, FNA biopsy of these lymph nodes in 2018 and then again in 2019 was negative for cancer with TG washout being negative. Last ultrasound done in November 2024 did not show any abnormal lymph nodes. Her last whole-body scan from May 2023 also only showed physiologic uptake. Stimulated TG levels were undetectable with LC MS. She has had positive TG antibodies which makes us a little bit concerned about reliability of the thyroglobulin markers, however these have also declined over the years from being anywhere around 6 in 7 to most recently in 2022 when levels were at 3. Based on all this data, with most recently from 2022 both stimulated and unstimulated TG levels with the LCM as being undetectable, I would classify her as Currently with TRENT excellent response to therapy. TSH goal 0.5-2. Most recent labs from November 2024 : TSH 12.82, free T4 1.19, TG by LC MS less than 0.4, TG antibody 3 Synthroid increased to 225 mcg daily from 200 mcg daily 12/25/2024: TSH 9.71, free T4 1.14 She reports adhering to the medication and taking it consistently. Based on the last labs showing TSH 0.05, which is overly suppressed considering her TSH goal of 0.5-2. She otherwise has an excellent response based on dynamic evaluation of tumor markers and thyroid US from November/2024. It is possible that her weight loss has led to her requiring less Levothyroxine. Plan: -Decrease Synthroid to 200 mcg daily -ordered TSH, free T4, to be done in 6 weeks -Might consider repeating thyroid US in 1 year -thyroid cancer follow up would be due in 6 months with tumor markers (3) Obesity (BMI 30-39.9): Code(s): E66.9 - Obesity, unspecified Category: Medical Plan: 44-year-old female coming in today for fup of obesity. She already sees me for thyroid cancer and postsurgical hypothyroidism. She is status post gastric banding in 2012 with subsequent conversion to sleeve gastrectomy in 2017, then revision of sleeve gastrectomy with hiatal hernia repair performed on 01/28/2024. Since her revision in January 2024 she had lost 66 lb or 31.9% of total body weight. She was 213 lb prior to her revision, and weight dropped to 140 lb up until August 2024. Then she started gaining back the weight, weight up to 199 lb February 2025 . She has been following with weight management program over here, with a an exercise plan as well as a meal plan for the past year. Meal plan involves limiting to protein and vegetables and protein powder with good hydration. Exercise plan: Treadmill 5 times a week, 400 calories speed 4.7, inclines 6 Started Zepbpund 2.5 mg weekly injection mid February 2025, has had 8 injections, no side effects Lost 10 lbs in the last 8 weeks Current weight 189 lbs down from 199 lbs in mid February 2025, BMI 35.9 down from 37 Meal plan involves limiting to protein and vegetables and protein powder with good hydration. Exercise plan: Treadmill 5 times a week, 400 calories speed 4.7, inclines 6, Remains very motivated She is currently doing well on Zepbound, tolerating well, no side effects. Her weight has become stagnant as she is requiring an increase in her dose. Plan: -increase Zepbound to 7.5 mg weekly injection -continue follow up with the weight management program for exercise and meal plan -follow up in 6 months Plan 40 minutes spent reviewing previous records, labs, imaging, education and documenting in the chart Orders: Orders TSH reflex Free T4 6 Months E89.0 - Postprocedural hypothyroidism Thyroglobulin Antibodies 6 Months E89.0 - Postprocedural hypothyroidism Thyroglobulin 6 Months E89.0 - Postprocedural hypothyroidism TSH reflex Free T4 6 Weeks E89.0 - Postprocedural hypothyroidism Medications: New tirzepatide (weight loss) (Zepbound) 7.5 mg (0.5 mL) subcut QWEEK 2 mL 2RF Discontinued tirzepatide (weight loss) (Zepbound) Discontinued Reason: Doctor's Order 5 mg (0.5 mL) subcut QWEEK 2 mL 6RF E66.9 - Obesity, unspecified Coding Level of Care Code Est Pt Level 4 (94645) Complex EM visit Add On G2211 Diagnoses Postoperative hypothyroidism E89.0 Hypothyroidism type: postoperative Thyroid cancer C73 Obesity (BMI 30-39.9) E66.9
--- OUTSIDE RECORDS SUMMARY | 2025-07-19 18:42 | XMS_ITS | Clinical Summary ---
Author Organization [facility] Address [address] [place] [address] Care Team Providers Care Tool Maintenance Worker Name Role Phone Dominic Rudolph MD Primary Care Provider [phone] Surgical History Surgery Date Site/Laterality Comments LAPAROSCOPIC GASTRIC BANDING 06/2013 PROCEDURE: LAP ADJUSTABLE GASTRIC BAND; COMMENT: 09/24/17 removed TONSILLECTOMY PROCEDURE: HISTORICAL TONSILLECTOMY OTHER SURGICAL HISTORY 11/2010 PROCEDURE: [place] INSERTION INTRAUTERINE DEVICE IUD; COMMENT: Dr. Carrillo, record indicates removal on 11/29/2010 this was when she had it inserted BARIATRIC SURGERY [id number] PROCEDURE: [place] LAPS GSTRC RSTRICTIV PX LONGITUDINAL GASTRECTOMY THYROIDECTOMY 01/24/2014 PROCEDURE: HISTORICAL TOTAL THYROIDECTOMY OTHER SURGICAL HISTORY 01/2020 PROCEDURE: [place] DILATION & CURETTAGE DX&/THER NONOBSTETRIC Medical History [...] h BMI of 40.0-44.9, adult ([facility]) S/P D&C (status post dilatio n [...] Recently Relevant to Health Maintenance Care Teams Tool Maintenance Worker Relationship Specialty Start Date End Date Dominic Rudolph MD [address] [place] [address] Dr George MA PCP - General Internal Medicine 01/12/20
--- OUTSIDE RECORDS SUMMARY | 2025-07-19 18:42 | XMS_ITS | Clinical Summary ---
Author Organization [employer] Address [address] [facility] [address] [place] [address] Care Team Providers Care Clerical Proofreader Name Role Phone Unavailable Primary Care Provider [...]
== END 2025-07-19 16:26 | disposition home or self-care (01) ==
LOC: HO.ENCR 15:37
PROVIDERS: PCP Internal Medicine; Visit Provider Student in an Organized Health Care Education/Training Program
DX: E89.0 Postprocedural hypothyroidism (principal); C73 Malignant neoplasm of thyroid gland; E66.9 Obesity, unspecified
CPT/HCPCS: 99214; G2211